=== PATIENT | female | born 1960 | race Caucasian/White ===

== ENCOUNTER 2018-06-18 06:26 | Day surgery (SDC) | payer BC, SELFPAY ==
[2018-06-18 06:30] VITALS: BP 142/85; PULSE 69; RESP 17; TEMP 36.2; O2SAT 97
--- NOTE | 2018-06-18 07:37 | W.PM.DSUDISC ---
Discharge Plan Discharge Details Reason For Visit: LOWER LIP BIOPSY Attending Provider: Sharif Nagel Primary Care Provider: Anthony Samaniego Home Meds and New Rx's Prescriptions: No Action lactulose 10 GM/15 ML solution 30 g PO BID PRNQty: 500 RF: 1 ibuprofen 800 MG tablet 800 mg PO QID PRN Qty: 90 RF: 2 erythromycin [Patel-Tab] 250 MG tablet,delayed release (DR/EC) 250 mg PO AC Qty: 90 RF: 2 albuterol sulfate [Ventolin HFA] 8 GM HFA aerosol inhaler 2 puff Inhalation Q4H PRN PRN (Reason: Wheezing) Qty: 1 RF: 0 Discharge Instructions Additional Instructions: see sheet
--- NOTE | 2018-06-18 08:10 | SAL_PTH ---
PATIENT: Ai Morrison LOC: [facility] U#:[id number] AGE/SX: 58/F ROOM: RE06/18/[address]: Sharif Nagel DO : 1960 BED: DIS: 06/18/2018 SPEC #: [id number] RECD: 06/18/18 12:56 STATUS: TANYA REQ #: [id number] CAMILA: 06/18/18 08:[address]: Sharif Nagel DEPT: Surgical Specimen RECD BY: Natalia Galan ENTERED: 06/18/18 12:57 SP TYPE: YURI FERNANDO DR: Anthony Samaniego MD Tissues: 1 - SALIVARY GLAND BIOPSY Procedures: GROSS AND MICRO LEVEL 4 Comments: [id number]
--- NOTE | 2018-06-18 09:25 | ROE_ITS ---
DATE OF PROCEDURE: June 18, 2018 PREOPERATIVE DIAGNOSIS: Dry mouth, rule out Sjogren's disease. POSTOPERATIVE DIAGNOSIS: Same. PROCEDURE: Two separate biopsies of lower lip, stab incision technique, measuring .6 cm. Multiple b iopsies required for increased sensitivity and specificity and variety of minor salivary gland excisi on requirement; simple closure. SURGEON: Sharif Nagel D.O. ANESTHESIA: Local only with 1 cc of 1% Lidocaine with 1:100,000 epinephrine. COMPLICATIONS: None. CONDITION: The patient tolerated the procedure well. SPECIMENS: 1. Minor salivary glands x6 to pathology. INDICATIONS FOR PROCEDURE: This is a pleasant 58-year-old female that is being worked up for Sjogren 's disease. She has had indeterminate laboratory evaluation and has been referred to me for lower li p biopsy of the minor salivary glands to aid in diagnosis to include an increased specificity and sen sitivity of this process. We have opted to proceed with biopsy and gathering of different surgical s ites, so two different biopsy sites were required. Consent was placed in the chart. PROCEDURE: The patient was brought back to the operating suite in stable condition and placed supine on the operating table, given 1 cc of 1% Lidocaine with 1:100,000 epinephrine after it was injected into the right lateral lip. A chalazion clamp was used to isolate two different bundles of minor baldo ivary glands to increase diagnostic probability. A .6 cm stab incision was made to the lip mucosa ov erlying the minor salivary glands. These were removed with sharp dissection. Hemostasis was contro lled with bipolar cautery. This was performed again at two separate identifiable sites to have a gre ater variety of minor salivary gland sampling. Each stab incision was closed with interrupted 4-0 un dyed Vicryl, three placed in a simple fashion. The patient tolerated the procedure well and was stab le to PACU.
== END 2018-06-18 08:29 | disposition home or self-care (01) ==
LOC: SUR 06:27
PROVIDERS: PCP Family Medicine; Visit Provider Otolaryngology Otolaryngology/Facial Plastic Surgery
PROC: 0HB1XZZ Excision of Face Skin, External Approach (ICD-10-PCS; CPT 40490; principal; 2018-06-18 07:30)
DX: M35.00 Sjogren syndrome, unspecified (principal); R68.2 Dry mouth, unspecified
CPT/HCPCS: 40490; 88305

== ENCOUNTER 2018-08-22 00:26 | Outpatient (CLI) | payer BC, SELFPAY ==
[2018-08-22] MEDS: Omnipaque 350 MG/ML 50 ML BTL PO (08:35)
[2018-08-22] MEDS: Breeza Beverage 473 ML BTL PO ×2 (08:35→08:36)
--- NOTE | 2018-08-22 09:10 | DI.CT_ITS ---
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 Images were performed from the lung bases through the ischial tuberosities after IV and oral contrast. The oral contrast is seen in the stomach through distal small bowel. The terminal ileum and colon are not opacified with oral contrast and are suboptimally evaluated. There is increased stool seen throughout the colon. Diverticula are again noted in the lower descending and sigmoid regions. No diverticulitis is seen currently. The appendix appears normal. There is no small bowel dilatation or fold thickening. There is no free air or free fluid. The lung bases are clear. The liver, spleen, pancreas and right adrenal are unremarkable. The patient is status post cholecystectomy. There is a stable low density left adrenal nodule, consistent with an adenoma. The bladder, uterus and ovaries are unremarkable. IMPRESSION: Increased stool. No acute inflammatory changes are identified.
[2018-08-22] MEDS: Omnipaque 350 MG/ML 100 ML BTL IJ (09:16)
== END 2018-08-22 00:46 ==
PROVIDERS: PCP Family Medicine; Visit Provider Internal Medicine Gastroenterology
DX: K90.0 Celiac disease (principal); K59.09 Other constipation; K57.30 Diverticulosis of large intestine without perforation or abscess without bleeding
CPT/HCPCS: 74177; J3490; Q9967

== ENCOUNTER 2018-08-22 14:06 | Emergency (ER) | payer BC, SELFPAY ==
[2018-08-22 14:13] VITALS: BP 159/81; PULSE 71; RESP 16; TEMP 36.5; O2SAT 98
--- NOTE | 2018-08-22 14:45 | W.ED.GENAD ---
Discharge Plan Disposition Patient Disposition: HOME Condition: Improving Discharge Details Chief Complaint: Abd Prob Clinical Impression: Nausea & vomiting Primary Care Provider: Anthony Samaniego ED Provider: Carla Minor Home Meds and New Rx's Prescriptions: New ondansetron 4 mg tablet,disintegrating 4 mg PO QID PRN (Reason: nausea and vomiting) Qty: 10 RF: 0 No Action lactulose 10 GM/15 ML solution 30 g PO BID PRNQty: 500 RF: 1 erythromycin [Patel-Tab] 250 MG tablet,delayed release (DR/EC) 250 mg PO AC Qty: 90 RF: 2 ibuprofen 800 mg tablet 800 mg PO TID PRN (Reason: pain) Qty: 90 RF: 2 albuterol sulfate [Ventolin HFA] 8 GM HFA aerosol inhaler 2 puff Inhalation Q4H PRN PRN (Reason: Wheezing) Qty: 1 RF: 0 Discharge Instructions Instructions: Acute Nausea and Vomiting (ED) Additional Instructions: Encourage hydration. Zofran as prescribed to help with nausea or vomiting. Please follow up with primary care if symptoms persist. If you develop fevers/chills, increased pain, inability to stay hydrated or other new/worsening symptoms please seek care urgently once again. Please keep upcoming appointment with [facility]. Referrals: Anthony Samaniego. [Primary Care Provider] - Discharge Data Discharge Date/Time-TO BE ENTERED AT DEPARTURE: 08/22/18 17:18 Medical Decision Making Patient is a 58-year-old female presenting today with chief complaint of nausea, vomiting and abdominal discomfort. She reports she underwent a CT this morning to evaluate no enlarged lymph nodes. It was ordered by gastroenterology at [facility]. She reports she received both IV and oral contrast. Since that time she has had nausea and vomiting. No difficulty breathing, shortness of breath or rash noted. Has not had episodes like this following previous CT scans. Reports that she has had multiple CTs previously. Contacted gastroenterology who advised evaluation in the emergency department states she is vomited x5 and reports is been forceful. States that around the time of her emesis, she develops abdominal discomfort which she reports is mild and rates it at a 3 out of 10. Reports that this has been migratory and is not reproducible on exam. Patient has history of Sjogren's, celiac, chronic constipation. Reviewed CT that was completed this morning. Radiologist notes increased stool seen throughout the colon. Diverticula are again noted in the lower descending and sigmoid colons. No diverticulitis seen currently. Appendix appears normal. No small bowel dilation or fold thickening. No free air or free fluid. Lung bases are clear. The liver, spleen, pancreas and right adrenal are unremarkable. Patient status post cholecystectomy. There is a stable low-density left adrenal nodule consistent with an adenoma. The bladder, uterus and ovaries are unremarkable Labs without acute abnormality. Discussed these findings with the patient. She received 4 mg of IV Zofran and 50 mg of Toradol. Reports the nausea and headache are minimally better but is requesting further medication at this time. Augment this with Phenergan and 2 mg of morphine. Discussed medical patient was in agreement Patient reports she is feeling much improved. Has been able to tolerate po intake, is drinking water and coffee. Has not been vomiting since being here. We discussed that her nausea and vomiting may be associated with the oral contrast, no signs of further reaction, no evidence of anyphylaxis. Symptoms began over an our after scan. We discussed new/worsening symptoms and when to seek care urgently once again. In particular, advised on signs of reaction. She will contact her GI speciaist at [facility] to discuss CT findings and current ocmplaints. She has upcoming appointment next week. All of her questions and concerns were addressed, she isin agreement with this plan. HPI General Mode of arrival: ambulatory. Date/Time Provider Initiated Documentation: 08/22/18 14:18. Limitations to Documentation: no limitations. Information obtained by: patient. History of Present Illness 58 year old F presents to the emergency department with the chief complaint of Nausea, vomiting and abdominal discomfort, described as mild, with intensity rated at 3. Quality is described as aching, and is localized to the abdomen. Patient reports no radiation. Patient started experiencing this hour(s) and it has been constant. No relieving factors improve symptom(s), No exacerbating factors reported . Patient notes headaches, loss of appetite and nausea/vomiting; denies chest pain, cough, fever/chills, rash, shortness of breath and weakness. Patient did receive the following treatments prior to arrival, none Related Data Home Medications Medication Instructions Recorded Confirmed lactulose 30 g PO BID PRN #500 ml 04/01/15 albuterol sulfate [Ventolin Hfa] 2 puff INHALATION Q4H PRN PRN #1 10/12/16 hfa.aer.ad erythromycin [Patel-Tab] 250 mg PO AC #90 tab-cap 12/15/17 06/18/18 ondansetron 4 mg PO QID PRN #10 tab 08/22/18 ibuprofen 800 mg tablet 800 mg PO TID PRN #90 tab 08/23/18 Previous Rx's Medication Instructions Recorded albuterol sulfate [Ventolin Hfa] 2 puff INHALATION Q4H PRN PRN #1 10/12/16 hfa.aer.ad erythromycin [Patel-Tab] 250 mg PO AC #90 tab-cap 12/15/17 ondansetron 4 mg PO QID PRN #10 tab 08/22/18 ibuprofen 800 mg tablet 800 mg PO TID PRN #90 tab 08/23/18 Allergies Allergy/AdvReac Type Severity Reaction Status Date / Time gluten Allergy Severe Severe Verified 06/18/18 06:39 constipation levofloxacin [From Levaquin] AdvReac Severe Contraindic Verified 06/18/18 06:39 ated General Stated Complaint: Abd Prob DIANA: 3 Review of Systems Constitutional Reports as per HPI, Denies chills, Denies fatigue, Denies fever(s) and Denies headache(s) ENT Denies headache(s) Cardiovascular Reports as per HPI, Denies chest pain and Denies dyspnea Respiratory Denies dyspnea Gastrointestinal Reports as per HPI, Reports abdominal pain, Denies melena, Denies change in bowel habits (Patient endorses chronic constipation), Reports constipation, Denies heartburn, Reports nausea and Reports vomiting (x5) Genitourinary Reports system reviewed and no additional complaints, except as docu (Patient denies any change in urinary habits) Musculoskeletal Reports as per HPI and Denies back pain Integumentary/Breasts Reports as per HPI and Denies rash Neurologic Denies headache(s) Endocrine Denies fatigue PFSH Social History Smoking/Tobacco Use Status: Never Surgical History section Colonoscopy - IV Sedation (02/06/13) EGD - IV Sedation (02/06/13) Social History (Reviewed 08/22/18 @ 14:57 by DEVON Echavarria Smoking/Tobacco Use Status: Never Exam Const General: cooperative, healthy appearing, comfortable, no acute distress and well developed Nutritional Appearance: well nourished and overweight Orientation: alert and awake HENMT Head: normal to inspection Mouth: moist mucous membranes Resp Effort & Inspection: normal respiratory effort, able to speak in complete sentences and no respiratory distress Auscultation: clear to auscultation bilaterally, no rales, no rhonchi and no wheezes Cardio Rate: regular rate Rhythm: regular rhythm Heart Sounds: S1 normal and S2 normal GI Inspection: normal to inspection, no edema, non-distended and obesity Palpation: soft, no hepatosplenomegaly, not firm, no guarding, not rigid and nontender Auscultation: normal bowel sounds Back/Spine/Pelvis Back: no CVA tenderness Skin General skin exam: no rashes or lesions noted Trauma: no lacerations or abrasions Neuro General: alert and awake Cognition: normal cognition Speech: speech normal Gait: normal gait Psych Appearance: grossly normal and well kempt Mental Status: mental status grossly normal Speech and Movement: speech and movement normal Course Vital Signs Temperature 36.5 C 08/22/18 14:13 Pulse 71 08/22/18 14:13 Respiratory Rate 16 08/22/18 14:13 Blood Pressure 159/81 H 08/22/18 14:13 Pulse Oximetry 98 08/22/18 14:13 Temperature 36.5 C 08/22/18 14:13 Temperature Source Skin 08/22/18 14:13 Pulse 71 08/22/18 14:13 Respiratory Rate 16 08/22/18 14:13 Respiratory Effort 08/22/18 14:16 Blood Pressure 159/81 H 08/22/18 14:13 Blood Pressure Position Sitting 08/22/18 14:13 Pulse Oximetry 98 08/22/18 14:13 Oxygen Delivery Method Room Air 08/22/18 14:13 Oxygen Flow Rate 0 08/22/18 14:13 Pain Level 8 08/22/18 14:13 Comment 08/22/18 14:13
--- NOTE | 2018-08-22 15:01 | ED.GENADUL_ITS ---
Discharge Plan Disposition Patient Disposition: HOME Condition: Improving Discharge Details Chief Complaint: Abd Prob Clinical Impression: Nausea & vomiting Primary Care Provider: Anthony Samaniego ED Provider: Carla Minor Home Meds and New Rx's Prescriptions: New ondansetron 4 mg tablet,disintegrating 4 mg PO QID PRN (Reason: nausea and vomiting) Qty: 10 RF: 0 No Action lactulose 10 GM/15 ML solution 30 g PO BID PRNQty: 500 RF: 1 erythromycin [Patel-Tab] 250 MG tablet,delayed release (DR/EC) 250 mg PO AC Qty: 90 RF: 2 ibuprofen 800 mg tablet 800 mg PO TID PRN (Reason: pain) Qty: 90 RF: 2 albuterol sulfate [Ventolin HFA] 8 GM HFA aerosol inhaler 2 puff Inhalation Q4H PRN PRN (Reason: Wheezing) Qty: 1 RF: 0 Discharge Instructions Instructions: Acute Nausea and Vomiting (ED) Additional Instructions: Encourage hydration. Zofran as prescribed to help with nausea or vomiting. Please follow up with primary care if symptoms persist. If you develop fevers/ chills, increased pain, inability to stay hydrated or other new/worsening symptoms please seek care urgently once again. Please keep upcoming appointment with [facility]. Referrals: Anthony Samaniego. [Primary Care Provider] - Discharge Data Discharge Date/Time-TO BE ENTERED AT DEPARTURE: 08/22/18 17:18 Medical Decision Making Patient is a 58-year-old female presenting today with chief complaint of nausea , vomiting and abdominal discomfort. She reports she underwent a CT this morning to evaluate no enlarged lymph nodes. It was ordered by gastroenterology at [facility]. She reports she received both IV and oral contrast. Since that time she has had nausea and vomiting. No difficulty breathing, shortness of breath or rash noted. Has not had episodes like this following previous CT scans. Reports that she has had multiple CTs previously. Contacted gastroenterology who advised evaluation in the emergency department states she is vomited x5 and reports is been forceful. States that around the time of her emesis, she develops abdominal discomfort which she reports is mild and rates it at a 3 out of 10. Reports that this has been migratory and is not reproducible on exam. Patient has history of Sjogren's, celiac, chronic constipation. Reviewed CT that was completed this morning. Radiologist notes increased stool seen throughout the colon. Diverticula are again noted in the lower descending and sigmoid colons. No diverticulitis seen currently. Appendix appears normal. No small bowel dilation or fold thickening. No free air or free fluid. Lung bases are clear. The liver, spleen, pancreas and right adrenal are unremarkable. Patient status post cholecystectomy. There is a stable low- density left adrenal nodule consistent with an adenoma. The bladder, uterus and ovaries are unremarkable Labs without acute abnormality. Discussed these findings with the patient. She received 4 mg of IV Zofran and 50 mg of Toradol. Reports the nausea and headache are minimally better but is requesting further medication at this time. Augment this with Phenergan and 2 mg of morphine. Discussed medical patient was in agreement Patient reports she is feeling much improved. Has been able to tolerate po intake, is drinking water and coffee. Has not been vomiting since being here. We discussed that her nausea and vomiting may be associated with the oral contrast, no signs of further reaction, no evidence of anyphylaxis. Symptoms began over an our after scan. We discussed new/worsening symptoms and when to seek care urgently once again. In particular, advised on signs of reaction. She will contact her GI speciaist at [facility] to discuss CT findings and current ocmplaints. She has upcoming appointment next week. All of her questions and concerns were addressed, she isin agreement with this plan. HPI General Mode of arrival: ambulatory . Date/Time Provider Initiated Documentation: 08/22/18 14:18 . Limitations to Documentation: no limitations . Information obtained by: patient . History of Present Illness 58 year old F presents to the emergency department with the chief complaint of Nausea, vomiting and abdominal discomfort, described as mild, with intensity rated at 3. Quality is described as aching, and is localized to the abdomen. Patient reports no radiation. Patient started experiencing this hour(s) and it has been constant. No relieving factors improve symptom( s), No exacerbating factors reported . Patient notes headaches, loss of appetite and nausea/vomiting; denies chest pain, cough, fever/chills, rash, shortness of breath and weakness. Patient did receive the following treatments prior to arrival, none Related Data Home Medications Medication Instructions Recorded Confirmed lactulose 30 g PO BID PRN #500 ml 04/01/15 albuterol sulfate [Ventolin Hfa] 2 puff INHALATION Q4H PRN PRN #1 10/12/16 hfa.aer.ad erythromycin [Patel-Tab] 250 mg PO AC #90 tab-cap 12/15/17 06/18/18 ondansetron 4 mg PO QID PRN #10 tab 08/22/18 ibuprofen 800 mg tablet 800 mg PO TID PRN #90 tab 08/23/18 Previous Rx's Medication Instructions Recorded albuterol sulfate [Ventolin Hfa] 2 puff INHALATION Q4H PRN PRN #1 10/12/16 hfa.aer.ad erythromycin [Patel-Tab] 250 mg PO AC #90 tab-cap 12/15/17 ondansetron 4 mg PO QID PRN #10 tab 08/22/18 ibuprofen 800 mg tablet 800 mg PO TID PRN #90 tab 08/23/18 Allergies Allergy/AdvReac Type Severity Reaction Status Date / Time gluten Allergy Severe Severe Verified 06/18/18 06:39 constipation levofloxacin [From Levaquin] AdvReac Severe Contraindic Verified 06/18/18 06:39 ated General Stated Complaint: Abd Prob DIANA: 3 Review of Systems Constitutional Reports as per HPI, Denies chills, Denies fatigue, Denies fever(s) and Denies headache(s) ENT Denies headache(s) Cardiovascular Reports as per HPI, Denies chest pain and Denies dyspnea Respiratory Denies dyspnea Gastrointestinal Reports as per HPI, Reports abdominal pain, Denies melena, Denies change in bowel habits (Patient endorses chronic constipation), Reports constipation, Denies heartburn, Reports nausea and Reports vomiting (x5) Genitourinary Reports system reviewed and no additional complaints, except as docu (Patient denies any change in urinary habits) Musculoskeletal Reports as per HPI and Denies back pain Integumentary/Breasts Reports as per HPI and Denies rash Neurologic Denies headache(s) Endocrine Denies fatigue PFSH Social History Smoking/Tobacco Use Status: Never Surgical History section Colonoscopy - IV Sedation (02/06/13) EGD - IV Sedation (02/06/13) Social History (Reviewed 08/22/18 @ 14:57 by DEVON Echavarria Smoking/Tobacco Use Status: Never Exam Const General: cooperative, healthy appearing, comfortable, no acute distress and well developed Nutritional Appearance: well nourished and overweight Orientation: alert and awake HENMT Head: normal to inspection Mouth: moist mucous membranes Resp Effort & Inspection: normal respiratory effort, able to speak in complete sentences and no respiratory distress Auscultation: clear to auscultation bilaterally, no rales, no rhonchi and no wheezes Cardio Rate: regular rate Rhythm: regular rhythm Heart Sounds: S1 normal and S2 normal GI Inspection: normal to inspection, no edema, non-distended and obesity Palpation: soft, no hepatosplenomegaly, not firm, no guarding, not rigid and nontender Auscultation: normal bowel sounds Back/Spine/Pelvis Back: no CVA tenderness Skin General skin exam: no rashes or lesions noted Trauma: no lacerations or abrasions Neuro General: alert and awake Cognition: normal cognition Speech: speech normal Gait: normal gait Psych Appearance: grossly normal and well kempt Mental Status: mental status grossly normal Speech and Movement: speech and movement normal Course Vital Signs Temperature 36.5 C 08/22/18 14:13 Pulse 71 08/22/18 14:13 Respiratory Rate 16 08/22/18 14:13 Blood Pressure 159/81 H 08/22/18 14:13 Pulse Oximetry 98 08/22/18 14:13 Temperature 36.5 C 08/22/18 14:13 Temperature Source Skin 08/22/18 14:13 Pulse 71 08/22/18 14:13 Respiratory Rate 16 08/22/18 14:13 Respiratory Effort 08/22/18 14:16 Blood Pressure 159/81 H 08/22/18 14:13 Blood Pressure Position Sitting 08/22/18 14:13 Pulse Oximetry 98 08/22/18 14:13 Oxygen Delivery Method Room Air 08/22/18 14:13 Oxygen Flow Rate 0 08/22/18 14:13 Pain Level 8 08/22/18 14:13 Comment 08/22/18 14:13
[2018-08-22] MEDS: Ondansetron 4 MG/2 ML VIAL IVP (15:02)
[2018-08-22] MEDS: Ketorolac 15 MG/ML VIAL IVP (15:02)
[2018-08-22] MEDS: Normal Saline 1,000 ML 1000 ML IV (15:02)
[2018-08-22 15:10] LABS: Abs Immature Grans 0.01 k/cumm (0.0-0.09); Absolute Basophil Count 0.02 k/cumm (0.0-0.2); Absolute Eosinophil Count 0.02 k/cumm (0.0-0.7); Absolute Lymphocyte Count 1.04 k/cumm (1.2-3.4); Absolute Monocyte Count 0.29 k/cumm (0.11-0.7); Absolute Neutrophil Count 5.71 k/cumm (1.2-6.7); Basophils % 0.3; Eosinophils % 0.3; HCT 37.9 % (36.0-46.0); HGB 12.7 g/dL (12.0-15.5); Immature Grans % 0.1; Lymphocytes % 14.7; Mean Corp. HGB Concentration 33.5 g/dL (32.0-36.0); Mean Corpuscular Hemoglobin 32.3 pg (27.0-33.0); Mean Corpuscular Volume 96.4 fL (80-95); Mean Platelet Volume 10.7 fL (8.0-11.0); Monocytes % 4.1; Neutrophils % 80.5; Platelet Count 261 x1000/uL (130-400); RBC 3.93 m/cumm (4.00-5.20); RBC Distribution Width 13.1 % (11.7-14.6); White Blood Cell Count 7.09 k/cumm (4.4-10.8)
[2018-08-22 15:23] LABS: ALT 21 U/L (12-78); AST 18 U/L (15-37); Albumin 3.6 g/dL (3.4-5.0); Alkaline Phosphatase 107 U/L (46-116); Anion Gap 8.7 mmol/L (3-11); BUN 18 mg/dL (7-18); Bilirubin, Total 0.4 mg/dL (0.2-1.0); CO2 27.3 mmol/L (21.0-32.0); CREATININE 0.93 mg/dL (0.55-1.02); Chloride 103 mmol/L (98-107); Glucose 110 mg/dL (70-100); Potassium 3.8 mmol/L (3.5-5.1); Sodium 139 mmol/L (136-145); Total Protein 7.4 g/dL (6.4-8.2)
[2018-08-22 15:31] LABS: Lipase 65 U/L (73-393)
[2018-08-22] MEDS: MORPHine 10 MG/ML VIAL 2 MG IVP (15:55)
[2018-08-22 16:34] VITALS: O2SAT 94
[2018-08-22 16:40] VITALS: O2SAT 94
[2018-08-22 16:46] VITALS: BP 116/58; PULSE 71
[2018-08-22 17:01] VITALS: BP 122/61; PULSE 77
[2018-08-22 17:11] VITALS: BP 122/61; PULSE 77; RESP 16; TEMP 36.7; O2SAT 94
== END 2018-08-22 17:18 | disposition home or self-care (01) ==
LOC: ER 17:20
PROVIDERS: Emergency Provider Physician Assistant; PCP Family Medicine
DX: R11.2 Nausea with vomiting, unspecified (principal)
CPT/HCPCS: 36415; 80053; 83690; 96374; 96375; 99284; 85025; J1885; J2270; J2405

== ENCOUNTER 2019-03-06 07:10 | Outpatient (CLI) | payer BC, SELFPAY ==
--- NOTE | 2019-03-06 07:40 | DI.MAMMO_ITS ---
SYMPTOM/DIAGNOSIS: SCREENING, Z12.31 MAMMOGRAMS: Mammograms were interpreted according to the usual protocol including computer analysis with CAD system, tomosynthesis and C view imaging. Comparison is with prior examinations. No suspicious masses or microcalcifications are seen. There is no definite evidence of malignancy. IMPRESSION: Negative mammogram. Routine screening is recommended. Category 1, breast density A. MQSA ASSESSMENT OF FINDINGS: Negative. Category 1. Patient will receive a letter notifying them of these results. BI-RAD category A. The breasts are almost entirely fatty.
== END 2019-03-06 07:30 ==
PROVIDERS: PCP Family Medicine; Visit Provider Obstetrics & Gynecology
DX: Z12.31 Encounter for screening mammogram for malignant neoplasm of breast (principal)
CPT/HCPCS: 77063; 77067

== ENCOUNTER 2019-10-16 10:40 | Outpatient (CLI) | payer BC, SELFPAY ==
[2019-10-16 12:51] LABS: Calculated LDL 90 mg/dL; Cholesterol 165 mg/dL (<200); HDL Cholesterol 64 mg/dL (40-60); Triglyceride 57 mg/dL (<150)
== END 2019-10-16 11:00 ==
PROVIDERS: PCP Family Medicine; Visit Provider Family Medicine
DX: E78.5 Hyperlipidemia, unspecified (principal)
CPT/HCPCS: 36415; 80061

== ENCOUNTER 2020-04-15 02:19 | Outpatient (CLI) | payer BC, SELFPAY ==
--- NOTE | 2020-04-15 | DI.MAMMO_ITS ---
EXAM: MG MAMMO SCREENING CLINICAL HISTORY: SCREENING, Z12.31 TECHNIQUE: Bilateral full field digital CC and MLO mammographic images were obtained with 3D tomosyn thesis and utilizing computer aided detection (CAD). COMPARISON: Available for comparison. FINDINGS: Masses/Architectural Distortion: None seen. Microcalcifications: No suspicious pleomorphic-type are seen. Skin Thickening/Nipple Retraction: None. IMPRESSION: 1. No significant interval change with no specific features of malignancy noted. 2. Unless there is more urgent need, screening mammography is recommended, as per [employer] guidelines. BI-RADS Category 1 - Negative Breast Density - Category A - Almost entirely fatty A negative radiographic report should not delay biopsy if a dominant or clinically suspicious mass is present. Up to ten percent of cancers are not identified on mammography. A negative report may reinforce clinical impression. Adenosis and dense breasts may obscure an underlying neoplasm. False positive reports average 6 to 10%. Patient will receive a letter notifying them of these results.
== END 2020-04-15 02:39 ==
PROVIDERS: PCP Family Medicine; Visit Provider Obstetrics & Gynecology
DX: Z12.31 Encounter for screening mammogram for malignant neoplasm of breast (principal)
CPT/HCPCS: 77063; 77067

== ENCOUNTER 2020-12-22 03:45 | Outpatient (CLI) | payer BC, SELFPAY ==
[2020-12-22 10:46] LABS: Abs Immature Grans 0.01 10^3/uL (0.0-0.06); Absolute Basophil Count 0.04 10^3/uL (0.0-0.2); Absolute Eosinophil Count 0.11 10^3/uL (0.0-0.7); Absolute Lymphocyte Count 1.42 10^3/uL (1.2-3.4); Absolute Monocyte Count 0.34 10^3/uL (0.1-0.8); Basophils % 0.9; Eosinophils % 2.5; HCT 37.6 % (36.0-46.0); HGB 12.2 g/dL (11.2-15.7); Immature Grans % 0.2; Lymphocytes % 32.6; MCH 32.4 pg (27.0-33.0); MCHC 32.4 % (32.0-36.0); MPV 10.9 fL (8.0-11.0); Monocytes % 7.8; Nucleated RBC 0 %; Platelet Count 261 10^3/uL (130-400); RBC 3.76 10^6/uL (3.93-5.22); RDW 13.1 % (11.7-14.6); RDW-SD 48.3 fL; WBC 4.35 10^3/uL (4.4-10.8)
[2020-12-22 10:49] LABS: Absolute Neutrophil Count 2.44 10^3/uL (1.2-6.7)
[2020-12-22 10:55] LABS: ESR 10 mm//hr (0-30)
[2020-12-22 11:16] LABS: ALT 20 U/L (14-59); AST 19 U/L (15-37); Albumin 3.8 g/dL (3.4-5.0); Alkaline Phosphatase 105 U/L (46-116); Bilirubin, Direct 0.1 mg/dL (0.0-0.2); Bilirubin, Total 0.4 mg/dL (0.2-1.0); C-Reactive Protein < 0.05 mg/dL (0.0-0.3); Estimated GFR 56.56 (mL/min/1.73m2); Total Protein 7.1 g/dL (6.4-8.2)
[2020-12-23 09:15] LABS: C3 Complement 110 mg/dL (81-157); C4 Complement 23 mg/dL (13-39)
[2020-12-23 13:09] LABS: Albumin 61.6 % (55.8-66.1); Total Protein 6.4 g/dL (6.3-8.2)
[2020-12-23 17:54] LABS: Complement, Total >75 U/mL (30-75)
[2020-12-24 04:33] LABS: Vitamin D 25 Total 47.2 ng/mL (30-100)
[2020-12-24 13:41] LABS: Cryoglobulin, S Negative %ppt (Negative)
[2020-12-24 13:42] LABS: dsDNA Ab, IgG <12.3 IU/mL (<30.0)
== END 2020-12-22 03:46 | disposition home or self-care (01) ==
LOC: LBO 03:45
PROVIDERS: PCP Family Medicine; Visit Provider Internal Medicine
DX: M35.00 Sjogren syndrome, unspecified (principal); E55.9 Vitamin D deficiency, unspecified; Z79.899 Other long term (current) drug therapy; M25.59 Pain in other specified joint
CPT/HCPCS: 36415; 80076; 82306; 85652; 82565; 82595; 84165; 85025; 86140; 86160; 86162; 86225

== ENCOUNTER 2021-05-10 03:03 | Outpatient (CLI) | payer BC, SELFPAY ==
[2021-05-10 08:01] LABS: Calculated LDL 96 mg/dL (<100); Cholesterol 187 mg/dL (<200); HDL Cholesterol 80 mg/dL (40-60); Triglyceride 56 mg/dL (<150)
== END 2021-05-10 03:04 | disposition home or self-care (01) ==
LOC: LBO 03:04
PROVIDERS: PCP Family Medicine; Visit Provider Family Medicine
DX: E78.5 Hyperlipidemia, unspecified (principal)
CPT/HCPCS: 36415; 80061

== ENCOUNTER 2021-06-16 18:43 | Outpatient (REF) | payer BC, SELFPAY ==
[2021-06-18 10:56] LABS: COVID-19 RT-PCR UVMMC Result Negative (Negative)
== END 2021-06-16 18:44 | disposition home or self-care (01) ==
LOC: LBN 18:43
PROVIDERS: PCP Family Medicine; Visit Provider Nurse Practitioner Family
DX: Z20.822 Contact with and (suspected) exposure to COVID-19 (principal); R05 Cough
CPT/HCPCS: U0003

== ENCOUNTER 2021-06-23 03:32 | Outpatient (CLI) | payer BC, SELFPAY ==
[2021-06-23 16:05] LABS: Abs Immature Grans 0.01 10^3/uL (0.0-0.06); Absolute Basophil Count 0.06 10^3/uL (0.0-0.2); Absolute Eosinophil Count 0.11 10^3/uL (0.0-0.7); Absolute Lymphocyte Count 2.01 10^3/uL (1.2-3.4); Absolute Monocyte Count 0.37 10^3/uL (0.1-0.8); Absolute Neutrophil Count 2.86 10^3/uL (1.2-6.7); Basophils % 1.1; HCT 36.7 % (36.0-46.0); HGB 11.9 g/dL (11.2-15.7); Immature Grans % 0.2; Lymphocytes % 37.1; MCH 32.7 pg (27.0-33.0); MCHC 32.4 % (32.0-36.0); MCV 100.8 fL (80-95); MPV 9.9 fL (8.0-11.0); Monocytes % 6.8; Neutrophils % 52.8; Nucleated RBC 0 %; Platelet Count 270 10^3/uL (130-400); RBC 3.64 10^6/uL (3.93-5.22); RDW 13.2 % (11.7-14.6); RDW-SD 49.4 fL; WBC 5.42 10^3/uL (4.4-10.8)
[2021-06-23 16:10] LABS: ESR 11 mm/hr (0-30)
[2021-06-23 16:48] LABS: ALT 26 U/L (14-59); AST 23 U/L (15-37); Alkaline Phosphatase 109 U/L (46-116); Bilirubin, Direct 0.1 mg/dL (0.0-0.2); Bilirubin, Total 0.2 mg/dL (0.2-1.0); C-Reactive Protein 0.06 mg/dL (0.0-0.3); Estimated GFR 56.37 (mL/min/1.73m2); Total Protein 7.2 g/dL (6.4-8.2)
[2021-06-24 19:48] LABS: Rheumatoid Factor <8.6 IU/mL (<12.0)
[2021-06-25 09:29] LABS: C3 Complement 117 mg/dL (81-157); C4 Complement 24 mg/dL (13-39)
[2021-06-25 17:42] LABS: Complement, Total 75 U/mL (30-75)
[2021-06-28 12:19] LABS: Cryoglobulin, S Negative %ppt (Negative)
[2021-06-29 10:41] LABS: dsDNA Ab, IgG <12.3 IU/mL (<30.0)
== END 2021-06-23 03:33 | disposition home or self-care (01) ==
LOC: LBO 03:32
PROVIDERS: PCP Family Medicine; Visit Provider Internal Medicine
DX: M35.00 Sjogren syndrome, unspecified (principal); M19.90 Unspecified osteoarthritis, unspecified site; Z79.899 Other long term (current) drug therapy; R21 Rash and other nonspecific skin eruption
CPT/HCPCS: 36415; 80076; 85652; 82565; 82595; 85025; 86140; 86160; 86162; 86225; 86431

== ENCOUNTER 2021-09-29 01:24 | Outpatient (CLI) | payer BC, SELFPAY ==
--- NOTE | 2021-09-29 11:00 | DI.MAMMO_ITS ---
Exam(s) MAMMO SCREENING EXAM: MAMMO SCREENING CLINICAL HISTORY: SCREENING, Z12.31 TECHNIQUE: Mammograms were interpreted according to the usual protocol including computer analysis w [employer] CAD system, tomosynthesis and C-view imaging. COMPARISON: FINDINGS: The breasts are of moderate density with fairly symmetrical distribution of fibroglandular tissue. N o dominant mass or clumped microcalcification is identified in either breast. The current examinatio n is compared with previous examinations including March 2020 and there has been no gross interval coty nge in appearance in comparison with the prior studies. IMPRESSION: No specific evidence of malignancy at this time. Routine screening examinations are suggested at yea rly intervals in this age group according to the ACS ACR guidelines. BI-RADS Category 1 - Negative Breast Density - Category B - Scattered areas of fibroglandular density
== END 2021-09-29 01:44 ==
PROVIDERS: PCP Family Medicine; Visit Provider Obstetrics & Gynecology
DX: Z12.31 Encounter for screening mammogram for malignant neoplasm of breast (principal)
CPT/HCPCS: 77063; 77067

== ENCOUNTER 2021-09-29 01:25 | Outpatient (CLI) | payer BC, SELFPAY ==
--- NOTE | 2021-09-29 10:52 | DI.RAD_ITS ---
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 Cartilaginous joint space of the glenohumeral joint appears fairly well ma intained. There are mild hypertrophic degenerative changes of acromioclavicular and glenohumeral viri nts, small marginal osteophytes seen inferiorly at the humeral head glenoid. No erosive or destructi ve process. No abnormal soft tissue calcifications. IMPRESSION: Mild degenerative changes as described above. RADIATION DOSE DELIVERED: Total DLP
--- NOTE | 2021-09-29 10:52 | DI.RAD_ITS ---
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 The cartilaginous joint space of the glenohumeral joint appears fairly well maintained. Mild hypertrophic degenerative changes of acromioclavicular and glenoid humeral joints are noted. No other significant bony abnormality seen. No gross erosive or destructive process iden tified. No abnormal soft tissue calcifications. IMPRESSION: Mild degenerative changes as described above. RADIATION DOSE DELIVERED: Total DLP
== END 2021-09-29 01:45 ==
PROVIDERS: PCP Family Medicine; Visit Provider Internal Medicine
DX: M25.511 Pain in right shoulder (principal); M25.512 Pain in left shoulder; M19.011 Primary osteoarthritis, right shoulder; M19.012 Primary osteoarthritis, left shoulder; G89.29 Other chronic pain
CPT/HCPCS: 73030

== ENCOUNTER 2021-10-13 02:15 | Outpatient (CLI) | payer BC, SELFPAY ==
[2021-10-13 08:42] LABS: Abs Immature Grans 0.01 10^3/uL (0.0-0.06); Absolute Basophil Count 0.04 10^3/uL (0.0-0.2); Absolute Eosinophil Count 0.11 10^3/uL (0.0-0.7); Absolute Lymphocyte Count 1.51 10^3/uL (1.2-3.4); Absolute Monocyte Count 0.38 10^3/uL (0.1-0.8); Basophils % 0.9; Eosinophils % 2.6; HCT 36.5 % (36.0-46.0); Immature Grans % 0.2; Lymphocytes % 35.4; MCH 32.6 pg (27.0-33.0); MCHC 32.9 % (32.0-36.0); MCV 99.2 fL (80-95); MPV 10.2 fL (8.0-11.0); Monocytes % 8.9; Nucleated RBC 0 %; Platelet Count 229 10^3/uL (130-400); RBC 3.68 10^6/uL (3.93-5.22); RDW 12.9 % (11.7-14.6); RDW-SD 47.1 fL; WBC 4.26 10^3/uL (4.4-10.8)
[2021-10-13 08:44] LABS: Absolute Neutrophil Count 2.22 10^3/uL (1.2-6.7)
[2021-10-13 08:54] LABS: ESR 8 mm/hr (0-30)
[2021-10-13 10:10] LABS: ALT 18 U/L (14-59); AST 19 U/L (15-37); Albumin 3.7 g/dL (3.4-5.0); Alkaline Phosphatase 85 U/L (46-116); Bilirubin, Direct 0.1 mg/dL (0.0-0.2); Bilirubin, Total 0.3 mg/dL (0.2-1.0); C-Reactive Protein 0.07 mg/dL (0.0-0.3); CREATININE 0.9 mg/dL (0.55-1.02); Total Protein 6.6 g/dL (6.4-8.2)
== END 2021-10-13 02:16 | disposition home or self-care (01) ==
LOC: LBO 02:16
PROVIDERS: PCP Family Medicine; Visit Provider Internal Medicine
DX: M35.00 Sjogren syndrome, unspecified (principal); H04.123 Dry eye syndrome of bilateral lacrimal glands; M25.511 Pain in right shoulder; M25.512 Pain in left shoulder; G89.29 Other chronic pain; M19.071 Primary osteoarthritis, right ankle and foot; Z51.81 Encounter for therapeutic drug level monitoring; Z79.899 Other long term (current) drug therapy
CPT/HCPCS: 36415; 80076; 85652; 82565; 85025; 86140

== ENCOUNTER 2021-10-29 01:50 | Outpatient (CLI) | payer BC, SELFPAY ==
[2021-10-29 13:32] LABS: Abs Immature Grans 0.01 10^3/uL (0.0-0.06); Absolute Basophil Count 0.04 10^3/uL (0.0-0.2); Absolute Eosinophil Count 0.08 10^3/uL (0.0-0.7); Absolute Lymphocyte Count 1.74 10^3/uL (1.2-3.4); Absolute Monocyte Count 0.32 10^3/uL (0.1-0.8); Absolute Neutrophil Count 3.22 10^3/uL (1.2-6.7); Basophils % 0.7; Eosinophils % 1.5; HGB 11.7 g/dL (11.2-15.7); Immature Grans % 0.2; Lymphocytes % 32.2; MCH 32.4 pg (27.0-33.0); MCHC 32.5 % (32.0-36.0); MCV 99.7 fL (80-95); MPV 10.3 fL (8.0-11.0); Monocytes % 5.9; Neutrophils % 59.5; Nucleated RBC 0 %; Platelet Count 246 10^3/uL (130-400); RBC 3.61 10^6/uL (3.93-5.22); RDW 12.9 % (11.7-14.6); RDW-SD 47.5 fL; WBC 5.41 10^3/uL (4.4-10.8)
[2021-10-29 14:30] LABS: Iron 64 ug/dL (50-170); Total Iron Binding Capacity 276 ug/dL (250-450)
[2021-10-29 14:38] LABS: Bilirubin Negative (Negative); Blood Negative (Negative); Clarity Clear (Clear); Glucose Negative (Negative); Ketones Negative (Negative); Leukocyte Esterase Negative (Negative); Nitrite Negative (Negative); Specific Gravity >= 1.030 (1.005-1.025); Urobilinogen 0.2 EU/dL (Up TO 0.2)
[2021-10-29 14:59] LABS: ALT 21 U/L (14-59); AST 18 U/L (15-37); Albumin 3.9 g/dL (3.4-5.0); Alkaline Phosphatase 90 U/L (46-116); BUN 19 mg/dL (7-18); Bilirubin, Total 0.3 mg/dL (0.2-1.0); Calcium 9.1 mg/dL (8.5-10.1); Chloride 105 mmol/L (98-107); Estimated GFR 56.37 (mL/min/1.73m2); Ferritin 129 ng/mL (8-252); Folate 4.7 ng/mL (8.6-20.0); Glucose 90 mg/dL (74-106); Potassium 3.6 mmol/L (3.5-5.1); Sodium 142 mmol/L (136-145); TSH 2.29 uIU/mL (0.36-3.74); Total Protein 7.1 g/dL (6.4-8.2); Vitamin B12 360 pg/mL (193-986)
[2021-10-29 15:11] LABS: Bilirubin, Direct 0.1 mg/dL (0.0-0.2)
[2021-10-29 22:40] LABS: Rheumatoid Factor <8.6 IU/mL (<12.0)
[2021-11-01 05:24] LABS: Vitamin D 25 Total 40.8 ng/mL (30-100)
[2021-11-01 10:32] LABS: Hepatitis C Ab w Rflx HCV PCR Negative (Negative)
[2021-11-01 10:38] LABS: HBs Antibody, Quant <3.1 mIU/mL (See Note); Hepatitis B Surface Ab Negative (See Note)
[2021-11-01 10:46] LABS: Hepatitis B Surface Ag Negative (Negative)
[2021-11-01 10:47] LABS: C3 Complement 116 mg/dL (81-157); C4 Complement 26 mg/dL (13-39); Kappa Free Light Chain 1.53 mg/dL (0.33-1.94); Lambda Free Light Chain 1.58 mg/dL (0.57-2.63)
[2021-11-01 11:20] LABS: Hep B Core Antibody Negative (Negative)
[2021-11-01 11:43] LABS: HIV-1/2 Ag & Ab Screen Negative (Negative)
[2021-11-01 12:32] LABS: TB Interpretation Negative (Negative); TB2 Ag minus Nil 0.01 IU/mL
[2021-11-01 13:23] LABS: Albumin 62.3 % (55.8-66.1); Total Protein 6.8 g/dL (6.3-8.2)
[2021-11-01 14:11] LABS: Albumin, Urine % 16.2 %; Globulins, Urine % 83.8 %; Immunotyping, Urine (See Note); Total Protein Urine <5 mg/dL (See Note)
[2021-11-01 18:18] LABS: Complement, Total 67 U/mL (30-75)
[2021-11-02 12:06] LABS: Cryoglobulin, S Negative %ppt (Negative)
[2021-11-02 14:19] LABS: 6-Methylmercaptopurine ribosid 7.38 nmol/mL/h (5.04-9.57)
== END 2021-10-29 01:51 | disposition home or self-care (01) ==
LOC: LBO 01:50
PROVIDERS: PCP Family Medicine; Visit Provider Internal Medicine
DX: M25.511 Pain in right shoulder (principal); G89.29 Other chronic pain; M35.00 Sjogren syndrome, unspecified; Z51.81 Encounter for therapeutic drug level monitoring; Z79.899 Other long term (current) drug therapy; Z11.4 Encounter for screening for human immunodeficiency virus [HIV]; Z11.59 Encounter for screening for other viral diseases
CPT/HCPCS: 36415; 80053; 80076; 82306; 82657; 84156; 84166; 86335; 86704; 86706; 86803; 87340; 87389; 81003; 82595; 82607; 82728; 82746; 83540; 83550; 83883; 84165; 84443; 85025; 86160; 86162; 86431; 86480

== ENCOUNTER 2021-10-29 15:12 | Outpatient (CLI) | payer BC, SELFPAY | END 2021-10-29 15:13 | disposition home or self-care (01) | LOC: LBO 15:14 | PROVIDERS: PCP Family Medicine; Visit Provider Internal Medicine ==

== ENCOUNTER 2021-11-01 11:19 | Emergency (ER) | payer BC, SELFPAY ==
[2021-11-01 11:23] VITALS: BP 147/97; PULSE 81; RESP 18; TEMP 36; O2SAT 98
--- NOTE | 2021-11-01 11:45 | RT.EKG_ITS ---
APPROVED REPORT Exam: Resting ECG Reason for Exam: QT serafin Patient Location: E HR:61 bpm ECG Measurements Heart Rate 61 AXIS SC 182 P -23 QRSd 114 QRS -22 QT 420 T -12 QTc 423 Conclusion Sinus rhythm...normal P axis, V-rate 60- 99 Low voltage, extremity leads...all extremity leads <0.5mV sinus rhythm at 61, normal axis, low voltage extremity leads, QTC 423, no STEMI
--- NOTE | 2021-11-01 12:02 | ED.GENADUL_ITS ---
Discharge Plan Disposition Patient Disposition: HOME Condition: Improving Discharge Details Clinical Impression: Low back pain, Right lower quadrant abdominal pain Primary Care Provider: Anthony Samaniego ED Provider: Sherry Mai Home Meds and New Rx's Prescriptions: New prednisone 20 mg tablet 40 mg PO DAILY Qty: 8 0RF Rx Instructions: Please begin taking 11/02/21 cyclobenzaprine 5 mg tablet 5 mg PO TID PRN (Reason: muscle spasm) Qty: 6 0RF Continued Norel AD 4-10-325 mg tablet 1 tab PO Q4H PRN (Reason: cold symptoms) Qty: 30 0RF lactulose 10 GM/15 ML solution 30 g PO BID PRNQty: 500 1RF Rx Instructions: maximum dose is 60 gm (no more than twice/day) gabapentin 300 mg capsule 300 mg PO TID 0RF hydroxychloroquine 200 mg tablet 400 mg PO DAILY 0RF cevimeline 30 mg capsule 1 cap PO TID 0RF cholecalciferol (vitamin D3) 1,250 mcg (50,000 unit) capsule 50,000 unit PO QMONTH 0RF meloxicam [Mobic] 7.5 mg tablet See Rx Instructions .ROUTE .COMPLEX 0RF Label Comments: TAKE 1 TABLET BY MOUTH DAILY Rx Instructions: Take 1 tab once daily Discharge Instructions Instructions: Prednisone (By mouth), Cyclobenzaprine (By mouth), Abdominal Pain (ED), Back Pain (ED) Additional Instructions: Please return immediately to the emergency department if you develop any new or worsening symptoms, if your condition does not improve as expected, or if you become otherwise concerned. It is extremely important that you call soon as possible to make an appointment to be seen in follow-up for this visit by your primary care doctor and your textile colorist dyer as we discussed Referrals: Anthony Samaniego MD [Primary Care Provider] - Discharge Data Discharge Date/Time-TO BE ENTERED AT DEPARTURE: 11/01/21 16:03 Medical Decision Making Ai Morrison is a 61-year-old woman with a history of fibromyalgia, Sjogren's syndrome on Plaquenil presenting to emergency department with right lower quadrant pain. Patient reports that over the past week she has had gradually worsening pain across her lower back radiating down the outside of her right thigh. Patient reports that in the past 24 hours she has also developed right lower quadrant pain, nonradiating. She reports that she also has some bilateral shoulder pain. Patient reports that she had Zoom meeting with her textile colorist dyer last week for shoulder pain and back pain, during which her textile colorist dyer was concerned about possible Sjogren's flare. Patient reports that she is supposed to see her textile colorist dyer in person this week in follow-up. Not currently taking any steroids. She denies any other pain. She she reports chronic unchanged constipation from baseline, had bowel movement this morning. She denies fever, cough, shortness of breath, vomiting, diarrhea, numbness, focal weakness, rash, dysuria. On exam Pt is well and non-toxic appearing. No abdominal TTP, but reports TTP of the right inguinal region with o/w normal exam of the area. Diffuse TTP of the lumbar spine and paraspinals b/l. Benign neuro exam of b/l LEs. + straight leg test on right, - on left. Concern for sciatica vs pathologic fx vs less likely appy, other. Exam/hx at this time is not c/w cauda equina, epidural hematoma, epidural abscess, other cord compression, sepsis. Plan for IV placement, EKG for QT eval, IV fluid hydration, IV morphine, IV Zofran, screening labs, CT abdomen/pelvis, lumbar reconstructions. Will monitor and reassess. Labs reviewed, WBC 5.84, Hgb 12, CRP <0.05, ESR 12. CT shows no acute process per radiology. Concern for likely sciatica as etiology of pain, sjogrens flare may be a factor. Plan for flexeril, prednisone, NSAIDs. Discussed safe use of flexeril with current gabapentin and other OTC meds, importance of outpt f/u with PCP and rheum. I had a discussion with Patient regarding return to emergency department precautions, home care, and importance of outpatient follow-up. Pt verbalizes understanding of the plan and is amenable. Patient discharged to home with clear plan for outpatient follow-up. All questions were answered. Disposition decision was made weighing the risks and benefits of hospitalization versus outpatient treatment, the risk for further decompensation, and the patient's wishes. Medical Records Medical records reviewed: Yes I reviewed the patient's medical records. Imaging Data Radiologic Study: Attestation: I personally reviewed and interpreted this imaging study as follows: Radiologist's impression: Exam(s) CT ABDOMEN ? PELVIS W EXAM: ? CT ABDOMEN ? PELVIS W CLINICAL HISTORY: ? RLQ pain. ? TECHNIQUE:? Imaging Protocol: Axial computed tomography images with coronal and sagittal reformatted images were created and reviewed CONTRAST MATERIAL:? Intravenous: Omnipaque 100cc Oral: None CT CT LUMBAR SPINE RECONS from 11/01/2021 FINDINGS: VISUALIZED LUNG BASES: No nodules nor pleural effusions evident.? Images mildly degraded by motion artifact ABDOMEN: There is no ascites. LIVER: There are no focal hepatic lesions evident.? There is mild prominence of intrahepatic ducts. GALLBLADDER/BILIARY: The gallbladder is again noted be surgically absent.? Mild CBD prominence, most probably related to post cholecystectomy status. CBD measures 10 millimeters at the pancreatic head level. No obvious calculi within the lower CBD. PANCREAS: No evidence of pancreatic mass nor dilatation of the pancreatic duct. 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 SPLEEN: Spleen is not enlarged.? No obvious intrasplenic lesions.? Splenic and portal veins are patent. ADRENALS: There is a 3 x 2 cm unchanged hypodense nodule in the left adrenal gland again noted, unchanged from 2018 and therefore most probably benign. The opposite-right adrenal gland remains unremarkable. KIDNEYS:No cysts evident.? No solid renal masses.? No calculi nor hydronephrosis.. ABDOMINAL AORTA: Abdominal aorta is not enlarged. LYMPH NODES:There is no retroperitoneal nor paraaortic adenopathy. ABDOMINAL WALL: No evidence of significant anterior abdominal wall nor inguinal hernia. GI: There is no evidence of bowel obstruction, free air, nor abscess. PELVIS:? GI: No evidence of appendicitis.There is sigmoid diverticuli. No evidence of obvious acute diverticulitis. Abundant fecal material is noted in the colon at and proximal to the splenic flexure, similar to previous. LYMPH NODES: There is no intrapelvic nor inguinal adenopathy. REPRODUCTIVE: Uterus and adnexal regions appear un remarkable. URINARY BLADDER: No calculi nor obvious masses evident OSSEOUS: Degenerative sub endplate cysts noted in the posterior aspect of L2 vertebral body, slightly increased in size from 2018 but nevertheless benign in appearance. No truly lytic osseous lesions identified IMPRESSION: 1. Gallbladder is again noted be surgically absent. Mild dilatation of the CBD is most probably related to patient's cholecystectomy status. 2. Again noted is a 3 x 2 cm nodule in the left adrenal gland, unchanged from 2018 and therefore probably benign. 3. Sigmoid diverticulosis. No obvious acute diverticulitis. No evidence of appen dicitis. Exam(s) CT LUMBAR SPINE RECONS EXAM: ? CT LUMBAR SPINE RECONS CLINICAL HISTORY:? back pain, h/o sjogrens. ? TECHNIQUE:? Imaging Protocol: Axial computed tomography images with coronal and sagittal reformatted images were created and reviewed FINDINGS: Bones:? There are no fractures, listhesis, nor pars defects. There are no lytic osseous lesions evident.There is degenerative subarticular sub endplate cyst in the posterior inferior aspect of L2 vertebral body which measures 6 x 6 millimeters. Advanced disc space narrowing at L5-S1 level noted..? Also vacuum phenomenon at L4-5 disc but with relatively maintained disc height at this level.? Minimal amount of L3-4 disc space vacuum phenomenon also noted. PARASPINAL SOFT TISSUES: Left adrenal mass measuring approximately 3 x 2 cm, unchanged 2018 and probably benign.? Right adrenal gland unremarkable. IMPRESSION: 1. Mild findings as above.? No fractures.? No listhesis. 2. Stable left adrenal nodule measuring 3 x 2 cm Lab Data Lab results reviewed: Yes I reviewed the patient's lab results. Labs: Laboratory Tests Range/Units 11/01/21 11/01/21 11/01/21 12:15 12:15 12:15 WBC (4.4-10.8) 10^3/uL 5.84 RBC (3.93-5.22) 10^6/uL 3.63 L Hgb (11.2-15.7) g/dL 12.0 Hct (36.0-46.0) % 35.9 L MCV (80-95) fL 98.9 H MCH (27.0-33.0) pg 33.1 H MCHC (32.0-36.0) % 33.4 RDW (11.7-14.6) % 13.0 Plt Count (130-400) 10^3/uL 234 MPV (8.0-11.0) fL 10.1 Immature Gran % 0.2 Neutrophils % 62.7 Lymphocytes % 28.3 Monocytes % 6.2 Eosinophils % 1.9 Basophils % 0.7 Nucleated RBC % % 0 Absolute Neutrophils (1.2-6.7) 10^3/uL 3.67 Absolute Lymphocytes (1.2-3.4) 10^3/uL 1.65 Absolute Monocytes (0.1-0.8) 10^3/uL 0.36 Absolute Eosinophils (0.0-0.7) 10^3/uL 0.11 Absolute Basophils (0.0-0.2) 10^3/uL 0.04 ESR (0-30) mm/hr Sodium (136-145) mmol/L 140 Potassium (3.5-5.1) mmol/L 4.0 Chloride (98-107) mmol/L 105 Carbon Dioxide (21.0-32.0) mmol/L 28.2 Anion Gap (3-11) mmol/L 6.8 BUN (7-18) mg/dL 18 Creatinine (0.55-1.02) mg/dL 1.0 Estimated GFR/1.73 m2 (mL/min/1.73m2) 56.37 Glucose (74-106) mg/dL 92 Calcium (8.5-10.1) mg/dL 9.2 Total Bilirubin (0.2-1.0) mg/dL 0.3 AST (15-37) U/L 14 L ALT (14-59) U/L 18 Alkaline Phosphatase (46-116) U/L 96 C-Reactive Protein (0.0-0.3) mg/dL < 0.05 Total Protein (6.4-8.2) g/dL 7.4 Albumin (3.4-5.0) g/dL 3.8 Lipase (73-393) U/L 47 Urine Color (Yellow) Urine Clarity (Clear) Urine pH (5-8) Ur Specific [place] (1.005-1.025) Urine Protein (Negative) mg/dL Urine Ketones (Negative) mg/dL Urine Blood (Negative) Urine Nitrite (Negative) Urine Bilirubin (Negative) Urine Urobilinogen (Up TO 0.2) EU/dL Ur Leukocyte Esterase (Negative) Urine RBC (0-2) HPF Urine WBC (0-5) HPF Ur Epithelial Cells (Negative) HPF Urine Crystals (Negative) HPF Urine Bacteria (Negative) HPF Urine Casts (Negative) LPF Urine Mucus (Negative) Ur Culture Indicated? Urine Glucose (Negative) mg/dL Range/Units 11/01/21 11/01/21 12:15 12:20 WBC (4.4-10.8) 10^3/uL RBC (3.93-5.22) 10^6/uL Hgb (11.2-15.7) g/dL Hct (36.0-46.0) % MCV (80-95) fL MCH (27.0-33.0) pg MCHC (32.0-36.0) % RDW (11.7-14.6) % Plt Count (130-400) 10^3/uL MPV (8.0-11.0) fL Immature Gran % Neutrophils % Lymphocytes % Monocytes % Eosinophils % Basophils % Nucleated RBC % % Absolute Neutrophils (1.2-6.7) 10^3/uL Absolute Lymphocytes (1.2-3.4) 10^3/uL Absolute Monocytes (0.1-0.8) 10^3/uL Absolute Eosinophils (0.0-0.7) 10^3/uL Absolute Basophils (0.0-0.2) 10^3/uL ESR (0-30) mm/hr 12 Sodium (136-145) mmol/L Potassium (3.5-5.1) mmol/L Chloride (98-107) mmol/L Carbon Dioxide (21.0-32.0) mmol/L Anion Gap (3-11) mmol/L BUN (7-18) mg/dL Creatinine (0.55-1.02) mg/dL Estimated GFR/1.73 m2 (mL/min/1.73m2) Glucose (74-106) mg/dL Calcium (8.5-10.1) mg/dL Total Bilirubin (0.2-1.0) mg/dL AST (15-37) U/L ALT (14-59) U/L Alkaline Phosphatase (46-116) U/L C-Reactive Protein (0.0-0.3) mg/dL Total Protein (6.4-8.2) g/dL Albumin (3.4-5.0) g/dL Lipase (73-393) U/L Urine Color (Yellow) Straw Urine Clarity (Clear) Clear Urine pH (5-8) 6.5 Ur Specific [place] (1.005-1.025) 1.015 Urine Protein (Negative) mg/dL Negative Urine Ketones (Negative) mg/dL Negative Urine Blood (Negative) Trace-intact H Urine Nitrite (Negative) Negative Urine Bilirubin (Negative) Negative Urine Urobilinogen (Up TO 0.2) EU/dL 0.2 Ur Leukocyte Esterase (Negative) Negative Urine RBC (0-2) HPF 0-2 Urine WBC (0-5) HPF Negative Ur Epithelial Cells (Negative) HPF Rare Urine Crystals (Negative) HPF Negative Urine Bacteria (Negative) HPF Negative Urine Casts (Negative) LPF Negative Urine Mucus (Negative) Negative Ur Culture Indicated? No Urine Glucose (Negative) mg/dL Negative ECG Data Attestation: I personally reviewed and interpreted this ECG (s) as follows: Interpretation: EKG shows sinus rhythm at 61, normal axis, low voltage extremity leads, QTC 423, no STEMI HPI General Mode of arrival: ambulatory . Date/Time Provider Initiated Documentation: 11/01/21 11:31 . Limitations to Documentation: no limitations . Information obtained by: patient, RN notes reviewed and old records reviewed . HPI Narrative: Ai Morrison is a 61-year-old woman with a history of fibromyalgia, Sjogren's syndrome on Plaquenil presenting to emergency department with right lower quadrant pain. Patient reports that over the past week she has had gradually worsening pain across her lower back radiating down the outside of her right t high. Patient reports that in the past 24 hours she has also developed right lower quadrant pain, nonradiating. She reports that she also has some bilateral shoulder pain. Patient reports that she had Zoom meeting with her textile colorist dyer last week for shoulder pain and back pain, during which her textile colorist dyer was concerned about possible Sjogren's flare. Patient reports that she is supposed to see her textile colorist dyer in person this week in follow-up. Not currently taking any steroids. She denies any other pain. She she reports chronic unchanged constipation from baseline, had bowel movement this morning. She denies fever, cough, shortness of breath, vomiting, diarrhea, numbness, focal weakness, rash, dysuria. Related Data Home Medications Medication Instructions Recorded Confirmed lactulose 10 gram/15 mL oral 30 g PO BID PRN #500 ml 04/01/15 11/01/21 solution cevimeline 30 mg capsule 1 cap PO TID 10/15/19 11/01/21 cholecalciferol (vitamin D3) 1,250 50,000 unit PO QMONTH cap 10/15/19 11/01/21 mcg (50,000 unit) capsule gabapentin 300 mg capsule 300 mg PO TID 10/15/19 11/01/21 hydroxychloroquine 200 mg tablet 400 mg PO DAILY tab 10/15/19 11/01/21 [id number]-fverkrnrovwdy 4 1 tab PO Q4H PRN #30 tab 06/16/21 06/16/21 mg-10 mg-325 mg tablet (Norel AD) cyclobenzaprine 5 mg tablet 5 mg PO TID PRN #6 tab 11/01/21 meloxicam 7.5 mg tablet (Mobic) See Rx Instructions .ROUTE .COMPLEX 11/01/21 11/01/21 prednisone 20 mg tablet 40 mg PO DAILY #8 tab 11/01/21 Previous Rx's Medication Instructions Recorded inl-kxgjatejkyyiv-gmdsyobdcvrkd 4 1 tab PO Q4H PRN #30 tab 06/16/21 mg-10 mg-325 mg tablet (Norel AD) cyclobenzaprine 5 mg tablet 5 mg PO TID PRN #6 tab 11/01/21 prednisone 20 mg tablet 40 mg PO DAILY #8 tab 11/01/21 Allergies Allergy/AdvReac Type Severity Reaction Status Date / Time gluten AdvReac Severe Severe Verified 11/01/21 11:31 constipation levofloxacin [From Levaquin] AdvReac Severe Contraindic Verified 11/01/21 11:31 ated General Stated Complaint: Abd Prob DIANA: 3 Review of Systems Narrative: Constitutional: denies fevers Eyes: denies eye pain ENT: denies ear pain, dental pain, sore throat Cardiovascular: denies chest pain, edema Respiratory: denies SOB, cough GI: denies vomiting, diarrhea, reports abdominal pain as per HPI, chronic unchanged constipation : denies flank pain, urinary hesitancy, incontinence, dysuria MSK: denies back pain, neck pain, arthralgias, myalgias Skin: denies rash Neuro: denies headaches, numbness including saddle anesthesia, weakness PFSH All Active Problems (Updated 11/01/21 @ 15:48 by Sherry Mai MD) Low back pain (Acute) Right lower quadrant abdominal pain (Acute) Impacted cerumen, right ear (Acute) Bursitis of shoulder, right (Acute) Fibromyalgia (Acute) Morbid obesity (Acute) Sjoegren syndrome (Acute ~06/28/18) Surgical History section X 2 Colonoscopy - IV Sedation (02/06/13) [facility] [place] EGD - IV Sedation (02/06/13) [facility] [place] Social History Smoking/Tobacco Use Status: Never Smoking risk assessment performed?: Yes Alcohol Intake: current Alcohol Intake frequency: holidays/special occasions only Drug use: Never Substance use type: does not use Do you feel safe at home: Yes Do you feel safe in your relationship?: Yes Exam Narrative Exam Narrative: Constitutional: well and zod-kzljl-imbyqxvzi, pleasant, conversing normally HENT: head atraumatic/normocephalic/normal inspection, mucous membranes moist Eyes: conjunctiva normal, sclera normal, pupils 3mm b/l Neck: no stridor, normal ROM, trachea midline Chest: normal inspection Resp: normal work of breathing, speaking in full sentences Cardio: normal rate, normal rhythm GI: abdomen soft, non-tender, non-distended, tenderness along right inguinal crease that Pt reports as reproduces her abdominal pain, also states this is the location of her abdominal pain when area is not palpated, no mass, lymphadenopa thy, or overlying skin changes Back: normal inspection, no rash, diffuse TTP of the lumbar spine and b/l paraspinal area Skin: warm, dry, normal color, no rash Neuro: alert, not altered, grossly non-focal, normal tone, motor 5/5 b/l b/l LEs, normal sensation throughout b/l LEs including saddle region Ext: no edema, no posterior calf TTP, right lateral thigh with mild TTP, no skin changes, no mass, no edema, + straight leg test on right, neg straight leg test on left Psych: normal mood, normal affect, normal behavior Course Vital Signs Vital signs: Vital Signs Temperature 36.0 C L 11/01/21 11:23 Pulse 81 11/01/21 11:23 Respiratory Rate 18 11/01/21 11:23 Blood Pressure 147/97 H 11/01/21 11:23 Pulse Oximetry 98 11/01/21 11:23 Temperature 36.0 C L 11/01/21 11:23 Temperature Source Temporal Artery Scan 11/01/21 11:23 Pulse 81 11/01/21 11:23 Respiratory Rate 18 11/01/21 11:23 Respiratory Effort Non-Labored 11/01/21 11:27 Blood Pressure 147/97 H 11/01/21 11:23 Blood Pressure Position Sitting 11/01/21 11:23 Pulse Oximetry 98 11/01/21 11:23 Oxygen Delivery Method Room Air 11/01/21 11:23 Oxygen Flow Rate 0 11/01/21 11:23 Pain Level 8 11/01/21 11:27 PAWSS Have you Been Recently Intoxicated or Drunk Within the Last 30 days?: No Have you Ever Experienced Previous Episodes of Alcohol Withdrawal?: No Have you ever Experienced Withdrawal Seizures?: No Have you ever Experienced Delirium Tremens(DT)s?: No Have you ever undergone Alcohol Rehabilitation Treatment (i.e, inpt ot outpatient treatment programs)?: No Have you ever Experienced Blackouts?: No Have you ever Combined Alcohol with other Downers within the last 90 days?: No Have you ever Combined Alcohol with any other Substance of Abuse during the last 90 days?: No Positive Blood Alcohol level on Presentation? [PCS.BAL]: No Evidence of Increased Autonomic Activity (i.e. HR>120, tremor, sweating, agitation, nausea)?: No Result: 0
[2021-11-01 12:24] LABS: Abs Immature Grans 0.01 10^3/uL (0.0-0.06); Absolute Basophil Count 0.04 10^3/uL (0.0-0.2); Absolute Eosinophil Count 0.11 10^3/uL (0.0-0.7); Absolute Lymphocyte Count 1.65 10^3/uL (1.2-3.4); Absolute Monocyte Count 0.36 10^3/uL (0.1-0.8); Absolute Neutrophil Count 3.67 10^3/uL (1.2-6.7); Basophils % 0.7; Eosinophils % 1.9; HCT 35.9 % (36.0-46.0); Immature Grans % 0.2; Lymphocytes % 28.3; MCH 33.1 pg (27.0-33.0); MCHC 33.4 % (32.0-36.0); MCV 98.9 fL (80-95); MPV 10.1 fL (8.0-11.0); Monocytes % 6.2; Neutrophils % 62.7; Nucleated RBC 0 %; Platelet Count 234 10^3/uL (130-400); RBC 3.63 10^6/uL (3.93-5.22); RDW-SD 47.2 fL; WBC 5.84 10^3/uL (4.4-10.8)
[2021-11-01] MEDS: MORPHine 4 MG/ML SYR IVP (12:29)
[2021-11-01 12:30] LABS: ESR 12 mm/hr (0-30)
[2021-11-01] MEDS: Ondansetron 4 MG/2 ML VIAL IVP (12:31)
[2021-11-01 12:38] LABS: ALT 18 U/L (14-59); AST 14 U/L (15-37); Albumin 3.8 g/dL (3.4-5.0); Alkaline Phosphatase 96 U/L (46-116); Anion Gap 6.8 mmol/L (3-11); BUN 18 mg/dL (7-18); Bilirubin, Total 0.3 mg/dL (0.2-1.0); C-Reactive Protein < 0.05 mg/dL (0.0-0.3); CO2 28.2 mmol/L (21.0-32.0); Calcium 9.2 mg/dL (8.5-10.1); Chloride 105 mmol/L (98-107); Estimated GFR 56.37 (mL/min/1.73m2); Glucose 92 mg/dL (74-106); Lipase 47 U/L (73-393); Sodium 140 mmol/L (136-145); Total Protein 7.4 g/dL (6.4-8.2)
[2021-11-01 12:40] LABS: Bilirubin Negative (Negative); Blood Trace-intact (Negative); Clarity Clear (Clear); Glucose Negative (Negative); Ketones Negative (Negative); Leukocyte Esterase Negative (Negative); Nitrite Negative (Negative); Specific Gravity 1.015 (1.005-1.025); Urobilinogen 0.2 EU/dL (Up TO 0.2); pH 6.5 (5-8)
[2021-11-01 12:47] LABS: Bacteria Negative HPF (Negative); C & S Indicated? No; Casts Negative LPF (Negative); Crystals Negative HPF (Negative); Epithelial Cells Rare HPF (Negative); Mucus Negative (Negative); RBC 0-2 HPF (0-2); WBC Negative HPF (0-5)
--- NOTE | 2021-11-01 13:40 | NUR.NOTE ---
Pt. to CT with tech. no acute distress noted.Nursing Note:
[2021-11-01 14:17] VITALS: BP 125/69; PULSE 68; RESP 20; TEMP 36.2; O2SAT 97
--- NOTE | 2021-11-01 14:25 | DI.CT_ITS ---
Exam(s) CT ABDOMEN PELVIS W EXAM: CT ABDOMEN PELVIS W CLINICAL HISTORY: RLQ pain. TECHNIQUE: Imaging Protocol: Axial computed tomography images with coronal and sagittal reformatted images were created and reviewed CONTRAST MATERIAL: Intravenous: Omnipaque 100cc Oral: None CT CT LUMBAR SPINE RECONS from 11/01/2021 FINDINGS: VISUALIZED LUNG BASES: No nodules nor pleural effusions evident. Images mildly degraded by motion artifact ABDOMEN: There is no ascites. LIVER: There are no focal hepatic lesions evident. There is mild prominence of intrahepatic ducts. GALLBLADDER/BILIARY: The gallbladder is again noted be surgically absent. Mild CBD prominence, most probably related to post cholecystectomy status. CBD measures 10 millimeters at the pancreatic head l evel. No obvious calculi within the lower CBD. PANCREAS: No evidence of pancreatic mass nor dilatation of the pancreatic duct. Splenic artery aneury sm again noted near the tail of the pancreas. SPLEEN: Spleen is not enlarged. No obvious intrasplenic lesions. Splenic and portal veins are paten t. ADRENALS: There is a 3 x 2 cm unchanged hypodense nodule in the left adrenal gland again noted, uncha nged from 2018 and therefore most probably benign. The opposite-right adrenal gland remains unremarka ble. KIDNEYS:No cysts evident. No solid renal masses. No calculi nor hydronephrosis.. ABDOMINAL AORTA: Abdominal aorta is not enlarged. LYMPH NODES:There is no retroperitoneal nor paraaortic adenopathy. ABDOMINAL WALL: No evidence of significant anterior abdominal wall nor inguinal hernia. GI: There is no evidence of bowel obstruction, free air, nor abscess. PELVIS: GI: No evidence of appendicitis.There is sigmoid diverticuli. No evidence of obvious acute diverticul itis. Abundant fecal material is noted in the colon at and proximal to the splenic flexure, similar t o previous. LYMPH NODES: There is no intrapelvic nor inguinal adenopathy. REPRODUCTIVE: Uterus and adnexal regions appear un remarkable. URINARY BLADDER: No calculi nor obvious masses evident OSSEOUS: Degenerative sub endplate cysts noted in the posterior aspect of L2 vertebral body, slightly increased in size from 2018 but nevertheless benign in appearance. No truly lytic osseous lesions id entified IMPRESSION: 1. Gallbladder is again noted be surgically absent. Mild dilatation of the CBD is most probably relat ed to patient's cholecystectomy status. 2. Again noted is a 3 x 2 cm nodule in the left adrenal gland, unchanged from 2018 and therefore prob ably benign. 3. Sigmoid diverticulosis. No obvious acute diverticulitis. No evidence of appendicitis. RADIATION DOSE DELIVERED: Total DLP DATA REPOSITORY: All CT scans at this facility are submitted to the National Radiology Data Registry (NRDR) Dose Index Registry (DIR) with the [employer] (ACR). RADIATION OPTIMIZATION: All CT scans at this facility use at least one of these dose optimization te chniques: automated exposure control; mA and/or kV adjustment per patient size (includes targeted exa ms where dose is matched to clinical indication); or iterative reconstruction.
--- NOTE | 2021-11-01 14:25 | DI.CT_ITS ---
Exam(s) CT LUMBAR SPINE RECONS EXAM: CT LUMBAR SPINE RECONS CLINICAL HISTORY: back pain, h/o sjogrens. TECHNIQUE: Imaging Protocol: Axial computed tomography images with coronal and sagittal reformatted images were created and reviewed FINDINGS: Bones: There are no fractures, listhesis, nor pars defects. There are no lytic osseous lesions evide nt.There is degenerative subarticular sub endplate cyst in the posterior inferior aspect of L2 verteb ral body which measures 6 x 6 millimeters. Advanced disc space narrowing at L5-S1 level noted.. Also vacuum phenomenon at L4-5 disc but with re latively maintained disc height at this level. Minimal amount of L3-4 disc space vacuum phenomenon a lso noted. PARASPINAL SOFT TISSUES: Left adrenal mass measuring approximately 3 x 2 cm, unchanged 2018 and proba lobo benign. Right adrenal gland unremarkable. IMPRESSION: 1. Mild findings as above. No fractures. No listhesis. 2. Stable left adrenal nodule measuring 3 x 2 cm 3. RADIATION DOSE DELIVERED: Total DLP DATA REPOSITORY: All CT scans at this facility are submitted to the National Radiology Data Registry (NRDR) Dose Index Registry (DIR) with the [employer] (ACR). RADIATION OPTIMIZATION: All CT scans at this facility use at least one of these dose optimization te chniques: automated exposure control; mA and/or kV adjustment per patient size (includes targeted exa ms where dose is matched to clinical indication); or iterative reconstruction.
[2021-11-01] MEDS: Cyclobenzaprine 10 MG TAB PO (16:02)
[2021-11-01] MEDS: predniSONE 20 MG TAB 40 MG PO (16:02)
== END 2021-11-01 16:03 | disposition home or self-care (01) ==
PROVIDERS: Emergency Provider Student in an Organized Health Care Education/Training Program; PCP Family Medicine
DX: M54.50 Low back pain, unspecified (principal); R10.31 Right lower quadrant pain; M35.00 Sjogren syndrome, unspecified; M25.512 Pain in left shoulder; M25.511 Pain in right shoulder
CPT/HCPCS: 80053; 83690; 85652; 93005; 96374; 96375; 99285; 74177; 81003; 81015; 85025; 86140; 93010; 99284; J2270; J2405; J7512

== ENCOUNTER 2022-02-16 10:24 | Outpatient (REF) | payer BC, SELFPAY ==
[2022-02-17 17:57] LABS: COVID-19 RT-PCR UVMMC Result Positive (Negative)
== END 2022-02-16 10:25 | disposition home or self-care (01) ==
LOC: LBN 10:24
PROVIDERS: PCP Family Medicine; Visit Provider Physician Assistant
DX: Z20.822 Contact with and (suspected) exposure to COVID-19 (principal)
CPT/HCPCS: U0003

== ENCOUNTER 2022-05-13 01:39 | Outpatient (CLI) | payer BC, SELFPAY ==
--- OUTSIDE RECORDS SUMMARY | 2022-05-13 01:44 | XMS_ITS | Encounter Summary ---
:1960 [place] [address] Care Team Providers Name Role Phone Anthony Samaniego MD Primary Care Provider [phone] Reason for Visit Reason Comments Medication Refill Encounter Details Date Type Department Care Team Description 01/13/2022 Refill Rheumatology at [facility] Benny Solano MD [facility] [place] [address] [place] [address] [phone] (Wo rk) Social History Tobacco Use Types Packs/Day Years Used Date Never Smoker Smokeless Tobacco: Never Used Alcohol Use Standard Drinks/Week Comments Yes 1 (1 standard drink = 0.6 oz pure once o r twice a week MAYBE, not alcohol) every week Alcohol Habits Answer Date Recorded How often do you have a drink Not asked containing alcohol? How many drinks containing alcohol do Not asked you have on a typical day when you are drinking? How often do you have six or more Not asked drinks on one occasion? Comment: once or twice a week MAYBE, not 10/26/19 17 every week Sex Assigned at Date Recorded Not on file documented as of this encounter Plan of Treatment Upcoming Encounters Date Type Specialty Care Team Description 06/03/2022 Office Visit Rheumatology Benny Solano MD [facility] [address] [place], [place] [address] (Wo rk) documented as of this encounter Visit Diagnoses Not on filedocumented in this encounter Care Teams Compliance Program Manager Relationship Specialty Start Date End Date Anthony Samaniego MD PCP - General 07/16/14 [address] [place] [address] documented as of this encounter
--- OUTSIDE RECORDS SUMMARY | 2022-05-13 01:44 | XMS_ITS | Encounter Summary ---
:1960 [place] [address] Care Team Providers Name Role Phone Anthony Samaniego MD Primary Care Provider [phone] Encounter Details Date Type Department Care Team Description 11/01/2021 Ancillary Procedure Radiology Library at [place] roxana [place]es [facility] [place] [address] [address] [phone] Social History Tobacco Use Types Packs/Day Years [...] 06/03/2022 Office Visit Rheumatology Benny Solano MD [facility] [address] [place], [place] [address] (Wo rk) documented as of this encounter Procedures Procedure Name Priority Date/Time Associated Diagnosis Comme nts FILM LIBRARY Routine 11/01/2021 12:00 AM Results for this STORAGE ONLY CT EST procedure ar e in ABDOMEN AND PELVIS the resul ts section. documented in this encounter Results Film Library- Storage Only CT Abdomen & Pelvis (11/01/2021 12:00 AM EST) Specimen (Source) Anatomical Location Collection Method / Collectio n Time Received Time / Laterality Volume Narrative REJI - 11/09/2021 8:46 AM EST This exam is auto-finalizing. It's purpo se is for storage only. Anthony Samaniego MD IMG FILM LIBRARY ORDERABLES Performing Organization Address City/State/ZIP Code Phon e Number [place], [place] documented in this encounter Visit Diagnoses Not on filedocumented in this encounter Care Teams Other Sales Support Worker Relationship Specialty Start Date End Date Anthony Samaniego MD PCP - General 07/16/[address] [place] [address] documented as of this encounter
--- OUTSIDE RECORDS SUMMARY | 2022-05-13 01:44 | XMS_ITS | Encounter Summary ---
:1960 Author Organization [facility] [place] [address] Care Team Providers Name Role Phone Anthony Samaniego MD Primary Care Provider [phone] Encounter Details Date Type Department Care Team Description 11/23/2021 Orders Only Rheumatology at [facility] Iva Duran, [facility] [place] [address] Social History Tobacco Use Types Packs/Day Years [...] 06/03/2022 Office Visit Rheumatology Benny Solano MD [facility] [address] [place], [place] [address] (Wo rk) documented as of this encounter Visit Diagnoses Not on filedocumented in this encounter Care Teams Edge Runner Relationship Specialty Start Date End Date Anthony Samaniego MD PCP - General 07/16/[address] [place] [address] documented as of this encounter
--- OUTSIDE RECORDS SUMMARY | 2022-05-13 01:44 | XMS_ITS | Encounter Summary ---
:1960 [place] [address] Care Team Providers Name Role Phone Anthony Samaniego MD Primary Care Provider [phone] Encounter Details Date Type Department Care Team Description 11/01/2021 Ancillary Procedure Radiology Library at [facility] roxana Perales [facility] [address] [address] [phone] Social History Tobacco Use Types Packs/Day Years [...] 06/03/2022 Office Visit Rheumatology Benny Solano MD [facility] [address] [place], [place] [address] (Wo rk) documented as of this encounter Procedures Procedure Name Priority Date/Time Associated Diagnosis Comme nts FILM LIBRARY Routine 11/01/2021 12:05 AM Results for this STORAGE ONLY CT EST procedure ar e in SPINE the results section. documented in this encounter Results Film Library- Storage Only CT Spine (11/01/2021 12:05 AM EST) Specimen (Source) Anatomical Location Collection Method / Collectio n Time Received Time / Laterality Volume Narrative REJI - 11/09/2021 8:47 AM EST This exam is auto-finalizing. It's purpo se is for storage only. Anthony Samaniego MD IMStephanie FILM LIBRARY ORDERABLES Performing Organization Address City/State/ZIP Code Phon e Number [place], [place] documented in this encounter Visit Diagnoses Not on filedocumented in this encounter Care Teams Saddle Tree Stitcher Relationship Specialty Start Date End Date Anthony Samaniego MD PCP - General 07/16/[address] [place] [address] documented as of this encounter
--- OUTSIDE RECORDS SUMMARY | 2022-05-13 01:44 | XMS_ITS | Encounter Summary ---
:1960 Author Organization [place] [address] Care Team Providers Name Role Phone Anthony Samaniego MD Primary Care Provider [phone] Reason for Referral Physical Therapy (Routine) - Authorized Specialty Diagnoses / Procedures Referred By Contact Refer red To Contact Diagnoses Chronic pain of both shoulders Rotator cuff tendinitis, unspecified laterality Chronic bilateral low back pain without sciatic[place] [address] Referral ID Status Reason Start Expiration Visits Visits Date Date Requested Authorized [id number] Authorized Evaluate and 11/26/2021 05/25/2022 12 12 Treat Non PCP Encounter Details Date Type Department Care Team Description 11/26/2021 Office Visit [place]ology [place] [facility] [place], High risk medication use; [facility] Inflammatory arthropathy; [facility] Sjogren's syndrome, with uns pecified organ involvement; [place] [address] [place] [address] Dry eyes; [phone] [place] [address] Vitamin D deficiency; [phone] Dry mouth; (Work) Medication monitoring encounter; [phone] Sicca syndrome; (Fax) Chronic pain of both shoulders; Rotator cuff te ndinitis, unspecified laterality; Chronic bilater al low back pain without sciatica Social History Tobacco Use Types Packs/Day Years [...] on file documented as of this encounter Last Filed Vital Signs Vital Sign Reading Time Taken Comments Blood Pressure 133/85 11/26/2021 10:02 AM EST Pulse 65 11/26/2021 10:02 AM EST Temperature 36.6 ??C (97.8 ??F) 11/26/2021 10:02 AM EST Respiratory Rate - - Oxygen Saturation 100% 11/26/2021 10:02 AM EST Inhaled Oxygen Concentration - - Weight 82.6 kg (182 lb) 11/26/2021 10:02 AM EST Height 157.5 cm (5' 2) 11/26/2021 10:02 AM EST Body Mass Index 33.29 11/26/2021 10:02 AM EST documented in this encounter Progress Notes Benny Solano MD - 11/26/2021 10:30 AM EST Rheumatology Follow-up Note Rheum hx Celiac Dz Sj??gren???s Syndrome + lip BX SS - on HCQ Trialed turmeric Interval Hx: Ai Morrison is a 61 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 Presents with bilateral shoulder pain recent history of acute lower back pain. Acute lower back pain has resolved. Patient still has bilateral persistent hip lower back and shoulder pain. No evidence of synovitis upon 2 months within normal limits reviewed over her phone. She denies any swelling redness or warmth of the joints no increased morning stiffness no lymphadenopathy nausea vomiting diarrhea unexplained weight loss shortness of breath heartburn. 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 Since her visit these are short course of steroids. She has never done physical therapy for the shoulder But she has done physical therapy in the past he believes for the knees. ROS: General (-)fevers, (-)chills, (-)night sweats, (-)wt loss/gain. HEENT (-)vision change, (-)tinnitus, (-)epistaxis, (-)sore throat, (-)bleeding gums, (-)oral ulcers,(-)dry eyes, (-)dry mouth, (-)photo sensitivity, (-)Hair loss, (-)vertigo CVS (-)chest pain, (-)palpitations, (-)pedal edema, (-)PND, (-)orthopnea. Pulm (-)shortness of breath, (-)KAPOOR, (-)wheezes, (-)cough, (-)pleuritic pain GI (-)N/V, (-)abdominal pain, (-)emesis, (-)hematemesis, (-)hematochezia, (- )change in appetite (-)hematuria, (-)dysuria, (-)frequency, MS (-)muscle weakness, (-)paralysis Endo (-)thyroid disorders, (-)diabetes, (-)temperature intolerance. Neuro (-)focal weakness, (-)paresthesias, (-)gait instability. Skin (-)Raynaud's,(-) ulcers Psych (-) mood disorder. PMH: Celiac disease biopsy-proven, follows with GI Right upper quadrant abdominal pain Diverticulosis of the colon Small intestin bacterialal Overgrowth (erythromycin, rifaximin) Anemia Fatigue Chronic arthralgias of knees and hips Anxiety Mood disorders Restless leg syndrome Family history of cerebral aneurysm Status post cholecystectomy Status post Colonic polyp, colonoscopy 2005, repeat 2011 Work up for interstitial cystitis negative in past. Social Hx: Never smoker. 1 drink per week. 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 Family Hx: PGM had RA. Mother had brain aneurysms, from COPD. Also had colon cancer. Sister has vasculitis. Physical exam Patient Vitals for the past 24 hrs: Temp Pulse BP SpO2 11/26/21 1002 36.6 ??C (97.8 ??F) 65 133/85 100 % General: , NAD HEENT: Mucous membranes are moist, no oral mucosal ulcerations, temporal artery non-palpable, No LAd Cardiovascular: RR Lungs: Clear to auscultation bilaterally Abdomen: Soft, non tender, non distended, + bowel sounds, Neuro: Alert and oriented x3. Cranial nerves III through XII grossly intact. - Strength 5/5 throughout, -Sensation to light touch is grossly normal throughout. Skin: (-)ulcers, (-)rash Vascular: Pulses are equal in all extremities. MSK Back: Non tender over the spine and costovertebral angles bilaterally. (-)Ivania-normal SLR Neck: full range of motion. Extremities Shoulders: FROM, non-tender to palpation, pain with active range of motion no pain with passive range of motion, positive supraspinatus subscapularis and infraspinatus provocative test with supraspinatus being the most positive provocatively Elbows:FROM, (-)pain, (-)nodules Wrists: FROM, no swelling, non-tender Hands: No synovitis, no MCP compression tenderness, full claw and fist Hips: FROM, (-) Ivania Knees: (-)effusions, non-tender ROM Ankles: FROM, non-tender, no swelling. Bilaterla tibial TTP Feet: no MTP compression tenderness ?? Spine, shoulders, elbows, wrists, fingers, hips, knees and ankles; no active swelling, tenderness orsynovitis at any joint. No soft tissue nodules. . 18/18 FM tender points. Sensitive to gentle squeeze in arms, forearms. Narrow oropharynx B/L MTP compression tenderness Labs/Studies: 10/25/2017 CBC WNL, Elevated MCV, around 96 ESR 31 CMP WNL alkaline phosphatase 120(H) AME screen, RF negative in December 2015 SSA antibody negative in September 2017 anti-mitochondrial antibody negative in 2010. Lyme antibody, urine dipstick negative 11/15/2017 AME, C3, C4, CCP, dsDNA, ESTRELLA, RF, CRP negative/WNL CRP 8.9 Urine analysis with moderate leukocytes, WBC 6 (0-5) CBC with differential, CMP Alkaline phosphatase 107 (40-104) Folic acid vitamin B12 AME (ESTRELLA) [employer] PUMPER 0.9 dsDNA CCP Rx C3-C4 SPEP TSH negative/within normal limits Vitamin D 32 (30-100) X-ray of the knees bilateral knee joint osteoarthropathy with medial joint space narrowing and marginal osteophyte formation. Urine analysis negative for protein, blood leukocytes moderate 6 WBC. . Cultures showed mixed stephan 06/18/2018 minor salivary gland biopsy (outside hospital) Salivary gland with lymphocyte aggregates, consistent with Sjogren's syndrome (focus score of 4) Comment Findings are that of serous mucinous minor salivary gland with both foci of lymphocytic aggregates with greater than 50 lymphocytes in each aggregate. This meets the quantification criteria for Sjogren's syndrome on salivary gland biopsy. 08/14/2018 CT abdomen pelvis with oral and IV contrast at [facility] Oral contrast seen in the stomach through distal small bowel. The terminal ileum and colon are not opacified with oral contrast and are suboptimally evaluated. There is increased stool seen throughout the colon. Diverticula are again noted in the lower descending and sigmoid regions. No small bowel dilatation or fold thickening. Lung bases are clear Liver spleen pancreas and right adrenal are unremarkable. Status post cholecystectomy. There is a stable low-density left adrenal nodule, consistent with adenoma Bladder, uterus and ovaries are unremarkable Impression increased stool. No acute inflammatory changes identified. 10/24/18 ESR 26, CRP 2.1 Normal bicarbonate, creatinine(no evidence of RTA) Urine analysis negative for protein, blood, trace leukocytes Antimitochondrial antibody, anti-smooth muscle antibody negative Alkaline phosphatase 120, normal LFTs otherwise vitamin D level 30 Impression/recommendations: Ai Morrison is a 61 y.o. 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 She is here for follow up fatigue, arthralgias. 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 To give it some rest increase activity -Discussed possibly PMR but no symptoms of GCA-inflammatory markers within normal limits less likely Lower back pain discussed MRI if symptoms do not improve after PT-recommend treat your own back by Aman Chand Chronic pain fibromyalgia we will increase her gabapentin to 900 mg 3 times daily over the next 3 weeks patient given recommendations -Recommend over the counter Lidoderm patch for the back pain Highly recommend PT Leukopenia stable Sjogren's syndrome(SS) Serologies negative. Positive minor salivary gland biopsy for Sjogren's in May 2018 Sj??gren???s Syndrome- uncelar if worsening arthralgia arthritis -discussed adding MTX Dry eyes - seeing ophthomlogy Continue conservative measures including preservative-free artificial tears, flaxseed oil, Frequent sips of water, Biotene mouthwash/spray, prescription toothpaste. Cont cevimeline 30 mg tid (patient can start with once or twice and see how she does) discussed about the side effects. Known history of delayed gastric emptying/SIBO, Elevated alkaline phosphatase. Negative antimitochondrial antibody, anti-smooth muscle antibody (association of primary biliary cholangitis with Sjogren's).- Delayed gastric emptying. Celiac disease.No evidence of dysphagia. Gastric emptying may be delayed as a result of autonomic dysfunction. Last labs her most recent ER visit requested HCQ - No SE/AE- u2d - eye exam Monitoring Plaquenil, hydroxychloroquine (HCQ)-adverse effects/side effects (AE/SE) Patient is aware of the the side effects of hydroxychloroquine to include mild increased risk for infection, cytopenias, ocular toxicity, cardiomyopathy, and myopathy. The patient will make me aware ofany planned surgeries so hold parameters can be identified. The patient is aware to complete labs and eye examinations as requested. Dicussed high risk medication Benefits, risks and potential side effects of Methotrexate were discussed including fatigue, mouth sores, nausea, hair thinning, liver and bone marrow effects requiring periodic blood work. A rare allergic pulmonary reaction can also take place. If appropriate, avoidance of was discussed as m ethotrexate can cause anomalies or loss. The patient was advised to use effective methods of contraception while taking methotrexate, limit alcohol intake and hold medication for antibiotictherapy for an infection. The patient is aware to complete labs as requested, seek care for infection/febrile episodes and will discuss plans for surgery and with me. Discussed rituxan and risk of infection long half life and risk with covid Orders Placed This Encounter Procedures ??? CBC (with Diff) ??? Creatinine ??? Hepatic Function Panel ??? CRP, acute inflammation ??? Sedimentation rate ??? Referral to Physical Therapy Return in about 6 weeks (around 01/07/2022). > 60 minutes spent in total documented in this encounter Plan of Treatment Upcoming Encounters Date Type Specialty Care Team Description 06/03/2022 Office Visit Rheumatology Benny Solnao MD [facility] [address], [place] [address] (Wo rk) Scheduled Orders Name Type Priority Associated Diagnoses Order S chedule CBC (with Diff) Lab Routine High risk medica tion use Every 3 months for 4 Inflammatory art hropathy Occurrences starting Sjogren's syndrome, with 12/2021 until unspecified organ 11/26/2022 involvement Dry eyes Vitamin D defici ency Dry mouth Medication monitoring encounter Sicca syndrome Chronic pain of both shoulders Rotator cuff tendinitis, unspecified late rality Chronic bilateral low back pain without sciatica Creatinine Lab Routine High risk medica tion use Every three months for Inflammatory art hropathy 4 Occurrences starting Sjogren's syndrome, with 12/2021 until unspecified organ 11/26/2022 involvement Dry eyes Vitamin D defici ency Dry mouth Medication monitoring encounter Sicca syndrome Chronic pain of both shoulders Rotator cuff tendinitis, unspecified late rality Chronic bilateral low back pain without sciatica Hepatic Function Panel Lab Routine High risk medication use Every 3 months for 4 Inflammatory art hropathy Occurrences starting Sjogren's syndrome, with 12/2021 until unspecified organ 11/26/2022 involvement Dry eyes Vitamin D defici ency Dry mouth Medication monitoring encounter Sicca syndrome Chronic pain of both shoulders Rotator cuff tendinitis, unspecified late rality Chronic bilateral low back pain without sciatica CRP, acute inflammation Lab Routine High ris k medication use Every three months for Inflammatory art hropathy 4 Occurrences starting Sjogren's syndrome, with 12/2021 until unspecified organ 11/26/2022 involvement Dry eyes Vitamin D defici ency Dry mouth Medication monitoring encounter Sicca syndrome Chronic pain of both shoulders Rotator cuff tendinitis, unspecified late rality Chronic bilateral low back pain without sciatica Sedimentation rate Lab Routine High risk med ication use Every three months for Inflammatory art hropathy 4 Occurrences starting Sjogren's syndrome, with 12/2021 until unspecified organ 11/26/2022 involvement Dry eyes Vitamin D defici ency Dry mouth Medication monitoring encounter Sicca syndrome Chronic pain of both shoulders Rotator cuff tendinitis, unspecified late rality Chronic bilateral low back pain without sciatica Scheduled Referrals Name Type Priority Associated Diagnoses Order S chedule Referral to Outpatient Referral Routine Chronic pain of both Ordered: Physical Therapy shoulders 11/26/2021 Rotator cuff tendinitis, unspecified laterality Chronic bilateral low back pain without sciatica documented as of this encounter Visit Diagnoses Diagnosis High risk medication use Encounter for long-term (current) use of other medications Inflammatory arthropathy Arthropathy, unspecified, site unspecifi ed Sjogren's syndrome, with unspecified org an involvement Dry eyes Tear film insufficiency, unspecified Vitamin D deficiency Unspecified vitamin D deficiency Dry mouth Disturbance of salivary secretion Medication monitoring encounter Encounter for therapeutic drug monitorin g Sicca syndrome Chronic pain of both shoulders Pain in joint, shoulder region Rotator cuff tendinitis, unspecified lat erality Chronic bilateral low back pain without sciatica documented in this encounter Care Teams Sales Service Professional Relationship Specialty Start Date End Date Anthony Samaniego MD PCP - General 07/16/[address] [place] [address] documented as of this encounter
--- OUTSIDE RECORDS SUMMARY | 2022-05-13 01:44 | XMS_ITS | Encounter Summary ---
:1960 Author Organization [facility] [place] [address] Care Team Providers Name Role Phone Anthony Samaniego MD Primary Care Provider [phone] Reason for Visit Reason Comments Medication Refill Encounter Details Date Type Department Care Team Description 02/23/2022 Refill Rheumatology at [facility] Benny Solano MD High risk medication use; [facility] Inflammatory arthropathy; [place] [address] Vitamin D deficiency; [phone] [place], [place] [address] Dry eyes; [phone] (Wo rk) Dry mouth Social History Tobacco Use Types Packs/Day Years [...] on file documented as of this encounter Miscellaneous Notes Telephone Encounter - Precious Holder LPN - 02/24/2022 9:39 AM EDT Requested Prescriptions Pending Prescriptions Disp Refills ??? hydrOXYchloroQUINE (Plaquenil) 200 mg Tablet [Pharmacy Med Name: HYDROXYCHLOROQUINE TABS 200MG] 60 tablet 11 Sig: TAKE 2 TABLETS DAILY Last office visit: 10/25/2021 follow up tomorrow Last refill: 11/26/2021 documented in this encounter Plan of Treatment Upcoming Encounters Date Type Specialty Care Team Description 06/03/2022 Office Visit Rheumatology Benny Solano MD [facility] [address] [place] [address] (Wo rk) documented as of this encounter Visit Diagnoses Diagnosis High risk medication use Encounter for long-term (current) use of other medications Inflammatory arthropathy Arthropathy, unspecified, site unspecifi ed Vitamin D deficiency Unspecified vitamin D deficiency Dry eyes Tear film insufficiency, unspecified Dry mouth Disturbance of salivary secretion documented in this encounter Care Teams Transfer Car Operator Drier Relationship Specialty Start Date End Date Anthony Samaniego MD PCP - General 07/16/[address] [place] [address] documented as of this encounter
--- OUTSIDE RECORDS SUMMARY | 2022-05-13 01:44 | XMS_ITS | Clinical Summary ---
:1960 Author Organization [place] [address] Care Team Providers Name Role Phone Anthony Samaniego MD Primary Care Provider [phone] Allergies Active Allergy Reactions Severity Noted Date Comments Gluten Other (See Comments) 06/28/2012 constip ation Levofloxacin 10/26/2016 Medications Medication Sig Dispensed Refills Start Date End Date Status DOCUSATE CALCIUM (STOOL Take by mouth 0 Active SOFTENER ORAL) as needed. PREVIDENT 5000 DRY MOUTH nightly. 0 11/15/2018 Active 1.1 % Gel cholecalciferol, Vitamin Take 1 capsule 12 capsule 0 1 Active D3, 1,250 mcg (50,000 by mouth once unit) monthly CapsuleIndications: High risk medication use, Inflammatory arthropathy, Dry eyes, Dry mouth cyclobenzaprine TAKE 1 TABLET 0 11/01/2021 Active (Flexeril) 5 mg Tablet BY MOUTH THREE TIMES DAILY NEEDED FOR MUSCLE SPASM cevimeline (EVOXAC) 30 TAKE 1 CAPSULE 90 capsule 11 01/19/2022 Active mg Capsule THREE TIMES A DAY hydrOXYchloroQUINE TAKE 2 TABLETS 60 tablet 5 02/25/2022 Active (Plaquenil) 200 mg DAILY TabletIndications: High risk medication use, Inflammatory arthropathy, Vitamin D deficiency, Dry eyes, Dry mouth ibuprofen (Advil) 800 mg TAKE 1 TABLET 60 tablet 3 03/10/2022 Active TabletIndications: TWICE A DAY Chronic pain of both WITH MEALS shoulders, Rotator cuff NEEDED FOR tendinitis, unspecified SHOULDER PAIN laterality, Chronic bilateral low back pain without sciatica gabapentin (Neurontin) TAKE 3 270 capsule 6 03/10/2022 Active 300 mg CAPSULES THREE CapsuleIndications: TIMES A DAY Sjogren's syndrome, with unspecified organ involvement, Dry eyes, Sicca syndrome Active Problems Problem Noted Date Excessive skin and subcutaneous tissue 05/30/2021 Sjogren's syndrome 08/22/2018 Celiac disease/sprue 08/26/2015 Chronic constipation 08/26/2015 Encounters Date Type Specialty Care Team Description 03/08/2022 Refill Rheumatology Benny Solano MD Chronic p ain of both shoulders; Rotator cuff te ndinitis, unspecified laterality; Chronic bilater al low back pain without sciatica; Sjogren's syndr ome, with unspecified organ involvement; Dry eyes; Sicca syndrome 02/23/2022 Refill Rheumatology Benny Solano MD High risk medication use; Inflammatory ar thropathy; Vitamin D defic iency; Dry eyes; Dry mouth from Last 3 Months Immunizations Name Administration Dates Next Due Td, adult 01/02/2006 Family History Medical History Relation Comments Colorectal Cancer Maternal Aunt Colorectal Cancer Mother Relation Status Comments Maternal Aunt Mother Social History Tobacco Use Types Packs/Day Years [...] Assigned at Date Recorded Not on file Last Filed Vital Signs Vital Sign Reading Time Taken Comments Blood Pressure 133/85 11/26/2021 10:02 AM EST Pulse 65 11/26/2021 10:02 AM EST Temperature 36.6 ??C (97.8 ??F) 11/26/2021 10:02 AM EST Respiratory Rate 16 10/26/2016 12:40 PM EST Oxygen Saturation 100% 11/26/2021 10:02 AM EST Inhaled Oxygen Concentration - - Weight 82.6 kg (182 lb) 11/26/2021 10:02 AM EST Height 157.5 cm (5' 2) 11/26/2021 10:02 AM EST Body Mass Index 33.29 11/26/2021 10:02 AM EST Plan of Treatment Upcoming Encounters Date Type Specialty Care Team Description 06/03/2022 Office Visit Rheumatology Benny Solano MD [facility] [place], [place] [address] (Wo rk) Health Maintenance Due Date Last Done Comments Covid-19 Vaccine (#1) 01/08/1965 HIV screen 01/08/1978 Hepatitis C Screening 01/08/1978 Lipid Screening 01/08/1978 Tdap adult 01/08/1979 HPV test 01/08/1990 PAP Smear 01/08/1990 Breast Cancer Share Decision 2000 Needed Breast Cancer screening 01/08/2010 Zoster vaccine (1 of 2) 01/08/2010 Advance Directive 01/08/2015 Tetanus vaccine 01/03/2016 01/02/2006 Diabetes Screening (HgbA1C or 01/23/2022 01/23/2019, 2018, Glucose) 08/06/2018, Additional history exists Influenza (Flu) vaccine (1 of 1 - 05/26/2022 Influenza standard series) Colonoscopy 10/26/2026 10/26/2016, 10/26/2016, 02/06/2013, Additional history exists Insurance Payer Benefit Plan Subscriber ID Effective Dates Phone Address Type / Group [facility] [id number] 2013-Renuka [phone] [address] [facility] [address] [facility] [place] [phone] (Work) Care Teams Install Technician Relationship Specialty Start Date End Date Anthony Samaniego MD PCP - General 07/16/[address] [place], [place] [address]
--- OUTSIDE RECORDS SUMMARY | 2022-05-13 01:44 | XMS_ITS | Encounter Summary ---
:1960 Author Organization [facility] [place] [address] Care Team Providers Name Role Phone Anthony Samaniego MD Primary Care Provider Reason for Visit Reason Comments Medication Refill Encounter Details Date Type Department Care Team Description 03/08/2022 Refill Rheumatology at [facility] Benny Solano MD Chronic pain of both shoulders; [facility] Rotator cuff tendinitis, uns pecified laterality; [place] [address] Dr Chronic bilateral low back pain without sciatica; [phone] [place], [place] [address] Sjogren's syndrome, with unspecified org an involvement; [phone] (Wo rk) Dry eyes; Sicca syn drome Social History Tobacco Use Types Packs/Day Years [...] Office Visit Rheumatology Benny Solano MD [facility] [place], [place] [address] (Wo rk) documented as of this encounter Visit Diagnoses Diagnosis Chronic pain of both shoulders Pain in joint, shoulder region Rotator cuff tendinitis, unspecified lat erality Chronic bilateral low back pain without sciatica Sjogren's syndrome, with unspecified org an involvement Dry eyes Tear film insufficiency, unspecified Sicca syndrome documented in this encounter Care Teams Pasteurizer Relationship Specialty Start Date End Date Anthony Samaniego MD PCP - General 07/16/[address] [place] [address] documented as of this encounter
--- OUTSIDE RECORDS SUMMARY | 2022-05-13 01:44 | XMS_ITS | Encounter Summary ---
:1960 Author Organization [facility] [place] [address] Care Team Providers Name Role Phone Anthony Samaniego MD Primary Care Provider [phone] Reason for Visit Reason Onset Date Comments Medication Refill 01/19/2022 Encounter Details Date Type Department Care Team Description 01/19/2022 Refill Rheumatology at [facility] Benny Solano [place] [address] [place] [address] [phone] (Wo rk) Social History Tobacco Use Types [...] 06/03/2022 Office Visit Rheumatology Benny Solano MD [facility] er [address] [place], [place] [address] (Wo rk) documented as of this encounter Visit Diagnoses Not on filedocumented in this encounter Care Teams Manager Medical Writing Relationship Specialty Start Date End Date Anthony Samaniego MD PCP - General 07/16/[address] [place] [address] documented as of this encounter
--- OUTSIDE RECORDS SUMMARY | 2022-05-13 01:44 | XMS_ITS | Encounter Summary ---
:1960 Author Organization [facility] [place] [address] Care Team Providers Name Role Phone Anthony Samaniego MD Primary Care Provider [phone] Reason for Visit Reason Onset Date Comments Medication Refill 11/24/2021 Encounter Details Date Type Department Care Team Description 11/24/2021 Refill Rheumatology at [facility] Benny Solano MD Dry eyes; [facility] Sjogren's syndrome, with uns pecified organ involvement; [place] [address] Sicca syndrome [phone] [place], [place] [address] (Wo rk) Social History Tobacco Use Types [...] 06/03/2022 Office Visit Rheumatology Benny Solano MD [facility] er [address] [place], [place] [address] (Wo rk) documented as of this encounter Visit Diagnoses Diagnosis Dry eyes Tear film insufficiency, unspecified Sjogren's syndrome, with unspecified org an involvement Sicca syndrome documented in this encounter Care Teams Tenderizer Tender Relationship Specialty Start Date End Date Anthony Samaniego MD PCP - General 07/16/[address] [place] [address] documented as of this encounter
--- OUTSIDE RECORDS SUMMARY | 2022-05-13 01:44 | XMS_ITS | Encounter Summary ---
:1960 Author Organization [facility] [place] [address] Care Team Providers Name Role Phone Anthony Samaniego MD Primary Care Provider [phone] Reason for Visit Reason Onset Date Comments Medication Refill 11/25/2021 Encounter Details Date Type Department Care Team Description 11/25/2021 Refill Rheumatology at [facility] Graciela Torres RN High risk medication use; [facility] Joshua lizarraga Inflammatory arthropathy; [place] [address] Vitamin D deficiency; [phone] Dry eyes; Dry mouth Social History Tobacco Use Types [...] 06/03/2022 Office Visit Rheumatology Benny Solano MD [facility] [address] [place], [place] [address] (Wo rk) documented as of this encounter Visit Diagnoses Diagnosis High risk medication use Encounter for long-term (current) use of other medications Inflammatory arthropathy Arthropathy, unspecified, site unspecifi ed Vitamin D deficiency Unspecified vitamin D deficiency Dry eyes Tear film insufficiency, unspecified Dry mouth Disturbance of salivary secretion documented in this encounter Care Teams Purchasing Specialist Relationship Specialty Start Date End Date Anthony Samaniego MD PCP - General 07/16/[address] [place] [address] documented as of this encounter
--- OUTSIDE RECORDS SUMMARY | 2022-05-13 01:45 | XMS_ITS | Encounter Summary ---
:1960 [place] [address] Care Team Providers Name Role Phone Anthony Samaniego MD Primary Care Provider [phone] Encounter Details Date Type Department Care Team Description 09/29/2021 Ancillary Procedure Radiology Library at [facility] roxaan Perales [facility] [address] [id number] [phone] Social History Tobacco Use Types Packs/Day Years [...] Solano MD [facility] [address] [place], [place] [address] (Wo rk) documented as of this encounter Procedures Procedure Name Priority Date/Time Associated Diagnosis Comme nts FILM LIBRARY Routine 09/29/2021 1:38 PM Results f or this STORAGE ONLY DX EST procedure ar e in SHOULDER the results section. documented in this encounter Results Film Library- Storage Only DX Shoulder (09/29/2021 1:38 PM EST) Specimen (Source) Anatomical Location Collection Method / Collectio n Time Received Time / Laterality Volume Narrative REJI - 09/29/2021 1:38 PM EST This exam is auto-finalizing. It's purpo se is for storage only. Anthony Samaniego MD IMStephanie FILM LIBRARY ORDERABLES Performing Organization Address City/State/ZIP Code Phon e Number [place], [place] documented in this encounter Visit Diagnoses Not on filedocumented in this encounter Care Teams Sales Service Professional Relationship Specialty Start Date End Date Anthony Samaniego MD PCP - General 07/16/[address] [place] [address] documented as of this encounter
--- OUTSIDE RECORDS SUMMARY | 2022-05-13 01:45 | XMS_ITS | Encounter Summary ---
:1960 Author Organization [facility] [place] [address] Care Team Providers Name Role Phone Anthony Samaniego MD Primary Care Provider [phone] Reason for Visit Reason Comments Medication Refill Encounter Details Date Type Department Care Team Description 01/25/2021 Refill Rheumatology at [facility] Benny Solano MD Dry eyes; [facility] Sjogren's syndrome, with uns pecified organ involvement; [place] [address] Sicca syndrome [phone] [place], [place] [address] (Wo rk) Social History Tobacco [...] 06/03/2022 Office Visit Rheumatology Benny Solano MD [facility] er [place], [place] [address] (Wo rk) documented as of this encounter Visit Diagnoses Diagnosis Dry eyes Tear film insufficiency, unspecified Sjogren's syndrome, with unspecified org an involvement Sicca syndrome documented in this encounter Care Teams Brick Or Block Maker Relationship Specialty Start Date End Date Anthony Samaniego MD PCP - General 07/16/[address] [place] [address] documented as of this encounter
--- OUTSIDE RECORDS SUMMARY | 2022-05-13 01:45 | XMS_ITS | Encounter Summary ---
:1960 Author Organization [facility] [place] [address] Care Team Providers Name Role Phone Anthony Samaniego MD Primary Care Provider [phone] Encounter Details Date Type Department Care Team Description 08/03/2021 Orders Only Rheumatology at [facility] Benny Solano, High risk medication use; [facility] Inflammatory arthropathy; [facility] Vitamin D deficiency; [place] [address] Dry eyes; [phone] [place], [place] [address] Dry mouth Social History Tobacco Use Types [...] 06/03/2022 Office Visit Rheumatology Benny Solano MD [facility] er [address] [place], [place] [address] (Wo rk) documented as of this encounter Visit Diagnoses Diagnosis High risk medication use Encounter for long-term (current) use of other medications Inflammatory arthropathy Arthropathy, unspecified, site unspecifi ed Vitamin D deficiency Unspecified vitamin D deficiency Dry eyes Tear film insufficiency, unspecified Dry mouth Disturbance of salivary secretion documented in this encounter Care Teams Conveyor Tender Concrete Mixing Plant Relationship Specialty Start Date End Date Anthony Samaniego MD PCP - General 07/16/[address] [place] [address] documented as of this encounter
--- OUTSIDE RECORDS SUMMARY | 2022-05-13 01:45 | XMS_ITS | Encounter Summary ---
:1960 Author Organization [facility] [place] [address] Care Team Providers Name Role Phone Anthony Samaniego MD Primary Care Provider [phone] Reason for Visit Reason Onset Date Comments Medication Refill 12/19/2020 Encounter Details Date Type Department Care Team Description 12/19/2020 Refill Rheumatology at [facility] Benny Solano MD High risk medication use; [facility] Inflammatory arthropathy; [place] [address] Dry eyes; [phone] [place], [place] [address] Dry mouth [phone] (Wo rk) Social History Tobacco Use Types [...] 06/03/2022 Office Visit Rheumatology Benny Solano MD [facility] [place], [place] [address] (Wo rk) documented as of this encounter Visit Diagnoses Diagnosis High risk medication use Encounter for long-term (current) use of other medications Inflammatory arthropathy Arthropathy, unspecified, site unspecifi ed Dry eyes Tear film insufficiency, unspecified Dry mouth Disturbance of salivary secretion documented in this encounter Care Teams Corporate Travel Manager Relationship Specialty Start Date End Date Anthony Samaniego MD PCP - General 07/16/[address] [place] [address] [address] [place] [address] documented as of this encounter
--- OUTSIDE RECORDS SUMMARY | 2022-05-13 01:45 | XMS_ITS | Encounter Summary ---
:1960 Author Organization [facility] [place] [address] Care Team Providers Name Role Phone Anthony Samaniego MD Primary Care Provider [phone] Reason for Visit Reason Onset Date Comments Medication Refill 08/01/2021 Encounter Details Date Type Department Care Team Description 08/01/2021 Refill Rheumatology at [facility] Benny Solano MD High risk medication use; [facility] Inflammatory arthropathy; [place] [address] Vitamin D deficiency; [phone] [place], [place] [address] Dry eyes; [phone] (Wo rk) Dry mouth Social History Tobacco [...] this encounter Miscellaneous Notes Telephone Encounter - Anamaria Henley - 08/17/2021 1:37 PM EST Spoke with pt, she will call back to schedule F/U Telephone Encounter - Precious Holder LPN - 08/02/2021 2:10 PM EST Requested Prescriptions Pending Prescriptions Disp Refills ??? hydrOXYchloroQUINE (Plaquenil) 200 mg Tablet 60 tablet 1 Last office visit: 06/28/2021 no future appt's scheduled Last refill: 06/04/2021 Labs: 06/29/2021 documented in this encounter Plan of Treatment Upcoming Encounters Date Type Specialty Care Team Description 06/03/2022 Office Visit Rheumatology Benny Solano MD [facility] [address], [place] [address] (Wo rk) documented as of this encounter Visit Diagnoses Diagnosis High risk medication use Encounter for long-term (current) use of other medications Inflammatory arthropathy Arthropathy, unspecified, site unspecifi ed Vitamin D deficiency Unspecified vitamin D deficiency Dry eyes Tear film insufficiency, unspecified Dry mouth Disturbance of salivary secretion documented in this encounter Care Teams Upsetting Machine Operator Relationship Specialty Start Date End Date Anthony Samaniego MD PCP - General 07/16/[address] [place] [address] documented as of this encounter
--- OUTSIDE RECORDS SUMMARY | 2022-05-13 01:45 | XMS_ITS | Encounter Summary ---
:1960 Author Organization [facility] [place] [address] Care Team Providers Name Role Phone Anthony Samaniego MD Primary Care Provider [phone] Encounter Details Date Type Department Care Team Description 11/19/2020 Telephone Rheumatology [place] [facility] [place] [address] Social History Tobacco Use Types Packs/Day [...] this encounter Miscellaneous Notes Telephone Encounter - Fabiola He - 11/19/2020 8:30 AM EST Spoke with patient to try and sched a FUV with Dr. Solano - pt interested to do in person appt but needs to review work sched as Dr. Solano only sees in person on / - pt stated she'll call back later today documented in this encounter Plan of Treatment Upcoming Encounters Date Type Specialty Care Team Description 06/03/2022 Office Visit Rheumatology Benny Solano MD [facility] [address] [place], [place] [address] (Wo rk) documented as of this encounter Visit Diagnoses Not on filedocumented in this encounter Care Teams Child And Family Counselor Relationship Specialty Start Date End Date Anthony Samaniego MD PCP - General 07/16/[address] [place] [address] documented as of this encounter
--- OUTSIDE RECORDS SUMMARY | 2022-05-13 01:45 | XMS_ITS | Encounter Summary ---
:1960 [place] [address] Care Team Providers Name Role Phone Anthony Samaniego MD Primary Care Provider [phone] Reason for Visit Reason Comments Medication Refill Encounter Details Date Type Department Care Team Description 10/06/2021 Refill [place]ology [place] [facility] Julio Cesar Muñoz PA [facility] [place] [address] RHEUMATOLOGY [phone] [place], [place] [address] (Wo rk) Social History Tobacco [...] Office Visit Rheumatology Benny Solano MD [facility] [address] [place], [place] [address] (Wo rk) documented as of this encounter Visit Diagnoses Not on filedocumented in this encounter Care Teams Range Manager Relationship Specialty Start Date End Date Anthony Samaniego MD PCP - General 07/16/14 [address] [place] [address] documented as of this encounter
--- OUTSIDE RECORDS SUMMARY | 2022-05-13 01:45 | XMS_ITS | Encounter Summary ---
:1960 Author Organization [facility] [place] [address] Care Team Providers Name Role Phone Anthony Samaniego MD Primary Care Provider [phone] Encounter Details Date Type Department Care Team Description 05/28/2021 Office Visit Plastic Surgery at [facility] Exce ssive skin and [facility] subcutaneous tissue Critical [facility] [address] [place] PLASTIC SURGERY [address] [place] [address] [phone] Social History Tobacco Use Types Packs/Day Years [...] Sign Reading Time Taken Comments Blood Pressure - - Pulse - - Temperature - - Respiratory Rate - - Oxygen Saturation - - Inhaled Oxygen Concentration - - Weight 81.2 kg (179 lb) 05/28/2021 8:50 AM EDT Height 157.5 cm (5' 2) 05/28/2021 8:50 AM EDT Body Mass Index 32.74 05/28/2021 8:50 AM EDT documented in this encounter Progress Notes Mercedez Keys Leatha - 05/28/2021 9:00 AM EDT Plastic Surgery Consultation Note Lesa Mcgovern MD. PCP: Anthony Samaniego MD [place]: No primary care provider on file. CC: Excessive arm tissue HPI: Ai Morrison is a 61 y.o. female here in consultation for excessive arm tissue bilaterally. 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 She states that despite exercising and having good muscle tone, she continues to have excess skin in her upper arms. She finds that it is uncomfortable with certain activities. She is presenting to discuss brachioplasty. She has never before had procedures on her upper extremities. Her history is significant for celiac dz and Sjogren's. She denies nicotine use. She denies difficulty with anesthesia in the past Past Medical History: Diagnosis Date ??? Celiac disease ??? Celiac disease ??? Chronic constipation ??? Fibromyalgia Past Surgical History: Procedure Laterality Date ??? OVARIAN CYST REMOVAL Right ??? PRO COLONOSCOPY, DIAGNOSTIC 02/06/2013 COLONOSCOPY, DIAGNOSTIC performed by Keyon Cantu MD at [facility] ??? PRO COLONOSCOPY, DIAGNOSTIC N/A 10/26/2016 COLONOSCOPY, DIAGNOSTIC performed by Keyon Cantu MD at [facility] ??? SALPINGO-OOPHORECTOMY Social History Socioeconomic History ??? Marital status: Spouse name: Not on file ??? Number of children: Not on file ??? Years of education: Not on file ??? Highest education level: Not on file Occupational History ??? Not on file Tobacco Use ??? Smoking status: Never Smoker ??? Smokeless tobacco: Never Used Vaping Use ??? Vaping Use: Never used Substance and Sexual Activity ??? Alcohol use: Yes Alcohol/week: 1.0 standard drink Types: 1 Shots of liquor per week Comment: once or twice a week MAYBE, not every week ??? Drug use: No ??? Sexual activity: Not on file Other Topics Concern ??? Not on file Social History Narrative ??? Not on file Social Determinants of Health Financial Resource Strain: ??? Difficulty of Paying Living Expenses: Not on file Food Insecurity: ??? Worried About Running Out of Food in the Last Year: Not on file ??? Ran Out of Food in the Last Year: Not on file Transportation Needs: ??? Lack of Transportation (Medical): Not on file ??? Lack of Transportation (Non-Medical): Not on file Physical Activity: ??? Days of Exercise per Week: Not on file ??? Minutes of Exercise per Session: Not on file Allergies Allergen Reactions ??? Gluten Other (See Comments) constipation ??? Levofloxacin Current Outpatient Medications on File Prior to Visit Medication Sig Dispense Refill ??? cevimeline (EVOXAC) 30 mg Capsule TAKE ONE CAPSULE BY MOUTH THREE TIMES A DAY 90 capsule 1 ??? gabapentin (Neurontin) 300 mg Capsule Take 2 capsules by mouth 3 times daily. 180 capsule 2 ??? hydrOXYchloroQUINE (Plaquenil) 200 mg Tablet Take 2 tablets by mouth daily. Indications: M35.00 60 tablet 1 ??? cholecalciferol, Vitamin D3, 1,250 mcg (50,000 unit) Capsule Take 1 capsule by mouth once monthly 12 capsule 0 ??? PREVIDENT 5000 DRY MOUTH 1.1 % Gel nightly. ??? DOCUSATE CALCIUM (STOOL SOFTENER ORAL) Take by mouth as needed. ??? ibuprofen (ADVIL;MOTRIN) 800 mg tablet Take 800 mg by mouth every 6 hours as needed. No current facility-administered medications on file prior to visit. ROS: HEENT, GI, /Renal, Psych, Card, Pulm, Endo, Heme, Immun, Neuro: negative Examination: Ht 157.5 cm (5' 2) Wt 81.2 kg (179 lb) BMI 32.74 kg/m?? Alert in NAD NC/AT Bilateral upper arms without visible scarring, no significant striae in upper arm Skin of good quality, not crepe-y or thinned. Mid upper arm circumference 38cm on L, 25cm on right, good muscle tone, small amount of extension onto lateral chest wall Impression: Ai Morrison 61 y.o. female patient who is here in consultation today to discuss surgical treatment for excessive arm tissue. I discuss with the patient r/b/a brachioplasty. We discussed incision placement, operative length, need for garment post-op, and anticipated recovery. We discussed short term complications, including delayed wound healing, infection, hematoma, seroma, asymmetry, numbness. We discussed usp complications, primarily focused on scarring/scar widening. I d/w her that scar widening can be best controlled by taking adequate recovery time post-op. 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 She would very much like the surgery but at this time she cannot take off so much time. A quote was provided and she will think about her work schedule and contact us when able to proceed. Plan: 1. Will provide quote for brachioplasty Pt will contact when she is able to take adequate time off of work for recovery Surgical Grid: Surgeon: Froilan Duration: 3h Timeframe: elective Procedure: brachioplasty CPT: 89222 Surgical site: arms Side: bilateral Anesthesia: General Follow up: 7-10 days RED PAT: H&P DOS Need to stop blood thinners pre-op? N/A documented in this encounter Plan of Treatment Upcoming Encounters Date Type Specialty Care Team Description 06/03/2022 Office Visit Rheumatology Benny Solano MD [facility] R[address] [place] 0375 (Wo rk) documented as of this encounter Visit Diagnoses Diagnosis Excessive skin and subcutaneous tissue documented in this encounter Care Teams Ice Maker Relationship Specialty Start Date End Date Anthony Samaniego MD PCP - General 07/16/[address] [place] [address] documented as of this encounter
--- OUTSIDE RECORDS SUMMARY | 2022-05-13 01:45 | XMS_ITS | Encounter Summary ---
:1960 Author Organization [place] [address] Care Team Providers Name Role Phone Anthony Samaniego MD Primary Care Provider [phone] Encounter Details Date Type Department Care Team Description 11/18/2020 Telephone Rheumatology at [facility] Graciela Torres, [place] [address] Social History Tobacco Use Types Packs/Day [...] this encounter Miscellaneous Notes Telephone Encounter - Graciela Torres RN - 11/18/2020 11:01 AM EST Ai calls back to make sure we have the right Rx for Gabapentin and that it was sent to pharmacy as they advised her they did not receive the Rx. Ai states dose is 300 mg TID and Rx states 600 mg TID. Ai states she has been having increaseddiscomfort and feels as though she would like to increase the Gabapentin. Reviewed notes and Dr. Solano advised 900 mg TID max dose. I have advised Ai to try an additional 300 mg at HS and see if this helps and to let us know of her response. Will need further recommendations on how Ai should titrate up on the Gabapentin from provider. There is a Rx at Pharmacy for the 2 tabs TID and I will call to confirm they received. Called [facility] and was not able to get through. Will try again later on. Ai requests a prescription of Vitamin D as she just finished what she had. Last Vitamin D result was 46. No recheck done in over a year. Ai advises she can have labs done at [facility]. Will check with provider to see if he would like Wilfredo have any labs done. documented in this encounter Plan of Treatment Upcoming Encounters Date Type Specialty Care Team Description 06/03/2022 Office Visit Rheumatology Benny Solano MD [facility] er RICHIE [place] 0375 (Wo rk) documented as of this encounter Visit Diagnoses Not on filedocumented in this encounter Care Teams Manual Arts Therapy Teacher Relationship Specialty Start Date End Date Anthony Samaniego MD PCP - General 07/16/[address] [place] [address] documented as of this encounter
--- OUTSIDE RECORDS SUMMARY | 2022-05-13 01:45 | XMS_ITS | Encounter Summary ---
:1960 Author Organization [facility] [place] [address] Care Team Providers Name Role Phone Anthony Samaniego MD Primary Care Provider [phone] Encounter Details Date Type Department Care Team Description 10/09/2019 Hospital Encounter [place] [facility] [place]enny Solano, Sjogren's syndrome, with uns pecified organ involvement; [address] [facility] [address] Celiac disease/sprue; [place], [place] One [facility] Medication jose toring encounter; [address] Center Pain in peñaloza, unspecified laterality; [phone] [place], [place] High risk medic ation use [address] Social History Tobacco Use Types Packs/Day Years [...] on file documented as of this encounter Medications at Time of Discharge Medication Sig Dispensed Refills Start Date End Date PREVIDENT 5000 DRY MOUTH nightly. 0 11/15/2018 1.1 % Gel DOCUSATE CALCIUM (STOOL Take by mouth as 0 SOFTENER ORAL) needed. ibuprofen (ADVIL;MOTRIN) Take 800 mg by 0 11/26/2021 800 mg tablet mouth every 6 hours as needed. hydroxychloroquine Take 2 tablets by 180 tablet 3 09/13/2019 09/01/2020 (PLAQUENIL) 200 mg mouth daily. TabletIndications: High risk medication use, Inflammatory arthropathy, Vitamin D deficiency, Dry eyes, Dry mouth cevimeline (EVOXAC) 30 mg Take 1 capsule by 90 capsule 3 07/201912/06/2019 Capsule mouth 3 times daily. gabapentin (NEURONTIN) 300 Take 1 capsule by 90 capsule 1 10/14/2019 mg CapsuleIndications: Dry mouth 3 times eyes, Sjogren's syndrome, daily. Start with with unspecified organ 1 tab at night involvement every 2 weeks will add a dose to breakfast and lunch until 3x a day cholecalciferol, Vitamin Take 1 capsule by 12 capsule 0 05/2612/19/2020 D3, 50,000 unit mouth once CapsuleIndications: High monthly risk medication use, Inflammatory arthropathy, Dry eyes, Dry mouth documented as of this encounter Plan of Treatment Upcoming Encounters Date Type Specialty Care Team Description 06/03/2022 Office Visit Rheumatology Benny Solano MD [facility] [address], [place] [address] (Wo rk) documented as of this encounter Procedures Procedure Name Priority Date/Time Associated Diagnosis Comme nts XR TIBIA FIBULA Routine 10/09/2019 11:19 AM Sjogren's syndrome , Results for this BILAT EST with unspecified procedure a re in organ involvemen t the results Celiac disease/s prue section. Medication monitoring encou nter Pain in peñaloza, unspecified laterality High risk medication use documented in this encounter Results XR Tibia Fibula Bilat (Generic) (10/09/2019 11:19 AM EST) Anatomical Region Laterality Modality Leg Bilateral Digital Radiography Specimen (Source) Anatomical Location Collection Method / Collectio n Time Received Time / Laterality Volume Impressions 10/09/2019 11:53 AM EST Unremarkable tibia/fibular radiographs Thank you for letting us participate in the care of this patient. For questions regarding this report, please contact e number below. ? Narrative 10/09/2019 11:53 AM EST EXAMINATION: XR TIBIA FIBULA BILAT (GENERIC) CLINICAL HISTORY: bilateral peñaloza pain TECHNIQUE: 2 views BILATERAL tibia and fibula COMPARISON: None FINDINGS: No fracture or abnormal sclerosis/lucenc y in the bilateral tibias and fibulas. Alignment is unremarkable. Unremarkable soft tissues. Procedure Note Charlie Machado MD - 10/09/2019Format ting of this note might be different from the original. EXAMINATION: XR TIBIA FIBULA BILAT (GENE LUIS) CLINICAL HISTORY: bilateral peñaloza pain TECHNIQUE: 2 views BILATERAL tibia and fibula COMPARISON: None FINDINGS: No fracture or abnormal sclerosis/lucenc y in the bilateral tibias and fibulas. Alignment is unremarkable. Unremarkable soft tissues. IMPRESSION Unremarkable tibia/fibular radiographs Thank you for letting us participate in the care of this patient. For questions regarding this report, please contact e number below. Benny Solano MD IMG DX ORDERABLES documented in this encounter Visit Diagnoses Diagnosis Sjogren's syndrome, with unspecified org an involvement Celiac disease/sprue Celiac disease Medication monitoring encounter Encounter for therapeutic drug monitorin g Pain in peñaloza, unspecified laterality High risk medication use Encounter for long-term (current) use of other medications documented in this encounter Care Teams Lamination Machine Operator Relationship Specialty Start Date End Date Anthony Samaniego MD PCP - General 07/16/[address] [place] [address] documented as of this encounter
--- OUTSIDE RECORDS SUMMARY | 2022-05-13 01:45 | XMS_ITS | Encounter Summary ---
:1960 Author Organization [place] [address] Care Team Providers Name Role Phone Anthony Samaniego MD Primary Care Provider [phone] Reason for Referral Consultation (Routine) - Specialty Diagnoses / Procedures Referred By Contact Refer red To Contact Diagnoses Sjogren's syndrome, with unspecified organ [place] [address] Referral ID Status Reason Start Date Expiration Date Visits V isits Requested Authorized [id number] Consult, 01/19/2021 07/18/2021 1 1 Test & Treat Non PCP Encounter Details Date Type Department Care Team Description 01/19/2021 Office Visit Rheumatology at [facility] Benny Solano, High risk medication use; [facility] Inflammatory arthropathy; [facility] Sjogren's syndrome, with uns pecified organ involvement; [place] [address] [place] [address] Dr Hogan [phone] [place] [id number] Social History Tobacco Use Types Packs/Day Years [...] Sign Reading Time Taken Comments Blood Pressure 139/76 01/19/2021 1:35 PM EDT Pulse 67 01/19/2021 1:35 PM EDT Temperature 36.4 ??C (97.5 ??F) 01/19/2021 1:35 PM EDT Respiratory Rate - - Oxygen Saturation 100% 01/19/2021 1:35 PM EDT Inhaled Oxygen Concentration - - Weight 88.5 kg (195 lb) 01/19/2021 1:35 PM EDT Height 157.5 cm (5' 2.01) 01/19/2021 1:35 PM EDT Body Mass Index 35.66 01/19/2021 1:35 PM EDT documented in this encounter Progress Notes Benny Solano MD - 01/19/2021 2:00 PM EDT Rheumatology Follow-up Note Rheum hx Celiac Dz Sj??gren???s Syndrome + lip BX SS - on HCQ Trialed turmeric CC peñaloza and knee pain Interval Hx: 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 She lost 53 pounds treamll. Eating low carb Diest joint are doing well Dry skin over peñaloza prutitic tired skin creams without benefit has not seen dermaology Joint pop a lot when it pops on eft shoulder while doing hairs Feels doing quie well on HCQ Fatigue imporved Schedule for eye exam Hs Fu with GI do coloscopy ROS: General (-)fevers, (-)chills, (-)night sweats, (-)wt loss/gain. HEENT (-)head trauma, (-)vision change, (-)tinnitus, (-)epistaxis, (-)sore throat, (-)bleeding gums,(-)oral ulcers, (-)dysphagia, (-)GERD, (-)photo sensitivity, (-)Hair loss, (-)vertigo CVS (-)chest pain, (-)palpitations, (-)pedal edema, (-)PND, (-)orthopnea. Pulm (-)shortness of breath, (-)KAPOOR, (-)wheezes, (-)cough, (-)pleuritic pain GI X of celiac (-)N/V, (-)abdominal pain, (-)emesis, (-)hematemesis, (-)hematochezia, (-)change in appetite (-)hematuria, (-)dysuria, (-)frequency, (-)nocturia, (-)genital ulcers MS (-)muscle weakness, (-)paralysis, Endo (-)thyroid disorders, (-)diabetes, (-)temperature intolerance. Neuro (-)focal weakness, (-)paresthesias, (-)gait instability. Skin (-)Raynaud's, (-) ulcers Psych (-) mood disorder. PMH: Celiac [...] smoker. 1 drink per week. Works as manager hair for about 40 years. Family Hx: PGM had RA. Mother had brain aneurysms, from COPD. Also had colon cancer. Sister has vasculitis. ROS: Physical Exam: BP 139/76 Pulse 67 Temp 36.4 ??C (97.5 ??F) (Temporal) Ht 157.5 cm (5' 2.01) Wt 88.5 kg (195 lb) SpO2 100% BMI 35.66 kg/m?? General: , NAD HEENT: Mucous membranes are moist, no oral mucosal ulcerations, temporal artery non-palpable, No LAd Cardiovascular: RR Lungs: Clear to auscultation bilaterally Abdomen: Soft, non tender, non distended, + bowel sounds, Neuro: Alert and oriented x3. Cranial nerves III through XII grossly intact. - Strength 5/5 throughout, -Sensation to light touch is grossly normal throughout. Skin: (-)ulcers, (-)rash 9SKin dicsoloration on the shis Vascular: Pulses are equal in all extremities. MSK Back: Non tender over the spine and costovertebral angles bilaterally. (-)[place] Neck: full range of motion. Extremities Shoulders: FROM, non-tender to palpation Elbows:FROM, (-)pain, (-)nodules Wrists: FROM, no swelling, non-tender Hands: No synovitis, no MCP compression tenderness, full claw and fist Hips: FROM, (-) fader (-ivania) Knees: (-)effusions, non-tender ROM Ankles: FROM, non-tender, no swelling. Bilaterla tibial TTP Feet: no MTP compression tenderness Spine, shoulders, elbows, wrists, fingers, hips, knees and ankles; no active swelling, tenderness orsynovitis at any joint. No soft tissue nodules. / FM tender points. Sensitive to gentle squeeze [...] (40-104) Folic acid vitamin B12 AME (ESTRELLA) GENERATOR WORKER 0.9 dsDNA CCP Rx C3-C4 SPEP TSH [...] with oral and IV contrast at [facility] Oral contrast seen in the stomach through [...] a 61 y.o. 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 Reportedly, here for evaluation of fatigue, arthralgias. osteoarthritis of the knees Tibial TTP possibly Osteomalacia 2.2 vit d with hx of celic and or Pain in the legs - anserine brusitis Fibromyalgia Delayed gastric emptying Peripheral neuropathy Vitamin D deficiency Skin changes over not consistent with HCQ induced referral to dermatology Sjogren's syndrome(SS) Serologies negative. Positive minor salivary gland biopsy for Sjogren's in May 2018 Sj??gren???s Syndrome- Cont symptomatic control - Cont HCQ- Dry eyes - seeing ophthomlogy Continue conservative measures including preservative-free artificial tears, flaxseed oil, Frequent sips of water, Biotene mouthwash/spray, prescription toothpaste. Cont cevimeline 30 mg tid (patient can start with once or twice and see how she does) discussed about the side effects. Patient taking twice daily as she noticed drooling during the night. Given vaginal dryness she wouldlike to take 3 times daily. Reportedly patient had significant vomiting after receiving oral contrast for CT abdomen pelvis in July 2018. Known history of delayed gastric emptying/SIBO, Elevated alkaline phosphatase. Negative antimitochondrial antibody, anti-smooth muscle antibody (association of primary biliary cholangitis with Sjogren's). Delayed gastric emptying. Celiac disease.No evidence of dysphagia. Gastric emptying may be delayed as a result of autonomic dysfunction. Fibromyalgia She is doing quite well Orders Placed This Encounter Procedures ??? Rheumatoid factor, quant ??? Protein Electrophoresis, serum ??? C3 Complement ??? C4 Complement ??? DNA Antibody (Double-Stranded) ??? Complement, Total ??? CBC (with Diff) ??? CRP, acute inflammation ??? Creatinine ??? Hepatic Function Panel ??? Sedimentation rate ??? Cryoglobulin ??? Referral to Dermatology Return in about 3 months (around 04/20/2021) for Telehealth. documented in this encounter Plan of Treatment Upcoming Encounters Date Type Specialty Care Team Description 06/03/2022 Office Visit Rheumatology Benny Solano MD [facility] [address] [place], [place] [address] (Wo rk) Scheduled Referrals Name Type Priority Associated Diagnoses Order S chedule Referral to Outpatient Referral Routine Sjogren's syndrome, O rdered: Dermatology with unspecified 01/19/2021 organ involvemen t Rash documented as of this encounter Visit Diagnoses Diagnosis High risk medication use Encounter for long-term (current) use of other medications Inflammatory arthropathy Arthropathy, unspecified, site unspecifi ed Sjogren's syndrome, with unspecified org an involvement Rash Rash and other nonspecific skin eruption documented in this encounter Care Teams Fiberglass Autobody Repairer Relationship Specialty Start Date End Date Anthony Samaniego MD PCP - General 07/16/[address] [place] [address] documented as of this encounter
--- OUTSIDE RECORDS SUMMARY | 2022-05-13 01:45 | XMS_ITS | Encounter Summary ---
:1960 Author Organization [facility] [place] [address] Care Team Providers Name Role Phone Anthony Samaniego MD Primary Care Provider Reason for Visit Reason Onset Date Comments Medication Refill 08/17/2021 Encounter Details Date Type Department Care Team Description 08/17/2021 [place]ill [place] [facility] [place]enny [place] [facility] [place] [address] [place] [address] [phone] (Wo rk) Social History Tobacco Use Types [...] Team Description 06/03/2022 Office Visit Rheumatology Benny Solaon MD [facility] er [address] [place], [place] [address] (Wo rk) documented as of this encounter Visit Diagnoses Not on filedocumented in this encounter Care Teams Manager Poker Relationship Specialty Start Date End Date Anthony Samaniego MD PCP - General 07/16/[address] [place] [address] documented as of this encounter
--- OUTSIDE RECORDS SUMMARY | 2022-05-13 01:45 | XMS_ITS | Encounter Summary ---
:1960 Author Organization [facility] [place] [address] Care Team Providers Name Role Phone Anthony Samainego MD Primary Care Provider [phone] Reason for Visit Reason Comments Medication Refill Encounter Details Date Type Department Care Team Description 08/01/2021 Refill Rheumatology at [facility] Benny Solano MD High risk medication use; [facility] Inflammatory arthropathy; [place] [address] Vitamin D deficiency; [phone] [place], [place] [address] Dry eyes; [phone] (Wo rk) Dry mouth Social History Tobacco [...] 06/03/2022 Office Visit Rheumatology Benny Solano MD [facility] [address] [place] [address] (Wo rk) documented as of this encounter Visit Diagnoses Diagnosis High risk medication use Encounter for long-term (current) use of other medications Inflammatory arthropathy Arthropathy, unspecified, site unspecifi ed Vitamin D deficiency Unspecified vitamin D deficiency Dry eyes Tear film insufficiency, unspecified Dry mouth Disturbance of salivary secretion documented in this encounter Care Teams Director Supply Chain Relationship Specialty Start Date End Date Anthony Samaniego MD PCP - General 07/16/[address] [place] [address] [address] [place] [address] documented as of this encounter
--- OUTSIDE RECORDS SUMMARY | 2022-05-13 01:45 | XMS_ITS | Encounter Summary ---
:1960 Author Organization [facility] [place] [address] Care Team Providers Name Role Phone Anthony Samaniego MD Primary Care Provider [phone] Encounter Details Date Type Department Care Team Description 09/01/2020 Telephone Rheumatology at [facility] Megan Sheffield [facility] R[place] [address] Social History Tobacco Use Types Packs/Day [...] this encounter Miscellaneous Notes Telephone Encounter - Megan Sheffield - 09/01/2020 12:53 PM EST LM to schedule follow up visit per [place] request documented in this encounter Plan of Treatment Upcoming Encounters Date Type Specialty Care Team Description 06/03/2022 Office Visit Rheumatology Benny Solano MD [facility] RICHIE [place] [address] (Wo rk) documented as of this encounter Visit Diagnoses Not on filedocumented in this encounter Care Teams Bill Distributor Relationship Specialty Start Date End Date Anthony Samaniego MD PCP - General 07/16/[address] [place] [address] documented as of this encounter
--- OUTSIDE RECORDS SUMMARY | 2022-05-13 01:45 | XMS_ITS | Encounter Summary ---
:1960 Author Organization [facility] [place] [address] Care Team Providers Name Role Phone Anthony Samaniego MD Primary Care Provider [phone] Reason for Visit Reason Onset Date Comments Medication Refill 09/01/2020 Encounter Details Date Type Department Care Team Description 09/01/2020 Refill Rheumatology at [facility] [place]enny Solano MD High risk medication use; [facility] Inflammatory arthropathy; [place] [address] Vitamin D deficiency; [phone] [place], [place] [address] Dry eyes; [phone] (Wo rk) Dry mouth Social History Tobacco [...] 06/03/2022 Office Visit Rheumatology Benny Solano MD [facility] er [place] [address] (Wo rk) documented as of this encounter Visit Diagnoses Diagnosis High risk medication use Encounter for long-term (current) use of other medications Inflammatory arthropathy Arthropathy, unspecified, site unspecifi ed Vitamin D deficiency Unspecified vitamin D deficiency Dry eyes Tear film insufficiency, unspecified Dry mouth Disturbance of salivary secretion documented in this encounter Care Teams Handkerchief Sample Clerk Relationship Specialty Start Date End Date Anthony Samaniego MD PCP - General 07/16/[address] [place] [address] documented as of this encounter
--- OUTSIDE RECORDS SUMMARY | 2022-05-13 01:45 | XMS_ITS | Encounter Summary ---
:1960 Author Organization [facility] Address [facility] [place] [address] Care Team Providers Name Role Phone Anthony Samaniego MD Primary Care Provider [phone] Encounter Details Date Type Department Care Team Description 09/29/2021 Orders Only Rheumatology at [facility] Benny Solano MD Chronic pain of both shoulders; [facility] Dry eyes; Drive Sjogren's syndrome, with [place] [address] [place] [address] [phone] Social History Tobacco Use Types Packs/Day Years [...] 06/03/2022 Office Visit Rheumatology Benny Solano MD [facility] er Dr Rg [place] [address] (Wo rk) documented as of this encounter Visit Diagnoses Diagnosis Chronic pain of both shoulders Pain in joint, shoulder region Dry eyes Tear film insufficiency, unspecified Sjogren's syndrome, with unspecified org an involvement documented in this encounter Care Teams Plaster Block Layer Relationship Specialty Start Date End Date Anthony Samaniego MD PCP - General 07/16/[address] [place] [address] documented as of this encounter
--- OUTSIDE RECORDS SUMMARY | 2022-05-13 01:45 | XMS_ITS | Encounter Summary ---
:1960 Author Organization [facility] [place] [address] Care Team Providers Name Role Phone Anthony Samaniego MD Primary Care Provider [phone] Encounter Details Date Type Department Care Team Description 12/29/2020 Telephone Rheumatology at [facility] Gracilea Torres, [place] [address] Social History Tobacco Use Types Packs/Day [...] Telephone Encounter - Graciela Torres RN - 12/29/2020 2:59 PM EDT Rambo Mccarthy MD sent to [facility] Rheumatology Nurse Covering for Dr. Solano. ??Laboratory tests from [facility] reviewed. ??Very reassuring results. ??No significant abnormalities. ??To be discussed at next appointment with Dr. Xiomara Aj sent Ai a [employer] message. documented in this encounter Plan of Treatment Upcoming Encounters Date Type Specialty Care Team Description 06/03/2022 Office Visit Rheumatology Benny Solano MD [facility] [place], [place] [address] (Wo rk) documented as of this encounter Visit Diagnoses Not on filedocumented in this encounter Care Teams Pit Manager Relationship Specialty Start Date End Date Anthony Samaniego MD PCP - General 07/16/[address] [place] [address] documented as of this encounter
--- OUTSIDE RECORDS SUMMARY | 2022-05-13 01:45 | XMS_ITS | Encounter Summary ---
:1960 Author Organization [facility] [place] [address] Care Team Providers Name Role Phone Anthony Samaniego MD Primary Care Provider [phone] Reason for Visit Reason Onset Date Comments Medication Refill Medication Refill 08/17/2021 Encounter Details Date Type Department Care Team Description 08/17/2021 Refill Rheumatology at [facility] Benny Solano MD [facility] [place] [address] [place] [address] [phone] (Wo rk) Social History Tobacco Use Types [...] 06/03/2022 Office Visit Rheumatology Benny Solano MD [facility] er Dr Rg [place] [address] (Wo rk) documented as of this encounter Visit Diagnoses Not on filedocumented in this encounter Care Teams Handle Bar Assembler Relationship Specialty Start Date End Date Anthony Samaniego MD PCP - General 07/16/[address] [place] [address] documented as of this encounter
--- OUTSIDE RECORDS SUMMARY | 2022-05-13 01:45 | XMS_ITS | Encounter Summary ---
:1960 Author Organization [facility] [place] [address] Care Team Providers Name Role Phone Anthony Samaniego MD Primary Care Provider [phone] Reason for Visit Reason Onset Date Comments Labs Only 09/29/2021 Encounter Details Date Type Department Care Team Description 09/29/2021 Telephone Rheumatology at [facility] Graciela Torres, [place] [address] Social History Tobacco Use Types Packs/Day [...] Telephone Encounter - Graciela Torres RN - 09/29/2021 9:30 AM EST Ai calls about labs at [facility]. RTC and LM to RTC to nurse or send message via [facility]. Ai calls back and asks for labs to be sent to [facility] and for Q3 months so she does not have to request every time. Lab orders good until . Fabiola He sent to Graciela Torres RN Caller: Unspecified (Yesterday, 12:17 PM) Orders sent to [facility] ?? documented in this encounter Plan of Treatment Upcoming Encounters Date Type Specialty Care Team Description 06/03/2022 Office Visit Rheumatology Benny Solano MD [facility] [address] [place], [place] [address] (Wo rk) documented as of this encounter Visit Diagnoses Not on filedocumented in this encounter Care Teams Ice Cream Shop Associate Relationship Specialty Start Date End Date Anthony Samaniego MD PCP - General 07/16/[address] [place] [address] documented as of this encounter
--- OUTSIDE RECORDS SUMMARY | 2022-05-13 01:45 | XMS_ITS | Encounter Summary ---
:1960 Author Organization [facility] [place] [address] Care Team Providers Name Role Phone Anthony Samaniego MD Primary Care Provider [phone] Encounter Details Date Type Department Care Team Description 11/19/2020 Orders Only Rhe[place]ology at [facility] [place]enny Solano, High risk medication use; [facility] Inflammatory arthropathy; [facility] Vitamin D deficiency; [place] [address] Center Sjogren's syndrome, with unspecified org an involvement [phone] [place], [place] [address] Social History Tobacco Use Types Packs/Day Years [...] 06/03/2022 Office Visit Rheumatology Benny Solano MD [facility] er [place], [place] [address] (Wo rk) documented as of this encounter Visit Diagnoses Diagnosis High risk medication use Encounter for long-term (current) use of other medications Inflammatory arthropathy Arthropathy, unspecified, site unspecifi ed Vitamin D deficiency Unspecified vitamin D deficiency Sjogren's syndrome, with unspecified org an involvement documented in this encounter Care Teams Solid Die Cutter Relationship Specialty Start Date End Date Anthony Samaniego MD PCP - General 07/16/[address] [place] [address] [address] [facility] [place] [address] documented as of this encounter
--- OUTSIDE RECORDS SUMMARY | 2022-05-13 01:45 | XMS_ITS | Encounter Summary ---
:1960 Author Organization [facility] [place] [address] Care Team Providers Name Role Phone Anthony Samaniego MD Primary Care Provider [phone] Reason for Visit Reason Comments Medication Refill Encounter Details Date Type Department Care Team Description 11/13/2020 Refill Rheumatology at [facility] Benny Solano MD Dry eyes; [facility] Sjogren's syndrome, with uns pecified organ involvement; [place] [address] Sicca syndrome [phone] [place], [place] [address] (Wo rk) Social History Tobacco [...] Solano MD [facility] er [place], [place] [address] (Wo rk) documented as of this encounter Visit Diagnoses Diagnosis Dry eyes Tear film insufficiency, unspecified Sjogren's syndrome, with unspecified org an involvement Sicca syndrome documented in this encounter Care Teams Slate Roofer Helper Relationship Specialty Start Date End Date Anthony Samaniego MD PCP - General 07/16/[address] [place] [address] documented as of this encounter
--- OUTSIDE RECORDS SUMMARY | 2022-05-13 01:45 | XMS_ITS | Encounter Summary ---
:1960 Author Organization [facility] [place] [address] Care Team Providers Name Role Phone Anthony Samaniego MD Primary Care Provider [phone] Reason for Visit Reason Comments Medication Refill Encounter Details Date Type Department Care Team Description 06/03/2021 Refill Rheumatology at [facility] Benny Solano MD High risk medication use; [facility] Inflammatory arthropathy; [place] [address] Vitamin D deficiency; [phone] [place], [place] [address] Dry eyes; [phone] (Wo rk) Dry mouth Social History Tobacco [...] 06/03/2022 Office Visit Rheumatology Benny Solano MD [facility] er [place], [place] [address] (Wo rk) documented as of this encounter Visit Diagnoses Diagnosis High risk medication use Encounter for long-term (current) use of other medications Inflammatory arthropathy Arthropathy, unspecified, site unspecifi ed Vitamin D deficiency Unspecified vitamin D deficiency Dry eyes Tear film insufficiency, unspecified Dry mouth Disturbance of salivary secretion documented in this encounter Care Teams Ground Worker Relationship Specialty Start Date End Date Anthony Samaniego MD PCP - General 07/16/[address] [place] [address] [address] [place] [address] documented as of this encounter
--- OUTSIDE RECORDS SUMMARY | 2022-05-13 01:45 | XMS_ITS | Encounter Summary ---
:1960 [place] [address] Care Team Providers Name Role Phone Anthony Samaniego MD Primary Care Provider [phone] Reason for Visit Reason Comments Medication Refill Encounter Details Date Type Department Care Team Description 08/14/2020 Refill Rheumatology at [facility] Benny Solano MD [facility] [place] [address] [place] [address] [phone] (Wo rk) Social History Tobacco Use Types [...] 06/03/2022 Office Visit Rheumatology Benny Solano MD [facility] er [place], [place] [address] (Wo rk) documented as of this encounter Visit Diagnoses Not on filedocumented in this encounter Care Teams Vocational Coordinator Relationship Specialty Start Date End Date Anthony Samaniego MD PCP - General 07/16/[address] [place] [address] documented as of this encounter
--- OUTSIDE RECORDS SUMMARY | 2022-05-13 01:45 | XMS_ITS | Encounter Summary ---
:1960 Author Organization [facility] [place] [address] Care Team Providers Name Role Phone Anthony Samnaiego MD Primary Care Provider [phone] Encounter Details Date Type Department Care Team Description 11/18/2020 Telephone Rheumatology at [facility] Jerry Betancourt, [place] [address] Social History Tobacco Use Types Packs/Day [...] this encounter Miscellaneous Notes Telephone Encounter - eJrry Betancourt RN - 11/18/2020 4:33 PM EST RTC to Ai and left a message stating that she needs a FU, and gave her the secretaries' number, and let her know that she needs labs and an eye exam. documented in this encounter Plan of Treatment Upcoming Encounters Date Type Specialty Care Team Description 06/03/2022 Office Visit Rheumatology Benny Solano MD [facility] Dr [place], [place] [address] (Wo rk) documented as of this encounter Visit Diagnoses Not on filedocumented in this encounter Care Teams Criminal Psychologist Relationship Specialty Start Date End Date Anthony Samaniego MD PCP - General 07/16/[address] [place] [address] documented as of this encounter
--- OUTSIDE RECORDS SUMMARY | 2022-05-13 01:45 | XMS_ITS | Encounter Summary ---
:1960 Author Organization [facility] [place] [address] Care Team Providers Name Role Phone Anthony Samaniego MD Primary Care Provider [phone] Encounter Details Date Type Department Care Team Description 09/09/2021 Orders Only Rheumatology at [facility] Benny Solano MD Chronic pain of both [facility] [place] [address] [place] [address] [phone] Social History Tobacco Use Types Packs/Day Years [...] Visit Rheumatology Benny Solano MD [facility] [address] [place], [place] [address] (Wo rk) documented as of this encounter Visit Diagnoses Diagnosis Chronic pain of both shoulders Pain in joint, shoulder region documented in this encounter Care Teams Geothermal Heat Pump Machinist Relationship Specialty Start Date End Date Anthony Samaniego MD PCP - General 07/16/14 [address] [facility] [address] [facility] 1 [place] [address] documented as of this encounter
--- OUTSIDE RECORDS SUMMARY | 2022-05-13 01:45 | XMS_ITS | Encounter Summary ---
:1960 [place] [address] Care Team Providers Name Role Phone Anthony Samaniego MD Primary Care Provider [phone] Reason for Visit Reason Comments Medication Refill Encounter Details Date Type Department Care Team Description 12/05/2019 Refill Rheumatology at [facility] Benny Solano MD [facility] [place] [address] [place] [address] [phone] (Wo rk) Social History Tobacco Use Types [...] 06/03/2022 Office Visit Rheumatology Benny Solano MD [facility] er [place], [place] [address] (Wo rk) documented as of this encounter Visit Diagnoses Not on filedocumented in this encounter Care Teams Event Specialist Food Demonstrator Relationship Specialty Start Date End Date Anthony Samaniego MD PCP - General 07/16/[address] [place] [address] documented as of this encounter
--- OUTSIDE RECORDS SUMMARY | 2022-05-13 01:45 | XMS_ITS | Encounter Summary ---
:1960 Author Organization [facility] [address] Care Team Providers Name Role Phone Anthony Samaniego MD Primary Care Provider [phone] Reason for Visit Reason Onset Date Comments Medication Refill 11/16/2020 Encounter Details Date Type Department Care Team Description 11/16/2020 Refill Rheumatology at [facility] Benny Solano MD Dry eyes; [facility] D lennye [facility] Sjogren's syndrome, with uns pecified organ involvement; [place] [address] Sicca syndrome; [phone] [place], [place] [address] High risk medication use; [phone] (Wo rk) Inflammatory arthropathy; Vitamin D deficiency; Dry mouth Social History Tobacco Use Types [...] 06/03/2022 Office Visit Rheumatology Benny Solano MD [facility] [place], [place] [address] (Wo rk) documented as of this encounter Visit Diagnoses Diagnosis Dry eyes Tear film insufficiency, unspecified Sjogren's syndrome, with unspecified org an involvement Sicca syndrome High risk medication use Encounter for long-term (current) use of other medications Inflammatory arthropathy Arthropathy, unspecified, site unspecifi ed Vitamin D deficiency Unspecified vitamin D deficiency Dry mouth Disturbance of salivary secretion documented in this encounter Care Teams Home Visits Nurse Relationship Specialty Start Date End Date Anthony Samaniego MD PCP - General 07/16/[address] [place] [address] documented as of this encounter
--- OUTSIDE RECORDS SUMMARY | 2022-05-13 01:45 | XMS_ITS | Encounter Summary ---
:1960 Author Organization [facility] [place] [address] Care Team Providers Name Role Phone Anthony Samaniego MD Primary Care Provider [phone] Reason for Visit Reason Onset Date Comments New Medication Request 11/01/2021 Encounter Details Date Type Department Care Team Description 11/01/2021 Telephone Rheumatology at [facility] Graciela Torres, New Medication Request [facility] [place] [address] Social History Tobacco Use Types Packs/Day [...] Telephone Encounter - Graciela Torres RN - 11/01/2021 11:47 AM EST Ai calls to advise she has changed her mind and does want the Prednisone called to her pharmacy. Benny Solano MD sent to Graciela Torres RN Caller: Unspecified (Today, ??9:53 AM) I am seeing her 2 days. I would rather her not on both. ?? Called Ai to advise and she states she is [facility] at [facility] and states that the provider there isstarting her on a steroid taper today. She wants to change her appointment to next Monday insteadof this Monday.. I advised that I will notify her provider to reach out to her. documented in this encounter Plan of Treatment Upcoming Encounters Date Type Specialty Care Team Description 06/03/2022 Office Visit Rheumatology Benny Solano MD [facility] er Dr [place], [place] [address] (Wo rk) documented as of this encounter Visit Diagnoses Not on filedocumented in this encounter Care Teams Distance Learning Administrator Relationship Specialty Start Date End Date Anthony Samaniego MD PCP - General 07/16/14 [facility] [address] [place] [address] documented as of this encounter
--- OUTSIDE RECORDS SUMMARY | 2022-05-13 01:45 | XMS_ITS | Encounter Summary ---
:1960 [place] [address] Care Team Providers Name Role Phone Anthony Samaniego MD Primary Care Provider [phone] Reason for Visit Reason Comments Medication Refill Encounter Details Date Type Department Care Team Description 04/05/2020 Refill [place] [facility] Benny Solano MD [facility] [place] [address] [place] [address] [phone] (Wo rk) Social History Tobacco Use Types [...] Visit Rheumatology Benny Solano MD [facility] er [address] [place], [place] [address] (Wo rk) documented as of this encounter Visit Diagnoses Not on filedocumented in this encounter Care Teams Clinical Business Analyst Relationship Specialty Start Date End Date Anthony Samaniego MD PCP - General 07/16/[address] [place] [address] documented as of this encounter
--- OUTSIDE RECORDS SUMMARY | 2022-05-13 01:45 | XMS_ITS | Encounter Summary ---
:1960 Author Organization [facility] [place] [address] Care Team Providers Name Role Phone Anthony Samaniego MD Primary Care Provider [phone] Reason for Visit Reason Onset Date Comments Medication Refill 11/17/2020 Encounter Details Date Type Department Care Team Description 11/17/2020 Refill Rheumatology at [facility] Benny Solano MD Dry eyes; [facility] D lennye [facility] Sjogren's syndrome, with uns pecified organ involvement; [place] [address] Sicca syndrome; [phone] [place], [place] [address] High risk medication use; [phone] (Wo rk) Inflammatory arthropathy; Dry mouth Social History Tobacco Use Types [...] Telephone Encounter - Graciela Torres RN - 11/17/2020 4:28 PM EST LM for Ia to RTC to nurse as Rx for Gabapentin is confusing due to a 300 mg cap and 600 mg cap being requested. documented in this encounter Plan of Treatment Upcoming Encounters Date Type Specialty Care Team Description 06/03/2022 Office Visit Rheumatology Benny Solano MD [facility] er [address] [place], [place] [address] (Wo rk) documented as of this encounter Visit Diagnoses Diagnosis Dry eyes Tear film insufficiency, unspecified Sjogren's syndrome, with unspecified org an involvement Sicca syndrome High risk medication use Encounter for long-term (current) use of other medications Inflammatory arthropathy Arthropathy, unspecified, site unspecifi ed Dry mouth Disturbance of salivary secretion documented in this encounter Care Teams Architectural Drafting Instructor Relationship Specialty Start Date End Date Anthony Samaniego MD PCP - General 07/16/[address] [place] [address] documented as of this encounter
--- OUTSIDE RECORDS SUMMARY | 2022-05-13 01:45 | XMS_ITS | Encounter Summary ---
:1960 Author Organization [facility] [place] [address] Care Team Providers Name Role Phone Anthony Samaniego MD Primary Care Provider [phone] Reason for Referral Physical Therapy (Routine) - Specialty Diagnoses / Procedures Referred By Contact Refer red To Contact Diagnoses Dry eyes Sjogren's syndrome, with unspecified organ involvement Sicca syndrome Pain in peñaloza, unspecified laterality Chronic pain of both ankles Osteoarthritis of right ankle, unspecified osteoarthritis [place] [address] Referral ID Status Reason Start Date Expiration Date Visits V isits Requested Authorized [id number] Evaluate and 03/12/2020 09/08/2020 12 12 Treat Non PCP Encounter Details Date Type Department Care Team Description 03/12/2020 TH Visit Rheumatology at [facility] [place] Benny Solano, Dry eyes; (TeleHealth) [facility] Sjogren's syndrome, with unspecified org an involvement; 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 Reportedly, here for evaluation of fatigue, arthralgias. The fatigue continuet bilaterla peñaloza pain or bone pains. Chronicn intermittent right ankle pain No swelling, rendess or wamrth of the joints. Dry eyes not using anything. Dry mouth being managed with ceveelamine. Dry skinNo SOB She is on HCQ, gabapentin and ibuprofen 800 mg bid to help with pain. Does not take any tylenol is tolerating gabapetin well ROS: Remaind 11 point ROS WNL Past Medical History: Diagnosis Date ??? Celiac disease ??? Celiac disease ??? Chronic constipation ??? Fibromyalgia Patient Active Problem List Diagnosis Date Noted ??? Sjogren's syndrome 08/22/2018 ??? Celiac disease/sprue 08/26/2015 ??? Chronic constipation 08/26/2015 Past Surgical History: Procedure Laterality Date ??? OVARIAN CYST REMOVAL Right ??? PRO COLONOSCOPY, DIAGNOSTIC 02/06/2013 COLONOSCOPY, DIAGNOSTIC performed by Keyon Cantu MD at [facility] ??? PRO COLONOSCOPY, DIAGNOSTIC N/A 10/26/2016 COLONOSCOPY, DIAGNOSTIC performed by Keyon Cantu MD at [facility] ??? SALPINGO-OOPHORECTOMY Family History Problem Relation Age of Onset ??? Colorectal Cancer Mother ??? Colorectal Cancer Maternal Aunt Social History Socioeconomic History ??? Marital status: Spouse name: None ??? Number of children: None ??? Years of education: None ??? Highest education level: None Occupational History ??? None Social Needs ??? Financial resource strain: None ??? Food insecurity Worry: None Inability: None ??? Transportation needs Medical: None Non-medical: None Tobacco Use ??? Smoking status: Never Smoker ??? Smokeless tobacco: Never Used Substance and Sexual Activity ??? Alcohol use: Yes Alcohol/week: 1.0 standard drinks Types: 1 Shots of liquor per week Comment: once or twice a week MAYBE, not every week ??? Drug use: No ??? Sexual activity: None Lifestyle ??? Physical activity Days per week: None Minutes per session: None ??? Stress: None Relationships ??? Social connections Talks on phone: None Gets together: None Attends buddhist service: None Active member of club or organization: None Attends meetings of clubs or organizations: None Relationship status: None ??? Intimate partner violence Fear of current or ex partner: None Emotionally abused: None Physically abused: None Forced sexual activity: None Other Topics Concern ??? None Social History Narrative ??? None Current Outpatient Medications Medication Sig Dispense Refill ??? gabapentin (Neurontin) 300 mg Capsule Take 2 capsules by mouth 3 times daily. 180 capsule 3 ??? cevimeline (EVOXAC) 30 mg Capsule TAKE 1 CAPSULE BY MOUTH THREE TIMES DAILY 90 capsule 3 ??? hydroxychloroquine (PLAQUENIL) 200 mg Tablet Take 2 tablets by mouth daily. 180 tablet 3 ??? cholecalciferol, Vitamin D3, 50,000 unit Capsule Take 1 capsule by mouth once monthly 12 capsule0 ??? PREVIDENT 5000 DRY MOUTH 1.1 % Gel nightly. ??? DOCUSATE CALCIUM (STOOL SOFTENER ORAL) Take by mouth as needed. ??? ibuprofen (ADVIL;MOTRIN) 800 mg tablet Take 800 mg by mouth every 6 hours as needed. No current facility-administered medications for this visit. Current Outpatient Medications on File Prior to Visit Medication Sig Dispense Refill ??? cevimeline (EVOXAC) 30 mg Capsule TAKE 1 CAPSULE BY MOUTH THREE TIMES DAILY 90 capsule 3 ??? [DISCONTINUED] gabapentin (Neurontin) 300 mg Capsule Take 1 capsule by mouth 3 times daily. 90 capsule 3 ??? hydroxychloroquine (PLAQUENIL) 200 mg Tablet Take 2 tablets by mouth daily. 180 tablet 3 ??? cholecalciferol, Vitamin D3, 50,000 unit Capsule Take 1 capsule by mouth once monthly 12 capsule0 ??? PREVIDENT 5000 DRY MOUTH 1.1 % Gel nightly. ??? DOCUSATE CALCIUM (STOOL SOFTENER ORAL) Take by mouth as needed. ??? ibuprofen (ADVIL;MOTRIN) 800 mg tablet Take 800 mg by mouth every 6 hours as needed. No current facility-administered medications on file prior to visit. Allergies Allergen Reactions ??? Gluten Other (See Comments) constipation ??? Levofloxacin PMH: Celiac disease biopsy-proven, follows with GI Right upper quadrant abdominal pain Diverticulosis of the colon Small intestin bacterialal Overgrowth (erythromycin, rifaximin) Anemia Fatigue Chronic arthralgias of knees and hips Anxiety Mood disorders Restless leg syndrome Family history of cerebral aneurysm Status post cholecystectomy Status post Colonic polyp, colonoscopy 2005, repeat 2010 Work up for interstitial cystitis negative in past. Social Hx: Never smoker. 1 drink per week. 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 Family Hx: PGM had RA. Mother had brain aneurysms, from COPD. Also had colon cancer. Sister has vasculitis. Physical Exam: There were no vitals taken for this visit. Labs/Studies: 10/25/2017 CBC WNL, Elevated MCV, around [...] (40-104) Folic acid vitamin B12 AME (ESTRELLA) LEAD INVESTIGATOR 0.9 dsDNA CCP Rx C3-C4 SPEP TSH [...] pelvis with oral and IV contrast at [facility] Oral contrast seen in the stomach through [...] level 30 Impression/recommendations: Ai Morrison is a 60 y.o. 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 Reportedly, here for evaluation of fatigue, arthralgias. steoarthritis of the knees Tibial ankle pain - Xr T.F wnl, Vit D wnl, possibly referred from knees with oa BMI contributor -intermittent ankle w/o descriptive synovitis makes like Oa - can get Xr Increase Gabapentin step chang max dose 900mg tid Add tylenol Pt for the knees and ankle Support brace since jason moslty a sandal style of shoe Sjogren's syndrome(SS) Serologies negative. Positive minor salivary gland biopsy for Sjogren's in May 2018 Sj??gren???s Syndrome- Cont symptomatic control - Cont HCQ- neil RTX if no benfit Dry eyes - seeing ophthomlogy Continue conservative measures including preservative-free artificial tears, flaxseed oil, Frequent sips of water, Biotene mouthwash/spray, prescription toothpaste. Cont cevimeline 30 mg tid (patient can start with once or twice and see how she does) discussed about the side effects.Doing well Patient taking twice daily as she noticed [...] as a result of autonomic dysfunction. Fibromyalgia Discussed in detail about fibromyalgia. Well versed about fibromyalgia. Recommend pool therapy, sleep study (restless leg syndrome, possible ESTEVAN given narrow oropharynx, poor nonrestorative sleep) Eventually fibromyalgia SMA. Discussed about possible medications such as amitriptyline, gabapentin, Lyrica, milnacipran. Gabapentin might be a better choice to consider given poor sleep, peripheral neuropathy. Endorses that she might consider CBD oil. She is on ceevlamine RTC in 2 months Discussed weight loss Orders Placed This Encounter Procedures ??? XR Foot Min 3 views Bilat (Generic) ??? CBC (with Diff) ??? Comprehensive metabolic panel (non-fasting) ??? CRP, acute inflammation ??? Sedimentation rate ??? Cryoglobulin ??? C3 Complement ??? Rheumatoid factor, quant ??? Cyclic Citrullinated Peptide ??? C4 Complement ??? Protein Electrophoresis, serum ??? Protein Electrophoresis, urine, random ??? Urinalysis with reflex Culture ??? Free Light Chains, Serum ??? Referral to Physical Therapy documented in this encounter Plan of Treatment Upcoming Encounters Date Type Specialty Care Team Description 06/03/2022 Office Visit Rheumatology Benny Solano MD [facility] [address], [place] [address] (Wo rk) Scheduled Referrals Name Type Priority Associated Diagnoses Order S chedule Referral to Outpatient Referral Routine Dry eyes Ordered: Physical Therapy Sjogren's syndrome, 02/23 with unspecified organ involvement Sicca syndrome Pain in peñaloza, unspecified late rality Chronic pain of both ankles Osteoarthritis of right ankle, unspecified osteoarthritis type documented as of this encounter Visit Diagnoses Diagnosis Dry eyes Tear film insufficiency, unspecified Sjogren's syndrome, with unspecified org an involvement Sicca syndrome Pain in peñaloza, unspecified laterality Chronic pain of both ankles Osteoarthritis of right ankle, unspecifi ed osteoarthritis type documented in this encounter Care Teams Felt Cutting Machine 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
--- OUTSIDE RECORDS SUMMARY | 2022-05-13 01:45 | XMS_ITS | Encounter Summary ---
:1960 Author Organization [facility] [place] [address] Care Team Providers Name Role Phone Anthony Samaniego MD Primary Care Provider [phone] Reason for Visit Reason Comments Medication Refill Encounter Details Date Type Department Care Team Description 03/31/2021 Refill Rheumatology at [facility] [place] Benny Solano MD Dry eyes; [facility] Sjogren's syndrome, with uns pecified organ involvement; [place] [address] Sicca syndrome [phone] [place], [place] [address] (Wo rk) Social History Tobacco [...] this encounter Miscellaneous Notes Telephone Encounter - Beena Verduzco RN - 04/01/2021 9:49 AM EDT Med requested: Gabapentin GONZALEZ: 4.21.21 NOV: needs 3 month f/u scheduled Last Refill: 02.16.21 documented in this encounter Plan of Treatment Upcoming Encounters Date Type Specialty Care Team Description 06/03/2022 Office Visit Rheumatology Benny Solnao MD [facility] [place] [address] [place] [address] (Wo rk) documented as of this encounter Visit Diagnoses Diagnosis Dry eyes Tear film insufficiency, unspecified Sjogren's syndrome, with unspecified org an involvement Sicca syndrome documented in this encounter Care Teams Steam Tender Relationship Specialty Start Date End Date Anthony Samaniego MD PCP - General 07/16/[address] [place] [address] documented as of this encounter
--- OUTSIDE RECORDS SUMMARY | 2022-05-13 01:45 | XMS_ITS | Encounter Summary ---
:1960 [place] [address] Care Team Providers Name Role Phone Anthony Samaniego MD Primary Care Provider [phone] Reason for Visit Reason Onset Date Comments Medication Refill 10/07/2021 Encounter Details Date Type Department Care Team Description 10/07/2021 Refill Rheumatology at [facility] Julio Cesar Muñoz PA [facility] [place] [address] RHEUMATOLOGY [phone] [place], [place] [address] (Wo rk) Social History Tobacco [...] Visit Rheumatology Benny Solano MD [facility] [address] [place] [address] (Wo rk) documented as of this encounter Visit Diagnoses Not on filedocumented in this encounter Care Teams Vegetable Sorter Relationship Specialty Start Date End Date Anthony Samaniego MD PCP - General 07/16/[address] [place] [address] documented as of this encounter
--- OUTSIDE RECORDS SUMMARY | 2022-05-13 01:45 | XMS_ITS | Encounter Summary ---
:1960 Author Organization [facility] [place] [address] Care Team Providers Name Role Phone Anthony Samaniego MD Primary Care Provider [phone] Encounter Details Date Type Department Care Team Description 10/25/2021 TH Visit Rheumatology at [facility] [place] Benny Solano, Dry eyes; (TeleHealth) [facility] Sjogren's syndrome, with unspecified org an involvement; [facility] Sicca syndrome; [place], [place] Center High risk medication use; [id number] [place], [place] Inflammatory arthropathy; [phone] [id number] Medication monitoring encounter; [phone] Osteoarthritis of right ankle, unspecified osteoarthritis type; (Work) Chronic pain of both shoulders; [phone] Pain in both [place] nds; (Fax) Low serum vitam in D Social History Tobacco Use Types Packs/Day Years [...] encounter Progress Notes Benny Solano MD - 10/25/2021 7:30 AM EST Rheumatology Follow-up Note Rheum hx Celiac Dz Sj??gren???s Syndrome + lip BX SS - on HCQ Trialed turmeric CC peñaloza and knee pain Interval Hx: Ai Morrison is a 61 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 Patient described mild degree of bilateral shoulder pain over the past 2 months worse in the AM. Thepain is worse when she lies on her shoulder which is across. 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 She is taking ibuprofen 2-3 times a day. She cannot tolerate gabapentin more than twice a day. She has never tried Lyrica. She denies any swollen red and warm joints. She also noted some increased bilateral hand pain and stiffness for the past few months. She is mostly off on Wednesdays. Chronic dry eyes dry mouth does not bother she has history of celiac some diverticula colitis. Recent chronic abdominal pain mostly feels a constant the patient. No recent blood in the stool no unexplained weight loss no night sweats no fevers, no chills no lymphadenopathy no nausea, no vomiting, no diarrhea., Heartburn, holding onto fluid, pelvic hip or lower back pain, no rashes, no blood in the stool, no blood in the urine. She is never discussed methotrexate. She discussed that she does have a wood-burning stove in her house is dry but dry eyes dry mouth hasnot been a problem she does not have hygrometer ROS: PMH: Celiac disease biopsy-proven, follows with GI [...] smoker. 1 drink per week. 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 Family Hx: PGM had RA. Mother had brain aneurysms, from COPD. Also had colon cancer. Sister has vasculitis. ROS: Physical Exam: NAD NCAT, nonicteric sclera, no Malar rash Neck full range of motion No increased work of breathing AO x3 Hands well-perfused Moving shoulders elbows wrists fingers can make a fist Able to get up out of chair from seated position . FM tender points. Sensitive to gentle squeeze [...] (40-104) Folic acid vitamin B12 AME (ESTRELLA) SYSTEM SUPPORT TECHNICIAN 0.9 dsDNA CCP Rx C3-C4 SPEP TSH [...] pelvis with oral and IV contrast at [facility] Oral contrast seen in the stomach through [...] a 61 y.o. 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 She is here for follow up fatigue, arthralgias. 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 Positive minor salivary [...] as a result of autonomic dysfunction. Fibromyalgia On gabapentin dicussed lyrica and or duloxetine in place of gabapentin HCQ - No SE/AE- u2d - eye [...] covid Orders Placed This Encounter Procedures ??? XR Hand Min 3 views Bilat (Generic) ??? CBC (with Diff) ??? Creatinine ??? Hepatic Function Panel ??? Cryoglobulin ??? C4 Complement ??? C3 Complement ??? Complement, Total ??? Protein Electrophoresis, serum ??? Protein Electrophoresis, urine, random ??? Free Light Chains, Serum ??? Urinalysis without microscopic ??? Rheumatoid factor, quant ??? Hepatitis B Surface Antigen ??? Hepatitis B Core Antibody, Total ??? Hepatitis B Surface Antibody ??? Hepatitis C Antibody ??? QuantiFERON-TB Gold ??? HIV Screen, 4th Generation ([facility]/CGP/APD/NLH) ??? Urinalysis without microscopic ??? Comprehensive metabolic panel (non-fasting) ??? Iron and TIBC ??? Ferritin ??? Vitamin B12 ??? Folate, serum ??? TSH ??? Vitamin D, 25-Hydroxy Return in about 2 weeks (around 11/08/2021). > 47 minutes spent in total documented in this encounter Plan of Treatment Upcoming Encounters Date Type Specialty Care Team Description 06/03/2022 Office Visit Rheumatology Benny Solano MD [facility] [address], [place] [address] (Wo rk) Scheduled Orders Name Type Priority Associated Diagnoses Order S chedule Cryoglobulin Lab Routine Dry eyes Expected: Sjogren's syndrome, with , unspecified organ Expires: 0 10/25/2022 involvement Sicca syndrome High risk medica tion use Inflammatory art hropathy Medication monitoring encounter Osteoarthritis of right ankle, unspecified osteoarthritis t ype Chronic pain of both shoulders C4 Complement Lab Routine Dry eyes Expected: Sjogren's syndrome, with , unspecified organ Expires: 0 10/25/2022 involvement Sicca syndrome High risk medica tion use Inflammatory art hropathy Medication monitoring encounter Osteoarthritis of right ankle, unspecified osteoarthritis t ype Chronic pain of both shoulders C3 Complement Lab Routine Dry eyes Expected: Sjogren's syndrome, with , unspecified organ Expires: 0 10/25/2022 involvement Sicca syndrome High risk medica tion use Inflammatory art hropathy Medication monitoring encounter Osteoarthritis of right ankle, unspecified osteoarthritis t ype Chronic pain of both shoulders Complement, Total Lab Routine Dry eyes Expected: Sjogren's syndrome, with , unspecified organ Expires: 0 10/25/2022 involvement Sicca syndrome High risk medica tion use Inflammatory art hropathy Medication monitoring encounter Osteoarthritis of right ankle, unspecified osteoarthritis t ype Chronic pain of both shoulders Protein Electrophoresis, Lab Routine Dry eye s Expected: urine, random Sjogren's syndrome, with unspecified organ (Approxima te), involvement Expires: 04/26/2022 Sicca syndrome High risk medica tion use Inflammatory art hropathy Medication monitoring encounter Osteoarthritis of right ankle, unspecified osteoarthritis t ype Chronic pain of both shoulders Free Light Chains, Serum Lab Routine Dry eye s Expected: Sjogren's syndrome, with , unspecified organ Expires: 0 04/26/2022 involvement Sicca syndrome High risk medica tion use Inflammatory art hropathy Medication monitoring encounter Osteoarthritis of right ankle, unspecified osteoarthritis t ype Chronic pain of both shoulders Urinalysis without Lab Routine Dry eyes Expected: microscopic Sjogren's syndrome, with unspecified organ (Approxima te), involvement Expires: 04/26/2022 Sicca syndrome High risk medica tion use Inflammatory art hropathy Medication monitoring encounter Osteoarthritis of right ankle, unspecified osteoarthritis t ype Chronic pain of both shoulders Rheumatoid factor, quant Lab Routine Dry eye s Expected: Sjogren's syndrome, with , unspecified organ Expires: 0 10/25/2022 involvement Sicca syndrome High risk medica tion use Inflammatory art hropathy Medication monitoring encounter Osteoarthritis of right ankle, unspecified osteoarthritis t ype Chronic pain of both shoulders Hepatitis B Surface Lab Routine Dry eyes Expected: Antigen Sjogren's syndrome, with , unspecified organ Expires: 0 10/25/2022 involvement Sicca syndrome High risk medica tion use Inflammatory art hropathy Medication monitoring encounter Osteoarthritis of right ankle, unspecified osteoarthritis t ype Chronic pain of both shoulders Hepatitis B Core Lab Routine Dry eyes Expected: Antibody, Total Sjogren's syndrome, with 10/25/2021, unspecified organ Expires: 0 10/25/2022 involvement Sicca syndrome High risk medica tion use Inflammatory art hropathy Medication monitoring encounter Osteoarthritis of right ankle, unspecified osteoarthritis t ype Chronic pain of both shoulders Hepatitis B Surface Lab Routine Dry eyes Expected: Antibody Sjogren's syndrome, with , unspecified organ Expires: 0 10/25/2022 involvement Sicca syndrome High risk medica tion use Inflammatory art hropathy Medication monitoring encounter Osteoarthritis of right ankle, unspecified osteoarthritis t ype Chronic pain of both shoulders Hepatitis C Antibody Lab Routine Dry eyes Expected: Sjogren's syndrome, with , unspecified organ Expires: 0 10/25/2022 involvement Sicca syndrome High risk medica tion use Inflammatory art hropathy Medication monitoring encounter Osteoarthritis of right ankle, unspecified osteoarthritis t ype Chronic pain of both shoulders QuantiFERON-TB Gold Lab Routine Dry eyes Expected: Sjogren's syndrome, with , unspecified organ Expires: 0 10/25/2022 involvement Sicca syndrome High risk medica tion use Inflammatory art hropathy Medication monitoring encounter Osteoarthritis of right ankle, unspecified osteoarthritis t ype Chronic pain of both shoulders HIV Screen, 4th Lab Routine Dry eyes Expected: Generation Sjogren's syndrome, with ([facility]/CGP/APD/NLH) unspecified organ (Uziel roximate), involvement Expires: 04/26/2022 Sicca syndrome High risk medica tion use Inflammatory art hropathy Medication monitoring encounter Osteoarthritis of right ankle, unspecified osteoarthritis t ype Chronic pain of both shoulders Urinalysis without Lab Routine Dry eyes Expected: microscopic Sjogren's syndrome, with unspecified organ (Approxima te), involvement Expires: 04/26/2022 Sicca syndrome High risk medica tion use Inflammatory art hropathy Medication monitoring encounter Osteoarthritis of right ankle, unspecified osteoarthritis t ype Chronic pain of both shoulders Comprehensive metabolic Lab Routine Dry eyes Expected: panel (non-fasting) Sjogren's syndrome, w ith 10/25/2021 unspecified organ (Approxima te), involvement Expires: 04/26/2022 Sicca syndrome High risk medica tion use Inflammatory art hropathy Medication monitoring encounter Osteoarthritis of right ankle, unspecified osteoarthritis t ype Chronic pain of both shoulders XR Hand Min 3 views Imaging Routine Sjogren's syndrome, w ith Expected: Bilat (Generic) unspecified organ 022, involvement Expires: 04/26/2022 Sicca syndrome Inflammatory art hropathy Pain in both hands Iron and TIBC Lab Routine Dry eyes Expected: Sjogren's syndrome, with unspecified organ (Approxima te), involvement Expires: 04/26/2022 Sicca syndrome High risk medica tion use Inflammatory art hropathy Medication monitoring encounter Osteoarthritis of right ankle, unspecified osteoarthritis t ype Chronic pain of both shoulders Pain in both hands Ferritin Lab Routine Dry eyes Expected: Sjogren's syndrome, with unspecified organ (Approxima te), involvement Expires: 04/26/2022 Sicca syndrome High risk medica tion use Inflammatory art hropathy Medication monitoring encounter Osteoarthritis of right ankle, unspecified osteoarthritis t ype Chronic pain of both shoulders Pain in both hands Vitamin B12 Lab Routine Dry eyes Expected: Sjogren's syndrome, with unspecified organ (Approxima te), involvement Expires: 04/26/2022 Sicca syndrome High risk medica tion use Inflammatory art hropathy Medication monitoring encounter Osteoarthritis of right ankle, unspecified osteoarthritis t ype Chronic pain of both shoulders Pain in both hands Folate, serum Lab Routine Dry eyes Expected: Sjogren's syndrome, with unspecified organ (Approxima te), involvement Expires: 04/26/2022 Sicca syndrome High risk medica tion use Inflammatory art hropathy Medication monitoring encounter Osteoarthritis of right ankle, unspecified osteoarthritis t ype Chronic pain of both shoulders Pain in both hands TSH Lab Routine Dry eyes Expected: Sjogren's syndrome, with unspecified organ (Approxima te), involvement Expires: 04/26/2022 Sicca syndrome High risk medica tion use Inflammatory art hropathy Medication monitoring encounter Osteoarthritis of right ankle, unspecified osteoarthritis t ype Chronic pain of both shoulders Pain in both hands Vitamin D, 25-Hydroxy Lab Routine Dry eyes Expected: Sjogren's syndrome, with , unspecified organ Expires: 0 10/25/2022 involvement Sicca syndrome High risk medica tion use Inflammatory art hropathy Medication monitoring encounter Osteoarthritis of right ankle, unspecified osteoarthritis t ype Chronic pain of both shoulders Pain in both hands TPMT Activity Profile, Lab Routine Dry eyes Expected: RBC Sjogren's syndrome, with , unspecified organ Expires: 0 04/26/2022 involvement Sicca syndrome High risk medica tion use Inflammatory art hropathy Medication monitoring encounter Osteoarthritis of right ankle, unspecified osteoarthritis t ype Chronic pain of both shoulders Pain in both bishop ds Low serum vitamin D documented as of this encounter Visit Diagnoses Diagnosis Dry eyes Tear film insufficiency, unspecified Sjogren's syndrome, with unspecified org an involvement Sicca syndrome High risk medication use Encounter for long-term (current) use of other medications Inflammatory arthropathy Arthropathy, unspecified, site unspecifi ed Medication monitoring encounter Encounter for therapeutic drug monitorin g Osteoarthritis of right ankle, unspecifi ed osteoarthritis type Chronic pain of both shoulders Pain in joint, shoulder region Pain in both hands Low serum vitamin D documented in this encounter Care Teams American History Teacher Relationship Specialty Start Date End Date Anthony Samaniego MD PCP - General 07/16/[address] [place] [address] documented as of this encounter
--- OUTSIDE RECORDS SUMMARY | 2022-05-13 01:45 | XMS_ITS | Encounter Summary ---
:1960 Author Organization [facility] [place] [address] Care Team Providers Name Role Phone Anthony Samaniego MD Primary Care Provider [phone] Reason for Visit Reason Onset Date Comments Medication Refill 12/18/2020 Encounter Details Date Type Department Care Team Description 12/18/2020 Refill Rheumatology at [facility] Benny Solano [place] [facility] [place] [id number] [place] [address] [phone] (Wo rk) Social History Tobacco Use Types [...] 06/03/2022 Office Visit Rheumatology Benny Solano MD [facility] [address] [place] [address] (Wo rk) documented as of this encounter Visit Diagnoses Not on filedocumented in this encounter Care Teams Marshmallow Runner Relationship Specialty Start Date End Date Anthony Samaniego MD PCP - General 07/16/[address] [place] [address] documented as of this encounter
--- OUTSIDE RECORDS SUMMARY | 2022-05-13 01:45 | XMS_ITS | Encounter Summary ---
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 Tender Pre-Telemedicine Phone Note [x] Patient not reached [] Patient reached and the following information was reviewed/obtained per protocol: [] Confirmed patient name and date of [] Confirmed telemedicine shaggy (Vidyo and Virtual Visit) is downloaded and functioning [] Confirmed location of patient - TeleVisit is taking place in [] [place] [] [place] [] If not on myD, working on signing up for myDH [] Confirmed has completed any pre-visit questionnaires [] If has not received required pre-visit questionnaires, send via myD [] Reviewed patient medications [] Documented self-reported vitals: [] Weight [] Height [] pulse recorded: [x] Other information or concerns LM asking Ai to call me back documented in this encounter Plan of Treatment Upcoming Encounters Date Type Specialty Care Team Description 06/03/2022 Office Visit Rheumatology Benny Solano MD [facility] [address] [place] [address] (Wo rk) documented as of this encounter Visit Diagnoses Not on filedocumented in this encounter Care Teams Physician Scientist Relationship Specialty Start Date End Date Anthony Samaniego MD PCP - General 07/16/[address] [place] [address] documented as of this encounter
--- OUTSIDE RECORDS SUMMARY | 2022-05-13 01:45 | XMS_ITS | Encounter Summary ---
:1960 Author Organization [facility] [place] [address] Care Team Providers Name Role Phone Anthony Samaniego MD Primary Care Provider Encounter Details Date Type Department Care Team Description 06/12/2019 Office Visit Rheumatology at [facility] Benny Solano, High risk medication use; [facility] Inflammatory arthropathy; [facility] Vitamin D deficiency; [place] [address] Center Dry eyes; [phone] [place], [place] [address] Dry mouth; [phone] Sjogren's syndr ome, with unspecified organ involvement (Work) Social History Tobacco Use Types Packs/Day Years [...] Sign Reading Time Taken Comments Blood Pressure 156/86 06/12/2019 9:22 AM EDT Pulse 72 06/12/2019 9:22 AM EDT Temperature 36.6 ??C (97.9 ??F) 06/12/2019 9:22 AM EDT Respiratory Rate - - Oxygen Saturation - - Inhaled Oxygen Concentration - - Weight 106.1 kg (234 lb) 06/12/2019 9:22 AM EDT Height 157.5 cm (5' 2) 06/12/2019 9:22 AM EDT Body Mass Index 42.8 06/12/2019 9:22 AM EDT documented in this encounter Progress Notes Benny Solano MD - 06/12/2019 9:30 AM EDT Rheumatology Follow-up Note Interval Hx Celica + lip BX SS THIS SHOULD HAVE BEEN AN hour visit but scheudling error Interval 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 Reportedly, here for evaluation of fatigue, arthralgias. Dry eyes not using anything Dry mouth being managed No SOB Achiness in the legs - with activity No swelling redness or warmth Takes ibuprofen 800 mg bid to help with pain in LE's (mostly in knees, ankles) from profession No swelling warmth redness of the joints Dry skin + fatigue ROS: General (-)fevers, (-)chills, (-)night sweats, (-)wt loss/gain. HEENT (-)head trauma, (-)vision change, (-)tinnitus, (-)epistaxis, (-)sore throat, (-)bleeding gums,(-)oral ulcers, (-)dry eyes, (-)dry mouth, (- )dysphagia, (-)GERD, (-)photo sensitivity, (-)Hair loss, (-)vertigo CVS (-)chest pain, (-)palpitations, (-)pedal edema, (-)PND, (-)orthopnea. Pulm (-)shortness of breath, (-)KAP[place]OR, (-)wheezes, (-)cough, (-)pleuritic pain GI (-)N/V, (-)abdominal pain, (-)emesis, (-)hematemesis, (-)hematochezia, (- )change in appetite (-)hematuria, (-)dysuria, (-)frequency, (-)nocturia, (-)genital ulcers MS (-)muscle weakness, (-)paralysis, (-)joint pain, (-)hx of arthritis Endo (-)thyroid disorders, (-)diabetes, (-)temperature intolerance. Neuro (-)focal weakness, (-)paresthesias, (-)gait instability. Skin (-)Raynaud's, (-) ulcers Psych (-) mood disorder. Past Medical History: Diagnosis Date ??? Celiac disease ??? Chronic constipation Patient Active Problem List Diagnosis Date Noted ??? Sjogren's syndrome 08/22/2018 ??? Celiac disease/sprue 08/26/2015 ??? Chronic constipation 08/26/2015 Past Surgical History: Procedure Laterality Date ??? OVARIAN CYST REMOVAL Right ??? PRO COLONOSCOPY, DIAGNOSTIC 02/06/2013 COLONOSCOPY, DIAGNOSTIC performed by Keyon Cantu MD at [facility] ??? PRO COLONOSCOPY, DIAGNOSTIC N/A 10/26/2016 COLONOSCOPY, DIAGNOSTIC performed by Keyon Cantu MD at [facility] ??? SALPINGO-OOPHORECTOMY Family History Problem Relation Age of Onset ??? Colorectal Cancer Mother ??? Colorectal Cancer Maternal Aunt Social History Socioeconomic History ??? Marital status: Spouse name: None ??? Number of children: None ??? Years of education: None ??? Highest education level: None Occupational History ??? None Social Needs ??? Financial resource strain: None ??? Food insecurity: Worry: None Inability: None ??? Transportation needs: Medical: None Non-medical: None Tobacco Use ??? Smoking status: Never Smoker ??? Smokeless tobacco: Never Used Substance and Sexual Activity ??? Alcohol use: Yes Alcohol/week: 1.0 standard drinks Types: 1 Shots of liquor per week Comment: once or twice a week MAYBE, not every week ??? Drug use: No ??? Sexual activity: None Lifestyle ??? Physical activity: Days per week: None Minutes per session: None ??? Stress: None Relationships ??? Social connections: Talks on phone: None Gets together: None Attends episcopalian service: None Active member of club or organization: None Attends meetings of clubs or organizations: None Relationship status: None ??? Intimate partner violence: Fear of current or ex partner: None Emotionally abused: None Physically abused: None Forced sexual activity: None Other Topics Concern ??? None Social History Narrative ??? None Current Outpatient Medications Medication Sig Dispense Refill ??? cholecalciferol, Vitamin D3, 50,000 unit Capsule Take 1 capsule by mouth once monthly 12 capsule0 ??? hydroxychloroquine (PLAQUENIL) 200 mg Tablet Take 2 tablets by mouth daily. 30 tablet 5 ??? cevimeline (EVOXAC) 30 mg Capsule Take 1 capsule by mouth 3 times daily. 90 capsule 3 ??? PREVIDENT 5000 DRY MOUTH 1.1 % Gel nightly. ??? DOCUSATE CALCIUM (STOOL SOFTENER ORAL) Take by mouth as needed. ??? ibuprofen (ADVIL;MOTRIN) 800 mg tablet Take 800 mg by mouth every 6 hours as needed. No current facility-administered medications for this visit. Current Outpatient Medications on File Prior to Visit Medication Sig Dispense Refill ??? [DISCONTINUED] hydroxychloroquine (PLAQUENIL) 200 mg Tablet Take 2 tablets by mouth daily. 28 tablet 0 ??? cevimeline (EVOXAC) 30 mg Capsule Take 1 capsule by mouth 3 times daily. 90 capsule 3 ??? PREVIDENT 5000 DRY MOUTH 1.1 % Gel nightly. ??? [DISCONTINUED] cholecalciferol, Vitamin D3, 50,000 unit Capsule Take 1 capsule by mouth once monthly 6 capsule 0 ??? DOCUSATE CALCIUM (STOOL SOFTENER ORAL) Take [...] smoker. 1 drink per week. 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 Family Hx: PGM had RA. Mother had brain aneurysms, from COPD. Also had colon cancer. Sister has vasculitis. ROS: Gen: no night sweats or fevers. Fatigue is worse (started one month before initial visit. Skin: no rashes, no hair loss Mouth: Dry mouth, no oral ulcers Eyes: no erythema or pain. Dry eyes. Lymph: no adenopathy Vascular: no Raynaud's, no digital ischemia Heart: no chest pain, palpitations Lungs: no dyspnea, cough, wheezing Abd: no pain, GERD, diarrhea, constipation. Abdominal pain soon after eating. She was treated with antibiotics for one month after positive hydrogen breath test (SIBO) about 2 years ago. : no dysuria, no flank pain. Increased frequency, urgency/ Musculoskeletal: per HPI Physical Exam: BP 156/86 Pulse 72 Temp 36.6 ??C (97.9 ??F) Ht 157.5 cm (5' 2) Wt 106.1 kg (234 lb) BMI 42.80 kg/m?? General: AAOx3, NAD HEENT: Mucous membranes are moist, no oral mucosal ulcerations, temporal artery non-palpable Neck: Supple, no lymphadenopathy, full range of motion. Cardiovascular: RR, (-)murmurs, rubs, or gallops. Lungs: Clear to auscultation bilaterally. (-)R/R/W Abdomen: Soft, non tender, non distended, + bowel sounds, no hepatosplenomegaly. Neuro: Alert and oriented x3. Cranial nerves II through XII grossly intact. - Strength 5/5 throughout, -Sensation to light touch is grossly normal throughout. DTRs are 2+ throughout. Toes down going bilaterally. Skin: (-)ulcers, (-)rash \ Vascular: Pulses are equal in all extremities. MSK Back: Non tender over the spine and costovertebral angles bilaterally. (-)[place] Extremities Shoulders: FROM, non-tender to palpation Elbows:FROM, (-)pain, (-)nodules Wrists: FROM, no swelling, non-tender Hands: No synovitis, no MCP compression tenderness, full claw and fist Hips: FROM, (-) fader (-ivania) Knees: (-)effusions, non-tender ROM Ankles: FROM, non-tender, no swelling Feet: no MTP compression tenderness Spine, shoulders, elbows, wrists, fingers, hips, knees and ankles; no active swelling, tenderness orsynovitis at any joint. No soft tissue nodules. FM tender points. 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 Reportedly, here for evaluation of fatigue, arthralgias. steoarthritis of the knees Fibromyalgia Delayed gastric emptying Peripheral neuropathy Vitamin D deficiency Pain in the legs - OA - possibly some anserine brusitis check vtamin D. OA noted on xr, PT add tylenol, tumeric and Champion 3 fatty acid continue Ibuprofen Sjogren's syndrome(SS) Serologies negative. Positive minor salivary gland biopsy for Sjogren's in May 2018 Dry eyes - seeing ophthomlogy in the next 2 months for HCQ Continue conservative measures including preservative-free artificial tears, flaxseed oil, Frequent sips of water, Biotene mouthwash/spray, prescription toothpaste. In September, Started cevimeline 30 mg tid (patient can start with once or twice and see how she does)discussed about the side effects. Patient taking twice [...] dysfunction. Fibromyalgia Discussed in detail about fibromyalgia. Endorses that she has read a lot about fibromyalgia. Recommend pool therapy, sleep study (restless leg syndrome, possible ESTEVAN given narrow oropharynx, poor nonrestorative sleep) Eventually fibromyalgia SMA. Discussed about possible medications such as amitriptyline, gabapentin, Lyrica, milnacipran. Gabapentin might be a better choice to consider given poor sleep, peripheral neuropathy. Endorses that she might consider CBD oil. She is on ceevlamine RTC in 4 months documented in this encounter Miscellaneous Notes Addendum Note - Ellen Mae - 06/12/2019 9:30 AM EDT Addended by: ELLEN MAE on: 06/12/2019 10:23 AM Modules accepted: Orders documented in this encounter Plan of Treatment Upcoming Encounters Date Type Specialty Care Team Description 06/03/2022 Office Visit Rheumatology Benny Solano MD [address] [facility] [address] [place], [place] [id number] (Wo rk) documented as of this encounter Procedures Procedure Name Priority Date/Time Associated Comments Diagnosis HC RANDOM URINE PEP Routine 06/12/2019 10:48 High risk Resu lts for this AM EDT medication use procedure are in Inflammatory the results arthropathy section. Vitamin D deficiency Dry eyes Dry mouth HC C-REACTIVE PROTEIN Routine 06/12/2019 10:46 High risk Re sults for this AM EDT medication use procedure are in Inflammatory the results arthropathy section. Vitamin D deficiency Dry eyes Dry mouth HEMOGRAM Routine 06/12/2019 10:46 High risk Results for this AM EDT medication use procedure are in Inflammatory the results arthropathy section. Vitamin D deficiency Dry eyes Dry mouth DIFFERENTIAL, AUTOMATED Routine 06/12/2019 10:46 High risk Results for this AM EDT medication use procedure are in Inflammatory the results arthropathy section. Vitamin D deficiency Dry eyes Dry mouth HC CREATININE Routine 06/12/2019 10:46 High risk Results fo r this AM EDT medication use procedure are in Inflammatory the results arthropathy section. Vitamin D deficiency Dry eyes Dry mouth HC CRYOGLOBULIN Routine 06/12/2019 10:46 High risk Results for this AM EDT medication use procedure are in Inflammatory the results arthropathy section. Vitamin D deficiency Dry eyes Dry mouth HC VENIPUNCTURE Routine 06/12/2019 10:46 High risk Results for this AM EDT medication use procedure are in Inflammatory the results arthropathy section. Vitamin D deficiency Dry eyes Dry mouth HC ESR-SEDIMENTATION Routine 06/12/2019 10:46 High risk Res ults for this RATE, BLOOD AM EDT medication use procedure are in Inflammatory the results arthropathy section. Vitamin D deficiency Dry eyes Dry mouth HC CBC,PLT & AUTO DIFF Routine 06/12/2019 10:46 High risk AM EDT medication use Inflammatory arthropathy Vitamin D deficiency Dry eyes Dry mouth HC RHEUMATOID FACTOR Routine 06/12/2019 10:46 High risk Res ults for this AM EDT medication use procedure are in Inflammatory the results arthropathy section. Vitamin D deficiency Dry eyes Dry mouth HC COMPLEMENT,C3 SERUM Routine 06/12/2019 10:46 High risk R esults for this AM EDT medication use procedure are in Inflammatory the results arthropathy section. Vitamin D deficiency Dry eyes Dry mouth HC COMPLEMENT C4, PLASMA Routine 06/12/2019 10:46 High risk Results for this AM EDT medication use procedure are in Inflammatory the results arthropathy section. Vitamin D deficiency Dry eyes Dry mouth HC URIC ACID, SERUM Routine 06/12/2019 10:46 High risk Resu lts for this AM EDT medication use procedure are in Inflammatory the results arthropathy section. Vitamin D deficiency Dry eyes Dry mouth HC SERUM PROT. Routine 06/12/2019 10:46 High risk Results f or this ELECTROPHORESIS AM EDT medication use procedure are in Inflammatory the results arthropathy section. Vitamin D deficiency Dry eyes Dry mouth HEPATIC FUNCTION PANEL Routine 06/12/2019 10:46 High risk R esults for this AM EDT medication use procedure are in Inflammatory the results arthropathy section. Vitamin D deficiency Dry eyes Dry mouth documented in this encounter Results Protein Electrophoresis, urine, random (06/12/2019 10:48 AM EDT) athologist Signature U Protein Ran <6 0 - 12 [facility] mg/dL [facility] Comment: rechecked-ds U Albumin 41 % total [facility] U Globulin 59 % total [facility] U M Band None Detected [facility] U PEP Comments See Note [facility] Comment: There is no evidence of clonal free ligh t chains in this patient's urine sample. Specimen Anatomical Collection Method Collection Time Receive d Time (Source) Location / / Volume Laterality Urine specimen 06/12/2019 10:48 9 (specimen) AM EDT 10:55 AM EDT Resulting Agency Comment Spec In Lab Benny Solano MD URINE ORDERABLES Performing Organization Address City/State/[place] [address] Differential, Automated (06/12/2019 10:46 AM EDT) athologist Signature Neutrophils % 56.1 % [facility] Neutr Abs (ANC) 2.62 1.70 - [facility] 6.10 [facility] x10(3)/[facility] LABORATORY Lymphocytes % 31.3 % [facility] Lymphocytes Abs 1.5 0.9 - 3.2 [facility] x10(3)/[facility]ORY Monocytes % 7.9 % [facility] Monocyte Abs 0.4 0.3 - 0.9 [facility] x10(3)/[facility]ORY Eosinophils % 3.6 % [facility] Eosinophils Abs 0.2 0.0 - 0.4 [facility] x10(3)/[facility] LABOR[facility]ORY Basophils % 0.9 % [facility] Basophils Abs 0.0 0.0 - 0.1 [facility] x10(3)/[facility] LAB[facility]ATORY Immature Gran % 0.20 % [facility] Comment: Immature granulocytes(IG's)percentage an d absolute count will include metamyelocytes, myelocytes, and promyelo cytes. Blood smears from CBCs yielding IG's will be scanned manually for concor dance. If this scan disagrees with the automated IG or if promyelocytes are not ed, a manual differential will be performed. Anisha Gran Abs 0.01 0.00 - 0.04 x10(3)/[facility] MAR Y [facility] Specimen Anatomical Collection Method Collection Time Receive d Time (Source) Location / / Volume Laterality Blood specimen 06/12/2019 10:46 9 (specimen) AM EDT 10:54 AM EDT Resulting Agency Comment Spec In Lab Benny Solano MD HEMATOLOGY ORDERABLES Performing Organization Address City/State/[place] [address] (ABNORMAL) Hemogram (06/12/2019 10:46 AM EDT) Patholo gist Method Time Signature WBC 4.7 4.0 - 9.5 [facility] x10(3)/[facility] LAB[facility]ORY RBC 3.71 (L) 4.00 - [facility] 5.21 [facility] x10(6)/[facility] LABORATORY Hemoglobin 12.4 11.7 - [facility] [place] 15.5 gm/dL [facility] Hematocrit 37.8 35.7 - [place] [place] 45.8 % [facility] MCV 101.9 (H) 82.6 - [place] 94.4 [facility] LABORATORY MCH 33.4 (H) 27.1 - [place] [place] 32.0 pg [facility] MCHC 32.8 31.7 - [facility] [place] 35.0 gm/dL [facility] Platelets 250 145 - 357 [facility] x10(3)/[facility] LABORATORY RDWSD 51.1 (H) 37.0 - [facility] [place] 46.0 [facility] LAB[facility]ORY RDWCV 13.3 11.5 - [facility] 14.1 % [facility] MPV 10.4 7.6 - 12.9 [facility] LABORATORY nRBC % Auto 0.0 % [facility] nRBC Abs Auto 0.000 0.000 - [place] 0.000 [facility] x10(3)/[facility] LABORATORY Specimen Anatomical Collection Method Collection Time Receive d Time (Source) Location / / Volume Laterality Blood specimen 06/12/2019 10:46 9 (specimen) AM EDT 10:54 AM EDT Resulting Agency Comment Spec In Lab Benny Solano MD HEMATOLOGY ORDERABLES Performing Organization Address City/[facility]/ZIP [place] [address] CRP, acute inflammation (06/12/2019 10:46 AM EDT) P athologist Signature CRP 2.3 <=4.9 mg/L [facility] Specimen Anatomical Collection Method Collection Time Receive d Time (Source) Location / / Volume Laterality Blood specimen 06/12/2019 10:46 9 (specimen) AM EDT 10:53 AM EDT Resulting Agency Comment Spec In Lab Benny Solano MD CHEMISTRY ORDERABLES Performing Organization Address City/[facility]/ZIP [place] [address] Hepatic Function Panel (06/12/2019 10:46 AM EDT) P athologist Signature Total Protein 7.7 6.1 - 8.0 [facility] [place] gm/dL [facility] Albumin 4.3 3.2 - 5.2 [facility] [place] gm/dL [facility] AST 16 0 - 30 [facility] unit/L [facility] ALT 9 0 - 30 [facility] unit/L [facility] Alk Phos 96 35 - 105 [facility] [place] unit/L [facility] Total 0.3 0.2 - 1.3 [facility] [place] Bilirubin mg/dL [facility] Bili, Direct 0.1 0.0 - 0.3 [facility] [place] mg/dL [facility] Specimen Anatomical Collection Method Collection Time Receive d Time (Source) Location / / Volume Laterality Blood specimen 06/12/2019 10:46 9 (specimen) AM EDT 10:53 AM EDT Resulting Agency Comment Spec In Lab Benny Solano MD CHEMISTRY ORDERABLES Performing Organization Address City/State/[place] [address] Creatinine (06/12/2019 10:46 AM EDT) P athologist Signature Creatinine 0.91 0.70 - [facility] [place] 1.20 mg/dL [facility] Estimated GFR 69 >=60 [facility] mL/min/1.7 [facility] 3 [facility] Comment: The eGFR was calculated using the CKD-EP I equation. As with all creatinine based estimates of kidney function, eGFR values calculated with the CKD-EPI equation are not accurate in patients wi th acute kidney failure, extremes of body mass or the acutely ill. [email or web address] eGFR 80 >=60 mL/min/1.73 m?? [facility] Comment: The eGFR was calculated using the CKD-EP I equation. As with all creatinine based estimates of kidney function, eGFR values calculated with the CKD-EPI equation are not accurate in patients wi th acute kidney failure, extremes of body mass or the acutely ill. [email or web address] Specimen Anatomical Collection Method Collection Time Receive d Time (Source) Location / / Volume Laterality Blood specimen 06/12/2019 10:46 9 (specimen) AM EDT 10:53 AM EDT Resulting Agency Comment Spec In Lab Benny Solano MD CHEMISTRY ORDERABLES Performing Organization Address City/State/ZIP [place] [address] Sedimentation rate (06/12/2019 10:46 AM EDT) P athologist Signature Sed Rate 18 0 - 20 [facility] [place] mm/hr [facility] Specimen Anatomical Collection Method Collection Time Receive d Time (Source) Location / / Volume Laterality Blood specimen 06/12/2019 10:46 9 (specimen) AM EDT 10:54 AM EDT Resulting Agency Comment Spec In Lab Benny Solano MD HEMATOLOGY ORDERABLES Performing Organization Address City/[facility]/ZIP [place] [address] Uric acid (06/12/2019 10:46 AM EDT) P athologist Signature Uric Acid 4.3 2.5 - 6.5 [facility] Specimen Anatomical Collection Method Collection Time Receive d Time (Source) Location / / Volume Laterality Blood specimen 06/12/2019 10:46 9 (specimen) AM EDT 10:53 AM EDT Resulting Agency Comment Spec In Lab Benny Solano MD CHEMISTRY ORDERABLES Performing Organization Address City/[facility]/ZIP [place] [address] Vitamin D, 25-Hydroxy (06/12/2019 10:46 AM EDT) P athologist Signature 25-OH Vit D 48 30 - 100 [facility] Total ng/mL [facility] Comment: As of 2019, 25-hydroxyvitamin D lesli ting has moved from the [place] to the Marcelle Bridget. No substantial change in me asured values is expected. Specimen Anatomical Collection Method Collection Time Receive d Time (Source) Location / / Volume Laterality Blood specimen 06/12/2019 10:46 9 (specimen) AM EDT 10:53 AM EDT Resulting Agency Comment Spec In Lab Benny Solano MD CHEMISTRY ORDERABLES Performing Organization Address City/State/ZIP Code Phon e Number [address] Protein Electrophoresis, serum (06/12/2019 10:46 AM EDT) Patholo gist Method Time Signature Total Prot 7.2 6.1 - 8.0 [facility] Elec gm/dL [facility] Albumin Elect 4.45 3.60 - 6.00 [facility] gm/dL [facility] Alpha1-Globul 0.17 0.10 - 0.30 [facility] in gm/dL [facility] Alpha2-Globul 0.83 0.40 - 0.90 J[facility] in gm/dL [facility] Beta Globulin 0.76 0.50 - 1.00 [facility] gm/dL [facility] Gamma 0.99 0.50 - 1.30 [facility] Globulin gm/dL [facility] M1 Band None None [facility] Detected Detected [facility] Specimen Anatomical Collection Method Collection Time Receive d Time (Source) Location / / Volume Laterality Blood specimen 06/12/2019 10:46 9 (specimen) AM EDT 10:54 AM EDT Resulting Agency Comment Spec In Lab Benny Solano MD CHEMISTRY ORDERABLES Performing Organization Address City/[facility]/ZIP [place] [address] Rheumatoid factor, quant (06/12/2019 10:46 AM EDT) P athologist Signature RF <10 <=14 IU/mL [facility] Specimen Anatomical Collection Method Collection Time Receive d Time (Source) Location / / Volume Laterality Blood specimen 06/12/2019 10:46 9 (specimen) AM EDT 10:53 AM EDT Resulting Agency Comment Spec In Lab Benny Solano MD IMMUNOLOGY ORDERABLES Performing Organization Address City/State/ZIP Code Phon e Number [address] Cryoglobulin (06/12/2019 10:46 AM EDT) P athologist Signature Cryoglob See Note [facility] Comment: Cryoglobulins negative at 24 and 72 hour s. Identification of cryoglobulins is depen dent upon appropriate sample handling. False negative results may occur if the proper sample handling steps are not followed. This test was developed and its performa nce characteristics determined by [facility]. It h as not been cleared or approved by the FDA. The laboratory is regulated under [place] as qualified to perform high-complexity testing. This test is us ed for clinical purposes. It should not be regarded as investigational or for re search. Specimen Anatomical Collection Method Collection Time Receive d Time (Source) Location / / Volume Laterality Blood specimen 06/12/2019 10:46 9 (specimen) AM EDT 10:52 AM EDT Resulting Agency Comment Spec In Lab Benny Solano MD CHEMISTRY ORDERABLES Performing Organization Address City/State/ZIP Code Phon e Number [address] C4 Complement (06/12/2019 10:46 AM EDT) P athologist Signature C4 Complement 26 10 - 40 [facility] Specimen Anatomical Collection Method Collection Time Receive d Time (Source) Location / / Volume Laterality Blood specimen 06/12/2019 10:46 9 (specimen) AM EDT 10:53 AM EDT Resulting Agency Comment Spec In Lab Benny Solano MD CHEMISTRY ORDERABLES Performing Organization Address City/State/ZIP Code Phon e Number [address] C3 Complement (06/12/2019 10:46 AM EDT) P athologist Signature C3 Complement 134 90 - 180 [facility] mg/dL [facility] Specimen Anatomical Collection Method Collection Time Receive d Time (Source) Location / / Volume Laterality Blood specimen 06/12/2019 10:46 9 (specimen) AM EDT 10:53 AM EDT Resulting Agency Comment Spec In Lab Benny Solano MD CHEMISTRY ORDERABLES Performing Organization Address City/State/ZIP Code Phon e Number [place] [id number] documented in this encounter Visit Diagnoses Diagnosis High risk medication use Encounter for long-term (current) use of other medications Inflammatory arthropathy Arthropathy, unspecified, site unspecifi ed Vitamin D deficiency Unspecified vitamin D deficiency Dry eyes Tear film insufficiency, unspecified Dry mouth Disturbance of salivary secretion Sjogren's syndrome, with unspecified org an involvement documented in this encounter Care Teams Die Tester Relationship Specialty Start Date End Date Anthony Samaniego MD PCP - General 07/16/[address] [place] [address] documented as of this encounter
--- OUTSIDE RECORDS SUMMARY | 2022-05-13 01:45 | XMS_ITS | Encounter Summary ---
:1960 Author Organization [facility] [place] [address] Care Team Providers Name Role Phone Anthony Samaniego MD Primary Care Provider [phone] Reason for Visit Reason Onset Date Comments Medication Refill 08/05/2019 Encounter Details Date Type Department Care Team Description 08/05/2019 Refill Rheumatology at [facility] Racheal Maharaj, [facility] [place] [address] Social History Tobacco Use Types Packs/Day [...] Office Visit Rheumatology Benny Solano MD [facility] [address] [place], [place] [address] (Wo rk) documented as of this encounter Visit Diagnoses Not on filedocumented in this encounter Care Teams Applications Sales Representative Relationship Specialty Start Date End Date Anthony Samaniego MD PCP - General 07/16/[address] [place] [address] documented as of this encounter
--- OUTSIDE RECORDS SUMMARY | 2022-05-13 01:45 | XMS_ITS | Encounter Summary ---
:1960 Author Organization [facility] [place] [address] Care Team Providers Name Role Phone Anthony Samaniego MD Primary Care Provider [phone] Encounter Details Date Type Department Care Team Description 06/13/2019 Orders Only Rhe[place]ology [place] [facility] Benny Solano MD Macrocytosis [facility] [place] [address] [place] [address] [phone] (Wo rk) Social History Tobacco Use Types [...] MD [facility] [place], [place] [address] (Wo rk) documented as of this encounter Results Vitamin B12 (10/09/2019 11:01 AM EST) P athologist Signature Vitamin B-12 592 232 - 1,708 [facility] pg[facility]mL [facility] Specimen Anatomical Collection Method Collection Time Receive d Time (Source) Location / / Volume Laterality Blood specimen 10/09/2019 11:01 0 (specimen) AM EST 11:24 AM EST Resulting Agency Comment Spec In Lab Benny Solano MD CHEMISTRY ORDERABLES Performing Organization Address City/State/[place] [address] documented in this encounter Visit Diagnoses Diagnosis Macrocytosis Other specified diseases of blood and bl ood-forming organs documented in this encounter Care Teams Air Conditioning Engineer Relationship Specialty Start Date End Date Anthony Samaniego MD PCP - General 07/16/[address] [place] [address] documented as of this encounter
--- OUTSIDE RECORDS SUMMARY | 2022-05-13 01:45 | XMS_ITS | Encounter Summary ---
:1960 Author Organization [facility] [place] [address] Care Team Providers Name Role Phone Anthony Samaniego MD Primary Care Provider [phone] Reason for Visit Reason Comments Medication Refill Encounter Details Date Type Department Care Team Description 10/13/2019 Refill Rheumatology at [facility] [place] [facility] [place] Benny Solano MD Dry eyes; [facility] D zia [facility] Sjogren's syndrome, [place] [address] [place], [place] [address] (Wo rk) Social History Tobacco [...] Benny Solano MD [facility] er [place], [place] [address] (Wo rk) documented as of this encounter Visit Diagnoses Diagnosis Dry eyes Tear film insufficiency, unspecified Sjogren's syndrome, with unspecified org an involvement documented in this encounter Care Teams Plate Furnace Operator Relationship Specialty Start Date End Date Anthony Samaniego MD PCP - General 07/16/[address] [place] [address] documented as of this encounter
--- OUTSIDE RECORDS SUMMARY | 2022-05-13 01:45 | XMS_ITS | Encounter Summary ---
:1960 Author Organization [facility] [place] [address] Care Team Providers Name Role Phone Anthony Samaniego MD Primary Care Provider [phone] Encounter Details Date Type Department Care Team Description 06/08/2021 Telephone Rheumatology at [facility] [place] [address] Social History Tobacco Use Types Packs/Day [...] Notes Telephone Encounter - Fabiola He - 06/08/2021 3:23 PM EDT VM left with pt to notify them that labs need to be completed per provider documented in this encounter Plan of Treatment Upcoming Encounters Date Type Specialty Care Team Description 06/03/2022 Office Visit Rheumatology Benny Solano MD [facility] [address] [place] [address] (Wo rk) documented as of this encounter Visit Diagnoses Not on filedocumented in this encounter Care Teams Block Setter Gypsum Relationship Specialty Start Date End Date Anthony Samaniego MD PCP - General 07/16/[address] [place] [address] documented as of this encounter
--- OUTSIDE RECORDS SUMMARY | 2022-05-13 01:45 | XMS_ITS | Encounter Summary ---
:1960 Author Organization [facility] [place] [address] Care Team Providers Name Role Phone Anthony Samaniego MD Primary Care Provider [phone] Reason for Visit Reason Comments Medication Refill Encounter Details Date Type Department Care Team Description 11/16/2020 Refill Rheumatology at [facility] Benny Solano MD High risk medication use; [facility] Inflammatory arthropathy; [place] [address] Dry eyes; [phone] [place], [place] [address] Dry mouth [phone] (Wo rk) Social History Tobacco Use Types [...] 06/03/2022 Office Visit Rheumatology Benny Solano MD [facility] er [place], [place] [address] (Wo rk) documented as of this encounter Visit Diagnoses Diagnosis High risk medication use Encounter for long-term (current) use of other medications Inflammatory arthropathy Arthropathy, unspecified, site unspecifi ed Dry eyes Tear film insufficiency, unspecified Dry mouth Disturbance of salivary secretion documented in this encounter Care Teams Therapeutic Massage Technician Relationship Specialty Start Date End Date Anthony Samaniego MD PCP - General 07/16/[address] [place] [address] documented as of this encounter
--- OUTSIDE RECORDS SUMMARY | 2022-05-13 01:45 | XMS_ITS | Encounter Summary ---
:1960 Author Organization [facility] [place] [address] Care Team Providers Name Role Phone Anthony Samaniego MD Primary Care Provider [phone] Encounter Details Date Type Department Care Team Description 06/28/2021 TH Visit Rheumatology at [facility] [place] Benny Solano, Medication monitoring encoun ter; (TeleHealth) [facility] High risk medication use; [facility] Dry mouth; [facility] Dry eyes; [address] [place], [place] Sicca syndrome; [phone] Sjogren's syndrome, with unspecified org an involvement; [phone] Osteoarthritis of right ankle, unspecified osteoarthritis type; (Work) Chronic pain in right shoulder Social History Tobacco Use Types Packs/Day Years [...] encounter Progress Notes Benny Solano MD - 06/28/2021 7:30 AM EDT Rheumatology Follow-up Note Rheum hx Celiac Dz Sj??gren???s Syndrome + lip BX SS - on HCQ Trialed turmeric CC peñaloza and knee pain Interval Hx: Ai Morrison 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 She had some Right shoulder pain daily had injections after being seen by PCP bursitis. She is Ibuprofen for the right 2 right shoulder.She has some problems when she hear popping , every day. Several months of shoulder of shoulder pain. She has to add tylenol She lost 53 pounds treamll. Eating low carb Diest joint are doing well Dry skin over peñaloza prutitic tired skin creams without benefit has not seen dermaology Joint pop a lot when it pops on eft shoulder while doing hairs Feels doing quie well on HCQ Fatigue imporved Schedule for eye exam Hs Fu with GI do coloscopy YMI324.8, ROS: PMH: Celiac disease biopsy-proven, follows with [...] smoker. 1 drink per week. 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 Family Hx: PGM [...] out of chair from seated position . 18/18 FM tender points. Sensitive to [...] (40-104) Folic acid vitamin B12 AME ([employer]) [employer] 0.9 dsDNA CCP Rx C3-C4 SPEP TSH [...] pelvis with oral and IV contrast at [facility] Oral contrast seen in the [...] a 61 y.o. 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 She is here for follow up fatigue, arthralgias. She had labs at [facility] which she read off to me Macrocytosis w/o anemia and low RBC- unclear etiology but no anemia advised to ofollow up with PCP- Thyroid, ETOH, [id number], MDS and emds Shoulder pain right Dx bursitis by PCP- s/p oinjection over the summer not imporving vani dresser- occupational issues- consider advanced imaging - PT- eval [facility] untreated OA Sjogren's syndrome(SS) Serologies negative. Positive minor salivary [...] dysfunction. Fibromyalgia She is doing quite well 0 since 60 lb weight loss HCQ - No SE/AE- u2d - eye [...] complete labs and eye examinations as requested. Orders Placed This Encounter Procedures ??? Cryoglobulin ??? C4 Complement ??? C3 Complement ??? Rheumatoid factor, quant ??? CBC (with Diff) ??? Creatinine ??? Hepatic Function Panel ??? Sedimentation rate ??? Protein Electrophoresis, serum Return in about 3 months (around 09/28/2021). > 42 minutes spent in total documented in this encounter Plan of Treatment Upcoming Encounters Date Type Specialty Care Team Description 06/03/2022 Office Visit Rheumatology Benny Solano MD [facility] er [address], [place] [address] (Wo rk) Scheduled Orders Name Type Priority Associated Diagnoses Order S chedule C3 Complement Lab Routine Medication monit oring encounter Expected: 06/28/2021, High risk medica tion use Expires: 06/28/2022 Dry mouth Dry eyes Sicca syndrome Sjogren's syndrome, with unspecified orga n involvement Osteoarthritis of right ankl e, unspecified oste oarthritis type Chronic pain in right should er documented as of this encounter Visit Diagnoses Diagnosis Medication monitoring encounter Encounter for therapeutic drug monitorin g High risk medication use Encounter for long-term (current) use of other medications Dry mouth Disturbance of salivary secretion Dry eyes Tear film insufficiency, unspecified Sicca syndrome Sjogren's syndrome, with unspecified org an involvement Osteoarthritis of right ankle, unspecifi ed osteoarthritis type Chronic pain in right shoulder Pain in joint, shoulder region documented in this encounter Care Teams Audit Machine Operator Relationship Specialty Start Date End Date Anthony Samaniego MD PCP - General 07/16/[address] [place] [address] documented as of this encounter
--- OUTSIDE RECORDS SUMMARY | 2022-05-13 01:45 | XMS_ITS | Encounter Summary ---
:1960 Author Organization [facility] [address] Care Team Providers Name Role Phone Anthony Samaniego MD Primary Care Provider Reason for Referral Physical Therapy (Routine) - Closed Specialty Diagnoses / Procedures Referred By Contact Refer red To Contact Diagnoses Myofascial pain dysfunction syndrome [place] [address] Referral ID Status Reason Start Date Expiration Date Visits V isits Requested Authorized [id number] Closed Evaluate and 10/09/2019 04/06/2020 12 12 Treat hysical Therapy (Routine) - Closed Specialty Diagnoses / Procedures Referred By Contact Refer red To Contact Physical Therapy Diagnoses Chronic pain of both knees Benny Solano MD [place], Jennifer [id number] [place] [address] Phone: Fax: Referral ID Status Reason Start Date Expiration Date Visits V isits Requested Authorized [id number] Closed Evaluate and 10/09/2019 04/06/2020 12 12 Treat Encounter Details Date Type Department Care Team Description 10/09/2019 Office Visit Rheumatology at [facility] Benny Solano, Sjogren's syndrome, with uns pecified organ involvement; [facility] Celiac disease/sprue; [facility] Medication monitoring encoun ter; [place] [address] Center Pain in peñaloza, unspecified laterality; [phone] [place] High risk medic ation use; [id number] Osteoarthritis, unspecified osteoarthrit is type, unspecified site; [phone] Chronic pain of both knees; (Work) Myofascial pain dysfunction syndrome; [phone] Macrocytosis; (Fax) Inflammatory ar thropathy; Vitamin D defic iency; Dry eyes; Dry mouth Social History Tobacco [...] Sign Reading Time Taken Comments Blood Pressure 136/70 10/09/2019 9:54 AM EST Pulse 66 10/09/2019 9:54 AM EST Temperature 36.5 ??C (97.7 ??F) 10/09/2019 9:54 AM EST Respiratory Rate - - Oxygen Saturation 100% 10/09/2019 9:54 AM EST Inhaled Oxygen Concentration - - Weight 107 kg (236 lb) 10/09/2019 9:54 AM EST Height 157.5 cm (5' 2) 10/09/2019 9:54 AM EST Body Mass Index 43.16 10/09/2019 9:54 AM EST documented in this encounter Progress Notes Benny Solano MD - 10/09/2019 10:00 AM EST Rheumatology Follow-up Note Rheum hx Celiac Dz Sj??gren???s Syndrome + lip BX SS - on HCQ Trialed turmeric CC peñaloza and knee pain Interval Hx: Ai Morrison is a 59 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 Reportedly, here for evaluation of fatigue, arthralgias. The fatigue continues but complain about bilaterla peñaloza pain or bone pains. No swelling, rendess orwamrth of the joints. Dry eyes not using anything. Dry mouth being managed. Dry skinNo SOB She is on HCQ, gabapentin and ibuprofen 800 mg bid to help with pain in LE's (mostly in knees, ankles) from profession ROS: General (-)fevers, (-)chills, (-)night sweats, (-)wt [...] DIAGNOSTIC performed by Keyon Cantu MD at [facility] ??? PRO COLONOSCOPY, DIAGNOSTIC N/A 10/26/2016 COLONOSCOPY, DIAGNOSTIC performed by Keyon Cantu MD at [facility] ??? SALPINGO-OOPHORECTOMY Family History Problem Relation Age of Onset ??? Colorectal Cancer Mother ??? Colorectal Cancer Maternal Aunt Social History Socioeconomic History ??? Marital status: Spouse name: Not on file ??? Number of children: Not on file ??? Years of education: Not on file ??? Highest education level: Not on file Occupational History ??? Not on file Social Needs ??? Financial resource strain: Not on file ??? Food insecurity: Worry: Not on file Inability: Not on file ??? Transportation needs: Medical: Not on file Non-medical: Not on file Tobacco Use ??? Smoking status: Never Smoker ??? Smokeless tobacco: Never Used Substance and Sexual Activity ??? Alcohol use: Yes Alcohol/week: 1.0 standard drinks Types: 1 Shots of liquor per week Comment: once or twice a week MAYBE, not every week ??? Drug use: No ??? Sexual activity: Not on file Lifestyle ??? Physical activity: Days per week: Not on file Minutes per session: Not on file ??? Stress: Not on file Relationships ??? Social connections: Talks on phone: Not on file Gets together: Not on file Attends lutheran service: Not on file Active member of club or organization: Not on file Attends meetings of clubs or organizations: Not on file Relationship status: Not on file ??? Intimate partner violence: Fear of current or ex partner: Not on file Emotionally abused: Not on file Physically abused: Not on file Forced sexual activity: Not on file Other Topics Concern ??? Not on file Social History Narrative ??? Not on file Current Outpatient Medications Medication Sig Dispense Refill ??? hydroxychloroquine (PLAQUENIL) 200 mg Tablet Take 2 tablets by mouth daily. 180 tablet 3 ??? cevimeline (EVOXAC) 30 mg Capsule Take 1 capsule by mouth 3 times daily. 90 capsule 3 ??? gabapentin (NEURONTIN) 300 mg Capsule Take 1 capsule by mouth 3 times daily. Start with 1 tab atnight every 2 weeks will add a dose to breakfast and lunch until 3x a day 90 capsule 1 ??? cholecalciferol, Vitamin D3, 50,000 unit Capsule [...] to Visit Medication Sig Dispense Refill ??? hydroxychloroquine (PLAQUENIL) 200 mg Tablet Take 2 tablets by mouth daily. 180 tablet 3 ??? cevimeline (EVOXAC) 30 mg Capsule Take 1 capsule by mouth 3 times daily. 90 capsule 3 ??? gabapentin (NEURONTIN) 300 mg Capsule Take 1 capsule by mouth 3 times daily. Start with 1 tab atnight every 2 weeks will add a dose to breakfast and lunch until 3x a day 90 capsule 1 ??? cholecalciferol, Vitamin D3, 50,000 unit Capsule [...] 1 drink per week. 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 Family Hx: PGM had RA. Mother had brain aneurysms, from COPD. Also had colon cancer. Sister has vasculitis. ROS: Physical Exam: BP 136/70 Pulse 66 Temp 36.5 ??C (97.7 ??F) (Oral) Ht 157.5 cm (5' 2) Wt 107 kg (236 lb) SpO2 100% BMI 43.16 kg/m?? General: , NAD HEENT: Mucous membranes [...] at any joint. No soft tissue nodules. 18/18 FM tender points. 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 Reportedly, here for evaluation of fatigue, arthralgias. steoarthritis of the knees Tibial TTP possibly Ostemalaci 2.2 vit d with hx of celic and or Pain in the legs - anserine brusitis Fibromyalgia Delayed gastric emptying Peripheral neuropathy Vitamin D deficiency check vtamin D. OA noted on xr, PT add tylenol, tumeric and Charlotte 3 fatty acid continue Ibuprofen Sjogren's syndrome(SS) [...] is on ceevlamine RTC in 4 months Orders Placed This Encounter Procedures ??? XR Tibia Fibula Bilat (Generic) ??? Vitamin D, 25-Hydroxy ??? Albumin Level ??? Creatinine ??? Hepatic Function Panel ??? CBC (with Diff) ??? CRP, acute inflammation ??? Sedimentation rate ??? Hemogram ??? Differential, Automated ??? Referral to Physical Therapy ??? Referral to Physical Therapy documented in this encounter Plan of Treatment Upcoming Encounters Date Type Specialty Care Team Description 06/03/2022 Office Visit Rheumatology Benny Solano MD [facility] [address], [place] [address] (Wo rk) Scheduled Referrals Name Type Priority Associated Diagnoses Order S chedule Referral to Outpatient Referral Routine Chronic pain of both Ordered: Physical Therapy knees 10/09/2019 Referral to Outpatient Referral Routine Myofascial pain Order ed: Physical Therapy dysfunction syndrome documented as of this encounter Procedures Procedure Name Priority Date/Time Associated Diagnosis Comme nts HC C-REACTIVE PROTEIN Routine 10/09/2019 11:01 Sjogren's syndr ome, Results for this AM EST with unspecified procedure a re in organ involvemen t the results Celiac disease/s prue section. Medication monitoring encou nter Pain in peñaloza, unspecified laterality High risk medication use HEMOGRAM Routine 10/09/2019 11:01 Sjogren's syndrome, Resu lts for this AM EST with unspecified procedure a re in organ involvemen t the results Celiac disease/s prue section. Medication monitoring encou nter Pain in peñaloza, unspecified laterality High risk medication use DIFFERENTIAL, Routine 10/09/2019 11:01 Sjogren's syndrome, Res ults for this AUTOMATED AM EST with unspecified procedure a re in organ involvemen t the results Celiac disease/s prue section. Medication monitoring encou nter Pain in peñaloza, unspecified laterality High risk medication use HC CREATININE Routine 10/09/2019 11:01 Sjogren's syndrome, Res ults for this AM EST with unspecified procedure a re in organ involvemen t the results Celiac disease/s prue section. Medication monitoring encou nter Pain in peñaloza, unspecified laterality High risk medication use HC VENIPUNCTURE Routine 10/09/2019 11:01 Sjogren's syndrome, R esults for this AM EST with unspecified procedure a re in organ involvemen t the results Celiac disease/s prue section. Medication monitoring encou nter Pain in peñaloza, unspecified laterality High risk medication use HC ESR-SEDIMENTATION Routine 10/09/2019 11:01 Sjogren's syndro me, Results for this RATE, BLOOD AM EST with unspecified procedure a re in organ involvemen t the results Celiac disease/s prue section. Medication monitoring encou nter Pain in peñaloza, unspecified laterality High risk medication use HC CBC,PLT & AUTO Routine 10/09/2019 11:01 Sjogren's syndrome, DIFF AM EST with unspecified organ involvemen t Celiac disease/s prue Medication monitoring encou nter Pain in peñaloza, unspecified laterality High risk medication use HC URIC ACID, SERUM Routine 10/09/2019 11:01 High risk medicat ion Results for this AM EST use procedure are in Inflammatory the results arthropathy section. Vitamin D defici ency Dry eyes Dry mouth HC VITAMIN B12 SERUM Routine 10/09/2019 11:01 Macrocytosis Res ults for this AM EST procedure are i n the results section. HEPATIC FUNCTION Routine 10/09/2019 11:01 Sjogren's syndrome, Results for this PANEL AM EST with unspecified procedure a re in [...] For questions regarding this report, please contact [facility] number below. ? Electronically signed by: Charlie reynoso [facility] ([phone]), at 10/09/2019 11:53 AM Narrative 10/09/2019 11:53 AM EST EXAMINATION: XR [...] this report, please contact e number below. Electronically signed by: Charlie reynoso [facility] ([phone]), at 10/09/2019 11:53 AM Benny Solano MD IMG DX ORDERABLES Differential, Automated (10/09/2019 11:01 AM EST) P athologist Signature Neutrophils % 56.6 % [facility] Neutr Abs (ANC) 2.81 1.70 - [facility] 6.10 [facility] x10(3)/[facility] LABORATORY Lymphocytes % 31.7 % [facility] Lymphocytes Abs 1.6 0.9 - 3.2 [facility] x10(3)/[facility] LABORATORY Monocytes % 7.9 % [facility] Monocyte Abs 0.4 0.3 - 0.9 [facility] x10(3)/[facility] LABORATORY Eosinophils % 2.6 % [facility] Eosinophils Abs 0.1 0.0 - 0.4 [facility] x10(3)/[facility] LABORATORY Basophils % 1.0 % [facility] Basophils Abs 0.0 0.0 - 0.1 [facility] x10(3)/[facility] LABORATORY Immature Gran % 0.20 % [facility] Comment: Immature granulocytes(IG's)percentage an d absolute count will include metamyelocytes, myelocytes, and promyelo cytes. Blood smears from CBCs yielding IG's will be scanned manually for concor dance. If this scan disagrees with the automated IG or if promyelocytes are not ed, a manual differential will be performed. Anisha Gran Abs 0.01 0.00 - 0.04 x10(3)/[facility] LABORATORY Specimen Anatomical Collection Method Collection Time Receive d Time (Source) Location / / Volume Laterality Blood specimen 10/09/2019 11:01 0 (specimen) AM EST 11:10 AM EST Resulting Agency Comment Spec In Lab Benny Solano MD HEMATOLOGY ORDERABLES Performing Organization Address City/State/ZIP Code Phon e Number [place] [id number] [facility] (ABNORMAL) Hemogram (10/09/2019 11:01 AM EST) Analysis Performed At Patho logist Time Signature WBC 5.0 4.0 - 9.5 JOSELO Xirrus x10(3)/[facility] LABORATORY RBC 3.98 (L) 4.00 - J[place]LEO [place] 5.21 [facility] x10(6)/[facility] LABORATORY Hemoglobin 12.7 11.7 - [facility] 15.5 gm/dL [facility] Hematocrit 38.3 35.7 - [facility] % [facility] MCV 96.2 (H) 82.6 - [facility] [place] 94.4 [facility] LABORATORY MCH 31.9 27.1 - JO[place]LO [place] 32.0 pg [facility] MCHC 33.2 31.7 - [place] 35.0 gm/dL [facility] Platelets 257 145 - 357 [facility] x10(3)/[facility] LABORATORY RDWSD 45.3 37.0 - JO[place] 46.0 [facility] LABORATORY RDWCV 12.6 11.5 - [place] 14.1 % [facility] MPV 10.8 7.6 - 12.9 [facility] nRBC % Auto 0.0 % [facility] nRBC Abs Auto 0.000 0.000 - [facility] [place] 0.000 [facility] x10(3)/[facility] LABORATORY Specimen Anatomical Collection Method Collection Time Receive d Time (Source) Location / / Volume Laterality Blood specimen 10/09/2019 11:01 0 (specimen) AM EST 11:10 AM EST Resulting Agency Comment Spec In Lab Benny Solano MD HEMATOLOGY ORDERABLES Performing Organization Address City/State/[place] [address] (ABNORMAL) Sedimentation rate (10/09/2019 11:01 AM EST) P athologist Signature Sed Rate 40 (H) 0 - 20 JOSELO Xirrus mm/hr [facility] Specimen Anatomical Collection Method Collection Time Receive d Time (Source) Location / / Volume Laterality Blood specimen 10/09/2019 11:01 0 (specimen) AM EST 11:10 AM EST Resulting Agency Comment Spec In Lab Benny Solano MD HEMATOLOGY ORDERABLES Performing Organization Address City/State/ZIP Code Phon e Number [address] CRP, acute inflammation (10/09/2019 11:01 AM EST) P athologist Signature CRP 1.4 <=4.9 mg/L [facility] Specimen Anatomical Collection Method Collection Time Receive d Time (Source) Location / / Volume Laterality Blood specimen 10/09/2019 11:01 0 (specimen) AM EST 11:10 AM EST Resulting Agency Comment Spec In Lab Benny Solano MD CHEMISTRY ORDERABLES Performing Organization Address City/[facility]/ZIP Code Phon e Number [address] Hepatic Function Panel (10/09/2019 11:01 AM EST) P athologist Signature Total Protein 7.5 6.1 - 8.0 [facility] [place] gm/dL [facility] Albumin 4.3 3.2 - 5.2 [facility] gm/dL [facility] AST 16 0 - 30 [place] unit/L [facility] ALT 12 0 - 30 [place] unit/L [facility] Alk Phos 82 35 - 105 [place] unit/L [facility] Total 0.3 0.2 - 1.3 [place] Bilirubin mg/dL [facility] Bili, Direct 0.1 0.0 - 0.3 [facility] mg/dL [facility] Specimen Anatomical Collection Method Collection Time Receive d Time (Source) Location / / Volume Laterality Blood specimen 10/09/2019 11:01 0 (specimen) AM EST 11:10 AM EST Resulting Agency Comment Spec In Lab Benny Solano MD CHEMISTRY ORDERABLES Performing Organization Address City/[facility]/ZIP Code Phon e Number [address] Creatinine (10/09/2019 11:01 AM EST) athologist Signature Creatinine 0.95 0.70 - JOSELO FARRIS 1.20 mg/dL [facility] Estimated GFR 66 >=60 JOSELO [place] mL/min/1.7 [facility] 3 m?? HOSPITAL LABORATORY Comment: The eGFR was calculated using the CKD-EP I equation. As with all creatinine based estimates of kidney function, eGFR values calculated with the CKD-EPI equation are not accurate in patients wi th acute kidney failure, extremes of body mass or the acutely ill. [email or web address]nk[facility] eGFR 76 >=60 mL/min/1.73 m?? [facility] Comment: The eGFR was calculated using the CKD-EP I equation. As with all creatinine based estimates of kidney function, eGFR values calculated with the CKD-EPI equation are not accurate in patients wi th acute kidney failure, extremes of body mass or the acutely ill. [email or web address] Specimen Anatomical Collection Method Collection Time Receive d Time (Source) Location / / Volume Laterality Blood specimen 10/09/2019 11:01 0 (specimen) AM EST 11:10 AM EST Resulting Agency Comment Spec In Lab Benny Solano MD CHEMISTRY ORDERABLES Performing Organization Address City/State/ZIP Code Phon e Number [address] Uric acid (10/09/2019 11:01 AM EST) athologist Signature Uric Acid 4.0 2.5 - 6.5 [facility] mg/dL [facility] Specimen Anatomical Collection Method Collection Time Receive d Time (Source) Location / / Volume Laterality Blood specimen 10/09/2019 11:01 0 (specimen) AM EST 11:10 AM EST Resulting Agency Comment Spec In Lab Benny Solano MD CHEMISTRY ORDERABLES Performing Organization Address City/[facility]/ZIP Code Phon e Number [address] Vitamin B12 (10/09/2019 11:01 AM EST) athologist Signature Vitamin B-12 592 232 - 1,245 JO[place]LO [place] pg/mL [facility] Specimen Anatomical Collection Method Collection Time Receive d Time (Source) Location / / Volume Laterality Blood specimen 10/09/2019 11:01 0 (specimen) AM EST 11:24 AM EST Resulting Agency Comment Spec In Lab Benny Solano MD CHEMISTRY ORDERABLES Performing Organization Address City/[facility]/ZIP Code Phon e Number [address] Vitamin D, 25-Hydroxy (10/09/2019 11:01 AM EST) athologist Signature 25-OH Vit D 46 30 - 100 JOSELO FARRIS Total ng/mL [facility] Comment: As of 2019, 25-hydroxyvitamin D lesli ting has moved from the [employer] to the Marcelle Bridget. No substantial change in me asured values is expected. Specimen Anatomical Collection Method Collection Time Receive d Time (Source) Location / / Volume Laterality Blood specimen 10/09/2019 11:01 0 (specimen) AM EST 11:24 AM EST Resulting Agency Comment Spec In Lab Benny Solano MD CHEMISTRY ORDERABLES Performing Organization Address City/State/ZIP Code Phon e Number [address] documented in this encounter Visit Diagnoses Diagnosis Sjogren's syndrome, with unspecified org an involvement Celiac disease/sprue Celiac disease Medication monitoring encounter Encounter for therapeutic drug monitorin g Pain in peñaloza, unspecified laterality High risk medication use Encounter for long-term (current) use of other medications Osteoarthritis, unspecified osteoarthrit is type, unspecified site Chronic pain of both knees Myofascial pain dysfunction syndrome Mylagia and myositis, unspecified Macrocytosis Other specified diseases of blood and bl ood-forming organs Inflammatory arthropathy Arthropathy, unspecified, site unspecifi ed [...] medications documented in this encounter Care Teams Bun Panner Relationship Specialty Start Date End Date Anthony Samaniego MD PCP - General 07/16/14 [address] [place] [address] documented as of this encounter
--- OUTSIDE RECORDS SUMMARY | 2022-05-13 01:45 | XMS_ITS | Encounter Summary ---
:1960 [place] [address] Care Team Providers Name Role Phone Anthony Samaniego MD Primary Care Provider [phone] Encounter Details Date Type Department Care Team Description 03/11/2020 Telephone Pulmonology at [facility] Carla Beltran, [place] [address] Social History Tobacco Use Types Packs/Day [...] this encounter Miscellaneous Notes Telephone Encounter - Carla Beltran - 03/11/2020 3:29 PM EDT [employer] Director Pre-Telemedicine Phone Note [] Patient not reached [x] Patient reached and the following information was reviewed/obtained per protocol: [x] Confirmed patient name and date of [x] Confirmed telemedicine shaggy (Vidyo and Virtual Visit) is downloaded and functioning [x] Confirmed location of patient - TeleVisit is taking place in [x] [place] [] [place] [] If not on myD, working on signing up for [facility] [] Confirmed has completed any pre-visit questionnaires [] If has not received required pre-visit questionnaires, send via [facility] [x] Reviewed patient medications ??? cevimeline (EVOXAC) 30 mg Capsule ??? gabapentin (Neurontin) 300 mg Capsule ??? hydroxychloroquine (PLAQUENIL) 200 mg Tablet ??? cholecalciferol, Vitamin D3, 50,000 unit Capsule ??? PREVIDENT 5000 DRY MOUTH 1.1 % Gel ??? DOCUSATE CALCIUM (STOOL SOFTENER ORAL) ??? ibuprofen (ADVIL;MOTRIN) 800 mg tablet [x] Documented self-reported vitals: [x] Weight: 235 lbs [x] Height 5 ft 2 in [] pulse recorded: [] Other information or concerns documented in this encounter Plan of Treatment Upcoming Encounters Date Type Specialty Care Team Description 06/03/2022 Office Visit Rheumatology Benny Solano MD [facility] [address] [place] [address] (Wo rk) documented as of this encounter Visit Diagnoses Not on filedocumented in this encounter Care Teams Reach Truck Operator Relationship Specialty Start Date End Date Anthony Samaniego MD PCP - General 07/16/[address] [place] [address] documented as of this encounter
--- OUTSIDE RECORDS SUMMARY | 2022-05-13 01:45 | XMS_ITS | Encounter Summary ---
:1960 Author Organization [facility] [place] [address] Care Team Providers Name Role Phone Anthony Samaniego MD Primary Care Provider [phone] Encounter Details Date Type Department Care Team Description 04/02/2021 Telephone Rhe[place]ology at [facility] Megan Sheffield [facility] [place] [phone] Social History Tobacco Use Types Packs/Day [...] Notes Telephone Encounter - Megan Sheffield - 04/02/2021 3:05 PM EDT LM to schedule follow up with dr borjas documented in this encounter Plan of Treatment Upcoming Encounters Date Type Specialty Care Team Description 06/03/2022 Office Visit Rheumatology Benny Borjas MD [facility] [address] [place] [address] (Wo rk) documented as of this encounter Visit Diagnoses Not on filedocumented in this encounter Care Teams Customs Director Relationship Specialty Start Date End Date Anthony Samaniego MD PCP - General 07/16/[address] [place] [address] documented as of this encounter
--- OUTSIDE RECORDS SUMMARY | 2022-05-13 01:45 | XMS_ITS | Encounter Summary ---
:1960 Author Organization [place] [address] Care Team Providers Name Role Phone Anthony Samaniego MD Primary Care Provider [phone] Reason for Visit Reason Comments Medication Refill Encounter Details Date Type Department Care Team Description 09/13/2019 [place] [facility] [place] Solano [place] High risk medication use; [facility] Inflammatory arthropathy; [place] [address] Vitamin D deficiency; [phone] [place], [place] [address] Dry eyes; [phone] (Wo rk) Dry mouth Social History Tobacco [...] 06/03/2022 Office Visit Rheumatology Benny Solano MD [facility] er [address] [place], [place] [address] (Wo rk) documented as of this encounter Visit Diagnoses Diagnosis High risk medication use Encounter for long-term (current) use of other medications Inflammatory arthropathy Arthropathy, unspecified, site unspecifi ed Vitamin D deficiency Unspecified vitamin D deficiency Dry eyes Tear film insufficiency, unspecified Dry mouth Disturbance of salivary secretion documented in this encounter Care Teams Electronics System Mechanic Relationship Specialty Start Date End Date Anthony Samaniego MD PCP - General 07/16/[address] [place] [address] [address] [place] [address] documented as of this encounter
--- OUTSIDE RECORDS SUMMARY | 2022-05-13 01:45 | XMS_ITS | Encounter Summary ---
:1960 Author Organization [facility] [place] [address] Care Team Providers Name Role Phone Anthony Samaniego MD Primary Care Provider [phone] Reason for Visit Reason Comments Medication Refill Encounter Details Date Type Department Care Team Description 11/17/2020 [place] [facility] [place] Sol[place] Dry eyes; [facility]ia [facility] Sjogren's syndrome, with uns pecified organ involvement; [place] [address] Sicca syndrome [phone] [place], [place] [address] (Wo rk) Social History Tobacco [...] 06/03/2022 Office Visit Rheumatology Benny Solano MD [facility] er [place], [place] [address] (Wo rk) documented as of this encounter Visit Diagnoses Diagnosis Dry eyes Tear film insufficiency, unspecified Sjogren's syndrome, with unspecified org an involvement Sicca syndrome documented in this encounter Care Teams Operations Intelligence Relationship Specialty Start Date End Date Anthony Samaniego MD PCP - General 07/16/[address] [place] [address] documented as of this encounter
--- OUTSIDE RECORDS SUMMARY | 2022-05-13 01:45 | XMS_ITS | Encounter Summary ---
:1960 Author Organization [facility] [address] Care Team Providers Name Role Phone Anthony Samaniego MD Primary Care Provider [phone] Encounter Details Date Type Department Care Team Description 11/19/2020 Orders Only [place] [facility] [place] Solano MD [facility] [place] [address] [place] [address] [phone] (Wo rk) Social History Tobacco Use Types [...] Solano MD [facility] [address] [place], [place] [address] (Wo rk) documented as of this encounter Visit Diagnoses Not on filedocumented in this encounter Care Teams Manager Care Management Relationship Specialty Start Date End Date Anthony Samaniego MD PCP - General 07/16/[address] [place] [address] documented as of this encounter
--- OUTSIDE RECORDS SUMMARY | 2022-05-13 01:45 | XMS_ITS | Encounter Summary ---
:1960 Author Organization [facility] [place] [address] Care Team Providers Name Role Phone Anthony Samaniego MD Primary Care Provider [phone] Reason for Visit Reason Onset Date Comments Medication Refill 04/07/2021 Encounter Details Date Type Department Care Team Description 04/07/2021 Refill Rheumatology at [facility] [place] Benny Solano MD Dry eyes; [facility] zia [facility] Sjogren's syndrome, with uns pecified organ involvement; [place] [address] Sicca syndrome [phone] [place], [place] [address] (Wo rk) Social History Tobacco [...] Office Visit Rheumatology Benny Solano MD [facility] er [address] [place], [place] [address] (Wo rk) documented as of this encounter Visit Diagnoses Diagnosis Dry eyes Tear film insufficiency, unspecified Sjogren's syndrome, with unspecified org an involvement Sicca syndrome documented in this encounter Care Teams Outside Event Sales Specialist Relationship Specialty Start Date End Date Anthony Samaniego MD PCP - General 07/16/[address] [place] [address] documented as of this encounter
--- OUTSIDE RECORDS SUMMARY | 2022-05-13 01:46 | XMS_ITS | Encounter Summary ---
:1960 Author Organization [facility] [place] [address] Care Team Providers Name Role Phone Anthony Samaniego MD Primary Care Provider [phone] Encounter Details Date Type Department Care Team Description 08/13/2016 Hospital Encounter Radiology Library at [facility] teresita Meza MD [facility] [place] [address] DEPT. [phone] [place], [place] [address] (Wo rk) Social History Tobacco Use Types Packs/Day Years Used Date Never Smoker Smokeless Tobacco: Never Used Alcohol Use Standard Drinks/Week Comments Yes 1 (1 standard drink = 0.6 oz pure alcoho l) Sex Assigned at Date Recorded Not on file documented as of this encounter Medications at Time of Discharge Medication Sig Dispensed Refills Start Date End Date DOCUSATE CALCIUM (STOOL Take by mouth as 0 SOFTENER ORAL) needed. ibuprofen (ADVIL;MOTRIN) Take 800 mg by 0 11/26/2021 800 mg tablet mouth every 6 hours as needed. RIFAXIMIN 550 mg Tablet TAKE 1 TABLET BY 42 tablet 0 201405/17/2017 MOUTH 3 TIMES A DAY FOR 14 DAYS phenazopyridine (PYRIDIUM) Take 200 mg by 0 10/24/2018 100 mg tablet mouth daily as needed. citalopram (CELEXA) 40 mg Take 40 mg by 0 10/24/2018 tablet mouth daily. documented as of this encounter Plan of Treatment Upcoming Encounters Date Type Specialty Care Team Description 06/03/2022 Office Visit Rheumatology Benny Solano MD [facility] er [place] [address] (Wo rk) documented as of this encounter Procedures Procedure Name Priority Date/Time Associated Diagnosis Comme nts FILM LIBRARY Routine 08/13/2016 12:00 AM Pain Results for this STORAGE ONLY DX EST procedure ar e in ABDOMEN the results section. documented in this encounter Results Film Library- Storage Only DX Abdomen (08/13/2016 12:00 AM EST) Specimen (Source) Anatomical Location Collection Method / Collectio n Time Received Time / Laterality Volume Narrative [facility] - 08/22/2016 12:27 PM EST This exam is for storage only and is aut o-finalizing. John Perez MD IMG FILM LIBRARY ORDERABLES Performing Organization Address City/State/ZIP Code Phon e Number [facility] [place] documented in this encounter Visit Diagnoses Diagnosis Pain Generalized pain documented in this encounter Care Teams Paralegals Relationship Specialty Start Date End Date Anthony Samaniego MD PCP - General 07/16/[address] [place] [address] documented as of this encounter
--- OUTSIDE RECORDS SUMMARY | 2022-05-13 01:46 | XMS_ITS | Encounter Summary ---
:1960 Author Organization [facility] Address [place] [id number] Care Team Providers Name Role Phone Anthony Samaniego MD Primary Care Provider [phone] Encounter Details Date Type Department Care Team Description 11/15/2017 Hospital Encounter XRay at [facility] [place], Polyarthralgia; [address] [facility] [address] Patty MD Fatigue, unspecified type [facility] [address] [place] [phone] [place] [address] Social History Tobacco Use Types Packs/Day Years [...] tablet mouth every 6 hours as needed. naproxen (NAPROSYN) 500 mg Take 1 tablet by 60 tablet 1 10/24/2018 Tablet mouth 2 times daily (with meals). rifAXIMin (RIFAXIMIN) 550 Take 1 tablet by 42 tablet 0 04/2610/24/2018 mg Tablet mouth 3 times daily. phenazopyridine (PYRIDIUM) Take 200 mg by 0 10/24/2018 100 mg tablet mouth daily as needed. citalopram (CELEXA) 40 mg Take 40 mg by 0 10/24/2018 tablet mouth daily. documented as of this encounter Plan of Treatment Upcoming Encounters Date Type Specialty Care Team Description 06/03/2022 Office Visit Rheumatology Benny Solano MD [facility] er [address] [place], [place] [address] (Wo rk) documented as of this encounter Procedures Procedure Name Priority Date/Time Associated Diagnosis Comme nts XR KNEE AP AND LAT Routine 11/15/2017 3:38 PM Polyarthra lgia Results for this BILAT EST Fatigue, unspecified procedu re are in type the results section. documented in this encounter Results XR Knee 1-2 Views Bilat (Generic) (11/15/2017 3:38 PM EST) Anatomical Region Laterality Modality Knee Bilateral Digital Radiography Specimen (Source) Anatomical Location Collection Method / Collectio n Time Received Time / Laterality Volume Impressions 11/15/2017 5:06 PM EST Bilateral knee joint osteoarthropathy. I have personally reviewed the image(s) and the residents interpretation and agree with the findings, Yenifer varghese 11/15/2017 5:06 PM Narrative 11/15/2017 5:06 PM EST EXAMINATION: XR KNEE 1-2 VIEWS BILAT (GENERIC) CLINICAL HISTORY: b/l knee pain R>L TECHNIQUE: AP and lateral radiographs of the bilateral knees. COMPARISON: None FINDINGS: Bilateral medial joint space narrowing a nd marginal osteophyte formation consistent with osteoarthropathy. No acu te osseous injury. No joint effusion. No radiographically evident soft tissue swe lling. Procedure Note Yenifer Ferguson MD - 11/15/2017Formatt ing of this note might be different from the original. EXAMINATION: XR KNEE 1-2 VIEWS BILAT (GE NERIC) CLINICAL HISTORY: b/l knee pain R>L TECHNIQUE: AP and lateral radiographs of the bilateral knees. COMPARISON: None FINDINGS: Bilateral medial joint space narrowing a nd marginal osteophyte formation consistent with osteoarthropathy. No acu te osseous injury. No joint effusion. No radiographically evident soft tissue swe lling. IMPRESSION Bilateral knee joint osteoarthropathy. I have personally reviewed the image(s) and the residents interpretation and agree with the findings, Yenifer varghese 11/15/2017 5:06 PM Patty Hebert MD IMG DX ORDERABLES documented in this encounter Visit Diagnoses Diagnosis Polyarthralgia Pain in joint, multiple sites Fatigue, unspecified type documented in this encounter Care Teams Shooter Helper Relationship Specialty Start Date End Date Anthony Samaniego MD PCP - General 07/16/[address] [place] [address] [address] [place] [address] documented as of this encounter
--- OUTSIDE RECORDS SUMMARY | 2022-05-13 01:46 | XMS_ITS | Encounter Summary ---
:1960 Author Organization [facility] [place] [address] Care Team Providers Name Role Phone Anthony Samaniego MD Primary Care Provider [phone] Encounter Details Date Type Department Care Team Description 12/31/2014 Hospital Encounter Radiology Library at [facility], [place] [address] Social History Tobacco Use Types Packs/Day [...] as 0 SOFTENER ORAL) needed. ibuprofen (ADVIL;MOTRIN) 800 Take 800 mg by 0 11/26/2021 mg tablet mouth every 6 hours as needed. phenazopyridine (PYRIDIUM) Take 200 mg by 0 10/24/2018 100 mg tablet mouth daily as needed. citalopram (CELEXA) 40 mg Take 40 mg by 0 10/24/2018 tablet mouth daily. documented as of this encounter Plan of Treatment Upcoming Encounters Date Type Specialty Care Team Description 06/03/2022 Office Visit Rheumatology Benny Solano MD [facility] [address] [place], [place] [address] (Wo rk) documented as of this encounter Procedures Procedure Name Priority Date/Time Associated Diagnosis Comme nts FILM LIBRARY Routine 12/31/2014 12:00 AM Pain Results for this STORAGE ONLY DX GI EDT procedure are in STUDY the results section. documented in this encounter Results Film Library- Storage only DX GI Study (12/31/2014 12:00 AM EDT) Specimen (Source) Anatomical Location Collection Method / Collectio n Time Received Time / Laterality Volume Narrative RAD - 09/02/2015 2:25 PM EST See PACS for result report. Dr Guerrero [facility] FILM LIBRARY ORDERABLES Performing Organization Address City/State/ZIP Code Phon e Number [place], [place] documented in this encounter Visit Diagnoses Diagnosis Pain Generalized pain documented in this encounter Care Teams Mechanism Assembler Relationship Specialty Start Date End Date Anthony Samaniego MD PCP - General 07/16/[address] [place] [address] documented as of this encounter
--- OUTSIDE RECORDS SUMMARY | 2022-05-13 01:46 | XMS_ITS | Encounter Summary ---
:1960 Author Organization [facility] [place] [address] Care Team Providers Name Role Phone Anthony Samaniego MD Primary Care Provider [phone] Reason for Visit Reason Comments Bloated Constipation Encounter Details Date Type Department Care Team Description 09/02/2015 Tech Visit Gastroenterology at [facility] Luca Cain Chronic constipation; [facility] Joshua Ibrahim MD Small [place] [address] [facility] [phone] DR GASTROENTEROLOGY [place] [address] (Wo rk) Social History Tobacco Use Types Packs/Day Years Used Date Never Smoker Smokeless Tobacco: Never Used Alcohol Use Standard Drinks/Week Comments Yes 1 (1 standard drink = 0.6 oz pure alcoho l) Sex Assigned at Date Recorded Not on file documented as of this encounter Patient Instructions Patient InstructionsLuca Cain MD - 09/07/2015 6:06 PM EST Increase fiber in diet, goal 20- 30 grams daily Increase hydration, goal 2-3 liters daily Increase exercise and work on weight loss. Miralax 1-2 capfuls daily to prevent constipation. documented in this encounter Progress Notes Luca Cain MD - 09/02/2015 1:32 PM EST Gastroenterology Breath Test Report Patient: Ai Morrison Date Of : 1960 PCP: ANTHONY SAMANIEGO MD STUDY DATE: 09/02/2015 PROVIDER: Luca Cain MD INDICATION: Abdominal bloating with constipation ppmH2 ppmCH4 (f)CO2 Fasting Baseline: 2 55 3.4/1.61 Administer sugar: 15 mL Lactulose 90 mL H2O Sample Time ppmH2 ppmCH4 (f)CO2 1. 15 min 2 61 3.6/1.52 2. 30 min 2 77 3.4/1.61 3. 45 min 2 101 3.1/1.77 4. 60 min 2 100 2.9/1.89 5. 75 min 2 85 2.7/2.03 6. 90 min 2 56 3.2/1.71 7. 105 min 2 53 3.2/1.71 8. 120 min 3 57 3.5/1.57 9. 135 min 8 53 2.9/1.89 10. 150 min 14 69 3.1/1.77 11. 165 min 13 63 2.2/2.50 12. 180 min 14 60 2.3/2.39 Interpretation: Positive breath test consistent with small intestinal bacterial overgrowth. There freedom significantly elevated methane level at baseline with a significant early rise at 45 minutes however there is no correlating rise in hydrogen production. There is a second but less significant peak in both hydrogen and methane production consistent with a delayed orocecal transit time at 150 minutes. Constipation has been associated with increased methogenic bacteria. Recommendations: # Plan Rifaximin 550 mg TID for 14 days and Neomycin 500mg BID # Increase treatment for chronic constipation Luca Cain MD Gastroenterology [place] [address] P: [phone] F: [phone] Copy: ANTHONY SAMANIEGO MD documented in this encounter Plan of Treatment Upcoming Encounters Date Type Specialty Care Team Description 06/03/2022 Office Visit Rheumatology Benny Sloano MD [facility] [address] [place], [place] [address] (Wo rk) documented as of this encounter Visit Diagnoses Diagnosis Chronic constipation Unspecified constipation Small intestinal bacterial overgrowth documented in this encounter Care Teams Backshoe Person Relationship Specialty Start Date End Date Anthony Samaniego MD PCP - General 07/16/[address] [place] [address] documented as of this encounter
--- OUTSIDE RECORDS SUMMARY | 2022-05-13 01:46 | XMS_ITS | Encounter Summary ---
:1960 Author Organization [facility] [place] [address] Care Team Providers Name Role Phone Anthony Samaniego MD Primary Care Provider [phone] Reason for Visit Diagnostic Test (Routine) - Closed Specialty Diagnoses / Procedures Referred By Contact Refer red To Contact Radiology Diagnoses Celiac disease/sprue Chronic constipation Sjogren's syndrome, with unspecified organ involvement Luca Cain MD [facility] Rad Nuclear Med Procedures NM Gastric Emptying Scan [facility] [place] [address] [place] [address] Fax: Referral ID Status Reason Start Date Expiration Date Visits V isits Requested Authorized [id number] Closed Specialty 08/06/2018 08/06/2019 1 1 Service Requested Encounter Details Date Type Department Care Team Description 01/23/2019 Hospital Encounter Nuclear Medicine at Mamie Cain Mary Hitchcock MD [facility] [address] [place] [address] [place] [address] [phone] (Wo rk) Social History Tobacco Use Types [...] needed. ibuprofen (ADVIL;MOTRIN) Take 800 mg by mouth 0 11/26/2021 800 mg tablet every 6 hours as needed. cevimeline (EVOXAC) 30 Take 1 capsule by 90 capsule 3 201803/24/2019 mg Capsule mouth 3 times daily. documented as of this encounter Plan of Treatment Upcoming Encounters Date Type Specialty Care Team Description 06/03/2022 Office Visit Rheumatology Benny Solano MD [facility] [address] [place], [place] [address] (Wo rk) documented as of this encounter Procedures Procedure Name Priority Date/Time Associated Diagnosis Comme [facility] NM GASTRIC EMPTYING Routine 01/23/2019 12:25 PM Celiac d isease/sprue Results for this SCAN EDT Chronic constipa tion procedure are in Sjogren's syndrome, the resu lts with unspecified section. organ involvement documented in this encounter Results NM Gastric Emptying Scan (01/23/2019 12:25 PM EDT) Anatomical Region Laterality Modality Nuclear Medicine Specimen (Source) Anatomical Location Collection Method / Collectio n Time Received Time / Laterality Volume Impressions 01/23/2019 5:05 PM EDT Normal gastric emptying. I have personally reviewed the image(s) and the residents interpretation and agree with the findings, Richard Layton at 01/23/2019 5:05 PM Thank you for letting us participate in the care of this patient. For questions regarding this report, please contact e number below. ? Electronically signed by: ANGELIA Sifuentes [facility] ([phone]), at 01/23/2019 5:05 PM Narrative 01/23/2019 5:05 PM EDT EXAMINATION: NM GASTRIC EMPTYING SCAN CLINICAL HISTORY: chronic constipation a nd new diagnosis of Sjrogren's TECHNIQUE: A standard meal was labeled w ith 0.5 mCi of Technetium-99m sulfur colloid and ingested. Images of the stom ach were obtained in the anterior and posterior projections immediately therea fter and 1, 2, and 3 hours later. COMPARISON: None FINDINGS: Activity fills the stomach on the initia l images obtained immediately after ingesting the meal. Small bowel is visib le at one hour. There is minimal activity present in the stomach at 3 matthew rs. Quantitative analysis: 2 hours: 6 percent remains in the stomac h (normal less than 60%) 3 hours: 2 percent remains in the stomac h (normal less than 10% at four hours) Procedure Note Richard Layton MD - 01/23/2019Formatti ng of this note might be different from the original. EXAMINATION: NM GASTRIC EMPTYING SCAN CLINICAL HISTORY: chronic constipation a nd new diagnosis of Sjrogren's TECHNIQUE: A standard meal was labeled w ith 0.5 mCi of Technetium-99m sulfur colloid and ingested. Images of the stom ach were obtained in the anterior and posterior projections immediately therea fter and 1, 2, and 3 hours later. COMPARISON: None FINDINGS: Activity fills the stomach on the initia l images obtained immediately after ingesting the meal. Small bowel is visib le at one hour. There is minimal activity present in the stomach at 3 matthew rs. Quantitative analysis: 2 hours: 6 percent remains in the stomac h (normal less than 60%) 3 hours: 2 percent remains in the stomac h (normal less than 10% at four hours) IMPRESSION Normal gastric emptying. I have personally reviewed the image(s) and the residents interpretation and agree with the findings, Richard Layton at 01/23/2019 5:05 PM Thank you for letting us participate in the care of this patient. For questions regarding this report, please contact e number below. Electronically signed by: Richard Layton [facility] ([phone]), at 01/23/2019 5:05 PM Luca Cain MD IMG NM ORDERABLES documented in this encounter Visit Diagnoses Not on filedocumented in this encounter Care Teams Painter Drum Relationship Specialty Start Date End Date Anthony Samaniego MD PCP - General 07/16/[address] [place] [address] documented as of this encounter
--- OUTSIDE RECORDS SUMMARY | 2022-05-13 01:46 | XMS_ITS | Encounter Summary ---
:1960 Author Organization [facility] [place] [address] Care Team Providers Name Role Phone Anthony Samaniego MD Primary Care Provider [phone] Encounter Details Date Type Department Care Team Description 08/26/2016 Telephone [place] [facility] Aman Grant [facility] [place] [address] Social History Tobacco Use Types Packs/Day Years Used Date Never Smoker Smokeless Tobacco: Never Used Alcohol Use Standard Drinks/Week Comments Yes 1 (1 standard drink = 0.6 oz pure alcoho l) Sex Assigned at Date Recorded Not on file documented as of this encounter Miscellaneous Notes Telephone Encounter - Aman Grant - 08/26/2016 9:09 AM EST Caller: Ai Morrison Call for: scheduling Reason for call: Schedule colo - schedule 10/14/16; pt is going to call and see if an MRI can be ordered instead as that can be done sooner than after her current flare Call back urgency: N/A Ok to leave detailed message? *NA Patient's preferred method of communication: N/A documented in this encounter Plan of Treatment Upcoming Encounters Date Type Specialty Care Team Description 06/03/2022 Office Visit Rheumatology Benny Solano MD [facility] [address] [place] [address] (Wo rk) documented as of this encounter Visit Diagnoses Not on filedocumented in this encounter Care Teams [employer] Scout Relationship Specialty Start Date End Date Anthony Samaniego MD PCP - General 07/16/14 [address] [place] [address] documented as of this encounter
--- OUTSIDE RECORDS SUMMARY | 2022-05-13 01:46 | XMS_ITS | Encounter Summary ---
:1960 Author Organization [facility] [place] [address] Care Team Providers Name Role Phone Anthony Samaniego MD Primary Care Provider [phone] Encounter Details Date Type Department Care Team Description 09/27/2018 Telephone [place] [facility] [place] [address] Social History Tobacco Use Types Packs/Day [...] this encounter Miscellaneous Notes Telephone Encounter - Doris Soria - 09/27/2018 12:45 PM EST Called pt to schedule ARM; no answer, left voicemail. -bcj documented in this encounter Plan of Treatment Upcoming Encounters Date Type Specialty Care Team Description 06/03/2022 Office Visit Rheumatology Benny Solano MD [facility] [address] [place], [place] [address] (Wo rk) documented as of this encounter Visit Diagnoses Not on filedocumented in this encounter Care Teams Miniature Set Designer Relationship Specialty Start Date End Date Anthony Samaniego MD PCP - General 07/16/[address] [place] [address] documented as of this encounter
--- OUTSIDE RECORDS SUMMARY | 2022-05-13 01:46 | XMS_ITS | Encounter Summary ---
:1960 Author Organization [facility] [place] [address] Care Team Providers Name Role Phone Anthony Samaniego MD Primary Care Provider [phone] Encounter Details Date Type Department Care Team Description 08/24/2016 Telephone Gastroenterology at [facility] Mayito Elizalde [facility] [place] [address] Social History Tobacco Use Types Packs/Day Years Used Date Never Smoker Smokeless Tobacco: Never Used Alcohol Use Standard Drinks/Week Comments Yes 1 (1 standard drink = 0.6 oz pure alcoho l) Sex Assigned at Date Recorded Not on file documented as of this encounter Miscellaneous Notes Telephone Encounter - Mayito Elizalde - 08/24/2016 12:23 PM EST MD Ana Maria Oconnor called in regards to this Pt. Pt has had recent ED visit(s) and provider thinks she needs a GIF here with Dr. Cantu. Lots of GI issues. She is going to get the recent records faxed overto tech writer. documented in this encounter Plan of Treatment Upcoming Encounters Date Type Specialty Care Team Description 06/03/2022 Office Visit Rheumatology Benny Solano MD [facility] er [address] [place], [place] [address] (Wo rk) documented as of this encounter Visit Diagnoses Not on filedocumented in this encounter Care Teams Construction Mgr Relationship Specialty Start Date End Date Anthony Samaniego MD PCP - General 07/16/14 [address] [facility] [address] [place] [address] documented as of this encounter
--- OUTSIDE RECORDS SUMMARY | 2022-05-13 01:46 | XMS_ITS | Encounter Summary ---
:1960 Author Organization [place] [address] Care Team Providers Name Role Phone Anthony Samaniego MD Primary Care Provider [phone] Reason for Referral Diagnostic Test (Routine) - Closed Specialty Diagnoses / Procedures Referred By Contact Refer red To Contact Radiology Diagnoses Celiac disease/sprue Chronic constipation Sjogren's syndrome, with unspecified organ involvement Luca Cain MD [facility] Rad Nuclear Med Procedures NM Gastric Emptying Scan [facility] [address] [address] Fax: Referral ID Status Reason Start Date Expiration Date Visits V isits Requested Authorized [id number] Closed Specialty 08/06/2018 08/06/2019 1 1 Service Requested Reason for Visit Diagnostic Test (Routine) - Closed Specialty Diagnoses / Procedures Referred By Contact Refer red To Contact Radiology Diagnoses Celiac disease/sprue Chronic constipation Sjogren's syndrome, with unspecified organ involvement Luca Cain MD [facility] Rad Nuclear Med Procedures NM Gastric Emptying Scan [facility] [place] [address] [place] [address] Fax: Referral ID Status Reason Start Date Expiration Date Visits V isits Requested Authorized [id number] Closed Specialty 08/06/2018 08/06/2019 1 1 Service Requested Encounter Details Date Type Department Care Team Description 01/23/2019 Hospital Encounter Nuclear Medicine at Mamie Cain xuan Celiac disease/sprue; Dee Ibrahim MD Chronic constipation; [facility] Sjo gren's syndrome, with unspecified organ involvement [address] [place] [facility] [address] [place] [address] [phone] Social History Tobacco Use Types Packs/Day Years [...] Office Visit Rheumatology Benny Solano MD [facility] er [address] [place], [place] [address] (Wo rk) documented as of this encounter Procedures Procedure Name Priority Date/Time Associated Diagnosis Comme [facility] GASTRIC EMPTYING Routine 01/23/2019 12:25 PM Celiac [...] For questions regarding this report, please contact [facility] number below. ? Narrative 01/23/2019 5:05 PM EDT EXAMINATION: NM [...] this report, please contact e number below. Luca Cain MD [facility] [place] ORDERABLES documented in this encounter Visit Diagnoses Diagnosis Celiac disease/sprue Celiac disease Chronic constipation Unspecified constipation Sjogren's syndrome, with unspecified org an involvement documented in this encounter Administered Medications Inactive Administered Medications - up to 3 most recent administrations Medication Order MAR Action Action Date Dose Rate Site technetium (Tc-99m) sulfur Given 01/23/2019 9:15 AM EDT 0.6 mCi colloid injection 0.6 mCi 0.6 mCi, Oral, ONCE PRN, 1 dose, Starting on Mon01/23/19 at 0915, Until Mon01/23/19 at 0915, Per Protocol, Routine documented in this encounter Care Teams Tumbler Machine Operator Relationship Specialty Start Date End Date Anthony Samaniego MD PCP - General 07/16/[address] [place] [address] documented as of this encounter
--- OUTSIDE RECORDS SUMMARY | 2022-05-13 01:46 | XMS_ITS | Encounter Summary ---
:1960 Author Organization [facility] [place] [address] Care Team Providers Name Role Phone Anthony Samaniego MD Primary Care Provider [phone] Encounter Details Date Type Department Care Team Description 07/17/2014 Telephone Gastroenterology at [facility] [place] [address] Social History Tobacco Use Types Packs/Day Years Used Date Never Smoker Smokeless Tobacco: Never Used Alcohol Use Standard Drinks/Week Comments Yes 1 (1 standard drink = 0.6 oz pure alcoho l) Sex Assigned at Date Recorded Not on file documented as of this encounter Miscellaneous Notes Telephone Encounter - Christina Ryan - 07/17/2014 3:[address] A/P order by Keyon Cantu faxed to [facility]: [phone] with pre-cert: [id number], expires 09-14. Ptconnected to [facility] radiology scheduling. documented in this encounter Plan of Treatment Upcoming Encounters Date Type Specialty Care Team Description 06/03/2022 Office Visit Rheumatology Benny Solano MD [facility] [address] [place], [place] [address] (Wo rk) documented as of this encounter Visit Diagnoses Not on filedocumented in this encounter Care Teams Nicu Rn Relationship Specialty Start Date End Date Anthony Samaniego MD PCP - General 07/16/[address] [place] [address] documented as of this encounter
--- OUTSIDE RECORDS SUMMARY | 2022-05-13 01:46 | XMS_ITS | Encounter Summary ---
:1960 Author Organization [facility] [place] [address] Care Team Providers Name Role Phone Anthony Samaniego MD Primary Care Provider [phone] Reason for Visit Reason Comments GI Problem Encounter Details Date Type Department Care Team Description 08/26/2015 Office Visit Gastroenterology at [facility] Luca Cain Celiac disease/sprue (Primar y Dx); [facility] Joshua [place] [address] [facility] [phone] DR [facility]ENTEROLOGY [place] [address] Social History Tobacco Use Types Packs/Day Years Used Date Never Smoker Smokeless Tobacco: Never Used Alcohol Use Standard Drinks/Week Comments Yes 1 (1 standard drink = 0.6 oz pure alcoho l) Sex Assigned at Date Recorded Not on file documented as of this encounter Last Filed Vital Signs Vital Sign Reading Time Taken Comments Blood Pressure 141/83 08/26/2015 9:07 AM EST Pulse 69 08/26/2015 9:07 AM EST Temperature - - Respiratory Rate - - Oxygen Saturation - - Inhaled Oxygen Concentration - - Weight 108.9 kg (240 lb) 08/26/2015 9:07 AM EST Height 157.5 cm (5' 2) 08/26/2015 9:07 AM EST Body Mass Index 43.9 08/26/2015 9:07 AM EST documented in this encounter Patient Instructions Patient InstructionsParLuca camacho MD - 08/26/2015 10:05 AM EST Blood work today. Schedule a breath test Food probiotics like yogurt or Kefir daily OK to use probiotics but change type every once in a while Increase fiber intake to goal of 20-30 grams daily Drink plenty of water, goal 3 liter of water daily Miralax 1 capful daily. OK to increase by half capful as needed up to 3 capfuls daily if needed. This is a preventive so need to be patient and stick with it for a month or more to see full benefit. Increase exercise and work on weight loss. Focus on protein, high fiber and low carbohydrate diet. documented in this encounter Progress Notes Luca Cain MD - 08/26/2015 4:26 PM EST Gastroenterology Outpatient Progress Note Patient ID: Ai Morrison is a 55 y.o. female with history of celiac disease and chronic constipation who returns to clinic for a second opinion regarding options to manage constipation and celiac disease. She has previously seen Dr. Cantu and Dr. Figueroa in the GI clinic. Patient Active Problem List Diagnosis ??? Celiac disease/sprue ??? Chronic constipation Interim History: Ms. Morrison returns today for a second opinion regarding her chronic constipation, abdominal pain and concern about prior findings on CT scan and surgeries She reports thickened small bowel was noted on laparoscopy/BSO 4 years ago. She did have a subsequent MRE (normal) and colonoscopy (normal colon and TI) She also reports a visit to local emergency room about a month ago which led to CT scan noting residual stool but also a few prominent mesenteric lymph nodes that have been seen previously. She reports weight is stable if not up slightly and she cannot loose weight. She continues to move bowels daily, no diarrhea or blood in stool. She does feel sensation of fullness and bloating daily. She reports eating a full box and a half of Cheerios this fall before the recall with worsened constipation and is concerned about gluten exposure. She is very concerned about her mother's history of colon cancer and possibly undiagnosed celiac disease. She is concerned that she could have Crohn's disease. Review of Systems Constitutional: Negative for fever and unexpected weight change. HENT: Negative for mouth sores. Eyes: Negative for pain and redness. Respiratory: Negative for cough and shortness of breath. Cardiovascular: Negative for chest pain and palpitations. Gastrointestinal: See above Negative for nausea, vomiting, abdominal pain, diarrhea, constipation and abdominal distention. Genitourinary: Negative for dysuria. Musculoskeletal: Negative for joint swelling and arthralgias. Skin: Negative for rash. Current Outpatient Prescriptions Medication Sig Dispense Refill ??? phenazopyridine (PYRIDIUM) 100 mg tablet Take 200 mg by mouth daily as needed. ??? DOCUSATE CALCIUM (STOOL SOFTENER ORAL) Take by mouth as needed. ??? citalopram (CELEXA) 40 mg tablet Take 40 mg by mouth daily. ??? ibuprofen (ADVIL;MOTRIN) 800 mg tablet Take 800 mg by mouth every 6 hours as needed. No current facility-administered medications for this visit. Physical Examination: BP 141/83 mmHg Pulse 69 Ht 157.5 cm (5' 2) Wt 108.863 kg (240 lb) BMI 43.89 kg/m2 General: Pleasant, cooperative, NAD HEENT: NC/AT, anicteric, MMM without exudate or discharge Exam deferred to address patient questions Labs and other testing: Reviewed in [facility]. Pertinent labs included below 2007: celiac serologies positive Gliadin IgA and IgG as well as Endomysial Abs 2008: EGD normal 2010: EGD with villous blunting after gluten challenge 2012: normal TTG 2013: normal EGD Impression: Ai Morrison is a 55 y.o. female with celiac disease previous documented on EGD and serologies. She also suffers from chronic constipation. Despite some prominent lymph nodes which have been noted on previous CT imaging subsequent MRE and Colonoscopy in 2013 was normal. More recently CTin ED one month (report and images not available) also noted a few prominent mesenteric lymph nodes or unclear significance. She continues to deny fever, chills, weight loss or other constitutional symptoms concerning for lymphoma. As CT did not show small bowel abnormality and MRE was normal in 2013 I do not see a role for Capsule at this time. Most common reason fore ongoing symptoms in celiac patients is gluten exposure so I think we should repeat Gliadin antibodies IgA and IgG and tTG. If normal then will continue to manage chronic constipation. We discussed celiac disease and colon cancer, no direct association. There is an increased risk of lymphoma in celiac disease however CT scan does not appear to suggest increased prominent lymph nodes, rather some persistent chronic changes. Given bloat with chronic constipation and celiac disease I do think we should perform a breath test for small intestinal bacterial overgrowth (SIBO) and ifpositive then treat with antibiotics. For chronic constipation we discussed goal of 20-30grams of fiber daily, with additional Miralax as needed as well as adequate hydration and exercise. OK to use a probiotic and/or probiotics foods suchas yogurt. Recommendations # Blood work today for celiac serologies and inflammatory markers. # Schedule a breath test # Food probiotics like yogurt or Kefir daily # OK to use probiotics but change type every once in a while # Increase fiber intake to goal of 20-30 grams daily # Drink plenty of water, goal 3 liter of water daily # Miralax 1 capful daily. OK to increase by half capful as needed up to 3 capfuls daily if needed. This is a preventive so need to be patient and stick with it for a month or more to see full benefit. # Increase exercise and work on weight loss. Focus on protein, high fiber and low carbohydrate diet. # RTC in 3 months or so. I spent 40 min of this 60 min visit counseling the patient in the issues outlined above. Luca Cain MD [facility] Gastroenterology documented in this encounter Plan of Treatment Upcoming Encounters Date Type Specialty Care Team Description 06/03/2022 Office Visit Rheumatology Benny Solano MD [facility] [address] [place], [place] [address] (Wo rk) documented as of this encounter Procedures Procedure Name Priority Date/Time Associated Diagnosis Comme nts GLIADIN ANTIBODIES Routine 08/26/2015 11:09 Celiac disea se/sprue Results for this AM EST Chronic constipation procedu re are in the results section. TISSUE Routine 08/26/2015 11:09 Celiac disease/ sprue Results for this TRANSGLUTAMINASE, IGA AM EST Chronic constipatio n procedure are in the results section. SEDIMENTATION RATE Routine 08/26/2015 11:09 Celiac disea se/sprue Results for this AM EST Chronic constipation procedu re are in the results section. CRP, CARDIAC RISK (HS Routine 08/26/2015 11:09 Celiac di sease/sprue Results for this CRP) AM EST Chronic constipation procedu re are in the results section. documented in this encounter Results High Sensitivity CRP (08/26/2015 11:09 AM EST) P athologist Signature CRP High Sens 1.9 mg/L CERNER MILLENNIUM Comment: Interpretations: 1) For accurate cardiac risk assessment, the average of 2 values >2 weeks apart should be obtained (ref 1&2). A value >1 0 mg/L indicates an inflammatory condition, concentrations >10 mg/L shoul d not be used for cardiac risk assessment. ?<1.0 mg/L: low risk ?1.0 - 3.0 mg/L: moderate risk ?>3.0 mg/L: high risk groups for fu ture cardiovascular events 2) The general reference range of appare ntly healthy individuals using this test is <5.0 mg/L (derived from the test package insert) References: 1. Grover VASQUEZ et. al. ??AHA/CDC Scientif ic Statement: Markers of Inflammation and Cardiovascular Disease. ??Circulatio n 2003; 107:499-511 2. Raquel PM. ??Clinical applications of C-reactive protein for cardiovascular disease detection and prevention. ??Circ ulation 2003; 107:363-369 Specimen Anatomical Collection Method Collection Time Receive d Time (Source) Location / / Volume Laterality Blood specimen 08/26/2015 11:09 5 (specimen) AM EST 11:19 AM EST Resulting Agency Comment Spec In Lab Luca Cain MD CHEMISTRY ORDERABLES Performing Organization Address City/State/[place] [address] CERNER MILLENNIUM (ABNORMAL) Sedimentation rate (08/26/2015 11:09 AM EST) P athologist Signature Sed Rate 24 (H) 0 - 20 CERNER mm/hr MILLENNIUM Specimen Anatomical Collection Method Collection Time Receive d Time (Source) Location / / Volume Laterality Blood specimen 08/26/2015 11:09 5 (specimen) AM EST 11:19 AM EST Resulting Agency Comment Spec In Lab Luca Cain MD HEMATOLOGY ORDERABLES Performing Organization Address City/[facility]/ZIP Code Phon e Number [address] CERNER MILLENNIUM Tissue transglutaminase, IgA (08/26/2015 11:09 AM EST) P athologist Signature TTG IgA Ab 0.7 0.1 - 10.0 CERNER u/ml MILLENNIUM Comment: New methodology as of 01-27-2015 Negative = <7 U/mL Equivocal = 7-10 U/mL Positive = >10 U/mL Specimen Anatomical Collection Method Collection Time Receive d Time (Source) Location / / Volume Laterality Blood specimen 08/26/2015 11:09 5 2:14 (specimen) AM EST PM EST Resulting Agency Comment Spec In Lab Luca Cain MD IMMUNOLOGY ORDERABLES Performing Organization Address City/[facility]/ZIP Code Phon e Number [address] CERNER MILLENNIUM Gliadin (Deamidated) Antibodies (08/26/2015 11:09 AM EST) P athologist Signature Gliadin IgG <10.0 <20.0 CERNER Deamidated (Negative) MILLENNIUM U Comment: Test Performed by: [place] [address] Manager Mail: Rico Granados Gliadin IgA Deamidated 15.8 <20.0 (Negative) U CERNER MILLENNIUM Comment: Test Performed by: [place] [address] Manager Mail: Rico Granados Specimen Anatomical Collection Method Collection Time Receive d Time (Source) Location / / Volume Laterality Blood specimen 08/26/2015 11:09 5 2:51 (specimen) AM EST PM EST Resulting Agency Comment Spec In Lab Luca Cain MD IMMUNOLOGY ORDERABLES Performing Organization Address City/[facility]/ZIP Code Phon e Number [address] CERNER MILLENNIUM documented in this encounter Visit Diagnoses Diagnosis Celiac disease/sprue - Primary Celiac disease Chronic constipation Unspecified constipation documented in this encounter Care Teams Outsole Flexer Relationship Specialty Start Date End Date Anthony Samaniego MD PCP - General 07/16/[address] [place] [address] documented as of this encounter
--- OUTSIDE RECORDS SUMMARY | 2022-05-13 01:46 | XMS_ITS | Encounter Summary ---
:1960 Author Organization [facility] [place] [address] Care Team Providers Name Role Phone Anthony Samaniego MD Primary Care Provider [phone] Reason for Visit Diagnostic Test (Routine) - Closed Specialty Diagnoses / Procedures Referred By Contact Refer red To Contact Radiology Diagnoses Celiac disease/sprue Chronic constipation Sjogren's syndrome, with unspecified organ involvement Luca Cain MD [facility] Rad Nuclear Med Procedures NM Gastric Emptying Scan [facility] [place] [address] [place] [address] Fax: Referral ID Status Reason Start Date Expiration Date Visits V isits Requested Authorized [id number] Closed Specialty 08/06/2018 08/06/2019 1 1 Service Requested Encounter Details Date Type Department Care Team Description 01/23/2019 Hospital Encounter Nuclear Medicine at [facility]ie Cain Mary Hitchcock MD [facility] [address] [place] [address] [place] [address] [phone] (Wo rk) Social History Tobacco Use Types [...] Visit Rheumatology Benny Solano MD [facility] [address], [place] [address] (Wo rk) documented as of this encounter Procedures Procedure Name Priority Date/Time Associated Diagnosis Comme [facility] GASTRIC EMPTYING Routine 01/23/2019 12:25 [...] please contact e number below. ? Narrative 01/23/2019 5:05 PM [...] contact e number below. Luca Cain MD IMG NM ORDERABLES documented in this encounter Visit Diagnoses Not on filedocumented in this encounter Care Teams Polisher Implant Relationship Specialty Start Date End Date Anthony Samaniego MD PCP - General 07/16/[address] [place] [address] documented as of this encounter
--- OUTSIDE RECORDS SUMMARY | 2022-05-13 01:46 | XMS_ITS | Encounter Summary ---
:1960 Author Organization [facility] [place] [address] Care Team Providers Name Role Phone Anthony Samaniego MD Primary Care Provider Encounter Details Date Type Department Care Team Description 11/23/2018 Telephone Gastroenterology at [facility] [place] [address] Social History Tobacco Use Types Packs/Day Years [...] Notes Telephone Encounter - Doris Soria - 11/23/2018 10:39 AM EST ANORECTAL MANOMETRY REFERRAL SHEET 11/23/2018 Doris Cloud Leatha Morrison [address] [place] [address] [id number] : 1960 REFERRING PROVIDER: gee PRIMARY CARE PROVIDER: Anthony Samaniego DIAGNOSIS: chronic constipation, PFD PRIMARY SYMPTOM (CONSTIPATION, FECAL INCONTINENCE, ETC): chronic constipation, PFD PRE-PROCEDURE QUESTIONS ANAL OR RECTAL SURGERY WITHIN SIX MONTHS? n ACTIVE ULCERATIVE COLITIS OR CROHN'S DISEASE? n IF YES TO ANY OF THE ABOVE PRE-PROCEDURE QUESTIONS, PT CANNOT HAVE THE STUDY AT THIS TIME DUE TO SAFETY CONCERNS and should speak with their provider about alternative testing if indicated. Scheduling should also contact the provider's office directly to notify them that this is a hard-stop on our safety checklist. ADDITIONAL PRE-PROCEDURE QUESTIONS: BLOOD THINNERS SUCH PLAVIX, COUMADIN, PRADAXA? n (For nurse info only; pt does not have to stop any blood thinners) SPECIAL NEEDS PROBLEMS WALKING? n (Does pt use cane, crutches, etc.? If yes, please be specific.) PROBLEMS HEARING, SEEING, SPEAKING, UNDERSTANDING? n (Glasses don't count. - anything else, please elaborate. Ask about hearing aid(s), which side, etc.) SPASTIC BODY MOVEMENTS/TREMORS? n (Restless legs syndrome at night doesn't count - anything else, please document.) VERBAL PATIENT INSTRUCTIONS PREP INSTRUCTIONS: PATIENT AGREES TO BUY TWO [id number] SALINE ENEMAS ([employer], [employer], ETC) AND TO COMPLETE ENEMA #1 AT HOME 2 HOURS BEFORE SCHEDULED ARRIVAL, AND ENEMA #2 AT HOME 1 HOUR SCHEDULED ARRIVAL. IF PATIENT LIVES >1 HOUR AWAY, PATIENT AGREES TO USE BOTH ENEMAS BACK TO BACK BEFORE LEAVING THEIR HOME: y documented in this encounter Plan of Treatment Upcoming Encounters Date Type Specialty Care Team Description 06/03/2022 Office Visit Rheumatology Benny Solano MD [facility] [address] [place], [place] [address] (Wo rk) documented as of this encounter Visit Diagnoses Not on filedocumented in this encounter Care Teams Principal Network Engineer Relationship Specialty Start Date End Date Anthony Samaniego MD PCP - General 07/16/[address] [place] [address] documented as of this encounter
--- OUTSIDE RECORDS SUMMARY | 2022-05-13 01:46 | XMS_ITS | Encounter Summary ---
:1960 Author Organization [facility] [place] [address] Care Team Providers Name Role Phone Anthony Samaniego MD Primary Care Provider [phone] Reason for Visit Reason Onset Date Comments Medication Refill 03/24/2019 Encounter Details Date Type Department Care Team Description 03/24/2019 Refill Rheumatology at [facility] Patty Hebert MD [facility] [place] [address] Rheumatology Dept [phone] [place], [place] [address] (Wo rk) Social History Tobacco [...] 06/03/2022 Office Visit Rheumatology Benny Solano MD [facility] er [address] [place], [place] [address] (Wo rk) documented as of this encounter Visit Diagnoses Not on filedocumented in this encounter Care Teams Oxidation Operator Relationship Specialty Start Date End Date Anthony Samaniego MD PCP - General 07/16/[address] [place] [address] documented as of this encounter
--- OUTSIDE RECORDS SUMMARY | 2022-05-13 01:46 | XMS_ITS | Encounter Summary ---
:1960 Author Organization [facility] [place] [address] Care Team Providers Name Role Phone Anthony Samaniego MD Primary Care Provider Encounter Details Date Type Department Care Team Description 08/28/2018 Telephone Gastroenterology at [facility] [place] Roberta Dempsey, [facility] [place] [address] Social History Tobacco Use Types Packs/Day [...] this encounter Miscellaneous Notes Telephone Encounter - Roberta Dempsey RN - 08/29/2018 12:05 PM EST Ai returns call. She wanted to update Dr. Cain on events after her CT scan 08/22. She ended up at her local ED with intractable vomiting. She was given several different antiemetics and fluids and released. She is very wary of the other test that Dr. Cain wants her to have and would like to hold off until after the new year as this is the busiest time of year for her at work. She is also curious as to the results of her CT scan. They are scanned in Telephone Encounter - Roberta Dempsey RN - 08/28/2018 1:35 PM EST Call placed to Ai in response to a voice mail left by her. No answer, message left for return call documented in this encounter Plan of Treatment Upcoming Encounters Date Type Specialty Care Team Description 06/03/2022 Office Visit Rheumatology Benny Solano MD [facility] [address] [place], [place] [address] (Wo rk) documented as of this encounter Visit Diagnoses Not on filedocumented in this encounter Care Teams Field Trainer Relationship Specialty Start Date End Date Anthony Samaniego MD PCP - General 07/16/[address] [place] [address] documented as of this encounter
--- OUTSIDE RECORDS SUMMARY | 2022-05-13 01:46 | XMS_ITS | Encounter Summary ---
:1960 [place] [address] Care Team Providers Name Role Phone Anthony Samaniego MD Primary Care Provider [phone] Encounter Details Date Type Department Care Team Description 07/27/2015 Hospital Encounter Radiology Library at [facility], [place] [address] Social History Tobacco Use Types Packs/Day [...] Office Visit Rheumatology Benny Solano MD [facility] [address] [place], [place] [address] (Wo rk) documented as of this encounter Procedures Procedure Name Priority Date/Time Associated Diagnosis Comme nts FILM LIBRARY Routine 07/27/2015 12:00 AM Pain Results for this STORAGE ONLY CT EST procedure ar e in ABDOMEN AND PELVIS the resul ts section. documented in this encounter Results Film Library- Storage Only CT Abdomen & Pelvis (07/27/2015 12:00 AM EST) Specimen (Source) Anatomical Location Collection Method / Collectio n Time Received Time / Laterality Volume Narrative REJI - 09/02/2015 2:26 PM EST See PACS for result report. Dr Guerrero [facility] FILM LIBRARY ORDERABLES Performing Organization Address City/State/ZIP Code Phon e Number [place], [place] documented in this encounter Visit Diagnoses Diagnosis Pain Generalized pain documented in this encounter Care Teams Care Transition Mgr Relationship Specialty Start Date End Date Anthony Samaniego MD PCP - General 07/16/[address] [place] [address] documented as of this encounter
--- OUTSIDE RECORDS SUMMARY | 2022-05-13 01:46 | XMS_ITS | Encounter Summary ---
:1960 Author Organization [facility] [place] [address] Care Team Providers Name Role Phone Anthony Samaniego MD Primary Care Provider [phone] Encounter Details Date Type Department Care Team Description 01/15/2019 Telephone [place] [facility] [place]sey, [facility] [place] [address] Social History Tobacco Use Types Packs/Day [...] Telephone Encounter - Roberta Dempsey RN - 01/15/2019 10:25 AM EDT Patient leaves voicemail on nursing line to reschedule a swallowing test where you eat eggs. Will ask scheduling to reach out to her documented in this encounter Plan of Treatment Upcoming Encounters Date Type Specialty Care Team Description 06/03/2022 Office Visit Rheumatology Benny Solano MD [facility] [place], [place] [address] (Wo rk) documented as of this encounter Visit Diagnoses Not on filedocumented in this encounter Care Teams Floriculturist Relationship Specialty Start Date End Date Anthony Samaniego MD PCP - General 07/16/[address] [place] [address] documented as of this encounter
--- OUTSIDE RECORDS SUMMARY | 2022-05-13 01:46 | XMS_ITS | Encounter Summary ---
:1960 Author Organization [facility] [place] [address] Care Team Providers Name Role Phone Anthony Samaniego MD Primary Care Provider [phone] Reason for Visit Reason Comments Follow-up Encounter Details Date Type Department Care Team Description 07/16/2014 Follow-Up Gastroenterology at [facility] Keyon Cantu, Abdominal pain [facility] Joshua lizarraga MD (Primary Dx) [place] [address] [facility] [phone] CENTER GASTROENTEROLOGY [place], [place] [address] Social History Tobacco Use Types Packs/Day Years Used Date Never Smoker Smokeless Tobacco: Never Used Alcohol Use Standard Drinks/Week Comments Yes 1 (1 standard drink = 0.6 oz pure alcoho l) Sex Assigned at Date Recorded Not on file documented as of this encounter Last Filed Vital Signs Vital Sign Reading Time Taken Comments Blood Pressure 138/81 07/16/2014 12:55 PM EDT Pulse 70 07/16/2014 12:55 PM EDT Temperature - - Respiratory Rate - - Oxygen Saturation - - Inhaled Oxygen Concentration - - Weight 102.5 kg (226 lb) 07/16/2014 12:55 PM EDT Height 157.5 cm (5' 2) 07/16/2014 12:55 PM EDT Body Mass Index 41.34 07/16/2014 12:55 PM EDT documented in this encounter Progress Notes Keyon Cantu MD - 07/16/2014 12:57 PM EDT Problems: 1. Celiac disease. -Chronic dyspeptic symptoms. EGD, Dr. Figueroa, 2007 normal. Biopsies of duodenum normal. -Repeat EGD April 2010, Alondra. EGD: No scalloping but villi not well visualized. Pathology: Villous atrophy and inflammation consistent with celiac disease. -On a gluten-free diet since, TTG negative on diet 07/06 -low FE, normal cbc 2. Chronic constipation. Mirlax started 07/06, sx so stopped. Controlled with stool softeners -Sitz marhker study 2007 no markers after 5 days 3. Depression. 4. Status post C-sections in 1981 and 1984. 5. Status post cholecystectomy, 10/15/11. Cholecystitis but no Stones. 6. RLQ pain CT scan [facility], normal Ultrasound, ovarian cyst stable MRE 06/2013 Normal 7. CRC mother, last colo 2006 8. [place] 02/06/13 Normal, EGD Normal, duodenal bx normal no sprue 9. S/p lap, right oopherectomy CLARIFICATION NEEDED Subjective: I am seeing Ai Morrison in followup. She carries a diagnosis of chronic constipation, dyspeptic complaints, possible celiac disease, and chronic right lower quadrant pain. She has had a recent workup in the last couple of years with upper and lower endoscopies, which have been negative; diagnostic laparoscopy; and recent MRE, which was essentially negative. She again feels that there was an abnormality seen of her small bowel when a surgeon did surgery on her. She has also had cystoscopies. She claims that things were pressing on her bladder, by their report. She moves her bowels every other day and needs to take something to move them, stool softeners. She has recently been given Amitiza, which caused diarrhea; she is not taking it any longer. She has several questions and desires pill endoscopy, digestive aids, and other digestive studies. We had a long discussion regarding the nature of her complaints. Physical Exam: She looks well, in no acute distress. Her lungs are clear to auscultation. Heart: Regular rate and rhythm. Abdomen: Soft, nondistended. There is tenderness deep in the right lower quadrant/right groin area. Extremities are without edema, cyanosis, or clubbing. Impression: Patient with chronic abdominal pain, most likely functional in origin. An MRE last year was negative. There was a questionable borderline enlarged pelvic lymph node, but no small bowel abnormality was noted. I discussed the nature of her constipation, and this is the likely etiology for her discomfort, as well as irritable bowel syndrome. I explained that a capsule endoscopy is not really indicated for her current symptoms, nor would it be covered by insurance. Followup CT scan of the abdomen and pelvis is reasonable; I doubt it will show any pathology. We will perform it to rule out enlarging lymph nodes, and to rule out any abdominal wall or inguinal hernia. I have also suggested she try the Amitiza she is on for a month. I have also given her a 30-day supply voucher for Linzess, which she also has a prescription for from her primary doctor. vi documented in this encounter Plan of Treatment Upcoming Encounters Date Type Specialty Care Team Description 06/03/2022 Office Visit Rheumatology Benny Solano MD [facility] [address] [place], [place] [address] (Wo rk) documented as of this encounter Visit Diagnoses Diagnosis Abdominal pain - Primary Abdominal pain, unspecified site documented in this encounter Care Teams Heat And Frost Insulator Relationship Specialty Start Date End Date Anthony Samaniego MD PCP - General 07/16/[address] [place] [address] documented as of this encounter
--- OUTSIDE RECORDS SUMMARY | 2022-05-13 01:46 | XMS_ITS | Encounter Summary ---
:1960 Author Organization [place] [address] Care Team Providers Name Role Phone Anthony Samaniego MD Primary Care Provider [phone] Reason for Visit Reason Onset Date Comments Medication Refill 05/17/2017 Encounter Details Date Type Department Care Team Description 05/17/2017 Refill Gastroenterology at [facility] [place] Roberta Dempsey, [place] [address] Social History Tobacco Use Types Packs/Day [...] encounter Miscellaneous Notes Telephone Encounter - Roberta Dempsey, RN - 05/17/2017 11:32 AM EDT From: Ai Morrison To: Elba Cain MD Sent: 05/17/2017 11:14 AM EDT Subject: Medication Renewal Request Original authorizing provider: MD Ai ROWE would like a refill of the following medications: RIFAXIMIN 550 mg Tablet [ELBA CAIN MD] Preferred pharmacy: [phone] Comment: I'm requesting a renewal since I'm having recurring symptoms and was hoping to not have to have another hydrogen breath test... thank you [phone] Ai Morrison documented in this encounter Plan of Treatment Upcoming Encounters Date Type Specialty Care Team Description 06/03/2022 Office Visit Rheumatology Benny Solano MD [facility] [address] [place], [place] [address] (Wo rk) documented as of this encounter Visit Diagnoses Not on filedocumented in this encounter Care Teams Rv Repair Technician Relationship Specialty Start Date End Date Anthony Samaniego MD PCP - General 07/16/[address] [place] [address] documented as of this encounter
--- OUTSIDE RECORDS SUMMARY | 2022-05-13 01:46 | XMS_ITS | Encounter Summary ---
:1960 Author Organization [facility] [place] [address] Care Team Providers Name Role Phone Anthony Samaniego MD Primary Care Provider [phone] Encounter Details Date Type Department Care Team Description 11/02/2018 Telephone Gastroenterology at [facility] [place] [address] Social History Tobacco Use Types Packs/Day [...] Notes Telephone Encounter - Doris Soria - 11/02/2018 4:01 PM EST Called pt to schedule ARM, but she doesn't recall talking to Dr. Cain about this test and didn't want to schedule until she heard from him. I messaged Dr. Gómez to please contact pt via portal to let herknow the reason for the ARM. Pt is also going to get a hepatology referral and see one of hepatologyproviders. -bcpricilla documented in this encounter Plan of Treatment Upcoming Encounters Date Type Specialty Care Team Description 06/03/2022 Office Visit Rheumatology Benny Solano MD [facility] [place] [address] (Wo rk) documented as of this encounter Visit Diagnoses Not on filedocumented in this encounter Care Teams Hiv Nurse Relationship Specialty Start Date End Date Anthony Samaniego MD PCP - General 07/16/[address] [place] [address] documented as of this encounter
--- OUTSIDE RECORDS SUMMARY | 2022-05-13 01:46 | XMS_ITS | Encounter Summary ---
:1960 Author Organization [facility] [place] [address] Care Team Providers Name Role Phone Vasyl Whittaker Primary Care Provider Reason for Visit Reason Comments Follow-up Encounter Details Date Type Department Care Team Description 07/18/2013 Follow-Up Gastroenterology at [facility] Keyon Cantu, Celiac disease [facility] Joshua lizarraga MD (Primary Dx) [place] [address] [facility] [phone] CENTER GASTROENTEROLOGY [place] [address] Social History Tobacco Use Types Packs/Day Years Used Date Never Smoker Smokeless Tobacco: Never Used Alcohol Use Standard Drinks/Week Comments Yes 1 (1 standard drink = 0.6 oz pure alcoho l) Sex Assigned at Date Recorded Not on file documented as of this encounter Last Filed Vital Signs Vital Sign Reading Time Taken Comments Blood Pressure 131/68 07/18/2013 4:01 PM EDT Pulse 84 07/18/2013 4:01 PM EDT Temperature - - Respiratory Rate - - Oxygen Saturation - - Inhaled Oxygen Concentration - - Weight 93 kg (205 lb) 07/18/2013 4:01 PM EDT Height 157.5 cm (5' 2) 07/18/2013 4:01 PM EDT Body Mass Index 37.49 07/18/2013 4:01 PM EDT documented in this encounter Progress Notes Keyon Cantu MD - 07/18/2013 4:26 PM EDT Problems: 1. Celiac disease. -Chronic [...] no Stones. 6. RLQ pain CT scan [facility], normal Ultrasound, ovarian cyst stable 7. CRC mother, last colo 2006 8. [place] 02/06/13 Normal, EGD Normal, duodenal bx normal no sprue 9. S/p lap, right oopherectomy CLARIFICATION NEEDED Subjective: I am seeing Ai Morrison in followup for the third visit. She carries the diagnosis of chronic constipation, dyspeptic complaints, possible celiac disease, right lower quadrant pain. I performed an upper and lower endoscopy on her on February 06, which were normal. She said that she had pain after the procedure, although the pain was the indication for the procedure. She then underwent a diagnostic laparoscopy, had right oophorectomy. I have read the operative report, which she brings today. There is no mention of any small-bowel abnormality, although she says that her small bowel is inflamed according to the surgeon. She also had cystoscopy looking for interstitial cystitis. She tells me that the urologist felt that there was something pushing on her bladder extrinsically. She had a CT scan in [facility] this report. She relates that it was normal. Her pain in the lower abdomen is constant and is not made better or worse by defecation. She tends to be on the chronic constipated side. She feels her MiraLAX is not affective. She is taking some Senokot and stool softeners. On physical exam, she looks well, in no acute distress. Lungs are clear to auscultation. Heart: Regular rhythm. Abdomen: Soft, nondistended, tender hypogastric area diffusely. Extremities without edema, cyanosis, or clubbing. Impression: Patient with chronic constipation on suboptimal bowel regimen and chronic right lower quadrant pain. I feel this pain is likely functional in origin however will get an MRE to assess for any small-bowel abnormality. Colonoscopy was normal with good view of the terminal ileum. I have encouraged her to start taking MiraLAX two glasses a day in conjunction with her Senokot. She requests Cytotec and a new IBS constipation drug. I counseled her against the use of Cytotec at least until we get the MRE back and will try the above-mentioned bowel regimen prior to consideration of new IBS-type drugs. Subjective: documented in this encounter Plan of Treatment Upcoming Encounters Date Type Specialty Care Team Description 06/03/2022 Office Visit Rheumatology Benny Solano MD [facility] [address], [place] [address] (Wo rk) documented as of this encounter Visit Diagnoses Diagnosis Celiac disease - Primary documented in this encounter Care Teams Electric Welder Relationship Specialty Start Date End Date Vasyl Whittaker DO PCP - General 08/17/10 07/15/14 [address] [place] [address] documented as of this encounter
--- OUTSIDE RECORDS SUMMARY | 2022-05-13 01:46 | XMS_ITS | Encounter Summary ---
:1960 Author Organization [facility] [place] [address] Care Team Providers Name Role Phone Anthony Samaniego MD Primary Care Provider [phone] Reason for Visit Diagnostic Test (Routine) - Closed Specialty Diagnoses / Procedures Referred By Contact Refer red To Contact Radiology Diagnoses Celiac disease/sprue Chronic constipation Sjogren's syndrome, with unspecified organ involvement Luca Cain MD [facility] Rad Nuclear Med Procedures NM Gastric Emptying Scan [facility] [place] [address] [place] [address] Fax: Referral ID Status Reason Start Date Expiration Date Visits V isits Requested Authorized [id number] Closed Specialty 08/06/2018 08/06/2019 1 1 Service Requested Encounter Details Date Type Department Care Team Description 01/23/2019 Hospital Encounter Nuclear Medicine at [facility] Mary Hitchcock MD [facility] [address] [place] [address] [place] [address] [phone] (Wo rk) Social History Tobacco Use Types [...] Date End Date PREVIDENT 5000 DRY MOUTH 1.1 nightly. 0 019 % Gel DOCUSATE CALCIUM (STOOL Take by mouth as 0 SOFTENER ORAL) needed. ibuprofen (ADVIL;MOTRIN) 800 Take 800 mg by 0 11/26/2021 mg tablet mouth every 6 hours as needed. hydroxychloroquine Take 1 tablet by 60 tablet 3 01/23/2019 04/23/2019 (PLAQUENIL) 200 mg Tablet mouth 2 times daily for 90 days. cholecalciferol, Vitamin D3, Take 1 capsule 6 capsule 0 09/201806/12/2019 50,000 unit Capsule by mouth once monthly cevimeline (EVOXAC) 30 mg Take 1 capsule 90 capsule 3 201803/24/2019 Capsule by mouth 3 times daily. documented as of this encounter Plan of Treatment Upcoming Encounters Date Type Specialty Care Team Description 06/03/2022 Office Visit Rheumatology Benny Solano MD [facility] [address], [place] [address] (Wo rk) documented as of this encounter Procedures Procedure Name Priority Date/Time Associated Diagnosis Comme [facility] NM GASTRIC EMPTYING Routine 01/23/2019 12:25 PM [...] on filedocumented in this encounter Care Teams Multimedia Author Relationship Specialty Start Date End Date Anthony Samaniego MD PCP - General 07/16/[address] [place] [address] documented as of this encounter
--- OUTSIDE RECORDS SUMMARY | 2022-05-13 01:46 | XMS_ITS | Encounter Summary ---
:1960 Author Organization [facility] [place] [address] Care Team Providers Name Role Phone Panfilo, Vasyl DAVIES Primary Care Provider Encounter Details Date Type Department Care Team Description 07/24/2013 [place] [facility] [place] Cantu, Celiac disease [facility] [place] [address] [facility] [place], [place] [address] Social History Tobacco Use Types [...] mouth daily. documented as of this encounter Miscellaneous Notes Miscellaneous - Provider, Landy - 08/19/2013 1:21 PM EST documented in this encounter Plan of Treatment Upcoming Encounters Date Type Specialty Care Team Description 06/03/2022 Office Visit Rheumatology Benny Solano MD [address] [facility] [address] [place], [place] [address] (Wo rk) documented as of this encounter Procedures Procedure Name Priority Date/Time Associated Comments Diagnosis MRI ENTEROGRAPHY Routine 07/24/2013 5:53 PM Celiac disease Res ults for this WITH/WO CONTRAST EDT procedure a re in the results section. documented in this encounter Results MRI enterography with/WO contrast (07/24/2013 5:53 PM EDT) Anatomical Region Laterality Modality Abdomen Magnetic Resonance Specimen (Source) Anatomical Collection Method Collection Time Re ceived Time Location / / Volume Laterality 07/24/2013 5:53 PM EDT Narrative 07/25/2013 9:38 AM EDT Examination MR Enterography With and Without Contras t Clinical History RLQ pain ?? r/o inflammation in small intestine Comparison CT of the abdomen and pelvis 05/10/2010. Technique Routine multiplanar MR enterography was performed before and after administration of 19 mL Magnevist IV con trast without complication. Findings The small bowel and colon are unremarkab le. ??There is normal peristalsis and no evidence of transmural inflammation, mes enteric inflammatory stranding, or bowel wall thickening. A single borderli ne enlarged lymph node is present in the deep pelvis measuring 11 mm (series 6, image 10). No other enlarged lymph nodes are identified. A left adrenal akilah noma is slightly decreased in size compared with the prior CT, now measurin g 29 x 21 mm. Adrenal glands are otherwise unremarkable. The visualized p ortion of the liver is unremarkable with no intra or extrahepatic biliary du ctal dilatation. The patient is post cholecystostomy since the prior study. T he spleen, kidneys, and pancreas are unremarkable. No pleural effusions in th e visualized portion the lungs. Mild degenerative bone marrow signal changes are seen in the visualized thoracolumbar spine and pelvis with no a ggressive osseous lesions identified. ?? Impression ? 1. No evidence of inflammatory cleopatra wel disease or acute finding to explain the patient's symptoms. ? 2. Stable benign left adrenal akilah noma. ? 3. Incidental single borderline e nlarged deep pelvic lymph node. Film and interpretation reviewed by the attending Procedure Note Severo Colmenares MD - 07/25/2013Form atting of this note might be different from the original. Examination MR Enterography With and Without Contras t Clinical History RLQ pain r/o inflammation in small intestine Comparison CT of the abdomen and pelvis 05/10/2010. Technique Routine multiplanar MR enterography was performed before and after administration of 19 mL Magnevist IV con trast without complication. Findings The small bowel and colon are unremarkab le. There is normal peristalsis and no evidence of transmural inflammation, mes enteric inflammatory stranding, or bowel wall thickening. A single borderli ne enlarged lymph node is present in the deep pelvis measuring 11 mm (series 6, image 10). No other enlarged lymph nodes are identified. A left adrenal akilah noma is slightly decreased in size compared with the prior CT, now measurin g 29 x 21 mm. Adrenal glands are otherwise unremarkable. The visualized p ortion of the liver is unremarkable with no intra or extrahepatic biliary du ctal dilatation. The patient is post cholecystostomy since the prior study. T he spleen, kidneys, and pancreas are unremarkable. No pleural effusions in th e visualized portion the lungs. Mild degenerative bone marrow signal changes are seen in the visualized thoracolumbar spine and pelvis with no a ggressive osseous lesions identified. Impression 1. No evidence of inflammatory bowel di sease or acute finding to explain the patient's symptoms. 2. Stable benign left adrenal adenoma. 3. Incidental single borderline enlarge d deep pelvic lymph node. Film and interpretation reviewed by the attending Keyon Cantu MD IMG MRI ORDERABLES documented in this encounter Visit Diagnoses Diagnosis Celiac disease documented in this encounter Care Teams Waste Machine Tender Relationship Specialty Start Date End Date Vasyl Whittaker DO PCP - General 08/17/10 07/15/[address] [place] [address] documented as of this encounter
--- OUTSIDE RECORDS SUMMARY | 2022-05-13 01:46 | XMS_ITS | Encounter Summary ---
:1960 Author Organization [facility] [place] [address] Care Team Providers Name Role Phone Anthony Samaniego MD Primary Care Provider [phone] Encounter Details Date Type Department Care Team Description 10/24/2018 Office Visit Rheumatology at [facility] Patty Hebert, Abnormal blood chemistry; [facility] Sjogren's syndrome, with unspecified org an involvement; [facility] Arthralgia, unspecified join t; [place] [address] Sicca syndrome; [phone] Rheumatology Dep t Vitamin D deficiency; [place], [place] [address] Fatigue, unspecified type; [phone] Delayed gastric emptying (Work) Social History Tobacco Use Types Packs/Day [...] Sign Reading Time Taken Comments Blood Pressure 152/80 10/24/2018 8:40 AM EST Pulse 71 10/24/2018 8:40 AM EST Temperature 36.5 ??C (97.7 ??F) 10/24/2018 8:40 AM EST Respiratory Rate - - Oxygen Saturation 100% 10/24/2018 8:40 AM EST Inhaled Oxygen Concentration - - Weight 108.1 kg (238 lb 6.4 oz) 10/24/2018 8:40 AM EST Height 157.5 cm (5' 2) 10/24/2018 8:40 AM EST Body Mass Index 43.6 10/24/2018 8:40 AM EST documented in this encounter Progress Notes Patty Hebert MD - 10/24/2018 9:00 AM EST Outpatient Rheumatology Follow-up Note HPI: Ms. 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 Reportedly, here for evaluation of fatigue, arthralgias. Endorses reading about Sjogren's disease. Dry eyes and dry mouth and wonders if she has Sjogren's disease, onset of symptoms years ago (about 2010) gradually worsening since July 2018. Started prescription tooth paste, frequent sips of water, sugar free candy. Had two small decays. Does not use artificial tears. Endorses has hard time at night during driving. Noticed sharp pain in the left salivary gland area. Noticed burning sensation in the feet about a week ago. Feet felt cold. Also has right upper quadrant abdominal pain she has celiac disease with predominantly constipation.Morbid obesity Joint pain is the most bothering symptom. Knees, hips, hands, shoulders, ankles, feet, order of pain. Takes motrin 800 mg tid daily Interim, last seen in October. Between travel and rescheduling lip biopsy, she cancelled appointment previous appointment. S/P minor salivary gland biopsy in 05/2018, positive for Sjogren's Dryness is horrible. Fatigue is worse Wondering about lubricant cream to eyes at night. Has follow up with Ophthalmology. Decreased GI motility. Known h/o SIBO and delayed gastric emptying. No evidence of dry cough, shortness of breath. I believe joint pain in knees, ankles, feet ( long duration standing because of profession) is from osteoarthritis. No evidence of swelling. More of bone pain. Stiffness lasts for 5 minutes or so. She would like to try HCQ in place of ibuprofen 800 mg bid. Reportedly did not take ibuprofen as 1 day and had difficulty walking. PMH: Celiac disease biopsy-proven, follows with GI [...] smoker. 1 drink per week. Works as history department chair for about 40 years. Family Hx: PGM [...] frequency, urgency/ Musculoskeletal: per HPI Physical Exam: Gen: Patient is awake, alert and oriented x 3, in no distress Skin: warm and dry, no rheumatologic rashes Lymph: no cervical or submandibular adenopathy Thyroid: no nodules or thyromegaly Mouth: moist mucous membranes, no oral ulcers Eyes: normal sclerae Heart: regular rate, no murmurs, rubs or gallops Lungs: clear to auscultation b/l Spine: normal ROM and no tenderness Musculoskeletal: No active synovitis. 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 B/L knee crepitus R>L FROM in all joints. NO lymphadenopathy 09/11 FM tender points. Labs: 10/25/2017 CBC WNL, Elevated MCV, around 96 [...] (40-104) Folic acid vitamin B12 AME (ESTRELLA) PUBLICATIONS WRITER 0.9 dsDNA CCP Rx C3-C4 SPEP TSH [...] with oral and IV contrast at [facility] Oral contrast seen in the stomach through [...] increased stool. No acute inflammatory changes identified. Impression/recommendations: Ms. 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 Reportedly, here for evaluation of fatigue, arthralgias. Referred by PCP for evaluation of dry eyes and dry mouth. During dental appointment, she was noticed to have dry mouth and a question of Sjogren's syndrome was was brought up. RUQ pain, chronic since surgery for cholecystectomy about 5 years ago ROS otherwise negative for CTD, Mouth sores (uncomfortable) lasting for 2 days intermittently since July. No evidence of inflammatory arthritis. Fatigue for one month prior to initial visit in 10/2017. Most bothering is fatigue and arthralgias. She has features of connective tissue disease such as Sjogren's especially dry eyes dry mouth, fatigue, arthralgias, mouth sores. Osteoarthritis of the knees Sjogren's syndrome(SS) Serologies negative. 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 Dry eyes, dry mouth Conservative measures including preservative-free artificial tears, flaxseed oil, Frequent sips of water, Biotene mouthwash/spray, prescription toothpaste. Started cevimeline 30 mg tid (patient can start with once or twice and see how she does) discussed about the side effects. Recheck vitamin D level. Right quadriceps strengthening exercises. Known history of delayed gastric emptying/SIBO Elevated alkaline phosphatase. Check antimitochondrial antibody Given association of primary biliary cholangitis with Sjogren's. Fatigue, arthralgias, sicca, GI manifestations, ? Peripheral neuropathy Arthralgias more often with SS than arthritis. Continue to monitor, starting HCQ. Patient would like to try hydroxychloroquine 200 mg twice daily. Currently taking ibuprofen 800 mg twice daily with relief. Elevated alphos. Delayed gastric emptying. Celiac disease.No evidence of dysphagia. Gastric emptyingmay be delayed as a result of autonomic dysfunction. GI manifestations in SS include dysphagia, nausea, dyspepsia and gastritis, celiac disease hepatic abnormalities (and usually) subclinical pancreatic disease. SS is associated with hepatic abnormalities including abnormal tests and histological changes of primary biliary cholangitis(PBC) or autoimmune hepatitis(AIH) LFT abnormalities can be hepatocellular or predominantly cholestatic in pattern. However, clinicallyovert PBC is found in less than 2% of SS patients Antimitochondrial and anti-smooth muscle antibodies were present, respectively 8 and 62% of patients, raising the possibility that subclinical autoimmune liver disease is more common in SS, however notall patients with SS with antimitochondrial antibodies have clinical evidence of liver disease. AMA a ntibodies are also associated with Raynaud's phenomenon, hypogammaglobulinemia and peripheral neuropathy in SS Subclinical involvement pancreas has been documented in several studies Celiac disease may be more prevalent in patients with SS than in the general population. Consider, Antiparietal cell antibodies, immunoglobulins, cryoglobulins, complements, amylase, lipase, centromere antibody Check for centromere antibody. No h/o Raynaud's Peripheral neuropathy is about 10% of patients Discussed about the increased risk of non-Hodgkin's lymphoma compared with the general population upto 5% Reportedly patient had significant vomiting after receiving oral contrast for CT abdomen pelvis in July. Gastric emptying scan not yet done. RTC in 2 months. Planning vacation in December to [facility] 10/24/18 ESR 26, CRP 2.1 Normal bicarbonate, creatinine(no evidence of RTA) Urine analysis negative for protein, blood, trace leukocytes Antimitochondrial antibody, anti-smooth muscle antibody pending Alkaline phosphatase 120, normal LFTs otherwise Add vitamin D level documented in this encounter Plan of Treatment Upcoming Encounters Date Type Specialty Care Team Description 06/03/2022 Office Visit Rheumatology Benny Solano MD [facility] [address] [place] [place] [address] (Wo rk) documented as of this encounter Procedures Procedure Name Priority Date/Time Associated Comments Diagnosis URINALYSIS MICROSCOPIC Routine 10/24/2018 10:10 R esults for this EXAM AM EST procedure are i n the results section. URINALYSIS WITH REFLEX Routine 10/24/2018 10:10 Sjogren's synd felicitas, Results for this CULTURE AM EST with unspecified procedure a re in organ involvement the result s section. CRP, ACUTE Routine 10/24/2018 10:01 Abnormal blood Results f or this INFLAMMATION AM EST chemistry procedure are in Sjogren's syndrome, the resu lts with unspecified section. organ involvemen t Arthralgia, unspecified join t Sicca syndrome HEMOGRAM Routine 10/24/2018 10:01 Abnormal blood Results f or this AM EST chemistry procedure are in Sjogren's syndrome, the resu lts with unspecified section. organ involvemen t Arthralgia, unspecified join t Sicca syndrome DIFFERENTIAL, Routine 10/24/2018 10:01 Abnormal blood Results for this AUTOMATED AM EST chemistry procedure are in Sjogren's syndrome, the resu lts with unspecified section. organ involvemen t Arthralgia, unspecified join t Sicca syndrome MITOCHONDRIAL Routine 10/24/2018 10:01 Results fo r this ANTIBODY, M2 AM EST procedure are i n the results section. VITAMIN D, 25-HYDROXY Routine 10/24/2018 10:01 Re sults for this AM EST procedure are i n the results section. SMOOTH MUSCLE ANTIBODY Routine 10/24/2018 10:01 R esults for this AM EST procedure are i n the results section. SEDIMENTATION RATE Routine 10/24/2018 10:01 Abnormal blood Res ults for this AM EST chemistry procedure are in Sjogren's syndrome, the resu lts with unspecified section. organ involvemen t Arthralgia, unspecified join t Sicca syndrome CBC (WITH DIFF) Routine 10/24/2018 10:01 Abnormal blood AM EST chemistry Sjogren's syndrome, with unspecified organ involvemen t Arthralgia, unspecified join t Sicca syndrome COMPREHENSIVE Routine 10/24/2018 10:01 Abnormal blood Results for this METABOLIC PANEL AM EST chemistry procedure are in (NON-FASTING) Sjogren's syndrome, the res ults with unspecified section. organ involvemen t Arthralgia, unspecified join t Sicca syndrome documented in this encounter Results Urinalysis Microscopic Exam (10/24/2018 10:10 AM EST) P athologist Signature RBC UA <1 0 - 4 /HPF [facility] WBC UA 1 0 - 5 /HPF [facility] Squam Epith UA <1 <=4 /HPF [facility] Specimen Anatomical Collection Method Collection Time Receive d Time (Source) Location / / Volume Laterality Urine specimen 10/24/2018 10:10 9 (specimen) AM EST 10:19 AM EST Resulting Agency Comment Spec In Lab Patty Hebert MD URINE ORDERABLES Performing Organization Address City/State/[place] [address] (ABNORMAL) Urinalysis with reflex Culture (10/24/2018 10:10 AM EST) Patholo gist Method Time Signature Glucose UA Negative Negative [facility] mg/dL [facility] Protein UA Negative Negative [facility] mg/dL [facility] Bilirubin UA Negative Negative [facility] mg/dL [facility] Comment: Clinical correlation required for positi ve Urine Bilirubin results as false positive may occur with some drugs and d rug related products. If a false positive is suspected a serum total bili collazo should be considered if clinically indicated. Urobilinogen UA Normal Normal mg/dL [facility] pH UA 7.0 5.0 - 8.0 [facility] Blood UA Negative Negative mg/dL [facility] Ketones UA Negative Negative mg/dL [facility] Nitrite UA Negative Negative [facility] Leukocytes UA Trace (A) Negative [facility] LAB[facility]ORY Appearance UA Clear Clear [facility] Spec [place] UA 1.015 1.002 - 1.030 [facility] Color UA Yellow Yellow [facility] Culture Reflexed No [facility] Specimen Anatomical Collection Method Collection Time Receive d Time (Source) Location / / Volume Laterality Urine specimen 10/24/2018 10:10 9 (specimen) AM EST 10:19 AM EST Resulting Agency Comment Spec In Lab Patty Hebert MD URINE ORDERABLES Performing Organization Address City/State/[place] [address] Vitamin D, 25-Hydroxy (10/24/2018 10:01 AM EST) P athologist Signature 25-OH Vit D 30 30 - 100 [facility] Total ng/mL [facility] Comment: Deficient <10 ng/mL Insufficient 10 to 29 ng/mL Sufficient 30 to 100 ng/mL Potential Intoxication >100 ng/mL According to the [place] National Osteoporosi s Foundation, Vitamin D concentrations >30 ng/mL are sufficient to protect bone health. ??The National Kidney Foundation has similarly stated that pat ients with Vitamin D concentrations <30ng/mL should be considered to be insu fficient or deficient. http://WorldDesk.com/nkf-guidelines http://WorldDesk.Selventa/nejm-VitD The [employer] Vitamin D Immunoassay detec ts both 25-OH Vitamin D2 and 25-OH Vitamin D3, but only a total Vitamin D c oncentration is reported. Specimen Anatomical Collection Method Collection Time Receive d Time (Source) Location / / Volume Laterality Blood specimen Venous Draw / 10/24/2018 10:10/25/19 19 7:18 (specimen) Unknown AM EST AM EST Resulting Agency Comment Spec In Lab Patty Hebert MD CHEMISTRY ORDERABLES Performing Organization Address City/[facility]/ZIP [facility] Phon e Number [address] Mitochondrial Antibody, M2 (10/24/2018 10:01 AM EST) P athologist Signature Mitochon Ab <0.1 <0.1 [facility] (Negative) [facility] Comment: Test Performed by: [facility] [place] [facility] [place] [employer] [facility] [place] [address] Specimen Anatomical Collection Method Collection Time Receive d Time (Source) Location / / Volume Laterality Blood specimen Venous Draw / 10/24/2018 10:10/24/19 19 2:25 (specimen) Unknown AM EST PM EST Resulting Agency Comment Spec In Lab Patty Hebert MD IMMUNOLOGY ORDERABLES Performing Organization Address City/[facility]/ZIP Code Phon e Number [address] Smooth Muscle Antibody (10/24/2018 10:01 AM EST) P athologist Signature Sm Muscle Ab Negative Negative [facility] Comment: ADDITIONAL INFORMATIO N This test was developed and its performa nce characteristics determined by [facility] in a manner co nsistent with CLIA requirements. This test has not been anna ared or approved by the U.S. Food and Drug Administration. Test Performed by: [facility] [place] [employer] [address] [place] [address] Specimen Anatomical Collection Method Collection Time Receive d Time (Source) Location / / Volume Laterality Blood specimen Venous Draw / 10/24/2018 10:10/24/19 19 2:25 (specimen) Unknown AM EST PM EST Resulting Agency Comment Spec In Lab Patty Hebert MD IMMUNOLOGY ORDERABLES Performing Organization Address City/State/ZIP Code Phon e Number [place] [id number] [facility] [address] Differential, Automated (10/24/2018 10:01 AM EST) P athologist Signature Neutrophils % 56.4 % [facility] Neutr Abs (ANC) 2.96 1.70 - [facility] 6.10 [facility] x10(3)/[facility] LABORATORY Lymphocytes % 33.3 % [facility] Lymphocytes Abs 1.8 0.9 - 3.2 [facility] x10(3)/[facility] LABORATORY Monocytes % 7.8 % [facility] Monocyte Abs 0.4 0.3 - 0.9 [facility] x10(3)/[facility] LABORATORY Eosinophils % 1.7 % [facility] Eosinophils Abs 0.1 0.0 - 0.4 [facility] x10(3)/[facility] LABORATORY Basophils % 0.6 % [facility] Basophils Abs 0.0 0.0 - 0.1 [facility] x10(3)/[facility] LABORATORY Immature Gran % 0.20 % [facility] Comment: Immature granulocytes(IG's)percentage an d absolute count will include metamyelocytes, myelocytes, and promyelo cytes. Blood smears from CBCs yielding IG's will be scanned manually for concor dance. If this scan disagrees with the automated IG or if promyelocytes are not ed, a manual differential will be performed. Anisha Gran Abs 0.01 0.00 - 0.04 x10(3)/[facility] LABORATORY Specimen Anatomical Collection Method Collection Time Receive d Time (Source) Location / / Volume Laterality Blood specimen 10/24/2018 10:01 9 (specimen) AM EST 10:24 AM EST Resulting Agency Comment Spec In Lab Patty Hebert MD HEMATOLOGY ORDERABLES Performing Organization Address City/State/[place] [address] [facility] [address] (ABNORMAL) Hemogram (10/24/2018 10:01 AM EST) Analysis Performed At Patho logist Time Signature WBC 5.2 4.0 - 9.5 [facility] x10(3)/[facility] LABORATORY RBC 3.92 (L) 4.00 - [facility] 5.21 [facility] x10(6)/[facility] LABORATORY Hemoglobin 12.8 11.7 - [facility] 15.5 gm/dL [facility] Hematocrit 37.8 35.7 - [facility] 45.8 % [facility] MCV 96.4 (H) 82.6 - [facility] 94.4 [facility] LABORATORY MCH 32.7 (H) 27.1 - [facility] 32.0 pg [facility] MCHC 33.9 31.7 - [facility] 35.0 gm/dL [facility] Platelets 265 145 - 357 [facility] x10(3)/[facility] LABORATORY RDWSD 48.9 (H) 37.0 - [facility] 46.0 [facility] LABORATORY RDWCV 13.6 11.5 - [facility] 14.1 % [facility] MPV 10.7 7.6 - 12.9 [facility] LABORATORY nRBC % Auto 0.0 % [facility] nRBC Abs Auto 0.000 0.000 - [facility] 0.000 [facility] x10(3)/[facility] LABORATORY Specimen Anatomical Collection Method Collection Time Receive d Time (Source) Location / / Volume Laterality Blood specimen 10/24/2018 10: 9 (specimen) AM EST 10:24 AM EST Resulting Agency Comment Spec In Lab Patty Hebert MD HEMATOLOGY ORDERABLES Performing Organization Address City/State/[place] [address] CRP, acute inflammation (10/24/2018 10:01 AM EST) P athologist Signature CRP 2.1 <=4.9 mg/L [facility] Specimen Anatomical Collection Method Collection Time Receive d Time (Source) Location / / Volume Laterality Blood specimen 10/24/2018 10: 9 (specimen) AM EST 10:24 AM EST Resulting Agency Comment Spec In Lab Patty Hebert MD CHEMISTRY ORDERABLES Performing Organization Address City/State/ZIP Code Phon e Number [address] (ABNORMAL) Sedimentation rate (10/24/2018 10:01 AM EST) P athologist Signature Sed Rate 26 (H) 0 - 20 [facility] mm/hr [facility] Specimen Anatomical Collection Method Collection Time Receive d Time (Source) Location / / Volume Laterality Blood specimen 10/24/2018 10:01 9 (specimen) AM EST 10:24 AM EST Resulting Agency Comment Spec In Lab Patty Hebert MD HEMATOLOGY ORDERABLES Performing Organization Address City/[facility]/ZIP Code Phon e Number [address] (ABNORMAL) Comprehensive metabolic panel (non-fasting) (10/24/2018 10:01 AM EST) athologist [facility] Glucose Lvl 93 65 - 199 [facility] mg/dL [facility] Comment: Diabetes: >=200 mg/dL plus symp toms BUN 17 8 - 18 mg/dL [facility] Creatinine 0.88 0.70 - 1.20 mg/dL [facility] Sodium 141 135 - 145 mmol/L [facility] Potassium 4.4 3.5 - 5.0 mmol/L [facility] Comment: Please note: ??Patients with WBC >100,00 0 may have falsely elevated Potassium levels. ??For accurate Potassium quantif ication in these patients send serum separator tube (gold top) for subsequent determinations. ??Contact the Clinical Chemistry Laboratory if there are any qu estions. Chloride 104 98 - 107 mmol/L [facility] CO2 26 22 - 31 mmol/L [facility] Anion Gap 11 5 - 15 mmol/L [facility] Calcium 9.1 8.5 - 10.5 mg/dL [facility] Total Protein 7.3 6.1 - 8.0 gm/dL [facility] Albumin 4.0 3.2 - 5.2 gm/dL [facility] AST 18 0 - 30 unit/L [facility] ALT 15 0 - 30 unit/L [facility] Alk Phos 120 (H) 40 - 104 unit/L [facility] Total Bilirubin 0.3 0.2 - 1.3 mg/dL [facility] Estimated GFR 72 >=60 mL/min/1.73 m?? [facility] Comment: The eGFR was calculated using the CKD-EP I equation. As with all creatinine based estimates of kidney function, eGFR values calculated with the CKD-EPI equation are not accurate in patients wi th acute kidney failure, extremes of body mass or the acutely ill. http://[employer]/IBUonlinenkf eGFR 84 >=60 mL/min/1.73 m?? [facility] Comment: The eGFR was calculated using the CKD-EP I equation. As with all creatinine based estimates of kidney function, eGFR values calculated with the CKD-EPI equation are not accurate in patients wi th acute kidney failure, extremes of body mass or the acutely ill. http://[employer]/[facility]f Specimen Anatomical Collection Method Collection Time Receive d Time (Source) Location / / Volume Laterality Blood specimen 10/24/2018 10:01 9 (specimen) AM EST 10:24 AM EST Resulting Agency Comment Spec In Lab Patty Hebert MD CHEMISTRY ORDERABLES Performing Organization Address City/State/[place] [address] documented in this encounter Visit Diagnoses Diagnosis Abnormal blood chemistry Other abnormal blood chemistry Sjogren's syndrome, with unspecified org an involvement Arthralgia, unspecified joint Sicca syndrome Vitamin D deficiency Unspecified vitamin D deficiency Fatigue, unspecified type Delayed gastric emptying Dyspepsia and other specified disorders of function of stomach documented in this encounter Care Teams Combination Building Inspector Relationship Specialty Start Date End Date Anthony Samaniego MD PCP - General 07/16/[address] [place] [address] [place] [address] documented as of this encounter
--- OUTSIDE RECORDS SUMMARY | 2022-05-13 01:46 | XMS_ITS | Encounter Summary ---
:1960 Author Organization [place] [address] Care Team Providers Name Role Phone Anthony Samaniego MD Primary Care Provider [phone] Reason for Referral Consultation (Routine) - Closed Specialty Diagnoses / Procedures Referred By Contact Refer red To Contact Dermatology Diagnoses Screening for skin cancer Alison Tejeda APRN [facility] Dermatology [facility] [address] [place] [address] [place] [address] Referral ID Status Reason Start Date Expiration Date Visits V isits Requested Authorized [id number] Closed Consult, 12/12/2018 12/12/2019 1 1 Test & Treat Encounter Details Date Type Department Care Team Description 12/12/2018 Office Visit Gastroenterology at [facility] Alison Tejeda Screening for skin [facility] [place] [address] [place] [address] [facility] [place] [address] Social History Tobacco Use Types Packs/Day Years [...] Sign Reading Time Taken Comments Blood Pressure 155/86 12/12/2018 9:44 AM EDT Pulse 70 12/12/2018 9:44 AM EDT Temperature - - Respiratory Rate - - Oxygen Saturation - - Inhaled Oxygen Concentration - - Weight 108.9 kg (240 lb) 12/12/2018 9:44 AM EDT Height 157.5 cm (5' 2) 12/12/2018 9:44 AM EDT Body Mass Index 43.9 12/12/2018 9:44 AM EDT documented in this encounter Progress Notes Alison Tejeda APRN - 12/12/2018 10:00 AM EDT Images from the original note were not included. HEPATOLOGY NEW PATIENT CONSULTATION Shelton Cates 1960 HVAC SALES ENGINEER: ALISON TEJEDA APRN PCP: Anthony Samaniego MD Requesting Provider: REASON FOR CONSULTATION Elevated liver enzymes HISTORY OF PRESENT ILLNESS Shelton Cates is a 58 y.o. year old female with hx of celiac disease and chronic constipation recently diagnosed with Sjogren's syndrome and elevate alkaline phosphate. She is concerned about her liver and presents today for evaluation. She has been having a dull aching pain in her right upper quadrant, has been present for months, butmore evident recently. She has also been vomitting recently, mostly associated with receiving oral contrast prior to her CT abdomen. She was supposed to do a nuclear medicine test after her CT scan but didn't feel up to it after her CT scan. She has been researching Sjogren's and learned there is an association with primary biliary cholangitis and autoimmune hepatitis, which have previously been checked by Dr. Hebert in September. She has gained about 50 lbs in the past 6 years. She has been trying to lose weight, but is having ahard time. She got discouraged when she didn't lose weight after walking on the treadmill daily for 6 weeks. She states she has gastroparesis, and because of this has to watch her diet. She is no longer drinking soda or sugary beverages, when she has candy they are sugar free. ROS: Constitutional: no fatigue, fever, chills. Has gained 10 lbs in past year. Eye: no visual changes ENT: no URI symptoms Cardio: no chest pain, palpitations Resp: no cough, no SOB GI: see HPI. : no dysuria Integumentary: no new rashes, no easy bruising Musculoskeletal: Pain in her knees, limits her activities. Neuro: no new numbness, weakness in extremities PAST MEDICAL/SURGICAL HISTORY Celiac disease Constipation Sjogren's disease NAFLD/MAURO MEDICATIONS Outpatient Medications Marked as Taking for the 12/12/18 encounter (Office Visit) with Alison Tejeda APRN Medication Sig Dispense Refill ??? cevimeline (EVOXAC) 30 mg Capsule Take 1 capsule by mouth 3 times daily. (Patient taking differently: Take 30 mg by mouth 2 times daily.) 90 capsule 3 ??? DOCUSATE CALCIUM (STOOL SOFTENER ORAL) Take by mouth as needed. ??? ibuprofen (ADVIL;MOTRIN) 800 mg tablet Take 800 mg by mouth every 6 hours as needed. ALLERGIES Allergies Allergen Reactions ??? Gluten Other (See Comments) constipation ??? 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 Alcohol: none Cigarettes: none FAMILY HISTORY No known hx of liver disease PHYSICAL EXAM Vitals: 12/12/18 0944 BP: 155/86 Pulse: 70 Weight: 108.9 kg (240 lb) Height: 157.5 cm (5' 2) Body mass index is 43.9 kg/m??. Gen: Well appearing, no apparent distress. Skin: no spider angiomata, no palmar erythema, no jaundice. HEENT: Sclerae anicteric, pupils equal, round, react to light. Pharynx unremarkable. Neck is supple,no adenopathy, no thyromegaly. Abdomen: Normal bowel sounds; soft, non distended. No obvious hepatosplenomegaly. No evidence of ascites Extremities: No edema. Neuro: alert and oriented x3, no asterixis or tremor. Lab Results Component Value Date WBC 5.2 10/24/2018 HGB 12.8 10/24/2018 HCT 37.8 10/24/2018 MCV 96.4 (H) 10/24/2018 PLATELET 265 10/24/2018 No results for input(s): INR in the last 168 hours. Chemistry Component Value Date/Time NA 141 10/24/2018 1001 K 4.4 10/24/2018 1001 CL 104 10/24/2018 1001 CO2 26 10/24/2018 1001 BUN 17 10/24/2018 1001 CREATININE 0.88 10/24/2018 1001 Component Value Date/Time CALCIUM 9.1 10/24/2018 1001 ALKPHOS 120 (H) 10/24/2018 1001 AST 18 10/24/2018 1001 ALT 15 10/24/2018 1001 BILITOT 0.3 10/24/2018 1001 Results for SHELTON CATES ( ) as of 12/12/2018 10:13 06/28/2012 16:04 11/15/2017 15:24 08/06/2018 17:23 10/24/2018 10:01 ALT 11 16 11 15 AST 21 18 16 18 Alk Phos 105 (H) 107 (H) 109 (H) 120 (H) Total Bilirubin 0.2 0.2 0.2 0.3 Albumin 4.3 4.0 4.3 4.0 06/28/2012 16:04 12/31/2012 10:45 Iron 43 109 TIBC 284 273 Iron Saturation 15 (L) 40 10/24/18: AMA: <0.1 (neg) ASMA: negative 11/15/17 AME: negative CT Abdomen 08/22/18: Fibroscan Results: Median kPa: 4.1 kPa Mean IQR: 12 % (goal is <30 %) Number of valid measurements: 12 (at least 10 required) Number of invalid measurements: 1 Predicted fibrosis stage: F0 CAP (dB/m): 273 Estimated steatosis grade: 2/3 % hepatocytes affected: > 66 % ASSESSMENT/PLAN Shelton Cates is a 58 y.o. female with slightly elevated alkaline phosphatase and normal ALT and AST and a normal fibroscan. Her elevated alk phos is most likely due to MAURO, as she has hepatic steatosis seen on her fibroscan today, and on her CT in July. The fact that her Alk Phos has become more elevated since 2012, which corresponds with weight gain also helps support a diagnosis of MAURO. Celiac disease can also cause a slight elevation in her liver enzymes, although this is normally in a hepatocellular pattern rather than a cholestatic pattern. Her AMA was negative, thus my suspicion for PBC is very low, and her AME and ASMA are also negative, making my suspicion for autoimmune hepatitisalso very low. Reassuringly, her fibroscan does not show any fibrosis. We discussed that her elevated alk phos was mostly likely due to fatty liver and that weight loss and diet can cause fat to come out of the liver. We set realistic weight loss goals; goal is to focus on loosing 10-15% of total body weight over a year with a target (2-3 lbs/month) by incorporating regular exercise, lifestyle modifications, healthy food choices including portion control. In addition I would recommend avoid high fructose corn syrup and artifical sweeteners. Recommendations: - Discussed dietary recommendations as above - Consider repeat fibroscan in 2-3 years if liver enzymes remain elevated to assess for progression of fibrosis. Alison Tejeda APRN Section of Gastroenterology [place] [address] Copy: Anthony Samaniego MD [address] / [facility] [address] documented in this encounter Plan of Treatment Upcoming Encounters Date Type Specialty Care Team Description 06/03/2022 Office Visit Rheumatology Benny Solano MD [facility] [place] [place] [address] (Wo rk) Scheduled Referrals Name Type Priority Associated Order Schedule Diagnoses Referral to Outpatient Referral Routine Screening for skin Or dered: Dermatology cancer 12/12/2018 documented as of this encounter Visit Diagnoses Diagnosis Screening for skin cancer Screening for malignant neoplasm of the skin documented in this encounter Care Teams Gasoline Catalyst Operator Relationship Specialty Start Date End Date Anthony Samaniego MD PCP - General 07/16/[address] [place], [place] [id number] documented as of this encounter
--- OUTSIDE RECORDS SUMMARY | 2022-05-13 01:46 | XMS_ITS | Encounter Summary ---
:1960 Author Organization [facility] [place] [address] Care Team Providers Name Role Phone Anthony Samaniego MD Primary Care Provider [phone] Reason for Visit Reason Onset Date Comments Medication Refill 06/03/2019 Encounter Details Date Type Department Care Team Description 06/03/2019 Refill Rheumatology at [facility] Graciela Torres, [place] [address] Social History Tobacco Use Types Packs/Day [...] Telephone Encounter - Graciela Torres RN - 06/03/2019 12:32 PM EDT Images from the original note were not included. Ai calls to discuss the Plaquenil. RTC to Ai and she states not much benefit from the Plaquenil and wants to know if she should continue taking it. States she has been taking Plaquenil for about 3 months. I advised to continue until her visit with Dr. Solano. Ai wants Rx for 2 weeks sent to her pharmacy and will discuss stopping Plaquenil at her visit. June 03, 2019 Benny Solano MD to Me ?? 10:12 PM Does not make sense ot fill like that She can hold th medicaiton for 2 weeks Benny Solano MD to Me ?? 10:11 PM 6 months is the cutt off for effect Benny I left a message for Ai to hold the Plaquenil for now. documented in this encounter Plan of Treatment Upcoming Encounters Date Type Specialty Care Team Description 06/03/2022 Office Visit Rheumatology Benny Solano MD [facility] [place], [place] [address] (Wo rk) documented as of this encounter Visit Diagnoses Not on filedocumented in this encounter Care Teams Network Consultant Relationship Specialty Start Date End Date Anthony Samaniego MD PCP - General 07/16/[address] [place] [address] documented as of this encounter
--- OUTSIDE RECORDS SUMMARY | 2022-05-13 01:46 | XMS_ITS | Encounter Summary ---
:1960 Author Organization [facility] [place] [address] Care Team Providers Name Role Phone Anthony Samaniego MD Primary Care Provider [phone] Encounter Details Date Type Department Care Team Description 11/14/2018 Telephone Gastroenterology at [facility] Roberta Dempsey, [facility] [place] [address] Social History Tobacco Use Types Packs/Day [...] Telephone Encounter - Roberta Dempsey RN - 11/14/2018 11:56 AM EST Call placed to Ai in response to a voicemail left by pt that she would like a call. No answer, message left documented in this encounter Plan of Treatment Upcoming Encounters Date Type Specialty Care Team Description 06/03/2022 Office Visit Rheumatology Benny Solano MD [facility] [address] [place], [place] [address] (Wo rk) documented as of this encounter Visit Diagnoses Not on filedocumented in this encounter Care Teams Foreign Language Professor Relationship Specialty Start Date End Date Anthony Samaniego MD PCP - General 07/16/[address] [place] [address] documented as of this encounter
--- OUTSIDE RECORDS SUMMARY | 2022-05-13 01:46 | XMS_ITS | Encounter Summary ---
:1960 Author Organization [facility] [place] [address] Care Team Providers Name Role Phone Anthony Samaniego MD Primary Care Provider [phone] Reason for Visit Auth/Cert Specialty Diagnoses / Procedures Referred By Contact Refer red To Contact Diagnoses diverticulitis Procedures PRO COLONOSCOPY, DIAGNOSTIC COLONOSCOPY, DIAGNOSTIC Referral ID Status Reason Start Date Expiration Date Visits Requ ested Visits Authorized [id number] 1 1 Encounter Details Date Type Department Care Team Description 10/26/2016 Surgery Gastroenterology at [facility] Keyon Cantu, COLONOSCOPY, [facility] Joshua lizarraga [place] [address] [facility] [phone] GASTROENTEROLOGY [place], [place] [address] Social History Tobacco Use Types [...] Sign Reading Time Taken Comments Blood Pressure 158/99 10/26/2016 12:40 PM EST Pulse 79 10/26/2016 12:10 PM EST Temperature - - Respiratory Rate 16 10/26/2016 12:40 PM EST Oxygen Saturation 96% 10/26/2016 12:40 PM EST Inhaled Oxygen Concentration - - Weight - - Height - - Body Mass Index - - documented in this encounter Discharge Instructions Discharge InstructionsFrancine Chandler RN - 10/26/2016 12:38 PM EST Colonoscopy What to expect after the procedure You may feel a little more gassy or bloated than usual. This is normal. You should expect the return of normal bowel function in the 2 to 3 days. Activity Because of the sedation that you received your judgement and reaction time are effected ?? Go home and rest quietly for the remainder of the day. You may resume your normal activities tomorrow. ?? Change from one position to the next slowly. You may lose your balance unexpectedly ?? Be careful on stairs, as you may be unsteady on your feet FOR THE NEXT 24 HRS ?? DO NOT DRIVE OR OPERATE ANY MACHINERY ?? DO NOT DRINK ALCOHOLIC BEVERAGES ?? DO NOT SIGN LEGAL DOCUMENTS ?? If you are a smoker: DO NOT SMOKE WHILE YOU ARE ALONE Diet ?? Start by eating small portions of foods that ordinarily will not upset your stomach . Avoid gas producing foods for the next few days ?? Be gentle with what you choose to start with ?? Drink plenty of fluids ( unless your doctor has told you not to). IV SITE-- slight redness, or tenderness is normal. You can use warm compresses if you become concerned. If the tenderness +/or redness increases or foul drainage and a red streak occurs, please contact your PCP immediately When shoud you call for help? Call 911 anytime you think you may need emergency care. For example If you pass out ( loss of consciousness) If you pass maroon or bloody stools If you have severe belly pain Call your doctor now or seek immediate medical care If your stools are black and tarlike If your stools have streaks of blood, but you did not have a biopsy or any polyps removed If you have belly pain, or your belly is swollen and firm If you vomit If you have a fever If you are very dizzy Watch closely for changes in your health, and be sure to contact your doctor if you have any problems Your doctor will let you know when you will need your next colonoscopy. The results of your test andyour risk for colorectal cancer will help your doctor decide how often you need to be checked. Monday-Monday Same Day Endo [phone]-[phone] Otherwise contact [phone] and ask to speak to the supervisor cell room post tensioning ironworker helper Follow up care is a castellano part of your treatment and safety. Be sure to make and go to all appointments, and call your doctor if you are having problems. Discharge instructions reviewed with patient who expresses understanding AttachmentsThe following attachments cannot be sent through Care Everywhere. COLONOSCOPY: POST-OP (BRITISH)documented in this encounter Medications at Time of Discharge [...] mouth daily. documented as of this encounter H&P Notes Keyon Cantu MD - 10/26/2016 11:49 AM EST Gastroenterology and Hepatology Pre-Procedure History and Physical Exam Procedure: Colonoscopy: Indication: h/o diverticultisi Patient Active Problem List Diagnosis Code ??? Celiac disease/sprue K90.0 ??? Chronic constipation K59.09 EXAM: HEENT: Airway examined, oropharynx clear Mallampati Score: II (soft palate, uvula, fauces visible) LUNGS: Clear to auscultation HEART: Regular rate and rhythm, normal S1, S2 ABDOMEN: Normal bowel sounds, soft, non tender, non distended, A/P Proceed with the planned endoscopic procedure. ASA 2 - Patient with mild systemic disease with no functional limitations Sedation Plan: moderate (conscious sedation) Risks and benefits of the procedure explained to the patient. Consent signed. documented in this encounter Plan of Treatment Upcoming Encounters Date Type Specialty Care Team Description 06/03/2022 Office Visit Rheumatology Benny Solano MD [facility] [address] [place], [place] [address] (Wo rk) documented as of this encounter Procedures Procedure Name Priority Date/Time Associated Comments Diagnosis COLONOSCOPY, 10/26/2016 11:46 diverticulitis/william DIAGNOSTIC AM EST ac disease COLONOSCOPY Routine 10/26/2016 11:38 Results for this AM EST procedure are i n the results section. documented in this encounter Results COLONOSCOPY (10/26/2016 11:38 AM EST) [facility] Method Time Signature COLONOSCOPY [facility]OVATION Endoscopy Procedure Date: 10/26/2016 11:38 AM ? Patient Name: Ai Morrison ? N: [id number] ? Date of : 1960 ? Age: 56 ? Order #: [id number] ? Instrument Name: [id number] ? Procedure: ? Colonoscopy Indications: ? S/p diverticulitis Providers: ? Keyon Cantu MD, Leeanna Richards ? DANIEL Villanueva, Severo Post MD: ?Anthony Samaniego MD Medicines: ? Midazolam 4 mg IV, Fentanyl 200 ? micrograms IV Complications: ? No immediate complications. Procedure: ? The procedure, indications, benefi ts, ? risks and alternatives were e xplained ? to the patient. Specifically ? discussed were potential ? complications including, but not ? limited to, bleeding, perfora tion, ? infection, missing a cancer, and ? adverse medication reactions. The ? patient was placed in the lef t ? lateral decubitus position, a nd a ? digital rectal exam was perfo rmed. ? The Colonoscope was inserted in the ? anus and under direct visuali zation, ? advanced to the terminal ileu m. ? Careful inspection was made a s the ? colonoscope was withdrawn. Th e ? colonoscopy was performed wit hout ? difficulty. The patient tho ated the ? procedure well. The quality o f the ? bowel preparation was evaluat ed using ? the BBPS (Ovid Bowel Prepar ation ? Scale) with scores of: Right Colon = ? 3, Transverse Colon = 3 and L eft ? Colon = 3 (entire mucosa seen well ? with no residual staining, sm all ? fragments of stool or opaque liquid). ? The total BBPS score equals 9 . Scope ? withdrawal time was 11 minute s. ? Findings: ? Multiple small and large-mouthed diverticula were ? found in the sigmoid colon and descending colon. ? The terminal ileum appeared normal. ? Internal hemorrhoids were found during retroflexion. ? The hemorrhoids were medium-sized. ? The perianal and digital rectal examinations were ? normal. ? Impression: ?- Diverticulosis in the sigmoid co latoya ? and in the descending colon. ? - The examined portion of the ileum ? was normal. ? - Internal hemorrhoids. ? - No specimens collected. Recommendation: ?- Repeat colonoscopy in 10 months fo r ? surveillance ? Attending Participation: ? I personally performed the entire procedure. I was ? present during the intraservice time as documented by ? the sedation RN. ? Keyon Cantu MD 10/26/2016 12:29:56 PM This report has been signed electronically. Number of Addenda: 0 Note Initiated On: 10/26/2016 11:38 AM Specimen (Source) Anatomical Collection Method Collection Time Re ceived Time Location / / Volume Laterality 10/26/2016 11:38 AM EST Anthony Samaniego MD GENERAL SURGICAL ORDERABLES Performing Organization Address City/State/ZIP Code Phon e Number PROVATION documented in this encounter Visit Diagnoses Not on filedocumented in this encounter Administered Medications Inactive Administered Medications - up to 3 most recent administrations Medication Order MAR Action Action Date Dose Rate Site fentaNYL 50 mcg/mL multi-dose Given 10/26/2016 11:59 AM EST 50 m cg injection ONCE PRN, Starting on Mon10/26/16 at 1150, Until Mon10/26/16 at 1457, Intra-Operative (Intra-Procedure), Routine Given 10/26/2016 11:56 AM EST 50 mcg Given 10/26/2016 11:53 AM EST 50 mcg lactated ringers infusion New Bag 10/26/2016 11:15 AM EST 50 mL/hr 50 mL/hr 50 mL/hr, Intravenous, CONTINUOUS, Starting on Mon10/26/16 at 1115, Until Mon10/26/16 at 1250, Endoscopy (Day of Procedure) midazolam (PF) (VERSED) 1 mg/mL multi-dose Given 10/26/2016 11:5 9 AM EST 1 mg injection ONCE PRN, Starting on Mon10/26/16 at 1150, Until Mon10/26/16 at 1457, Intra-Operative (Intra-Procedure), Routine Given 10/26/2016 11:56 AM EST 1 mg Given 10/26/2016 11:53 AM EST 1 mg documented in this encounter Active and Recently Administered Medications Times are shown in EST. Continuous Medication Order 10/24/2016 10/25/2016 10/26/2016 lactated ringers infusion (CANCELED) 1115 (New Bag - Provider: Zandra Prado RN) 50 mL/hr, at 50 mL/hr, Intravenous, CONT INUOUS, Starting Mon10/26/16 at 1115, Until Mon10/26/16 at 1250, Endo (Day of Procedure) PRN Medication Order 10/24/2016 10/25/2016 10/26/2016 fentaNYL 50 mcg/mL multi-dose injection (CANCELED) 1150 (Given - Provider: Leeanna Villanueva RN)1153 (Given - Provider: Leeanna Villanueva RN)1156 (Given - Provider: Leeanna Villanueva RN)1159 (Given - Provider: Leeanna Villanueva, DANIEL) ONCE PRN, Starting Mon10/26/16 at 1150, U ntil Mon10/26/16 at 1457, Intra-Operative (Intra-Procedure), Routine midazolam (PF) (VERSED) 1 mg/mL multi-dose injection (CANCELED) 1150 (Given - Provider: Leeanna Villanueva RN)1153 (Given - Provider: Leeanna Villanueva RN)1156 (Given - Provider: Leeanna Villanueva RN)1159 (Given - Provider: Leeanna Villanueva, DANIEL) ONCE PRN, Starting Mon10/26/16 at 1150, U ntil Mon10/26/16 at 1457, Intra-Operative (Intra-Procedure), Routine documented in this encounter Care Teams Developer Advocate Relationship Specialty Start Date End Date Anthony Samaniego MD PCP - General 07/16/[address] [place] [address] [address] [place] [address] documented as of this encounter
--- OUTSIDE RECORDS SUMMARY | 2022-05-13 01:46 | XMS_ITS | Encounter Summary ---
:1960 Author Organization [facility] [place] [address] Care Team Providers Name Role Phone Anthony Samaniego MD Primary Care Provider [phone] Reason for Referral Diagnostic Test (Routine) - Closed Specialty Diagnoses / Procedures Referred By Contact Refer red To Contact Radiology Diagnoses Celiac disease/sprue Chronic constipation Sjogren's syndrome, with unspecified organ involvement Luca Cain MD [facility] Nuclear Med Procedures NM Gastric Emptying Scan [facility] [place] [address] [place] [address] Fax: Referral ID Status Reason Start Date Expiration Date Visits V isits Requested Authorized [id number] Closed Specialty 08/06/2018 08/06/2019 1 1 Service Requested Encounter Details Date Type Department Care Team Description 08/06/2018 Office Visit [place] [facility] Cain Celiac disease/sprdavid; [facility] Joshua Ibrahim MD Chronic constipation; [place] [address] [facility] Sjogren's syndrome, with uns pecified organ involvement [phone] GASTROENTEROLOGY [place], [place] [address] Social History Tobacco Use Types [...] Sign Reading Time Taken Comments Blood Pressure 186/83 08/06/2018 3:40 PM EST Pulse 63 08/06/2018 3:40 PM EST Temperature - - Respiratory Rate - - Oxygen Saturation - - Inhaled Oxygen Concentration - - Weight 108 kg (238 lb 3.2 oz) 08/06/2018 3:40 PM EST Height 157.5 cm (5' 2) 08/06/2018 3:40 PM EST Body Mass Index 43.57 08/06/2018 3:40 PM EST documented in this encounter Patient Instructions Patient InstructionsLuca Cain MD - 08/06/2018 3:00 PM EST Labs today. CT Scan to assess lymph nodes Gastric emptying study, if positive see Motility team. If negative the treatment for small intestinal bacterial overgrowth (SIBO) and EGD. documented in this encounter Progress Notes Luca Cain MD - 08/06/2018 3:00 PM EST Gastroenterology Outpatient Progress Note Patient ID: Ai Morrison is a 58 y.o. female with history of celiac disease and chronic constipation who returns to clinic for ongoing symptoms, she has not been seen since August 2015.Treated forsmall intestinal bacterial overgrowth (SIBO). Patient Active Problem List Diagnosis ??? Sjogren's syndrome ??? Celiac disease/sprue ??? Chronic constipation Interim History: She continues to follow a strict gluten-free diet, continues to have significant constipation. She feels as if food does not move through her as she would expect and feels distended and bloated after eating. She continues to have abdominal oa She has been working with Rheumatology. She has recently been diagnosed with Sjogren's syndrome and is worried about ongoing fatigue and joint pain. There is also concern for mixed connective tissue disorder and possible associated gastrointestinal dysmotility. She does recall trying antibiotics neomycin and rifaximin in the past with some benefit but no resolution of her symptoms. Review of Systems Constitutional: Negative for fever and unexpected weight change. HENT: Negative for mouth sores. Eyes: Negative for pain and redness. Respiratory: Negative for cough and shortness of breath. Cardiovascular: Negative for chest pain and palpitations. Gastrointestinal: See above Genitourinary: Negative for dysuria. Musculoskeletal: Negative for joint swelling and arthralgias. Skin: Negative for rash. Neuro: negative for weakness, tingling All other systems negative except as above. Current Outpatient Medications Medication Sig Dispense Refill ??? naproxen (NAPROSYN) 500 mg Tablet Take 1 tablet by mouth 2 times daily (with meals). 60 tablet 1 ??? phenazopyridine (PYRIDIUM) 100 mg tablet Take 200 mg by mouth daily as needed. ??? DOCUSATE CALCIUM (STOOL SOFTENER ORAL) Take by mouth as needed. ??? citalopram (CELEXA) 40 mg tablet Take 40 mg by mouth daily. ??? ibuprofen (ADVIL;MOTRIN) 800 mg tablet Take 800 mg by mouth every 6 hours as needed. ??? rifAXIMin (RIFAXIMIN) 550 mg Tablet Take 1 tablet by mouth 3 times daily. (Patient not taking: Reported on 11/15/2017) 42 tablet 0 No current facility-administered medications for this visit. Physical Examination: BP 186/83 Pulse 63 Ht 157.5 cm (5' 2) Wt 108 kg (238 lb 3.2 oz) BMI 43.57 kg/m?? General: Pleasant, cooperative, NAD HEENT: NC/AT, anicteric, MMM without exudate or discharge CHEST: CTA bilaterally without wheeze, rale or rhonchi CVS: RRR, normal s1/s2 ABD: soft, non-tender, non-distended, NABS Extremities: WWP, no clubbing cyanosis or edema Skin: Warm and dry Labs: Reviewed in [facility]. Last TTG 0.7 (2014) Last EGD: 2013, normal duodenal biopsies MRE 2013: No evidence of Crohn's disease, single mildly enlarged lymph node in the pelvis CT scan abdomen pelvis 2016: Report is in scan docs from outside hospital no enlarged lymph nodes, there was concern for sigmoid thickening and diverticulitis at the time Impression: Ai Morrison is a 58 y.o. female with a history of celiac disease and chronic constipation recently diagnosed with Sjogren's syndrome. She has significant dry mouth and dry eyes with associated dental problems. She has continued to follow a gluten-free diet but also continues to struggle with constipation and postprandial abdominal bloating and distention and feels as if there is some delay in food moving through her. We discussed the fact that Sjogren's syndrome may overlap with connective tissue disorder and have some associated gastrointestinal motility dysmotility. There is certainly an overlap of Sjogren's syndrome with celiac disease as well. We discussed the fact that the diagnosis of celiac disease also does put her at risk of small bowel lymphoma. In the past there was some concern of small bowel thickening the time of laparoscopy however subsequent imaging has not shown any enlarged lymph nodes. She does not have any other alarm symptoms of significant weight loss night sweats or fevers. We discussed re-evaluation with imaging to ensure that she has not developed any bowel process. Thiswill include evaluating for evidence of lymphoma. We will also check a gastric emptying study, if positive she may have some underlying intestinal dysmotility due to autoimmune conditions. She is also due for some blood work to evaluate for malabsorption and check her TTG. Recommendations # Labs today. CBC/CMP/CRP, celiac screen # CT Scan to assess lymph nodes # Gastric emptying study, if positive see Motility team. If negative the treatment for small intestinal bacterial overgrowth (SIBO) and EGD. I spent 30 min of this 40 min visit counseling the patient in the issues outlined above. Luca Cain MD [facility] [place] documented in this encounter Plan of Treatment Upcoming Encounters Date Type Specialty Care Team Description 06/03/2022 Office Visit Rheumatology Benny Solano MD [facility] [address] [place], [place] [address] (Wo rk) documented as of this encounter Procedures Procedure Name Priority Date/Time Associated Comments Diagnosis CRP, ACUTE Routine 08/06/2018 5:23 PM Celiac Results f or this INFLAMMATION EST disease/sprue procedure are in Chronic the results constipation section. Sjogren's syndrome, with unspecified organ involvement HEMOGRAM Routine 08/06/2018 5:23 PM Celiac Results f or this EST disease/sprue procedure are in Chronic the results constipation section. Sjogren's syndrome, with unspecified organ involvement DIFFERENTIAL, Routine 08/06/2018 5:23 PM Celiac Results for this AUTOMATED EST disease/sprue procedure are in Chronic the results constipation section. Sjogren's syndrome, with unspecified organ involvement TISSUE Routine 08/06/2018 5:23 PM Celiac Results f or this TRANSGLUTAMINASE, IGA EST disease/sp rue procedure are in Chronic the results constipation section. Sjogren's syndrome, with unspecified organ involvement CBC (WITH DIFF) Routine 08/06/2018 5:23 PM Celiac EST disease/sprue Chronic constipation Sjogren's syndrome, with unspecified organ involvement COMPREHENSIVE Routine 08/06/2018 5:23 PM Celiac Results for this METABOLIC PANEL EST disease/sprue procedure are in (NON-FASTING) Chronic the results constipation section. Sjogren's syndrome, with unspecified organ involvement documented in this encounter Results [...] contact e number below. Luca Cain MD IM NM ORDERABLES Differential, Automated (08/06/2018 5:23 PM EST) P athologist Signature Neutrophils % 49.0 % [facility] Neutr Abs (ANC) 3.37 1.70 - [facility] 6.10 [facility] x10(3)/[facility]ORATORY Lymphocytes % 40.9 % [facility] Lymphocytes Abs 2.8 0.9 - 3.2 [facility] x10(3)/[facility] LABORATORY Monocytes % 7.1 % [facility] Monocyte Abs 0.5 0.3 - 0.9 [facility] x10(3)/[facility] LABORATORY Eosinophils % 2.2 % [facility] Eosinophils Abs 0.2 0.0 - 0.4 [facility] x10(3)/[facility] LABORATORY Basophils % 0.7 % [facility] Basophils Abs 0.0 0.0 - 0.1 [facility] x10(3)/[facility] LABORATORY Immature Gran % 0.10 % [facility] Comment: Immature granulocytes(IG's)percentage an d absolute count will include metamyelocytes, myelocytes, and promyelo cytes. Blood smears from CBCs yielding IG's will be scanned manually for concor dance. If this scan disagrees with the automated IG or if promyelocytes are not ed, a manual differential will be performed. Anisha Gran Abs 0.01 0.00 - 0.04 x10(3)/[facility] LABORATORY Specimen Anatomical Collection Method Collection Time Receive d Time (Source) Location / / Volume Laterality Blood specimen 08/06/2018 5:23 PM 018 5:30 (specimen) EST PM EST Resulting Agency Comment Spec In Lab Luca Cain MD HEMATOLOGY ORDERABLES Performing Organization Address City/State/[place] [address] (ABNORMAL) Hemogram (08/06/2018 5:23 PM EST) Analysis Performed At Patho logist Time Signature WBC 6.9 4.0 - 9.5 [facility] x10(3)/[facility] LABORATORY RBC 4.00 4.00 - [facility] 5.21 [facility] x10(6)/[facility]ATORY Hemoglobin 12.8 11.7 - JOSELO BRENTON 15.5 gm/dL [facility] Hematocrit 38.7 35.7 - [facility] 45.8 % [facility] MCV 96.8 (H) 82.6 - [facility] 94.4 [facility] MCH 32.0 27.1 - [facility] 32.0 pg [facility] MCHC 33.1 31.7 - [facility] 35.0 gm/dL [facility] Platelets 261 145 - 357 [facility] x10(3)/[facility] LABORATORY RDWSD 46.5 (H) 37.0 - [facility] 46.0 [facility] LABORATORY RDWCV 12.9 11.5 - [facility] 14.1 % [facility] MPV 10.6 7.6 - 12.9 [facility] LABORATORY nRBC % Auto 0.0 % [facility] nRBC Abs Auto 0.000 0.000 - [facility] 0.000 [facility] x10(3)/[facility] LABORATORY Specimen Anatomical Collection Method Collection Time Receive d Time (Source) Location / / Volume Laterality Blood specimen 08/06/2018 5:23 PM 018 5:30 (specimen) EST PM EST Resulting Agency Comment Spec In Lab Luca Cain MD HEMATOLOGY ORDERABLES Performing Organization Address City/State/[place] [address] CRP, acute inflammation (08/06/2018 5:23 PM EST) P athologist Signature CRP 0.9 <=4.9 mg/L [facility] Specimen Anatomical Collection Method Collection Time Receive d Time (Source) Location / / Volume Laterality Blood specimen 08/06/2018 5:23 PM 018 5:30 (specimen) EST PM EST Resulting Agency Comment Spec In Lab Luca Cain MD CHEMISTRY ORDERABLES Performing Organization Address City/State/[place] [address] (ABNORMAL) Comprehensive metabolic panel (non-fasting) (08/06/2018 5:23 PM EST) P athologist Signature Glucose Lvl 89 65 - 199 [facility] mg/dL [facility] Comment: Diabetes: >=200 mg/dL plus symp toms BUN 16 8 - 18 mg/dL [facility] Creatinine 0.94 0.70 - 1.20 mg/dL [facility] Sodium 140 135 - 145 mmol/L [facility] Potassium 4.3 3.5 - 5.0 mmol/L [facility] Comment: Please note: ??Patients with WBC >100,00 0 may have falsely elevated Potassium levels. ??For accurate Potassium quantif ication in these patients send serum separator tube (gold top) for subsequent determinations. ??Contact the Clinical Chemistry Laboratory if there are any qu estions. Chloride 102 98 - 107 mmol/L [facility] CO2 25 22 - 31 mmol/L [facility] Anion Gap 13 5 - 15 mmol/L [facility] Calcium 9.2 8.5 - 10.5 mg/dL [facility] Total Protein 7.6 6.1 - 8.0 gm/dL [facility] Albumin 4.3 3.2 - 5.2 gm/dL [facility] AST 16 0 - 30 unit/L [facility] ALT 11 0 - 30 unit/L [facility] Alk Phos 109 (H) 40 - 104 unit/L [facility] Total Bilirubin 0.2 0.2 - 1.3 mg/dL [facility] Estimated GFR 67 >=60 mL/min/1.73 m?? [facility] Comment: The eGFR was calculated using the CKD-EP I equation. As with all creatinine based estimates of kidney function, eGFR values calculated with the CKD-EPI equation are not accurate in patients wi th acute kidney failure, extremes of body mass or the acutely ill. [email or web address]kf eGFR 78 >=60 mL/min/1.73 m?? [facility] Comment: The eGFR was calculated using the CKD-EP I equation. As with all creatinine based estimates of kidney function, eGFR values calculated with the CKD-EPI equation are not accurate in patients wi th acute kidney failure, extremes of body mass or the acutely ill. [email or web address]/[facility] Specimen Anatomical Collection Method Collection Time Receive d Time (Source) Location / / Volume Laterality Blood specimen 08/06/2018 5:23 PM 018 5:30 (specimen) EST PM EST Resulting Agency Comment Spec In Lab Luca Cain MD CHEMISTRY ORDERABLES Performing Organization Address City/[facility]/[place] [address] Tissue transglutaminase, IgA (08/06/2018 5:23 PM EST) athologist Signature TTG IgA Ab <1.2 <4.0 [facility] (Negative) [facility] unit/[facility] LABORATORY Comment: Test Performed by: [address] [address] Specimen Anatomical Collection Method Collection Time Receive d Time (Source) Location / / Volume Laterality Blood specimen 08/06/2018 5:23 PM 018 9:04 (specimen) EST AM EST Resulting Agency Comment Spec In Lab Luca Cain MD IMMUNOLOGY ORDERABLES Performing Organization Address City/[facility]/ZIP [facility] [place] [address] documented in this encounter Visit Diagnoses Diagnosis Celiac disease/sprue Celiac disease Chronic constipation Unspecified constipation Sjogren's syndrome, with unspecified org an involvement Celiac disease/sprue Celiac disease Chronic constipation Unspecified constipation Sjogren's syndrome, with unspecified org an involvement documented in this encounter Care Teams Webbing Weaver Relationship Specialty Start Date End Date Anthony Samaniego MD PCP - General 07/16/[address] [place] [address] documented as of this encounter
--- OUTSIDE RECORDS SUMMARY | 2022-05-13 01:46 | XMS_ITS | Encounter Summary ---
:1960 Author Organization [facility] [place] [address] Care Team Providers Name Role Phone Anthony Samaniego MD Primary Care Provider [phone] Encounter Details Date Type Department Care Team Description 10/26/2018 Telephone Rheumatology [place] [facility] [place] [address] Social History Tobacco Use Types Packs/Day [...] this encounter Miscellaneous Notes Telephone Encounter - Bjorn Bhakta RN - 10/26/2018 8:40 AM EST Images from the original note were not included. Patty Hebert MD Gavalakis, Rory A, RN ?? Vitamin D 30. ??Please let patient know to take OTC vitamin D3 2000 units daily. ??Thanks Patient updated on above, expressed understanding. documented in this encounter Plan of Treatment Upcoming Encounters Date Type Specialty Care Team Description 06/03/2022 Office Visit Rheumatology Benny Solano [place] [facility] [place] [address] (Wo rk) documented as of this encounter Visit Diagnoses Not on filedocumented in this encounter Care Teams Supervisor [employer]able Farming Relationship Specialty Start Date End Date Anthony Samaniego MD PCP - General 07/16/14 [facility] [address] [place] [address] documented as of this encounter
--- OUTSIDE RECORDS SUMMARY | 2022-05-13 01:46 | XMS_ITS | Encounter Summary ---
:1960 Author Organization [place] [address] Care Team Providers Name Role Phone Anthony Samaniego MD Primary Care Provider [phone] Reason for Referral Physical Therapy (Routine) - Closed Specialty Diagnoses / Procedures Referred By Contact Refer red To Contact Diagnoses Fatigue, unspecified type Myalgia, other site Patty Hebert MD Physical Therapy, [facility] Rheumatology Dept [address] [address] Fax: Referral ID Status Reason Start Date Expiration Date Visits V isits Requested Authorized [id number] Closed Evaluate and 01/23/2019 07/22/2019 12 12 Treat Encounter Details Date Type Department Care Team Description 01/23/2019 Office Visit Rheumatology at [facility] Emilee, Fatigue, unspecified type; [facility] MD Patty Sjogren's syndrome, with unspecified org an involvement; [facility] Delayed gastric emptying; [place] [address] [place], other site; [phone] Rheumatology Osteoarthritis, unspecified osteoarthritis type, unspecified site; Dept [place], [place] [address] Social History Tobacco Use Types Packs/Day Years [...] Sign Reading Time Taken Comments Blood Pressure 150/80 01/23/2019 7:57 AM EDT Pulse 72 01/23/2019 7:57 AM EDT Temperature 36.5 ??C (97.7 ??F) 01/23/2019 7:57 AM EDT Respiratory Rate - - Oxygen Saturation 98% 01/23/2019 7:57 AM EDT Inhaled Oxygen Concentration - - Weight 107 kg (236 lb) 01/23/2019 7:57 AM EDT Height 157.5 cm (5' 2) 01/23/2019 7:57 AM EDT Body Mass Index 43.16 01/23/2019 7:57 AM EDT documented in this encounter Progress Notes Patty Hebert MD - 01/23/2019 8:00 AM EDT Rheumatology Follow-up Note HPI: Ms. 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 Takes motrin 800 mg tid daily S/P minor salivary gland biopsy in 05/2018, positive for Sjogren's. Interim, last seen in September 2018 Having gastric emptying study today. Known h/o SIBO and delayed gastric emptying. Started HCQ in September, took it for 3 days felt funny may be coincidental however as it might notbe effective, discontinued. Cevimeline helps with dry mouth. Tried erythromycin for delayed gastric emptying with no significant bowel change. Always has constipation. Fatigue continues to be worse Wondering about lubricant cream to eyes at night. Explained that it is OTC. Yet to see Ophthalmology. No evidence of dry cough, shortness of breath. Tingling and numbness in hands and feet. Notices cold feet at times. Takes ibuprofen 800 mg bid to help with pain in LE's (mostly in knees, ankles) from profession I believe joint pain in knees, ankles, [...] smoker. 1 drink per week. Works as division chair for about 40 years. Family Hx: [...] No active synovitis. 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 B/L MCP compression tenderness. B/L knee crepitus R>L FROM in all joints. No lymphadenopathy /18 FM tender points. 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 Osteoarthritis of the knees Fibromyalgia Delayed gastric emptying Peripheral neuropathy Vitamin D deficiency Sjogren's syndrome(SS) Serologies negative. 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 Dry eyes, dry mouth Continue conservative measures including preservative-free artificial tears, [...] delayed as a result of autonomic dysfunction. Fatigue, arthralgias, sicca, GI manifestations, ? Peripheral neuropathy Arthralgias more often with SS than arthritis. Continue to monitor. Tried hydroxychloroquine 200 mg twice daily for 3 days in September, discontinued due to funny feeling. She might consider trying eventually. Explained that she has to try at least 3 months to see its full effect. Currently taking ibuprofen 800 mg twice daily with relief. In H thanks fatigue, also check TSH, vitamin B12 along with CBC, CMP, ESR, CRP. Normal SPEP in October 2017. Vitamin D 30 in September 2018. Pending repeat vitamin D level start cholecalciferol 50,000 units onceweekly for 8 weeks then once monthly. GI manifestations in SS include dysphagia, nausea, [...] compared with the general population upto 5% Fibromyalgia Discussed in detail about fibromyalgia. Endorses [...] that she might consider CBD oil. She will start taking cevimeline times daily instead of twice daily States she will start hydroxychloroquine twice daily for at least 3 months. Recommend getting baseline eye exam for evaluation of dry eyes and prior to/soon after starting hydroxychloroquine. Started vitamin D 50,000 units once monthly. Referral made to PT (pool therapy) Encourage Quadriceps strengthening exercises. RTC in 4 months Addendum: vitamin D 35 ESR 23, CRP 3.0 Normal vitamin B12 600, TSH 2.09 documented in this encounter Plan of Treatment Upcoming Encounters Date Type Specialty Care Team Description 06/03/2022 Office Visit Rheumatology Benny Solano MD [facility] [address] [place], [place] [address] (Wo rk) Scheduled Referrals Name Type Priority Associated Diagnoses Order S chedule Referral to Outpatient Referral Routine Fatigue, unspecified Ordered: Physical Therapy type 01/23/2019 Myalgia, other site documented as of this encounter Procedures Procedure Name Priority Date/Time Associated Comments Diagnosis CRP, ACUTE Routine 01/23/2019 10:43 Fatigue, Results for this INFLAMMATION AM EDT unspecified type procedure are in Sjogren's syndrome, the resu lts with unspecified section. organ involvement CENTROMERE ANTIBODY Routine 01/23/2019 10:43 Fatigue, Resu lts for this AM EDT unspecified type procedure are in Sjogren's syndrome, the resu lts with unspecified section. organ involvemen t Delayed gastric emptying HEMOGRAM Routine 01/23/2019 10:43 Fatigue, Results for this AM EDT unspecified type procedure are in Sjogren's syndrome, the resu lts with unspecified section. organ involvement DIFFERENTIAL, Routine 01/23/2019 10:43 Fatigue, Results fo r this AUTOMATED AM EDT unspecified type procedure are in Sjogren's syndrome, the resu lts with unspecified section. organ involvement VITAMIN D, 25-HYDROXY Routine 01/23/2019 10:43 Fatigue, Re sults for this AM EDT unspecified type procedure are in Sjogren's syndrome, the resu lts with unspecified section. organ involvement SEDIMENTATION RATE Routine 01/23/2019 10:43 Fatigue, Resul ts for this AM EDT unspecified type procedure are in Sjogren's syndrome, the resu lts with unspecified section. organ involvement CBC (WITH DIFF) Routine 01/23/2019 10:43 Fatigue, AM EDT unspecified type Sjogren's syndrome, with unspecified organ involvement TSH Routine 01/23/2019 10:43 Fatigue, Results for this AM EDT unspecified type procedure are in Sjogren's syndrome, the resu lts with unspecified section. organ involvement VITAMIN B12 Routine 01/23/2019 10:43 Fatigue, Results for this AM EDT unspecified type procedure are in Sjogren's syndrome, the resu lts with unspecified section. organ involvement COMPREHENSIVE Routine 01/23/2019 10:43 Fatigue, Results fo r this METABOLIC PANEL AM EDT unspecified type procedure are in (NON-FASTING) Sjogren's syndrome, the res ults with unspecified section. organ involvement documented in this encounter Results Differential, Automated (01/23/2019 10:43 AM EDT) athologist Signature Neutrophils % 56.5 % [facility] Neutr Abs (ANC) 3.25 1.70 - [facility] 6.10 [facility] x10(3)/[facility] LABORATORY Lymphocytes % 33.5 % [facility] Lymphocytes Abs 1.9 0.9 - 3.2 [facility] x10(3)/[facility] LABORATORY Monocytes % 6.9 % [facility] Monocyte Abs 0.4 0.3 - 0.9 [facility] x10(3)/[facility] LABORATORY Eosinophils % 2.1 % [facility] Eosinophils Abs 0.1 0.0 - 0.4 [place] [id number](3)/[facility] LABORATORY Basophils % 0.7 % [facility] Basophils Abs 0.0 0.0 - 0.1 [facility] x10(3)/[facility] LABORATORY Immature Gran % 0.30 % [facility] Comment: Immature granulocytes(IG's)percentage an d absolute count will include metamyelocytes, myelocytes, and promyelo cytes. Blood smears from CBCs yielding IG's will be scanned manually for concor dance. If this scan disagrees with the automated IG or if promyelocytes are not ed, a manual differential will be performed. Anisha Gran Abs 0.02 0.00 - 0.04 x10(3)/[facility]ORY Specimen Anatomical Collection Method Collection Time Receive d Time (Source) Location / / Volume Laterality Blood specimen 01/23/2019 10:43 9 (specimen) AM EDT 10:53 AM EDT Resulting Agency Comment Spec In Lab Patty Hebert MD HEMATOLOGY ORDERABLES Performing Organization Address City/State/[place] [address] (ABNORMAL) Hemogram (01/23/2019 10:43 AM EDT) Analysis Performed At Patho logist Time Signature WBC 5.8 4.0 - 9.5 [facility] x10(3)/[facility] LABORATORY RBC 3.87 (L) 4.00 - [facility] [place] 5.21 [facility] x10(6)/[facility] LABORATORY Hemoglobin 12.4 11.7 - [facility] 15.[facility] gm/dL [facility] Hematocrit 38.5 35.7 - [place] 45.8 % [facility] MCV 99.5 (H) 82.6 - [place] 94.4 fL [facility] MCH 32.0 27.1 - [place] 32.0 pg [facility] MCHC 32.2 31.7 - [facility] 35.0 gm/dL [facility] Platelets 283 145 - 357 [facility] x10(3)/[facility] LABORATORY RDWSD 47.8 (H) 37.0 - [place] 46.0 [facility] LABORATORY RDWCV 13.1 11.5 - [facility] 14.1 % [facility] MPV 10.7 7.6 - 12.9 [facility] nRBC % Auto 0.0 % [facility] nRBC Abs Auto 0.000 0.000 - [place] 0.000 [facility] x10(3)/[facility] LABORATORY Specimen Anatomical Collection Method Collection Time Receive d Time (Source) Location / / Volume Laterality Blood specimen 01/23/2019 10:43 9 (specimen) AM EDT 10:53 AM EDT Resulting Agency Comment Spec In Lab Patty Hebert MD HEMATOLOGY ORDERABLES Performing Organization Address City/[facility]/ZIP Code Phon e Number [address] Centromere Antibody (01/23/2019 10:43 AM EDT) athologist Signature Centromere Ab <0.2 <1.0 [facility] [place] (Negative) [facility] Comment: Test Performed by: [facility] [address] [place], [place] [address] Specimen Anatomical Collection Method Collection Time Receive d Time (Source) Location / / Volume Laterality Blood specimen 01/23/2019 10:43 9 1:58 (specimen) AM EDT PM EDT Resulting Agency Comment Spec In Lab Patty Hebert MD IMMUNOLOGY ORDERABLES Performing Organization Address City/[facility]/ZIP Code Phon e Number [address] Vitamin B12 (01/23/2019 10:43 AM EDT) P athologist Signature Vitamin B-12 600 232 - 1,245 [facility] pg[facility]mL [facility] Specimen Anatomical Collection Method Collection Time Receive d Time (Source) Location / / Volume Laterality Blood specimen 01/23/2019 10:43 9 (specimen) AM EDT 10:53 AM EDT Resulting Agency Comment Spec In Lab Patty Hebert MD CHEMISTRY ORDERABLES Performing Organization Address City/[facility]/[place] [address] Vitamin D, 25-Hydroxy (01/23/2019 10:43 AM EDT) athologist Signature 25-OH Vit D 35 30 - 100 [place] [place] Total ng/mL [facility] Comment: Deficient <10 ng/mL Insufficient 10 to 29 ng/mL Sufficient 30 to 100 ng/mL Potential Intoxication >100 ng/mL According to the [place] National Osteoporosi s Foundation, Vitamin D concentrations >30 ng/mL are sufficient to protect bone health. ??The National Kidney Foundation has similarly stated that pat ients with Vitamin D concentrations <30ng/mL should be considered to be insu fficient or deficient. http://Personera.Biophytis/nkf-guidelines http://Personera.Biophytis/nejm-VitD The [employer] Vitamin D Immunoassay detec ts both 25-OH Vitamin D2 and 25-OH Vitamin D3, but only a total Vitamin D c oncentration is reported. Specimen Anatomical Collection Method Collection Time Receive d Time (Source) Location / / Volume Laterality Blood specimen 01/23/2019 10:43 9 1:36 (specimen) AM EDT PM EDT Resulting Agency Comment Spec In Lab Patty Hebert MD CHEMISTRY ORDERABLES Performing Organization Address City/State/ZIP Code Phon e Number [address] TSH (01/23/2019 10:43 AM EDT) athologist Signature TSH 2.09 0.27 - 4.20 [place] mcIU/mL [facility] Specimen Anatomical Collection Method Collection Time Receive d Time (Source) Location / / Volume Laterality Blood specimen 01/23/2019 10:43 9 (specimen) AM EDT 10:53 AM EDT Resulting Agency Comment Spec In Lab Patty Hebert MD CHEMISTRY ORDERABLES Performing Organization Address City/State/[place] [address] CRP, acute inflammation (01/23/2019 10:43 AM EDT) athologist Signature CRP 3.0 <=4.9 mg/L [facility] Specimen Anatomical Collection Method Collection Time Receive d Time (Source) Location / / Volume Laterality Blood specimen 01/23/2019 10:43 9 (specimen) AM EDT 10:53 AM EDT Resulting Agency Comment Spec In Lab Patty Hebert MD CHEMISTRY ORDERABLES Performing Organization Address City/[facility]/[place] [address] (ABNORMAL) Sedimentation rate (01/23/2019 10:43 AM EDT) P athologist Signature Sed Rate 23 (H) 0 - 20 [facility] mm/hr [facility] Specimen Anatomical Collection Method Collection Time Receive d Time (Source) Location / / Volume Laterality Blood specimen 01/23/2019 10:43 9 (specimen) AM EDT 10:53 AM EDT Resulting Agency Comment Spec In Lab Patty Hebert MD HEMATOLOGY ORDERABLES Performing Organization Address City/[facility]/[place] [address] Comprehensive metabolic panel (non-fasting) (01/23/2019 10:43 AM EDT) athologist Signature Glucose Lvl 84 65 - 199 [facility] mg/dL [facility] Comment: Diabetes: >=200 mg/dL plus symp toms BUN 17 8 - 18 mg/dL [facility] Creatinine 0.86 0.70 - 1.20 mg/dL [facility] Sodium 142 135 - 145 mmol/L [facility] Potassium 4.2 3.5 - 5.0 mmol/L [facility] Comment: Please note: ??Patients with WBC >100,00 0 may have falsely elevated Potassium levels. ??For accurate Potassium quantif ication in these patients send serum separator tube (gold top) for subsequent determinations. ??Contact the Clinical Chemistry Laboratory if there are any qu estions. Chloride 105 98 - 107 mmol/L [facility] CO2 28 22 - 31 mmol/L [facility] Anion Gap 9 5 - 15 mmol/L [facility] Calcium 9.5 8.5 - 10.5 mg/dL [facility] Total Protein 7.5 6.1 - 8.0 gm/dL [facility] Albumin 4.3 3.2 - 5.2 gm/dL [facility] AST 17 0 - 30 unit/L [facility] ALT 17 0 - 30 unit/L [facility] Alk Phos 104 40 - 104 unit/L [facility] Total Bilirubin 0.3 0.2 - 1.3 mg/dL [facility] Estimated GFR 74 >=60 mL/min/1.73 m?? [facility] Comment: The eGFR was calculated using the CKD-EP I equation. As with all creatinine based estimates of kidney function, eGFR values calculated with the CKD-EPI equation are not accurate in patients wi th acute kidney failure, extremes of body mass or the acutely ill. http://MutualMind/[facility]nkf eGFR 86 >=60 mL/min/1.73 m?? [facility] Comment: The eGFR was calculated using the CKD-EP I equation. As with all creatinine based estimates of kidney function, eGFR values calculated with the CKD-EPI equation are not accurate in patients wi th acute kidney failure, extremes of body mass or the acutely ill. http://MutualMind/[facility]ISnkf Specimen Anatomical Collection Method Collection Time Receive d Time (Source) Location / / Volume Laterality Blood specimen 01/23/2019 10:43 9 (specimen) AM EDT 10:53 AM EDT Resulting Agency Comment Spec In Lab Patty Hebert MD CHEMISTRY ORDERABLES Performing Organization Address City/State/[place] [address] documented in this encounter Visit Diagnoses Diagnosis Fatigue, unspecified type Sjogren's syndrome, with unspecified org an involvement Delayed gastric emptying Dyspepsia and other specified disorders of function of stomach Myalgia, other site Osteoarthritis, unspecified osteoarthrit is type, unspecified site Sicca, unspecified type documented in this encounter Care Teams Plate Take Out Worker Relationship Specialty Start Date End Date Anthony Samaniego MD PCP - General 07/16/14 [address] [facility] [address] [place] [address] documented as of this encounter
--- OUTSIDE RECORDS SUMMARY | 2022-05-13 01:46 | XMS_ITS | Encounter Summary ---
:1960 Author Organization [facility] [place] [address] Care Team Providers Name Role Phone Anthony Samaniego MD Primary Care Provider [phone] Reason for Visit Auth/Cert Specialty Diagnoses / Procedures Referred By Contact Refer red To Contact Diagnoses diverticulitis Procedures PRO COLONOSCOPY, DIAGNOSTIC COLONOSCOPY, DIAGNOSTIC Referral ID Status Reason Start Date Expiration Date Visits Requ ested Visits Authorized [id number] 1 1 Encounter Details Date Type Department Care Team Description 10/26/2016 Hospital Encounter [facility]ology at [facility] [place], [facility] [place] [address] [facility] [phone] [facility] [place], [place] [address] Social History Tobacco Use Types [...] to be checked. Monday-Monday Same Day Endo [phone] Otherwise contact [phone] and ask to speak to the director of restaurant construction inspector Follow up care is a castellano part of your treatment and safety. Be sure to make and go to all appointments, and call your doctor if you are having problems. Discharge instructions reviewed with patient who expresses understanding AttachmentsThe following attachments cannot be sent through Care Everywhere. COLONOSCOPY: POST-OP ([place])documented in this encounter Medications at Time of [...] Benny Solano MD [facility] [address], [place] [address] (Wo rk) documented as of this encounter Procedures Procedure Name Priority Date/Time Associated Comments Diagnosis COLONOSCOPY, 10/26/2016 11:46 diverticulitis/william DIAGNOSTIC AM EST ac disease COLONOSCOPY Routine 10/26/2016 11:38 Results for this AM EST procedure are i n the results section. documented in this encounter Results COLONOSCOPY (10/26/2016 11:38 AM EST) [facility] Method Time Signature COLONOSCOPY [facility] Procedure Date: 10/26/2016 11:38 AM ? Patient Name: Ai Morrison ? N: [id number] ? Date of : 1960 ? Age: 56 ? Order #: [id number] ? Instrument Name: [id number] ? Procedure: ? Colonoscopy Indications: ? S/p [...] was evaluat ed using ? the BBPS ([place] Bowel Prepar ation ? Scale) with scores [...] MAR Action Action Date Dose Rate Site lactated ringers infusion New Bag 10/26/2016 11:15 AM EST 50 mL/hr 50 mL/hr 50 mL/hr, Intravenous, CONTINUOUS, Starting on Mon10/26/16 at 1115, Until Mon10/26/16 at 1250, Endoscopy (Day of Procedure) documented in this encounter Active and Recently [...] Leeanna Villanueva RN)1156 (Given - Provider: Leeanna Villanueva, DANIEL)1159 (Given - Provider: Leeanna Villanueva RN) ONCE PRN, Starting Mon10/26/16 at 1150, U ntil Mon10/26/16 at 1457, Intra-Operative (Intra-Procedure), Routine midazolam (PF) (VERSED) 1 mg/mL multi-dose injection (CANCELED) 1150 (Given - Provider: Leeanna Villanueva RN)1153 (Given - Provider: Leeanna Villanueva RN)1156 (Given - Provider: Leeanna Villanueva RN)1159 (Given - Provider: Leeanna Villanueva RN) ONCE PRN, Starting Mon10/26/16 at 1150, U ntil Mon10/26/16 at 1457, Intra-Operative (Intra-Procedure), Routine documented in this encounter Care Teams Program Evaluator Relationship Specialty Start Date End Date Anthony Samaniego MD PCP - General 07/16/[address] [place] [address] [address] [place] [address] documented as of this encounter
--- OUTSIDE RECORDS SUMMARY | 2022-05-13 01:46 | XMS_ITS | Encounter Summary ---
:1960 Author Organization [employer] [place] [address] Care Team Providers Name Role Phone Anthony Samaniego MD Primary Care Provider [phone] Reason for Visit Consultation (Routine) - Closed Specialty Diagnoses / Procedures Referred By Contact Refer red To Contact Rheumatology Diagnoses dry eye syndrome Anthony Samaniego, [facility] 5c MD [address] [id number] 1 [place], [place] [address] Referral ID Status Reason Start Date Expiration Date Visits V isits Requested Authorized [id number] Closed Consult, 11/09/2017 11/09/2018 1 1 [facility] Encounter Details Date Type Department Care Team Description 11/15/2017 Office Visit Rheumatology at [facility] Patty Hebert, Dry eyes; [facility] Dry mouth; [facility] Polyarthralgia; [place] [address] Abnormal blood chemistry level; [phone] Rheumatology Dep t Fatigue, unspecified type [place], [place] [address] Social History Tobacco Use Types [...] Sign Reading Time Taken Comments Blood Pressure 136/82 11/15/2017 1:57 PM EST Pulse 60 11/15/2017 1:57 PM EST Temperature 36.9 ??C (98.5 ??F) 11/15/2017 1:57 PM EST Respiratory Rate - - Oxygen Saturation 96% 11/15/2017 1:57 PM EST Inhaled Oxygen Concentration - - Weight 105.2 kg (232 lb) 11/15/2017 1:57 PM EST Height 157.5 cm (5' 2) 11/15/2017 1:57 PM EST Body Mass Index 42.43 11/15/2017 1:57 PM EST documented in this encounter Progress Notes Patty Hebert MD - 11/15/2017 2:00 PM EST Outpatient Rheumatology Consult CC: Asked by Anthony Samaniego to evaluate this patient with dry eye syndrome. Per patient fatigue, joint pain brought her here. During dental appointment, she was noticed to have dry mouth and a question of Sjogren's syndrome was was brought up. HPI: Ms. 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 Reportedly, here for evaluation of fatigue, arthralgias. Endorses reading about Sjogren's disease. Dry eyes and dry mouth and wonders if she has Sjogren's disease, onset of symptoms years ago (about 2010) gradually worsening since July. Started prescription tooth paste, frequent sips of water, candy. She wants to start sugar free candy, currently eating regular candy. Had two small decays. Does not [...] pain. Takes motrin 800 mg tid daily PMH: Celiac disease biopsy-proven, Right upper quadrant abdominal pain Anemia Fatigue Chronic arthralgias of knees and hips Anxiety Mood disorders Diverticulosis of the colon Small intestin bacterialal overgrowth Restless leg syndrome Family history of cerebral aneurysm Status post cholecystectomy Status post Colonic polyp, colonoscopy 2005, repeat 2010 Work up for interstitial cystitis negative in past. Social Hx: per patient history form. Never smoker. 1 drink per week. Works as chairman & ceo for about40 years. Family Hx: per patient history form. PGM had RA. Mother had brain aneurysms, from COPD. Also had colon cancer. Sister has vasculitis. ROS: per patient history form Gen: no night sweats or fevers. Fatigue is new since for about a month Skin: no rashes, no hair loss Mouth: [...] No active synovitis. 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 B/L knee crepitus R>L FROM in all joints. NO lymphadenopathy 09/11 FM tender points. Labs: 10/25/2017 CBC WNL, Elevated MCV, around 96 ESR 31 CMP WNL alkaline phosphatase 120(H) AME screen, RF negative in December 2015 SSA antibody negative in September 2017 anti-mitochondrial antibody negative in 2010. Lyme antibody, urine dipstick negative Impression/recommendations: Ms. 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 Fatigue for one month. Most bothering is fatigue and arthralgias. She does have some features of connective tissue disease such as Sjogren's especially dry eyes dry mouth, fatigue, arthralgias, mouth sores, pending further workup. Osteoarthritis of the knees Check AME, ESTRELLA, SPEP, C3, C4, dsDNA, UA, CBC,CMP,folate, Vitamin B12, TSH Scheduled for lip biopsy in [place], [place]. await results Due to long duration of action, recommend naproxen 500 mg bid. Hold off on ibuprofen while taking naproxen. Discussed about SE's Recommend artificial tears and continue with conservative measures for dry mouth as above. RTC in 4 weeks. Leaving to [facility] in December for vacation. Addendum: Urine analysis with moderate leukocytes, WBC 6(0-5) CBC with differential, CMP Alkaline phosphatase 107 (40-104) Folic acid vitamin B12 AME ESTRELLA) PLATE PAINTER 0.9 dsDNA CCP Rx C3-C4 SPEP TSH negative/within normal limits Vitamin D 32 (30-100) X-ray of the knees bilateral knee joint osteoarthropathy with medial joint space narrowing and marginal osteophyte formation. Consider vitamin D supplementation Quadriceps strengthening exercises PLATE PAINTER 0.9(<1.0)?? Possible evoluation into MCTD. documented in this encounter Plan of Treatment Upcoming Encounters Date Type Specialty Care Team Description 06/03/2022 Office Visit Rheumatology Benny Solano MD [facility] [address], [place] [address] (Wo rk) documented as of this encounter Procedures Procedure Name Priority Date/Time Associated Comments Diagnosis EXTRACTABLE NUCLEAR Routine 11/15/2017 3:24 PM Dry eyes Results for this ANTIGEN (ESTRELLA) AB EST Dry mouth procedure are in Polyarthralgia the results Fatigue, section. unspecified type ANTI-CYCLIC Routine 11/15/2017 3:24 PM Dry eyes Results for this CITRULLINATED PEPTIDE EST Dry mouth procedure are in AB Polyarthralgia the results Fatigue, section. unspecified type DNA ANTIBODY Routine 11/15/2017 3:24 PM Dry eyes Results for this (DOUBLE-STRANDED) EST Dry mouth procedure are in Polyarthralgia the results Fatigue, section. unspecified type HEMOGRAM Routine 11/15/2017 3:24 PM Abnormal blood Results for this EST chemistry level procedure ar e in the results section. DIFFERENTIAL, Routine 11/15/2017 3:24 PM Abnormal blood Result s for this AUTOMATED EST chemistry level procedure ar e in the results section. VITAMIN D, 25-HYDROXY Routine 11/15/2017 3:24 PM Abnormal bloo d Results for this EST chemistry level procedure ar e in the results section. CBC (WITH DIFF) Routine 11/15/2017 3:24 PM Abnormal blood EST chemistry level RHEUMATOID FACTOR, Routine 11/15/2017 3:24 PM Dry eyes Results for this QUANT EST Dry mouth procedure are in Polyarthralgia the results Fatigue, section. unspecified type C3 COMPLEMENT Routine 11/15/2017 3:24 PM Dry eyes Results for this EST Dry mouth procedure are in Polyarthralgia the results Fatigue, section. unspecified type C4 COMPLEMENT Routine 11/15/2017 3:24 PM Dry eyes Results for this EST Dry mouth procedure are in Polyarthralgia the results Fatigue, section. unspecified type AME Routine 11/15/2017 3:24 PM Dry eyes Results for this EST Dry mouth procedure are in Polyarthralgia the results Fatigue, section. unspecified type TSH Routine 11/15/2017 3:24 PM Fatigue, Results f or this EST unspecified type procedure a re in the results section. PROTEIN Routine 11/15/2017 3:24 PM Dry eyes Results for this ELECTROPHORESIS, SERUM EST Dry mouth procedure are in Polyarthralgia the results Fatigue, section. unspecified type FOLATE, SERUM Routine 11/15/2017 3:24 PM Abnormal blood Result s for this EST chemistry level procedure ar e in the results section. VITAMIN B12 Routine 11/15/2017 3:24 PM Abnormal blood Results for this EST chemistry level procedure ar e in the results section. COMPREHENSIVE Routine 11/15/2017 3:24 PM Abnormal blood Result s for this METABOLIC PANEL EST chemistry level procedure are in (NON-FASTING) the results section. URINALYSIS MICROSCOPIC Routine 11/15/2017 3:23 PM Results for this EXAM EST procedure are i n the results section. URINALYSIS WITH REFLEX Routine 11/15/2017 3:23 PM Dry ey es Results for this CULTURE EST Dry mouth procedure are in Polyarthralgia the results Fatigue, section. unspecified type URINE CULTURE Routine 11/15/2017 3:23 PM Results for this EST procedure are i n the results [...] PM Patty Hebert MD IMG DX ORDERABLES Differential, Automated (11/15/2017 3:24 PM EST) P athologist Signature Neutrophils % 50.1 % [facility] Neutr Abs (ANC) 3.06 1.70 - [facility] 6.10 [facility] x10(3)/[facility] LABORATORY Lymphocytes % 40.2 % [facility] Lymphocytes Abs 2.5 0.9 - 3.2 [facility] x10(3)/[facility] LABORATORY Monocytes % 6.5 % [facility] Monocyte Abs 0.4 0.3 - 0.9 [facility] x10(3)/[facility] LABORATORY Eosinophils % 2.1 % [facility] Eosinophils Abs 0.1 0.0 - 0.4 [facility] x10(3)/[facility] LABORATORY Basophils % 0.8 % [facility] Basophils Abs 0.0 0.0 - 0.1 [facility] x10(3)/[facility] LABORATORY Immature Gran % 0.30 % [facility] Comment: Immature granulocytes(IG's)percentage an d absolute count will include metamyelocytes, myelocytes, and promyelo cytes. Blood smears from CBCs yielding IG's will be scanned manually for concor dance. If this scan disagrees with the automated IG or if promyelocytes are not ed, a manual differential will be performed. Anisha Gran Abs 0.02 0.00 - 0.04 x10(3)/[facility] LABORATORY Specimen Anatomical Collection Method Collection Time Receive d Time (Source) Location / / Volume Laterality Blood specimen 11/15/2017 3:24 PM 018 3:29 (specimen) EST PM EST Resulting Agency Comment Spec In Lab Patty Hebert MD HEMATOLOGY ORDERABLES Performing Organization Address City/State/Z[place] [address] (ABNORMAL) Hemogram (11/15/2017 3:24 PM EST) Analysis Performed At Patho logist Time Signature WBC 6.1 4.0 - 9.5 [place] [place] x10(3)/[facility] LABORATORY RBC 3.97 (L) 4.00 - [place] 5.21 [facility] x10(6)/[facility] LABORATORY Hemoglobin 12.7 11.7 - [place] 15.5 gm/dL [facility] Hematocrit 37.5 35.7 - [facility] 45.8 % [facility] MCV 94.5 (H) 82.6 - [facility]4 [facility] LABORAT[facility] MCH 32.0 27.1 - [facility] 32.0 pg [facility] MCHC 33.9 31.7 - [place] 35.0 gm/dL [facility] Platelets 270 145 - 357 [facility] LABORATORY RDWSD 46.8 (H) 37.0 - [facility] 46.0 [facility] LABORATORY RDWCV 13.4 11.5 - [facility] 14.1 % [facility] MPV 10.5 7.6 - 12.9 [facility] LABORATORY nRBC % Auto 0.0 % [facility] nRBC Abs Auto 0.000 0.000 - [facility] [place] 0.000 [facility] x10(3)/[facility] LABORATORY Specimen Anatomical Collection Method Collection Time Receive d Time (Source) Location / / Volume Laterality Blood specimen 11/15/2017 3:24 PM 018 3:29 (specimen) EST PM EST Resulting Agency Comment Spec In Lab Patty Hebert MD HEMATOLOGY ORDERABLES Performing Organization Address City/State/Z[place] [address] TSH (11/15/2017 3:24 PM EST) P athologist Signature TSH 3.33 0.27 - 4.20 [facility] [place] mlU/ML [facility] Specimen Anatomical Collection Method Collection Time Receive d Time (Source) Location / / Volume Laterality Blood specimen 11/15/2017 3:24 PM 018 3:29 (specimen) EST PM EST Resulting Agency Comment Spec In Lab Patty Hebert MD CHEMISTRY ORDERABLES Performing Organization Address City/State/ZIP Code Phon e Number [address] Protein Electrophoresis, serum (11/15/2017 3:24 PM EST) Patholo gist Method Time Signature Total Prot 7.2 6.1 - 8.0 [facility] Elec gm/dL [facility] Albumin Elect 4.61 3.60 - [facility] [place] 6.00 [facility] LABORATORY Alpha1-Globul 0.16 0.10 - [place] in 0.30 [facility] LABORATORY Alpha2-Globul 0.76 0.40 - [place] in 0.90 [facility] LABORATORY Beta Globulin 0.67 0.50 - [facility] 1.00 [facility] LAB[facility]ATORY Gamma 1.00 0.50 - [facility] Globulin 1.30 [facility] LABORATORY M1 Band None [facility] Detected [facility] Specimen Anatomical Collection Method Collection Time Receive d Time (Source) Location / / Volume Laterality Blood specimen 11/15/2017 3:24 PM 018 3:29 (specimen) EST PM EST Resulting Agency Comment Spec In Lab Patty Hebert MD CHEMISTRY ORDERABLES Performing Organization Address City/State/[place] [address] C4 Complement (11/15/2017 3:24 PM EST) P athologist Signature C4 Complement 23 10 - 40 [facility] mg/dL [facility] Specimen Anatomical Collection Method Collection Time Receive d Time (Source) Location / / Volume Laterality Blood specimen 11/15/2017 3:24 PM 018 3:29 (specimen) EST PM EST Resulting Agency Comment Spec In Lab Patty Hebert MD CHEMISTRY ORDERABLES Performing Organization Address City/State/ZIP Code Phon e Number [address] C3 Complement (11/15/2017 3:24 PM EST) athologist [facility] C3 Complement 125 90 - 180 [facility] mg/dL [facility]ORY Specimen Anatomical Collection Method Collection Time Receive d Time (Source) Location / / Volume Laterality Blood specimen 11/15/2017 3:24 PM 018 3:29 (specimen) EST PM EST Resulting Agency Comment Spec In Lab Patty Hebert MD CHEMISTRY ORDERABLES Performing Organization Address City/State/ZIP Code Phon e Number [address] Rheumatoid factor, quant (11/15/2017 3:24 PM EST) athologist [facility] RF <10 <=14 IU/mL [facility] Specimen Anatomical Collection Method Collection Time Receive d Time (Source) Location / / Volume Laterality Blood specimen 11/15/2017 3:24 PM 018 3:29 (specimen) EST PM EST Resulting Agency Comment Spec In Lab Patty Hebert MD IMMUNOLOGY ORDERABLES Performing Organization Address City/State/ZIP Code Phon e Number [address] Cyclic Citrullinated Peptide (11/15/2017 3:24 PM EST) athologist [facility] Anti-Cyc Cit <0.5 <=4.9 [facility] Peptide unit/mL [facility] Comment: An updated CCP assay reagent was impleme nted 01/05/17. Please note the modified reference interval. Specimen Anatomical Collection Method Collection Time Receive d Time (Source) Location / / Volume Laterality Blood specimen 11/15/2017 3:24 PM 018 3:29 (specimen) EST PM EST Resulting Agency Comment Spec In Lab Patty Hebert MD CHEMISTRY ORDERABLES Performing Organization Address City/State/ZIP Code Phon e Number [address] DNA Antibody (Double-Stranded) (11/15/2017 3:24 PM EST) athologist [facility] DNA Ab (DS) Neg Neg [facility] Specimen Anatomical Collection Method Collection Time Receive d Time (Source) Location / / Volume Laterality Blood specimen 11/15/2017 3:24 PM 018 7:54 (specimen) EST AM EST Resulting Agency Comment Spec In Lab Patty Hebert MD CHEMISTRY ORDERABLES Performing Organization Address City/State/Z[place] [address] Extractable Nuclear Antigen (ESTRELLA) Ab (11/15/2017 3:24 PM EST) [facility] gist Method Time Signature ESTRELLA Ab [facility] Test ?Result ?Flag ??Unit ??RefValue [facility] Ab to Extractable Nuclear Ag Irma,Fabiana LABORATORY ??SS-A/Ro Ab, IgG, S ?<0.2 ?U ? <1.0 (Negative) ??SS-B/La Ab, IgG, S ?<0.2 ?U ? <1.0 (Negative) ??Sm Ab, IgG, S ? <0.2 ?U ? <1.0 (Negative) ??PLATE PAINTER Ab, IgG, S ?0.9 ? U ? <1.0 (Negative) ??Scl 70 Ab, IgG, S ? <0.2 ?U ? <1.0 (Negative) ??Gale 1 Ab, IgG, S ? <0.2 ?U ? <1.0 (Negative) ?Test Performed by: ?[facility] ?[address] [place] [address] Specimen Anatomical Collection Method Collection Time Receive d Time (Source) Location / / Volume Laterality Blood specimen 11/15/2017 3:24 PM 018 8:47 (specimen) EST AM EST Resulting Agency Comment Spec In Lab Patty Hebert MD IMMUNOLOGY ORDERABLES Performing Organization Address [facility] [place] [address] AME (11/15/2017 3:24 PM EST) athologist Signature AME Neg Neg [facility] Specimen Anatomical Collection Method Collection Time Receive d Time (Source) Location / / Volume Laterality Blood specimen 11/15/2017 3:24 PM 018 8:07 (specimen) EST AM EST Resulting Agency Comment Spec In Lab Patty Hebert MD IMMUNOLOGY ORDERABLES Performing Organization Address [facility] [place] [address] Vitamin B12 (11/15/2017 3:24 PM EST) athologist Signature Vitamin B-12 513 232 - 1,245 [facility] pg/mL [facility] Comment: Please note: Effective 08/23/2017, the r eference interval and the lower limit of detection for Vitamin B12 have been u pdated due to a new reagent formulation. Specimen Anatomical Collection Method Collection Time Receive d Time (Source) Location / / Volume Laterality Blood specimen 11/15/2017 3:24 PM 018 3:29 (specimen) EST PM EST Resulting Agency Comment Spec In Lab Patty Hebert MD CHEMISTRY ORDERABLES Performing Organization Address City/[facility]/ZIP Code Phon e Number [address] Folate, serum (11/15/2017 3:24 PM EST) athologist Signature Folate Lvl 16.0 4.8 - 24.2 [facility] ng/mL [facility] Specimen Anatomical Collection Method Collection Time Receive d Time (Source) Location / / Volume Laterality Blood specimen 11/15/2017 3:24 PM 018 3:29 (specimen) EST PM EST Resulting Agency Comment Spec In Lab Patty Hebert MD CHEMISTRY ORDERABLES Performing Organization Address City/[facility]/ZIP Code Phon e Number [address] Vitamin D, 25-Hydroxy (11/15/2017 3:24 PM EST) athologist Signature 25-OH Vit D 32 30 - 100 [facility] Total ng/mL [facility] Comment: Deficient <10 ng/mL Insufficient 10 to 29 ng/mL Sufficient 30 to 100 ng/mL Potential Intoxication >100 ng/mL According to the [place] National Osteoporosi s Foundation, Vitamin D concentrations >30 ng/mL are sufficient to protect bone health. ??The National Kidney Foundation has similarly stated that pat ients with Vitamin D concentrations <30ng/mL should be considered to be insu fficient or deficient. http://PixelOpt[employer].com/nkf-guidelines http://[employer].com/nejm-VitD The [employer] Vitamin D Immunoassay detec ts both 25-OH Vitamin D2 and 25-OH Vitamin D3, but only a total Vitamin D c oncentration is reported. Specimen Anatomical Collection Method Collection Time Receive d Time (Source) Location / / Volume Laterality Blood specimen 11/15/2017 3:24 PM 018 7:54 (specimen) EST AM EST Resulting Agency Comment Spec In Lab Patty Hebert MD CHEMISTRY ORDERABLES Performing Organization Address City/State/Z[place] [address] (ABNORMAL) Comprehensive metabolic panel (non-fasting) (11/15/2017 3:24 PM EST) athologist Signature Glucose Lvl 94 65 - 199 [facility] mg/dL [facility] Comment: Diabetes: >=200 mg/dL plus symp toms BUN 14 8 - 18 mg/dL [facility] Creatinine 0.92 0.70 - 1.20 mg/dL [facility] Sodium 142 135 - 145 mmol/L [facility] Potassium 4.0 3.5 - 5.0 mmol/L [facility] Comment: Please note: ??Patients with WBC >100,00 0 may have falsely elevated Potassium levels. ??For accurate Potassium quantif ication in these patients send serum separator tube (gold top) for subsequent determinations. ??Contact the Clinical Chemistry Laboratory if there are any qu estions. Chloride 106 98 - 107 mmol/L [facility] CO2 24 22 - 31 mmol/L [facility] Anion Gap 12 5 - 15 mmol/L [facility] Calcium 9.0 8.5 - 10.5 mg/dL [facility] Total Protein 7.5 6.1 - 8.0 gm/dL [facility] Albumin 4.0 3.2 - 5.2 gm/dL [facility] AST 18 0 - 30 unit/L [facility] ALT 16 0 - 30 unit/L [facility] Alk Phos 107 (H) 40 - 104 unit/L [facility] Total Bilirubin 0.2 0.2 - 1.3 mg/dL [facility] Estimated GFR >60 >=60 [facility] Comment: The reported eGFR should be multiplied b y 1.2 for patients. The MDRD is not an appropriate measure o f renal function for patients with body mass extremes or in patients with acute kidney failure. http://Imagimod/DHnkdep http://Imagimod/DHMCnkf Specimen Anatomical Collection Method Collection Time Receive d Time (Source) Location / / Volume Laterality Blood specimen 11/15/2017 3:24 PM 018 3:29 (specimen) EST PM EST Resulting Agency Comment Spec In Lab Patty Hebert MD CHEMISTRY ORDERABLES Performing Organization Address City/[facility]/[place] [address] (ABNORMAL) Urine culture (11/15/2017 3:23 PM EST) Patholo gist Method Time Signature Urine Culture 10,000-49,000 cfu/ml mixed mucosal stephan [facility] Note: Culture shows multiple bacterial species suggesting [facility] [place] contamination. If symptoms c ontinue to indicate urinary tract infection, submit [facility] a new specimen. [facility] LABOR[facility]ORY Specimen Anatomical Collection Method Collection Time Receive d Time (Source) Location / / Volume Laterality Urine specimen 11/15/2017 3:23 PM 018 4:08 (specimen) EST PM EST Resulting Agency Comment Spec In Lab Patty Hebert MD MICROBIOLOGY - GENERAL ORDER CELESTE Performing Organization Address City/[facility]/[place] [address] (ABNORMAL) Urinalysis Microscopic Exam (11/15/2017 3:23 PM EST) P athologist Signature RBC UA 3 0 - 4 /HPF [facility] WBC UA 6 (H) 0 - 5 /HPF [facility] Squam Epith UA 1 <=4 /HPF [facility] Specimen Anatomical Collection Method Collection Time Receive d Time (Source) Location / / Volume Laterality Urine specimen 11/15/2017 3:23 PM 018 3:28 (specimen) EST PM EST Resulting Agency Comment Spec In Lab Patty Hebert MD URINE ORDERABLES Performing Organization Address City/[facility]/ZIP [place] [address] (ABNORMAL) Urinalysis with reflex Culture (11/15/2017 3:23 PM EST) [facility] Method Time Signature Glucose UA Negative Negative [facility] mg/dL [facility] Protein UA Negative Negative [facility] mg/dL [facility] Bilirubin UA Negative Negative [facility] mg/dL [facility] Comment: Clinical correlation required for positi ve Urine Bilirubin results as false positive may occur with some drugs and d rug related products. If a false positive is suspected a serum total bili collazo should be considered if clinically indicated. Urobilinogen UA Normal Normal mg/dL [facility] pH UA 6.0 5.0 - 8.0 [facility] Blood UA Negative Negative mg/dL [facility] Ketones UA Negative Negative mg/dL [facility] Nitrite UA Negative Negative [facility] Leukocytes UA Moderate (A) Negative [facility] Appearance UA Clear Clear [facility] Spec Longs UA 1.019 1.002 - 1.030 [facility] Color UA Yellow Yellow [facility] Culture Reflexed Yes [facility] Specimen Anatomical Collection Method Collection Time Receive d Time (Source) Location / / Volume Laterality Urine specimen 11/15/2017 3:23 PM 018 3:28 (specimen) EST PM EST Resulting Agency Comment Spec In Lab Patty Hebert MD URINE ORDERABLES Performing Organization Address City/State/[place] [address] documented in this encounter Visit Diagnoses Diagnosis Dry eyes Tear film insufficiency, unspecified Dry mouth Disturbance of salivary secretion Polyarthralgia Pain in joint, multiple sites Abnormal blood chemistry level Other abnormal blood chemistry Fatigue, unspecified type Polyarthralgia Pain in joint, multiple sites Fatigue, unspecified type documented in this encounter Care Teams Bag Shaker Relationship Specialty Start Date End Date Anthony Samaniego MD PCP - General 07/16/[address] [place] [address] documented as of this encounter
--- OUTSIDE RECORDS SUMMARY | 2022-05-13 01:46 | XMS_ITS | Encounter Summary ---
:1960 Author Organization [facility] [place] [address] Care Team Providers Name Role Phone Anthony Samaniego MD Primary Care Provider [phone] Encounter Details Date Type Department Care Team Description 07/23/2014 Orders Only Gastroenterology at [facility] [place] [address] GASTROENTEROLOGY [place] [id number] (Wo rk) Social History Tobacco Use Types [...] Office Visit Rheumatology Benny Solano MD [facility] er [place], [place] [address] (Wo rk) documented as of this encounter Procedures Procedure Name Priority Date/Time Associated Diagnosis Comme nts FILM LIBRARY Routine 07/23/2014 9:00 AM Results f or this STORAGE ONLY CT EDT procedure ar e in ABDOMEN AND PELVIS the resul ts section. documented in this encounter Results Film Library- Storage only CT abdomen & pelvis (07/23/2014 9:00 AM EDT) Anatomical Region Laterality Modality Abdomen, Pelvis Other Specimen (Source) Anatomical Collection Method Collection Time Re ceived Time Location / / Volume Laterality 07/23/2014 9:00 AM EDT Narrative 07/30/2014 9:05 AM EST This is a Non-reportable exam Procedure Note JOSE, UNSIGNED REPORT - 07/30/2014Formatt ing of this note might be different from the original. This is a Non-reportable exam Keyon Cantu MD IM FILM LIBRARY ORDERABLES documented in this encounter Visit Diagnoses Not on filedocumented in this encounter Care Teams Excelsior Machine Operator Relationship Specialty Start Date End Date Anthony Samaniego MD PCP - General 07/16/[address] [place] [address] documented as of this encounter
--- OUTSIDE RECORDS SUMMARY | 2022-05-13 01:46 | XMS_ITS | Encounter Summary ---
:1960 Author Organization [facility] [place] [address] Care Team Providers Name Role Phone Anthony Samaniego MD Primary Care Provider [phone] Encounter Details Date Type Department Care Team Description 07/21/2014 Orders Only Gastroenterology at [facility] Roberta Dempsey Abdominal pain [facility] Joshua Meza RN (Primary Dx) [place] [address] Social History Tobacco Use Types Packs/Day [...] Benny Solano MD [facility] er [place], [place] [address] (Wo rk) documented as of this encounter Visit Diagnoses Diagnosis Abdominal pain - Primary Abdominal pain, unspecified site documented in this encounter Care Teams Recycle Coordinator Relationship Specialty Start Date End Date Anthony Samaniego MD PCP - General 07/16/[address] [place] [address] documented as of this encounter
--- OUTSIDE RECORDS SUMMARY | 2022-05-13 01:46 | XMS_ITS | Encounter Summary ---
:1960 Author Organization [facility] [place] [address] Care Team Providers Name Role Phone Anthony Samaniego MD Primary Care Provider [phone] Encounter Details Date Type Department Care Team Description 08/22/2018 Telephone Gastroenterology at [facility] Roberta Dempsey, [facility] [place] [address] Social History Tobacco Use Types Packs/Day [...] Telephone Encounter - Roberta Dempsey RN - 08/22/2018 1:48 PM EST Ai calls becuase she had her CT scan this am at her local hospital and started to have nausea andvomiting while still in radiology. She was going to go to the ED while there but wasadvised to call her doctor by the radiology personal rather. She has been home since 9 am and has not stopped vomiting. Unable to even take in small sips of liquids. Advised she go to her local ED as she probable needs hydration at this point and IV antiemetics. Pt agreeable to plan documented in this encounter Plan of Treatment Upcoming Encounters Date Type Specialty Care Team Description 06/03/2022 Office Visit Rheumatology Benny Solano MD [facility] Medical [facility] [place] [address] (Wo rk) documented as of this encounter Visit Diagnoses Not on filedocumented in this encounter Care Teams Hospice Executive Director Relationship Specialty Start Date End Date Anthony Samaniego MD PCP - General 07/16/[address] [place] [address] [address] [place] [address] documented as of this encounter
--- OUTSIDE RECORDS SUMMARY | 2022-05-13 01:46 | XMS_ITS | Encounter Summary ---
:1960 Author Organization [place] [address] Care Team Providers Name Role Phone Anthony Samaniego MD Primary Care Provider [phone] Reason for Visit Diagnostic Test (Routine) - Closed Specialty Diagnoses / Procedures Referred By Contact Refer red To Contact Radiology Diagnoses Celiac disease/sprue Chronic constipation Sjogren's syndrome, with unspecified organ involvement Luca Cain MD [facility] Rad Nuclear Med Procedures NM Gastric Emptying Scan [facility] [place] [address] [place] [address] Fax: Referral ID Status Reason Start Date Expiration Date Visits V isits Requested Authorized [id number] Closed Specialty 08/06/2018 08/06/2019 1 1 Service Requested Encounter Details Date Type Department Care Team Description 01/23/2019 Hospital Encounter Nuclear Medicine at Mamie Cain Mary Hitchcock MD [facility] [address] Oliver [place] [address] [place] [address] [phone] (Wo rk) Social History Tobacco Use Types [...] Benny Solano MD [facility] [address], [place] [address] (Wo rk) documented as of this encounter Procedures Procedure Name Priority Date/Time Associated Diagnosis Comme [facility] NM GASTRIC EMPTYING Routine 01/23/2019 12:25 [...] below. ? Electronically signed by: ANGELIA Sifuentes [facility] ([phone]), at 01/23/2019 5:05 PM Narrative 01/23/2019 5:05 [...] on filedocumented in this encounter Care Teams Car Runner Relationship Specialty Start Date End Date Anthony Samaniego MD PCP - General 07/16/[address] [place] [address] documented as of this encounter
--- OUTSIDE RECORDS SUMMARY | 2022-05-13 01:47 | XMS_ITS | Encounter Summary ---
:1960 Author Organization [place] [address] Care Team Providers Name Role Phone Vasyl Whittaker DO Primary Care Provider Encounter Details Date Type Department Care Team Description 06/21/2010 Orders Only Lab [facility] Bay Rodriguez MD [facility] Joshua lizarraga [place] [address] [place] [address] [phone] (Wo rk) Social History Tobacco Use Types Packs/Day Years Used Date Never Assessed Sex Assigned at Date Recorded Not on file documented as of this encounter Plan of Treatment Upcoming Encounters Date Type Specialty Care Team Description 06/03/2022 Office Visit Rheumatology Benny Solano MD [facility] er [place], [place] [address] (Wo rk) documented as of this encounter Procedures Procedure Name Priority Date/Time Associated Diagnosis Comme nts CORTISOL, SALIVA Routine 06/21/2010 12:05 AM Resu lts for this EDT procedure are i n the results section. documented in this encounter Results CORTISOL, SALIVA (06/21/2010 12:05 AM EDT) P athologist Signature Milton Saliva <50 ng/dL [facility] Comment: -- REFERENCE VALUE -- 7:00-9:00 am: 100-750 3:00-5:00 pm: <401 11:00 pm-Midnight: <100 Test Performed by: [facility] [address], [place] [address] Buff Wheel Fabricator: Natalia Berrios, Ph. D. Milton Saliva AM NOT APPLICABLE CERNER MIL LENNIUM Milton Saliva PM NOT APPLICABLE CERNER MIL LENNIUM Milton [place]iva Midnight NOT APPLICABLE CERN ER MILLENNIUM Specimen Anatomical Collection Method Collection Time Receive d Time (Source) Location / / Volume Laterality Specimen of 06/21/2010 12:05 07/01/2010 unknown material AM EDT 12:22 PM ED T (specimen) Bay Rodriguez MD BODY FLUIDS AND STOOLS ORDER CELESTE Performing Organization Address City/State/[place] [address] [place] documented in this encounter Visit Diagnoses Not on filedocumented in this encounter Care Teams Windows Application Developer Relationship Specialty Start Date End Date Vasyl Whittaker DO PCP - General 08/17/10 07/15/[address] [place] [address] documented as of this encounter
--- OUTSIDE RECORDS SUMMARY | 2022-05-13 01:47 | XMS_ITS | Encounter Summary ---
:1960 Author Organization [facility] [place] [address] Care Team Providers Name Role Phone Vasyl Whittaker Primary Care Provider Encounter Details Date Type Department Care Team Description 04/05/2013 Hospital Encounter Laboratory Susanna Mackay, [address] [address] [place] [id number] (Wo rk) Social History Tobacco Use Types [...] mg tablet every 6 hours as needed. citalopram (CELEXA) 40 mg Take 40 mg by mouth 0 10/24/2018 tablet daily. documented as of this encounter Plan of Treatment Upcoming Encounters Date Type Specialty Care Team Description 06/03/2022 Office Visit Rheumatology Benny Solano MD [facility] [address] [place] [address] (Wo rk) documented as of this encounter Procedures Procedure Name Priority Date/Time Associated Diagnosis Comme nts NON-MINERAL TECHNOLOGIST FINAL Routine 04/05/2013 9:08 PM Results for this REPORT EDT procedure are i n the results section. documented in this encounter Results Non-Rehab Services Aide Final Report (04/05/2013 9:08 PM EDT) Component Value Ref Test Analysis Performed At [facility] Range Method Time Signature Non-Rehab Services Aide Final CERNER Report ? [facility] ? Provider: ?? SUSANNA MACKAY ?? Pt. Name: ?? MARY Rivera, SHELTON Zhang ? Acc #: ?[id number] ?Pt. MRN: ?[id number] ? Col Date: ?? 3 ? /Sex: ?1960,(53 years),Female ? Rec Date: ?? 04/08/2013 ? LOC: ?[facility] ? CYTOPATHOLOGY: ??NGYN ? ---Adequacy--- ? Specimen submitted is satisfactory. ? ---Cytopathologic Diagnosis--- ? Negative for Malignancy ? 04/10/13 ?Screened by: ? REP ? Rescreened by: ?? SATNAM ? 04/10/13 ?Verified by: ? Iban AJ, Terrance Lewis ?Pathol ogist ? (Electronic Signature) ? ---Comment--- ? Urine, Voided: ? Urothelial cells, squamous cells, red blood cells and white blood cells ? present. ? ---Clinical Information--- ? Specimen Source: ?Urine, Voided (approx 25 ml clear yellow, white) ? Pertinent Clinical Data and Significant Therapy: ?Dysuria, urgency ? Clinical Impression: ?(not provided) ? Pertinent Radiologic Findings: ?(not provided) ? Gross Description: ?Received in 50% ETOH, approximately 30 ml. total volume of clear, yellow ? fluid. ?Total Preparation: Liquid Based Prep 1. Specimen (Source) Anatomical Collection Method Collection Time Re ceived Time Location / / Volume Laterality 04/05/2013 9:08 PM EDT Susanna Mackay MD PATHOLOGY/CYTOLOGY ORDERABLE S Performing Organization Address City/State/[place] [address] [facility] documented in this encounter Visit Diagnoses Not on filedocumented in this encounter Care Teams Sign Wirer Relationship Specialty Start Date End Date Vasyl Whittaker DO PCP - General 08/17/10 07/15/[address] [place] [address] documented as of this encounter
--- OUTSIDE RECORDS SUMMARY | 2022-05-13 01:47 | XMS_ITS | Encounter Summary ---
:1960 Author Organization [facility] [place] [address] Care Team Providers Name Role Phone Vasyl Whittaker DO Primary Care Provider Encounter Details Date Type Department Care Team Description 06/29/2010 Orders Only Lab [facility] Bay Rodriguez MD [facility] Joshua lizarraga [place] [address] [place] [address] [phone] (Wo rk) Social History Tobacco Use Types Packs/Day Years Used Date Never Assessed Sex Assigned at Date Recorded Not on file documented as of this encounter Plan of Treatment Upcoming Encounters Date Type Specialty Care Team Description 06/03/2022 Office Visit Rheumatology Benny Solano MD [facility] er [place], [place] [address] (Wo rk) documented as of this encounter Procedures Procedure Name Priority Date/Time Associated Diagnosis Comme nts CORTISOL, SALIVA Routine 06/29/2010 12:02 AM Resu lts for this EDT procedure are i n the results section. documented in this encounter Results CORTISOL, SALIVA (06/29/2010 12:02 AM EDT) P athologist Signature Milton Saliva <50 ng/dL [facility] Comment: -- REFERENCE VALUE -- 7:00-9:00 am: 100-750 3:00-5:00 pm: <401 11:00 pm-Midnight: <100 Test Performed by: [facility] [address], [place] [address] Marine Fisheries Technician: Natalia Berrios, Ph. D. Milton Saliva AM NOT APPLICABLE CERNER MIL LENNIUM Milton Saliva PM NOT APPLICABLE CERNER MIL LENNIUM Milton Saliva Midnight NOT APPLICABLE CERN ER MILLENNIUM Specimen Anatomical Collection Method Collection Time Receive d Time (Source) Location / / Volume Laterality Specimen of 06/29/2010 12:02 07/01/2010 unknown material AM EDT 12:22 PM ED T (specimen) Bay Rodriguez MD BODY FLUIDS AND STOOLS ORDER CELESTE Performing Organization Address City/State/[place] [address] GERARDO MORILLO documented in this encounter Visit Diagnoses Not on filedocumented in this encounter Care Teams Survey Chief Relationship Specialty Start Date End Date Vasyl Whittaker DO PCP - General 08/17/10 07/15/[address] [place] [address] documented as of this encounter
--- OUTSIDE RECORDS SUMMARY | 2022-05-13 01:47 | XMS_ITS | Encounter Summary ---
:1960 Author Organization [place] [address] Care Team Providers Name Role Phone Vasyl Whittaker Primary Care Provider Reason for Visit Reason Comments Follow-up Encounter Details Date Type Department Care Team Description 12/31/2012 Follow-Up Gastroenterology at [facility] Keyon Cantu, Celiac disease [facility] Joshua lizarraga MD (Primary Dx) [place] [address] [facility] [phone] CENTER GASTROENTEROLOGY [place] [address] Social History Tobacco Use Types Packs/Day Years Used Date Never Smoker Smokeless Tobacco: Never Used Sex Assigned at Date Recorded Not on file documented as of this encounter Last Filed Vital Signs Vital Sign Reading Time Taken Comments Blood Pressure 141/84 12/31/2012 9:35 AM EDT Pulse 67 12/31/2012 9:35 AM EDT Temperature - - Respiratory Rate - - Oxygen Saturation - - Inhaled Oxygen Concentration - - Weight 88.9 kg (196 lb) 12/31/2012 9:35 AM EDT Height 158.8 cm (5' 2.5) 12/31/2012 9:35 AM EDT Body Mass Index 35.28 12/31/2012 9:35 AM EDT documented in this encounter Progress Notes Keyon Cantu MD - 12/31/2012 9:38 AM EDT Problems: 1. Celiac disease. -Chronic dyspeptic [...] no Stones. 6. RLQ pain CT scan [facility], normal Ultrasound, ovarian cyst stable 7. CRC mother, last colo 2006 Subjective: I am seeing Ai Morrison for a second time in the office, formerly saw Dr. Figueroa. Chronic dyspeptic complaints. Had EGD in 2007, which was normal and biopsies, repeated in 2009 and this demonstrated she had celiac disease. She had serologic testing done, which was supportive but was not done at [facility]. She had right upper quadrant pain and had her gallbladder out a while back. She complains of chronic constipation. Had a Sitz Marker study in 2007, which was negative. I tried her on MiraLAX after my last office visit. She said this gave her low back pain so she stopped it. She is taking a stool softener, I believe Colace. This helps her move her bowels every day. She has had right lower quadrant pain and was into the Emergency Room. Had a CT scan, which by her report she says was negative. Her laboratory tests when I last saw her showed a normal CBC but a borderline low iron. She wants further testing. She wants a capsule study. She feels her bowels have been damaged. She wants a colonoscopy. She has a family history of colon cancer. She complains of chronic right lower quadrant pain every day. On physical exam, she is a pleasant woman in no acute distress. Lungs are clear to auscultation. Heart regular rate and rhythm. Abdomen soft, nondistended. Moderate right lower quadrant tenderness. No appreciable masses. Extremities without edema, cyanosis, or clubbing. Impression: Patient with chronic dyspeptic complaints. Initial biopsies were normal, then repeated and she had evidence of celiac disease back in 2009. She has been on the diet for some time now. She has chronic constipation. I discussed with patient that I do not think she needs a capsule endoscopy. She does, however, have a family history of colon cancer. Last colonoscopy in 2006 so she is due. We can also repeat an upper endoscopy at that time to biopsy and just verify that she has healed from the celiac standpoint. Her most recent tTG was negative. Plan: 1. Repeat CBC and iron studies today per her request. 2. Continue gluten-free diet. 3. Continue vitamin supplements. She prefers drinking vitamin water. She thinks she absorbs this better. 4. We will perform colonoscopy colon cancer screening as well as EGD for biopsy. 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 She does not smoke. She drinks two times a month. She has been for three years. Two children who are healthy. Family history is notable for mother with colon cancer and some type of peritonitis. She had a colostomy at one point. Her father had heart disease and high blood pressure, and her mother had a cerebral aneurysm. documented in this encounter Miscellaneous Notes Addendum Note - Ibrahima Mae - 12/31/2012 10:42 AM EDT Addended by: IBRAHIMA MAE on: 12/31/2012 10:42 AM Modules accepted: Orders documented in this encounter Plan of Treatment Upcoming Encounters Date Type Specialty Care Team Description 06/03/2022 Office Visit Rheumatology Benny Solano MD [facility] Medical [facility] [address] [place], [place] [address] (Wo rk) documented as of this encounter Procedures Procedure Name Priority Date/Time Associated Diagnosis Comme nts DIFFERENTIAL, Routine 12/31/2012 10:45 AM Results for this AUTOMATED EDT procedure are i n the results section. IRON AND TIBC Routine 12/31/2012 10:45 AM Celiac disease Resul ts for this EDT procedure are i n the results section. CBC (WITH DIFF) Routine 12/31/2012 10:45 AM Celiac disease Res ults for this EDT procedure are i n the results section. documented in this encounter Results Differential, Automated (12/31/2012 10:45 AM EDT) P athologist Signature Neutrophils % 48.7 34.0 - CERNER 71.0 % MILLENNIUM Neutr Abs (ANC) 2.81 1.50 - CERNER 6.30 MILLENNIUM x10(3)/mcL Lymphocytes % 43.2 19.0 - CERNER 53.0 % MILLENNIUM Lymphocytes Abs 2.5 1.0 - 3.6 CERNER x10(3)/mcL MILLENNIUM Monocytes % 5.5 4.0 - 13.0 CERNER % MILLENNIUM Monocyte Abs 0.3 0.2 - 1.0 CERNER x10(3)/mcL MILLENNIUM Eosinophils % 1.9 0.0 - 7.0 CERNER % MILLENNIUM Eosinophils Abs 0.1 0.0 - 0.5 CERNER x10(3)/mcL MILLENNIUM Basophils % 0.7 0.0 - 2.0 CERNER % MILLENNIUM Basophils Abs 0.0 0.0 - 0.2 CERNER x10(3)/mcL MILLENNIUM Immature Gran % 0.00 0.00 - CERNER 0.66 % MILLENNIUM Comment: Immature granulocytes(IG's)percentage an d absolute count will include metamyelocytes, myelocytes, and promyelo cytes. Blood smears from CBCs yielding IG's will be scanned manually for concor dance. If this scan disagrees with the automated IG or if promyelocytes are not ed, a manual differential will be performed. Anisha Gran Abs 0.00 0.00 - 0.05 x10(3)/mcL CER NER MILLENNIUM Specimen Anatomical Collection Method Collection Time Receive d Time (Source) Location / / Volume Laterality Blood specimen 12/31/2012 10:45 3 (specimen) AM EDT 10:54 AM EDT Keyon Cantu MD HEMATOLOGY ORDERABLES Performing Organization Address City/State/ZIP Code Phon e Number [place] [id number] LAB[address] CERNER MILLENNIUM Iron and TIBC (12/31/2012 10:45 AM EDT) athologist Signature Iron 109 30 - 150 CERNER mcg/dL MILLENNIUM TIBC 273 250 - 450 CERNER mcg/dL MILLENNIUM Iron Saturation 40 20 - 50 % CERNER MILLENNIUM Specimen Anatomical Collection Method Collection Time Receive d Time (Source) Location / / Volume Laterality Blood specimen 12/31/2012 10:45 3 (specimen) AM EDT 10:54 AM EDT Resulting Agency Comment Spec In Lab Keyon Cantu MD CHEMISTRY ORDERABLES Performing Organization Address City/State/[place] [address] CERNER MILLENNIUM (ABNORMAL) CBC (with Diff) (12/31/2012 10:45 AM EDT) athologist Signature WBC 5.8 4.0 - 10.0 CERNER x10(3)/mcL MILLENNIUM RBC 4.11 3.93 - CERNER 5.22 MILLENNIUM x10(6)/mcL Hemoglobin 13.6 11.2 - CERNER 15.7 gm/dL MILLENNIUM Hematocrit 40.5 34.0 - CERNER 45.0 % MILLENNIUM MCV 98.5 (H) 79.0 - CERNER 94.0 fL MILLENNIUM MCH 33.1 (H) 26.6 - CERNER 32.2 pg MILLENNIUM MCHC 33.6 32.0 - CERNER 36.5 gm/dL MILLENNIUM Platelets 258 145 - 370 CERNER x10(3)/mcL MILLENNIUM RDWSD 47.6 (H) 35.0 - CERNER 46.0 fL MILLENNIUM RDWCV 13.3 10.9 - CERNER 14.4 % MILLENNIUM MPV 10.7 9.0 - 12.0 CERNER fL MILLENNIUM Specimen Anatomical Collection Method Collection Time Receive d Time (Source) Location / / Volume Laterality Blood specimen 12/31/2012 10:45 3 (specimen) AM EDT 10:54 AM EDT Resulting Agency Comment Spec In Lab Keyon Cantu MD HEMATOLOGY ORDERABLES Performing Organization Address City/[facility]/ZIP [place] [address] [facility] Drive [facility] documented in this encounter Visit Diagnoses Diagnosis Celiac disease - Primary documented in this encounter Care Teams Professor Of Religious Studies Relationship Specialty Start Date End Date Vasyl Whittaker DO PCP - General 08/17/10 07/15/[address] [place] [address] documented as of this encounter
--- OUTSIDE RECORDS SUMMARY | 2022-05-13 01:47 | XMS_ITS | Encounter Summary ---
:1960 Author Organization [facility] [place] [address] Care Team Providers Name Role Phone PanfiloVasyl roe Primary Care Provider Encounter Details Date Type Department Care Team Description 02/06/2013 Hospital Encounter Gastroenterology at [facility] Keyon Tellez, [facility] [place] [address] [facility] [phone] [facility] [place], [place] [address] Social History Tobacco Use Types Packs/Day Years Used Date Never Smoker Smokeless Tobacco: Never Used Alcohol Use Standard Drinks/Week Comments Yes 1 (1 standard drink = 0.6 oz pure alcoho l) Sex Assigned at Date Recorded Not on file documented as of this encounter Last Filed Vital Signs Vital Sign Reading Time Taken Comments Blood Pressure 111/69 02/06/2013 11:56 AM EDT Pulse 67 02/06/2013 11:56 AM EDT Temperature 36.6 ??C (97.9 ??F) 02/06/2013 9:55 AM EDT Respiratory Rate 12 02/06/2013 11:56 AM EDT Oxygen Saturation 100% 02/06/2013 11:56 AM EDT Inhaled Oxygen Concentration - - Weight 86.2 kg (190 lb) 02/06/2013 9:55 AM EDT Height - - Body Mass Index 34.2 12/31/2012 9:35 AM EDT documented in this encounter Discharge Instructions Discharge Uriel Piper RN - 02/06/2013 12:01 PM EDT Upper GI Endoscopy with Biopsies and Colonoscopy What to expect after the procedure You may feel a little more gassy or bloated than usual, this is normal. You should expect the return of normal bowel function in the next 2 to 3 days. Because some biopsies were taken, you may see a little blood with the next few bowel movements, this should be a small amount ( less than a few tablespoons) and will resolve on it's own. ACTIVITY Because of the sedation that you received Your judgement and reaction time are effected ?? Go home and rest for the remainder for the day. You may resume your normal activities tomorrow ?? Change from one position to the next slowly because you may lose your balance unexpectedly. ?? Be careful on stairs, as you may be unsteady. FOR THE NEXT 24 HRS ?? DO NOT DRIVE OR OPERATE MACHINERY ?? DO NOT DRINK ALCOHOLIC BEVERAGES ?? DO NOT SIGN LEGAL DOCUMENTS ?? If you are a smoker: DO NOT SMOKE WHILE YOU ARE ALONE Diet ?? Start by eating small portions of foods that ordinarily will not upset your stomach, avoid gas producing foods for the next few days. ?? Be gentle with what you choose to start with ?? A soft diet may be helpful for the next 3 days as this may help to keep your stools soft. ?? Drink plenty of fluids ( unless your doctor has told you not to). Medicines Avoid medicines that influence the way your blood clots for the next week. These would include anti-inflammatory medicine, such as ibuprofen( Advil, Motrin) and naproxen ( Aleve). If you need something for discomfort, Tylenol (Acetaminophen) is safe if used as directed. Your Doctor will tell you whento restart your prescribed blood thinners You may have a mild sore throat. Ice chips, popsicles, over the counter throat lozenges or spray may help numb your throat. This procedure should not cause a fever. The IV site-- slight tenderness, or redness is normal, you can use warm compresses if you get concerned. If the tenderness +/or redness increases or foul drainage and a red streak occurs, please contact your PCP immediately. When should you call for help? Call 911 anytime you think you may need emergency care. For example If you pass out (loss of consciousness) If you pass maroon or bloody stools If you have severe belly pain If you cough up blood. If you vomit blood or what looks like coffee grounds. Call your healthcare provider or seek immediate medical care if: Your stools are black or tar like Your stools have streaks of blood that is more pronounced with each BM You have belly pain, or your belly is swollen and firm You vomit You have a fever You are very dizzy You have trouble swallowing. You are sick to your stomach or cannot keep fluids down. Watch closely for changes in your health, and be sure to contact your doctor if you have any problems, such as Your throat still hurts after a day or two You do not get better as expected. Your Doctor will let you know when you will need your next colonoscopy. The results of your test andyour risk for colorectal cancer will help your doctor decide how often you need to be checked. Monday-Monday Clinic [phone] 8a-5p Same Day Endo [phone] 7a-8p Otherwise contact [phone] and ask to speak to the museum guide client support professional Follow up care is a castellano part of your treatment and safety. Be sure to make and go to all appointments, and call your doctor if you are having problems. Discharge instructions reviewed with patient who expresses understanding documented in this encounter Medications at Time of Discharge Medication Sig Dispensed Refills Start Date End Date DOCUSATE CALCIUM (STOOL Take by mouth as 0 SOFTENER ORAL) needed. ibuprofen (ADVIL;MOTRIN) Take 800 mg by mouth 0 11/26/2021 800 mg tablet every 6 hours as needed. citalopram (CELEXA) 40 mg Take 40 mg by mouth 0 10/24/2018 tablet daily. documented as of this encounter H&P Notes Keyon Tellez MD - 02/06/2013 11:04 AM EDT Gastroenterology and Hepatology Pre-Procedure History and Physical Exam Procedure: Colonoscopy: EGD Indication: FHX, sprue There is no problem list on file for this patient. EXAM: HEENT: Airway examined, oropharynx clear LUNGS: Clear to auscultation HEART: Regular rate and rhythm, normal S1, S2 ABDOMEN: Normal bowel sounds, soft, non tender, non distended, A/P Proceed with the planned endoscopic procedure. Risks and benefits of the procedure explained to the patient. Consent signed. documented in this encounter Miscellaneous Notes Miscellaneous - Provider, Scanning - 02/06/2013 9:26 PM EDT Miscellaneous - Provider, Scanning - 02/06/2013 1:33 PM EDT documented in this encounter Plan of Treatment Upcoming Encounters Date Type Specialty Care Team Description 06/03/2022 Office Visit Rheumatology Benny Solano MD [facility] [address] [place], [place] [address] (Wo rk) documented as of this encounter Procedures Procedure Name Priority Date/Time Associated Comments Diagnosis SURGICAL PATHOLOGY Routine 02/06/2013 1:44 PM Res ults for this REPORT EDT procedure are i n the results section. SPECIMEN TO PATHOLOGY Routine 02/06/2013 11:52 Re sults for this AM EDT procedure are i n the results section. EGD, UPPER GI 02/06/2013 11:12 FHX CRC,F/U CELIAC ENDOSCOPY AM EDT SPRUE (LOCAL) COLONOSCOPY, 02/06/2013 11:12 FHX CRC,F/U CELIAC DIAGNOSTIC AM EDT SPRUE (LOCAL) COLONOSCOPY Routine 02/06/2013 7:50 AM Results f or this EDT procedure are i n the results section. UPPER GI ENDOSCOPY Routine 02/06/2013 7:48 AM Res ults for this EDT procedure are i n the results section. documented in this encounter Results Surgical Pathology Report (02/06/2013 1:44 PM EDT) [facility] Method Time Signature Surgical CERNER Pathology ? [facility] Report ? Provider: ?? KEYON TELLEZ ?Pt. Name: ?? KENNY FORD, AI Zhang ? Acc #: ?[id number] ?Pt. MRN: ?[id number] ? Col Date: ?? 3 ? /Sex: ?1960,(53 years),Female ? Rec Date: ?? 02/06/2013 ? LOC: ?4T ? SURGICAL PATHOLOGY ? ---Pathologic Diagnosis--- ? Duodenum, biopsy: ?Duodenal mucosa, negative for diagnostic abnorma lity. ? CR-0 ? 02/07/13 ? AJE ? 02/07/13 Verified by: ? Nigel Cueto MD ? Pathologist ? (Electronic Si gnature) ? The attending pathologist whose signature appears o n this report has ? reviewed all diagnostic slides and has edited the mohamud ss and/or ? microscopic portion of the report in rendering the fi nal pathologic ? diagnosis. ? ---Microscopic Description--- ? Slides reviewed, microscopic description not recorded . ? ---Gross Description--- ? A - Labeled/Fixative: Biopsy of duodenum, formalin. ? Quantity/Size: Five, averaging 0.3 cm. ? Tissue Description: Soft, pink-márquez tissues. ? Sections/Processing: (T1) ??ejr ? ---Clinical Information--- ? Specimen Submitted: ? A - Bx of duodenum ? Clinical History: ? Patient with sprue, assess for response to therapy ? Clinical Diagnosis: ? Same Specimen (Source) Anatomical Collection Method Collection Time Re ceived Time Location / / Volume Laterality 02/06/2013 1:44 PM EDT Keyon Tellez MD PATHOLOGY/CYTOLOGY ORDERABLE S Performing Organization Address City/[facility]/[place]IP [place] [address] CERNER MILLENNIUM Specimen to Pathology (surgical or derm) (02/06/2013 11:52 AM EDT) Specimen Anatomical Collection Method Collection Time Receive d Time (Source) Location / / Volume Laterality AP Specimen 02/06/2013 11:52 02/06/2013 AM EDT 11:52 AM EDT Narrative CERNER MILLENNIUM - 02/06/2013 11:52 AM EDT Specimen requisition ordered. ??Separate Pathology report to follow Keyon Tellez MD PATHOLOGY/CYTOLOGY ORDERABLE S Performing Organization Address City/[facility]/ZIP Code Phon e Number [address] CERNER MILLENNIUM COLONOSCOPY (02/06/2013 7:50 AM EDT) [facility] gist Method Time Signature COLONOSCOPY [facility] PROVATION Endoscopy Patient Name: Ai Morrison ? Procedure Date: 02/06/2013 7:50 AM ? N: [id number] ? Date of : 1960 ? Age: 53 ? Order #: [id number] ? Procedure: ? Colonoscopy Indications: ? FH of Colon Cancer - 1st degree ? relative, constipation Providers: ? Keyon Tellez MD, Soraya Richards ? Ashlee, RN, Gio Stuart MD: ?Vasyl Whittaker, DO Medicines: ? Midazolam 4 mg IV, Fentanyl 200 ? micrograms IV Complications: ? No immediate complications. Procedure: ? Pre-Anesthesia Assessment: ? - ASA Grade Assessment: I - A normal, ? healthy patient. ? The procedure, indications, b enefits, ? risks and alternatives were e xplained [...] Th e ? colonoscopy was performed wit cookie ? difficulty. The patient tho ated the ? procedure well. The quality o f the ? bowel preparation was excelle nt. ? Scope withdrawal time was 24 minutes. ? Findings: ? Multiple small-mouthed diverticula were found in the ? sigmoid colon and in the descending colon. The ? terminal ileum appeared normal. Internal hemorrhoids ? were found during retroflexion and were small. ? Impression: ?- Diverticulosis in the sigmoid co latoya ? and in the descending colon. ? - The examined portion of the ileum ? was normal. ? - Internal hemorrhoids. Recommendation: ?- Repeat colonoscopy in 5 years for ? surveillance. ? Keyon Tellez MD 02/06/2013 11:41 AM This report has been signed electronically. Number of Addenda: 0 Note Initiated On: 02/06/2013 7:50 AM Specimen (Source) Anatomical Collection Method Collection Time Re ceived Time Location / / Volume Laterality 02/06/2013 7:50 AM EDT Vasyl Whittaker DO GENERAL SURGICAL ORDERABLES Performing Organization Address City/State/ZIP Code Phon e Number PROVATION UPPER GI ENDOSCOPY (02/06/2013 7:48 AM EDT) [facility] gist Method Time Signature UPPER GI [facility] PROVATION ENDOSCOPY Endoscopy Patient Name: Ai Morrison ? Procedure Date: 02/06/2013 7:48 AM ? N: [id number] ? Date of : 1960 ? Age: 53 ? Order #: [id number] ? Procedure: ? Upper GI endoscopy Indications: ? h/o sprue assess for response to di et Providers: ? Keyon Tellez MD, Soraya Richards ? Ashlee, RN, Yesi Regan, Gio Post MD: ?Vasyl Whittaker, DO Medicines: ? Midazolam 1 mg IV, Fentanyl 25 ? micrograms IV Complications: ? No immediate complications. Procedure: ? Pre-Anesthesia Assessment: ? - After reviewing the risks a nd ? benefits, the patient was suzanne med in ? satisfactory condition to und ergo the ? procedure. ? - ASA Grade Assessment: I - A normal, ? healthy patient. ? The procedure, indications, b enefits, ? risks and alternatives were e xplained ? to the patient. Specifically ? discussed were potential ? complications including, but not ? limited to, bleeding, perfora tion, ? infection, missing a cancer, and ? adverse medication reactions. The ? Endoscope was introduced thro h the ? mouth, and advanced to the [facility] part ? of duodenum. The patient tole rated ? the procedure well. The upper GI ? endoscopy was accomplished wi [facility] ? difficulty. The patient tho ated the ? procedure well. ? Findings: ? A small hiatus hernia was present from 38-35 cm. The ? Zline was normalThe entire examined stomach was ? normal. The examined duodenum was normal. Biopsies ? were taken with a cold forceps for evaluation of ? celiac disease. ? Impression: ?- Hiatus hernia. ? - Normal stomach. ? - Normal examined duodenum. B iopsy ? was performed. Recommendation: ?- Await pathology results. ? Continue with Gluten free t ? Keyon Tellez MD 02/06/2013 11:59 AM This report has been signed electronically. Number of Addenda: 0 Note Initiated On: 02/06/2013 7:48 AM Specimen (Source) Anatomical Collection Method Collection Time Re ceived Time Location / / Volume Laterality 02/06/2013 7:48 AM EDT Vasyl Whittaker DO GENERAL SURGICAL ORDERABLES Performing Organization Address City/State/ZIP Code Phon e Number PROVATION documented in this encounter Visit Diagnoses Not on filedocumented in this encounter Active and Recently Administered Medications Times are shown in EDT. PRN Medication Order 02/04/2013 02/05/2013 02/06/2013 diphenhydrAMINE (BENADRYL) injection (CANCELED) 1115 (Given - Provider: Soraya Rosado RN) ONCE PRN, Starting 02/06/13 at 1115, Until Mon02/06/13 at 1857, Itching, Intra-Operative (Intra-Procedure), Routine fentaNYL 50mcg/mL injection (CANCELED) 1115 (Given - Provider: Soraya Rosado RN)1117 (Given - Provider: Soraya Rosado RN)1119 (Given - Provider: Soraya Rosado RN)1140 (Given - Provider: Soraya Rosado RN)1143 (Given - Provider: Soraya Rosado RN) ONCE PRN, Starting Mon02/06/13 at 1115, Until Mon02/06/13 at 1857, Pain, Intra- Operative (Intra-Procedure), Routine midazolam (VERSED) injection (CANCELED) 1115 (Given - Provider: Soraya Rosado RN)1117 (Given - Provider: Soraya Rosado RN)1119 (Given - Provider: Soraya Rosado RN)1140 (Given - Provider: Soraya Rosado RN)1144 (Given - Provider: Soraya Rosado RN) ONCE PRN, Starting Mon02/06/13 at 1115, Until Mon02/06/13 at 1857, Sleep, Intra- Operative (Intra-Procedure), Routine documented in this encounter Care Teams Program Services Assistant Relationship Specialty Start Date End Date Vasyl Whittaker DO PCP - General 08/17/10 07/15/[address] [place] [address] documented as of this encounter
--- OUTSIDE RECORDS SUMMARY | 2022-05-13 01:47 | XMS_ITS | Encounter Summary ---
:1960 Author Organization [facility] [place] [address] Care Team Providers Name Role Phone PanfiloVasyl roe Primary Care Provider Encounter Details Date Type Department Care Team Description 02/06/2013 Surgery Gastroenterology at [facility] [place] Keyon Tellez, COLONOSCOPY, [facility] Joshua [place] [address] [facility] [phone] GASTROENTEROLOGY [place] [id number] Social History Tobacco Use Types Packs/Day Years [...] you need to be checked. Monday-Monday Clinic [phone] 8a-5p Same Day Endo [phone] 7a-8p Otherwise contact [phone] and ask to speak to the stretcher drier operator continuous miner operator Follow up care is a castellano part [...] Benny Solano MD [facility] [address], [place] [address] (Wo rk) documented [...] Surgical Pathology Report (02/06/2013 1:44 PM EDT) [facility] Method Time Signature Surgical CERNER Pathology ? [facility] Report ? Provider: ?? KEYON TELLEZ ?Pt. Name: ?? KENNY FORD, AI Zhang ? Acc #: [id number] ?Pt. MRN: ?[id number] ? Col Date: ?? 3 ? /Sex: [...] MD PATHOLOGY/CYTOLOGY ORDERABLE S Performing Organization Address City/[facility]/ZIP Code Phon e Number [address] [facility] Specimen to Pathology (surgical or derm) (02/06/2013 11:52 AM EDT) Specimen Anatomical Collection Method Collection Time Receive d Time (Source) Location / / Volume Laterality AP Specimen 02/06/2013 11:52 02/06/2013 AM EDT 11:52 AM EDT Narrative CERNER MILLENNIUM - 02/06/2013 11:52 AM EDT Specimen requisition ordered. ??Separate Pathology report to follow Keyon Tellez MD PATHOLOGY/CYTOLOGY ORDERABLE S Performing Organization Address City/[facility]/ZIP Code Phon e Number [address] CERNER MILLENNIUM COLONOSCOPY (02/06/2013 7:50 AM EDT) [facility] gist Method Time Signature COLONOSCOPY [facility] PROVATION Endoscopy Patient Name: Ai Morrison ? Procedure Date: 02/06/2013 7:50 AM ? N: [id number] ? Date of : 1960 ? Age: 53 ? Order #: [id number] ? Procedure: ? Colonoscopy Indications: ? FH [...] Hospital gist Method Time Signature UPPER GI [facility] PROVATION ENDOSCOPY Endoscopy Patient Name: Ai Morrison ? Procedure Date: 02/06/2013 7:48 AM ? N: [id number] ? Date of : 1960 ? Age: 53 ? Order #: [id number] ? Procedure: ? Upper GI endoscopy Indications: [...] the ? mouth, and advanced to the [facility] part ? of duodenum. The patient tole rated ? the procedure well. The upper GI ? endoscopy was accomplished wi out ? difficulty. The patient tho ated the [...] MAR Action Action Date Dose Rate Site diphenhydrAMINE (BENADRYL) Given 02/06/2013 11:15 AM EDT 25 mg injection ONCE PRN, Starting on Mon02/06/13 at 1115, Until Mon02/06/13 at 1857, Itching, Intra-Operative (Intra-Procedure), Routine fentaNYL 50mcg/mL injection Given 02/06/2013 11:43 AM EDT 50 mcg ONCE PRN, Starting on Mon02/06/13 at 1115, Until Mon02/06/13 at 1857, Pain, Intra-Operative (Intra-Procedure), Routine Given 02/06/2013 11:40 AM EDT 50 mcg Given 02/06/2013 11:19 AM EDT 50 mcg midazolam (VERSED) injection Given 02/06/2013 11:44 AM EDT 1 mg ONCE PRN, Starting on Mon02/06/13 at 1115, Until Mon02/06/13 at 1857, Sleep, Intra-Operative (Intra-Procedure), Routine Given 02/06/2013 11:40 AM EDT 1 mg Given 02/06/2013 11:19 AM EDT 1 mg documented in this encounter Active and Recently Administered Medications Times are shown in EDT. PRN Medication Order 02/04/2013 02/05/2013 02/06/2013 diphenhydrAMINE (BENADRYL) injection (CANCELED) 1115 (Given - Provider: Soraya Rosado RN) ONCE PRN, Starting Mon02/06/13 at 1115, Until Mon02/06/13 at 1857, Itching, [...] Routine documented in this encounter Care Teams Parcel Carrier Relationship Specialty Start Date End Date Vasyl Whittaker DO PCP - General 08/17/10 07/15/[address] [place] [address] documented as of this encounter
--- OUTSIDE RECORDS SUMMARY | 2022-05-13 01:47 | XMS_ITS | Encounter Summary ---
:1960 Author Organization [facility] [place] [place] [address] Care Team Providers Name Role Phone Vasyl Whittaker Primary Care Provider Reason for Visit Reason Comments GI Problem Encounter Details Date Type Department Care Team Description 06/28/2012 Office Visit Gastroenterology at [facility] Keyon Cantu Celiac sprue [facility] Joshua Gómez MD (Primary Dx) [place] [address] [facility] [phone] [place] [address] Social History Tobacco Use Types Packs/Day Years Used Date Never Smoker Smokeless Tobacco: Never Used Sex Assigned at Date Recorded Not on file documented as of this encounter Last Filed Vital Signs Vital Sign Reading Time Taken Comments Blood Pressure 116/61 06/28/2012 2:29 PM EDT Pulse 70 06/28/2012 2:29 PM EDT Temperature - - Respiratory Rate - - Oxygen Saturation - - Inhaled Oxygen Concentration - - Weight 84.8 kg (187 lb) 06/28/2012 2:29 PM EDT Height 158.8 cm (5' 2.5) 06/28/2012 2:29 PM EDT Body Mass Index 33.66 06/28/2012 2:29 PM EDT documented in this encounter Progress Notes Keyon Cantu MD - 06/28/2012 3:46 PM EDT Problems: 1. Celiac disease. -Chronic dyspeptic symptoms. EGD, Dr. Figueroa, 2007 normal. Biopsies of duodenum normal. -Repeat EGD April 2010, Alondra. EGD: No scalloping but villi not well visualized. Pathology: Villous atrophy and inflammation consistent with celiac disease. -On a gluten-free diet since. 2. Chronic constipation. 3. Depression. 4. Status post C-sections in 1981 and 1984. 5. Status post cholecystectomy, 10/15/11. Cholecystitis but no stones. HPI: I am seeing Ai Morrison for the first time in the office. Formerly followed by Dr. Figueroa. She has chronic dyspeptic complaints. Had an EGD in 2007, which was normal with normal biopsies. It was repeated by me in 2009, and this demonstrated that she had celiac disease. She has had the serologic testing, but it was not done at [facility]. I do not have those records readily available. Since being on a celiac diet, her dyspeptic symptoms have resolved. She also had right upper quadrant pain and apparently had her gallbladder out this September. A lot of her right upper quadrant pain is dissipated. She tells me that she had cholecystitis but no stones. Currently her chronic complaint is of constipation and the fact that she has had abnormal liver function tests. She has been on MiraLAX in the past just for one week; it was not effective. She also has taken misoprostol in the past. No other GI complaints. I do not have her liver tests, but we can repeat them today. Rest of review of systems including cardiovascular, pulmonary, musculoskeletal, neurologic is negative. She was able to lose 48 pounds through [employer]. HEENT, , and skin are negative. Past medical history and social history are mentioned above in the problems. 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 She does not smoke. She drinks two times a month. She has been for three years. Two children who are healthy. Family history is notable for mother with colon cancer and some type of peritonitis. She had a colostomy at one point. Her father had heart disease and high blood pressure, and her mother had a cerebral aneurysm. Physical Exam: This is a pleasant woman in no acute distress. Lungs are clear to auscultation. Heart: Regular rhythm. Abdomen: Soft, nondistended, nontender. Extremities: Without edema, cyanosis, or clubbing. Impression: Patient with chronic dyspeptic complaints. Initially biopsies were normal, but then when repeated she has had evidence of celiac disease on biopsies. She is currently on a gluten-free diet. She has not seen a dietitian, but she maintains she is adamantly on it. She has chronic constipation as her only complaint. She was on MiraLAX but only for one week and at a low dose. I would suggest that she go back on this at higher dose. I gave her the following. Plan: 1. Will check laboratory tests today to look for response of celiac disease including CBC, chem profile, tTG, vitamin D, and iron levels. 2. Continue gluten-free diet. 3. Initiate vitamin D 1000 international units a day and calcium 1500 mg a day or greater. 4. Will check tTG to look for a response. 5. She requests thyroid testing. Her hair is thinning, and she realizes there is an association with thyroid and celiac disease so will check a TSH. 6. For constipation will place her on MiraLAX two glasses a day to titrate up or down depending on bowel frequency but only after several weeks of being on this dose. Will see her back in six months. documented in this encounter Plan of Treatment Upcoming Encounters Date Type Specialty Care Team Description 06/03/2022 Office Visit Rheumatology Benny Solano MD [facility] Dr Rg, [place] [id number] (Wo rk) documented as of this encounter Procedures Procedure Name Priority Date/Time Associated Comments Diagnosis DIFFERENTIAL, Routine 06/28/2012 4:04 PM Results for this AUTOMATED EDT procedure are i n the results section. IRON AND TIBC Routine 06/28/2012 4:04 PM Celiac sprue Results for this EDT procedure are i n the results section. TISSUE Routine 06/28/2012 4:04 PM Celiac sprue Results f or this TRANSGLUTAMINASE, IGA EDT proced ure are in the results section. VITAMIN D, 25-HYDROXY Routine 06/28/2012 4:04 PM Results for this EDT procedure are i n the results section. CBC (WITH DIFF) Routine 06/28/2012 4:04 PM Celiac sprue Result s for this EDT procedure are i n the results section. TSH Routine 06/28/2012 4:04 PM Celiac sprue Results f or this EDT procedure are i n the results section. COMPREHENSIVE Routine 06/28/2012 4:04 PM Celiac sprue Results for this METABOLIC PANEL EDT procedure ar e in (NON-FASTING) the results section. documented in this encounter Results VIT D TOTAL EVALUATION (06/28/2012 4:04 PM EDT) athologist Signature 25-OH Vit D 42 30 - 100 CERNER Total ng/mL MILLENNIUM Comment: Deficient <10 ng/mL Insufficient 10 to 29 ng/mL Sufficient 30 to 100 ng/mL Potential Intoxication >100 ng/mL According to the [place] National Osteoporosi s Foundation, Vitamin D concentrations >30 ng/mL are sufficient to protect bone health. ??The National Kidney Foundation has similarly stated that pat ients with Vitamin D concentrations <30ng/mL should be considered to be insu fficient or deficient. http://www.kidney.org/professionals/KDOQ I/guidelines_bone/Guide7.htm http://www.nof.org/professionals/clinica l-guidelines The IDS iSYS Vitamin D Immunoassay detec ts both 25-OH Vitamin D2 and 25-OH Vitamin D3, but only a total Vitamin D c oncentration is reported. Specimen Anatomical Collection Method Collection Time Receive d Time (Source) Location / / Volume Laterality Blood specimen 06/28/2012 4:04 PM 012 (specimen) EDT 12:09 PM EDT Resulting Agency Comment Spec In Lab Keyon Cantu MD CHEMISTRY ORDERABLES Performing Organization Address City/State/[place] [address] CERNER MILLENNIUM DIFFERENTIAL, AUTOMATED (06/28/2012 4:04 PM EDT) athologist Signature Neutrophils % 53.5 34.0 - CERNER 71.0 % MILLENNIUM Neutr Abs (ANC) 3.39 1.50 - CERNER 6.30 MILLENNIUM x10(3)/mcL Lymphocytes % 38.4 19.0 - CERNER 53.0 % MILLENNIUM Lymphocytes Abs 2.4 1.0 - 3.6 CERNER x10(3)/mcL MILLENNIUM Monocytes % 5.5 4.0 - 13.0 CERNER % MILLENNIUM Monocyte Abs 0.4 0.2 - 1.0 CERNER x10(3)/mcL MILLENNIUM Eosinophils % 1.9 0.0 - 7.0 CERNER % MILLENNIUM Eosinophils Abs 0.1 0.0 - 0.5 CERNER x10(3)/mcL MILLENNIUM Basophils % 0.5 0.0 - 2.0 CERNER % MILLENNIUM Basophils Abs 0.0 0.0 - 0.2 CERNER x10(3)/mcL MILLENNIUM Immature Gran % 0.20 0.00 - CERNER 0.66 % MILLENNIUM Comment: Immature granulocytes(IG's)percentage an d absolute count will include metamyelocytes, myelocytes, and promyelo cytes. Blood smears from CBCs yielding IG's will be scanned manually for concor dance. If this scan disagrees with the automated IG or if promyelocytes are not ed, a manual differential will be performed. Anisha Gran Abs 0.01 0.00 - 0.05 x10(3)/mcL CER NER MILLENNIUM Specimen Anatomical Collection Method Collection Time Receive d Time (Source) Location / / Volume Laterality Blood specimen 06/28/2012 4:04 PM 012 4:09 (specimen) EDT PM EDT Keyon Cantu MD HEMATOLOGY ORDERABLES Performing Organization Address City/State/[place] [address] CERNER MILLENNIUM Tissue transglutaminase, IgA (06/28/2012 4:04 PM EDT) athologist Signature TTG IgA Ab <4.0 <=3.9 u/ml CERNER MILLENNIUM Comment: Result Interpretation: Negative: ?<4 U/mL Weak Positive: ??4-10 U/mL Positive: ?>10 U/mL Specimen Anatomical Collection Method Collection Time Receive d Time (Source) Location / / Volume Laterality Blood specimen 06/28/2012 4:04 PM 012 8:28 (specimen) EDT AM EDT Resulting Agency Comment Spec In Lab Keyon Cantu MD IMMUNOLOGY ORDERABLES Performing Organization Address City/[facility]/ZIP [facility] Phon e Number [address] CERNER MILLENNIUM (ABNORMAL) Iron and TIBC (06/28/2012 4:04 PM EDT) athologist Signature Iron 43 30 - 150 CERNER mcg/dL MILLENNIUM TIBC 284 250 - 450 CERNER mcg/dL MILLENNIUM Iron Saturation 15 (L) 20 - 50 % CERNER MILLENNIUM Specimen Anatomical Collection Method Collection Time Receive d Time (Source) Location / / Volume Laterality Blood specimen 06/28/2012 4:04 PM 012 4:09 (specimen) EDT PM EDT Resulting Agency Comment Spec In Lab Keyon Cantu MD CHEMISTRY ORDERABLES Performing Organization Address City/[facility]/ZIP Code Phon e Number [address] CERNER MILLENNIUM TSH (06/28/2012 4:04 PM EDT) athologist Signature TSH 3.02 0.27 - 4.20 CERNER mcIU/mL MILLENNIUM Specimen Anatomical Collection Method Collection Time Receive d Time (Source) Location / / Volume Laterality Blood specimen 06/28/2012 4:04 PM 012 4:09 (specimen) EDT PM EDT Resulting Agency Comment Spec In Lab Keyon Cantu MD CHEMISTRY ORDERABLES Performing Organization Address City/[facility]/ZIP [facility] [place] [address] CERNER MILLENNIUM (ABNORMAL) Comprehensive metabolic panel (non-fasting) (06/28/2012 4:04 PM EDT) athologist Signature Glucose Lvl 88 60 - 199 CERNER mg/dL MILLENNIUM Comment: Diabetes: >=200 mg/dL plus symp toms BUN 14 8 - 18 mg/dL CERNER MILLENNIUM Creatinine 0.87 0.70 - 1.20 mg/dL CERNER MILL ENNIUM Comment: Please note that the pediatric reference intervals supplied above were not validated at [facility]. Results from pediatri c patients should be interpreted in conjunction to the patient's age, height and muscle mass. Sodium 139 135 - 145 mmol/L CERNER KATHY NIUM Potassium 4.0 3.5 - 5.0 mmol/L CERNER KATHY NIUM Comment: Please note: ??Patients with WBC >100,00 0 may have falsely elevated Potassium levels. ??For accurate Potassium quantif ication in these patients send serum separator tube (gold top) for subsequent determinations. ??Contact the Clinical Chemistry Laboratory if there are any qu estions. Chloride 102 98 - 107 mmol/L CERNER MILLENN IUM CO2 27 22 - 31 mmol/L CERNER MILLENNI UM Anion Gap 10 5 - 15 mmol/L CERNER MILLENNIU M Calcium 8.9 8.5 - 10.5 mg/dL CERNER KATHY NIUM Total Protein 7.4 6.4 - 8.3 gm/dL CERNER MIL LENNIUM Albumin 4.3 3.2 - 5.2 gm/dL CERNER MILLENN IUM AST 21 0 - 30 unit/L CERNER MILLENNIU M ALT 11 0 - 30 unit/L CERNER MILLENNIU M Alk Phos 105 (H) 40 - 104 unit/L CERNER MILLENN IUM Total Bilirubin 0.2 0.2 - 1.3 mg/dL CERNER M ILLENNIUM Bili, Direct 0.1 0.0 - 0.3 mg/dL CERNER MILL ENNIUM Estimated GFR >60 >=60 CERNER MILLENNIU M Comment: The National Kidney Disease Education Pr ogram (NKDEP) has recommended all laboratories report estimated GFR (eGFR) along with plasma creatinine measurements to assist you with recognit ion of early kidney disease. Caveats: ??Plasma creatinine should be a t steady-state (unchanged within the past week). For patient s multiply eGFR by 1.2. The MDRD equation was developed using patients be tween the ages of 18 and 70 years. ?? The MDRD equation has not been validated for patients < 18 years of age and should not be used to assess renal function in the pediatric population. ??The MDRD eGFR equation will also overestimate the true GFR of patients above the age of 70. ??This overestimation is variable bu t increases with age. At present, NKDEP does NOT recommend i ng the MDRD equation for drug dosing purposes and pharmacists should continue to use their current dosing methods. In addition, numerical eGFR values great er than 60 ml/min/1.73 square meters should be treated as > 60, and not an ex act number due to greater inaccuracies at these higher values. Per NKDEP, they classify normal renal function as any GFR >60ml/min/1.73 square meters; chronic kidney disease wh en GFR <60, and renal failure when GFR <15. ??This calculation may not be valid for patients with atypical muscle mass (very lean or obese), acute renal failur e, and in patients with diabetic kidney disease. References: http://nkdep.nih.gov/resources/NKDEP_Sug gestn4Labs_0606_508.pdf http://www.kidney.org/professionals/kls/ pdf/faq_gfr.pdf Darnell Calles, Gia NA, Rob AK, Jerry TS, Mary AD, Aurelio ALY. Relative performance of the MDRD and CKD-EPI equa tions for estimating glomerular filtration rate among patients with vari ed clinical presentations. Clin J Am Soc Nephrol;6:1963-72. Specimen Anatomical Collection Method Collection Time Receive d Time (Source) Location / / Volume Laterality Blood specimen 06/28/2012 4:04 PM 012 4:09 (specimen) EDT PM EDT Resulting Agency Comment Spec In Lab Keyon Cantu MD CHEMISTRY ORDERABLES Performing Organization Address City/State/ZIP Code Phon e Number [place] [phone] CERNER MILLENNIUM (ABNORMAL) CBC (with Diff) (06/28/2012 4:04 PM EDT) athologist Signature WBC 6.3 4.0 - 10.0 CERNER x10(3)/mcL MILLENNIUM RBC 3.84 (L) 3.93 - CERNER 5.22 MILLENNIUM x10(6)/mcL Hemoglobin 12.5 11.2 - CERNER 15.7 gm/dL MILLENNIUM Hematocrit 38.1 34.0 - CERNER 45.0 % MILLENNIUM MCV 99.2 (H) 79.0 - CERNER 94.0 fL MILLENNIUM MCH 32.6 (H) 26.6 - CERNER 32.2 pg MILLENNIUM MCHC 32.8 32.0 - CERNER 36.5 gm/dL MILLENNIUM Platelets 275 145 - 370 CERNER x10(3)/mcL MILLENNIUM RDWSD 50.6 (H) 35.0 - CERNER 46.0 fL MILLENNIUM RDWCV 14.2 10.9 - CERNER 14.4 % MILLENNIUM MPV 10.7 9.0 - 12.0 CERNER fL MILLENNIUM Specimen Anatomical Collection Method Collection Time Receive d Time (Source) Location / / Volume Laterality Blood specimen 06/28/2012 4:04 PM 012 4:09 (specimen) EDT PM EDT Resulting Agency Comment Spec In Lab Keyon Cantu MD HEMATOLOGY ORDERABLES Performing Organization Address City/State/[place] [address] [facility] documented in this encounter Visit Diagnoses Diagnosis Celiac sprue - Primary Celiac disease documented in this encounter Care Teams Keyboard Specialist Relationship Specialty Start Date End Date Vasyl Whittaker DO PCP - General 08/17/10 07/15/[address] [place] [address] documented as of this encounter
--- OUTSIDE RECORDS SUMMARY | 2022-05-13 01:49 | XMS_ITS | Encounter Summary ---
:1960 Demographics Home Phone Work Phone Preferred Language Unknown Marital Status Rastafarian Affiliation Unknown Race White Ethnic Group Unknown Author Organization [facility] Address [address] [place] [address] Care Team Providers Name Role Phone Vasyl Whittaker DO Primary Care Provider Encounter Details Date Type Department Care Team Description 10/31/2021 Lab Requisition [facility] Outr Resulting Lab, Pathology & Laboratory Provider General acute hospital [address], [place] [id number] Social History Tobacco Use Types Packs/Day Years Used Date Never Assessed Sex Assigned at Date Recorded Not on file documented as of this encounter Plan of Treatment Not on filedocumented as of this encounter Procedures Procedure Name Priority Date/Time Associated Comments Diagnosis QUANTIFERON MITOGEN Today 10/29/2021 13:15 (PERFORMABLE) EST QUANTIFERON TB2 Today 10/29/2021 13:15 (PERFORMABLE) EST QUANTIFERON TB1 Today 10/29/2021 13:15 (PERFORMABLE) EST QUANTIFERON NIL Today 10/29/2021 13:15 (PERFORMABLE) EST QUANTIFERON Today 10/29/2021 13:15 Results for this INTERPRETATION EST procedure are in (PERFORMABLE) the results section. QUANTIFERON TB GOLD Routine 10/29/2021 13:15 Resu lts for this PLUS EST procedure are i n the results section. documented in this encounter Results QUANTIFERON INTERPRETATION (PERFORMABLE) (10/29/2021 13:15 EST) Quantiferon NegativeComment: No Negative [facility] Interpretation interferon-gamma [facility] response to M. SERVICES tuberculosis antigens was detected. ??Infection with M. tuberculosis is unlikely. A single negative result does not exclude infection with M. tuberculosis. ??In patients at high risk for M. tuberculosis infection, a second test should be considered. TB1 Ag minus Nil 0.00 IU/ml [facility] TB2 Ag minus Nil 0.01 IU/mL [facility] Specimen Blood - Venous blood (substance) Narrative [facility] - 11/01/2021 12:28 EST Results were obtained with the Qiagen QuantiFERON-TB Gold Plus CLIA. New platform in use 06/02/2021 Performing Organization Address City/[facility]/ZIP Code Phon e Number [facility] [address] [place] [address] SERVICES QUANTIFERON MITOGEN (PERFORMABLE) (10/29/2021 13:15 EST) Specimen Blood - Venous blood (substance) Performing Organization Address City/[facility]/ZIP Code Phon e Number [facility] [address] [place] [address] SERVICES QUANTIFERON TB2 (PERFORMABLE) (10/29/2021 13:15 EST) Specimen Blood - Venous blood (substance) Performing Organization Address [facility]/ZIP Code Phon e Number [facility] [address] [place] [address] SERVICES QUANTIFERON TB1 (PERFORMABLE) (10/29/2021 13:15 EST) Specimen Blood - Venous blood (substance) Performing Organization Address City/[facility]/ZIP Code Phon e Number [facility] [address] [place] [address] SERVICES QUANTIFERON NIL (PERFORMABLE) (10/29/2021 13:15 EST) Specimen Blood - Venous blood (substance) Performing Organization Address City/[facility]/ZIP Code Phon e Number [facility] [address] [place] [address] SERVICES documented in this encounter Visit Diagnoses Not on filedocumented in this encounter Additional Health Concerns Infection Onset Date Last Indicated Resolved Time COVID-19 02/16/2022 02/16/2022 03/08/2022 22:15 EDT documented as of this encounter Care Teams Punch Press Setter Relationship Specialty Start Date End Date Vasyl Whittaker DO PCP - General 12/23/10 [address] [place] [address] documented as of this encounter
--- OUTSIDE RECORDS SUMMARY | 2022-05-13 01:49 | XMS_ITS | Encounter Summary ---
:1960 Demographics Home Phone Work Phone Preferred Language Unknown Marital Status Caodaism Affiliation Unknown Race White Ethnic Group Unknown Author Organization [facility] Address [address] [place] [address] Care Team Providers Name Role Phone Vasyl Whittaker DO Primary Care Provider Encounter Details Date Type Department Care Team Description 06/18/2018 Results Only [facility] Marychuy Gardiner, [address] [place], [place] [phone] (Wo rk) Social History Tobacco Use Types Packs/Day Years Used Date Never Assessed Sex Assigned at Date Recorded Not on file documented as of this encounter Plan of Treatment Not on filedocumented as of this encounter Procedures Procedure Name Priority Date/Time Associated Diagnosis Comme nts SURGICAL PATHOLOGY Routine 06/18/2018 17:58 Resul ts for this EDT procedure are i n the results section. documented in this encounter Results SURGICAL PATHOLOGY (06/18/2018 17:58 EDT) Pathology Report: SURGICAL PATHOLOGY REPORT [facility] Reports generated via electronic interface contain dior ginal data; LABORATORY however they are lacking the format of the original re port. SERVICES Caution should be taken when reading/interpreting unfo rmatted reports. Name: ? SHELTON CATES ? Accession #: ? [id number] ? : ? 1960 (Age: [age]) ??F ? Collect Date: ? 06/18/2018 ? Location: ? [facility] ? Receive Date: ? 06/18/20 18 ? Provider: MARYCHUY GARDINER DO Copy to: CHASITY KEITH MD ? Final Pathologic Diagnosis: SALIVARY GLAND, MINOR, LOWER LIP, BIOPSY: - Salivary gland with lympho cytic aggregates, consistent with Sjogren's syndrome (Focus score of 4). See comment. Comment: The findings are that of a serous mucino us minor salivary gland with 4 foci of lymphocytic aggregates with greater than 50 lymphocytes and each aggregate. This meets the quantification criteria for Sjogren's syndro me on salivary gland biopsy. Dr. Quigley 06/21/2018 7:02 AM Document reviewed and electronically signed by: LILIYA MCNAMARA MD Report ??Date: 06/21/2018 09:15 By the signature above, the attending physician certif ies that he/she has personally conducted a gross and/or microscopic examin ation of the described specimens and rendered or confirmed the above diagnosi s. Specimen(s) Received: Minor salivary glands lower lip Clinical History: Dry mouth, possible Sjogren's Gross Description: ? Received in formalin labelled with proper patient identification (initials G, K) and minor salivary glands lower lip are five márquez-white tissues (0.4 x 0.3 x 0.2 cm to 0.2 x 0.1 x 0.1 cm). Entirely submitte d in 1 and 2. Jaime Helton 06/19/2018 8:01 AM End of Report Specimen Performing Organization Address City/State/ZIP Code Phon e Number [facility] [address] [place] [address] SERVICES documented in this encounter Visit Diagnoses Not on filedocumented in this encounter Care Teams Design/Animation Instructor Relationship Specialty Start Date End Date Vasyl Whittaker, PCP - General 12/23/10 [address] [place] [address] documented as of this encounter
--- OUTSIDE RECORDS SUMMARY | 2022-05-13 01:49 | XMS_ITS | Encounter Summary ---
:1960 Demographics Home Phone Work Phone Preferred Language Unknown Marital Status Caodaism Affiliation Unknown Race White Ethnic Group Unknown Author Organization [facility] Address [address] [place] [address] Care Team Providers Name Role Phone Vasyl Whittaker DO Primary Care Provider Encounter Details Date Type Department Care Team Description 10/29/2021 Lab Requisition [facility] Outr Resulting Lab, Pathology & Laboratory Provider [facility] [address], [place] [id number] Social History Tobacco Use Types Packs/Day Years Used Date Never Assessed Sex Assigned at Date Recorded Not on file documented as of this encounter Plan of Treatment Not on filedocumented as of this encounter Procedures Procedure Name Priority Date/Time Associated Diagnosis Comme nts HOLD SST Today 10/29/2021 13:15 Results for this EST procedure are i n the results section. HEPATITIS C AB W Today 10/29/2021 13:15 Results for this REFLEX TO HCV RNA EST procedure are in BY PCR the results section. HEPATITIS B CORE Today 10/29/2021 13:15 Results for this ANTIBODY (TOTAL) EST procedure a re in the results section. HEPATITIS B SURFACE Today 10/29/2021 13:15 Resu lts for this ANTIBODY EST procedure are i n the results section. HEPATITIS B SURFACE Today 10/29/2021 13:15 Resu lts for this ANTIGEN EST procedure are i n the results section. documented in this encounter Results HOLD SST (10/29/2021 13:15 EST) Pathologist Sig nature Hold Hold [facility] SERVICES Specimen Blood - Venous blood (substance) Performing Organization Address City/State/ZIP Code Phon e Number [facility] [address] [place] [address] SERVICES HEPATITIS B SURFACE ANTIBODY (10/29/2021 13:15 EST) Hep B Surface Ab, <3.1 See Note [facility] Quantitative Comment: mIU/mL [facility] Reference Range for Hep B Surface Ab, Quant: SERVICES Positive: >= 10.0 mIU/mL Negative: ??< 10.0 mIU/mL Patient is presumed to not be immune to infection with Hepatitis B Virus. Hep B Surface Ab, Negative See Note [facility] Qualitative Comment: [facility] Reference Range for Hep B Surface Ab, Qual: SERVICES Unvaccinated: ??Negative Vaccinated: ??Positive Specimen Blood - Venous blood (substance) Performing Organization Address City/[facility]/ZIP Code Phon e Number [facility] [address] [place] [address] SERVICES HEPATITIS B CORE ANTIBODY (TOTAL) (10/29/2021 13:15 EST) Pathologist Sig nature Hepatitis B Core Ab, Negative Negative [facility] Total LABORATORY SERVICES Specimen Blood - Venous blood (substance) Performing Organization Address [facility]/ZIP Code Phon e Number [facility] [address] [place] [address] SERVICES HEPATITIS B SURFACE ANTIGEN (10/29/2021 13:15 EST) Pathologist Sig nature Hep B Surface Ag Negative Negative [facility] SERVICES Specimen Blood - Venous blood (substance) Performing Organization Address [facility]/ZIP Code Phon e Number [facility] [address] [place] [address] SERVICES HEPATITIS C AB W REFLEX TO HCV RNA BY PCR (10/29/2021 13:15 EST) Pathologist Sig nature Hep C Antibody Negative Negative [facility] ORY SERVICES Specimen Blood - Venous blood (substance) Performing Organization Address [facility]/ZIP [facility] Phon e Number [facility] [address] [place] [address] SERVICES documented in this encounter Visit Diagnoses Not on filedocumented in this encounter Additional Health Concerns Infection Onset Date Last Indicated Resolved Time COVID-19 02/16/2022 02/16/2022 03/08/2022 22:15 EDT documented as of this encounter Care Teams Draw Frame Operator Relationship Specialty Start Date End Date Vasyl Whittaker DO PCP - General 12/23/10 [address] [place] [id number] documented as of this encounter
--- OUTSIDE RECORDS SUMMARY | 2022-05-13 01:49 | XMS_ITS | Encounter Summary ---
:1960 Demographics Home Phone Work Phone Preferred Language Unknown Marital Status Congregation Affiliation Unknown Race White Ethnic Group Unknown Author Organization [facility] Address [address] [place] [address] Care Team Providers Name Role Phone Vasyl Whittaker DO Primary Care Provider Encounter Details Date Type Department Care Team Description 10/29/2021 Lab Requisition [facility] Outr Resulting Lab, Pathology & Laboratory Provider [facility] [address] [place] [address] Social History Tobacco Use Types Packs/Day Years Used Date Never Assessed Sex Assigned at Date Recorded Not on file documented as of this encounter Plan of Treatment Not on filedocumented as of this encounter Procedures Procedure Name Priority Date/Time Associated Comments Diagnosis HIV 1/2 ANTIGEN AND Routine 10/29/2021 13:15 Resu lts for this ANTIBODY, 4TH EST procedure are in GENERATION the results section. documented in this encounter Results HIV 1/2 ANTIGEN AND ANTIBODY, 4TH GENERATION (10/29/2021 13:15 EST) HIV 1 and 2 NegativeComment: If Negative [facility] Antibody/p24 acute HIV-1 LABORATORY Antigen, 4th infection is SERVICES Generation suspected in a high risk patient, submit plasma specimen for HIV-1 RNA quantitation test. Specimen Blood - Venous blood (substance) Narrative [facility] LABOR[facility]ORY SERVICES - 11/01/2021 11:39 EST Fourth Generation assay performed on the Siemens RF Biocidicsaur XPT. Performing Organization Address City/State/ZIP Code Phon e Number [facility] [address] [place] [address] SERVICES documented in this encounter Visit Diagnoses Not on filedocumented in this encounter Additional Health Concerns Infection Onset Date Last Indicated Resolved Time COVID-19 02/16/2022 02/16/2022 03/08/2022 22:15 EDT documented as of this encounter Care Teams Rehab Office Coordinator Relationship Specialty Start Date End Date Vasyl Whittaker, PCP - General 12/23/10 [address] [facility] [place] [address] documented as of this encounter
--- OUTSIDE RECORDS SUMMARY | 2022-05-13 01:49 | XMS_ITS | Encounter Summary ---
:1960 Demographics Home Phone Work Phone Preferred Language Unknown Marital Status Mormon Affiliation Unknown Race White Ethnic Group Unknown Author Organization [facility] Address [address] [place] [address] Care Team Providers Name Role Phone Vasyl Whittaker DO Primary Care Provider Encounter Details Date Type Department Care Team Description 06/24/2021 Lab Requisition [facility] Outr Resulting Lab, Pathology & Laboratory Provider [facility] [address] [place], [place] [id number] Social History Tobacco Use Types Packs/Day Years Used Date Never Assessed Sex Assigned at Date Recorded Not on file documented as of this encounter Plan of Treatment Not on filedocumented as of this encounter Procedures Procedure Name Priority Date/Time Associated Comments Diagnosis HOLD SST Today 06/23/2021 15:51 Results for this EDT procedure are i n the results section. HOLD SST Today 06/23/2021 15:51 Results for this EDT procedure are i n the results section. ANTI DNA (DOUBLE Today 06/23/2021 15:51 Results for this STRANDED) EDT procedure are i n the results section. RHEUMATOID FACTOR Today 06/23/2021 15:51 Result s for this EDT procedure are i n the results section. C3 COMPLEMENT Today 06/23/2021 15:51 Results fo r this EDT procedure are i n the results section. C4 COMPLEMENT Today 06/23/2021 15:51 Results fo r this EDT procedure are i n the results section. documented in this encounter Results HOLD SST (06/23/2021 15:51 EDT) Pathologist Sig nature Hold Hold [facility] LABORATOR Y SERVICES Specimen Blood - Venous blood (substance) Performing Organization Address City/State/ZIP Code Phon e Number [facility] [address] [place] [address] SERVICES HOLD SST (06/23/2021 15:51 EDT) Pathologist Sig nature Hold Hold [facility] Y SERVICES Specimen Blood - Venous blood (substance) Performing Organization Address [facility]/ZIP Code Phon e Number [facility] [address] [place] [address] SERVICES RHEUMATOID FACTOR (06/23/2021 15:51 EDT) Pathologist Sig nature Rheumatoid Factor <8.6 <12.0 IU/mL [facility] SERVICES Specimen Blood - Venous blood (substance) Performing Organization Address [facility] Phon e Number [facility] [address] [place] [address] SERVICES ANTI DNA (DOUBLE STRANDED) (06/23/2021 15:51 EDT) Anti-DNA (Double <12.3 <30.0 IU/mL [facility] Stranded) Comment: LABORATORY ? SERV ICES ? Negative: ??<30.0 IU/mL ? Borderline Positive: ??30.0 - 75.0 IU/mL ? Positive: ??>75.0 IU/mL Results were obtained with halima jenkins [employer] Lite dsDNA SC TABATHA assay on the [email or web address] DSX. Specimen Blood - Venous blood (substance) Performing Organization Address [facility]/ZIP Code Phon e Number [facility] [address] [place] [address] SERVICES C3 COMPLEMENT (06/23/2021 15:51 EDT) Pathologist Sig nature C3 Complement 117 81 - 157 mg/dL [facility] SERVICES Specimen Blood - Venous blood (substance) Performing Organization Address [facility]/ZIP [facility] Phon e Number [facility] [address] [place] [address] SERVICES C4 COMPLEMENT (06/23/2021 15:51 EDT) Pathologist Sig nature C4 Complement 24 13 - 39 mg/dL [facility] LABORAT ORY SERVICES Specimen Blood - Venous blood (substance) Performing Organization Address [facility]/ZIP [facility] Phon e Number [facility] [address] [place] [address] SERVICES documented in this encounter Visit Diagnoses Not on filedocumented in this encounter Additional Health Concerns Infection Onset Date Last Indicated Resolved Time COVID-19 02/16/2022 02/16/2022 03/08/2022 22:15 EDT documented as of this encounter Care Teams Cook Jelly Relationship Specialty Start Date End Date Vasyl Whittaker DO PCP - General 12/23/[address] [place] [address] documented as of this encounter
--- OUTSIDE RECORDS SUMMARY | 2022-05-13 01:49 | XMS_ITS | Encounter Summary ---
:1960 Demographics Home Phone Work Phone Preferred Language Unknown Marital Status Nondenominational Affiliation Unknown Race White Ethnic Group Unknown Author Organization [facility] Address [address] [place] [address] Care Team Providers Name Role Phone Vasyl Whittaker DO Primary Care Provider Encounter Details Date Type Department Care Team Description 10/29/2021 Lab Requisition [facility] Outr Resulting Lab, Pathology & Laboratory Provider [facility] [address] [place], [place] [id number] Social History Tobacco Use Types Packs/Day Years Used Date Never Assessed Sex Assigned at Date Recorded Not on file documented as of this encounter Plan of Treatment Not on filedocumented as of this encounter Procedures Procedure Name Priority Date/Time Associated Comments Diagnosis URINE MONOCLONAL Today 10/29/2021 13:15 Results for this PROTEIN STUDY (UPEP EST procedur e are in WITH IMMUNOTYPING) the [facility] PERFORMABLE section. PROTEIN, TOTAL, Today 10/29/2021 13:15 RANDOM, URINE EST URINE MONOCLONAL Routine 10/29/2021 13:15 Results for this PROTEIN STUDY (UPEP EST procedur e are in WITH IMMUNOTYPING) the [facility] section. documented in this encounter Results URINE MONOCLONAL PROTEIN STUDY (UPEP WITH IMMUNOTYPING) PERFORMABLE (10/29/2021 13:15 EST) Albumin, Urine % 16.2 N/A % [facility] CENTER LABORATORY SERVICES Globulins, Urine 83.8 N/A % [facility] MEDICAL % CENTER LABORATORY SERVICES UPEP Comment See CommentComment: [facility] Electrophoresis CENTER LABORATORY screening performed; SERVICES Immunotyping to follow. See scanned/supplementary report. Immunotyping, Current [facility] Urine Interpretation: CENTER LABORATORY Negative for free SERVICES monoclonal light chains. Reviewed by: Jaime Milan MD 11/01/2021 1347 Total Protein, <5 See Note [facility] MEDICAL Urine Comment: mg/dL CENTER LABORATORY NOTE: SERVICES Reference range has not been established for total protein concentration in random urine specimens. Specimen Urine - Urine (substance) Narrative This result has an attachment that is no t available. Performing Organization Address City/State/ZIP Code Phon e Number [facility] [address] [place] [address] SERVICES PROTEIN, TOTAL, RANDOM, URINE (10/29/2021 13:15 EST) Specimen Urine - Urine (substance) Performing Organization Address City/State/ZIP Code Phon e Number [facility] [address] [place] [address] SERVICES documented in this encounter Visit Diagnoses Not on filedocumented in this encounter Additional Health Concerns Infection Onset Date Last Indicated Resolved Time COVID-19 02/16/2022 02/16/2022 03/08/2022 22:15 EDT documented as of this encounter Care Teams Managing Member Relationship Specialty Start Date End Date Vasyl Whittaker DO PCP - General 12/23/[address] [place] [address] documented as of this encounter
--- OUTSIDE RECORDS SUMMARY | 2022-05-13 01:49 | XMS_ITS | Encounter Summary ---
:1960 Demographics Home Phone Work Phone Preferred Language Unknown Marital Status Protestant Affiliation Unknown Race White Ethnic Group Unknown Author Organization [facility] Address [address] [place] [address] Care Team Providers Name Role Phone Unavailable Primary Care Provider Unavailable Encounter Details Date Type Department Care Team Description 04/19/2006 Results Only [facility] - Marisa Conde MD conversion [address] [place] [phone] Social History Tobacco Use Types Packs/Day Years Used Date Never Assessed Sex Assigned at Date Recorded Not on file documented as of this encounter Plan of Treatment Not on filedocumented as of this encounter Procedures Procedure Name Priority Date/Time Associated Diagnosis Comme nts SURGICAL PATHOLOGY Routine 04/19/2006 0:00 EDT Re sults for this procedure are i n the results section. documented in this encounter Results SURGICAL PATHOLOGY (04/19/2006 0:00 EDT) Pathology Report: SURGICAL PATHOLOGY REPORT TRAN CHEN Reports generated via electronic interface contain dior ginal data; LAB however they are lacking the format of the original re port. Caution should be taken when reading/interpreting unfo rmatted reports. Name: ? SHELTON AMBROSE ? Accession #: ? [id number] ? : ? 1960 (Age: 46) ??F ? Collect Date: ? 04/19/2006 ? Location: ? [facility] ? Receive Date: ? 006 ? Provider: DIMITRIS DENIS MD Copy to: MARISA WEBB MD ? Final Pathologic Diagnosis: ? Colon, left transverse, polyp, biopsy: 1. ?Tubular adenoma. 2. ?No high grade dysplasia or carcinoma identified. Document reviewed and electronically signed by: ARELY العلي MD Report ??Date: 04/23/2006 23:34 By the signature above, the attending physician certif ies that he/she has personally conducted a gross and/or microscopic examin ation of the described specimens and rendered or confirmed the above diagnosi s. Specimen(s) Received: ? Bx L transverse colon polyp Clinical History: ? F/H colon Ca; constip ation; ??tiny hyperplastic polyp L transverse colon Gross Description: ? Received in Hollande' s fixative labeled Ambrose and biopsy left transverse colon polyp is a single 0.2 x 0.1 x 0.1 cm polypoid f ragment of tissue. The specimen is submitted intact in one cassette. ??(Dr. Renetta lopez)/[facility] End of Report Specimen Performing Organization Address City/State/ZIP Code Phon e Number [facility] [address] [place] [address] SERVICES TRAN [facility] [address] [place] [address] documented in this encounter Visit Diagnoses Not on filedocumented in this encounter
--- OUTSIDE RECORDS SUMMARY | 2022-05-13 01:49 | XMS_ITS | Encounter Summary ---
:1960 Demographics Home Phone Work Phone Preferred Language Unknown Marital Status Lutheran Affiliation Unknown Race White Ethnic Group Unknown Author Organization [facility] Address [address] [place] [address] Care Team Providers Name Role Phone Vasyl Whittaker DO Primary Care Provider Encounter Details Date Type Department Care Team Description 08/24/2016 Results Only [facility]- Ana Maria Abdullahi, [address] [place] [address] (Wo rk) Social History Tobacco Use Types Packs/Day Years Used Date Never Assessed Sex Assigned at Date Recorded Not on file documented as of this encounter Plan of Treatment Not on filedocumented as of this encounter Procedures Procedure Name Priority Date/Time Associated Diagnosis Comme nts PAP TEST- RESULT Routine 08/24/2016 0:00 EST Resu lts for this ONLY procedure are i n the results section. documented in this encounter Results PAP TEST- RESULT ONLY (08/24/2016 0:00 EST) Pathology Report: CYTOPATHOLOGY REPORT [facility] Reports generated via electronic interface contain dior ginal data; SERVICES however they are lacking the format of the original re port. Caution should be taken when reading/interpreting unfo rmatted reports. Name: ? SHELTON CATES ? Accession #: ? [id number] ? : ? 1960 (Age: [age]) ??F ?Collect Da te: ? 08/24/2016 ? Location: ? [facility] ? Receive Date: ? 08/25/20 16 ? Provider: ANA MARIA GRIDER MD Copy to: ? Final Report SPECIMEN ADEQUACY ? Satisfactory for Evaluation - transformation zone component absent GENERAL CATEGORIZATION ? Negative for Intraepithelial Lesion or Malignan cy ?? Menstrual/ Status: ??Post Menopausal Hormonal/Contraceptive status: None Treatment History: Yes: Oophorectomy 2013 Specimen/Source: ??Pap Test, Cervix, ThinPrep Imaging System with manual evaluation Document reviewed and electronically signed by: ? JOSE JUAN Dominguez(ASCP) ? Report ??Date: 08/30/2016 10:39 HPV with Pap Test ? Date Ordered: ? 08/30/2016 ? Status: ?? Signed Out ?Date Complete: ? 08/31/2016 ? By: ??Sy stem Interface ? Date Reported: ? 08/31/2016 ? Interpretation RESULT: Negative for HPV. No E6 or E7 mRNA is detected from HPV types 16,18,31,3 3,35, 39,45,51,52,56,58,59,66, and 68 by office nurse media tenzin amplification. Comments Document reviewed and electronically signed by: ? System Interface ? Report date: 08/31/2016 By the signature above, the attending physician certif ies that he/she has personally conducted a gross and/or microscopic examin ation of the described specimens and rendered or confirmed the above diagnosi s. End of Report Specimen Performing Organization Address City/State/ZIP Code Phon e Number [facility] [address] [place] [id number] SERVICES documented in this encounter Visit Diagnoses Not on filedocumented in this encounter Care Teams County Auditor Relationship Specialty Start Date End Date Vasyl Whittaker, PCP - General 12/23/10 [address] [facility] [place] [address] documented as of this encounter
--- OUTSIDE RECORDS SUMMARY | 2022-05-13 01:49 | XMS_ITS | Encounter Summary ---
:1960 Demographics Home Phone Work Phone Preferred Language Unknown Marital Status Baptist Affiliation Unknown Race White Ethnic Group Unknown Author Organization [facility] Address [address] [place] [address] Care Team Providers Name Role Phone Vasyl Whittaker DO Primary Care Provider Encounter Details Date Type Department Care Team Description 03/07/2013 Results Only [facility] Marisa Vega MD Laboratory Services - [address] [place] [id number] [address] [place] [address] [phone] Social History Tobacco Use Types Packs/Day Years Used Date Never Assessed Sex Assigned at Date Recorded Not on file documented as of this encounter Plan of Treatment Not on filedocumented as of this encounter Procedures Procedure Name Priority Date/Time Associated Diagnosis Comme [facility] SURGICAL PATHOLOGY Routine 03/07/2013 15:12 Resul ts for this EDT procedure are i n the results section. documented in this encounter Results SURGICAL PATHOLOGY (03/07/2013 15:12 EDT) Pathology Report: SURGICAL PATHOLOGY REPORT TRAN CHEN Reports generated via electronic interface contain dior ginal data; LAB however they are lacking the format of the original re port. Caution should be taken when reading/interpreting unfo rmatted reports. Name: ? SHELTON CATES ? Accession #: ? [id number] ? : ? 1960 (Age: 53) ??F ? Collect Date: ? 03/07/2013 ? Location: ? [facility] ? Receive Date: ? 03/08/20 13 ? Provider: MARISA VEGA MD Copy to: VASYL WHITTAKER DO ? 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 - ??Fallopian tube with no specific pathologic feature s. ? Document reviewed and electronically signed by: CLAUDIA BURNETT MD Report ??Date: 03/12/2013 16:07 By the signature above, the attending physician certif ies that he/she has personally conducted a gross and/or microscopic examin ation of the described specimens and rendered or confirmed the above diagnosi s. Specimen(s) Received: Right ovary Clinical History: RLQ pain, 1.3 cm ovarian cyst Gross Description: ? Received in formalin labelled with proper patient identification (initials G., K.) A-right ovary is a right ovary with attached previously disrupted cystic structure (1.5 x 1.5 x 1.5 cm). T he outer surface is granular. The cyst is multiloculated and contai ns no fluid. The inner lining is slightly rough with moderate adhesions. The cyst wall is 0.2 cm in thickness. The attached ovary and fallopian tube have unremarkable cut surface. Represen tative sections are submitted as [address] Matthew Garzon 03/08/2013 03:49 PM End of Report Specimen Performing Organization Address City/State/ZIP Code Phon e Number [facility] [address] [place] [address] SERVICES TRAN [facility] [address] [place] [address] documented in this encounter Visit Diagnoses Not on filedocumented in this encounter Care Teams Gravel Roofer Relationship Specialty Start Date End Date Vasyl Whittaker DO PCP - General 12/23/[address] [place] [address] (work) documented as of this encounter
--- OUTSIDE RECORDS SUMMARY | 2022-05-13 01:49 | XMS_ITS | Encounter Summary ---
:1960 Demographics Home Phone Work Phone Preferred Language Unknown Marital Status Oriental Orthodox Affiliation Unknown Race White Ethnic Group Unknown Author Organization [facility] Address [address] [place] [address] Care Team Providers Name Role Phone Unknown, Provider Primary Care Provider Encounter Details Date Type Department Care Team Description 11/17/2010 Results Only [facility] Marisa Reina MD Laboratory Services - [address] [place] [address] [address] [place] [address] [place] [address] [phone] Social History Tobacco Use Types Packs/Day Years Used Date Never Assessed Sex Assigned at Date Recorded Not on file documented as of this encounter Plan of Treatment Not on filedocumented as of this encounter Procedures Procedure Name Priority Date/Time Associated Diagnosis Comme [facility] SURGICAL PATHOLOGY Routine 11/17/2010 0:00 EST Re sults for this procedure are i n the results section. documented in this encounter Results SURGICAL PATHOLOGY (11/17/2010 0:00 EST) Pathology Report: SURGICAL PATHOLOGY REPORT ? [facility] Reports generated via [employer] interface contain original data; ? LAB however they are lacking the format of the original report. ? Caution should be taken when reading/interpreting unformatted reports. ? Name: ? GAMMELL, SHELTON ? Accession #: ? [id number] ? : ? 1960 (Age: 50) ??F ? Collec t Date: ? 11/17/2010 ? Location: ? [facility] ? Re ceive Date: ? 11/18/2010 ? Provider: MARISA P SILVIA MD ? Copy to: ZACK F ENEDINA DO ? Final Pathologic Diagnosis: ? Endometrium, biopsy: ? 1. ?Strips of i nactive endometrium with focal tubal metaplasia. ? Document reviewed and electr onically signed by: ? VIRIDIANA BARONE MD ? Report ??Date: 11/24/2010 10 :11 ? By the signature above, the attending physician certifies that he/she has ? personally conducted a gross and/or microscopic examination of the described ? specimens and rendered or co nfirmed the above diagnosis. ? Specimen(s) Received: ? Endometrial biopsy ? Clinical History: ? Thickened endometrium on U/S, LMP: 2 years; clinical diagnosis code: 621.30 ? Gross Description: ? Received in formalin labelled Shelton Morrison and EMB is a 2.0 x 2.0 x ?? 0.2 cm aggregate of red-brow n, hemorrhagic tissue fragments admixed with mucus. The specimen is filtered and entirely submitted in a single cassette. (L. ? Fernandez)/cjh ? End of Report ? Specimen Performing Organization Address City/State/ZIP Code Phon e Number [facility] [address] [place], [place] [id number] SERVICES [facility] [address] [place] [address] documented in this encounter Visit Diagnoses Not on filedocumented in this encounter Care Teams Ash Handler Relationship Specialty Start Date End Date Unknown, Provider, PCP - General 11/18/10 12/22/10 documented as of this encounter
--- OUTSIDE RECORDS SUMMARY | 2022-05-13 01:49 | XMS_ITS | Encounter Summary ---
:1960 Demographics Home Phone Work Phone Preferred Language Unknown Marital Status Sikh Affiliation Unknown Race White Ethnic Group Unknown Author Organization [facility] Address [address] [place] [address] Care Team Providers Name Role Phone Vasyl Whittaker DO Primary Care Provider Encounter Details Date Type Department Care Team Description 10/29/2021 Lab Requisition [facility] Outr Resulting Lab, Pathology & Laboratory Provider [facility] [address] [place], [place] [id number] Social History Tobacco Use Types Packs/Day Years Used Date Never Assessed Sex Assigned at Date Recorded Not on file documented as of this encounter Plan of Treatment Not on filedocumented as of this encounter Procedures Procedure Name Priority Date/Time Associated Comments Diagnosis SPEP, INCLUDES Today 10/29/2021 13:15 Results f or this QUANTITATION OF EST procedure ar e in MONOCLONAL SPIKE the results PERFORMABLE section. HOLD SST Today 10/29/2021 13:15 Results for this EST procedure are i n the results section. HOLD SST Today 10/29/2021 13:15 Results for this EST procedure are i n the results section. SERUM FREE LIGHT Today 10/29/2021 13:15 Results for this CHAINS EST procedure are i n the results section. RHEUMATOID FACTOR Today 10/29/2021 13:15 Result s for this EST procedure are i n the results section. C3 COMPLEMENT Today 10/29/2021 13:15 Results fo r this EST procedure are i n the results section. C4 COMPLEMENT Today 10/29/2021 13:15 Results fo r this EST procedure are i n the results section. SPEP, INCLUDES Today 10/29/2021 13:15 Results f or this QUANTITATION OF EST procedure ar e in MONOCLONAL SPIKE the results section. PROTEIN, TOTAL Today 10/29/2021 13:15 EST documented in this encounter Results HOLD SST (10/29/2021 13:15 EST) Pathologist Sig nature Hold Hold [facility]ATOR Y SERVICES Specimen Blood - Venous blood (substance) Performing Organization Address [facility]/ZIP Code Phon e Number [facility] [address] [place] [address] SERVICES HOLD SST (10/29/2021 13:15 EST) Pathologist Sig nature Hold Hold [facility] Specimen Blood - Venous blood (substance) Performing Organization Address [facility]/ZIP Code Phon e Number [facility] [address] [place] [address] SERVICES SPEP, INCLUDES QUANTITATION OF MONOCLONAL SPIKE PERFORMABLE (10/29/2021 13:15 EST) Albumin % 62.3 55.8 - 66.1 % [facility] SERVICES Alpha-1 % 3.4 2.9 - 4.9 % [facility] SERVICES Alpha-2 % 9.1 7.1 - 11.8 % [facility] SERVICES Beta % 10.8 8.4 - 13.1 % [facility] SERVICES Gamma % 14.4 11.1 - 18.8 % [facility] SERVICES SPEP Comment No apparent [facility] monoclonal protein LABORATORY SERVICES seen on serum electrophoresisComm ent: See scanned/supplementa ry report. Total Protein 6.8 6.3 - 8.2 g/dL [facility] SERVICES Specimen Blood - Venous blood (substance) Narrative This result has an attachment that is no t available. Performing Organization Address [facility]/ZIP Code Phon e Number [facility] [address] [place] [address] SERVICES PROTEIN, TOTAL (10/29/2021 13:15 EST) Specimen Blood - Venous blood (substance) Performing Organization Address City/[facility]/ZIP Code Phon e Number [facility] [address] [place] [address] SERVICES SERUM FREE LIGHT CHAINS (10/29/2021 13:15 EST) Pathologist Sig nature [place] Free Lt Chain 1.53 0.33 - 1.94 [facility] mg/dL LABORATORY SERVICES Lambda Free Lt Chain 1.58 0.57 - 2.63 [facility] mg/dL LABORATORY SERVICES [place]/Lambda Ratio 0.97 0.26 - 1.65 [facility] SERVICES Specimen Blood - Venous blood (substance) Performing Organization Address [facility]/ZIP Code Phon e Number [facility] [address] [place] [address] SERVICES RHEUMATOID FACTOR (10/29/2021 13:15 EST) Pathologist Sig nature Rheumatoid Factor <8.6 <12.0 IU/mL [facility] SERVICES Specimen Blood - Venous blood (substance) Performing Organization Address [facility]/ZIP Code Phon e Number [facility] [address] [place] [address] SERVICES C3 COMPLEMENT (10/29/2021 13:15 EST) Pathologist Sig nature C3 Complement 116 81 - 157 mg/dL [facility] SERVICES Specimen Blood - Venous blood (substance) Performing Organization Address [facility] Code Phon e Number [facility] [address] [place] [address] SERVICES C4 COMPLEMENT (10/29/2021 13:15 EST) Pathologist Sig nature C4 Complement 26 13 - 39 mg/dL [facility] LABORAT ORY SERVICES Specimen Blood - Venous blood (substance) Performing Organization Address [facility] Phon e Number [facility] [address] [place] [address] SERVICES documented in this encounter Visit Diagnoses Not on filedocumented in this encounter Additional Health Concerns Infection Onset Date Last Indicated Resolved Time COVID-19 02/16/2022 02/16/2022 03/08/2022 22:15 EDT documented as of this encounter Care Teams Tug Boat Engineer Relationship Specialty Start Date End Date Vasyl Whittaker, PCP - General 12/23/10 [address] [address] documented as of this encounter
--- OUTSIDE RECORDS SUMMARY | 2022-05-13 01:49 | XMS_ITS | Encounter Summary ---
:1960 Demographics Home Phone Work Phone Preferred Language Unknown Marital Status Confucianism Affiliation Unknown Race White Ethnic Group Unknown Author Organization [facility] Address [address] [place] [address] Care Team Providers Name Role Phone Vasyl Whittaker DO Primary Care Provider Encounter Details Date Type Department Care Team Description 02/16/2022 Lab Requisition [facility] Outr Resulting Lab, Pathology & Laboratory Provider [facility] [address] [place], [place] [id number] Social History Tobacco Use Types Packs/Day Years Used Date Never Assessed Sex Assigned at Date Recorded Not on file documented as of this encounter Plan of Treatment Not on filedocumented as of this encounter Procedures Procedure Name Priority Date/Time Associated Diagnosis Comme nts COVID-19 TEST [facility] Today 02/16/2022 9:45 LAB PCR EDT COVID-19 TESTING Routine 02/16/2022 9:45 EDT Resu lts for this procedure are i n the results section. documented in this encounter Results COVID-19 TEST [facility] LAB PCR (02/16/2022 9:45 EDT) Specimen Swab Performing Organization Address City/State/ZIP Code Phon e Number [facility] [address] [place] [address] SERVICES (ABNORMAL) COVID-19 TESTING (02/16/2022 9:45 EDT) COVID-19 rt-PCR Positive (AA) Negative [facility] Result Comment: LABORATORY This test has not been FDA c leared or approved. This test has been authorized by FDA under an EUA for use by authorized laboratories. This test has been authorized only for detection of nucleic acid fro SERVICES m 2018-nCoV, not for any oth er viruses or pathogens. This test is only authorized for the duration of the declaration that circumstances exist justifying the authorization of emergency use of in vitro d iagnostic tests for detectio n and/or diagnosis of 2019-nCoV under section 564(b)(1) of Act, 21 U.S.C ?? 360bbb-3(b) (1), unless the authorization is terminated or revoked sooner. Testing was performed using the sanya SARS-CoV-2 assay ([employer] on the Sanya 6800 System Performing Lab Sanya [address] [facility] Lab [facility]ORY SERVICES Specimen Swab Performing Organization Address City/State/[facility] Code Phon e Number [facility] [address] [place] [address] SERVICES documented in this encounter Visit Diagnoses Not on filedocumented in this encounter Additional Health Concerns Infection Onset Date Last Indicated Resolved Time COVID-19 02/16/2022 02/16/2022 03/08/2022 22:15 EDT documented as of this encounter Care Teams Chief Medical Technologist Relationship Specialty Start Date End Date Vasyl Whittaker, PCP - General 12/23/10 [facility] [address] [id number] documented as of this encounter
--- OUTSIDE RECORDS SUMMARY | 2022-05-13 01:49 | XMS_ITS | Encounter Summary ---
:1960 Demographics Home Phone Work Phone Preferred Language Unknown Marital Status Christianity Affiliation Unknown Race White Ethnic Group Unknown Author Organization [facility] Address [address] [place] [address] Care Team Providers Name Role Phone Vasyl Whittaker DO Primary Care Provider Encounter Details Date Type Department Care Team Description 07/10/2013 Results Only [facility] Roxann Mackay MD Laboratory Services - [address] [place] [address] [place] [address] [address] [facility] [place] [address] [phone] Social History Tobacco Use Types Packs/Day Years Used Date Never Assessed Sex Assigned at Date Recorded Not on file documented as of this encounter Plan of Treatment Not on filedocumented as of this encounter Procedures Procedure Name Priority Date/Time Associated Diagnosis Comme nts CYTOPATHOLOGY Routine 07/10/2013 0:00 EDT Results for this procedure are i n the results section . documented in this encounter Results CYTOPATHOLOGY (07/10/2013 0:00 EDT) Pathology Report: CYTOPATHOLOGY REPORT [facility] Reports generated via electronic interface contain dior ginal data; however they are lacking the format of the original re port. Caution should be taken when reading/interpreting unfo rmatted reports. Name: ? SHELTON CATES ? Accession #: ? [id number] : ? 1960 (Age: 53) ??F ?Collect Date: ? 10/1 02/2013 Location: ? [facility] ? Receive Date: ? 07/11/2013 Provider: ? SUSANNA MACKAY MD Copy to: ? CYTOLOGIC DIAGNOSIS: URINE, BARBOTAGE, CYTOLOGIC EVALUATION: - ??Negative for malignant cells. - ??Scanty cellular evidence. Document reviewed and electronically signed by: ? YA CLIFFORD MD Report Date: ??07/11/2013 16:45 By the signature above, the attending physician certif ies that he/she has personally conducted a gross and/or microscopic examin ation of the described specimens and rendered or confirmed the above diagnosi s. Specimen Type: ? Urine, Barbotage Clinical History: ? Vesicle tenesmus. ??clinical diagnosis code: ??788.99 ? Gross Description: ? 80ccs of clear yellow fluid (etoh added) were received and processed by selective cellular enhancement technique. ? End of Report Specimen Performing Organization Address City/State/ZIP Code Phon e Number [facility] [address] [place] [address] SERVICES [facility] [address] [place] [address] documented in this encounter Visit Diagnoses Not on filedocumented in this encounter Care Teams Health Center Assistant Relationship Specialty Start Date End Date Vasyl Whittaker DO PCP - General 12/23/10 [address] [place] [address] documented as of this encounter
--- OUTSIDE RECORDS SUMMARY | 2022-05-13 01:49 | XMS_ITS | Encounter Summary ---
:1960 Demographics Home Phone Work Phone Preferred Language Unknown Marital Status Shinto Affiliation Unknown Race White Ethnic Group Unknown Author Organization [facility] Address [address] [place] [address] Care Team Providers Name Role Phone Unavailable Primary Care Provider Unavailable Encounter Details Date Type Department Care Team Description 01/16/2008 Results Only [facility] MD Maple conversion [address] [place] [address] [place], [place] [id number] [phone] Social History Tobacco Use Types Packs/Day Years Used Date Never Assessed Sex Assigned at Date Recorded Not on file documented as of this encounter Plan of Treatment Not on filedocumented as of this encounter Procedures Procedure Name Priority Date/Time Associated Diagnosis Comme nts CYTOPATHOLOGY Routine 01/16/2008 0:00 EDT Results for this procedure are i n the results section . documented in this encounter Results CYTOPATHOLOGY (01/16/2008 0:00 EDT) Pathology Report: CYTOPATHOLOGY REPORT [facility] Reports generated via electronic interface contain dior ginal data; however they are lacking the format of the original re port. Caution should be taken when reading/interpreting unfo rmatted reports. Name: ? SHELTON AMBROSE ? Accession #: ? [id number] : ? 1960 (Age: 48) ??F ?Collect Date: ? 12/25 Location: ? [facility] ? Receive Date : ? 01/18/2008 Provider: ?MARISA VEGA MD Copy to: ?FRAN FLORES MD ? Specimen/Source: ? ThinPrep Pap Test, Vagina/Cervix/Endocervix, processed on [employer] ThinPrep Imaging System, with manual evaluati on Last Menstrual Period: ? 2 wks Other: ? Additional clinical information: benign pap hx ? SPECIMEN ADEQUACY ? Satisfactory for Evaluation - transformation zone component absent GENERAL CATEGORIZATION ? Negative for Intraepithelial Lesion or Malignan cy ? Document reviewed and electronically signed by: ? JARON Saucedo(ASCP) ? Report Date: ??01/22/2008 14:45 End of Report Specimen Performing Organization Address City/State/ZIP Code Phon e Number [facility] [address] [place] [address] SERVICES [facility] [address] [place] [address] documented in this encounter Visit Diagnoses Not on filedocumented in this encounter
--- OUTSIDE RECORDS SUMMARY | 2022-05-13 01:49 | XMS_ITS | Encounter Summary ---
:1960 Demographics Home Phone Work Phone Preferred Language Unknown Marital Status Confucianism Affiliation Unknown Race White Ethnic Group Unknown Author Organization [facility] Address [address] [place] [address] Care Team Providers Name Role Phone Vasyl Whittaker DO Primary Care Provider Encounter Details Date Type Department Care Team Description 12/22/2020 Lab Requisition [facility] Outr Resulting Lab, Pathology & Laboratory Provider [facility] [address] [place] [address] Social History Tobacco Use Types Packs/Day Years Used Date Never Assessed Sex Assigned at Date Recorded Not on file documented as of this encounter Plan of Treatment Not on filedocumented as of this encounter Procedures Procedure Name Priority Date/Time Associated Comments Diagnosis SPEP, INCLUDES Today 12/22/2020 10:24 Results f or this QUANTITATION OF EDT procedure ar e in MONOCLONAL SPIKE the results PERFORMABLE section. ANTI DNA (DOUBLE Routine 12/22/2020 10:24 Results for this STRANDED) EDT procedure are i n the results section. C3 COMPLEMENT Routine 12/22/2020 10:24 Results fo r this EDT procedure are i n the results section. C4 COMPLEMENT Routine 12/22/2020 10:24 Results fo r this EDT procedure are i n the results section. SPEP, INCLUDES Routine 12/22/2020 10:24 Results f or this QUANTITATION OF EDT procedure ar e in MONOCLONAL SPIKE the results section. PROTEIN, TOTAL Today 12/22/2020 10:24 EDT documented in this encounter Results SPEP, INCLUDES QUANTITATION OF MONOCLONAL SPIKE PERFORMABLE (12/22/2020 10:24 EDT) Albumin % 61.6 55.8 - 66.1 % [facility] Alpha-1 % 3.4 2.9 - 4.9 % [facility] Alpha-2 % 9.5 7.1 - 11.8 % [facility] Beta % 10.6 8.4 - 13.1 % [facility] Gamma % 14.9 11.1 - 18.8 % [facility] SPEP Comment No apparent [facility] monoclonal protein LABORATORY SERVICES seen on serum electrophoresisComm ent: See scanned/supplementa ry report. Total Protein 6.4 6.3 - 8.2 g/dL [facility] SERVICES Specimen Blood - Venous blood (substance) Narrative This result has an attachment that is no t available. Performing Organization Address [facility]/ZIP Code Phon e Number [facility] [address] [place] [address] SERVICES PROTEIN, TOTAL (12/22/2020 10:24 EDT) Specimen Blood - Venous blood (substance) Performing Organization Address [facility] Phon e Number [facility] [address] [place] [address] SERVICES ANTI DNA (DOUBLE STRANDED) (12/22/2020 10:24 EDT) Anti-DNA (Double <12.3 <30.0 IU/mL [facility] Stranded) Comment: LABORATORY ? SERV ICES ? Negative: ??<30.0 IU/mL ? Borderline Positive: ??30.0 - 75.0 IU/mL ? Positive: ??>75.0 IU/mL Results were obtained with halima jenkins [employer] dsDNA SC TABATHA assay on the [employer] DSX. Specimen Blood - Venous blood (substance) Performing Organization Address [facility]/ZIP Code Phon e Number [facility] [address] [place] [address] SERVICES C3 COMPLEMENT (12/22/2020 10:24 EDT) Pathologist Sig nature C3 Complement 110 81 - 157 mg/dL [facility] SERVICES Specimen Blood - Venous blood (substance) Performing Organization Address [facility]/ZIP [facility] Phon e Number [facility] [address] [place] [address] SERVICES C4 COMPLEMENT (12/22/2020 10:24 EDT) Pathologist Sig nature C4 Complement 23 13 - 39 mg/dL [facility] LABORAT ORY SERVICES Specimen Blood - Venous blood (substance) Performing Organization Address City/State/ZIP Code Phon e Number [facility] [address] [place] [address] SERVICES documented in this encounter Visit Diagnoses Not on filedocumented in this encounter Additional Health Concerns Infection Onset Date Last Indicated Resolved Time COVID-19 02/16/2022 02/16/2022 03/08/2022 22:15 EDT documented as of this encounter Care Teams Tellers Supervisor Relationship Specialty Start Date End Date Vasyl Whittaker, PCP - General 12/23/10 [address] [address] documented as of this encounter
--- OUTSIDE RECORDS SUMMARY | 2022-05-13 01:49 | XMS_ITS | Encounter Summary ---
:1960 Demographics Home Phone Work Phone Preferred Language Unknown Marital Status Mormon Affiliation Unknown Race White Ethnic Group Unknown Author Organization [facility] Address [address] [place] [id number] Care Team Providers Name Role Phone Unknown, Provider Primary Care Provider Encounter Details Date Type Department Care Team Description 11/17/2010 Results Only [facility] Marisa Reina MD Laboratory Services - [address] [place] [id number] [place] [address] [place] [address] [phone] Social History Tobacco Use Types Packs/Day Years Used Date Never Assessed Sex Assigned at Date Recorded Not on file documented as of this encounter Plan of Treatment Not on filedocumented as of this encounter Procedures Procedure Name Priority Date/Time Associated Diagnosis Comme nts CYTOPATHOLOGY Routine 11/17/2010 0:00 EST Results for this procedure are i n the results section . documented in this encounter Results CYTOPATHOLOGY (11/17/2010 0:00 EST) Pathology Report: CYTOPATHOLOGY REPORT ? [facility] ? LAB Reports generated via [employer] interface contain original data; ? however they are lacking the format of the original report. ? Caution should be taken when reading/interpreting unformatted reports. ? Name: ? SHELTON CATES ? Accession #: ? [id number] ? : ? 1960 (Age: 50) ??F ?Collect Date: ? 11/17/2010 ? Location: ? [facility] ? Receive Date: ? 11/19/2010 ? Provider: ?MARISA WEISS TER MD ? Copy to: ?ZACK F BR ODERICK DO ? Specimen/Source: ? Pap Test, Vagina/Cervix/Endocervix, ThinPrep Imaging ? System with manual evaluatio n ? Last Menstrual Period: ? 2 years ? SPECIMEN ADEQUACY ? Satisfactory for Eval uation ? - transformation zone compon ent absent ? GENERAL CATEGORIZATION ? Negative for Intraepi thelial Lesion or Malignancy ? Document reviewed and electr onically signed by: ? Yesi Luu, CT( CP)(IAC) ? Report Date: ??2010 11:33 ? End of Report ? Specimen Performing Organization Address City/State/ZIP Code Phon e Number [facility] [address] [place] [address] SERVICES [facility] [address] [place] [address] documented in this encounter Visit Diagnoses Not on filedocumented in this encounter Care Teams Cereal Miller Relationship Specialty Start Date End Date Unknown, Provider, PCP - General 11/18/10 12/22/10 documented as of this encounter
--- OUTSIDE RECORDS SUMMARY | 2022-05-13 01:49 | XMS_ITS | Encounter Summary ---
:1960 Demographics Home Phone Work Phone Preferred Language Unknown Marital Status Mormonism Affiliation Unknown Race White Ethnic Group Unknown Author Organization [facility] Address [address] [place] [address] Care Team Providers Name Role Phone Vasyl Whittaker DO Primary Care Provider Encounter Details Date Type Department Care Team Description 06/17/2021 Lab Requisition [facility] Outr Resulting Lab, Pathology & Laboratory Provider [facility] [address] [place], [place] [id number] Social History Tobacco Use Types Packs/Day Years Used Date Never Assessed Sex Assigned at Date Recorded Not on file documented as of this encounter Plan of Treatment Not on filedocumented as of this encounter Procedures Procedure Name Priority Date/Time Associated Diagnosis Comme nts COVID[facility]19 TEST [facility] Today 06/16/2021 14:00 LAB PCR EDT COVID-19 TESTING Routine 06/16/2021 14:00 Results for this EDT procedure are i n the results section. documented in this encounter Results COVID-19 TEST [facility] PCR (06/16/2021 14:00 EDT) Specimen Swab - Entire nasopharynx (body structur e) Performing Organization Address City/State/ZIP Code Phon e Number [facility] [address] [place] [address] SERVICES COVID-19 TESTING (06/16/2021 14:00 EDT) COVID-19 rt-PCR Negative Negative [facility] Result Comment: [facility] This test has not been FDA c leared or approved. This test has been authorized by FDA under an EUA for use by authorized laboratories. This test has been authorized only for detection of nucleic acid fro SERVICES m 2019-nCoV, not for any oth er viruses or pathogens. This test is only authorized for the duration of the declaration that circumstances exist justifying the authorization of emergency use of in vitro d iagnostic tests for detectio n and/or diagnosis of 2019-nCoV under section 564(b)(1) of Act, 21 U.S.C ?? 360bbb-3(b) (1), unless the authorization is terminated or revoked sooner. Negative results do not prec lude 2019-nCoV infection and should not be used as the sole basis for treatment or other patient management decisions. Negative results must be combined with clinical observa tions, patient history, and epidemiological informatio n. Testing was performed using the sanya SARS-CoV-2 assay ([employer] on the Sanya 6800 System Performing Lab Sanya 6800 [facility] SERVICES Specimen Swab Performing Organization Address City/State/ZIP Code Phon e Number [facility] [address] [place] [address] SERVICES documented in this encounter Visit Diagnoses Not on filedocumented in this encounter Additional Health Concerns Infection Onset Date Last Indicated Resolved Time COVID-19 02/16/2022 02/16/2022 03/08/2022 22:15 EDT documented as of this encounter Care Teams Solution Strategist Relationship Specialty Start Date End Date Vasyl Whittaker, PCP - General 12/23/10 [address] [address] documented as of this encounter
[2022-05-13 08:22] LABS: Abs Immature Grans 0.02 10^3/uL (0.0-0.06); Absolute Basophil Count 0.04 10^3/uL (0.0-0.2); Absolute Eosinophil Count 0.14 10^3/uL (0.0-0.7); Absolute Lymphocyte Count 1.45 10^3/uL (1.2-3.4); Absolute Monocyte Count 0.53 10^3/uL (0.1-0.8); Absolute Neutrophil Count 4.29 10^3/uL (1.2-6.7); Basophils % 0.6; Eosinophils % 2.2; HGB 12.5 g/dL (11.2-15.7); Immature Grans % 0.3; Lymphocytes % 22.4; MCH 33.2 pg (27.0-33.0); MCHC 33.8 % (32.0-36.0); MCV 98 fL (80-95); MPV 10.4 fL (8.0-11.0); Monocytes % 8.2; Neutrophils % 66.3; Platelet Count 240 10^3/uL (130-400); RBC 3.77 10^6/uL (3.93-5.22); RDW 13.5 % (11.7-14.6); RDW-SD 48.9 fL; WBC 6.47 10^3/uL (4.4-10.8)
[2022-05-13 08:27] LABS: ESR 2 mm/hr (0-30)
[2022-05-13 08:57] LABS: ALT 20 U/L (14-59); AST 17 U/L (15-37); Albumin 3.8 g/dL (3.4-5.0); Alkaline Phosphatase 83 U/L (46-116); Bilirubin, Direct 0.1 mg/dL (0.0-0.2); Bilirubin, Total 0.4 mg/dL (0.2-1.0); CREATININE 1.1 mg/dL (0.55-1.02); Estimated GFR 50.33 (mL/min/1.73m2); Total Protein 7.2 g/dL (6.4-8.2)
[2022-05-13 08:58] LABS: C-Reactive Protein < 0.05 mg/dL (0.0-0.3)
== END 2022-05-13 01:40 | disposition home or self-care (01) ==
LOC: LBO 01:39
PROVIDERS: PCP Family Medicine; Visit Provider Internal Medicine
DX: M25.511 Pain in right shoulder (principal); M25.512 Pain in left shoulder; G89.29 Other chronic pain; H04.123 Dry eye syndrome of bilateral lacrimal glands; M35.00 Sjogren syndrome, unspecified; R68.2 Dry mouth, unspecified; Z51.81 Encounter for therapeutic drug level monitoring; Z79.899 Other long term (current) drug therapy; M19.071 Primary osteoarthritis, right ankle and foot
CPT/HCPCS: 36415; 80076; 85652; 82565; 85025; 86140

== ENCOUNTER 2022-10-05 01:45 | Outpatient (CLI) | payer BC, SELFPAY ==
--- NOTE | 2022-10-05 07:48 | DI.MAMMO_ITS ---
Exam(s) MAMMO SCREENING EXAM: MAMMO SCREENING CLINICAL HISTORY: SCREENING MAMMO FOR BREAST CANCER Z12.31 TECHNIQUE: Mammograms were interpreted according to the usual protocol including computer analysis w [facility] CAD system, tomosynthesis and C-view imaging. COMPARISON: 2013 through 2021 FINDINGS: The breasts are composed of mainly fatty density , Breast Density category A. No suspicious masses or suspicious microcalcifications are seen. No skin thickening or abnormal axillary lymph nodes are seen. There has been no significant change from prior exams. IMPRESSION: BI-RADS Category 1, Negative mammogram Yearly screening mammography is recommended. Breast Density - Category A, fatty density. A negative radiographic report should not delay biopsy if a dominant or clinically suspicious mass is present. Up to ten percent of cancers are not identified on mammography. A negative report may reinforce clinical impression. Adenosis and dense breasts may obscure an underlying neoplasm. False positive reports average 6 to 10%. Patient will receive a letter notifying them of these results.
== END 2022-10-05 02:05 ==
LOC: DI 01:45
PROVIDERS: PCP Family Medicine; Visit Provider Obstetrics & Gynecology
DX: Z12.31 Encounter for screening mammogram for malignant neoplasm of breast (principal)
CPT/HCPCS: 77063; 77067

== ENCOUNTER 2022-10-05 03:17 | Outpatient (CLI) | payer BC, SELFPAY ==
[2022-10-05 08:03] LABS: Abs Immature Grans 0.01 10^3/uL (0.0-0.06); Absolute Basophil Count 0.04 10^3/uL (0.0-0.2); Absolute Eosinophil Count 0.11 10^3/uL (0.0-0.7); Absolute Lymphocyte Count 1.54 10^3/uL (1.2-3.4); Absolute Monocyte Count 0.28 10^3/uL (0.1-0.8); Absolute Neutrophil Count 1.97 10^3/uL (1.2-6.7); Eosinophils % 2.8; HGB 12.3 g/dL (11.2-15.7); Immature Grans % 0.3; MCH 32.4 pg (27.0-33.0); MCHC 33.2 % (32.0-36.0); MCV 97 fL (80-95); MPV 10.3 fL (8.0-11.0); Monocytes % 7.1; Neutrophils % 49.8; Platelet Count 269 10^3/uL (130-400); RDW-SD 46.3 fL; WBC 3.95 10^3/uL (4.4-10.8)
[2022-10-05 08:06] LABS: ESR 1 mm/hr (0-30)
[2022-10-05 09:00] LABS: ALT 16 U/L (14-59); AST 18 U/L (15-37); Albumin 3.9 g/dL (3.4-5.0); Alkaline Phosphatase 70 U/L (46-116); Bilirubin, Direct 0.1 mg/dL (0.0-0.2); Bilirubin, Total 0.3 mg/dL (0.2-1.0); Total Protein 7.3 g/dL (6.4-8.2)
[2022-10-05 09:03] LABS: C-Reactive Protein < 0.05 mg/dL (0.0-0.3)
== END 2022-10-05 03:18 | disposition home or self-care (01) ==
PROVIDERS: Referring Provider Internal Medicine; Visit Provider Internal Medicine
DX: E55.9 Vitamin D deficiency, unspecified (principal); R68.2 Dry mouth, unspecified; Z51.81 Encounter for therapeutic drug level monitoring; Z79.899 Other long term (current) drug therapy; M35.00 Sjogren syndrome, unspecified
CPT/HCPCS: 36415; 80076; 85652; 82565; 85025; 86140

== ENCOUNTER 2022-11-16 02:47 | Outpatient (CLI) | payer BC, SELFPAY ==
[2022-11-16 12:45] LABS: Abs Immature Grans 0.01 10^3/uL (0.0-0.06); Absolute Basophil Count 0.05 10^3/uL (0.0-0.2); Absolute Eosinophil Count 0.12 10^3/uL (0.0-0.7); Absolute Lymphocyte Count 1.75 10^3/uL (1.2-3.4); Absolute Monocyte Count 0.38 10^3/uL (0.1-0.8); Absolute Neutrophil Count 2.69 10^3/uL (1.2-6.7); Eosinophils % 2.4; HCT 36.2 % (36.0-46.0); Immature Grans % 0.2; MCH 32.7 pg (27.0-33.0); MCHC 33.1 % (32.0-36.0); MCV 99 fL (80-95); MPV 10.4 fL (8.0-11.0); Monocytes % 7.6; Neutrophils % 53.8; Platelet Count 230 10^3/uL (130-400); RBC 3.67 10^6/uL (3.93-5.22); RDW 13.2 % (11.7-14.6); RDW-SD 47.9 fL
== END 2022-11-16 02:48 | disposition home or self-care (01) ==
PROVIDERS: PCP Family Medicine; Visit Provider Internal Medicine
DX: D72.819 Decreased white blood cell count, unspecified (principal)
CPT/HCPCS: 36415; 85025

== ENCOUNTER 2022-12-28 03:13 | Outpatient (CLI) | payer BC, SELFPAY ==
[2022-12-28 11:18] LABS: Abs Immature Grans 0.02 10^3/uL (0.0-0.06); Absolute Basophil Count 0.03 10^3/uL (0.0-0.2); Absolute Eosinophil Count 0.11 10^3/uL (0.0-0.7); Absolute Monocyte Count 0.47 10^3/uL (0.1-0.8); Absolute Neutrophil Count 4.86 10^3/uL (1.2-6.7); Basophils % 0.4; ESR 3 mm/hr (0-30); Eosinophils % 1.5; HGB 11.9 g/dL (11.2-15.7); Immature Grans % 0.3; Lymphocytes % 23.6; MCH 32.2 pg (27.0-33.0); MCHC 33.1 % (32.0-36.0); MCV 98 fL (80-95); MPV 10.4 fL (8.0-11.0); Monocytes % 6.5; Neutrophils % 67.7; Platelet Count 240 10^3/uL (130-400); RBC 3.69 10^6/uL (3.93-5.22); RDW 12.6 % (11.7-14.6); RDW-SD 45.6 fL; WBC 7.19 10^3/uL (4.4-10.8)
[2022-12-28 11:57] LABS: ALT 20 U/L (14-59); AST 19 U/L (15-37); Alkaline Phosphatase 73 U/L (46-116); Bilirubin, Direct 0.1 mg/dL (0.0-0.2); Bilirubin, Total 0.3 mg/dL (0.2-1.0); Total Protein 7.4 g/dL (6.4-8.2)
[2022-12-28 12:00] LABS: C-Reactive Protein < 0.05 mg/dL (0.0-0.3)
[2022-12-28 12:01] LABS: Calculated LDL 85 mg/dL (<100); Cholesterol 177 mg/dL (<200); HDL Cholesterol 86 mg/dL (40-60); Triglyceride 33 mg/dL (<150)
[2022-12-28 20:04] LABS: Rheumatoid Factor <8.6 IU/mL (<12.0)
[2022-12-29 09:49] LABS: C3 Complement 105 mg/dL (81-157); C4 Complement 22 mg/dL (13-39)
[2022-12-29 12:46] LABS: Albumin g/dL 4.4 g/dL (3.6-5.2); Total Protein 7.1 g/dL (6.3-8.2)
[2022-12-29 14:39] LABS: Albumin, Urine % 18.6 %; Albumin, Urine mg/dL 2 mg/dL; Globulins, Urine % 81.4 %; Globulins, Urine mg/dL 8 mg/dL; Immunotyping, Urine (See Note); Total Protein Urine 10 mg/dL (See Note)
[2022-12-30 20:01] LABS: Complement, Total 65 U/mL (30-75)
[2023-01-02 12:20] LABS: Cryoglobulin, S Negative %ppt (Negative)
== END 2022-12-28 03:14 | disposition home or self-care (01) ==
PROVIDERS: PCP Family Medicine; Visit Provider Internal Medicine
DX: H04.123 Dry eye syndrome of bilateral lacrimal glands (principal); M35.00 Sjogren syndrome, unspecified; G89.29 Other chronic pain; M25.511 Pain in right shoulder; M25.512 Pain in left shoulder; Z79.899 Other long term (current) drug therapy
CPT/HCPCS: 36415; 80061; 80076; 84156; 84166; 85652; 86335; 82565; 82595; 84165; 85025; 86140; 86160; 86162; 86431

== ENCOUNTER 2023-07-12 03:52 | Outpatient (CLI) | payer BC, SELFPAY ==
--- OUTSIDE RECORDS SUMMARY | 2023-07-12 03:55 | XMS_ITS | Continuity of Care Document ---
Author Name Unknown Organization [facility] Address [address] [place] [address] Care Team Providers Care Atomizer Assembler Name Role Phone INNA AJ, CHASITY Primary Care Physician Encounter [facility] NBR [id number] Date(s): 10/28/22 - 10/28/22 [facility] [address] [place] [address]- Encounter Diagnosis ASCUS of cervix with negative high risk HPV(Discharge Diagnosis) - 10/28/22 Women's annual routine gynecological examination(Discharge Diagnosis) - 10/28/22 Skin lesion of left arm(Discharge Diagnosis) - 10/28/22 Abdominal bloating(Discharge Diagnosis) - 10/28/22 Discharge Disposition: Home or Self Care Attending Physician: Richie Reina MD, FACOG Allergies, Adverse Reactions, Alerts Substance Reaction Severity Status Glutens Bloating symptom Moderate Active levoFLOXacin Sleep problem Moderate Active Assessment and Plan Future Appointments Future Scheduled Tests Radiology* MG Mammo Screening Bilateral 07/27/22 Functional Status 10/28/22 Recent Travel History No recent travel Other exposure to Infectious Disease Non e Medications cevimeline 30 mg oral capsule 30 mg = 1 cap, Oral, TID, # 270 cap, 0 Refill(s) Start Date: 07/26/22 Status: Ordered gabapentin 300 mg oral capsule 300 mg = 1 cap, Oral, TID, # 90 cap, 0 Refill(s) Start Date: 07/26/22 Status: Ordered aye oral capsule See Instructions, with Tumeric, one daily by mouth, 0 Refill(s) Start Date: 07/26/22 Status: Ordered hydroxychloroquine 200 mg oral tablet 200 mg = 1 tab, Oral, BID, 0 Refill(s) Start Date: 07/26/22 Status: Ordered ibuprofen 800 mg oral tablet 800 mg = 1 tab, Oral, TID, not to exceed 3200 mg/day, as needed for pain, # 90 tab, 0 Refill(s) Start Date: 07/26/22 Status: Ordered Vitamin D3 50,000 intl units oral capsule 1,250 mcg = 1 cap, Oral, 0 Refill(s) Start Date: 07/26/22 Status: Ordered Problem List Condition Confirmation Course Effective Dates Status H ealth Status Informant Abdominal bloating Confirmed Active Back pain Confirmed Active Celiac sprue Confirmed Active Depression Confirmed Active Diverticulitis Confirmed Active Fibromyalgia Confirmed Active Hernia Confirmed Active Obesity Confirmed Active Encounter for screening mammogram for malignant neoplasm of breast Confirmed Active Sjogrens syndrome Confirmed Active Procedures Procedure Date Related Diagnosis Body Site Status Excision 2017 Completed Colonoscopy 2016 Completed Ovarian cystectomy 2 2012 Comp leted section 3 Comple tenzin EGD (esophagogastroduodenosc opy) gastric outlet reduction Completed Laparoscopy 4 Completed Lumpectomy of breast Comp leted 1minor salivary glands 2with cystoscopy 3X2 4X2 Vital Signs Most recent to oldest [Reference Range]: 1 Blood Pressure [90-140/60-90 mmHg] 132/7 6mmHg (10/28/22 10:48 AM) Weight 84.4 kg (10/28/22 10:48 AM) Weight Measured (lbs) 186.07 lb (10/28/22 10:48 AM) [place] Body Weight Calculated 48.95 kg (10/28/22 10:48 AM) Height 156.21 cm (10/28/22 10:48 AM) Height/Length Measured (inches) 61.5 inc h (10/28/22 10:48 AM) BSA Measured 1.91 m2 (10/28/22 10:48 AM) Body Mass Index 34.59 kg/m2 (10/28/22 10:48 AM) Social History Social History Type Response Tobacco Never tobacco user T obacco Use:. Sex Male Physician Outpatient Note * Richie Reina MD, FACOG: PERFORM Event Display: Office Clinic Note Physician Authored Date: [id number] DARRYN SHELTON M :1960 Age:62 years Sex:Female Visit Date:10/28/2022 Primary Care Physician: CHASITY KEITH MD Chief Complaint Well Woman Exam. Still having a lot of bloating. Doesn't eat gluten. Abdominal US done on 09/23/22 at [facility] was normal. Bowel movements daily, gassy, hx of constipation. Goes to gym 5 days a week. Treadmill, abs/arms, working on core. No PMB or discharge. Additional Information RLQ pain, sharp, intermittent. WBC lab was 3.95 on 10/05/2022.. Being rechecked in a couple weeks. Review of Systems NS- negative and still working 3.5 days a week.?? CV neg. Resp nonsmoker. GI h/o celiac sprue on diet. Colonoscopy due again for FH of colon cancer.??MS exercising.?? H/O back ache but better.?? Endocrine- keeping weight low. Physical Exam Vitals & Measurements BP:??132/76?? HT:??156.21??cm?? WT:??84.4??kg?? BMI:??34.59?? BSA:??1.91?? General: [Alert and oriented, well nourished, well groomed, no acute distress] Eye: [Pupils equal]. HEENT: [Normocephalic, masked.].?? Neck: [Supple, no thyroid enlargement, no lymphadenopathy]. Lungs: [Clear to auscultation, non-labored respiration].?? Heart: [Normal rate, regular rhythm, no murmurs].?? Breasts: [symmetrical, no masses, no skin discoloration, no abnormal nipple discharge, no palpable lymphadenopathy] Abdomen: [Soft, non-tender, slight tympany, normal BS, no fluid wave. no masses]. Musculoskeletal: [Grossly normal range of motion and strength, no tenderness or swelling, back withslight scoliosis but no kyphosis]. Skin: [Skin is warm, dry, pretibial red/purple patch of skin, benign nevus upper thigh on left but left arm 9 mm irregular multicolor nevus]. Neurologic: [Awake, alert] Psychiatric: [Cooperative, appropriate mood and affect] Vulva:[normal external female genitalia, no masses, no atrophy, Bartholin???s and [place]???s glands normal] Bladder:[urethra normal, no bladder prolapse] Vagina:[normal pink rugated mucosa,??minimal vaginal discharge, adequate pelvic support] Cervix: [high, atrophic, bleeds with pap, no lesions. normal appearance, no lesions or lacerations] Uterus:[small size, normal??shape, non tender, mobile, no prolapse] Adnexa:[no masses or tenderness] Perineum/Anus/Rectum:[no skin changes or hemorrhoids, no polyps] Assessment/Plan 1.??Women's annual routine gynecological examination??Z01.419 Mammogram already done. Pap done because of atypia last year but neg for HR HPV. ?? 2.??ASCUS of cervix with negative high risk HPV??R87.610 Probably related to atrophic changes- suggested Replens 2x a week that may also help vaginal dryness. Ordered: Outside Lab Request, 10/28/22 11:16:00 EST, Stop date 10/28/22 11:16:00 EST, [facility]-Pap + Pap Dependent HPV, ASCUS of cervix with negative high risk HPV ?? 3.??Skin lesion of left arm??L98.9 She thinks it may be new and with irregular borders, suggest removal ?? 4.??Abdominal bloating??R14.0 Normal BS and negative US recently. No masses.?? Abdominal wall folds persist s/p weight loss but no significant pathology seen. She follows a gluten free diet.? Referral Orders Referral Management, Medical Service: ENT, Reason: 9 mm irregular border pigmented lesion left arm., Type: Evaluate and Treat, Start: 10/28/22 Problem List/Past Medical History Ongoing Abdominal bloating Back pain Celiac sprue Depression Diverticulitis Encounter for screening mammogram for malignant neoplasm of breast Fibromyalgia Hernia Obesity Sjogrens syndrome Historical Procedure/Surgical History ???Excision (2018)???Colonoscopy (2017)???Ovarian cystectomy (2013)??? section???EGD (esophagogastroduodenoscopy) gastric outlet reduction???Laparoscopy???Lumpectomy of breast Medications cevimeline 30 mg oral capsule, 30 mg= 1 cap, Oral, TID gabapentin 300 mg oral capsule, 300 mg= 1 cap, Oral, TID aye oral capsule, See Instructions hydroxychloroquine 200 mg oral tablet, 200 mg= 1 tab, Oral, BID ibuprofen 800 mg oral tablet, 800 mg= 1 tab, Oral, TID Vitamin D3 50,000 intl units oral capsule, 1250 mcg= 1 cap, Oral Allergies Glutens??(Bloating symptom) levoFLOXacin??(Sleep problem) Social History Alcohol Current- Comments: rarely Electronic Cigarette/Vaping Electronic Cigarette Use: Never. 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 Exercise Exercise frequency: 5-6 times/week. Home/Environment Lives with Spouse. Living situation: Home/Independent. Sexual Sexually active: Yes. Substance Use Never Tobacco Never tobacco user Tobacco Use:. Family History Alive: Sister. Alive and well: Daughter and Son. Cancer: Mother. Emphysema: Mother. Heart disease: Father. Family Member(s): ?? FATHER, at age: Unknown. Cause of : Family Member(s): ?? MOTHER, at age: Unknown. Cause of : Electronically Signed on 10/28/22 12:00 PM Richie Reina MD, FACOG Patient Care team information Personnel Name: CHASITY KEITH MD Address: Address: [address] [place] [id number] [facility]
--- OUTSIDE RECORDS SUMMARY | 2023-07-12 03:55 | XMS_ITS | Continuity of Care Document ---
Author Name Unknown Organization [facility] Address [address] [place] [address] Care Team Providers Care Cleat Feeder Name Role Phone INNA AJ, CHASITY Primary Care Physician Encounter [facility] NBR [id number] Date(s): 02/10/23 - 02/10/23 [facility] [address] [place] [address]- Encounter Diagnosis Malignant melanoma(Discharge Diagnosis) - 02/08/23 Discharge Disposition: Home or Self Care Attending Physician: VICKEY Queen Allergies, Adverse Reactions, Alerts Substance Reaction Severity Status Glutens Bloating symptom Moderate Active levoFLOXacin Sleep problem Moderate Active Assessment and Plan Future Appointments Future Scheduled Tests Radiology* MG Mammo Screening Bilateral 07/27/22 Functional Status 02/10/23 Other exposure to Infectious Disease Non e [...] breast Confirmed Active Sjogrens syndrome Confirmed Active Skin lesion Confirmed Active Procedures Procedure Date Related Diagnosis Body Site Status Excision 1 2017 Completed Colonoscopy 2017 Completed Ovarian cystectomy 2 2012 Comp leted section 3 Comple tenzin EGD (esophagogastroduodenosc opy) gastric outlet reduction Completed Laparoscopy 4 Completed Lumpectomy of breast Comp leted 1minor salivary glands 2with cystoscopy 3X2 4X2 Social History Social History Type Response Tobacco Never tobacco user T obacco Use:. Sex Female Physician Outpatient Note * VICKEY Queen: MODIFY, PERFORM, MODIFY, MODIFY Nirmala Hernandez: MODIFY Event Display: Office Clinic Note Physician Authored Date: [id number] DARRYNSHELTON Leatha :1960 Age:63 years Sex:Female Visit Date:02/10/2023 Primary Care Physician: CHASTIY KEITH MD Chief Complaint suture removal History of Present Illness Established patient last seen in our office on 01/31/23 for wide excision of pT1a Melanoma. She is here today for recheck/suture removal. Final pathology did show residual invasive melanoma.?? Negativemargins with closest margin at 3:00 with a distance of 8 mm.?? Distance to depth/base of 5.8 mm.?? Distance from melanoma in situ of 7 mm.?? Overall maximal tumor thickness was found to be 0.4 mm noting Kale level II and continued pT1a classification without any evidence of expansion into the papillary dermis.?? Superficial spreading melanoma type. She notes the right shoulder shave biopsy is still??a little sore. Review of Systems Fatigue?? Negative.?? Fever?? Negative.?? Weight Loss?? Negative.?? Snoring?? Negative.?? Hoarseness?? Negative.? Cough?? Negative.??Rashes?? Negative.?? Eczema?? Negative.?? Headaches?? Negative.?? Thyroid Problems?? Negative.? Environmental allergies?? Negative.?? Hay Fever?? Negative.?? Reflux?? Negative.?? Sleep apnea?? Negative.?? Physical Exam GENERAL APPEARANCE:??The patient is awake, alert, and oriented and in no acute distress, Appears nutritionally sound, Healthy in appearance, Voice is strong, with no stridor or stertor, Handling secretions without difficulty.?PSYCH:??affect normal, good eye contact, oriented to person, oriented to place, oriented to time.?NEURO:??CN's II-XII grossly intact, Gait is normal,?HEENT:??The patient is normocephalic with a normal facies?NECK:??There is no palpable lymphadenopathy.?HEART:??regular rate and rhythm.?LUNGS:??clear to auscultation bilaterally, no wheezes/rhonchi/rales.?SKIN:??Well-healing surgical??site??left arm and shave biopsy site right shoulder. ?MUSCULOSKELETAL:??normal gait and station.?? Procedure The patient has been seen today postoperatively for evaluation and suture removal. The incision site is healing well, there is no evidence of excessive scar contracture, dehiscence or purulence. I have recommended postoperative scar massage with either a cocoa butter lotion or [id number] scarmassage lotions. Sutures were removed without complication. The patient tolerated the procedure well Assessment/Plan 1.??Malignant melanoma??C43.9 Sutures removed without complication. ??Pathology reviewed and given. Dermatofibroma right shoulder.?? Tumor remained??pT1a classification??and following NCCN guidelines does not??recommend??lymph node biopsy.?? Recommend full body gowned skin exam??in 3 months??and sooner as needed. Problem List/Past Medical History Ongoing Abdominal bloating Back pain Celiac sprue Depression Diverticulitis Encounter for screening mammogram for malignant neoplasm of breast Fibromyalgia Hernia Obesity Sjogrens syndrome Skin lesion Historical Procedure/Surgical History ???Excision (2018)???Colonoscopy (2017)???Ovarian cystectomy (2012)??? section???EGD (esophagogastroduodenoscopy) gastric outlet reduction???Laparoscopy???Lumpectomy of breast [...] Cigarette Use: Never. 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 Exercise Exercise frequency: 5-6 times/week. Home/Environment Lives [...] Unknown. Cause of : Electronically Signed on 02/10/23 08:40 AM VICKEY Queen Patient Care team information Care Team Personnel Name: CHASITY KEITH MD Position: No Access Member Role: Primary Care Physician Address: Address: [address] [place], [place] [address], [place] [address] [facility] Care Team Related Persons Name: NA CATES Address: [address] [place], [place] [id number] [facility] Name: NA CATES Address: [address] [place], [place] [id number] [facility]
--- OUTSIDE RECORDS SUMMARY | 2023-07-12 03:55 | XMS_ITS | Continuity of Care Document ---
Author Name Unknown Organization [facility] Ambulatory Clinics Address [address] [place] [address] Care Team Providers Care Nailhead Operator Name Role Phone INNA AJ, CHASITY Primary Care Physician [phone] Encounter [facility] NBR [id number] Date(s): 01/11/23 - 01/11/23 [facility] Ambulatory Clinics [address] [place], [place] [address] Encounter Diagnosis Skin lesion(Discharge Diagnosis) - 01/10/23 Atypical nevus(Discharge Diagnosis) - 01/11/23 Discharge Disposition: Home or Self Care Attending Physician: VICKEY Queen Allergies, Adverse Reactions, Alerts Substance Reaction Severity Status Glutens Bloating symptom Moderate Active levoFLOXacin Sleep problem Moderate Active Assessment and Plan Future Scheduled Tests Radiology* MG Mammo Screening Bilateral 07/27/22 Medications cevimeline 30 mg oral capsule 30 [...] Female Physician Outpatient Note * VICKEY Queen: PERFORM Margarito Moore PA: PERFORM, MODIFY Margarito Moore PA: MODIFY, MODIFY Margarito Moore PA: MODIFY Event Display: Office Clinic Note Physician Authored Date: [id number] SHELTON CATES :1960 Age:63 years Sex:Female Visit Date:01/11/2023 Primary Care Physician: CHASITY KEITH MD History of Present Illness New patient referred to the office for evaluation of skin lesion of the left arm. Referral notes left arm 9 mm irregular multicolor nevus present. ??This is a new lesion and it developed quite rapidly over the last month or 2??she believes.?Patient noticed the lesion in the past year. Patients'solder brother did have skin cancer removed.?? She is unsure if this was??melanotic or nonmelanotic.??She has no personal history of skin cancer. ??Patient notes that it has not changed at all since she noticed it. Review of Systems Fatigue?? Negative.?? Fever?? Negative.?? Weight Loss?? Negative.?? Snoring?? Negative.?? Hoarseness?? Negative.?? Glaucoma?? Negative.?? Double Vision?? Negative.?? Other eye problems?? Negative.?? Loss of taste?? Negative.?? Loss of smell?? Negative.?? Sinus trouble?? Negative.?? Difficulty swallowing?? Negative.?? High blood pressure?? Negative.?? Heart failure?? Negative.?? Chest pain/Angina?? Negative.?? Heart Attack?? Negative.?? Ankle/Foot swelling?? Negative.?? Shortness of breath?? Negative.?? High cholesterol?? Negative.?? Cough?? Negative.?? Diabetes?? Negative.?? Ulcer?? Negative.?? Blood in Stool ?? Negative.?? Colitis?? Negative.?? Prostate Problems?? Negative.?? Kidney Stones? ? Negative.?? Hepatitis?? Negative.?? Liver trouble?? Negative.?? Gall bladder problems?? Negative.?? Kidney infection?? Negative.?? Blood in urine?? Negative.?? Bladder infection?? Negative.?? Arthritis?? Negative.?? Fibromyalgia?? Negative.?? Bone disease?? Negative.?? Joint disease?? Negative.??Back problems?? Negative.?? Breast (lump/tumor)?? Negative.?? Rashes?? Negative.?? Eczema?? Negative.?? Headaches?? Negative.?? Meningitis?? Negative.?? Thyroid Problems?? Negative.?? Pituitary Problems?? Negative.?? Bleeding Disorder?? Negative.?? Anemia?? Negative.?? Lymphoma?? Negative.?? Venereal Disease?? Negative.?? AIDS/HIV?? Negative.?? Cancer?? Negative.?? Blood transfusion?? Negative.??Seizures?? Negative.?? Loss of consciousness?? Negative.?? Head Injury/concussion?? Negative.?? Multiple Sclerosis?? Negative.?? Nervous disorder?? Negative.?? Anxiety?? Negative.?? Depression?? Negative.?? Frequent infection?? Negative.?? Environmental allergies?? Negative.?? Hay Fever?? Negative.?? Reflux?? Negative.?? Sleep apnea?? Negative.?? Physical Exam Vitals & Measurements 5'2, 177LBS GENERAL APPEARANCE:??The patient is awake, alert, and oriented and in no acute distress, Appears nutritionally sound, Healthy in appearance, Voice is strong, with no stridor or stertor, Handling secretions without difficulty.?PSYCH:??affect normal, good eye contact, oriented to person, oriented to place, oriented to time.?NEURO:??CN's II-XII grossly intact, Gait is normal,?HEENT:??The patient is normocephalic with a normal facies with cranial nerves 2 through 12 bilaterally equal and intact. Pupils are equal and reactive to light with extraocular movements bilaterally equal and intact. There is no proptosis or enophthalmos ? NECK:??There is no palpable lymphadenopathy including no lymphadenopathy of the left??axilla. ?FACE:??There is no frontal or nasal bossing. The patient is not retrognathic or micrognathic. TMJ palpation normal..? SKIN:??asymmetric 1.2cm multi pigmented melanotic lesion of the left triceps skin asphotodocumented. ?MUSCULOSKELETAL:??normal gait and station.?EXTREMITIES:??grossly equal with full range of motion x 4.?? Procedure Surgery Consent??There was a full discussion of all treatment options including conservative management, second opinion and surgical intervention. The patient and or family has opted to proceed with surgical intervention. We have discussed risks and complications as it relates to the procedure and postoperative period, including but not limited to those listed on the consent. All of their questions were answered, consent was reviewed and signed. There is no history of any bleeding disorders or anesthesia complications. We will proceed..?PFP??punch biopsy??with Dermablade ? Location: (left triceps skin) ? Size: (1.2cm with 3mm punch biopsy) ?Prep:??Betadine used to prep site.?Consent:??The procedure was discussed, risks and complications explained and consent obtained.?Procedure:??Punch biopsy 3 mm was performed, hemostasis was achieved and no complications.? Discharge Instructions:??Keep area moist with ointment and clean, follow up in seven days for pathology.?? Images 2023-01-11 08:15:06 Assessment/Plan 1.??Skin lesion??L98.9 2.??Atypical nevus??D22.9 Concerning atypical nevi of the left tricep skin is photodocumented.?? Concerning for possible??melanoma. ??Punch biopsy was performed centrally. ??Single??stitch of??4-0 Monocryl was applied.?? We reviewed??differential diagnosis??and if??positive we will get patient back??for recheck and??eventual ly suture removal.?? If negative/benign??counseled on ongoing wound care??and to return if sutures does not dissolve within 3 weeks.?? Today was a focused skin exam??and pending results she may require??full body gowned exam??with follow- up??which regardless given family history should be done on an annual??basis??even if lesion is benign.?? Counseled on ongoing sun protection. Follow Up Instructions prn, calling with pathology results Problem List/Past Medical History Ongoing Abdominal bloating [...] Cigarette Use: Never. 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 Exercise Exercise frequency: 5-6 times/week. Home/Environment Lives [...] Unknown. Cause of : Electronically Signed on 01/11/23 08:56 AM VICKEY Queen Patient Care team information Care Team Personnel Name: CHASITY KEITH MD Position: No Access Member Role: Primary Care Physician Address: Address: [address] [place] [id number] [facility] Care Team Related Persons Name: NA CATES Address: Home [address] [place], [place] [id number] [facility] Name: NA CATES Address: Home [address] [place], [place] [id number] [place]
[2023-07-12 08:51] LABS: Abs Immature Grans 0.01 10^3/uL (0.0-0.06); Absolute Basophil Count 0.04 10^3/uL (0.0-0.2); Absolute Eosinophil Count 0.11 10^3/uL (0.0-0.7); Absolute Lymphocyte Count 1.41 10^3/uL (1.2-3.4); Absolute Monocyte Count 0.36 10^3/uL (0.1-0.8); Absolute Neutrophil Count 1.86 10^3/uL (1.2-6.7); Basophils % 1.1; Eosinophils % 2.9; HCT 34.5 % (36.0-46.0); HGB 11.4 g/dL (11.2-15.7); Immature Grans % 0.3; Lymphocytes % 37.2; MCH 32.3 pg (27.0-33.0); MCV 98 fL (80-95); MPV 9.9 fL (8.0-11.0); Monocytes % 9.5; Platelet Count 224 10^3/uL (130-400); RBC 3.53 10^6/uL (3.93-5.22); RDW 13.7 % (11.7-14.6); RDW-SD 49.2 fL; WBC 3.79 10^3/uL (4.4-10.8)
[2023-07-12 09:27] LABS: ALT 16 U/L (14-59); AST 18 U/L (15-37); Albumin 3.5 g/dL (3.4-5.0); Alkaline Phosphatase 77 U/L (46-116); Bilirubin, Direct 0.1 mg/dL (0.0-0.2); Bilirubin, Total 0.3 mg/dL (0.2-1.0); CREATININE 0.9 mg/dL (0.55-1.02); Estimated GFR 71.83 (mL/min/1.73m2); Total Protein 6.8 g/dL (6.4-8.2)
[2023-07-12 14:32] LABS: ESR (LRH) 5 mm/hr
[2023-07-12 18:57] LABS: Rheumatoid Factor <8.6 IU/mL (<12.0)
[2023-07-13 09:48] LABS: C4 Complement 28 mg/dL (13-39)
[2023-07-13 13:51] LABS: Albumin 60.7 % (55.8-66.1); Albumin g/dL 3.9 g/dL (3.6-5.2); Total Protein 6.5 g/dL (6.3-8.2)
[2023-07-13 15:19] LABS: Albumin, Urine % 23.4 %; Albumin, Urine mg/dL 2 mg/dL; Globulins, Urine % 76.6 %; Globulins, Urine mg/dL 8 mg/dL; Immunotyping, Urine (See Note); Total Protein Urine 10 mg/dL (See Note)
[2023-07-14 13:30] LABS: Complement, Total 66 U/mL (30-75)
== END 2023-07-12 03:53 | disposition home or self-care (01) ==
PROVIDERS: PCP Family Medicine; Visit Provider Internal Medicine
DX: M35.00 Sjogren syndrome, unspecified (principal); H04.123 Dry eye syndrome of bilateral lacrimal glands; M25.511 Pain in right shoulder; G89.29 Other chronic pain; Z79.899 Other long term (current) drug therapy
CPT/HCPCS: 36415; 80076; 84156; 84166; 85652; 86335; 82565; 82595; 84165; 85025; 86140; 86160; 86162; 86431

== ENCOUNTER → 2023-11-29 02:00 | Outpatient (CLI) | payer BC, SELFPAY ==
--- NOTE | 2023-11-29 | DI.MAMMO_ITS ---
Exam(s) MAMMO SCREENING EXAM: MAMMO SCREENING CLINICAL HISTORY: SCREENING,Z12.31 TECHNIQUE: Mammograms were interpreted according to the usual protocol including computer analysis w [employer] CAD system, tomosynthesis and C-view imaging. COMPARISON: 2014 through 2022 FINDINGS: The breasts are composed of mainly fatty density , Breast Density category A. No suspicious masses or suspicious microcalcifications are seen. No skin thickening or abnormal axillary lymph nodes are seen. There has been no significant change from prior exams. IMPRESSION: BI-RADS Category 1, Negative mammogram Yearly screening mammography is recommended. Breast Density - Category A, fatty density. A negative radiographic report should not delay biopsy if a dominant or clinically suspicious mass is present. Up to ten percent of cancers are not identified on mammography. A negative report may reinforce clinical impression. Adenosis and dense breasts may obscure an underlying neoplasm. False positive reports average 6 to 10%. Patient will receive a letter notifying them of these results.
== END ==
PROVIDERS: PCP Family Medicine; Visit Provider Obstetrics & Gynecology
DX: Z12.31 Encounter for screening mammogram for malignant neoplasm of breast (principal)
CPT/HCPCS: 77063; 77067

== ENCOUNTER 2023-12-13 09:46 | Outpatient (REF) | payer BC, SELFPAY ==
[2023-12-13 12:32] LABS: Abs Immature Grans 0.02 10^3/uL (0.0-0.06); Absolute Basophil Count 0.06 10^3/uL (0.0-0.2); Absolute Lymphocyte Count 1.55 10^3/uL (1.2-3.4); Absolute Monocyte Count 0.41 10^3/uL (0.1-0.8); Basophils % 1.1; Eosinophils % 1.9; HCT 36.3 % (36.0-46.0); HGB 11.8 g/dL (11.2-15.7); Immature Grans % 0.4; Lymphocytes % 29.6; MCH 32.2 pg (27.0-33.0); MCHC 32.5 % (32.0-36.0); MCV 99 fL (80-95); MPV 10.7 fL (8.0-11.0); Monocytes % 7.8; Neutrophils % 59.2; Platelet Count 249 10^3/uL (130-400); RBC 3.67 10^6/uL (3.93-5.22); RDW 13.2 % (11.7-14.6); RDW-SD 48.2 fL; WBC 5.24 10^3/uL (4.4-10.8)
[2023-12-13 12:37] LABS: ESR 6 mm/hr (0-30)
[2023-12-13 17:22] LABS: Anion Gap 11.9 mmol/L (3-11); BUN 16 mg/dL (7-18); CO2 26.1 mmol/L (21.0-32.0); CREATININE 0.9 mg/dL (0.55-1.02); Calcium 8.9 mg/dL (8.5-10.1); Chloride 106 mmol/L (98-107); Estimated GFR 71.83 (mL/min/1.73m2); Glucose 101 mg/dL (74-106); Sodium 144 mmol/L (136-145)
[2023-12-13 18:54] LABS: HIV-1/2 Ag & Ab Screen Negative (Negative)
== END 2023-12-13 09:47 | disposition home or self-care (01) ==
LOC: NCHCN 09:46
PROVIDERS: PCP Family Medicine; Visit Provider Nurse Practitioner Family
DX: R59.0 Localized enlarged lymph nodes (principal)
CPT/HCPCS: 80048; 85652; 87389; 85025

== ENCOUNTER 2024-01-26 04:56 | Outpatient (CLI) | payer BC, SELFPAY ==
[2024-01-26 08:00] LABS: Abs Immature Grans 0.01 10^3/uL (0.0-0.06); Absolute Basophil Count 0.04 10^3/uL (0.0-0.2); Absolute Eosinophil Count 0.11 10^3/uL (0.0-0.7); Absolute Monocyte Count 0.32 10^3/uL (0.1-0.8); Absolute Neutrophil Count 2.39 10^3/uL (1.2-6.7); Eosinophils % 2.7 %; HCT 36.4 % (36.0-46.0); HGB 12.2 g/dL (11.2-15.7); Immature Grans % 0.2 %; Lymphocytes % 29.5 %; MCH 33.4 pg (27.0-33.0); MCHC 33.5 % (32.0-36.0); MCV 100 fL (80-95); MPV 10.7 fL (8.0-11.0); Monocytes % 7.9 %; Neutrophils % 58.7 %; Platelet Count 236 10^3/uL (130-400); RBC 3.65 10^6/uL (3.93-5.22); RDW 13.7 % (11.7-14.6); RDW-SD 50.1 fL; WBC 4.07 10^3/uL (4.4-10.8)
[2024-01-26 08:02] LABS: Bilirubin Negative (Negative); Blood Negative (Negative); Clarity Clear (Clear); Glucose Negative (Negative); Ketones Negative (Negative); Leukocyte Esterase Negative (Negative); Nitrite Negative (Negative); Specific Gravity 1.015 (1.005-1.025); Urobilinogen 0.2 mg/dL (Up to 0.2); pH 5.5 (5-8)
[2024-01-26 08:06] LABS: ESR 3 mm/hr (0-30)
[2024-01-26 08:28] LABS: ALT 22 U/L (14-59); AST 18 U/L (15-37); Albumin 3.7 g/dL (3.4-5.0); Alkaline Phosphatase 82 U/L (46-116); Anion Gap 8.1 mmol/L (3-11); BUN 20 mg/dL (7-18); Bilirubin, Total 0.3 mg/dL (0.2-1.0); CO2 28.9 mmol/L (21.0-32.0); Calcium 8.9 mg/dL (8.5-10.1); Chloride 108 mmol/L (98-107); Estimated GFR 62.91 (mL/min/1.73m2); Glucose 80 mg/dL (74-106); Potassium 3.8 mmol/L (3.5-5.1); Sodium 145 mmol/L (136-145)
[2024-01-26 08:29] LABS: C-Reactive Protein < 0.50 mg/dL (<or=0.5)
[2024-01-26 17:47] LABS: Rheumatoid Factor <8.6 IU/mL (<12.0)
[2024-01-27 10:12] LABS: C3 Complement 111 mg/dL (81-157); C4 Complement 23 mg/dL (13-39)
[2024-01-29 12:52] LABS: Complement, Total 67 U/mL (30-75)
[2024-01-29 13:04] LABS: Albumin 61.4 % (55.8-66.1); Albumin g/dL 4.1 g/dL (3.6-5.2); Total Protein 6.6 g/dL (6.3-8.2)
== END 2024-01-26 04:57 | disposition home or self-care (01) ==
LOC: LBO 04:56
PROVIDERS: PCP Family Medicine; Visit Provider Internal Medicine
DX: H04.123 Dry eye syndrome of bilateral lacrimal glands (principal); M35.00 Sjogren syndrome, unspecified; G89.29 Other chronic pain; Z79.899 Other long term (current) drug therapy
CPT/HCPCS: 36415; 80053; 85652; 81003; 82595; 84165; 85025; 86140; 86160; 86162; 86431

== ENCOUNTER 2024-03-08 02:36 | Outpatient (CLI) | payer BC, SELFPAY ==
[2024-03-08 09:04] LABS: TSH 2.84 uIU/Ml (0.36-3.74); Vitamin B12 432 pg/mL (193-986)
[2024-03-08 09:07] LABS: Folate > 20.0 ng/mL (8.6-20.0)
== END 2024-03-08 02:37 | disposition home or self-care (01) ==
PROVIDERS: PCP Family Medicine; Visit Provider Internal Medicine
DX: M35.00 Sjogren syndrome, unspecified (principal); R01.1 Cardiac murmur, unspecified; R71.8 Other abnormality of red blood cells
CPT/HCPCS: 36415; 82607; 82746; 84443

== ENCOUNTER 2024-05-17 08:36 | Emergency (ER) | payer BC, SELFPAY ==
--- OUTSIDE RECORDS SUMMARY | 2024-05-17 08:42 | XMS_ITS | Encounter Summary ---
[place] [address] Care Team Providers Care Floor Covering Layer Name Role Phone Anthony Samaniego MD Primary Care Provider [phone] Reason for Visit * Reason Onset Date Comments Medication Refill 05/09/2024 Encounter Details Date Type Department Care Team (Late Contact Info) Description 05/09/2024 Refill [place] [address] Benny Solano MD [facility] [place] [address] Sjogren's syndrome, with unspecified organ involvement; Dry eyes; Sicca syndrome Social History Tobacco Use Types Packs/Day Years Used Date Smoking Tobacco: Never Smokeless Tobacco: Never Alcohol Use Standard Drinks/Week Comments Yes 1 (1 standard drink = 0.6 oz pure alcohol) once or twice a week MAYBE, not every week Sex and Gender Information Value Date Recorded Sex Assigned at Not on file Gender Identity Female 08/06/2018 4:55 AM EST Sexual Orientation Not on file documented as of this encounter Plan of Treatment Upcoming Encounters Date Type Department Care Team (Late Contact Info) Description 08/02/2024 10:30 AM EST Office Visit [place] [address] Benny Solano MD [facility] [place] [address] documented as of this encounter Visit Diagnoses Diagnosis Sjogren's syndrome, with unspecified organ involvement Dry eyes Tear film insufficiency, unspecified Sicca syndrome documented in this encounter Care Teams Floor Covering Layer Relationship Specialty Start Date End Date Anthony Samaniego MD [address] [place] [address] PCP - General 07/16/14 documented as of this encounter
--- OUTSIDE RECORDS SUMMARY | 2024-05-17 08:42 | XMS_ITS | Continuity of Care Document ---
Author Organization [facility] Address [address] [place] [address] Care Team Providers Care Assistant Professor Of Life Sciences Name Role Phone INNA AJ, CHASITY Primary Care Physician Encounter [facility] NBR [id number] Date(s): 11/22/23 - 11/22/[address] [address]- Discharge Disposition: Home Allergies, Adverse Reactions, Alerts Substance Reaction Severity Status Glutens Bloating symptom Moderate Active levoFLOXacin Sleep problem Moderate Active Assessment and Plan Future Appointments Future Scheduled Tests Radiology* MG Mammo Screening Bilateral 11/22/23 Medications cevimeline 30 mg oral capsule 30 [...] Related Diagnosis Body Site Status Excision 1 2018 Completed Colonoscopy 2017 Completed Ovarian cystectomy 2 2012 Comp leted section 3 Comple tenzin EGD (esophagogastroduodenosc opy) gastric outlet reduction Completed Laparoscopy 4 Completed Lumpectomy of breast Comp leted 1minor salivary glands 2with cystoscopy 3X2 4X2 Social History Social History Type Response Tobacco Never tobacco user T obacco Use:. Sex Female Patient Care team information Care Team Personnel Name: CHASITY KEITH MD Position: No Access Member Role: Primary Care Physician Address: Address: [address] [place] [address] [facility] Care Team Related Persons Name: NA CATES Address: Home [address] [place], [place] [id number] [place] Name: NA CATES Address: Home [address] [place], [place] [id number] [place]
--- OUTSIDE RECORDS SUMMARY | 2024-05-17 08:42 | XMS_ITS | Encounter Summary ---
Author [place] [address] Care Team Providers Care Capacitor Assembler Name Role Phone Anthony Samaniego MD Primary Care Provider [phone] Reason for Visit * Reason Onset Date Comments Medication Refill 04/10/2024 Encounter Details Date Type Department Care Team (Late st Contact Info) Description 04/10/2024 Refill [place] [address] Ashlee Garcia, [facility] [place] [address] Chronic pain of both shoulders; Rotator cuff tendinitis, unspecified laterality; Chronic bilateral low back pain without sciatica Social History [...] Encounters Date Type Department Care Team (Late st Contact Info) Description 08/02/2024 10:30 AM EST Office Visit [place] [address] Benny Solano MD [facility] [place] [address] documented as of this encounter Visit Diagnoses Diagnosis Chronic pain of both shoulders Pain in joint, shoulder region Rotator cuff tendinitis, unspecified laterality Chronic bilateral low back pain without sciatica documented in this encounter Care Teams Capacitor Assembler Relationship Specialty Start Date End Date Anthony Samaniego MD [address] [place] [address] PCP - General 07/16/14 documented as of this encounter
--- OUTSIDE RECORDS SUMMARY | 2024-05-17 08:42 | XMS_ITS | Encounter Summary ---
Author Organization [facility] [place] [address] Care Team Providers Care Ring Conductor Name Role Phone Anthony Samaniego MD Primary Care Provider [phone] Encounter Details Date Type Department Care Team (Latest Contact Info) Description 01/29/2024 Travel Social History Tobacco Use Types Packs/Day Years [...] 10:30 AM EST Office [place] [address] Benny Solano MD [facility] [place] [address] documented as of this encounter Visit Diagnoses Not on filedocumented in this encounter Care Teams Ring Conductor Relationship Specialty Start Date End Date Anthony Samaniego MD [address] [place] [address] PCP - General 07/16/14 documented as of this encounter
--- OUTSIDE RECORDS SUMMARY | 2024-05-17 08:42 | XMS_ITS | Encounter Summary ---
[place] [address] Care Team Providers Care Insurance Agency Sales Manager Name Role Phone Anthony Samaniego MD Primary Care Provider [phone] Reason for Visit * Reason Comments Medication Refill Encounter Details Date Type Department Care Team (Late Contact Info) Description 07/12/2023 [place] [address] Benny Solano MD [facility] [place] [address] Sjogren's syndrome, with unspecified organ involvement; Dry [...] 10:30 AM EST Office [place] [address] Benny Solano MD [facility] [place] [address] documented as of this encounter Visit Diagnoses Diagnosis Sjogren's syndrome, with unspecified organ involvement Dry eyes Tear film insufficiency, unspecified Sicca syndrome documented in this encounter Care Teams Insurance Agency Sales Manager Relationship Specialty Start Date End Date Anthony Samaniego MD [address] [place] [address] PCP - General 07/16/14 documented as of this encounter
--- OUTSIDE RECORDS SUMMARY | 2024-05-17 08:42 | XMS_ITS | Encounter Summary ---
[place] [address] Care Team Providers Care Field Sales Executive Name Role Phone Anthony Samaniego MD Primary Care Provider [phone] Reason for Visit * Reason Comments Medication Refill Encounter Details Date Type Department Care Team (Late Contact Info) Description 12/10/2023 Ref[place] [address] Benny Solano MD [facility] [address] Sjogren's syndrome, with unspecified organ involvement; Dry [...] 10:30 AM EST Office [place] [address] Benny Solano MD [facility] [place] [address] documented as of this encounter Visit Diagnoses Diagnosis Sjogren's syndrome, with unspecified organ involvement Dry eyes Tear film insufficiency, unspecified Sicca syndrome documented in this encounter Care Teams Field Sales Executive Relationship Specialty Start Date End Date Anthony Samaniego MD [address] [place] [address] PCP - General 07/16/14 documented as of this encounter
--- OUTSIDE RECORDS SUMMARY | 2024-05-17 08:42 | XMS_ITS | Encounter Summary ---
[place] [address] Care Team Providers Care Director Perioperative Name Role Phone Anthony Samaniego MD Primary Care Provider [phone] Reason for Visit * Reason Onset Date Comments Medication Refill 01/23/2024 Encounter Details Date Type Department Care Team (Late Contact Info) Description 01/23/2024 Refill [place] [address] Benny Solano MD [facility] [place] [address] Sjogren's syndrome, with unspecified organ involvement; Dry [...] 10:30 AM EST Office [place] [address] Benny Solano MD [facility] [place] [place] [address] documented as of this encounter Visit Diagnoses Diagnosis Sjogren's syndrome, with unspecified organ involvement Dry eyes Tear film insufficiency, unspecified Sicca syndrome documented in this encounter Care Teams Director Perioperative Relationship Specialty Start Date End Date Anthony Samaniego MD [address] [place] [address] PCP - General 07/16/14 documented as of this encounter
--- OUTSIDE RECORDS SUMMARY | 2024-05-17 08:42 | XMS_ITS | Encounter Summary ---
Author Organization [facility] [place] [address] Care Team Providers Care Paper Control Clerk Name Role Phone Anthony Samaniego MD Primary Care Provider [phone] Encounter Details Date Type Department Care Team (Latest Contact Info) Description 07/17/2023 Travel Social History Tobacco Use Types Packs/Day [...] 10:30 AM EST [place] [address] Benny Solano MD [facility] [place] [address] documented as of this encounter Visit Diagnoses Not on filedocumented in this encounter Care Teams Paper Control Clerk Relationship Specialty Start Date End Date Anthony Samaniego MD [address] [place] [address] PCP - General 07/16/14 documented as of this encounter
--- OUTSIDE RECORDS SUMMARY | 2024-05-17 08:42 | XMS_ITS | Continuity of Care Document ---
Author Organization [facility] Ambulatory Clinics Address [address] [place] [address] Care Team Providers Care Manager Cosmetic Name Role Phone CHASITY KEITH MD Primary Care Physician Encounter [facility] NBR [id number] Date(s): 02/02/24 - 02/02/24 [facility] Ambulatory Clinics [address] [place] [address]- Discharge Disposition: Home or Self Care Attending Physician: Uday Sauer MD Allergies, Adverse Reactions, Alerts Substance Reaction Severity Status Glutens Bloating symptom Moderate Active levoFLOXacin Sleep problem Moderate Active Assessment and Plan Future Appointments Future Scheduled Tests Radiology* MG Mammo Screening Bilateral 11/22/23 Medications cevimeline 30 mg oral capsule 30 mg = 1 cap, Oral, TID, # 270 cap, 0 Refill(s) Start Date: 07/26/22 Status: Ordered estradiol 0.1 mg/g vaginal cream See Instructions, 1 g Vaginally three times weekly at bedtime ., # 42.5 g, 3 Refill(s), Pharmacy: [id number], 156.21, cm, 10/28/22 10:48:00 EST, Height, 84.7, kg, 02/02/24 10:36:00 EDT, Weight Dosing Start Date: 02/02/24 Status: Ordered Flexeril as needed for muscle spams per patient., 0 Refill(s) Start Date: 02/02/24 Status: Ordered gabapentin 300 mg oral capsule [...] Active Fibromyalgia Confirmed Active Hernia Confirmed Active History of skin cancer 1 Confirmed Active Obesity Confirmed Active Encounter for screening mammogram for malignant neoplasm of breast Confirmed Active Sjogrens syndrome Confirmed Active Skin lesion Confirmed Active 1Dr. Dr. Marquis Nagel. Procedures Procedure Date Related Diagnosis Body Site Status Excision 1 2017 Completed Colonoscopy 2017 Completed Ovarian cystectomy 2 2012 Comp leted section 3 Comple tenzin EGD (esophagogastroduodenosc opy) gastric outlet reduction Completed Excision of lesion of skin 4 Completed Laparoscopy 5 Completed Lumpectomy of breast Comp leted 1minor salivary glands 2with cystoscopy 3X2 4Left arm 5X2 Vital Signs Most recent to oldest [Reference Range]: 1 Blood Pressure [90-140/60-90 mmHg] 130/8 2mmHg (02/02/24 10:20 AM) Mean Arterial Pressure, Cuff [65-140 mmH g] 98 mmHg (02/02/24 10:20 AM) Weight 84.7 kg (02/02/24 10:20 AM) Weight Measured (lbs) 186.731 lb (02/02/24 10:20 AM) Weight Dosing 84.700 kg (02/02/24 10:20 AM) Social History Social History Type Response Smoking Status Smoking tobacco use: Never tobacco user;Never entered on: 02/02/24 Sex Female Patient Care team information Care Team Personnel Name: CHASITY KEITH MD Position: No Access Member Role: Primary Care Physician Address: Address: [address] [place] [phone] [facility] Care Team Related Persons Name: NA CATES Address: [address] [place], [place] [id number] [facility] Name: NA CATES Address: [address] [place], [place] [id number] [facility]
--- OUTSIDE RECORDS SUMMARY | 2024-05-17 08:42 | XMS_ITS | Encounter Summary ---
Author Organization [place] [address] Care Team Providers Care Police Patrol Officer Name Role Phone Anthony Samaniego MD Primary Care Provider [phone] Encounter Details Date Type Department Care Team (Late st Contact Info) Description 07/18/2023 9:00 AM EDT Office [place] [address] Benny Solano MD [facility] [place] [address] Medication monitoring encounter; High risk medication use; Sjogren's syndrome, with unspecified organ involvement; Dry eyes; Sicca syndrome; Chronic pain of both shoulders; Rotator cuff tendinitis, unspecified laterality; Chronic bilateral low back pain without sciatica; Skin rash; Rash; Vitamin D deficiency; Inflammatory arthropathy; Dry mouth; Chronic back pain, unspecified back location, unspecified back pain laterality Social History Tobacco Use Types Packs/Day Years [...] Sign Reading Time Taken Comments Blood Pressure 118/64 07/18/2023 8:44 AM EDT Pulse 61 07/18/2023 8:44 AM EDT Temperature 36.5 ??C (97.7 ??F) 07/18/2023 8:44 AM ED T Respiratory Rate 15 07/18/2023 8:44 AM EDT Oxygen Saturation 99% 07/18/2023 8:44 AM EDT Inhaled Oxygen Concentration - - Weight 85.6 kg (188 lb 12.8 oz) 07/18/2023 8:44 AM EDT Height - - Body Mass Index 34.53 10/11/2022 8:49 AM EST documented in this encounter Progress Notes * Benny Solano MD - 07/18/2023 9:00 AM EDT Rheumatology Follow-up Note Rheum hx Celiac Dz Sj??gren???s Syndrome + lip BX SS - on HCQ Trialed turmeric Interval History: Ai Morrison 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 Gabapentin 2, 2 and 3 most days. HCQ up to date on exams Ibuprofen twice a day does not want to switch Cevemilinee she feels when she needs to take it Flexeril rarely Resent skin cancer removal melonoma for which she has follow up. No parotid enlargem or other glands Her sicca symptoms are well controlled She has cream foir her peñaloza patch itchy disclored and dark. 4 cm x 3 cm dark and raised with erythema underneath unchanged She denies any swollen glands, parotitis, Raynaud's, pruritus, myalgia, depression, eye pain, eye redness, joint swelling, weight loss or night sweats She recently hrut her back x 3days from the gym. She is not interested in PT. Denies red flag symptoms Review of Systems Rheumatic history (x) means positive Iritis Dactylitis Pleuritis Pericarditis Oral / Nasal Ulcers PE/DVT Spontaneous Discoid SLE STD Raynaud???s Psoriasis Seizures Anemia Leucopenia Thrombocytopenia Psychosis from a medical condition Review of Systems: X = positive response. Comments are only made for responses that are changed from previous, not discussed in HPI, or otherwise require clarification. Systemic Comments Generalized pain Fatigue/tiredness Fevers Chills Night sweats Recent weight loss Recent Weight gain Head and neck Headaches Neck pain/stiffness Lymphadenopathy Ocular erythema Xerophthalmia Gritty eyes Eye pain Photophobia Oral sores Xerostomia Jaw claudication Cardiopulmonary Chest discomfort Dyspnea Cough Hemoptysis Gastrointestinal Dysphagia Heartburn Nausea Emesis Abdominal pain Hematochezia Diarrhea Constipation + Genitourinary Hematuria Dysuria Musculoskeletal Muscle weakness Myalgia Shoulder pain Raynaud's Neuropsychiatric Paresthesia Dysesthesia Dizziness/vertigo Anxiety Depression Cognitive problems Initial insomnia Night awakenings Nonrestorative sleep Dermatologic Xerosis cutis Photosensitivity Rash as above PMH: Celiac disease biopsy-proven, follows with GI [...] smoker. 1 drink per week. 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 Family Hx: PGM had RA. Mother had brain aneurysms, from COPD. Also had colon cancer. Sister has vasculitis. Physical exam Patient Vitals for the past 24 hrs: Temp Pulse Resp BP SpO2 07/18/23 0844 36.5 ??C (97.7 ??F) 61 15 118/64 99 % General: , NAD HEENT: Mucous membranes are moist good pooling , no oral mucosal ulcerations, temporal artery non-palpable, No LAD Cardiovascular: RR, MRG Lungs: Clear to auscultation bilaterally Abdomen: Soft, non tender, non distended, + bowel sounds, Neuro: Alert and oriented x3. Cranial nerves III through XII grossly intact. - Strength 5/5 Skin: (-)ulcers, 3 x 5 raised erythematous and darkened lesion over the left peñaloza Vascular: Pulses are equal in all extremities. MSK Back: Non tender over the spine and costovertebral angles bilaterally. (-)[place]-normal SLR, TTP over the left si joint area Neck: full range of motion. Extremities Shoulders: [...] knees and ankles; no active swelling, tenderness or synovitis at any joint. No soft tissue nodules. . FM tender points. Sensitive to gentle [...] (40-104) Folic acid vitamin B12 AME (ESTRELLA) LABEL SEWER 0.9 dsDNA CCP Rx C3-C4 SPEP TSH [...] pelvis with oral and IV contrast at [facility] Oral contrast seen in the stomach through distal small bowel. The terminal ileum and colon are not opacified with oral contrast and are suboptimally evaluated. There is increased stool seen throughout the colon. Diverticula are again noted in the lower descending and sigmoid regions. No small boweldilatation or fold thickening. Lung bases are clear [...] level 30 Impression/recommendations: Ai Morrison 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 She is here for follow up fatigue, arthralgias. Sjogren Syndrome - SS- - Serologies negative. Positive minor salivary gland biopsy for Sjogren's inSeptember 2018 -reviewed no concerning signs lymphoma - negativer - specific labs and monitoring - reviewed over phone will request full appear to be within normal limits - sicca sx: management dry eyes and mouth with cevemline - wellcontrolled sees 3-4 x per year eye docotr 2+ x per year Continue conservative measures including preservative-free artificial tears, flaxseed oil, Frequent sips of water, Biotene mouthwash/spray, prescription toothpaste. Cont cevimeline 30 mg tid (patient can start with once or twice and see how she does) discussed about the side effects. Left peñaloza plaque darkened some scaling - request derm notes - unclear topical they prescribed Shoulder pain - irmproved with PT Lower back pain -doing well- exacerbation no red flag - deferred PT - wld like refill in her flexeril Leukopenia -resolved Chronic pain fibromyalgia - continue gabapentin to 900 mg 3 times daily -Recommend over the counter Lidoderm patch for the back pain Highly recommend PT ABd fullness bloating - SIBO and Celiacs followed by GI is scheduling appt agree and follow up withGyn high risk medication HCQ - No SE/AE- u2d - eye exam Monitoring Plaquenil, hydroxychloroquine (HCQ)-adverse effects/side effects (AE/SE) Patient is aware of the the side effects of hydroxychloroquine to include mild increased risk for infection, cytopenias, ocular toxicity, cardiomyopathy, and myopathy. The patient will make me aware of any planned surgeries so hold parameters can be identified. The patient is aware to complete labsand eye examinations as requested. Orders Placed This Encounter Procedures CBC (with Diff) CRP, acute inflammation Sedimentation rate Rheumatoid factor, quant C4 Complement C3 Complement Complement, Total Comprehensive metabolic panel (non-fasting) Protein Electrophoresis, serum Urinalysis without microscopic Cryoglobulin Return in about 6 months (around 01/17/2024) for In Person. >41 minutes spent in total today documented in this encounter Plan of Treatment Upcoming Encounters Date Type Department Care Team (Late st Contact Info) Description 08/02/2024 10:30 AM EST Office [place] [address] Benny Solano MD [facility] [place] [address] Scheduled Orders Name Type Priority Associated Diagnoses Orde r Schedule CBC (with Diff) Lab Routine Medication monitoring encounter High risk medication use Sjogren's syndrome, with unspecified organ involvement Dry eyes Sicca syndrome Chronic pain of both shoulders Rotator cuff tendinitis, unspecified laterality Chronic bilateral low back pain without sciatica Skin rash Rash Vitamin D deficiency Inflammatory arthropathy Dry mouth Chronic back pain, unspecified back location, unspecified back pain laterality Every 6 months for 2 Occurrences starting 07/18/2023 until 07/18/2024 CRP, acute inflammation Lab Routine Medication monitoring encounter High risk medication use Sjogren's syndrome, with unspecified organ involvement Dry eyes Sicca syndrome Chronic pain of both shoulders Rotator cuff tendinitis, unspecified laterality Chronic bilateral low back pain without sciatica Skin rash Rash Vitamin D deficiency Inflammatory arthropathy Dry mouth Chronic back pain, unspecified back location, unspecified back pain laterality Every 6 months for 2 Occurrences starting 07/18/2023 until 07/18/2024 Sedimentation rate Lab Routine Medication monitoring encounter High risk medication use Sjogren's syndrome, with unspecified organ involvement Dry eyes Sicca syndrome Chronic pain of both shoulders Rotator cuff tendinitis, unspecified laterality Chronic bilateral low back pain without sciatica Skin rash Rash Vitamin D deficiency Inflammatory arthropathy Dry mouth Chronic back pain, unspecified back location, unspecified back pain laterality Every 6 months for 2 Occurrences starting 07/18/2023 until 07/18/2024 Rheumatoid factor, quant Lab Routine Medication monitoring encounter High risk medication use Sjogren's syndrome, with unspecified organ involvement Dry eyes Sicca syndrome Chronic pain of both shoulders Rotator cuff tendinitis, unspecified laterality Chronic bilateral low back pain without sciatica Skin rash Rash Vitamin D deficiency Inflammatory arthropathy Dry mouth Chronic back pain, unspecified back location, unspecified back pain laterality Every 6 months for 2 Occurrences starting 07/18/2023 until 07/18/2024 C4 Complement Lab Routine Medication monitoring encounter High risk medication use Sjogren's syndrome, with unspecified organ involvement Dry eyes Sicca syndrome Chronic pain of both shoulders Rotator cuff tendinitis, unspecified laterality Chronic bilateral low back pain without sciatica Skin rash Rash Vitamin D deficiency Inflammatory arthropathy Dry mouth Chronic back pain, unspecified back location, unspecified back pain laterality Every 6 months for 2 Occurrences starting 07/18/2023 until 07/18/2024 C3 Complement Lab Routine Medication monitoring encounter High risk medication use Sjogren's syndrome, with unspecified organ involvement Dry eyes Sicca syndrome Chronic pain of both shoulders Rotator cuff tendinitis, unspecified laterality Chronic bilateral low back pain without sciatica Skin rash Rash Vitamin D deficiency Inflammatory arthropathy Dry mouth Chronic back pain, unspecified back location, unspecified back pain laterality Every 6 months for 2 Occurrences starting 07/18/2023 until 07/18/2024 Complement, Total Lab Routine Medication monitoring encounter High risk medication use Sjogren's syndrome, with unspecified organ involvement Dry eyes Sicca syndrome Chronic pain of both shoulders Rotator cuff tendinitis, unspecified laterality Chronic bilateral low back pain without sciatica Skin rash Rash Vitamin D deficiency Inflammatory arthropathy Dry mouth Chronic back pain, unspecified back location, unspecified back pain laterality Every 6 months for 2 Occurrences starting 07/18/2023 until 07/18/2024 Comprehensive metabolic panel (non-fasting) Lab Routine Medication monitoring encounter High risk medication use Sjogren's syndrome, with unspecified organ involvement Dry eyes Sicca syndrome Chronic pain of both shoulders Rotator cuff tendinitis, unspecified laterality Chronic bilateral low back pain without sciatica Skin rash Rash Vitamin D deficiency Inflammatory arthropathy Dry mouth Chronic back pain, unspecified back location, unspecified back pain laterality Every 6 months for 2 Occurrences starting 07/18/2023 until 07/18/2024 Protein Electrophoresis, serum Lab Routine Medication monitoring encounter High risk medication use Sjogren's syndrome, with unspecified organ involvement Dry eyes Sicca syndrome Chronic pain of both shoulders Rotator cuff tendinitis, unspecified laterality Chronic bilateral low back pain without sciatica Skin rash Rash Vitamin D deficiency Inflammatory arthropathy Dry mouth Chronic back pain, unspecified back location, unspecified back pain laterality Every 6 months for 2 Occurrences starting 07/18/2023 until 07/18/2024 Urinalysis without microscopic Lab Routine Medication monitoring encounter High risk medication use Sjogren's syndrome, with unspecified organ involvement Dry eyes Sicca syndrome Chronic pain of both shoulders Rotator cuff tendinitis, unspecified laterality Chronic bilateral low back pain without sciatica Skin rash Rash Vitamin D deficiency Inflammatory arthropathy Dry mouth Chronic back pain, unspecified back location, unspecified back pain laterality Every 6 months for 2 Occurrences starting 07/18/2023 until 07/18/2024 Cryoglobulin Lab Routine Medication monitoring encounter High risk medication use Sjogren's syndrome, with unspecified organ involvement Dry eyes Sicca syndrome Chronic pain of both shoulders Rotator cuff tendinitis, unspecified laterality Chronic bilateral low back pain without sciatica Skin rash Rash Vitamin D deficiency Inflammatory arthropathy Dry mouth Chronic back pain, unspecified back location, unspecified back pain laterality Every 6 months for 2 Occurrences starting 07/18/2023 until 07/18/2024 documented as of this encounter Visit Diagnoses Diagnosis Medication monitoring encounter Encounter for therapeutic drug monitoring High risk medication use Encounter for long-term (current) use of other medications Sjogren's syndrome, with unspecified organ involvement Dry eyes Tear film insufficiency, unspecified Sicca syndrome Chronic pain of both shoulders Pain in joint, shoulder region Rotator cuff tendinitis, unspecified laterality Chronic bilateral low back pain without sciatica Skin rash Rash and other nonspecific skin eruption Rash Rash and other nonspecific skin eruption Vitamin D deficiency Unspecified vitamin D deficiency Inflammatory arthropathy Arthropathy, unspecified, site unspecified Dry mouth Disturbance of salivary secretion Chronic back pain, unspecified back location, unspecified back pain laterality documented in this encounter Care Teams Police Patrol Officer Relationship Specialty Start Date End Date Anthony Samaniego MD [address] [place] [address] PCP - General 07/16/14 documented as of this encounter
--- OUTSIDE RECORDS SUMMARY | 2024-05-17 08:42 | XMS_ITS | Encounter Summary ---
[place] [address] Care Team Providers Care Lithograph Press Feeder Name Role Phone Anthony Samaniego MD Primary Care Provider [phone] Reason for Visit * Reason Onset Date Comments Medication Refill 08/12/2023 Encounter Details Date Type Department Care Team (Late st Contact Info) Description 08/12/2023 Refill [place] [address] Benny Solano MD [facility] [place] [address] High risk medication use; Inflammatory arthropathy; Dry eyes; Dry mouth Social History Tobacco [...] 10:30 AM EST Office [place] [address] Benny Solano MD [facility] [place] [address] documented as of this encounter Visit Diagnoses Diagnosis High risk medication use Encounter for long-term (current) use of other medications Inflammatory arthropathy Arthropathy, unspecified, site unspecified Dry eyes Tear film insufficiency, unspecified Dry mouth Disturbance of salivary secretion documented in this encounter Care Teams Lithograph Press Feeder Relationship Specialty Start Date End Date Anthony Samaniego MD [address] [place] [address] PCP - General 07/16/14 documented as of this encounter
--- OUTSIDE RECORDS SUMMARY | 2024-05-17 08:42 | XMS_ITS | Encounter Summary ---
[place] [address] Care Team Providers Care Personnel Research Scientist Name Role Phone Anthony Samaniego MD Primary Care Provider [phone] Reason for Visit * Reason Comments Medication Refill Encounter Details Date Type Department Care Team (Late Contact Info) Description 08/23/2023 Ref[place] [address] Ashlee Garcia, [facility] [place] [address] Chronic pain of both shoulders; Rotator cuff [...] 10:30 AM EST [place] [address] Benny Solano MD [facility] [place] [address] documented as of this encounter Visit Diagnoses Diagnosis Chronic pain of both shoulders Pain in joint, shoulder region Rotator cuff tendinitis, unspecified laterality Chronic bilateral low back pain without sciatica documented in this encounter Care Teams Personnel Research Scientist Relationship Specialty Start Date End Date Anthony Samaniego MD [address] [place] [address] PCP - General 07/16/14 documented as of this encounter
--- OUTSIDE RECORDS SUMMARY | 2024-05-17 08:42 | XMS_ITS | Clinical Summary ---
Author Organization [place] [address] Care Team Providers Care Hot Mix Operator Name Role Phone Anthony Samaniego MD Primary Care Provider [phone] [phone] Allergies Active Allergy Reactions Criticality Noted Date Comments Gluten Other (See Comments) 06/28/2012 constipation Levofloxacin 10/26/2016 Medications Medication Sig Dispensed Refills Start Date End Date Status DOCUSATE CALCIUM (STOOL SOFTENER ORAL) Take by mouth as needed. Active PREVIDENT 5000 DRY MOUTH 1.1 % Gel nightly. 11/15/2018 Active cholecalciferol, Vitamin D3, 1,250 mcg (50,000 unit) CapsuleIndications:H igh risk medication use,Inflammatory arthropathy,Dry eyes,Dry mouth Take 1 capsule by mouth once monthly 12 capsule 12/21/2020 Active TURMERIC ORAL Take 2,000 mg by mouth daily. Active cyclobenzaprine (Flexeril) 5 mg tabletIndications:Ch ronic back pain, unspecified back location, unspecified back pain laterality Take 1 tablet by mouth 3 times daily as needed for Muscle spasms. 30 tablet 07/18/2023 Active hydroxychloroquine (Plaquenil) 200 mg tabletIndications:Hi gh risk medication use,Dry eyes,Vitamin D deficiency,Inflammat ory arthropathy,Dry mouth TAKE 2 TABLETS DAILY 180 tablet 3 12/22/2023 Active cevimeline (Evoxac) 30 mg capsule TAKE 1 CAPSULE THREE TIMES A DAY 90 capsule 11 12/22/2023 Active ibuprofen (Advil) 800 mg tabletIndications:Ch ronic pain of both shoulders,Rotator cuff tendinitis, unspecified laterality,Chronic bilateral low back pain without sciatica Take 1 tablet by mouth 2 times daily. 180 tablet 04/23/2024 Active gabapentin (Neurontin) 300 mg capsuleIndications:S jogren's syndrome, with unspecified organ involvement,Dry eyes,Sicca syndrome Take 3 capsules by mouth 3 times daily. 270 capsule 3 05/10/2024 Active Active Problems Problem Noted Date Diagnosed Date Excessive skin and subcutaneous tissue Sjogren's syndrome 08/22/2018 Celiac disease/sprue 08/26/2015 Chronic constipation 08/26/2015 Encounters Date Type Department Care Team Description 05/09/2024 Refill Rheumatology at [place] [id number] Benny Solano MD Sjogren's syndrome, with unspecified organ involvement; Dry eyes; Sicca syndrome 04/28/2024 Refill Rheumatology at [place] [phone] Benny Solano MD Sjogren's syndrome, with unspecified organ involvement; Dry eyes; Sicca syndrome 04/21/2024 [place] [phone] Benny Solano MD Chronic pain of both shoulders; Rotator cuff tendinitis, unspecified laterality; Chronic bilateral low back pain without sciatica 04/10/2024 [place] [address] Ashlee Garcia DO Chronic pain of both shoulders; Rotator cuff tendinitis, unspecified laterality; Chronic bilateral low back pain without sciatica from Last 3 Months Immunizations Name Administration Dates Next Due TD Adult 01/02/2006 Family History Medical History Relation Comments Colorectal Cancer Maternal Aunt Colorectal Cancer Mother Rheumatoid Arthritis Paternal Grandmother Relation Status Comments Maternal Aunt Mother Paternal Grandmother Social History Tobacco Use Types Packs/Day Years Used Date Smoking Tobacco: Never Smokeless Tobacco: Never Tobacco Cessation:Counseling Given: Not Answered Alcohol Use Standard Drinks/Week Comments Yes 1 (1 standard drink = 0.6 oz pure alcohol) once or twice a week MAYBE, not every week Sex and Gender Information Value Date Recorded Sex Assigned at Not on file Gender Identity Female 08/06/2018 4:55 AM EST Sexual Orientation Not on file Last Filed Vital Signs Vital Sign Reading Time Taken Comments Blood Pressure 139/73 02/05/2024 7:50 AM EDT Pulse 61 02/05/2024 7:50 AM EDT Temperature 36.6 ??C (97.9 ??F) 02/05/2024 7:50 AM ED T Respiratory Rate 15 07/18/2023 8:44 AM EDT Oxygen Saturation 100% 02/05/2024 7:50 AM EDT Inhaled Oxygen Concentration - - Weight 84.9 kg (187 lb 3.2 oz) 02/05/2024 7:50 A M EDT Height 157.5 cm (5' 2) 10/11/2022 8:49 AM EST Body Mass Index 34.24 10/11/2022 8:49 AM EST Plan of Treatment Upcoming Encounters Date Type Department Care Team (Late st Contact Info) Description 08/02/2024 10:30 AM EST Office [place] [address] Benny Solano MD [facility] [address] Health Maintenance Due Date Last Done Comments CT Colonography 1960 FIT DNA 1960 FIT 1960 Sigmoidoscopy 1960 HIV screen 01/08/1978 Hepatitis C Screening 01/08/1978 Lipid Screening 01/08/1978 Tdap adult 01/08/1979 HPV test 01/08/1990 PAP Smear 01/08/1990 Breast Cancer Share Decision Needed 2000 Breast Cancer screening 2000 Zoster vaccine (1 of 2) 01/08/2010 Advance Directive 01/08/2015 Tetanus vaccine 01/03/2016 01/02/2006 Diabetes Screening (HgbA1C o r Glucose) 01/23/2022 01/23/2019, 10/24/2018, 08/06/2018, Additional history exists Covid-19 Vaccine ( - 2022-2 4 season) 2023 Influenza (Flu) vaccine (1 o f 1 - Influenza standard series) 05/26/2024 Colonoscopy 10/26/2026 10/26/2016, 02/09/2016, 02/06/2013, Additional history exists Colorectal Cancer Screening 10/26/2026 Sigmoidoscopy (10 year) with FIT yearly 10/26/2026 10/26/2016, 10/26/2016, 02/06/2013, Additional history exists Procedures Procedure Name Priority Date/Time Associated Diagnosis Comments COMPREHENSIVE METABOLIC PANEL Routine 01/23/2019 10:43 AM EDT Fatigue, unspecified type Sjogren's syndrome, with unspecified organ involvement COLONOSCOPY Routine 10/26/2016 11:38 AM EST from Last 3 Months or Most Recently Relevant to Health Maintenance Results * Comprehensive metabolic panel (non-fasting) (01/23/2019 10:43 AM EDT) Glucose 84 65 - 199 mg/dL [facility] Comment:Diabetes: >=200 mg/d L plus symptoms Blood Urea Nitrogen 17 8 - 18 mg/dL [facility] Creatinine 0.86 0.70 - 1.20 mg/dL [facility] Sodium 142 135 - 145 mmol/L [facility] Potassium 4.2 3.5 - 5.0 mmol/L [facility] Comment: Please note: ??Patients with WBC >100,000 may have falsely elevated Potassium levels. ??For accurate Potassium quantification in these patients send serum separator tube (gold top) for subsequent determinations. ??Contact the Clinical Chemistry Laboratory if there are any questions. Chloride 105 98 - 107 mmol/L [facility] Carbon Dioxide 28 22 - 31 mmol/L [facility] Anion Gap 9 5 - 15 mmol/L [facility] Calcium 9.5 8.5 - 10.5 mg/dL [facility] Protein, Total 7.5 6.1 - 8.0 gm/dL [facility] Albumin 4.3 3.2 - 5.2 gm/dL [facility] Aspartate Aminotransferase 17 0 - 30 unit/L [facility] Alanine Aminotransferase 17 0 - 30 unit/L [facility] Alkaline Phosphatase 104 40 - 104 unit/L [facility] Bilirubin, Total 0.3 0.2 - 1.3 mg/dL [facility] Est Glomerular Filtration Rate 74 >=60 mL/min/1. 73 m?? [facility] Comment: The eGFR was calculated using the CKD-EPI equation. As with all creatinine based estimates of kidney function, eGFR values calculated with the CKD-EPI equation are not accurate in patients with acute kidney failure, extremes of body mass or the acutely ill. [email or web address]/[email or web address] eGFR 86 >=60 mL/min/1. 73 m?? [facility] Comment: The eGFR was calculated using the CKD-EPI equation. As with all creatinine based estimates of kidney function, eGFR values calculated with the CKD-EPI equation are not accurate in patients with acute kidney failure, extremes of body mass or the acutely ill. [email or web address] Blood specimen (specimen) 01/23/2019 10:43 AM EDT 01/23/2019 10:53 AM EDT Narrative Resulting Agency Comment Spec In Lab Patty Hebert MD CHEMISTRY ORDERABLES [facility] [place] [address] * COLONOSCOPY (10/26/2016 11:38 AM EST) COLONOSCOPY [facility] Endoscopy Procedure Date: 10/26/2016 11:38 AM ? Patient Name: Ai Morrison ? Date of : 1960 ? Age: 56 ? Order #: [id number] ? Instrument Name: [id number] ? Procedure: ? Colonoscopy Indications: ? S/p diverticulitis Providers: ? Keyon Cantu MD, Leeanna Richards ? DANIEL Villanueva, Severo Post MD: ?Anthony Samaniego MD Medicines: ? Midazolam 4 mg IV, Fentanyl 200 ? micrograms IV Complications: ? No immediate complications. Procedure: ? The procedure, indications, benefits, ? risks and alternatives were explained ? to the patient. Specifically ? discussed were potential ? complications including, but not ? limited to, bleeding, perforation, ? infection, missing a cancer, and ? adverse medication reactions. The ? patient was placed in the left ? lateral decubitus position, and a ? digital rectal exam was performed. ? The Colonoscope was inserted in the ? anus and under direct visualization, ? advanced to the terminal ileum. ? Careful inspection was made as the ? colonoscope was withdrawn. The ? colonoscopy was performed without ? difficulty. The patient tolerated the ? procedure well. The quality of the ? bowel preparation was evaluated using ? the BBPS ([place] Bowel Preparation ? Scale) with scores of: Right Colon = ? 3, Transverse Colon = 3 and Left ? Colon = 3 (entire mucosa seen well ? with no residual staining, small ? fragments of stool or opaque liquid). ? The total BBPS score equals 9. Scope ? withdrawal time was 11 minutes. ? Findings: ? Multiple small and large-mouthed diverticula were ? found in the sigmoid colon and descending colon. ? The terminal ileum appeared normal. ? Internal hemorrhoids were found during retroflexion. ? The hemorrhoids were medium-sized. ? The perianal and digital rectal examinations were ? normal. ? Impression: ?- Diverticulosis in the sigmoid colon ? and in the descending colon. ? - The examined portion of the ileum ? was normal. ? - Internal hemorrhoids. ? - No specimens collected. Recommendation: ?- Repeat colonoscopy in 10 months for ? surveillance ? Attending Participation: ? I personally performed the entire procedure. I was ? present during the intraservice time as documented by ? the sedation RN. ? _ Keyon Cantu MD 10/26/2016 12:29:56 PM This report has been signed electronically. Number of Addenda: 0 Note Initiated On: 10/26/2016 11:38 AM PROVATION 10/26/2016 11:3 8 AM EST Anthony Samaniego MD GENERAL SURGICAL ORDERABLES [employer] from Last 3 Months or Most Recently Relevant to Health Maintenance Care Teams Hot Mix Operator Relationship Specialty Start Date End Date Anthony Samaniego MD [address] [place] [address] PCP - General 07/16/14
--- OUTSIDE RECORDS SUMMARY | 2024-05-17 08:42 | XMS_ITS | Encounter Summary ---
[place] [address] Care Team Providers Care Collar Setter Overlock Name Role Phone Anthony Samaniego MD Primary Care Provider [phone] [phone] Reason for Visit * Reason Onset Date Comments Medication Refill 07/31/2023 Encounter Details Date Type Department Care Team (Late st Contact Info) Description 07/31/2023 [place] [address] Benny Solano MD [facility] [place] [address] Social History Tobacco Use Types Packs/Day Years [...] 10:30 AM EST Office [place] [address] Benny Solano MD [facility] [place] [address] documented as of this encounter Visit Diagnoses Not on filedocumented in this encounter Care Teams Collar Setter Overlock Relationship Specialty Start Date End Date Anthony Samaniego MD [address] [place] [address] [address] [place] [address] PCP - General 07/16/14 documented as of this encounter
--- OUTSIDE RECORDS SUMMARY | 2024-05-17 08:42 | XMS_ITS | Encounter Summary ---
[place] [address] Care Team Providers Care Iphone Developer Name Role Phone Anthony Samaniego MD Primary Care Provider [phone] [phone] Reason for Visit * Reason Comments Medication Refill Encounter Details Date Type Department Care Team (Late Contact Info) Description 08/23/2023 [place] [address] Benny Solano MD [facility] [place] [address] Chronic pain of both shoulders; Rotator cuff [...] 10:30 AM EST Office [place] [address] Benny Solano MD [facility] [place] [address] documented as of this encounter Visit Diagnoses Diagnosis Chronic pain of both shoulders Pain in joint, shoulder region Rotator cuff tendinitis, unspecified laterality Chronic bilateral low back pain without sciatica documented in this encounter Care Teams Iphone Developer Relationship Specialty Start Date End Date Anthony Samaniego MD [address] [place] [address] PCP - General 07/16/14 documented as of this encounter
--- OUTSIDE RECORDS SUMMARY | 2024-05-17 08:42 | XMS_ITS | Encounter Summary ---
[place] [address] Care Team Providers Care Director Rehabilitation Program Name Role Phone Anthony Samaniego MD Primary Care Provider [phone] [phone] Reason for Visit * Reason Onset Date Comments Medication Refill 04/24/2023 Encounter Details Date Type Department Care Team (Late st Contact Info) Description 04/24/2023 Ref[place] [address] Benny Solano MD [facility] [place] [address] Social History Tobacco Use Types Packs/Day Years [...] documented as of this encounter Miscellaneous Notes * Telephone Encounter - Tanvi Reese RN - 04/24/2023 4:03 PM EDT Refill request received for cevimeline, last ordered 12/07/22, 30mg, 1 PO tid, disp 90, 6 RF's Last labs 12/28/22 GONZALEZ 01/17/23, next scheduled for 07/18/23 Sjogren (SS) - Serologies negative. Positive minor salivary gland biopsy for Sjogren's in May 2018 specific labs and monitoring -reviewed no concerning signs - reviewed prope dry and dry mouth management Continue conservative measures including preservative-free artificial tears, flaxseed oil, Frequent sips of water, Biotene mouthwash/spray, prescription toothpaste. Cont cevimeline 30 mg tid (patient can start with once or twice and see how she does) discussed about the side effects. documented in this encounter Plan of Treatment Upcoming Encounters Date Type Department Care Team (Late st Contact Info) Description 08/02/2024 10:30 AM EST Office [place] [address] Benny Solano MD [facility] [place] [address] documented as of this encounter Visit Diagnoses Not on filedocumented in this encounter Care Teams Director Rehabilitation Program Relationship Specialty Start Date End Date Anthony Samaniego MD [address] [place] [address] PCP - General 07/16/14 documented as of this encounter
--- OUTSIDE RECORDS SUMMARY | 2024-05-17 08:42 | XMS_ITS | Encounter Summary ---
[place] [address] Care Team Providers Care Gallery Assistant Name Role Phone Anthony Samaniego MD Primary Care Provider [phone] [phone] Reason for Visit * Reason Comments Medication Refill Encounter Details Date Type Department Care Team (Late Contact Info) Description 09/30/2023 Ref[place] [address] Benny Solano MD [facility] [place] [address] Sjogren's syndrome, with unspecified organ involvement; Dry [...] 10:30 AM EST Office [place] [address] Benny Solano MD [facility] [place] [address] documented as of this encounter Visit Diagnoses Diagnosis Sjogren's syndrome, with unspecified organ involvement Dry eyes Tear film insufficiency, unspecified Sicca syndrome documented in this encounter Care Teams Gallery Assistant Relationship Specialty Start Date End Date Anthony Samaniego MD [address] [place] [address] PCP - General 07/16/14 documented as of this encounter
--- OUTSIDE RECORDS SUMMARY | 2024-05-17 08:42 | XMS_ITS | Encounter Summary ---
[place] [address] Care Team Providers Care Cement Side Laster Name Role Phone Anthony Samaniego MD Primary Care Provider [phone] Reason for Visit * Reason Comments Medication Refill Encounter Details Date Type Department Care Team (Late Contact Info) Description 12/22/2023 [place] [address] Benny Solano MD [facility] [place] [address] High risk medication use; Dry eyes; Vitamin D deficiency; Inflammatory arthropathy; Dry mouth Social History Tobacco [...] 10:30 AM EST [place] [address] Benny Solano MD [facility] [place] [address] documented as of this encounter Visit Diagnoses Diagnosis High risk medication use Encounter for long-term (current) use of other medications Dry eyes Tear film insufficiency, unspecified Vitamin D deficiency Unspecified vitamin D deficiency Inflammatory arthropathy Arthropathy, unspecified, site unspecified Dry mouth Disturbance of salivary secretion documented in this encounter Care Teams Cement Side Laster Relationship Specialty Start Date End Date Anthony Samaniego MD [address] [place] [address] PCP - General 07/16/14 documented as of this encounter
--- OUTSIDE RECORDS SUMMARY | 2024-05-17 08:42 | XMS_ITS | Encounter Summary ---
[place] [address] Care Team Providers Care Garbage Collection Supervisor Name Role Phone Anthony Samaniego MD Primary Care Provider [phone] Reason for Visit * Reason Comments Medication Refill Encounter Details Date Type Department Care Team (Late Contact Info) Description 04/28/2024 Ref[place] [address] Benny Solano MD [facility] [place] [address] Sjogren's syndrome, with unspecified organ involvement; Dry [...] 10:30 AM EST Office [place] [address] Benny Solano MD [facility] [place] [address] documented as of this encounter Visit Diagnoses Diagnosis Sjogren's syndrome, with unspecified organ involvement Dry eyes Tear film insufficiency, unspecified Sicca syndrome documented in this encounter Care Teams Garbage Collection Supervisor Relationship Specialty Start Date End Date Anthony Samaniego MD [address] [place] [address] PCP - General 07/16/14 documented as of this encounter
--- OUTSIDE RECORDS SUMMARY | 2024-05-17 08:42 | XMS_ITS | Encounter Summary ---
[place] [address] Care Team Providers Care Medical Records Field Technician Name Role Phone Anthony Samaniego MD Primary Care Provider [phone] [phone] Reason for Visit * Reason Onset Date Comments Medication Refill 11/01/2023 Encounter Details Date Type Department Care Team (Late Contact Info) Description 11/01/2023 [place] [address] Benny Solano MD [facility] [place] [address] Sjogren's syndrome, with unspecified organ involvement; Dry [...] 10:30 AM EST Office [place] [address] Benny Solano MD [facility] [place] [address] documented as of this encounter Visit Diagnoses Diagnosis Sjogren's syndrome, with unspecified organ involvement Dry eyes Tear film insufficiency, unspecified Sicca syndrome documented in this encounter Care Teams Medical Records Field Technician Relationship Specialty Start Date End Date Anthony Samaniego MD [address] [place] [address] PCP - General 07/16/14 documented as of this encounter
--- OUTSIDE RECORDS SUMMARY | 2024-05-17 08:42 | XMS_ITS | Encounter Summary ---
Author Organization [facility] [place] [address] Care Team Providers Care Materials Handling Coordinator Name Role Phone Anthony Samaniego MD Primary Care Provider [phone] [phone] Encounter Details Date Type Department Care Team (Latest Contact Info) Description 02/05/2024 Travel Social History Tobacco Use Types Packs/Day [...] 10:30 AM EST Office [place] [address] Benny Solano MD [facility] [place] [address] documented as of this encounter Visit Diagnoses Not on filedocumented in this encounter Care Teams Materials Handling Coordinator Relationship Specialty Start Date End Date Anthony Samaniego MD [address] [place] [address] PCP - General 07/16/14 documented as of this encounter
--- OUTSIDE RECORDS SUMMARY | 2024-05-17 08:42 | XMS_ITS | Encounter Summary ---
[place] [address] Care Team Providers Care Wind Turbine Electrical Engineer Name Role Phone Anthony Samaniego MD Primary Care Provider [phone] [phone] Encounter Details Date Type Department Care Team (Late st Contact Info) Description 01/19/2024 [place] [address] Tammy Burks RN Social History Tobacco Use Types Packs/Day Years [...] encounter Miscellaneous Notes * Telephone Encounter - Tammy Burks RN - 01/19/2024 2:59 PM EDT Copied from [facility] #[id number]. Topic: Specialty Dept CRMs - Orders >> Jan 19, 2024 2:55 PM Windy Storey wrote: Orders Request Specialist: Benny Solano Relationship (if other than patient-full name): self Type of Request: [x] Send orders Type/Name of Order: Labs If Labs and Imaging list name of specific test(s): 07/18/23 standing lab orders Date of Lab/Imaging/Testing Appt: 01/26/24 Date of Provider Appt: 02/05/24 Appt Type with Provider: FUV Patient Requesting to Have Orders Sent to Facility Outside of [facility]: Yes If Yes, Name of Facility: [facility] Address: [facility] Phone #: [phone] Fax #: documented in this encounter Plan of Treatment Upcoming Encounters Date Type Department Care Team (Late st Contact Info) Description 08/02/2024 10:30 AM EST [place] [address] Benny Solano MD [facility] [place] [address] documented as of this encounter Visit Diagnoses Not on filedocumented in this encounter Care Teams Wind Turbine Electrical Engineer Relationship Specialty Start Date End Date Anthony Samaniego MD [address] [facility] [place] [address] PCP - General 07/16/14 documented as of this encounter
--- OUTSIDE RECORDS SUMMARY | 2024-05-17 08:42 | XMS_ITS | Encounter Summary ---
[place] [address] Care Team Providers Care Night Worker Name Role Phone Anthony Samaniego MD Primary Care Provider [phone] [phone] Reason for Visit * Reason Comments New Med Request Encounter Details Date Type Department Care Team (Late Contact Info) Description 04/21/2024 [place] [address] Benny Solano MD [facility] [place] [address] Chronic pain of both shoulders; Rotator cuff [...] 10:30 AM EST Office [place] [address] Benny Solano MD [facility] [place] [address] documented as of this encounter Visit Diagnoses Diagnosis Chronic pain of both shoulders Pain in joint, shoulder region Rotator cuff tendinitis, unspecified laterality Chronic bilateral low back pain without sciatica documented in this encounter Care Teams Night Worker Relationship Specialty Start Date End Date Anthony Samaniego MD [address] [place] [address] PCP - General 07/16/14 documented as of this encounter
--- OUTSIDE RECORDS SUMMARY | 2024-05-17 08:42 | XMS_ITS | Encounter Summary ---
[place] [address] Care Team Providers Care Veterinary Microbiologist Name Role Phone Anthony Samaniego MD Primary Care Provider [phone] [phone] Reason for Visit * Reason Comments Medication Refill Encounter Details Date Type Department Care Team (Late Contact Info) Description 11/21/2023 [place] [address] Benny Solano MD [facility] [place] [address] Sjogren's syndrome, with unspecified organ involvement; Dry [...] 10:30 AM EST [place] [address] Benny Solano MD [facility] [place] [address] documented as of this encounter Visit Diagnoses Diagnosis Sjogren's syndrome, with unspecified organ involvement Dry eyes Tear film insufficiency, unspecified Sicca syndrome documented in this encounter Care Teams Veterinary Microbiologist Relationship Specialty Start Date End Date Anthony Samaniego MD [address] [place] [address] PCP - General 07/16/14 documented as of this encounter
--- OUTSIDE RECORDS SUMMARY | 2024-05-17 08:42 | XMS_ITS | Encounter Summary ---
[place] [address] Care Team Providers Care Cra Name Role Phone Anthony Samaniego MD Primary Care Provider [phone] Reason for Visit * Reason Comments New Med Request Encounter Details Date Type Department Care Team (Late Contact Info) Description 02/14/2024 [place] [address] Benny Solano MD [facility] [place] [address] Sjogren's syndrome, with unspecified organ involvement; Dry [...] 10:30 AM EST Office [place] [address] Benny Solano MD [facility] [place] [address] documented as of this encounter Visit Diagnoses Diagnosis Sjogren's syndrome, with unspecified organ involvement Dry eyes Tear film insufficiency, unspecified Sicca syndrome documented in this encounter Care Teams Cra Relationship Specialty Start Date End Date Anthony Samaniego MD [address] [place] [address] PCP - General 07/16/14 documented as of this encounter
--- OUTSIDE RECORDS SUMMARY | 2024-05-17 08:42 | XMS_ITS | Encounter Summary ---
[place] [address] Care Team Providers Care Asbestos Removal Worker Name Role Phone Anthony Samaniego MD Primary Care Provider [phone] Reason for Referral * Diagnostic Test (Routine) - New Request Specialty Diagnoses / Procedures Referred By Lindsey varghese Referred To Contact Cardiology Diagnoses Sjogren's syndrome, with unspecified organ involvement Newly recognized heart murmur Procedures Echocardiogram Transthoracic Benny Solano MD [facility] [place] [address] Referral ID Status Reason Start Date Expiration Date Visits Requested Visits Authorized [id number] New Request Specialty Service Requested 02/05/2024 08/03/2024 1 1 Encounter Details Date Type Department Care Team (Late st Contact Info) Description 02/05/2024 8:00 AM EDT Office [place] [address] Benny Solano MD [facility] [place] [address] Sjogren's syndrome, with unspecified organ involvement; Newly recognized heart murmur; Elevated MCV Social History Tobacco Use Types Packs/Day Years [...] 02/05/2024 7:50 AM ED T Respiratory Rate - - Oxygen Saturation 100% 02/05/2024 7:50 AM EDT Inhaled Oxygen Concentration - - Weight 84.9 kg (187 lb 3.2 oz) 02/05/2024 7:50 A M EDT Height - - Body Mass Index 34.24 10/11/2022 8:49 AM EST documented in this encounter Progress Notes * Benny Solano MD - 02/05/2024 8:00 AM EDT Rheumatology Follow-up Note Rheum hx Celiac Dz Sj??gren???s Syndrome + lip BX SS - on HCQ Trialed turmeric Interval History: Ai Morrison 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 She is scheduled to see a surgeon for a lymph node under the axilla on the lft. The left side recent mammogram within normal limits. She denies night sweats or unexplained weight loss. She still battling with shoulder hip and ankle pains without synovitis current with activity. Tried meloxicam 7 such did not find it very helpful does best with ibuprofen. Does not take any Tylenol but with consider adding it at a low dose. 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 She is taking gabapentin 2 in the morning 2 in the afternoon and 3 at night and we will try to taper. Is up-to-date on eye exams. Takes about volume when she needs it. She rarely uses Flexeril. She has history of melanoma and is followed by dermatology. It she denies any swollen glands parotids, Raynaud's, pleuritis, depression, chronic pain, eye redness, joint swelling, unexplained weight loss or night sweats Positive weight gain Review of Systems Rheumatic history (x) means [...] smoker. 1 drink per week. 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 Family Hx: PGM had RA. Mother had brain aneurysms, from COPD. Also had colon cancer. Sister has vasculitis. Physical exam Patient Vitals for the past 24 hrs: Temp Pulse BP SpO2 02/05/24 0750 36.6 ??C (97.9 ??F) 61 139/73 100 % General: , NAD HEENT: Mucous membranes are moist good pooling , no oral mucosal ulcerations, temporal artery non-palpable, No LAD Cardiovascular: RR, soft murmur in the aortic also possibly Lungs: Clear to auscultation bilaterally Abdomen: Soft, [...] (40-104) Folic acid vitamin B12 AME (ESTRELLA) COTTON GINNER HELPER 0.9 dsDNA CCP Rx C3-C4 SPEP TSH [...] pelvis with oral and IV contrast at [facility] Oral contrast seen in the stomach [...] level 30 Impression/recommendations: Ai Morrison 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 She is here for follow up fatigue, arthralgias. Sjogren Syndrome - SS- - Serologies negative. Positive minor salivary gland biopsy for Sjogren's inSeptember 2018 -Monitoring labs done no overtly concerning signs - sicca sx: management dry eyes and mouth with cevemline - wellcontrolled sees 3-4 x per year eye docotr 2+ x per year Continue conservative measures including preservative-free artificial tears, flaxseed oil, Frequent sips of water, Biotene mouthwash/spray, prescription toothpaste. Cont cevimeline 30 mg tid (patient can start with once or twice and see how she does) discussed about the side effects. New murmur-will get echo Leukopenia chronic stable without lineage reduction Microcytic without anemia-will check B12 folate thyroid Chronic pain fibromyalgia - continue gabapentin to 900 mg 3 times daily -Recommend over the counter Lidoderm patch for the back pain Patient on ibuprofen reminded to take a PPI and always take on full stomach and had- -500 mg p.o. Tylenol 2 to 3 times a day Highly recommend PT high risk medication HCQ - No SE/AE- [...] as requested. Orders Placed This Encounter Procedures TSH Vitamin B12 Folate, serum Echocardiogram Transthoracic Return in about 6 months (around 08/07/2024). >41 minutes spent in total today documented in this encounter Plan of Treatment Upcoming Encounters Date Type Department Care Team (Late st Contact Info) Description 08/02/2024 10:30 AM EST Office [place] [address] Benny Solano MD [facility] [place] [address] Scheduled Orders Name Type Priority Associated Diagnoses Orde r Schedule TSH Lab Routine Sjogren's syndrome, with unspecified organ involvement Newly recognized heart murmur Elevated MCV Expected: 02/05/2024 (Approximate), Expires: 08/06/2024 Vitamin B12 Lab Routine Sjogren's syndrome, with unspecified organ involvement Newly recognized heart murmur Elevated MCV Expected: 02/05/2024, Expires: 08/06/2024 Folate, serum Lab Routine Sjogren's syndrome, with unspecified organ involvement Newly recognized heart murmur Elevated MCV Expected: 02/05/2024 (Approximate), Expires: 08/06/2024 Echocardiogram Transthoracic Echocardiography Routine Sjogren's syndrome, with unspecified organ involvement Newly recognized heart murmur Expected: 02/05/2024, Expires: 08/06/2024 documented as of this encounter Visit Diagnoses Diagnosis Sjogren's syndrome, with unspecified organ involvement Newly recognized heart murmur Undiagnosed cardiac murmurs Elevated MCV Other abnormality of red blood cells documented in this encounter Care Teams Asbestos Removal Worker Relationship Specialty Start Date End Date Anthony Samaniego MD [address] [place] [address] PCP - General 07/16/14 documented as of this encounter
--- OUTSIDE RECORDS SUMMARY | 2024-05-17 08:42 | XMS_ITS | Encounter Summary ---
[place] [address] Care Team Providers Care Cdl Service Technician Name Role Phone Anthony Samaniego MD Primary Care Provider [phone] Reason for Visit * Reason Onset Date Comments Medication Refill 04/24/2023 Encounter Details Date Type Department Care Team (Late st Contact Info) Description 04/24/2023 [place] [address] Benny Solano MD [facility] [place] [address] Chronic pain of both shoulders; Rotator cuff [...] Miscellaneous Notes * Telephone Encounter - Tanvi Reese, RN - 04/24/2023 3:54 PM EDT Refill request received for advil, last ordered 01/19/23, 800mg, 1 PO bid, disp 60, 3 RF's Last labs 12/28/22 GONZALEZ 01/17/23 Chronic pain fibromyalgia we will increase her gabapentin to 900 mg 3 times daily over the next 3 weeks patient given recommendations -Recommend over the counter Lidoderm patch for the back pain documented in this encounter Plan of Treatment Upcoming Encounters Date Type Department Care Team (Late st Contact Info) Description 08/02/2024 10:30 AM EST Office [place] [address] Benny Solano MD [facility] [place] [address] documented as of this encounter Visit Diagnoses Diagnosis Chronic pain of both shoulders Pain in joint, shoulder region Rotator cuff tendinitis, unspecified laterality Chronic bilateral low back pain without sciatica documented in this encounter Care Teams Cdl Service Technician Relationship Specialty Start Date End Date Anthony Samaniego MD [address] [place] [address] PCP - General 07/16/14 documented as of this encounter
--- OUTSIDE RECORDS SUMMARY | 2024-05-17 08:42 | XMS_ITS | Encounter Summary ---
[place] [address] Care Team Providers Care Banjo Repair Person Name Role Phone Anthony Samaniego MD Primary Care Provider [phone] Reason for Visit * Reason Onset Date Comments Medication Refill 08/23/2023 Encounter Details Date Type Department Care Team ([facility] Contact Info) Description 08/23/2023 [place] [address] Benny Solano MD [facility] [place] [address] Chronic pain of both shoulders; Rotator cuff [...] Upcoming Encounters Date Type Department Care Team ([facility] Contact Info) Description 08/02/2024 10:30 AM EST Office [place] [address] Benny Solano MD [facility] [place] [address] documented as of this encounter Visit Diagnoses Diagnosis Chronic pain of both shoulders Pain in joint, shoulder region Rotator cuff tendinitis, unspecified laterality Chronic bilateral low back pain without sciatica documented in this encounter Care Teams Banjo Repair Person Relationship Specialty Start Date End Date Anthony Samaniego MD [address] [place] [address] PCP - General 07/16/14 documented as of this encounter
--- OUTSIDE RECORDS SUMMARY | 2024-05-17 08:42 | XMS_ITS | Encounter Summary ---
[place] [address] Care Team Providers Care Promotions Manager Name Role Phone Anthony Samaniego MD Primary Care Provider [phone] [phone] Reason for Visit * Reason Onset Date Comments Medication Refill 01/18/2024 Encounter Details Date Type Department Care Team (Late Contact Info) Description 01/18/2024 Refill [place] [address] Benny Solano MD [facility] [place] [address] Sjogren's syndrome, with unspecified organ involvement; Dry [...] 10:30 AM EST Office [place] [address] Benny Solano MD [facility] [place] [address] documented as of this encounter Visit Diagnoses Diagnosis Sjogren's syndrome, with unspecified organ involvement Dry eyes Tear film insufficiency, unspecified Sicca syndrome documented in this encounter Care Teams Promotions Manager Relationship Specialty Start Date End Date Anthony Samaniego MD [address] [place] [address] PCP - General 07/16/14 documented as of this encounter
[2024-05-17 08:43] VITALS: BP 158/96; PULSE 61; RESP 15; TEMP 36.7; O2SAT 98
--- OUTSIDE RECORDS SUMMARY | 2024-05-17 08:43 | XMS_ITS | Encounter Summary ---
[place] [address] Care Team Providers Care Pst Manager Name Role Phone Anthony Samaniego MD Primary Care Provider [phone] [phone] Reason for Visit * Reason Onset Date Comments Medication Refill 02/14/2021 Encounter Details Date Type Department Care Team (Late st Contact Info) Description 02/14/2021 [place] [address] Benny Solano MD [facility] [place] [address] High risk medication use; Inflammatory arthropathy; Vitamin D deficiency; Dry eyes; Dry mouth; Sjogren's syndrome, with unspecified organ involvement; Sicca syndrome Social History Tobacco Use Types [...] 10:30 AM EST Office [place] [address] Benny Solano MD [facility] [place] [address] documented as of this encounter Visit Diagnoses Diagnosis High risk medication use Encounter for long-term (current) use of other medications Inflammatory arthropathy Arthropathy, unspecified, site unspecified Vitamin D deficiency Unspecified vitamin D deficiency Dry eyes Tear film insufficiency, unspecified Dry mouth Disturbance of salivary secretion Sjogren's syndrome, with unspecified organ involvement Sicca syndrome documented in this encounter Care Teams Pst Manager Relationship Specialty Start Date End Date Anthony Samaniego MD [address] [place] [address] PCP - General 07/16/14 documented as of this encounter
--- OUTSIDE RECORDS SUMMARY | 2024-05-17 08:43 | XMS_ITS | Encounter Summary ---
[place] [address] Care Team Providers Care Stereotype Finisher Name Role Phone Anthony Samaniego MD Primary Care Provider [phone] [phone] Reason for Referral * Consultation (Routine) - Specialty Diagnoses / Procedures Referred By Lindsey varghese Referred To Contact Diagnoses Sjogren's syndrome, with unspecified organ involvement Rash Benny Solano MD [facility] [address] Referral ID Status Reason Start Date Expiration Date V isits Requested Visits Authorized [id number] Consult, Test & Treat Non PCP 01/19/2021 07/18/2021 1 1 Encounter Details Date Type Department Care Team (Late st Contact Info) Description 01/19/2021 2:00 PM EDT Office [place] [address] Benny Solano MD [facility] [place] [address] High risk medication use; Inflammatory arthropathy; Sjogren's syndrome, with unspecified organ involvement; Rash Social History Tobacco Use Types Packs/Day Years [...] 36.4 ??C (97.5 ??F) 01/19/2021 1:35 PM ED T Respiratory Rate - - Oxygen Saturation 100% 01/19/2021 1:35 PM EDT Inhaled Oxygen Concentration - - Weight 88.5 kg (195 lb) 01/19/2021 1:35 PM EDT Height 157.5 cm (5' 2.01) 01/19/2021 1:35 PM ED T Body Mass Index 35.66 01/19/2021 1:35 PM EDT documented in this encounter Progress Notes * Benny Solano MD - 01/19/2021 2:00 PM EDT Rheumatology Follow-up Note Rheum hx Celiac Dz Sj??gren???s Syndrome + lip BX SS - on HCQ Trialed turmeric CC peñaloza and knee pain Interval Hx: 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 1 drink per week. 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 Family [...] (40-104) Folic acid vitamin B12 AME (ESTRELLA) AUTOMOTIVE SALES MANAGER 0.9 dsDNA CCP Rx C3-C4 SPEP TSH [...] pelvis with oral and IV contrast at [facility] Oral contrast seen in the stomach through [...] a 61 y.o. 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 Given vaginal dryness she would like to take 3 times daily. Reportedly patient [...] 10:30 AM EST [place] [address] Benny Solano MD [facility] [address] Scheduled Referrals Name Type Priority Associated Diagnoses Orde r Schedule Referral to Dermatology Outpatient Referral Routine Sjogren's syndrome, with unspecified organ involvement Rash Ordered: 01/19/2021 documented as of this encounter Visit Diagnoses Diagnosis High risk medication use Encounter for long-term (current) use of other medications Inflammatory arthropathy Arthropathy, unspecified, site unspecified Sjogren's syndrome, with unspecified organ involvement Rash Rash and other nonspecific skin eruption documented in this encounter Care Teams Stereotype Finisher Relationship Specialty Start Date End Date Anthony Samaniego MD [address] [place] [address] PCP - General 07/16/14 documented as of this encounter
--- OUTSIDE RECORDS SUMMARY | 2024-05-17 08:43 | XMS_ITS | Encounter Summary ---
[place] [address] Care Team Providers Care Optical Engineering Technician Name Role Phone Anthony Samaniego MD Primary Care Provider [phone] Reason for Referral * Physical Therapy (Routine) - Closed Specialty Diagnoses / Procedures Referred By Lindsey varghese Referred To Contact Diagnoses Chronic pain of both shoulders Rotator cuff tendinitis, unspecified laterality Chronic bilateral low back pain without sciatica Benny Solano MD [facility] [place] [address] Referral ID Status Reason Start Date Expiration Date V isits Requested Visits Authorized [id number] Closed Evaluate and Treat Non PCP 11/26/2021 05/25/2022 12 12 Encounter Details Date Type Department Care Team (Late st Contact Info) Description 11/26/2021 10:30 AM EST [place] [address] Benny Solano MD [facility] [place] [address] High risk medication use; Inflammatory arthropathy; Sjogren's syndrome, with unspecified organ involvement; Dry eyes; Vitamin D deficiency; Dry mouth; Medication monitoring encounter; Sicca syndrome; Chronic pain of both shoulders; [...] 36.6 ??C (97.8 ??F) 11/26/2021 10:[address] Respiratory Rate - - Oxygen Saturation 100% 11/26/2021 10:02 AM EST Inhaled Oxygen Concentration - - Weight 82.6 kg (182 lb) 11/26/2021 10:02 AM EST Height 157.5 cm (5' 2) 11/26/2021 10:02 AM EST Body Mass Index 33.29 11/26/2021 10:02 AM EST documented in this encounter Progress Notes * Benny Solano MD - 11/26/2021 10:30 AM EST Rheumatology Follow-up Note Rheum hx Celiac Dz Sj??gren???s Syndrome + lip BX SS - on HCQ Trialed turmeric Interval Hx: 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 Family Hx: PGM [...] (40-104) Folic acid vitamin B12 AME (ESTRELLA) SUBSTATION OPERATOR CONVERSION 0.9 dsDNA CCP Rx C3-C4 SPEP TSH [...] pelvis with oral and IV contrast at [facility] Oral contrast seen in the stomach [...] a 61 y.o. 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 She is here for follow up fatigue, arthralgias. Shoulder pain treated for right Dx bursitis by PCP- s/p oinjection over the summer not imporving chairman emeritus- occupational issues- Xr shows AC and GH arthritis and apparent on exam today most consistent with rotator cuff tendinopathy referral to physical therapy discussed potentially getting inject ion in the future r-she would prefer to [...] to complete labsand eye examinations as requested. Dicussed high risk medication Benefits, risks and potential side effects of Methotrexate were discussed including fatigue, mouth sores, nausea, hair thinning, liver and bone marrow effects requiring periodic blood work. A rare allergic pulmonary reaction can also take place. If appropriate, avoidance of was discussed as methotrexate can cause anomalies or loss. The patient was advised to use effective methods of contraception while taking methotrexate, limit alcohol intake and hold medication for antibiotic therapy for an infection. The patient is aware [...] 10:30 AM EST Office [place] [address] Benny Solano MD [facility] [place] [address] Scheduled Referrals Name Type Priority Associated Diagnoses Orde r Schedule Referral to Physical Therapy Outpatient Referral Routine Chronic pain of both shoulders Rotator cuff tendinitis, unspecified laterality Chronic bilateral low back pain without sciatica Ordered: 11/26/2021 documented as of this encounter Visit Diagnoses Diagnosis High risk medication use Encounter for long-term (current) use of other medications Inflammatory arthropathy Arthropathy, unspecified, site unspecified Sjogren's syndrome, with unspecified organ involvement Dry eyes Tear film insufficiency, unspecified Vitamin D deficiency Unspecified vitamin D deficiency Dry mouth Disturbance of salivary secretion Medication monitoring encounter Encounter for therapeutic drug monitoring Sicca syndrome Chronic pain of both shoulders Pain in joint, shoulder region Rotator cuff tendinitis, unspecified laterality Chronic bilateral low back pain without sciatica documented in this encounter Care Teams Optical Engineering Technician Relationship Specialty Start Date End Date Anthony Samaniego MD [address] [facility] [place] [address] PCP - General 07/16/14 documented as of this encounter
--- OUTSIDE RECORDS SUMMARY | 2024-05-17 08:43 | XMS_ITS | Encounter Summary ---
[place] [address] Care Team Providers Care Grocery Clerk Marking Name Role Phone Anthony Samaniego MD Primary Care Provider [phone] Encounter Details Date Type Department Care Team (Latest Contact Info) Description 10/25/2021 7:30 AM EST TH Visit (TeleHealth) [place] [address] Benny Solano MD [facility] [place] [address] Dry eyes; Sjogren's syndrome, with unspecified organ involvement; Sicca syndrome; High risk medication use; Inflammatory arthropathy; Medication monitoring encounter; Osteoarthritis of right ankle, unspecified osteoarthritis type; Chronic pain of both shoulders; Pain in both hands; Low serum vitamin D Social History Tobacco Use Types Packs/Day [...] documented as of this encounter Progress Notes * Benny Solano MD - 10/25/2021 7:30 AM EST Rheumatology Follow-up Note Rheum hx Celiac Dz Sj??gren???s Syndrome + lip BX SS - on HCQ Trialed turmeric CC peñaloza and knee pain Interval Hx: 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 Patient described mild degree of bilateral shoulder pain over the past 2 months worse in the AM. The pain is worse when she lies on her shoulder which is across. 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 She is taking ibuprofen 2-3 times a day. She cannot tolerate gabapentin more than twice aday. She has never tried Lyrica. She denies [...] chills no lymphadenopathy no nausea, no vomiting, nodiarrhea., Heartburn, holding onto fluid, pelvic hip or lower back pain, no rashes, no blood in thestool, no blood in the urine. She is never discussed methotrexate. She discussed that she does have a wood-burning stove in her house is dry but dry eyes dry mouth has not been a problem she does not have [...] smoker. 1 drink per week. 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 Family Hx: [...] (40-104) Folic acid vitamin B12 AME (ESTRELLA) PST MANAGER 0.9 dsDNA CCP Rx C3-C4 SPEP [...] pelvis with oral and IV contrast at [facility] Oral contrast seen in the stomach [...] a 61 y.o. 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 She is here for follow up fatigue, arthralgias. 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 [...] QuantiFERON-TB Gold ??? HIV Screen, 4th Generation ([facility]/CGP/APD/NLH) ??? Urinalysis without microscopic ??? Comprehensive metabolic [...] 10:30 AM EST Office Visit Rheumatology at [facility] [place] [address] Benny Solano MD [facility] [place] [address] documented as of this encounter Visit Diagnoses Diagnosis Dry eyes Tear film insufficiency, unspecified Sjogren's syndrome, with unspecified organ involvement Sicca syndrome High risk medication use Encounter for long-term (current) use of other medications Inflammatory arthropathy Arthropathy, unspecified, site unspecified Medication monitoring encounter Encounter for therapeutic drug monitoring Osteoarthritis of right ankle, unspecified osteoarthritis type Chronic pain of both shoulders Pain in joint, shoulder region Pain in both hands Low serum vitamin D documented in this encounter Care Teams Grocery Clerk Marking Relationship Specialty Start Date End Date Anthony Samaniego MD [address] [place] [address] PCP - General 07/16/14 documented as of this encounter
--- OUTSIDE RECORDS SUMMARY | 2024-05-17 08:43 | XMS_ITS | Encounter Summary ---
[place] [address] Care Team Providers Care Lead Caregiver Name Role Phone Anthony Samaniego MD Primary Care Provider [phone] Encounter Details Date Type Department Care Team (Late st Contact Info) Description 06/02/2022 Telephone [place] [id number] Allie Turner MA Social History Tobacco Use Types Packs/Day Years [...] encounter Miscellaneous Notes * Telephone Encounter - Allie Turner RMA - 06/02/2022 10:45 AM EDT Called patient for pre-charting, no answer. MICHELLE CALDWELL documented in this encounter Plan of Treatment Upcoming Encounters Date Type Department Care Team (Late st Contact Info) Description 08/02/2024 10:30 AM EST Office Visit [place] [address] Benny Solano MD [facility] [place] [address] documented as of this encounter Visit Diagnoses Not on filedocumented in this encounter Care Teams Lead Caregiver Relationship Specialty Start Date End Date Anthony Samaniego MD [address] [place] [address] PCP - General 07/16/14 documented as of this encounter
--- OUTSIDE RECORDS SUMMARY | 2024-05-17 08:43 | XMS_ITS | Encounter Summary ---
[place] [address] Care Team Providers Care Automotive Production Worker Name Role Phone Anthony Samaniego MD Primary Care Provider [phone] Encounter Details Date Type Department Care Team (Late st Contact Info) Description 11/01/2021 12:05 AM EST Ancillary Procedure [place] [id number] Anthony Samaniego MD [address] [facility] 1 [place], [place] [id number] Social History Tobacco Use Types Packs/Day Years [...] 10:30 AM EST Office [place] [address] Benny Solano MD [facility] [place] [address] documented as of this encounter Procedures Procedure Name Priority Date/Time Associated Diagnosis Comments FILM LIBRARY STORAGE ONLY CT SPINE Routine 11/01/2021 12:05 AM EST documented in this encounter Results * Film Library- Storage Only CT Spine (11/01/2021 12:05 AM EST) Narrative [facility] - 11/09/2021 8:47 AM EST This exam is auto-finalizing. It's purpose is for storage only. Anthony Samaniego MD IMG FILM LIBRARY ORDERABLES Performing Organization Address City/State/[facility] Co de Phone Number [place], [place] documented in this encounter Visit Diagnoses Not on filedocumented in this encounter Care Teams Automotive Production Worker Relationship Specialty Start Date End Date Anthony Samaniego MD [address] [place] [address] PCP - General 07/16/14 documented as of this encounter
--- OUTSIDE RECORDS SUMMARY | 2024-05-17 08:43 | XMS_ITS | Encounter Summary ---
[place] [address] Care Team Providers Care Dean Of Students Name Role Phone Anthony Samaniego MD Primary Care Provider [phone] Reason for Visit * Reason Comments Medication Refill Encounter Details Date Type Department Care Team (Late Contact Info) Description 08/01/2021 Refill [place] [address] Benny Solano MD [facility] [place] [address] High risk medication use; Inflammatory arthropathy; Vitamin D deficiency; Dry eyes; Dry mouth Social History Tobacco [...] 10:30 AM EST Office [place] [address] Benny Solano MD [facility] [place] [address] documented as of this encounter Visit Diagnoses Diagnosis High risk medication use Encounter for long-term (current) use of other medications Inflammatory arthropathy Arthropathy, unspecified, site unspecified Vitamin D deficiency Unspecified vitamin D deficiency Dry eyes Tear film insufficiency, unspecified Dry mouth Disturbance of salivary secretion documented in this encounter Care Teams Dean Of Students Relationship Specialty Start Date End Date Anthony Samaniego MD [address] [place] [address] PCP - General 07/16/14 documented as of this encounter
--- OUTSIDE RECORDS SUMMARY | 2024-05-17 08:43 | XMS_ITS | Encounter Summary ---
[place] [address] Care Team Providers Care Electric Motor And Generator Assembler Name Role Phone Anthony Samaniego MD Primary Care Provider [phone] Reason for Visit * Reason Comments Medication Refill Encounter Details Date Type Department Care Team (Late Contact Info) Description 06/03/2021 Ref[place] [address] Benny Solano MD [facility] [place] [address] High risk medication use; Inflammatory arthropathy; Vitamin [...] 10:30 AM EST Office [place] [address] Benny Solano MD [facility] [place] [address] documented as of this encounter Visit Diagnoses Diagnosis High risk medication use Encounter for long-term (current) use of other medications Inflammatory arthropathy Arthropathy, unspecified, site unspecified Vitamin D deficiency Unspecified vitamin D deficiency Dry eyes Tear film insufficiency, unspecified Dry mouth Disturbance of salivary secretion documented in this encounter Care Teams Electric Motor And Generator Assembler Relationship Specialty Start Date End Date Anthony Samaniego MD [address] [place] [address] PCP - General 07/16/14 documented as of this encounter
--- OUTSIDE RECORDS SUMMARY | 2024-05-17 08:43 | XMS_ITS | Encounter Summary ---
Author Organization [facility] [place] [address] Care Team Providers Care District Resource Officer Name Role Phone Anthony Samaniego MD Primary Care Provider [phone] Encounter Details Date Type Department Care Team (Late st Contact Info) Description 09/29/2021 Orders [place] [address] Benny Solano MD [facility] [place] [address] Chronic pain of both shoulders; Dry eyes; Sjogren's syndrome, with unspecified organ involvement Social History Tobacco Use Types Packs/Day Years [...] 10:30 AM EST Office [place] [address] Benny Solano MD [facility] [place] [address] documented as of this encounter Visit Diagnoses Diagnosis Chronic pain of both shoulders Pain in joint, shoulder region Dry eyes Tear film insufficiency, unspecified Sjogren's syndrome, with unspecified organ involvement documented in this encounter Care Teams District Resource Officer Relationship Specialty Start Date End Date Anthony Samaniego MD [address] [place] [address] PCP - General 07/16/14 documented as of this encounter
--- OUTSIDE RECORDS SUMMARY | 2024-05-17 08:43 | XMS_ITS | Encounter Summary ---
Author Organization [facility] [place] [address] Care Team Providers Care Supervisor Pipeline Name Role Phone Anthony Samaniego MD Primary Care Provider [phone] [phone] Encounter Details Date Type Department Care Team (Late st Contact Info) Description 01/17/2023 9:00 AM EDT Office [place] [address] Benny Solano MD [facility] [place] [address] Skin rash; Medication monitoring encounter; High risk medication use; Rash; Dry eyes; Sjogren's syndrome, with unspecified organ [...] Sign Reading Time Taken Comments Blood Pressure 130/70 01/17/2023 8:46 AM EDT Pulse 64 01/17/2023 8:46 AM EDT Temperature 35.8 ??C (96.4 ??F) 01/17/2023 8:46 AM ED T Respiratory Rate 15 01/17/2023 8:46 AM EDT Oxygen Saturation 100% 01/17/2023 8:46 AM EDT Inhaled Oxygen Concentration - - Weight 83.2 kg (183 lb 6.4 oz) 01/17/2023 8:46 A M EDT Height - - Body Mass Index 33.54 10/11/2022 8:49 AM EST documented in this encounter Progress Notes * Benny Solano MD - 01/17/2023 9:00 AM EDT Rheumatology Follow-up Note Rheum hx Celiac Dz Sj??gren???s Syndrome + lip BX SS - on HCQ Trialed turmeric Interval History: Ai Morrison 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 Has been doing well from her dryness standpoint some dry mouth.. she has no joint complaints today recently had a biopsy of her skin Per. dermatology does not have the results to last week.. She denies any swollen glands parotitis Raynaud's, pruritus, myalgia, issues with depression, eye pain, eye redness, joint swelling, weight loss, Her only complaint is she has a plaque-like lesion on her left peñaloza that high about 4 cm x 3 cm dark and raised with erythema underneath she forgot to bring up to her clothing trades workers when she saw them last week. . She scratches a lot describes as pruritic. .. ss Review of Systems Rheumatic history (x) means positive Iritis Dactylitis Pleuritis Pericarditis Oral / Nasal Ulcers PE/DVT Spontaneous Discoid SLE STD Raynaud???s Psoriasis Seizures Anemia Leucopenia Thrombocytopenia Psychosis from a medical condition Review of Systems: X = positive response. Comments are only made for responses that are changed from previous, not discussed in HPI, or otherwise require clarification. Systemic Comments 1. Generalized pain 2. Fatigue/tiredness 3. Fevers 4. Chills 5. Night sweats 6. Recent weight loss 7. Recent Weight gain Head and neck 8. Headaches 9. Neck pain/stiffness 10. Lymphadenopathy 11. Ocular erythema 12. Xerophthalmia 13. Gritty eyes 14. Eye pain 15. Photophobia 16. Oral sores 17. Xerostomia 18. Jaw claudication Cardiopulmonary 19. Chest discomfort 20. Dyspnea 21. Cough 22. Hemoptysis Gastrointestinal 23. Dysphagia 24. Heartburn 25. Nausea 26. Emesis 27. Abdominal pain 28. Hematochezia 29. Diarrhea 30. Constipation Genitourinary 31. Hematuria 32. Dysuria Musculoskeletal 33. Muscle weakness 34. Myalgia 35. Shoulder pain 36. Raynaud's Neuropsychiatric 37. Paresthesia 38. Dysesthesia 39. Dizziness/vertigo 40. Anxiety 41. Depression 42. Cognitive problems 43. Initial insomnia 44. Night awakenings 45. Nonrestorative sleep Dermatologic 46. Xerosis cutis 47. Photosensitivity 48. Rash as above PMH: Celiac disease biopsy-proven, [...] smoker. 1 drink per week. 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 Family Hx: PGM had RA. Mother had brain aneurysms, from COPD. Also had colon cancer. Sister has vasculitis. Physical exam Patient Vitals for the past 24 hrs: Temp Pulse Resp BP SpO2 01/17/23 0846 35.8 ??C (96.4 ??F) 64 15 130/70 100 % General: , NAD HEENT: Mucous [...] (40-104) Folic acid vitamin B12 AME (ESTRELLA) EMERGENCY SERVICES DISPATCHER 0.9 dsDNA CCP Rx C3-C4 SPEP TSH [...] pelvis with oral and IV contrast at [facility] Oral contrast seen in the stomach [...] a 63 y.o. 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 She is here for follow up fatigue, arthralgias. Left peñaloza plaque darkened some scalingwith erythema-unclear if this is a consequence of her Sjogren's or celiac's and possibly darkening secondary to hydroxychloroquine-could this be psoriasis is somewhat scaly but did not find darkening elsewhere is pruritic and the patient scratches quite frequently advised not to do so recommend covering lotions-erythema no evidence of cellulitis or that is spreading so we will try topical mupirocin for about 2 weeks and see benefit advised to follow-up withher clothing trades workers soon as possible- - Shoulder pain - irmproved with PT Lower back pain -doing well Leukopenia -resolved Sjogren (SS) - Serologies negative. Positive minor salivary gland biopsy for Sjogren's in May2018 specific labs and monitoring -reviewed no concerning signs - reviewed prope dry and dry mouth management Continue conservative measures including preservative-free artificial tears, flaxseed oil, Frequent sips of water, Biotene mouthwash/spray, prescription toothpaste. Cont cevimeline 30 mg tid (patient can start with once or twice and see how she does) discussed about the side effects. Chronic pain fibromyalgia we will increase her gabapentin to 900 mg 3 times daily over the next 3 weeks patient given recommendations -Recommend over the counter Lidoderm patch for the back pain Highly recommend PT ABd fullness bloating - SIBO followed by GI is scheduling appt agree and follow up with Twisting Frame Operator high risk medication HCQ - No SE/AE- [...] to complete labsand eye examinations as requested. No orders of the defined types were placed in this encounter. Return in about 6 months (around 07/19/2023) for In Person. >44 minutes spent in total today documented in this encounter Plan of Treatment Upcoming Encounters Date Type Department Care Team (Late st Contact Info) Description 08/02/2024 10:30 AM EST Office [place] [address] Benny Solano MD [facility] [place] [address] documented as of this encounter Visit Diagnoses Diagnosis Skin rash Rash and other nonspecific skin eruption Medication monitoring encounter Encounter for therapeutic drug monitoring High risk medication use Encounter for long-term (current) use of other medications Rash Rash and other nonspecific skin eruption Dry eyes Tear film insufficiency, unspecified Sjogren's syndrome, with unspecified organ involvement Sicca syndrome documented in this encounter Care Teams Supervisor Pipeline Relationship Specialty Start Date End Date Anthony Samaniego MD [address] [facility] 1 [place] [address] PCP - General 07/16/14 documented as of this encounter
--- OUTSIDE RECORDS SUMMARY | 2024-05-17 08:43 | XMS_ITS | Encounter Summary ---
[place] [address] Care Team Providers Care Ui Designer Name Role Phone Anthony Samaniego MD Primary Care Provider [phone] Reason for Visit * Reason Onset Date Comments Medication Refill 10/06/2021 Encounter Details Date Type Department Care Team (Late st Contact Info) Description 10/06/2021 Ref[place] [address] Julio Cesar Muñoz PA [address] [place] [address] Social History Tobacco Use Types Packs/Day Years [...] 10:30 AM EST Office [place] [address] Benny Solano MD [facility] [place] [address] documented as of this encounter Visit Diagnoses Not on filedocumented in this encounter Care Teams Ui Designer Relationship Specialty Start Date End Date Anthony Samaniego MD [address] [place] [address] PCP - General 07/16/14 documented as of this encounter
--- OUTSIDE RECORDS SUMMARY | 2024-05-17 08:43 | XMS_ITS | Encounter Summary ---
[place] [address] Care Team Providers Care Deputy Chief Sheriff Name Role Phone Anthony Samaniego MD Primary Care Provider [phone] [phone] Reason for Visit * Reason Comments Medication Refill Encounter Details Date Type Department Care Team (Late Contact Info) Description 01/25/2021 [place] [address] Benny Solano MD [facility] [place] [address] Dry eyes; Sjogren's syndrome, with unspecified organ [...] 10:30 AM EST [place] [address] Benny Solano MD [facility] [place] [address] documented as of this encounter Visit Diagnoses Diagnosis Dry eyes Tear film insufficiency, unspecified Sjogren's syndrome, with unspecified organ involvement Sicca syndrome documented in this encounter Care Teams Deputy Chief Sheriff Relationship Specialty Start Date End Date Anthony Samaniego MD [address] [place] [address] PCP - General 07/16/14 documented as of this encounter
--- OUTSIDE RECORDS SUMMARY | 2024-05-17 08:43 | XMS_ITS | Encounter Summary ---
[place] [address] Care Team Providers Care Internal Combustion Engineer Name Role Phone Anthony Samaniego MD Primary Care Provider [phone] Encounter Details Date Type Department Care Team (Late st Contact Info) Description 11/23/2021 Orders Only [place] [address] Iva Duran, RN Social History Tobacco Use Types Packs/Day [...] 10:30 AM EST Office Visit [place] [address] Benny Solano MD [facility] [place] [address] documented as of this encounter Visit Diagnoses Not on filedocumented in this encounter Care Teams Internal Combustion Engineer Relationship Specialty Start Date End Date Anthony Samaniego MD [address] [place] [address] PCP - General 07/16/14 documented as of this encounter
--- OUTSIDE RECORDS SUMMARY | 2024-05-17 08:43 | XMS_ITS | Encounter Summary ---
[place] [address] Care Team Providers Care Clerical Administrator Name Role Phone Anthony Samaniego MD Primary Care Provider [phone] Reason for Visit * Reason Onset Date Comments Medication Refill 12/18/2020 Encounter Details Date Type Department Care Team (Late st Contact Info) Description 12/18/2020 Refill [place] [address] Benny Solano MD [facility] [place] [address] Social History Tobacco Use Types Packs/Day Years [...] 10:30 AM EST Office [place] [address] Benny Solano MD [facility] [address] documented as of this encounter Visit Diagnoses Not on filedocumented in this encounter Care Teams Clerical Administrator Relationship Specialty Start Date End Date Anthony Samaniego MD [address] [place] [address] [address] [place] [address] PCP - General 07/16/14 documented as of this encounter
--- OUTSIDE RECORDS SUMMARY | 2024-05-17 08:43 | XMS_ITS | Encounter Summary ---
[place] [address] Care Team Providers Care Mica Builder Name Role Phone Anthony Samaniego MD Primary Care Provider [phone] [phone] Encounter Details Date Type Department Care Team (Late st Contact Info) Description 08/03/2021 Orders Only [place] [address] Benny Solano MD [facility] [place] [address] High risk medication use; Inflammatory arthropathy; Vitamin [...] 10:30 AM EST Office Visit [place] [address] Benny Solano MD [facility] [place] [address] documented as of this encounter Visit Diagnoses Diagnosis High risk medication use Encounter for long-term (current) use of other medications Inflammatory arthropathy Arthropathy, unspecified, site unspecified Vitamin D deficiency Unspecified vitamin D deficiency Dry eyes Tear film insufficiency, unspecified Dry mouth Disturbance of salivary secretion documented in this encounter Care Teams Mica Builder Relationship Specialty Start Date End Date Anthony Samaniego MD [address] [place] [address] PCP - General 07/16/14 documented as of this encounter
--- OUTSIDE RECORDS SUMMARY | 2024-05-17 08:43 | XMS_ITS | Encounter Summary ---
Author Organization [place] [address] Care Team Providers Care Retanned Leather Roller Name Role Phone Anthony Samaniego MD Primary Care Provider +1 [phone] Encounter Details Date Type Department Care Team (Late st Contact Info) Description 09/09/2021 Orders [place] [address] Benny Solano MD [facility] [place] [address] Chronic pain of both shoulders Social History Tobacco Use Types Packs/Day Years [...] 10:30 AM EST Office [place] [address] Benny Solano MD [facility] [place] [address] documented as of this encounter Visit Diagnoses Diagnosis Chronic pain of both shoulders Pain in joint, shoulder region documented in this encounter Care Teams Retanned Leather Roller Relationship Specialty Start Date End Date Anthony Samaniego MD [address] [place] [address] PCP - General 07/16/14 documented as of this encounter
--- OUTSIDE RECORDS SUMMARY | 2024-05-17 08:43 | XMS_ITS | Encounter Summary ---
[place] [address] Care Team Providers Care Student Assistant Name Role Phone Anthony Samaniego MD Primary Care Provider +1 -[phone] Encounter Details Date Type Department Care Team (Late st Contact Info) Description 11/18/2022 Telephone [place] [address] Samantha Frias Social History Tobacco Use Types Packs/Day Years [...] 10:30 AM EST Office [place] [address] Benny Solano MD [facility] [address] [place], [place] [address] documented as of this encounter Visit Diagnoses Not on filedocumented in this encounter Care Teams Student Assistant Relationship Specialty Start Date End Date Anthony Samaniego MD [address] [place] [address] PCP - General 07/16/14 documented as of this encounter
--- OUTSIDE RECORDS SUMMARY | 2024-05-17 08:43 | XMS_ITS | Encounter Summary ---
[place] [address] Care Team Providers Care Pouako Kura Kaupapa Maori Name Role Phone Anthony Samaniego MD Primary Care Provider +1 [phone] Reason for Visit * Reason Onset Date Comments Medication Refill 12/19/2020 Encounter Details Date Type Department Care Team (Late st Contact Info) Description 12/19/2020 [place] [address] Benny Solano MD [facility] [place] [address] High risk medication use; Inflammatory arthropathy; Dry [...] 10:30 AM EST [place] [address] Benny Solano MD [facility] [place] [address] documented as of this encounter Visit Diagnoses Diagnosis High risk medication use Encounter for long-term (current) use of other medications Inflammatory arthropathy Arthropathy, unspecified, site unspecified Dry eyes Tear film insufficiency, unspecified Dry mouth Disturbance of salivary secretion documented in this encounter Care Teams Pouako Kura [place] Maori Relationship Specialty Start Date End Date Anthony Samaniego MD [address] [place] [address] PCP - General 07/16/14 documented as of this encounter
--- OUTSIDE RECORDS SUMMARY | 2024-05-17 08:43 | XMS_ITS | Encounter Summary ---
[place] [address] Care Team Providers Care Fine Chemicals Operator Name Role Phone Anthony Samaniego MD Primary Care Provider +1 [phone] Encounter Details Date Type Department Care Team (Late st Contact Info) Description 11/01/2021 Ancillary Procedure [place] [phone] Anthony Samaniego MD [address] [place], [place] [id number] Social History Tobacco Use Types Packs/Day Years [...] 10:30 AM EST Office [place] [address] Benny Solano MD [facility] [place] [address] documented as of this encounter Procedures Procedure Name Priority Date/Time Associated Diagnosis Comments FILM LIBRARY STORAGE ONLY CT ABDOMEN AND PELVIS Routine 11/01/2021 12:00 AM EST documented in this encounter Results * Film Library- Storage Only CT Abdomen & Pelvis (11/01/2021 12:00 AM EST) Narrative [facility] - 11/09/2021 8:46 AM EST This exam is auto-finalizing. It's purpose is for storage only. Anthony Samaniego MD IMG FILM LIBRARY ORDERABLES Performing Organization Address City/State/[facility] Co de Phone Number [place], [place] documented in this encounter Visit Diagnoses Not on filedocumented in this encounter Care Teams Fine Chemicals Operator Relationship Specialty Start Date End Date Anthony Samaniego MD [address] [place] [address] PCP - General 07/16/14 documented as of this encounter
--- OUTSIDE RECORDS SUMMARY | 2024-05-17 08:43 | XMS_ITS | Encounter Summary ---
Author Organization [facility] [place] [address] Care Team Providers Care Flying Teacher Name Role Phone Anthony Samaniego MD Primary Care Provider +1 [phone] Encounter Details Date Type Department Care Team (Latest Contact Info) Description 01/15/2023 Travel Social History Tobacco Use Types Packs/Day [...] 10:30 AM EST Office [place] [phone] Benny Solano MD [facility] [place] [address] documented as of this encounter Visit Diagnoses Not on filedocumented in this encounter Care Teams Flying Teacher Relationship Specialty Start Date End Date Anthony Samaniego MD [address] [place] [address] PCP - General 07/16/14 documented as of this encounter
--- OUTSIDE RECORDS SUMMARY | 2024-05-17 08:43 | XMS_ITS | Encounter Summary ---
Author Organization [facility] [place] [address] Care Team Providers Care Chromium Plater Name Role Phone Anthony Samaniego MD Primary Care Provider +1 [phone] Encounter Details Date Type Department Care Team (Late st Contact Info) Description 11/19/2020 Orders [place] [address] Benny Solano MD [facility] [place] [address] High risk medication use; Inflammatory arthropathy; Vitamin D deficiency; Sjogren's syndrome, with unspecified organ involvement Social [...] 10:30 AM EST Office [place] [address] Benny Solano MD [facility] [place] [address] documented as of this encounter Visit Diagnoses Diagnosis High risk medication use Encounter for long-term (current) use of other medications Inflammatory arthropathy Arthropathy, unspecified, site unspecified Vitamin D deficiency Unspecified vitamin D deficiency Sjogren's syndrome, with unspecified organ involvement documented in this encounter Care Teams Chromium Plater Relationship Specialty Start Date End Date Anthony Samaniego MD [address] [place] [address] PCP - General 07/16/14 documented as of this encounter
--- OUTSIDE RECORDS SUMMARY | 2024-05-17 08:43 | XMS_ITS | Encounter Summary ---
[place] [address] Care Team Providers Care Customer Care Agent Name Role Phone Anthony Samaniego MD Primary Care Provider +1 [phone] Reason for Visit * Reason Comments Medication Refill Encounter Details Date Type Department Care Team (Late Contact Info) Description 08/09/2022 Ref[place] [address] Benny Solano MD [facility] [place] [address] Chronic pain of both shoulders; Rotator cuff [...] 10:30 AM EST Office [place] [address] Benny Solano MD [facility] [place] [address] documented as of this encounter Visit Diagnoses Diagnosis Chronic pain of both shoulders Pain in joint, shoulder region Rotator cuff tendinitis, unspecified laterality Chronic bilateral low back pain without sciatica documented in this encounter Care Teams Customer Care Agent Relationship Specialty Start Date End Date Anthony Samaniego MD [address] [place] [address] PCP - General 07/16/14 documented as of this encounter
--- OUTSIDE RECORDS SUMMARY | 2024-05-17 08:43 | XMS_ITS | Encounter Summary ---
[place] [address] Care Team Providers Care Sr Technical Sales Consultant Name Role Phone Anthony Samaniego MD Primary Care Provider [phone] [phone] Reason for Visit * Reason Onset Date Comments Medication Refill 08/28/2021 Encounter Details Date Type Department Care Team (Late Contact Info) Description 08/28/2021 [place] [address] Benny Solano MD [facility] [place] [address] Dry eyes; Sjogren's syndrome, with unspecified organ [...] 10:30 AM EST [place] [address] Benny Solano MD [facility] [place] [address] documented as of this encounter Visit Diagnoses Diagnosis Dry eyes Tear film insufficiency, unspecified Sjogren's syndrome, with unspecified organ involvement Sicca syndrome documented in this encounter Care Teams Sr Technical Sales Consultant Relationship Specialty Start Date End Date Anthony Samaniego MD [address] [place] [address] PCP - General 07/16/14 documented as of this encounter
--- OUTSIDE RECORDS SUMMARY | 2024-05-17 08:43 | XMS_ITS | Encounter Summary ---
[place] [address] Care Team Providers Care Auger Supervisor Name Role Phone Anthony Samaniego MD Primary Care Provider [phone] [phone] Reason for Visit * Reason Onset Date Comments Medication Refill 08/01/2021 Encounter Details Date Type Department Care Team (Late st Contact Info) Description 08/01/2021 [place] [address] Benny Solano MD [facility] [place] [address] High risk medication use; Inflammatory arthropathy; Vitamin [...] encounter Miscellaneous Notes * Telephone Encounter - Anamaria Henley - 08/17/2021 1:37 PM EST Spoke with pt, she will call back to schedule F/U * Telephone Encounter - Precious Holder LPN - [...] 10:30 AM EST Office [place] [address] Benny Solano MD [facility] [place] [address] documented as of this encounter Visit Diagnoses Diagnosis High risk medication use Encounter for long-term (current) use of other medications Inflammatory arthropathy Arthropathy, unspecified, site unspecified Vitamin D deficiency Unspecified vitamin D deficiency Dry eyes Tear film insufficiency, unspecified Dry mouth Disturbance of salivary secretion documented in this encounter Care Teams Auger Supervisor Relationship Specialty Start Date End Date Anthony Samaniego MD [address] [place] [address] [address] [facility] [place] [address] PCP - General 07/16/14 documented as of this encounter
--- OUTSIDE RECORDS SUMMARY | 2024-05-17 08:43 | XMS_ITS | Encounter Summary ---
[place] [address] Care Team Providers Care Extension Worker Name Role Phone Anthony Samaniego MD Primary Care Provider [phone] [phone] Encounter Details Date Type Department Care Team (Late st Contact Info) Description 10/10/2022 Telephone [place] [address] Allie Turner MA Social History Tobacco Use [...] Telephone Encounter - Allie Turner RMA - 10/10/2022 12:33 PM EST Called patient for pre-charting, no answer. MICHELLE CALDWELL documented in this encounter Plan of Treatment Upcoming Encounters Date Type Department Care Team (Late st Contact Info) Description 08/02/2024 10:30 AM EST Office Visit [place] [address] Benny Solano MD [facility] [place] [address] documented as of this encounter Visit Diagnoses Not on filedocumented in this encounter Care Teams Extension Worker Relationship Specialty Start Date End Date Anthony Samaniego MD [address] [place] [address] PCP - General 07/16/14 documented as of this encounter
--- OUTSIDE RECORDS SUMMARY | 2024-05-17 08:43 | XMS_ITS | Encounter Summary ---
[place] [address] Care Team Providers Care Tooth Cutter Pinion Name Role Phone Anthony Samaniego MD Primary Care Provider +1 -[phone] Reason for Visit * Reason Comments Medication Refill Encounter Details Date Type Department Care Team (Late Contact Info) Description 11/15/2022 Refill [place] [address] Benny Solano MD [facility] [place] [address] Chronic pain of both shoulders; Rotator cuff [...] 10:30 AM EST Office Visit [place] [address] Benny Solano MD [facility] [place] [address] documented as of this encounter Visit Diagnoses Diagnosis Chronic pain of both shoulders Pain in joint, shoulder region Rotator cuff tendinitis, unspecified laterality Chronic bilateral low back pain without sciatica documented in this encounter Care Teams Tooth Cutter Pinion Relationship Specialty Start Date End Date Anthony Samaniego MD [address] [place] [address] PCP - General 07/16/14 documented as of this encounter
--- OUTSIDE RECORDS SUMMARY | 2024-05-17 08:43 | XMS_ITS | Encounter Summary ---
[place] [address] Care Team Providers Care Instrument Specialist Name Role Phone Anthony Samaniego MD Primary Care Provider +1 -[phone] Encounter Details Date Type Department Care Team (Late st Contact Info) Description 12/29/2020 Telephone [place] [address] Graciela Torres RN Social History Tobacco Use Types Packs/Day [...] encounter Miscellaneous Notes * Telephone Encounter - Graciela Torres RN - 12/29/2020 2:59 PM EDT Rambo Mccarthy MD sent to P [facility] Rheumatology Nurse Covering for Dr. Solano. ??Laboratory tests from [facility] reviewed. ??Very reassuring results. ??No significant abnormalities. ??To be discussed at next appointment with Dr. Solano I sent Ai lopez Peerlyst message. documented in this encounter Plan of Treatment Upcoming Encounters Date Type Department Care Team (Late st Contact Info) Description 08/02/2024 10:30 AM EST Office [place] [address] Benny Solano MD [facility] [address] documented as of this encounter Visit Diagnoses Not on filedocumented in this encounter Care Teams Instrument Specialist Relationship Specialty Start Date End Date Anthony Samaniego MD [address] [place] [address] PCP - General 07/16/14 documented as of this encounter
--- OUTSIDE RECORDS SUMMARY | 2024-05-17 08:43 | XMS_ITS | Encounter Summary ---
Author Organization [facility] [place] [address] Care Team Providers Care Production Control Technologist Name Role Phone Anthony Samaniego MD Primary Care Provider +1 -[phone] Encounter Details Date Type Department Care Team (Latest Contact Info) Description 01/17/2023 Travel Social History Tobacco Use Types Packs/Day [...] 10:30 AM EST Office [place] [address] Benny Solano MD [facility] [place] [address] documented as of this encounter Visit Diagnoses Not on filedocumented in this encounter Care Teams Production Control Technologist Relationship Specialty Start Date End Date Anthony Samainego MD [address] [place] [address] PCP - General 07/16/14 documented as of this encounter
--- OUTSIDE RECORDS SUMMARY | 2024-05-17 08:43 | XMS_ITS | Encounter Summary ---
Author Organization [facility] [place] [address] Care Team Providers Care Surgical Lead Name Role Phone Anthony Samaniego MD Primary Care Provider [phone] [phone] Encounter Details Date Type Department Care Team (Latest Contact Info) Description 06/28/2021 7:30 AM EDT TH Visit (TeleHealth) [place] [address] Benny Solano MD [facility] [place] [address] Medication monitoring encounter; High risk medication use; Dry mouth; Dry eyes; Sicca syndrome; Sjogren's syndrome, with unspecified organ involvement; Osteoarthritis of right ankle, unspecified osteoarthritis type; Chronic pain in right shoulder Social History [...] Progress Notes * Benny Solano MD - 06/28/2021 7:30 AM EDT Rheumatology Follow-up Note Rheum hx Celiac Dz Sj??gren???s Syndrome + lip BX SS - on HCQ Trialed turmeric CC peñaloza and knee pain Interval Hx: 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 1 drink per week. 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 Family [...] (40-104) Folic acid vitamin B12 AME (ESTRELLA) GENETIC PHYSICIAN 0.9 dsDNA CCP Rx C3-C4 SPEP TSH [...] pelvis with oral and IV contrast at [facility] Oral contrast seen in the stomach through [...] a 61 y.o. 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 She is here for follow up fatigue, arthralgias. She had labs at [facility] which she read off to me Macrocytosis w/o anemia and low RBC- unclear etiology but no anemia advised to ofollow up with PCP-Thyroid, ETOH, [id number], MDS and emds Shoulder pain right Dx [...] 10:30 AM EST Office [place] [address] Benny Solano MD [facility] [place] [place] [address] documented as of this encounter Visit Diagnoses Diagnosis Medication monitoring encounter Encounter for therapeutic drug monitoring High risk medication use Encounter for long-term (current) use of other medications Dry mouth Disturbance of salivary secretion Dry eyes Tear film insufficiency, unspecified Sicca syndrome Sjogren's syndrome, with unspecified organ involvement Osteoarthritis of right ankle, unspecified osteoarthritis type Chronic pain in right shoulder Pain in joint, shoulder region documented in this encounter Care Teams Surgical Lead Relationship Specialty Start Date End Date Anthony Samaniego MD [address] [place] [address] PCP - General 07/16/14 documented as of this encounter
--- OUTSIDE RECORDS SUMMARY | 2024-05-17 08:43 | XMS_ITS | Encounter Summary ---
[place] [address] Care Team Providers Care Malariologist Name Role Phone Anthony Samaniego MD Primary Care Provider +1 -[phone] Reason for Visit * Reason Comments Medication Refill Encounter Details Date Type Department Care Team (Late st Contact Info) Description 03/31/2021 [place] [address] Benny Solano MD [facility] [place] [address] Dry eyes; Sjogren's syndrome, with unspecified organ [...] encounter Miscellaneous Notes * Telephone Encounter - Beena Verduzco RN - 04/01/2021 9:49 AM EDT Med requested: Gabapentin GONZALEZ: 01.13.21 NOV: needs 3 month f/u scheduled Last Refill: 02.16.21 documented in this encounter Plan of Treatment Upcoming Encounters Date Type Department Care Team (Late st Contact Info) Description 08/02/2024 10:30 AM EST Office [place] [address] Benny Solano MD [facility] [place] [address] documented as of this encounter Visit Diagnoses Diagnosis Dry eyes Tear film insufficiency, unspecified Sjogren's syndrome, with unspecified organ involvement Sicca syndrome documented in this encounter Care Teams Malariologist Relationship Specialty Start Date End Date Anthony Samaniego MD [address] [place] [address] PCP - General 07/16/14 documented as of this encounter
--- OUTSIDE RECORDS SUMMARY | 2024-05-17 08:43 | XMS_ITS | Encounter Summary ---
[place] [address] Care Team Providers Care Director Of Federal Sales Name Role Phone Anthony Samaniego MD Primary Care Provider [phone] -[phone] Reason for Visit * Reason Comments Medication Refill Encounter Details Date Type Department Care Team (Late Contact Info) Description 07/18/2022 [place] [address] Benny Solano MD [facility] [place] [address] High risk medication use; Inflammatory arthropathy; Vitamin [...] 10:30 AM EST [place] [address] Benny Solano MD [facility] [place] [address] documented as of this encounter Visit Diagnoses Diagnosis High risk medication use Encounter for long-term (current) use of other medications Inflammatory arthropathy Arthropathy, unspecified, site unspecified Vitamin D deficiency Unspecified vitamin D deficiency Dry eyes Tear film insufficiency, unspecified Dry mouth Disturbance of salivary secretion documented in this encounter Care Teams Director Of Federal Sales Relationship Specialty Start Date End Date Anthony Samaniego MD [address] [place] [address] PCP - General 07/16/14 documented as of this encounter
--- OUTSIDE RECORDS SUMMARY | 2024-05-17 08:43 | XMS_ITS | Encounter Summary ---
[place] [address] Care Team Providers Care Apartment Leasing Agent Name Role Phone Anthony Samaniego MD Primary Care Provider +1 -[phone] Encounter Details Date Type Department Care Team (Late st Contact Info) Description 11/19/2020 Telephone [place] [address] Fabiola He Social History Tobacco Use Types Packs/Day Years [...] encounter Miscellaneous Notes * Telephone Encounter - Fabiola He - 11/19/2020 8:30 AM EST Spoke with patient to try and sched a FUV with Dr. Solano - pt interested to do in person appt but needs to review work sched as Dr. Solano only sees in person on - pt stated she'll call back later today documented in this encounter Plan of Treatment Upcoming Encounters Date Type Department Care Team (Late st Contact Info) Description 08/02/2024 10:30 AM EST Office [place] [address] Benny Solano MD [facility] [place] [address] documented as of this encounter Visit Diagnoses Not on filedocumented in this encounter Care Teams Apartment Leasing Agent Relationship Specialty Start Date End Date Anthony Samaniego MD [address] [place] [address] PCP - General 07/16/14 documented as of this encounter
--- OUTSIDE RECORDS SUMMARY | 2024-05-17 08:43 | XMS_ITS | Encounter Summary ---
Author Organization [facility] [place] [address] Care Team Providers Care Photonics Engineer Name Role Phone Anthony Samaniego MD Primary Care Provider +1 [phone] Encounter Details Date Type Department Care Team (Latest Contact Info) Description 10/10/2022 Travel Social History Tobacco Use Types Packs/Day [...] 10:30 AM EST Office [place] [address] Benny Solano MD [facility] [place] [address] documented as of this encounter Visit Diagnoses Not on filedocumented in this encounter Care Teams Photonics Engineer Relationship Specialty Start Date End Date Anthony Samaniego MD [address] [place] [address] PCP - General 07/16/14 documented as of this encounter
--- OUTSIDE RECORDS SUMMARY | 2024-05-17 08:43 | XMS_ITS | Encounter Summary ---
[place] [address] Care Team Providers Care Manufacturing Coordinator Name Role Phone Anthony Samaniego MD Primary Care Provider +1 [phone] Reason for Visit * Reason Onset Date Comments Labs Only 09/29/2021 Encounter Details Date Type Department Care Team (Late st Contact Info) Description 09/29/2021 [place] [phone] Graciela Torres, RN Labs Only Social History Tobacco Use Types Packs/Day Years [...] Miscellaneous Notes * Telephone Encounter - Graciela Torres, RN - 09/29/2021 9:30 AM EST Ai calls about labs at [facility]. RTC and to RTC to nurse or send message via [facility]. Ai calls back and asks for labs to be sent to [facility] and for Q3 months so she does not have to request every time. Lab orders good until . Fabiola He sent to Graciela Torres RN Caller: Unspecified (Yesterday, 12:17 PM) Orders sent to [facility] - Rayna ?? documented in this encounter Plan of Treatment Upcoming Encounters Date Type Department Care Team (Late st Contact Info) Description 08/02/2024 10:30 AM EST Office [place] [address] Benny Solano MD [facility] [place] [address] documented as of this encounter Visit Diagnoses Not on filedocumented in this encounter Care Teams Manufacturing Coordinator Relationship Specialty Start Date End Date Anthony Samaniego MD [address] [place] [address] PCP - General 07/16/14 documented as of this encounter
--- OUTSIDE RECORDS SUMMARY | 2024-05-17 08:43 | XMS_ITS | Encounter Summary ---
[place] [address] Care Team Providers Care Fuse Coiler Name Role Phone Anthony Samaniego MD Primary Care Provider +1 [phone] Reason for Visit * Reason Comments Medication Refill Encounter Details Date Type Department Care Team (Late Contact Info) Description 08/28/2022 Refill [place] [address] Benny Solano MD [facility] [place] [address] Sjogren's syndrome, with unspecified organ involvement; Dry [...] 10:30 AM EST Office [place] [address] Benny Solano MD [facility] [place] [address] documented as of this encounter Visit Diagnoses Diagnosis Sjogren's syndrome, with unspecified organ involvement Dry eyes Tear film insufficiency, unspecified Sicca syndrome documented in this encounter Care Teams Fuse Coiler Relationship Specialty Start Date End Date Anthony Samaniego MD [address] [place] [address] PCP - General 07/16/14 documented as of this encounter
--- OUTSIDE RECORDS SUMMARY | 2024-05-17 08:43 | XMS_ITS | Encounter Summary ---
[place] [address] Care Team Providers Care Card Assembler Name Role Phone Anthony Samaniego MD Primary Care Provider [phone] [phone] Reason for Visit * Reason Onset Date Comments Medication Refill Medication Refill 08/17/2021 Encounter Details Date Type Department Care Team (Late st Contact Info) Description 08/17/2021 [place] [address] Benny Solano MD [facility] [place] [address] Social History Tobacco Use Types Packs/Day Years [...] 10:30 AM EST Office [place] [address] Benny Solano MD [facility] [place] [address] documented as of this encounter Visit Diagnoses Not on filedocumented in this encounter Care Teams Card Assembler Relationship Specialty Start Date End Date Anthony Samaniego MD [address] [place] [address] [address] [place] [address] PCP - General 07/16/14 documented as of this encounter
--- OUTSIDE RECORDS SUMMARY | 2024-05-17 08:43 | XMS_ITS | Encounter Summary ---
[place] [address] Care Team Providers Care Surgical Appliances Salesperson Name Role Phone Anthony Samaniego MD Primary Care Provider +1 [phone] Reason for Visit * Reason Comments Medication Refill Encounter Details Date Type Department Care Team (Late Contact Info) Description 01/13/2022 [place] [address] Benny Solano MD [facility] [place] [address] Social History Tobacco Use Types Packs/Day Years [...] 10:30 AM EST Office [place] [address] Benny Solano MD [facility] [place] [address] documented as of this encounter Visit Diagnoses Not on filedocumented in this encounter Care Teams Surgical Appliances Salesperson Relationship Specialty Start Date End Date Anthony Samaniego MD [address] [place] [address] PCP - General 07/16/14 documented as of this encounter
--- OUTSIDE RECORDS SUMMARY | 2024-05-17 08:43 | XMS_ITS | Encounter Summary ---
[place] [address] Care Team Providers Care Motor Vehicle Licence Examiner Name Role Phone Anthony Samaniego MD Primary Care Provider [phone] [phone] Reason for Visit * Reason Onset Date Comments Medication Refill 08/17/2021 Encounter Details Date Type Department Care Team (Late st Contact Info) Description 08/17/2021 Refill [place] [address] Benny Solano MD [facility] [place] [address] Social History Tobacco Use Types Packs/Day Years [...] 10:30 AM EST Office Visit [place] [address] Benny Solano MD [facility] [place] [address] documented as of this encounter Visit Diagnoses Not on filedocumented in this encounter Care Teams Motor Vehicle Licence Examiner Relationship Specialty Start Date End Date Anthony Samaniego MD [address] [place] [address] [address] [place] [address] PCP - General 07/16/14 documented as of this encounter
--- OUTSIDE RECORDS SUMMARY | 2024-05-17 08:43 | XMS_ITS | Encounter Summary ---
[place] [address] Care Team Providers Care Glass Wool Blanket Machine Feeder Name Role Phone Anthony Samaniego MD Primary Care Provider [phone] [phone] Encounter Details Date Type Department Care Team (Late st Contact Info) Description 06/08/2021 Telephone [place] [address] Fabiola He Social History Tobacco Use Types [...] * Telephone Encounter - Fabiola He - 06/08/2021 3:23 PM EDT VM left with pt to notify them that labs need to be completed per provider documented in this encounter Plan of Treatment Upcoming Encounters Date Type Department Care Team (Late st Contact Info) Description 08/02/2024 10:30 AM EST Office [place] [address] Benny Solano MD [facility] [place] [address] documented as of this encounter Visit Diagnoses Not on filedocumented in this encounter Care Teams Glass Wool Blanket Machine Feeder Relationship Specialty Start Date End Date Anthony Samaniego MD [address] [place] [address] PCP - General 07/16/14 documented as of this encounter
--- OUTSIDE RECORDS SUMMARY | 2024-05-17 08:43 | XMS_ITS | Encounter Summary ---
[place] [address] Care Team Providers Care Stenotypist Name Role Phone Anthony Samaniego MD Primary Care Provider [phone] [phone] Reason for Visit * Reason Onset Date Comments New Medication Request 11/01/2021 Encounter Details Date Type Department Care Team (Late st Contact Info) Description 11/01/2021 [place] [phone] Graciela Torres RN New Medication Request Social History Tobacco Use Types Packs/Day Years [...] states she is in the ER at [facility] and states that the provider there is starting her on a steroid taper today. She wants to change her appointment to next Monday instead of this Monday.. I advised that I will notify her provider to reach out to her. documented in this encounter Plan of Treatment Upcoming Encounters Date Type Department Care Team (Late st Contact Info) Description 08/02/2024 10:30 AM EST Office [place] [address] Benny Solano MD [facility] [place] [address] documented as of this encounter Visit Diagnoses Not on filedocumented in this encounter Care Teams Stenotypist Relationship Specialty Start Date End Date Anthony Samaniego MD [address] [place] [address] PCP - General 07/16/14 documented as of this encounter
--- OUTSIDE RECORDS SUMMARY | 2024-05-17 08:43 | XMS_ITS | Encounter Summary ---
Author Organization [facility] [place] [address] Care Team Providers Care Girls Swimming Coach Name Role Phone Anthony Samaniego MD Primary Care Provider +1 [phone] Encounter Details Date Type Department Care Team (Late st Contact Info) Description 05/28/2021 9:00 AM EDT Office [place] [address] Lesa Mcgovern MD [facility] [place] [address] Excessive skin and subcutaneous tissue Social History Tobacco Use Types Packs/Day Years [...] documented in this encounter Progress Notes * Mercedez Keys - 05/28/2021 9:00 AM EDT Plastic Surgery Consultation Note Lesa Mcgovern MD. PCP: Anthony Samaniego MD LEACH CELL OPERATOR: No primary care provider on file. CC: Excessive arm tissue HPI: Ai Morrison is a 61 y.o. 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 PRO COLONOSCOPY, DIAGNOSTIC N/A 10/26/2016 COLONOSCOPY, DIAGNOSTIC performed by Keyon Cantu MD at [facility] ??? SALPINGO-OOPHORECTOMY Social History Socioeconomic [...] Take 2 tablets by mouth daily. Indications: M35.0060 tablet 1 ??? cholecalciferol, Vitamin D3, 1,250 [...] anticipated recovery. We discussed short term complications, includingdelayed wound healing, infection, hematoma, seroma, asymmetry, numbness. We discussed halfway complications, primarily focused on scarring/scar widening. I d/w her that scar widening can be best controlled by taking adequate recovery time post-op. 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 She would very much like the surgery [...] Duration: 3h Timeframe: elective Procedure: brachioplasty CPT: 93639 Surgical site: arms Side: bilateral Anesthesia: General Follow up: 7-10 days RED PAT: H&P DOS Need to stop blood thinners pre-op? N/A documented in this encounter Plan of Treatment Upcoming Encounters Date Type Department Care Team (Late st Contact Info) Description 08/02/2024 10:30 AM EST Office [place] [address] Benny Solano MD [facility] [place] [address] documented as of this encounter Visit Diagnoses Diagnosis Excessive skin and subcutaneous tissue documented in this encounter Care Teams Girls Swimming Coach Relationship Specialty Start Date End Date Anthony Samaniego MD [address] [place] [address] [address] [facility] [address] [place] [address] PCP - General 07/16/14 documented as of this encounter
--- OUTSIDE RECORDS SUMMARY | 2024-05-17 08:43 | XMS_ITS | Encounter Summary ---
[place] [address] Care Team Providers Care Electric Meter Tester Name Role Phone Anthony Samaniego MD Primary Care Provider [phone] [phone] Reason for Visit * Reason Comments Medication Refill Encounter Details Date Type Department Care Team (Late st Contact Info) Description 03/08/2022 Ref[place] [address] Benny Solano MD [facility] [place] [address] Chronic pain of both shoulders; Rotator cuff tendinitis, unspecified laterality; Chronic bilateral low back pain without sciatica; Sjogren's syndrome, with unspecified organ involvement; Dry [...] 10:30 AM EST Office [place] [address] Benny Solano MD [facility] [place] [address] documented as of this encounter Visit Diagnoses Diagnosis Chronic pain of both shoulders Pain in joint, shoulder region Rotator cuff tendinitis, unspecified laterality Chronic bilateral low back pain without sciatica Sjogren's syndrome, with unspecified organ involvement Dry eyes Tear film insufficiency, unspecified Sicca syndrome documented in this encounter Care Teams Electric Meter Tester Relationship Specialty Start Date End Date Anthony Samaniego MD [address] [place] [address] PCP - General 07/16/14 documented as of this encounter
--- OUTSIDE RECORDS SUMMARY | 2024-05-17 08:43 | XMS_ITS | Encounter Summary ---
[place] [address] Care Team Providers Care Bullet Slugs Inspector Name Role Phone Anthony Samaniego MD Primary Care Provider [phone] [phone] Reason for Visit * Reason Onset Date Comments Medication Refill 11/19/2020 Encounter Details Date Type Department Care Team (Late st Contact Info) Description 11/19/2020 Refill [place] [address] Jerry Betancourt, RN High risk medication use; Inflammatory arthropathy; Vitamin [...] encounter Miscellaneous Notes * Telephone Encounter - Jerry Betancourt RN - 11/19/2020 10:04 AM EST RTC to Ai and she reports that her refill was not sent, I called her pharmacy and gave the verbal reading from the order that Dr. Solano had already sent on 11-17-20, and they took a verbal. I called Ai and let her know that she can pick it up in an hour, she states that she understands. documented in this encounter Plan of Treatment Upcoming Encounters Date Type Department Care Team (Late st Contact Info) Description 08/02/2024 10:30 AM EST Office [place] [address] Benny Solano MD [facility] [place] [address] documented as of this encounter Visit Diagnoses Diagnosis High risk medication use Encounter for long-term (current) use of other medications Inflammatory arthropathy Arthropathy, unspecified, site unspecified Vitamin D deficiency Unspecified vitamin D deficiency Dry eyes Tear film insufficiency, unspecified Dry mouth Disturbance of salivary secretion documented in this encounter Care Teams Bullet Slugs Inspector Relationship Specialty Start Date End Date Anthony Samaniego MD [address] [place] [address] PCP - General 07/16/14 documented as of this encounter
--- OUTSIDE RECORDS SUMMARY | 2024-05-17 08:43 | XMS_ITS | Encounter Summary ---
[place] [address] Care Team Providers Care Rubber Roller Grinder Name Role Phone Anthony Samaniego MD Primary Care Provider +1 -[phone] Reason for Visit * Reason Onset Date Comments Medication Refill 10/07/2021 Encounter Details Date Type Department Care Team (Late st Contact Info) Description 10/07/2021 [place] [address] Julio Cesar Muñoz PA [address] [place] [address] Social History Tobacco Use Types Packs/Day Years [...] 10:30 AM EST [place] [address] Benny Solano MD [facility] [address] documented as of this encounter Visit Diagnoses Not on filedocumented in this encounter Care Teams Rubber Roller Grinder Relationship Specialty Start Date End Date Anthony Samaniego MD [address] [place] [address] PCP - General 07/16/14 documented as of this encounter
--- OUTSIDE RECORDS SUMMARY | 2024-05-17 08:43 | XMS_ITS | Encounter Summary ---
[place] [address] Care Team Providers Care Strategic Insights Lead Name Role Phone Anthony Samaniego MD Primary Care Provider +1 [phone] Encounter Details Date Type Department Care Team (Late st Contact Info) Description 09/29/2021 1:40 PM EST Ancillary Procedure Radiology [place] [address] Anthony Samaniego MD [address] [place] [address] [address] [facility] 1 [place], [place] [id number] Social History Tobacco Use Types Packs/Day Years [...] 10:30 AM EST [place] [address] Benny Solano MD [facility] [place] [address] documented as of this encounter Procedures Procedure Name Priority Date/Time Associated Diagnosis Comments FILM LIBRARY STORAGE ONLY DX SHOULDER Routine 09/29/2021 1:38 PM EST documented in this encounter Results * Film Library- Storage Only DX Shoulder (09/29/2021 1:38 PM EST) Narrative [facility] - 09/29/2021 1:38 PM EST This exam is auto-finalizing. It's purpose is for storage only. Anthony Samaniego MD IMG FILM LIBRARY ORDERABLES Performing Organization Address City/State/[facility] Co de Phone Number [place], [place] documented in this encounter Visit Diagnoses Not on filedocumented in this encounter Care Teams Strategic Insights Lead Relationship Specialty Start Date End Date Anthony Samaniego MD [address] [place] [address] PCP - General 07/16/14 documented as of this encounter
--- OUTSIDE RECORDS SUMMARY | 2024-05-17 08:43 | XMS_ITS | Encounter Summary ---
[place] [address] Care Team Providers Care Passenger Flagman Name Role Phone Anthony Samaniego MD Primary Care Provider [phone] [phone] Reason for Visit * Reason Onset Date Comments Medication Refill 11/24/2021 Encounter Details Date Type Department Care Team (Late Contact Info) Description 11/24/2021 Refill [place] [address] Benny Solano MD [facility] [place] [address] Dry eyes; Sjogren's syndrome, with unspecified organ [...] 10:30 AM EST Office [place] [address] Benny Solano MD [facility] [place] [address] documented as of this encounter Visit Diagnoses Diagnosis Dry eyes Tear film insufficiency, unspecified Sjogren's syndrome, with unspecified organ involvement Sicca syndrome documented in this encounter Care Teams Passenger Flagman Relationship Specialty Start Date End Date Anthony Samaniego MD [address] [place] [address] PCP - General 07/16/14 documented as of this encounter
--- OUTSIDE RECORDS SUMMARY | 2024-05-17 08:43 | XMS_ITS | Encounter Summary ---
Author Organization [facility] [address] Care Team Providers Care Political Research Scientist Name Role Phone Anthony Samaniego MD Primary Care Provider [phone] [phone] Reason for Visit * Reason Comments Medication Refill Encounter Details Date Type Department Care Team (Late st Contact Info) Description 02/23/2022 Refill [place] [address] Benny Solano MD [facility] [place] [address] High risk medication use; Inflammatory arthropathy; Vitamin [...] encounter Miscellaneous Notes * Telephone Encounter - Precious Holder LPN - 02/24/2022 9:39 AM EDT Requested Prescriptions Pending Prescriptions Disp Refills ??? hydrOXYchloroQUINE (Plaquenil) 200 mg Tablet [Pharmacy Med Name: HYDROXYCHLOROQUINE TABS 200MG]60 tablet 11 Sig: TAKE 2 TABLETS DAILY Last office visit: 10/25/2021 follow up tomorrow Last refill: 11/26/2021 documented in this encounter Plan of Treatment Upcoming Encounters Date Type Department Care Team (Late st Contact Info) Description 08/02/2024 10:30 AM EST Office [place] [address] Benny Solano MD [facility] RHEUMATOLOGY [place] [id number] documented as of this encounter Visit Diagnoses Diagnosis High risk medication use Encounter for long-term (current) use of other medications Inflammatory arthropathy Arthropathy, unspecified, site unspecified Vitamin D deficiency Unspecified vitamin D deficiency Dry eyes Tear film insufficiency, unspecified Dry mouth Disturbance of salivary secretion documented in this encounter Care Teams Political Research Scientist Relationship Specialty Start Date End Date Anthony Samaniego MD [address] [place] [address] PCP - General 07/16/14 documented as of this encounter
--- OUTSIDE RECORDS SUMMARY | 2024-05-17 08:43 | XMS_ITS | Encounter Summary ---
[place] [address] Care Team Providers Care Data Report Analyst Name Role Phone Anthony Samaniego MD Primary Care Provider +1 [phone] Reason for Referral * Physical Therapy (Routine) - Closed Specialty Diagnoses / Procedures Referred By Lindsey varghese Referred To Contact Diagnoses Chronic back pain, unspecified back location, unspecified back pain laterality Benny Solano MD [facility] [place] [address] Referral ID Status Reason Start Date Expiration Date V isits Requested Visits Authorized [id number] Closed Evaluate and Treat Non PCP 10/11/2022 04/09/2023 12 12 Encounter Details Date Type Department Care Team (Late st Contact Info) Description 10/11/2022 9:00 AM EST Office [place] [address] Benny Solano MD [facility] [place] [address] Dry eyes; Sjogren's syndrome, with unspecified organ involvement; Sicca syndrome; Chronic pain of both shoulders; High risk medication use; Leukopenia, unspecified type; Pain in both hands; Inflammatory arthropathy; Vitamin D deficiency; Dry mouth; Chronic back pain, unspecified back [...] Sign Reading Time Taken Comments Blood Pressure 139/61 10/11/2022 8:49 AM EST Pulse 62 10/11/2022 8:49 AM EST Temperature 36.3 ??C (97.3 ??F) 10/11/2022 8:49 AM ES T Respiratory Rate 20 10/11/2022 8:49 AM EST Oxygen Saturation 100% 10/11/2022 8:49 AM EST Inhaled Oxygen Concentration - - Weight 85 kg (187 lb 6.4 oz) 10/11/2022 8:49 AM EST Height 157.5 cm (5' 2) 10/11/2022 8:49 AM EST Body Mass Index 34.28 10/11/2022 8:49 AM EST documented in this encounter Progress Notes * Benny Solano MD - 10/11/2022 9:00 AM EST Rheumatology Follow-up Note Rheum hx Celiac Dz Sj??gren???s Syndrome + lip BX SS - on HCQ Trialed turmeric Interval Hx: Ai Morrison 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 Some stomach issue with bloating Fullness is clinically seeing her OB next week we will follow-up with GI history of SIBO secondary to abnormal bacterial growth previously given erythromycin. She reports that she is up-to-date with colonoscopies though she thinks she may be due for one since her mother in her 60s from colonoscopy but has had them before. She just had a mammogram so this was within normal limits. She does not get her flu, shingles, pneumonia but did get the 2 COVID vaccines. She understands the pros and cons of vaccinations anyway and she understands why they recommended. She has chronic lower back pain which has not done PT before but uses Flexeril and would like a refill. She describes sciatica down the leg she denies any saddle anesthesia, foot drop, neuropathy or weakness in the lower extremities. She takes ibuprofen twice a day for fibromyalgia pain. She recently had labs done which showed a mild leukopenia this is via her cell phone. She denies any fevers night sweats weight loss or swollenglands. She notes her dryness is worse over the winter but is relatively stable. She takes this deve lopmentally and as needed. She is up-to-date on eye exams Denies parotitis, Raynaud's phenomenon, swollen glands, prurtitis, myalgias, depression, weakness, joint swelling and weight loss Review of Systems Rheumatic history (x) means [...] 46. Xerosis cutis 47. Photosensitivity 48. Rash PMH: Celiac disease biopsy-proven, follows with GI [...] week. 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 Family Hx: PGM had RA. Mother had brain aneurysms, from COPD. Also had colon cancer. Sister has vasculitis. Physical exam Patient Vitals for the past 24 hrs: Temp Pulse Resp BP SpO2 10/11/22 0849 36.3 ??C (97.3 ??F) 62 20 139/61 100 % General: , NAD HEENT: Mucous [...] (40-104) Folic acid vitamin B12 AME (ESTRELLA) COMMUNITY SERVICE REPRESENTATIVE 0.9 dsDNA CCP Rx C3-C4 SPEP TSH [...] pelvis with oral and IV contrast at [facility] Oral contrast seen in the stomach [...] level 30 Impression/recommendations: Ai Morrison is a 62 y.o. 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 She is here for follow up fatigue, arthralgias. Shoulder pain - irmproved with PT Lower back pain discussed MRI if symptoms refer to PT-recommend treat your own back by Aman Chand - refill flexeril - dsicussed referral to [facility] pain Leukopenia Repeat CBc in 4 weeks Sjogren (SS) - Serologies negative. Positive minor salivary gland biopsy for Sjogren's in May2018 specific labs and monitoring - ordered - reviewed prope dry and dry mouth [...] scheduling appt agree and follow up with [facility] Dicussed high risk medication HCQ - No SE/AE- [...] to complete labsand eye examinations as requested. Previous discission MTX and RTX (Discussed rituxan and risk of infection long half life and risk with covid) Orders Placed This Encounter Procedures ??? CBC (with Diff) ??? Creatinine ??? Hepatic Function Panel ??? CRP, acute inflammation ??? Sedimentation rate ??? Cryoglobulin ??? C4 Complement ??? C3 Complement ??? Rheumatoid factor, quant ??? Protein Electrophoresis, serum ??? Complement, Total ??? Protein Electrophoresis, urine, random ??? CBC (with Diff) ??? Referral to Physical Therapy Return in about 3 months (around 2023). >44 minutes spent in total today documented in this encounter Plan of Treatment Upcoming Encounters Date Type Department Care Team (Late st Contact Info) Description 08/02/2024 10:30 AM EST Office [place] [address] Benny Solano MD [facility] [place] [address] Scheduled Referrals Name Type Priority Associated Diagnoses Orde r Schedule Referral to Physical Therapy Outpatient Referral Routine Chronic back pain, unspecified back location, unspecified back pain laterality Ordered: 10/11/2022 documented as of this encounter Visit Diagnoses Diagnosis Dry eyes Tear film insufficiency, unspecified Sjogren's syndrome, with unspecified organ involvement Sicca syndrome Chronic pain of both shoulders Pain in joint, shoulder region High risk medication use Encounter for long-term (current) use of other medications Leukopenia, unspecified type Pain in both hands Inflammatory arthropathy Arthropathy, unspecified, site unspecified Vitamin D deficiency Unspecified vitamin D deficiency Dry mouth Disturbance of salivary secretion Chronic back pain, unspecified back location, unspecified back pain laterality documented in this encounter Care Teams Data Report Analyst Relationship Specialty Start Date End Date Anthony Samaniego MD [address] [facility] [address] [place] [address] PCP - General 07/16/14 documented as of this encounter
--- OUTSIDE RECORDS SUMMARY | 2024-05-17 08:43 | XMS_ITS | Encounter Summary ---
[place] [address] Care Team Providers Care Aviation Tactical Readiness Officer Name Role Phone Anthony Samaniego MD Primary Care Provider [phone] [phone] Reason for Visit * Reason Comments Medication Refill Encounter Details Date Type Department Care Team (Late Contact Info) Description 10/06/2021 [place] [address] Julio Cesar Muñoz PA [address] [place] [address] Social History Tobacco Use Types Packs/Day Years [...] 10:30 AM EST Office [place] [address] [facility] [place] [address] documented as of this encounter Visit Diagnoses Not on filedocumented in this encounter Care Teams Aviation Tactical Readiness Officer Relationship Specialty Start Date End Date Anthony Samaniego MD [address] [place] [address] PCP - General 07/16/14 documented as of this encounter
--- OUTSIDE RECORDS SUMMARY | 2024-05-17 08:43 | XMS_ITS | Encounter Summary ---
[place] [address] Care Team Providers Care Box Strapper Name Role Phone Anthony Samaniego MD Primary Care Provider [phone] [phone] Reason for Visit * Reason Comments Medication Refill Encounter Details Date Type Department Care Team (Late Contact Info) Description 12/06/2022 Ref[place] [address] Benny Solano MD [facility] [place] [address] Social History Tobacco Use Types Packs/Day Years [...] 10:30 AM EST Office [place] [address] Benny Solano MD [facility] [place] [address] documented as of this encounter Visit Diagnoses Not on filedocumented in this encounter Care Teams Box Strapper Relationship Specialty Start Date End Date Anthony Samaniego MD [address] [place] [address] PCP - General 07/16/14 documented as of this encounter
--- OUTSIDE RECORDS SUMMARY | 2024-05-17 08:43 | XMS_ITS | Encounter Summary ---
[place] [address] Care Team Providers Care Paraeducator Name Role Phone Anthony Samaniego MD Primary Care Provider [phone] [phone] Reason for Visit * Reason Onset Date Comments Medication Refill 11/25/2021 Encounter Details Date Type Department Care Team (Late Contact Info) Description 11/25/2021 [place] [address] Graciela Torres, RN High risk medication use; Inflammatory arthropathy; [...] 10:30 AM [place] [address] Benny Solano MD [facility] [place] [address] documented as of this encounter Visit Diagnoses Diagnosis High risk medication use Encounter for long-term (current) use of other medications Inflammatory arthropathy Arthropathy, unspecified, site unspecified Vitamin D deficiency Unspecified vitamin D deficiency Dry eyes Tear film insufficiency, unspecified Dry mouth Disturbance of salivary secretion documented in this encounter Care Teams Paraeducator Relationship Specialty Start Date End Date Anthony Samaniego MD [address] [place] [address] PCP - General 07/16/14 documented as of this encounter
--- OUTSIDE RECORDS SUMMARY | 2024-05-17 08:43 | XMS_ITS | Encounter Summary ---
[place] [address] Care Team Providers Care Ophthalmology Surgical Technician Name Role Phone Anthony Samaniego MD Primary Care Provider [phone] [phone] Reason for Visit * Reason Onset Date Comments Medication Refill 04/07/2021 Encounter Details Date Type Department Care Team (Late Contact Info) Description 04/07/2021 Refill [place] [address] Benny Solano MD [facility] [place] [address] Dry eyes; Sjogren's syndrome, with unspecified organ [...] 10:30 AM EST Office [place] [address] Benny Solano MD [facility] [place] [address] documented as of this encounter Visit Diagnoses Diagnosis Dry eyes Tear film insufficiency, unspecified Sjogren's syndrome, with unspecified organ involvement Sicca syndrome documented in this encounter Care Teams Ophthalmology Surgical Technician Relationship Specialty Start Date End Date Anthony Samaniego MD [address] [place] [address] PCP - General 07/16/14 documented as of this encounter
--- OUTSIDE RECORDS SUMMARY | 2024-05-17 08:43 | XMS_ITS | Encounter Summary ---
[place] [address] Care Team Providers Care Mortar Man Name Role Phone Anthony Samaniego MD Primary Care Provider +1 -[phone] Encounter Details Date Type Department Care Team (Late st Contact Info) Description 04/02/2021 Telephone [place] [phone] Megan Sheffield Social History Tobacco Use Types Packs/Day Years [...] encounter Miscellaneous Notes * Telephone Encounter - Megan Sheffield - 04/02/2021 3:05 PM EDT LM to schedule follow up with dr borjas documented in this encounter Plan of Treatment Upcoming Encounters Date Type Department Care Team (Late st Contact Info) Description 08/02/2024 10:30 AM EST Office [place] [address] Benny Borjas MD [facility] [place] [place] [address] documented as of this encounter Visit Diagnoses Not on filedocumented in this encounter Care Teams Mortar Man Relationship Specialty Start Date End Date Anthony Samaniego MD [address] [place] [address] [address] [place] [address] PCP - General 07/16/14 documented as of this encounter
--- OUTSIDE RECORDS SUMMARY | 2024-05-17 08:43 | XMS_ITS | Encounter Summary ---
[place] [address] Care Team Providers Care Loan Review Analyst Name Role Phone Anthony Samaniego MD Primary Care Provider +1 -[phone] Reason for Visit * Reason Onset Date Comments Medication Refill 01/19/2022 Encounter Details Date Type Department Care Team (Late st Contact Info) Description 01/19/2022 Ref[place] [address] Benny Solano MD [facility] [place] [address] Social History Tobacco Use Types Packs/Day Years [...] AM EST Office [place] [address] Benny Solano MD [facility] [place] [address] documented as of this encounter Visit Diagnoses Not on filedocumented in this encounter Care Teams Loan Review Analyst Relationship Specialty Start Date End Date Anthony Samaniego MD [address] [place] [address] [address] [place] [address] PCP - General 07/16/14 documented as of this encounter
--- OUTSIDE RECORDS SUMMARY | 2024-05-17 08:43 | XMS_ITS | Encounter Summary ---
[place] [address] Care Team Providers Care Head Holder Name Role Phone Anthony Samaniego MD Primary Care Provider +1 -[phone] Reason for Visit * Reason Comments Medication Refill Encounter Details Date Type Department Care Team (Late Contact Info) Description 01/18/2023 [place] [address] Benny Solano MD [facility] [place] [address] Chronic pain of both shoulders; Rotator cuff [...] 10:30 AM EST Office [place] [address] Benny Solano MD [facility] [place] [address] documented as of this encounter Visit Diagnoses Diagnosis Chronic pain of both shoulders Pain in joint, shoulder region Rotator cuff tendinitis, unspecified laterality Chronic bilateral low back pain without sciatica documented in this encounter Care Teams Head Holder Relationship Specialty Start Date End Date Anthony Samaniego MD [address] [place] [address] PCP - General 07/16/14 documented as of this encounter
--- OUTSIDE RECORDS SUMMARY | 2024-05-17 08:43 | XMS_ITS | Encounter Summary ---
Author Organization [facility] [place] [address] Care Team Providers Care Hoop Coiling Machine Operator Name Role Phone Anthony Samaniego MD Primary Care Provider +1 -[phone] Encounter Details Date Type Department Care Team (Late st Contact Info) Description 11/19/2020 Orders [place] [address] Benny Solano MD [facility] [place] [address] Social History Tobacco Use Types Packs/Day Years [...] 10:30 AM EST Office [place] [address] Benny Solano MD [facility] [place] [address] documented as of this encounter Visit Diagnoses Not on filedocumented in this encounter Care Teams Hoop Coiling Machine Operator Relationship Specialty Start Date End Date Anthony Samaniego MD [address] [place] [address] PCP - General 07/16/14 documented as of this encounter
--- OUTSIDE RECORDS SUMMARY | 2024-05-17 08:44 | XMS_ITS | Encounter Summary ---
Author Organization [facility] [place] [address] Care Team Providers Care Fabric Cutter Name Role Phone nAthony Samaniego MD Primary Care Provider +1 -[phone] Encounter Details Date Type Department Care Team (Late st Contact Info) Description 06/13/2019 Orders [place] [address] Benny Solano MD [facility] [place] [address] Macrocytosis Social History Tobacco Use Types Packs/Day Years [...] 10:30 AM EST [place] [address] Benny Solano MD [facility] [place] [address] documented as of this encounter Results * Vitamin B12 (10/09/2019 11:01 AM EST) Vitamin B12 592 232 - 1,245 pg/mL [facility] Blood specimen (specimen) 10/09/2019 11:01 AM EST 10/09/2019 11:24 AM EST Narrative Resulting Agency Comment Spec In Lab Benny Solano MD CHEMISTRY ORDERABLES [facility] [place] [address] documented in this encounter Visit Diagnoses Diagnosis Macrocytosis Other specified diseases of blood and blood-forming organs documented in this encounter Care Teams Fabric Cutter Relationship Specialty Start Date End Date Anthony Samaniego MD [address] [place] [address] [address] [place] [address] PCP - General 07/16/14 documented as of this encounter
--- OUTSIDE RECORDS SUMMARY | 2024-05-17 08:44 | XMS_ITS | Encounter Summary ---
[place] [address] Care Team Providers Care Curb Hop Name Role Phone Anthony Samaniego MD Primary Care Provider +1 -[phone] Reason for Visit * Reason Comments Medication Refill Encounter Details Date Type Department Care Team (Late Contact Info) Description 12/05/2019 [place] [address] Benny Solano MD [facility] [place] [address] Social History Tobacco Use Types Packs/Day Years [...] 10:30 AM EST [place] [address] Benny Solano MD [facility] [place] [address] documented as of this encounter Visit Diagnoses Not on filedocumented in this encounter Care Teams Curb Hop Relationship Specialty Start Date End Date Anthony Samaniego MD [address] [place] [address] PCP - General 07/16/14 documented as of this encounter
--- OUTSIDE RECORDS SUMMARY | 2024-05-17 08:44 | XMS_ITS | Encounter Summary ---
[place] [address] Care Team Providers Care Stroke Program Coordinator Name Role Phone Anthony Samaniego MD Primary Care Provider +1 -[phone] Reason for Visit * Reason Onset Date Comments Medication Refill 03/24/2019 Encounter Details Date Type Department Care Team (Late st Contact Info) Description 03/24/2019 Refill [place] [address] Patty Hebert MD [facility] [place] [address] Social History Tobacco Use Types Packs/Day Years [...] 10:30 AM EST Office [place] [address] Benny Solano MD [facility] [place] [address] documented as of this encounter Visit Diagnoses Not on filedocumented in this encounter Care Teams Stroke Program Coordinator Relationship Specialty Start Date End Date Anthony Samaniego MD [address] [place] [address] [address] [place] [address] PCP - General 07/16/14 documented as of this encounter
--- OUTSIDE RECORDS SUMMARY | 2024-05-17 08:44 | XMS_ITS | Encounter Summary ---
[place] [address] Care Team Providers Care Supercharge Repair Supervisor Name Role Phone Anthony Samaniego MD Primary Care Provider +1 -[phone] Encounter Details Date Type Department Care Team (Late st Contact Info) Description 10/26/2018 Telephone [place] [address] Bjorn Bhakta RN Social History Tobacco Use Types Packs/Day [...] encounter Miscellaneous Notes * Telephone Encounter - Bjorn Bhakta RN - [...] 10:30 AM EST Office [place] [address] [facility] [place] [address] documented as of this encounter Visit Diagnoses Not on filedocumented in this encounter Care Teams Supercharge Repair Supervisor Relationship Specialty Start Date End Date Anthony Samaniego MD [address] [place] [address] PCP - General 07/16/14 documented as of this encounter
--- OUTSIDE RECORDS SUMMARY | 2024-05-17 08:44 | XMS_ITS | Encounter Summary ---
[place] [address] Care Team Providers Care Manager Environmental Services Name Role Phone Anthony Samaniego MD Primary Care Provider +1 -[phone] Reason for Visit * Reason Comments Medication Refill Encounter Details Date Type Department Care Team (Late Contact Info) Description 10/13/2019 [place] [address] [facility] [place] [place] [address] Dry eyes; Sjogren's syndrome, with unspecified organ [...] 10:30 AM EST [place] [address] [facility] [place] [address] documented as of this encounter Visit Diagnoses Diagnosis Dry eyes Tear film insufficiency, unspecified Sjogren's syndrome, with unspecified organ involvement documented in this encounter Care Teams Manager Environmental Services Relationship Specialty Start Date End Date Anthony Samaniego MD [address] [place] [address] PCP - General 07/16/14 documented as of this encounter
--- OUTSIDE RECORDS SUMMARY | 2024-05-17 08:44 | XMS_ITS | Encounter Summary ---
Author Organization [facility] [place] [address] Care Team Providers Care Package Pick Up Name Role Phone Anthony Samaniego MD Primary Care Provider [phone] Reason for Referral * Physical Therapy (Routine) - Closed Specialty Diagnoses / Procedures Referred By Contvincenzo t Referred To Contact Diagnoses Myofascial pain dysfunction syndrome Benny Solano MD [facility] [place] [address] Referral ID Status Reason Start Date Expiration Date V isits Requested Visits Authorized [id number] Closed Evaluate and Treat 10/09/2019 04/06/2020 12 12 * Physical Therapy (Routine) - Closed Specialty Diagnoses / Procedures Referred By Contac t Referred To Contact Physical Therapy Diagnoses Chronic pain of both knees Benny Solano MD [facility] [place] [address] [facility] [address] [place] [address] Referral ID Status Reason Start Date Expiration Date V isits Requested Visits Authorized [id number] Closed Evaluate and Treat 10/09/2019 04/06/2020 12 12 Encounter Details Date Type Department Care Team (Latest Contact Info) Description 10/09/2019 10:00 AM EST Office Visit Rheumatology at [facility] [place] [address] Benny Solano MD [facility] [place] [address] Sjogren's syndrome, with unspecified organ involvement; Celiac disease/sprue; Medication monitoring encounter; Pain in peñaloza, unspecified laterality; High risk medication use; Osteoarthritis, unspecified osteoarthritis type, unspecified site; Chronic pain of both knees; Myofascial pain dysfunction syndrome; Macrocytosis; Inflammatory arthropathy; Vitamin D deficiency; Dry eyes; [...] 36.5 ??C (97.7 ??F) 10/09/2019 9:54 AM ES T Respiratory Rate - - Oxygen Saturation 100% 10/09/2019 9:54 AM EST Inhaled Oxygen Concentration - - Weight 107 kg (236 lb) 10/09/2019 9:54 AM EST Height 157.5 cm (5' 2) 10/09/2019 9:54 AM EST Body Mass Index 43.16 10/09/2019 9:54 AM EST documented in this encounter Progress Notes * Benny Solano MD - 10/09/2019 10:00 AM EST Rheumatology Follow-up Note Rheum hx Celiac Dz Sj??gren???s Syndrome + lip BX SS - on HCQ Trialed turmeric CC peñaloza and knee pain Interval Hx: Ai Morrison 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 Reportedly, here for evaluation of fatigue, arthralgias. The fatigue continues but complain about bilaterla peñaloza pain or bone pains. No swelling, rendessor wamrth of the joints. Dry eyes not [...] DIAGNOSTIC performed by Keyon Cantu MD at [facility] ??? PRO COLONOSCOPY, DIAGNOSTIC N/A 10/26/2016 COLONOSCOPY, DIAGNOSTIC performed by Keyon Cantu MD at [facility] ??? SALPINGO-OOPHORECTOMY Family History Problem [...] file Gets together: Not on file Attends mandaeism service: Not on file Active member of [...] 3 times daily. Start with 1 tab at night every 2 weeks will add a dose [...] 3 times daily. 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 Positive minor salivary gland biopsy for Sjogren's in May 2018 Sj??gren???s Syndrome- Cont symptomatic control - Cont HCQ- neil RTX if no logan Dry eyes - seeing ophthomlogy Continue conservative [...] 10:30 AM EST Office Visit Rheumatology at [facility] [place] [address] Benny Solano MD [facility] [place] [address] Scheduled Referrals Name Type Priority Associated Diagnoses Orde r Schedule Referral to Physical Therapy Outpatient Referral Routine Chronic pain of both knees Ordered: 10/09/2019 Referral to Physical Therapy Outpatient Referral Routine Myofascial pain dysfunction syndrome Ordered: 10/09/2019 documented as of this encounter Procedures Procedure Name Priority Date/Time Associated Diagnosis Comments HC C-REACTIVE PROTEIN Routine 10/09/2019 11:01 AM EST Sjogren's syndrome, with unspecified organ involvement Celiac disease/sprue Medication monitoring encounter Pain in peñaloza, unspecified laterality High risk medication use HEMOGRAM Routine 10/09/2019 11:01 AM EST Sjogren's syndrome, with unspecified organ involvement Celiac disease/sprue Medication monitoring encounter Pain in peñaloza, unspecified laterality High risk medication use DIFFERENTIAL, AUTOMATED Routine 10/09/2019 11:01 AM EST Sjogren's syndrome, with unspecified organ involvement Celiac disease/sprue Medication monitoring encounter Pain in peñaloza, unspecified laterality High risk medication use HC CREATININE Routine 10/09/2019 11:01 AM EST Sjogren's syndrome, with unspecified organ involvement Celiac disease/sprue Medication monitoring encounter Pain in peñaloza, unspecified laterality High risk medication use HC VENIPUNCTURE Routine 10/09/2019 11:01 AM EST Sjogren's syndrome, with unspecified organ involvement Celiac disease/sprue Medication monitoring encounter Pain in peñaloza, unspecified laterality High risk medication use HC ESR-SEDIMENTATION RATE, BLOOD Routine 10/09/2019 11:01 AM EST Sjogren's syndrome, with unspecified organ involvement Celiac disease/sprue Medication monitoring encounter Pain in peñaloza, unspecified laterality High risk medication use HC CBC,PLT & AUTO DIFF Routine 10/09/2019 11:01 AM EST Sjogren's syndrome, with unspecified organ involvement Celiac disease/sprue Medication monitoring encounter Pain in peñaloza, unspecified laterality High risk medication use HC URIC ACID, SERUM Routine 10/09/2019 1 1:01 AM EST High risk medication use Inflammatory arthropathy Vitamin D deficiency Dry eyes Dry mouth HC VITAMIN B12 SERUM Routine 10/09/2019 11:01 AM EST Macrocytosis HEPATIC FUNCTION PANEL Routine 10/09/2019 11:01 AM EST Sjogren's syndrome, with unspecified organ involvement Celiac disease/sprue Medication monitoring encounter Pain in peñaloza, unspecified laterality High risk medication use documented in this encounter Results * XR Tibia Fibula Bilat (Generic) (10/09/2019 11:19 AM EST) Anatomical Region Laterality Modality Leg Bilateral Digital Radiogra phy Impressions 10/09/2019 11:53 AM EST Unremarkable tibia/fibular radiographs Thank you for letting us participate in the care of this patient. For questions regarding this report, please contact the number below. ? Electronically signed by: Charlie Machado [facility] ([phone]), at 10/09/2019 11:53 AM Narrative 10/09/2019 11:53 AM EST EXAMINATION: XR TIBIA FIBULA BILAT (GENERIC) CLINICAL HISTORY: bilateral peñaloza pain TECHNIQUE: 2 views BILATERAL tibia and fibula COMPARISON: None FINDINGS: No fracture or abnormal sclerosis/lucency in the bilateral tibias and fibulas. Alignment is unremarkable. Unremarkable soft tissues. Procedure Note Charlie Machado MD - 10/09/2019 EXAMINATION: XR TIBIA FIBULA BILAT (GENERIC) CLINICAL HISTORY: bilateral peñaloza pain TECHNIQUE: 2 views BILATERAL tibia and fibula COMPARISON: None FINDINGS: No fracture or abnormal sclerosis/lucency in the bilateral tibias andfibulas. Alignment is unremarkable. Unremarkable soft tissues. IMPRESSION Unremarkable tibia/fibular radiographs Thank you for letting us participate in the care of this patient. Forquestions regarding this report, please contact the number below. Electronically signed by: Charlie Machado [facility]([phone]), at 10/09/2019 11:53 AM Benny Solano MD IMG DX ORDERABLES * Differential, Automated (10/09/2019 11:01 AM EST) Neutrophil % 56.6 % [facility] Neutrophil Absolute 2.81 1.70 - 6.10 x10(3)/[facility] Lymph % 31.7 % [facility] Lymphocytes Abs 1.6 0.9 - 3.2 x10(3)/[facility] Monocyte % 7.9 % [facility] Monocyte Abs 0.4 0.3 - 0.9 x10(3)/[facility] Eos % 2.6 % [facility] Eosinophils Abs 0.1 0.0 - 0.4 x10(3)/[facility] Basophil % 1.0 % [facility] Baso Absolute 0.0 0.0 - 0.1 x10(3)/[facility] Immature Gran % 0.20 % [facility] Comment: Immature granulocytes(IG's)percentage and absolute count will include metamyelocytes, myelocytes, and promyelocytes. Blood smears from CBCs yielding IG's will be scanned manually for concordance. If this scan disagrees with the automated IG or if promyelocytes are noted, a manual differential will be performed. Immature Gran Absolute 0.01 0.00 - 0.04 x10(3)/[facility] Blood specimen (specimen) 10/09/2019 11:01 AM EST 10/09/2019 11:10 AM EST Narrative Resulting Agency Comment Spec In Lab Benny Solano MD HEMATOLOGY ORDERABLE S [facility] [place] [address] * (ABNORMAL) Hemogram (10/09/2019 11:01 AM EST) White Blood Cell 5.0 4.0 - 9.5 x10(3)/ L [facility] Red Blood Cell 3.98(L) 4.00 - 5.21 x10(6)/[facility] Hemoglobin 12.7 11.7 - 15.5 gm/dL [facility] Hematocrit 38.3 35.7 - 45.8 % [facility] Mean Cell Volume 96.2(H) 82.6 - 94.4 fL [facility] Mean Cell Hemoglobin 31.9 27.1 - 32.0 pg [facility] Mean Cell Hemoglobin Concentration 33.2 31.7 - 35.0 gm/dL [facility] Platelet 257 145 - 357 x10(3)/[facility]OR[facility] RDW Standard Deviation 45.3 37.0 - 46.0 [facility] RDW coefficient of variation 12.6 11.5 - 14.1 % [facility] Mean Platelet Volume 10.8 7.6 - 12.9 fL [facility] NRBC% auto 0.0 % [facility] NRBC Absolute 0.000 0.000 - 0.000 x10(3)/[facility] Blood specimen (specimen) 10/09/2019 11:01 AM EST 10/09/2019 11:10 AM EST Narrative Resulting Agency Comment Spec In Lab Benny Solano MD HEMATOLOGY ORDERABLE S [facility] [place] [address] * (ABNORMAL) Sedimentation rate (10/09/2019 11:01 AM EST) Sedimentation Rate Automated 40(H) 0 - 20 mm/hr [facility] Blood specimen (specimen) 10/09/2019 11:01 AM EST 10/09/2019 11:10 AM EST Narrative Resulting Agency Comment Spec In Lab Benny Solano MD HEMATOLOGY ORDERABLE S Performing Organization Address City/[facility]/ZIP Co de Phone Number [facility] [place] [address] * CRP, acute inflammation (10/09/2019 11:01 AM EST) C-Reactive Protein 1.4 <=4.9 mg/L [facility] Blood specimen (specimen) 10/09/2019 11:01 AM EST 10/09/2019 11:10 AM EST Narrative Resulting Agency Comment Spec In Lab Benny Solano MD CHEMISTRY ORDERABLES Performing Organization Address [facility] Co de Phone Number [facility] [place] [address] * Hepatic Function Panel (10/09/2019 11:01 AM EST) Protein, Total 7.5 6.1 - 8.0 gm/dL [facility] Albumin 4.3 3.2 - 5.2 gm/dL [facility] Aspartate Aminotransferase 16 0 - 30 unit/L [facility] Alanine Aminotransferase 12 0 - 30 unit/L [facility] Alkaline Phosphatase 82 35 - 105 unit/L [facility] Bilirubin, Total 0.3 0.2 - 1.3 mg/dL [facility] Bilirubin, Direct 0.1 0.0 - 0.3 mg/dL [facility] Blood specimen (specimen) 10/09/2019 11:01 AM EST 10/09/2019 11:10 AM EST Narrative Resulting Agency Comment Spec In Lab Benny Solano MD CHEMISTRY ORDERABLES Performing Organization Address City/[facility] Co de Phone Number [facility] [place] [address] * Creatinine (10/09/2019 11:01 AM EST) Creatinine 0.95 0.70 - 1.20 mg/dL [facility] Est Glomerular Filtration Rate 66 >=60 mL/min/1.7 3 m?? [facility] Comment: The eGFR was calculated using the CKD-EPI equation. As with all creatinine based estimates of kidney function, eGFR values calculated with the CKD-EPI equation are not accurate in patients with acute kidney failure, extremes of body mass or the acutely ill. http://[employer]/[facility]kf eGFR 76 >=60 mL/min/1.7 3 m?? [facility] Comment: The eGFR was calculated using the CKD-EPI equation. As with all creatinine based estimates of kidney function, eGFR values calculated with the CKD-EPI equation are not accurate in patients with acute kidney failure, extremes of body mass or the acutely ill. http://[employer]/[facility] Blood specimen (specimen) 10/09/2019 11:01 AM EST 10/09/2019 11:10 AM EST Narrative Resulting Agency Comment Spec In Lab Benny Solano MD CHEMISTRY ORDERABLES Performing Organization Address [facility] Co de Phone Number [facility] [place] [address] * Uric acid (10/09/2019 11:01 AM EST) Uric Acid 4.0 2.5 - 6.5 mg/dL [facility] Blood specimen (specimen) 10/09/2019 11:01 AM EST 10/09/2019 11:10 AM EST Narrative Resulting Agency Comment Spec In Lab Benny Solano MD CHEMISTRY ORDERABLES Performing Organization Address [facility] Co de Phone Number [facility] [place] [address] * Vitamin B12 (10/09/2019 11:01 AM EST) Vitamin B12 592 232 - 1,245 pg/mL [facility] Blood specimen (specimen) 10/09/2019 11:01 AM EST 10/09/2019 11:24 AM EST Narrative Resulting Agency Comment Spec In Lab Benny Solano MD CHEMISTRY ORDERABLES Performing Organization Address [facility]/ZIP Co de Phone Number [facility] [place] [address] * Vitamin D, 25-Hydroxy (10/09/2019 11:01 AM EST) Vitamin D Total 25 OH 46 30 - 100 ng/mL [facility] Comment: As of 2019, 25-hydroxyvitamin D testing has moved from the [employer] to the [facility]. No substantial change in measured values is expected. Blood specimen (specimen) 10/09/2019 11:01 AM EST 10/09/2019 11:24 AM EST Narrative Resulting Agency Comment Spec In Lab Benny Solano MD CHEMISTRY ORDERABLES Performing Organization Address City/[facility]/ZIP Co de Phone Number [facility] [place] [address] documented in this encounter Visit Diagnoses Diagnosis Sjogren's syndrome, with unspecified organ involvement Celiac disease/sprue Celiac disease Medication monitoring encounter Encounter for therapeutic drug monitoring Pain in peñaloza, unspecified laterality High risk medication use Encounter for long-term (current) use of other medications Osteoarthritis, unspecified osteoarthritis type, unspecified site Chronic pain of both knees Myofascial pain dysfunction syndrome Mylagia and myositis, unspecified Macrocytosis Other specified diseases of blood and blood-forming organs Inflammatory arthropathy Arthropathy, unspecified, site unspecified Vitamin D deficiency Unspecified vitamin D deficiency Dry eyes Tear film insufficiency, unspecified Dry mouth Disturbance of salivary secretion Sjogren's syndrome, with unspecified organ involvement Celiac disease/sprue Celiac disease Medication monitoring encounter Encounter for therapeutic drug monitoring Pain in peñaloza, unspecified laterality High risk medication use Encounter for long-term (current) use of other medications documented in this encounter Care Teams Package Pick Up Relationship Specialty Start Date End Date Anthony Samaniego MD [address] [place] [address] PCP - General 07/16/14 documented as of this encounter
--- OUTSIDE RECORDS SUMMARY | 2024-05-17 08:44 | XMS_ITS | Encounter Summary ---
[place] [address] Care Team Providers Care Student Dean Name Role Phone Anthony Samaniego MD Primary Care Provider [phone] Reason for Visit * Diagnostic Test (Routine) - Closed Specialty Diagnoses / Procedures Referred By Lindsey varghese Referred To Contact Radiology Diagnoses Celiac disease/sprue Chronic constipation Sjogren's syndrome, with unspecified organ involvement Procedures NM Gastric Emptying Scan Luca Cain MD [facility] [place] [address] [place] [address] Referral ID Status Reason Start Date Expiration Date V isits Requested Visits Authorized [id number] Closed Specialty Service Requested 08/06/2018 08/06/2019 1 1 Encounter Details Date Type Department Care Team (Late st Contact Info) Description 01/23/2019 8:44 AM EDT Hospital Encounter [place] [address] Luca Cain MD [facility] [place] [address] Discharge Disposition: Home Social History Tobacco Use Types Packs/Day Years [...] End Date PREVIDENT 5000 DRY MOUTH 1.1 % Gel nightly. 11/15/2018 DOCUSATE CALCIUM (STOOL SOFTENER ORAL) Take by mouth as needed. cevimeline (EVOXAC) 30 mg Capsule Take 1 capsule by mouth 3 times daily. 90 capsule 3 10/24/2018 03/24/2019 ibuprofen (ADVIL;MOTRIN) 800 mg tablet Take 800 mg by mouth every 6 hours as needed. 11/26/2021 documented as of this encounter Plan of Treatment Upcoming Encounters Date Type Department Care Team (Late st Contact Info) Description 08/02/2024 10:30 AM EST Office Visit [place] [address] Benny Solano MD [facility] [place] [address] documented as of this encounter Procedures Procedure Name Priority Date/Time Associated Diagnosis Comments NM GASTRIC EMPTYING SCAN Routine 01/23/2019 12:25 PM EDT Celiac disease/sprue Chronic constipation Sjogren's syndrome, with unspecified organ involvement documented in this encounter Results * NM Gastric Emptying Scan (01/23/2019 12:25 PM EDT) Anatomical Region Laterality Modality Nuclear Medicine Impressions 01/23/2019 5:05 PM EDT Normal gastric emptying. I have personally reviewed the image(s) and the residents interpretation and agree with the findings, Richard Layton at 01/23/2019 5:05 PM Thank you for letting us participate in the care of this patient. For questions regarding this report, please contact the number below. ? Narrative 01/23/2019 5:05 PM EDT EXAMINATION: NM GASTRIC EMPTYING SCAN CLINICAL HISTORY: chronic constipation and new diagnosis of Sjrogren's TECHNIQUE: A standard meal was labeled with 0.5 mCi of Technetium-99m sulfur colloid and ingested. Images of the stomach were obtained in the anterior and posterior projections immediately thereafter and 1, 2, and 3 hours later. COMPARISON: None FINDINGS: Activity fills the stomach on the initial images obtained immediately after ingesting the meal. Small bowel is visible at one hour. There is minimal activity present in the stomach at 3 hours. Quantitative analysis: 2 hours: 6 percent remains in the stomach (normal less than 60%) 3 hours: 2 percent remains in the stomach (normal less than 10% at four hours) Procedure Note Richard Layton MD - 01/23/2019 EXAMINATION: NM GASTRIC EMPTYING SCAN CLINICAL HISTORY: chronic constipation and new diagnosis of Sjrogren's TECHNIQUE: A standard meal was labeled with 0.5 mCi of Technetium-99msulfur colloid and ingested. Images of the stomach were obtained in the anteriorand posterior projections immediately thereafter and 1, 2, and 3 hourslater. COMPARISON: None FINDINGS: Activity fills the stomach on the initial images obtained immediatelyafter ingesting the meal. Small bowel is visible at one hour. There is minimal activity present in the stomach at 3 hours. Quantitative analysis: 2 hours: 6 percent remains in the stomach (normal less than 60%) 3 hours: 2 percent remains in the stomach (normal less than 10% at fourhours) IMPRESSION Normal gastric emptying. I have personally reviewed the image(s) and the residents interpretationand agree with the findings, Richard Layton at 01/23/2019 5:05 PM Thank you for letting us participate in the care of this patient. Forquestions regarding this report, please contact the number below. Luca Cain MD IMG NM ORDERABLES documented in this encounter Visit Diagnoses Not on filedocumented in this encounter Care Teams Student Dean Relationship Specialty Start Date End Date Anthony Samaniego MD [address] [place] [address] PCP - General 07/16/14 documented as of this encounter
--- OUTSIDE RECORDS SUMMARY | 2024-05-17 08:44 | XMS_ITS | Encounter Summary ---
Author Organization [facility] [place] [address] Care Team Providers Care Shelver Name Role Phone Anthony Samaniego MD Primary Care Provider [phone] Reason for Referral * Physical Therapy (Routine) - Specialty Diagnoses / Procedures Referred By Lindsey varghese Referred To Contact Diagnoses Dry eyes Sjogren's syndrome, with unspecified organ involvement Sicca syndrome Pain in peñaloza, unspecified laterality Chronic pain of both ankles Osteoarthritis of right ankle, unspecified osteoarthritis type Benny Solano MD [facility] [place] [address] Referral ID Status Reason Start Date Expiration Date V isits Requested Visits Authorized [id number] Evaluate and Treat Non DH PCP 03/12/2020 09/08/2020 12 12 Encounter Details Date Type Department Care Team (Latest Contact Info) Description 03/12/2020 8:00 AM EDT TH Visit (TeleHealth) [place] [address] Benny Solano MD 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 PRO COLONOSCOPY, DIAGNOSTIC N/A 10/26/2016 COLONOSCOPY, DIAGNOSTIC performed by Keyon Cantu MD at [facility] ??? 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 Reportedly,here for evaluation of fatigue, arthralgias. steoarthritis of the knees Tibial ankle pain - Xr T.F wnl, Vit D wnl, possibly referred from knees with oa BMI contributor - intermittent ankle w/o descriptive synovitis makes like Oa [...] 10:30 AM EST Office [place] [address] Benny Solano MD [facility] [place] [address] Scheduled Referrals Name Type Priority Associated Diagnoses Orde r Schedule Referral to Physical Therapy Outpatient Referral Routine Dry eyes Sjogren's syndrome, with unspecified organ involvement Sicca syndrome Pain in peñaloza, unspecified laterality Chronic pain of both ankles Osteoarthritis of right ankle, unspecified osteoarthritis type Ordered: 03/12/2020 documented as of this encounter Visit Diagnoses Diagnosis Dry eyes Tear film insufficiency, unspecified Sjogren's syndrome, with unspecified organ involvement Sicca syndrome Pain in peñaloza, unspecified laterality Chronic pain of both ankles Osteoarthritis of right ankle, unspecified osteoarthritis type documented in this encounter Care Teams Shelver Relationship Specialty Start Date End Date Anthony Samaniego MD [address] [place] [address] PCP - General 07/16/14 documented as of this encounter
--- OUTSIDE RECORDS SUMMARY | 2024-05-17 08:44 | XMS_ITS | Encounter Summary ---
[place] [address] Care Team Providers Care It Auditor Name Role Phone Anthony Samaniego MD Primary Care Provider [phone] Reason for Visit * Reason Comments Medication Refill Encounter Details Date Type Department Care Team (Late Contact Info) Description 09/13/2019 [place] [address] Benny Solano MD [facility] [place] [address] High risk medication use; Inflammatory arthropathy; Vitamin [...] 10:30 AM EST [place] [address] Benny Solano MD [facility] [place] [address] documented as of this encounter Visit Diagnoses Diagnosis High risk medication use Encounter for long-term (current) use of other medications Inflammatory arthropathy Arthropathy, unspecified, site unspecified Vitamin D deficiency Unspecified vitamin D deficiency Dry eyes Tear film insufficiency, unspecified Dry mouth Disturbance of salivary secretion documented in this encounter Care Teams It Auditor Relationship Specialty Start Date End Date Anthony Samaniego MD [address] [place] [address] PCP - General 07/16/14 documented as of this encounter
--- OUTSIDE RECORDS SUMMARY | 2024-05-17 08:44 | XMS_ITS | Encounter Summary ---
[place] [address] Care Team Providers Care Supervisor Rides Name Role Phone Anthony Samaniego MD Primary Care Provider [phone] Encounter Details Date Type Department Care Team (Late st Contact Info) Description 11/02/2018 Telephone [place] [id number] Doris Soria Social History Tobacco Use Types Packs/Day Years [...] encounter Miscellaneous Notes * Telephone Encounter - Doris Soria - 11/02/2018 4:01 PM EST Called pt to schedule ARM, but she doesn't recall talking to Dr. Cain about this test and didn't want to schedule until she heard from him. I messaged Dr. Gómez to please contact pt via portal to let her know the reason for the ARM. Pt is also going to get a hepatology referral and see one of hepatology providers. -bcj documented in this encounter Plan of Treatment Upcoming Encounters Date Type Department Care Team (Late st Contact Info) Description 08/02/2024 10:30 AM EST Office [place] [address] Benny Solano MD [facility] [place] [address] documented as of this encounter Visit Diagnoses Not on filedocumented in this encounter Care Teams Supervisor Rides Relationship Specialty Start Date End Date Anthony Samaniego MD [address] [place] [address] PCP - General 07/16/14 documented as of this encounter
--- OUTSIDE RECORDS SUMMARY | 2024-05-17 08:44 | XMS_ITS | Encounter Summary ---
[place] [address] Care Team Providers Care Flower Pot Press Operator Name Role Phone Anthony Samaniego MD Primary Care Provider [phone] Encounter Details Date Type Department Care Team (Late st Contact Info) Description 11/14/2018 Telephone [place] [phone] Roberta Dempsey, RN Social History Tobacco Use Types Packs/Day [...] encounter Miscellaneous Notes * Telephone Encounter - Roberta Dempsey RN - 11/14/2018 11:56 AM EST Call placed to Ai in response to a voicemail left by pt that she would like a call. No answer, message left documented in this encounter Plan of Treatment Upcoming Encounters Date Type Department Care Team (Late st Contact Info) Description 08/02/2024 10:30 AM EST Office [place] [address] Benny Solano MD [facility] [place] [address] documented as of this encounter Visit Diagnoses Not on filedocumented in this encounter Care Teams Flower Pot Press Operator Relationship Specialty Start Date End Date Anthony Samaniego MD [address] [place] [address] PCP - General 07/16/14 documented as of this encounter
--- OUTSIDE RECORDS SUMMARY | 2024-05-17 08:44 | XMS_ITS | Encounter Summary ---
[place] [address] Care Team Providers Care Cash Register Servicer Name Role Phone Anthony Samaniego MD Primary Care Provider [phone] Reason for Visit * Reason Onset Date Comments Medication Refill 08/05/2019 Encounter Details Date Type Department Care Team (Late st Contact Info) Description 08/05/2019 [place] [phone] Racheal Jessica RN Social History Tobacco Use Types Packs/Day [...] 10:30 AM EST Office [place] [address] Benny Solano MD [facility] [place] [address] documented as of this encounter Visit Diagnoses Not on filedocumented in this encounter Care Teams Cash Register Servicer Relationship Specialty Start Date End Date Anthony Samaniego MD [address] [place] [address] PCP - General 07/16/14 documented as of this encounter
--- OUTSIDE RECORDS SUMMARY | 2024-05-17 08:44 | XMS_ITS | Encounter Summary ---
[place] [address] Care Team Providers Care Rn Midwife Name Role Phone Anthony Samaniego MD Primary Care Provider [phone] Reason for Visit * Reason Comments Medication Refill Encounter Details Date Type Department Care Team (Late Contact Info) Description 11/13/2020 [place] [address] Benny Solano MD [facility] [place] [address] Dry eyes; Sjogren's syndrome, with unspecified organ [...] 10:30 AM EST Office [place] [address] Benny Solano MD [facility] [place] [address] documented as of this encounter Visit Diagnoses Diagnosis Dry eyes Tear film insufficiency, unspecified Sjogren's syndrome, with unspecified organ involvement Sicca syndrome documented in this encounter Care Teams Rn Midwife Relationship Specialty Start Date End Date Anthony Samaniego MD [address] [place] [address] PCP - General 07/16/14 documented as of this encounter
--- OUTSIDE RECORDS SUMMARY | 2024-05-17 08:44 | XMS_ITS | Encounter Summary ---
[place] [address] Care Team Providers Care Supply Chain Tech Name Role Phone Anthony Samaniego MD Primary Care Provider [phone] Encounter Details Date Type Department Care Team (Late st Contact Info) Description 11/14/2018 Telephone [place] [phone] Blanca Meeks Social History Tobacco Use Types Packs/Day Years [...] encounter Miscellaneous Notes * Telephone Encounter - Blanca Meeks - 11/14/2018 9:16 AM EST Pt called in saying she has had elevated liver tests and would like to see someone in liver clinic.She also would like to speak to Dr Powre or have him message her about what motility testing is that he wants done and why Dr. Cain would you mind if I set her up with our liver clinic? Also would you mind reaching out to her explaining why you want the motility testing you ordered documented in this encounter Plan of Treatment Upcoming Encounters Date Type Department Care Team (Late st Contact Info) Description 08/02/2024 10:30 AM EST Office [place] [address] Benny Solano MD [facility] [place] [address] documented as of this encounter Visit Diagnoses Not on filedocumented in this encounter Care Teams Supply Chain Tech Relationship Specialty Start Date End Date Anthony Samaniego MD [address] [place] [address] PCP - General 07/16/14 documented as of this encounter
--- OUTSIDE RECORDS SUMMARY | 2024-05-17 08:44 | XMS_ITS | Encounter Summary ---
[place] [address] Care Team Providers Care Yarn Sorter Name Role Phone Anthony Samaniego MD Primary Care Provider [phone] Encounter Details Date Type Department Care Team (Late st Contact Info) Description 11/23/2018 Telephone [place] [address] Doris Soria Social History Tobacco Use Types [...] * Telephone Encounter - Doris Soria - 11/23/2018 10:39 AM EST ANORECTAL MANOMETRY REFERRAL SHEET 11/23/2018 Doris Morrison [address] [place] [address] [id number] : 1960 REFERRING PROVIDER: gee PRIMARY CARE [...] PREP INSTRUCTIONS: PATIENT AGREES TO BUY TWO [id number] SALINE ENEMAS ([employer], [employer], [employer]) ANDTO COMPLETE ENEMA #1 AT HOME 2 HOURS [...] 10:30 AM EST Office [place] [address] Benny Solano MD [facility] [place] [address] documented as of this encounter Visit Diagnoses Not on filedocumented in this encounter Care Teams Yarn Sorter Relationship Specialty Start Date End Date Anthony Samaniego MD [address] [place] [address] [address] [place] [address] PCP - General 07/16/14 documented as of this encounter
--- OUTSIDE RECORDS SUMMARY | 2024-05-17 08:44 | XMS_ITS | Encounter Summary ---
Author Organization [facility] [place] [address] Care Team Providers Care E Commerce Project Manager Name Role Phone Anthony Samaniego MD Primary Care Provider [phone] Reason for Visit * Diagnostic Test (Routine) - Closed Specialty Diagnoses / Procedures Referred By Lindsey varghese Referred To Contact Radiology Diagnoses Celiac disease/sprue Chronic constipation Sjogren's syndrome, with unspecified organ involvement Procedures NM Gastric Emptying Scan Luca Cain MD [facility] [place] [address] [place] [address] Referral ID Status Reason Start Date Expiration Date V isits Requested Visits Authorized [id number] Closed Specialty Service Requested 08/06/2018 08/06/2019 1 1 Encounter Details Date Type Department Care Team (Late st Contact Info) Description 01/23/2019 8:45 AM EDT - 01/23/2019 11:59 PM EDT Hospital Encounter [place] [address] Luca Cain MD [facility] [place] [address] Discharge Disposition: Home Social History Tobacco Use [...] SOFTENER ORAL) Take by mouth as needed. hydroxychloroquine (PLAQUENIL) 200 mg Tablet Take 1 tablet by mouth 2 times daily for 90 days. 60 tablet 3 01/23/2019 04/23/2019 cholecalciferol, Vitamin D3, 50,000 unit Capsule Take 1 capsule by mouth once monthly 6 capsule 01/23/2019 06/12/2019 cevimeline (EVOXAC) 30 mg Capsule Take 1 capsule by mouth 3 times daily. 90 capsule 3 10/24/2018 03/24/2019 ibuprofen (ADVIL;MOTRIN) 800 mg tablet Take 800 mg by mouth every 6 hours as needed. 11/26/2021 documented as of this encounter Plan of Treatment Upcoming Encounters Date Type Department Care Team (Late st Contact Info) Description 08/02/2024 10:30 AM EST [place] [address] Benny Solano MD [facility] [place] [address] documented as of this encounter Procedures Procedure [...] on filedocumented in this encounter Care Teams E Commerce Project Manager Relationship Specialty Start Date End Date Anthony Samaniego MD [address] [place] [address] PCP - General 07/16/14 documented as of this encounter
--- OUTSIDE RECORDS SUMMARY | 2024-05-17 08:44 | XMS_ITS | Encounter Summary ---
Author Organization [facility] [place] [address] Care Team Providers Care Real Estate Marketing Coordinator Name Role Phone Anthony Samaniego MD Primary Care Provider [phone] Encounter Details Date Type Department Care Team (Late st Contact Info) Description 06/12/2019 9:30 AM EDT Office [place] [address] Benny Solano MD [facility] [place] [address] High risk medication use; Inflammatory arthropathy; Vitamin D deficiency; Dry eyes; Dry mouth; Sjogren's syndrome, with unspecified organ involvement Social [...] 36.6 ??C (97.9 ??F) 06/12/2019 9:22 AM ED T Respiratory Rate - - Oxygen Saturation - - Inhaled Oxygen Concentration - - Weight 106.1 kg (234 lb) 06/12/2019 9:22 AM EDT Height 157.5 cm (5' 2) 06/12/2019 9:22 AM EDT Body Mass Index 42.8 06/12/2019 9:22 AM EDT documented in this encounter Progress Notes * Benny Solano MD - 06/12/2019 9:30 AM EDT Rheumatology Follow-up Note Interval Hx Celica + lip BX SS THIS SHOULD HAVE BEEN AN hour visit but scheudling error Interval 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 PRO COLONOSCOPY, DIAGNOSTIC N/A 10/26/2016 COLONOSCOPY, DIAGNOSTIC performed by Keyon Cantu MD at [facility] ??? SALPINGO-OOPHORECTOMY Family History Problem [...] on phone: None Gets together: None Attends adventism service: None Active member of club or [...] mouth once monthly 12 capsule 0 ??? hydroxychloroquine (PLAQUENIL) 200 mg Tablet Take [...] 1 drink per week. 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 Reportedly, here for evaluation of fatigue, arthralgias. steoarthritis of the knees Fibromyalgia Delayed gastric emptying Peripheral neuropathy Vitamin D deficiency Pain in the legs - OA - possibly some anserine brusitis check vtamin D. OA noted on xr, PT add tylenol, tumeric and [place] 3 fatty acid continue Ibuprofen Sjogren's syndrome(SS) [...] months documented in this encounter Miscellaneous Notes * Addendum Note - Ellen Mae - 06/12/2019 9:30 AM EDTAddended by: ELLEN MAE on: 06/12/2019 10:23 AM Modules accepted: Orders documented in this encounter Plan of Treatment Upcoming Encounters Date Type Department Care Team (Late st Contact Info) Description 08/02/2024 10:30 AM EST Office Visit Rheumatology at [facility] [place] [address] Benny Solano MD [facility] [place] [address] documented as of this encounter Procedures Procedure Name Priority Date/Time Associated Diagnosis Comments HC RANDOM URINE PEP Routine 06/12/2019 1 0:48 AM EDT High risk medication use Inflammatory arthropathy Vitamin D deficiency Dry eyes Dry mouth HC C-REACTIVE PROTEIN Routine 06/12/2019 10:46 AM EDT High risk medication use Inflammatory arthropathy Vitamin D deficiency Dry eyes Dry mouth HEMOGRAM Routine 06/12/2019 10:46 AM EDT High risk medication use Inflammatory arthropathy Vitamin D deficiency Dry eyes Dry mouth DIFFERENTIAL, AUTOMATED Routine 06/12/20 19 10:46 AM EDT High risk medication use Inflammatory arthropathy Vitamin D deficiency Dry eyes Dry mouth HC CREATININE Routine 06/12/2019 10:46 AM EDT High risk medication use Inflammatory arthropathy Vitamin D deficiency Dry eyes Dry mouth HC CRYOGLOBULIN Routine 06/12/2019 10:46 AM EDT High risk medication use Inflammatory arthropathy Vitamin D deficiency Dry eyes Dry mouth HC VENIPUNCTURE Routine 06/12/2019 10:46 AM EDT High risk medication use Inflammatory arthropathy Vitamin D deficiency Dry eyes Dry mouth HC ESR-SEDIMENTATION RATE, BLOOD Routine 06/12/2019 10:46 AM EDT High risk medication use Inflammatory arthropathy Vitamin D deficiency Dry eyes Dry mouth HC CBC,PLT & AUTO DIFF Routine 9 10:46 AM EDT High risk medication use Inflammatory arthropathy Vitamin D deficiency Dry eyes Dry mouth HC RHEUMATOID FACTOR Routine 06/12/2019 10:46 AM EDT High risk medication use Inflammatory arthropathy Vitamin D deficiency Dry eyes Dry mouth HC COMPLEMENT,C3 SERUM Routine 9 10:46 AM EDT High risk medication use Inflammatory arthropathy Vitamin D deficiency Dry eyes Dry mouth HC COMPLEMENT C4, PLASMA Routine 06/12/2019 10:46 AM EDT High risk medication use Inflammatory arthropathy Vitamin D deficiency Dry eyes Dry mouth HC URIC ACID, SERUM Routine 06/12/2019 1 0:46 AM EDT High risk medication use Inflammatory arthropathy Vitamin D deficiency Dry eyes Dry mouth HC SERUM PROT. ELECTROPHORESIS Routine 06/12/2019 10:46 AM EDT High risk medication use Inflammatory arthropathy Vitamin D deficiency Dry eyes Dry mouth HEPATIC FUNCTION PANEL Routine 9 10:46 AM EDT High risk medication use Inflammatory arthropathy Vitamin D deficiency Dry eyes Dry mouth documented in this encounter Results * Protein Electrophoresis, urine, random (06/12/2019 10:48 AM EDT) Protein, Urine <6 0 - 12 mg/dL [facility] Comment:rechecked-ds U Albumin 41 % total [facility] Globulin, Urine 59 % total [facility] M1 Band, Urine None Detected [facility] UPEP Comments See Note [facility] Comment: There is no evidence of clonal free light chains in this patient's urine sample. Urine specimen (specimen) 06/12/2019 10:48 AM EDT 06/12/2019 10:55 AM EDT Narrative Resulting Agency Comment Spec In Lab Benny Solano MD URINE ORDERABLES Performing Organization Address City/[facility]/ZIP Co de Phone Number [facility] [place] [address] * Differential, Automated (06/12/2019 10:46 AM EDT) Neutrophil % 56.1 % [facility] Neutrophil Absolute 2.62 1.70 - 6.10 x10(3)/[facility] Lymph % 31.3 % [facility] Lymphocytes Abs 1.5 0.9 - 3.2 x10(3)/[facility] Monocyte % 7.9 % [facility] Monocyte Abs 0.4 0.3 - 0.9 x10(3)/[facility] Eos % 3.6 % [facility] Eosinophils Abs 0.2 0.0 - 0.4 x10(3)/[facility] Basophil % 0.9 % [facility] Baso Absolute 0.0 0.0 - 0.1 x10(3)/[facility] Immature Gran % 0.20 % [facility] Comment: Immature granulocytes(IG's)percentage and absolute count will include metamyelocytes, myelocytes, and promyelocytes. Blood smears from CBCs yielding IG's will be scanned manually for concordance. If this scan disagrees with the automated IG or if promyelocytes are noted, a manual differential will be performed. Immature Gran Absolute 0.01 0.00 - 0.04 x10(3)/[facility] Blood specimen (specimen) 06/12/2019 10:46 AM EDT 06/12/2019 10:54 AM EDT Narrative Resulting Agency Comment Spec In Lab Benny Solano MD HEMATOLOGY ORDERABLE S Performing Organization Address City/[facility]/ZIP Co de Phone Number [facility] [place] [address] * (ABNORMAL) Hemogram (06/12/2019 10:46 AM EDT) Pathologist [facility] White Blood Cell 4.7 4.0 - 9.5 x10(3)/ L [facility] Red Blood Cell 3.71(L) 4.00 - 5.21 x10(6)/mc L [facility] Hemoglobin 12.4 11.7 - 15.5 gm/dL [facility] Hematocrit 37.8 35.7 - 45.8 % [facility] Mean Cell Volume 101.9(H) 82.6 - 94.4 fL [facility] Mean Cell Hemoglobin 33.4(H) 27.1 - 32.0 pg [facility] Mean Cell Hemoglobin Concentration 32.8 31.7 - 35.0 gm/dL [facility] Platelet 250 145 - 357 x10(3)/[facility] RDW Standard Deviation 51.1(H) 37.0 - 46.0 fL [facility] RDW coefficient of variation 13.3 11.5 - 14.1 % [facility] Mean Platelet Volume 10.4 7.6 - 12.9 fL [facility] NRBC% auto 0.0 % [facility] NRBC Absolute 0.000 0.000 - 0.000 x10(3)/[facility] Blood specimen (specimen) 06/12/2019 10:46 AM EDT 06/12/2019 10:54 AM EDT Narrative Resulting Agency Comment Spec In Lab Benny Solano MD HEMATOLOGY ORDERABLE S [facility] [place] [address] * CRP, acute inflammation (06/12/2019 10:46 AM EDT) Pathologist [facility] C-Reactive Protein 2.3 <=4.9 mg/L [facility] Blood specimen (specimen) 06/12/2019 10:46 AM EDT 06/12/2019 10:53 AM EDT Narrative Resulting Agency Comment Spec In Lab Benny Solano MD CHEMISTRY ORDERABLES Performing Organization Address [facility] Co de Phone Number [facility] [place] [address] * Hepatic Function Panel (06/12/2019 10:46 AM EDT) Protein, Total 7.7 6.1 - 8.0 gm/dL [facility] Albumin 4.3 3.2 - 5.2 gm/dL [facility] Aspartate Aminotransferase 16 0 - 30 unit/L [facility] Alanine Aminotransferase 9 0 - 30 unit/L [facility] Alkaline Phosphatase 96 35 - 105 unit/L [facility] Bilirubin, Total 0.3 0.2 - 1.3 mg/dL [facility] Bilirubin, Direct 0.1 0.0 - 0.3 mg/dL [facility] Blood specimen (specimen) 06/12/2019 10:46 AM EDT 06/12/2019 10:53 AM EDT Narrative Resulting Agency Comment Spec In Lab Benny Solano MD CHEMISTRY ORDERABLES Performing Organization Address [facility] de Phone Number [facility] [place] [address] * Creatinine (06/12/2019 10:46 AM EDT) Creatinine 0.91 0.70 - 1.20 mg/dL [facility] Est Glomerular Filtration Rate 69 >=60 mL/min/1.7 3 m?? [facility] Comment: The eGFR was calculated using the CKD-EPI equation. As with all creatinine based estimates of kidney function, eGFR values calculated with the CKD-EPI equation are not accurate in patients with acute kidney failure, extremes of body mass or the acutely ill. http://[employer]/DHnkf eGFR 80 >=60 mL/min/1.7 3 m?? [facility] Comment: The eGFR was calculated using the CKD-EPI equation. As with all creatinine based estimates of kidney function, eGFR values calculated with the CKD-EPI equation are not accurate in patients with acute kidney failure, extremes of body mass or the acutely ill. http://[employer]DHMCnkf Blood specimen (specimen) 06/12/2019 10:46 AM EDT 06/12/2019 10:53 AM EDT Narrative Resulting Agency Comment Spec In Lab Benny Solano MD CHEMISTRY ORDERABLES Performing Organization Address City/[facility] Co de Phone Number [facility] [place] [address] * Sedimentation rate (06/12/2019 10:46 AM EDT) Sedimentation Rate Automated 18 0 - 20 mm/hr [facility] Blood specimen (specimen) 06/12/2019 10:46 AM EDT 06/12/2019 10:54 AM EDT Narrative Resulting Agency Comment Spec In Lab Benny Solano MD HEMATOLOGY ORDERABLE S Performing Organization Address [facility] Co de Phone Number [facility] [place] [address] * Uric acid (06/12/2019 10:46 AM EDT) Uric Acid 4.3 2.5 - 6.5 mg/dL [facility] Blood specimen (specimen) 06/12/2019 10:46 AM EDT 06/12/2019 10:53 AM EDT Narrative Resulting Agency Comment Spec In Lab Benny Solano MD CHEMISTRY ORDERABLES Performing Organization Address [facility] Co de Phone Number [facility] [place] [address] * Vitamin D, 25-Hydroxy (06/12/2019 10:46 AM EDT) Vitamin D Total 25 OH 48 30 - 100 ng/mL [facility] Comment: As of 2019, 25-hydroxyvitamin D testing has moved from the [employer] to the Marcelle Bridget. No substantial change in measured values is expected. Blood specimen (specimen) 06/12/2019 10:46 AM EDT 06/12/2019 10:53 AM EDT Narrative Resulting Agency Comment Spec In Lab Benny Solano MD CHEMISTRY ORDERABLES Performing Organization Address [facility]/ZIP Co de Phone Number [facility] [place] [address] * Protein Electrophoresis, serum (06/12/2019 10:46 AM EDT) Total Prot Electrophoresis 7.2 6.1 - 8.0 gm/dL [facility] Albumin Electrophoresis 4.45 3.60 - 6.00 gm/dL [facility] Alpha 1 Globulin 0.17 0.10 - 0.30 gm/dL [facility] Alpha 2 Globulin 0.83 0.40 - 0.90 gm/dL [facility] Beta Globulin 0.76 0.50 - 1.00 gm/dL [facility] Gamma Globulin 0.99 0.50 - 1.30 gm/dL [facility] M1 Band None Detected None Detected [facility] Blood specimen (specimen) 06/12/2019 10:46 AM EDT 06/12/2019 10:54 AM EDT Narrative Resulting Agency Comment Spec In Lab Benny Solano MD CHEMISTRY ORDERABLES Performing Organization Address City/[facility] Co de Phone Number [facility] [place] [address] * Rheumatoid factor, quant (06/12/2019 10:46 AM EDT) Rheumatoid Factor <10 <=14 IU/mL [facility] Blood specimen (specimen) 06/12/2019 10:46 AM EDT 06/12/2019 10:53 AM EDT Narrative Resulting Agency Comment Spec In Lab Benny Solano MD CHEMISTRY ORDERABLES Performing Organization Address City/[facility]/ZIP Co de Phone Number [facility] [place] [address] * Cryoglobulin (06/12/2019 10:46 AM EDT) Cryoglobulin See Note [facility] Comment: Cryoglobulins negative at 24 and 72 hours. Identification of cryoglobulins is dependent upon appropriate sample handling. False negative results may occur if the proper sample handling steps are not followed. This test was developed and its performance characteristics determined by [facility]. It has not been cleared or approved by the FDA. The laboratory is regulated under CLIA as qualified to perform high-complexity testing. This test is used for clinical purposes. It should not be regarded as investigational or for research. Blood specimen (specimen) 06/12/2019 10:46 AM EDT 06/12/2019 10:52 AM EDT Narrative Resulting Agency Comment Spec In Lab Benny Solano MD CHEMISTRY ORDERABLES Performing Organization Address [facility] Co de Phone Number [facility] [place] [address] * C4 Complement (06/12/2019 10:46 AM EDT) Complement C4 26 10 - 40 mg/dL [facility] Blood specimen (specimen) 06/12/2019 10:46 AM EDT 06/12/2019 10:53 AM EDT Narrative Resulting Agency Comment Spec In Lab Benny Solano MD CHEMISTRY ORDERABLES Performing Organization Address City/[facility]/ZIP Co de Phone Number [facility] [place] [address] * C3 Complement (06/12/2019 10:46 AM EDT) Complement C3 134 90 - 180 mg/dL [facility] Blood specimen (specimen) 06/12/2019 10:46 AM EDT 06/12/2019 10:53 AM EDT Narrative Resulting Agency Comment Spec In Lab Benny Solano MD CHEMISTRY ORDERABLES [facility] [place] [address] documented in this encounter Visit Diagnoses Diagnosis High risk medication use Encounter for long-term (current) use of other medications Inflammatory arthropathy Arthropathy, unspecified, site unspecified Vitamin D deficiency Unspecified vitamin D deficiency Dry eyes Tear film insufficiency, unspecified Dry mouth Disturbance of salivary secretion Sjogren's syndrome, with unspecified organ involvement documented in this encounter Care Teams Real Estate Marketing Coordinator Relationship Specialty Start Date End Date Anthony Samaniego MD [address] [place] [address] PCP - General 07/16/14 documented as of this encounter
--- OUTSIDE RECORDS SUMMARY | 2024-05-17 08:44 | XMS_ITS | Encounter Summary ---
Author Organization [place] [address] Care Team Providers Care Mine Engineer Name Role Phone Anthony Samaniego MD Primary Care Provider [phone] Reason for Referral * Diagnostic Test (Routine) - Closed Specialty Diagnoses / Procedures Referred By Contac t Referred To Contact Radiology Diagnoses Celiac disease/sprue Chronic constipation Sjogren's syndrome, with unspecified organ involvement Procedures NM Gastric Emptying Scan Luca Cain MD [facility] [place] [place] [address] [place] [address] Referral ID Status Reason Start Date Expiration Date V isits Requested Visits Authorized [id number] Closed Specialty Service Requested 08/06/2018 08/06/2019 1 1 Reason for Visit * Diagnostic Test (Routine) - Closed Specialty Diagnoses / Procedures Referred By Contac t Referred To Contact Radiology Diagnoses Celiac disease/sprue Chronic constipation Sjogren's syndrome, with unspecified organ involvement Procedures NM Gastric Emptying Scan Luca Cain MD [facility] [place] [place] [address] [place] [address] Referral ID Status Reason Start Date Expiration Date V isits Requested Visits Authorized [id number] Closed Specialty Service Requested 08/06/2018 08/06/2019 1 1 Encounter Details Date Type Department Care Team (Late st Contact Info) Description 01/23/2019 8:43 AM EDT Hospital Encounter [place] [address] Luca Cain MD [facility] [place] [address] Celiac disease/sprue; Chronic constipation; Sjogren's syndrome, with unspecified organ involvement Discharge Disposition: Home Social History Tobacco Use [...] 10:30 AM EST [place] [address] Benny Solano MD [facility] [place] [address] documented as of this encounter Procedures Procedure [...] the number below. ? Electronically signed by: Richard Layton [facility] ([phone]), at 01/23/2019 5:05 PM Narrative 01/23/2019 5:05 [...] contact the number below. Electronically signed by: Richard Layton [facility]([phone]), at 01/23/2019 5:05 PM Luca Cain MD [facility] ORDER[place]LES documented in this encounter Visit Diagnoses Diagnosis Celiac disease/sprue Celiac disease Chronic constipation Unspecified constipation Sjogren's syndrome, with unspecified organ involvement documented in this encounter Administered Medications Inactive Administered Medications - up to 3 most recent administrations Medication Order MAR Action Action Date Dose Rate Site technetium (Tc-99m) sulfur colloid injection 0.6 mCi 0.6 mCi, Oral, ONCE PRN, 1 dose, Starting on Mon01/23/19 at 0915, Until Mon01/23/19 at 0915, Per Protocol, Routine Given 01/23/2019 9:15 AM EDT 0.6 mCi documented in this encounter Care Teams Mine Engineer Relationship Specialty Start Date End Date Anthony Samaniego MD [address] [place] [address] [address] [facility] [address] [place] [address] PCP - General 07/16/14 documented as of this encounter
--- OUTSIDE RECORDS SUMMARY | 2024-05-17 08:44 | XMS_ITS | Encounter Summary ---
[place] [address] Care Team Providers Care Collection Development Librarian Name Role Phone Anthony Samaniego MD Primary Care Provider [phone] Encounter Details Date Type Department Care Team (Late st Contact Info) Description 11/18/2020 Telephone [place] [id number] Graciela Torres, RN Social History Tobacco Use Types Packs/Day [...] TID. Ai states she has been having increased discomfort and feels as though she would like to increase the Gabapentin. Reviewed notes and Dr. Solano advised 900 mg TID max dose. I have advised Ai to try an [id number] mg at [facility] and see if this [...] finished what she had. Last Vitamin D resultwas 46. No recheck done in over a year. Ai advises she can have labs done at [facility]. Will check with provider to see if he would like Ai to have any labs done. documented in this encounter Plan of Treatment Upcoming Encounters Date Type Department Care Team (Late st Contact Info) Description 08/02/2024 10:30 AM EST Office [place] [address] Benny Solano MD [facility] [place] [address] documented as of this encounter Visit Diagnoses Not on filedocumented in this encounter Care Teams Collection Development Librarian Relationship Specialty Start Date End Date Anthony Samaniego MD [address] [place] [address] PCP - General 07/16/14 documented as of this encounter
--- OUTSIDE RECORDS SUMMARY | 2024-05-17 08:44 | XMS_ITS | Encounter Summary ---
[place] [address] Care Team Providers Care Cage/Vault Supervisor Name Role Phone Anthony Samaniego MD Primary Care Provider [phone] Reason for Visit * Reason Onset Date Comments Medication Refill 11/16/2020 Encounter Details Date Type Department Care Team (Late st Contact Info) Description 11/16/2020 [place] [address] Benny Solano MD [facility] [place] [address] Dry eyes; Sjogren's syndrome, with unspecified organ involvement; Sicca syndrome; High risk medication use; Inflammatory arthropathy; Vitamin D deficiency; Dry mouth [...] 10:30 AM EST Office [place] [address] Benny Solano MD [facility] [place] [address] documented as of this encounter Visit Diagnoses Diagnosis Dry eyes Tear film insufficiency, unspecified Sjogren's syndrome, with unspecified organ involvement Sicca syndrome High risk medication use Encounter for long-term (current) use of other medications Inflammatory arthropathy Arthropathy, unspecified, site unspecified Vitamin D deficiency Unspecified vitamin D deficiency Dry mouth Disturbance of salivary secretion documented in this encounter Care Teams Cage/Vault Supervisor Relationship Specialty Start Date End Date Anthony Samaniego MD [address] [place] [address] PCP - General 07/16/14 documented as of this encounter
--- OUTSIDE RECORDS SUMMARY | 2024-05-17 08:44 | XMS_ITS | Encounter Summary ---
[place] [address] Care Team Providers Care Document Review Attorney Name Role Phone Anthony Samaniego MD Primary Care Provider [phone] Reason for Visit * Reason Onset Date Comments Medication Refill 06/03/2019 Encounter Details Date Type Department Care Team (Late st Contact Info) Description 06/03/2019 [place] [address] Graciela Torres, RN Social History Tobacco Use [...] I advised to continue until her visit withDr. Solano. Ai wants Rx for 2 weeks [...] 10:30 AM EST Office [place] [address] Benny Solano MD [facility] [place] [address] documented as of this encounter Visit Diagnoses Not on filedocumented in this encounter Care Teams Document Review Attorney Relationship Specialty Start Date End Date Anthony Samaniego MD [address] [place] [address] PCP - General 07/16/14 documented as of this encounter
--- OUTSIDE RECORDS SUMMARY | 2024-05-17 08:44 | XMS_ITS | Encounter Summary ---
[place] [address] Care Team Providers Care Mold Yard Supervisor Name Role Phone Anthony Samaniego MD Primary Care Provider [phone] Reason for Visit * Reason Comments Medication Refill Encounter Details Date Type Department Care Team (Late Contact Info) Description 04/05/2020 [place] [phone] Benny Solano MD [facility] [place] [address] Social History Tobacco Use Types Packs/Day Years [...] 10:30 AM EST Office [place] [address] Benny Solano MD [facility] [place] [address] documented as of this encounter Visit Diagnoses Not on filedocumented in this encounter Care Teams Mold Yard Supervisor Relationship Specialty Start Date End Date Anthony Samaniego MD [address] [place] [address] PCP - General 07/16/14 documented as of this encounter
--- OUTSIDE RECORDS SUMMARY | 2024-05-17 08:44 | XMS_ITS | Encounter Summary ---
Author Organization [facility] [place] [address] Care Team Providers Care Human Resources Hr Generalist Name Role Phone Anthony Samaniego MD Primary Care Provider [phone] [phone] Reason for Referral * Physical Therapy (Routine) - Closed Specialty Diagnoses / Procedures Referred By Lindsey varhgese Referred To Contact Diagnoses Fatigue, unspecified type Myalgia, other site Patty Hebert MD [facility] [place] [address] Physical Therapy, [address] [address] Referral ID Status Reason Start Date Expiration Date V isits Requested Visits Authorized [id number] Closed Evaluate and Treat 01/23/2019 07/22/2019 12 12 Encounter Details Date Type Department Care Team (Latest Contact Info) Description 01/23/2019 8:00 AM EDT Office [place] [address] Patty Hebert MD [facility] [place] [address] Fatigue, unspecified type; Sjogren's syndrome, with unspecified organ involvement; Delayed gastric emptying; Myalgia, other site; Osteoarthritis, unspecified osteoarthritis type, unspecified site; Sicca, unspecified type Social History Tobacco Use Types Packs/Day [...] 36.5 ??C (97.7 ??F) 01/23/2019 7:57 AM ED T Respiratory Rate - - Oxygen Saturation 98% 01/23/2019 7:57 AM EDT Inhaled Oxygen Concentration - - Weight 107 kg (236 lb) 01/23/2019 7:57 AM EDT Height 157.5 cm (5' 2) 01/23/2019 7:57 AM EDT Body Mass Index 43.16 01/23/2019 7:57 AM EDT documented in this encounter Progress Notes * Patty Hebert MD - 01/23/2019 8:00 AM EDT Rheumatology Follow-up Note HPI: Ms. 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 Reportedly, here for evaluation of fatigue, arthralgias. Endorses reading about Sjogren's disease. Dry eyes and dry mouth and wonders if she has Sjogren's disease, onset of symptoms years ago ([id number]) gradually worsening since July 2018. Started prescription [...] pain she has celiac disease with predominantly constipation. Morbid obesity Joint pain is the most bothering [...] may be coincidental however as it might not be effective, discontinued. Cevimeline helps with dry mouth. [...] long duration standing because of profession) is fromosteoarthritis. No evidence of swelling. More of bone [...] smoker. 1 drink per week. Works as global creative chairman for about 40 years. Family Hx: [...] No active synovitis. 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 B/L MCP compression tenderness. B/L knee crepitus R>L FROM in all joints. No lymphadenopathy / FM tender points. 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 Reportedly, here for evaluation of fatigue, arthralgias.Referred by PCP for evaluation of dry eyes and dry mouth. During dental appointment, she was noticed to have dry mouth and a question of Sjogren's syndrome was was brought up. RUQ pain, chronic since surgery for cholecystectomy about 5 years ago ROS otherwise negative for CTD, Mouth sores (uncomfortable) lasting for 2 days intermittently sinceNovember. No evidence of inflammatory arthritis. Fatigue for [...] vitamin D level start cholecalciferol 50,000 units once weekly for 8 weeks then once monthly. GI manifestations in SS include dysphagia, nausea, dyspepsia and gastritis, celiac disease hepatic abnormalities (and usually) subclinical pancreatic disease. SS is associated with hepatic abnormalities including abnormal tests and histological changes of primary biliary cholangitis(PBC) or autoimmune hepatitis(AIH) LFT abnormalities can be hepatocellular or predominantly cholestatic in pattern. However, clinically overt PBC is found in less than 2% of SS patients Antimitochondrial and anti-smooth muscle antibodies were present, respectively 8 and 62% of patients, raising the possibility that subclinical autoimmune liver disease is more common in SS, however not all patients with SS with antimitochondrial antibodies have clinical evidence of liver disease. AMA antibodies are also associated with Raynaud's phenomenon, hypogammaglobulinemia [...] non-Hodgkin's lymphoma compared with the general population up to 5% Fibromyalgia Discussed in detail about fibromyalgia. [...] 10:30 AM EST Office [place] [address] Benny Solano MD [facility] [place] [address] Scheduled Referrals Name Type Priority Associated Diagnoses Orde r Schedule Referral to Physical Therapy Outpatient Referral Routine Fatigue, unspecified type Myalgia, other site Ordered: 01/23/2019 documented as of this encounter Procedures Procedure Name Priority Date/Time Associated Diagnosis Comments CRP, ACUTE INFLAMMATION Routine 01/23/2019 10:43 AM EDT Fatigue, unspecified type Sjogren's syndrome, with unspecified organ involvement CENTROMERE ANTIBODY Routine 01/23/2019 1 0:43 AM EDT Fatigue, unspecified type Sjogren's syndrome, with unspecified organ involvement Delayed gastric emptying HEMOGRAM Routine 01/23/2019 10:43 AM EDT Fatigue, unspecified type Sjogren's syndrome, with unspecified organ involvement DIFFERENTIAL, AUTOMATED Routine 01/23/2019 10:43 AM EDT Fatigue, unspecified type Sjogren's syndrome, with unspecified organ involvement VITAMIN D, 25-HYDROXY Routine 01/23/2019 10:43 AM EDT Fatigue, unspecified type Sjogren's syndrome, with unspecified organ involvement SEDIMENTATION RATE Routine 01/23/2019 10 :43 AM EDT Fatigue, unspecified type Sjogren's syndrome, with unspecified organ involvement CBC (WITH DIFF) Routine 01/23/2019 10:43 AM EDT Fatigue, unspecified type Sjogren's syndrome, with unspecified organ involvement TSH Routine 01/23/2019 10:43 AM EDT Fatigue, unspecified type Sjogren's syndrome, with unspecified organ involvement VITAMIN B12 Routine 01/23/2019 10:43 AM EDT Fatigue, unspecified type Sjogren's syndrome, with unspecified organ involvement COMPREHENSIVE METABOLIC PANEL Routine 01/23/2019 10:43 AM EDT Fatigue, unspecified type Sjogren's syndrome, with unspecified organ involvement documented in this encounter Results * Differential, Automated (01/23/2019 10:43 AM EDT) Neutrophil % 56.5 % [facility] Neutrophil Absolute 3.25 1.70 - 6.10 x10(3)/[facility] Lymph % 33.5 % [facility] Lymphocytes Abs 1.9 0.9 - 3.2 x10(3)/[facility] Monocyte % 6.9 % [facility] Monocyte Abs 0.4 0.3 - 0.9 x10(3)/[facility] Eos % 2.1 % [facility] Eosinophils Abs 0.1 0.0 - 0.4 x10(3)/[facility] Basophil % 0.7 % [facility] Baso Absolute 0.0 0.0 - 0.1 x10(3)/[facility] Immature Gran % 0.30 % [facility] Comment: Immature granulocytes(IG's)percentage and absolute count will include metamyelocytes, myelocytes, and promyelocytes. Blood smears from CBCs yielding IG's will be scanned manually for concordance. If this scan disagrees with the automated IG or if promyelocytes are noted, a manual differential will be performed. Immature Gran Absolute 0.02 0.00 - 0.04 x10(3)/[facility] Blood specimen (specimen) 01/23/2019 10:43 AM EDT 01/23/2019 10:53 AM EDT Narrative Resulting Agency Comment Spec In Lab Patty Hebert MD HEMATOLOGY ORDERABLE S [facility] [place] [address] * (ABNORMAL) Hemogram (01/23/2019 10:43 AM EDT) White Blood Cell 5.8 4.0 - 9.5 x10(3)/mc L [facility] Red Blood Cell 3.87(L) 4.00 - 5.21 x10(6)/mc L [facility] Hemoglobin 12.4 11.7 - 15.5 gm/dL [facility] Hematocrit 38.5 35.7 - 45.8 % [facility] Mean Cell Volume 99.5(H) 82.6 - 94.4 fL [facility] Mean Cell Hemoglobin 32.0 27.1 - 32.0 pg [facility] Mean Cell Hemoglobin Concentration 32.2 31.7 - 35.0 gm/dL [facility] Platelet 283 145 - 357 x10(3)/mc L [facility] RDW Standard Deviation 47.8(H) 37.0 - 46.0 [facility] RDW coefficient of variation 13.1 11.5 - 14.1 % [facility] Mean Platelet Volume 10.7 7.6 - 12.9 [facility] NRBC% auto 0.0 % [facility] NRBC Absolute 0.000 0.000 - 0.000 x10(3)/mc L [facility] Blood specimen (specimen) 01/23/2019 10:43 AM EDT 01/23/2019 10:53 AM EDT Narrative Resulting Agency Comment Spec In Lab Patty Hebert MD HEMATOLOGY ORDERABLE S Performing Organization Address City/[facility]/ZIP Co de Phone Number [facility] [place] [address] * Centromere Antibody (01/23/2019 10:43 AM EDT) Pathologist [facility] Centromere Ab <0.2 <1.0 (Negative) U [facility] Comment: Test Performed by: [facility] [address] [place] [address] Blood specimen (specimen) 01/23/2019 10:43 AM EDT 01/23/2019 1:58 PM EDT Narrative Resulting Agency Comment Spec In Lab Patty Hebert MD LAB SEND OUT ORDERAB LES [facility] [place] [address] * Vitamin B12 (01/23/2019 10:43 AM EDT) [facility] Vitamin B12 600 232 - 1,245 pg/mL [facility] Blood specimen (specimen) 01/23/2019 10:43 AM EDT 01/23/2019 10:53 AM EDT Narrative Resulting Agency Comment Spec In Lab Patty Hebert MD CHEMISTRY ORDERABLES Performing Organization Address City/[facility]/ZIP Co de Phone Number [facility] [place] [address] * Vitamin D, 25-Hydroxy (01/23/2019 10:43 AM EDT) Vitamin D Total 25 OH 35 30 - 100 ng/mL [facility] Comment: Deficient <10 ng/mL Insufficient 10 to 29 ng/mL Sufficient 30 to 100 ng/mL Potential Intoxication >100 ng/mL According to the [place] National Osteoporosis Foundation, Vitamin D concentrations >30 ng/mL are sufficient to protect bone health. ??The National Kidney Foundation has similarly stated that patients with Vitamin D concentrations <30ng/mL should be considered to be insufficient or deficient. http://[employer]/nkf-guidelines http://[employer]/nejm-VitD The [employer] iSYS Vitamin D Immunoassay detects both 25-OH Vitamin D2 and 25-OH Vitamin D3, but only a total Vitamin D concentration is reported. Blood specimen (specimen) 01/23/2019 10:43 AM EDT 01/23/2019 1:36 PM EDT Narrative Resulting Agency Comment Spec In Lab Patty Hebert MD CHEMISTRY ORDERABLES Performing Organization Address [facility]/ZIP Co de Phone Number [facility] [place] [address] * TSH (01/23/2019 10:43 AM EDT) Thyroid Stimulating Hormone 2.09 0.27 - 4.20 mcIU/mL [facility] Blood specimen (specimen) 01/23/2019 10:43 AM EDT 01/23/2019 10:53 AM EDT Narrative Resulting Agency Comment Spec In Lab Patty Hebert MD CHEMISTRY ORDERABLES Performing Organization Address City/[facility]/ZIP Co de Phone Number [facility] [place] [address] * CRP, acute inflammation (01/23/2019 10:43 AM EDT) C-Reactive Protein 3.0 <=4.9 mg/L [facility] Blood specimen (specimen) 01/23/2019 10:43 AM EDT 01/23/2019 10:53 AM EDT Narrative Resulting Agency Comment Spec In Lab Patty Hebert MD CHEMISTRY ORDERABLES Performing Organization Address City/[facility]/ZIP Co de Phone Number [facility] [place] [address] * (ABNORMAL) Sedimentation rate (01/23/2019 10:43 AM EDT) Pathologist [facility] Sedimentation Rate Automated 23(H) 0 - 20 mm/hr [facility] Blood specimen (specimen) 01/23/2019 10:43 AM EDT 01/23/2019 10:53 AM EDT Narrative Resulting Agency Comment Spec In Lab Patty Hebert MD HEMATOLOGY ORDERABLE S Performing Organization Address City/[facility]/ZIP Co de Phone Number [facility] [place] [address] * Comprehensive metabolic panel (non-fasting) (01/23/2019 10:43 AM EDT) Glucose 84 65 - 199 mg/dL [facility] Comment:Diabetes: >=200 mg/d L plus symptoms Blood Urea Nitrogen 17 8 - 18 mg/dL [facility] Creatinine 0.86 0.70 - 1.20 mg/dL [facility] Sodium 142 135 - 145 mmol/L [facility] Potassium 4.2 3.5 - 5.0 mmol/L [facility] Comment: Please note: ??Patients with WBC >100,000 may have falsely elevated Potassium levels. ??For accurate Potassium quantification in these patients send serum separator tube (gold top) for subsequent determinations. ??Contact the Clinical Chemistry Laboratory if there are any questions. Chloride 105 98 - 107 mmol/L [facility] Carbon Dioxide 28 22 - 31 mmol/L [facility] Anion Gap 9 5 - 15 mmol/L [facility] Calcium 9.5 8.5 - 10.5 mg/dL [facility] Protein, Total 7.5 6.1 - 8.0 gm/dL [facility] Albumin 4.3 3.2 - 5.2 gm/dL [facility] Aspartate Aminotransferase 17 0 - 30 unit/L [facility] Alanine Aminotransferase 17 0 - 30 unit/L [facility] Alkaline Phosphatase 104 40 - 104 unit/L [facility] Bilirubin, Total 0.3 0.2 - 1.3 mg/dL [facility] Est Glomerular Filtration Rate 74 >=60 mL/min/1. 73 m?? [facility] Comment: The eGFR was calculated using the CKD-EPI equation. As with all creatinine based estimates of kidney function, eGFR values calculated with the CKD-EPI equation are not accurate in patients with acute kidney failure, extremes of body mass or the acutely ill. http://[employer]/DHMCnkf eGFR 86 >=60 mL/min/1. 73 m?? [facility] Comment: The eGFR was calculated using the CKD-EPI equation. As with all creatinine based estimates of kidney function, eGFR values calculated with the CKD-EPI equation are not accurate in patients with acute kidney failure, extremes of body mass or the acutely ill. http://[employer]/DHMCnkf Blood specimen (specimen) 01/23/2019 10:43 AM EDT 01/23/2019 10:53 AM EDT Narrative Resulting Agency Comment Spec In Lab Patty Hebetr MD CHEMISTRY ORDERABLES [facility] [place] [address] documented in this encounter Visit Diagnoses Diagnosis Fatigue, unspecified type Sjogren's syndrome, with unspecified organ involvement Delayed gastric emptying Dyspepsia and other specified disorders of function of stomach Myalgia, other site Osteoarthritis, unspecified osteoarthritis type, unspecified site Sicca, unspecified type documented in this encounter Care Teams Human Resources Hr Generalist Relationship Specialty Start Date End Date Anthony Samaniego MD [address] [facility] [address] [place] [address] PCP - General 07/16/14 documented as of this encounter
--- OUTSIDE RECORDS SUMMARY | 2024-05-17 08:44 | XMS_ITS | Encounter Summary ---
[place] [address] Care Team Providers Care Pbx Operator Name Role Phone Anthony Samaniego MD Primary Care Provider [phone] Encounter Details Date Type Department Care Team (Late st Contact Info) Description 03/11/2020 Telephone [place] [phone] Wendy Martinez, [facility] Social History Tobacco Use Types Packs/Day Years [...] encounter Miscellaneous Notes * Telephone Encounter - Wendy Martinez, [facility] - 03/11/2020 10:16 AM EDT [facility] Pl[facility] Surgery Specialist Pre-Telemedicine Phone Note [x] Patient not reached [] Patient reached and the following information was reviewed/obtained per protocol: [] Confirmed patient name and date of [] Confirmed telemedicine shaggy (Vidyo and Virtual Visit) is downloaded and functioning [] Confirmed location of patient - TeleVisit is taking place in [] [place] [] [place] [] If not on myD, working on signing up for [facility] [] Confirmed has completed any pre-visit questionnaires [...] 10:30 AM EST Office [place] [address] Benny Solano MD [facility] [place] [address] documented as of this encounter Visit Diagnoses Not on filedocumented in this encounter Care Teams Pbx Operator Relationship Specialty Start Date End Date Anthony Samaniego MD [address] [place] [address] PCP - General 07/16/14 documented as of this encounter
--- OUTSIDE RECORDS SUMMARY | 2024-05-17 08:44 | XMS_ITS | Encounter Summary ---
[place] [address] Care Team Providers Care Solar Site Assessment Specialist Name Role Phone Anthony Samaniego MD Primary Care Provider [phone] Encounter Details Date Type Department Care Team (Late st Contact Info) Description 01/15/2019 Telephone [place] [phone] Roberta Dempsey RN Social History Tobacco Use Types Packs/Day [...] 10:30 AM EST Office [place] [address] Benny Solano MD [facility] [place] [address] documented as of this encounter Visit Diagnoses Not on filedocumented in this encounter Care Teams Solar Site Assessment Specialist Relationship Specialty Start Date End Date Anthony Samaniego MD [address] [place] [address] PCP - General 07/16/14 documented as of this encounter
--- OUTSIDE RECORDS SUMMARY | 2024-05-17 08:44 | XMS_ITS | Encounter Summary ---
[place] [address] Care Team Providers Care Plaster Foreman Name Role Phone Anthony Samaniego MD Primary Care Provider [phone] Encounter Details Date Type Department Care Team (Late st Contact Info) Description 11/18/2020 Telephone [place] [phone] Jerry Betancourt, RN Social History Tobacco Use Types Packs/Day [...] Miscellaneous Notes * Telephone Encounter - Jerry Betancourt, RN - 11/18/2020 4:33 PM EST RTC [...] AM EST Office [place] [address] Benny Solano MD [facility] [place] [place] [address] documented as of this encounter Visit Diagnoses Not on filedocumented in this encounter Care Teams Plaster Foreman Relationship Specialty Start Date End Date Anthony Samaniego MD [address] [place] [address] PCP - General 07/16/14 documented as of this encounter
--- OUTSIDE RECORDS SUMMARY | 2024-05-17 08:44 | XMS_ITS | Encounter Summary ---
[place] [address] Care Team Providers Care Insurance Policy Clerk Name Role Phone Anthony Samaniego MD Primary Care Provider [phone] Encounter Details Date Type Department Care Team (Late st Contact Info) Description 03/11/2020 Telephone [place] [phone] Carla Beltran, [employer] PROJECT ENGINEER Social History Tobacco Use Types Packs/Day Years [...] encounter Miscellaneous Notes * Telephone Encounter - Carla Beltran - 03/11/2020 3:29 PM EDT [employer] Lighting Specialist Pre-Telemedicine Phone Note [] Patient not reached [x] Patient reached and the following information was reviewed/obtained per protocol: [x] Confirmed patient name and date of [x] Confirmed telemedicine shaggy (DotAlignjerichoNine Star Virtual Visit) is downloaded and functioning [x] Confirmed location of patient - TeleVisit is taking place in [x] [place] [] [place] [] If not on myD, working on signing up for [facility] [] Confirmed has completed any pre-visit questionnaires [] If has not received required pre-visit questionnaires, send via [facility] [x] Reviewed patient medications ??? cevimeline (EVOXAC) [...] 10:30 AM EST Office [place] [address] Benny Solano MD [facility] [place] [address] documented as of this encounter Visit Diagnoses Not on filedocumented in this encounter Care Teams Insurance Policy Clerk Relationship Specialty Start Date End Date Anthony Samaniego MD [address] [place] [address] PCP - General 07/16/14 documented as of this encounter
--- OUTSIDE RECORDS SUMMARY | 2024-05-17 08:44 | XMS_ITS | Encounter Summary ---
[place] [address] Care Team Providers Care Network Contractor Name Role Phone Anthony Samaniego MD Primary Care Provider [phone] [phone] Reason for Referral * Consultation (Routine) - Closed Specialty Diagnoses / Procedures Referred By Lindsey varghese Referred To Contact Dermatology Diagnoses Screening for skin cancer Alison Tejeda APRN [facility] [place] [address] [facility] Dermatology [address] [place] [address] Referral ID Status Reason Start Date Expiration Date V isits Requested Visits Authorized [id number] Closed Consult, Test & Treat 12/12/2018 12/12/2019 1 1 Encounter Details Date Type Department Care Team (Late st Contact Info) Description 12/12/2018 10:00 AM EDT Office [place] [address] Alison Tejeda APRN [facility] [place] [address] Screening for skin cancer Social History Tobacco Use Types Packs/Day Years [...] documented in this encounter Progress Notes * Alison Tejeda APRN - 12/12/2018 10:00 AM EDT Images from the original note were not included. HEPATOLOGY NEW PATIENT CONSULTATION Shelton Cates 1960 SIGNALMAN: ALISON TEJEDA APRN PCP: Anthony Samaniego MD [...] upper quadrant, has been present for months, but more evident recently. She has also been vomitting recently, mostly associated with receiving oralcontrast prior to her CT abdomen. She was [...] trying to lose weight, but is having a hard time. She got discouraged when she didn't [...] react to light. Pharynx unremarkable. Neck is supple, no adenopathy, no thyromegaly. Abdomen: Normal bowel sounds; [...] The fact that her Alk Phos has becomemore elevated since 2011, which corresponds with weight gain also helps support a diagnosis of MAURO. Celiac disease can also cause a slight elevation in her liver enzymes, although this is normally in a hepatocellular pattern rather than a cholestatic pattern. Her AMA was negative, thus my suspicion for PBC is very low, and her AME and ASMA are also negative, making my suspicion for autoimmune hepatitis also very low. Reassuringly, her fibroscan does not show any fibrosis. We discussed that her elevated alk phos wasmostly likely due to fatty liver and that weight loss and diet can cause fat to come out of the liver. We set realistic weight loss goals; goal is to focus on loosing 10-15% of total body weight overa year with a target (2-3 lbs/month) by incorporating regular exercise, lifestyle modifications, hea lthy food choices including portion control. In addition I would recommend avoid high fructose cornsyrup and artifical sweeteners. Recommendations: - Discussed dietary recommendations as above - Consider repeat fibroscan in 2-3 years if liver enzymes remain elevated to assess for progressionof fibrosis. Alison Tejeda APRN Section of Gastroenterology [place] [address] Copy: Anthony Samaniego MD [address] / [facility] [address] documented in this encounter Plan of Treatment Upcoming Encounters Date Type Department Care Team (Late st Contact Info) Description 08/02/2024 10:30 AM EST Office [place] [address] Benny Solnao MD [facility] [place] [place] [address] Scheduled Referrals Name Type Priority Associated Diagnoses Order Schedule Referral to Dermatology Outpatient Referral Routine Screening for skin cancer Ordered: 12/12/2018 documented as of this encounter Visit Diagnoses Diagnosis Screening for skin cancer Screening for malignant neoplasm of the skin documented in this encounter Care Teams Network Contractor Relationship Specialty Start Date End Date Anthony Samaniego MD [address] [facility] [address] [place] [address] PCP - General 07/16/14 documented as of this encounter
--- OUTSIDE RECORDS SUMMARY | 2024-05-17 08:44 | XMS_ITS | Encounter Summary ---
Author [place] [address] Care Team Providers Care Tester Sound Name Role Phone Anthony Samaniego MD Primary Care Provider [phone] [phone] Reason for Visit * Reason Onset Date Comments Medication Refill 11/17/2020 Encounter Details Date Type Department Care Team (Late st Contact Info) Description 11/17/2020 [place] [address] Benny Solano MD [facility] [place] [address] Dry eyes; Sjogren's syndrome, with unspecified organ involvement; Sicca syndrome; High risk medication use; Inflammatory arthropathy; Dry mouth Social History Tobacco [...] - 11/17/2020 4:28 PM EST LM for Ai to RTC to nurse as Rx for Gabapentin is confusing due to a 300 mg cap and 600 mg cap being requested. documented in this encounter Plan of Treatment Upcoming Encounters Date Type Department Care Team (Late st Contact Info) Description 08/02/2024 10:30 AM EST [place] [address] Benny Solano MD [facility] [place] [address] documented as of this encounter Visit Diagnoses Diagnosis Dry eyes Tear film insufficiency, unspecified Sjogren's syndrome, with unspecified organ involvement Sicca syndrome High risk medication use Encounter for long-term (current) use of other medications Inflammatory arthropathy Arthropathy, unspecified, site unspecified Dry mouth Disturbance of salivary secretion documented in this encounter Care Teams Tester Sound Relationship Specialty Start Date End Date Anthony Samaniego MD [address] [facility] 1 [place] [address] PCP - General 07/16/14 documented as of this encounter
--- OUTSIDE RECORDS SUMMARY | 2024-05-17 08:44 | XMS_ITS | Encounter Summary ---
[place] [address] Care Team Providers Care Instrument And Electrical Technician Name Role Phone Anthony Samaniego MD Primary Care Provider [phone] Reason for Visit * Diagnostic Test (Routine) - Closed Specialty Diagnoses / Procedures Referred By Lindsey varghese Referred To Contact Radiology Diagnoses Celiac disease/sprue Chronic constipation Sjogren's syndrome, with unspecified organ involvement Procedures NM Gastric Emptying Scan Luca Cain MD [facility] [place] [address] [place] [address] Referral ID Status Reason Start Date Expiration Date V isits Requested Visits Authorized [id number] Closed Specialty Service Requested 08/06/2018 08/06/2019 1 1 Encounter Details Date Type Department Care Team (Late st Contact Info) Description 01/23/2019 8:44 AM EDT Hospital Encounter [place] [address] Luca Cain MD [facility] [place] [address] Discharge Disposition: Home Social History Tobacco Use [...] 10:30 AM EST Office Visit [place] [address] Benny Solano MD [facility] [place] [address] documented as of this encounter Procedures Procedure [...] the number below. ? Electronically signed by: Rcihard Layton [facility] ([phone]), at 01/23/2019 5:05 PM Narrative 01/23/2019 5:05 [...] number below. Electronically signed by: Richard Layton [facility]([phone]), at 01/23/2019 5:05 PM Luca Cain MD IMG NM ORDERABLES documented in this encounter Visit Diagnoses Not on filedocumented in this encounter Care Teams Instrument And Electrical Technician Relationship Specialty Start Date End Date Anthony Samaniego MD [address] [place] [address] PCP - General 07/16/14 documented as of this encounter
--- OUTSIDE RECORDS SUMMARY | 2024-05-17 08:44 | XMS_ITS | Encounter Summary ---
[place] [address] Care Team Providers Care Rotary Lithographic Press Operator Name Role Phone Anthony Samaniego MD Primary Care Provider [phone] [phone] Reason for Visit * Reason Comments Medication Refill Encounter Details Date Type Department Care Team (Late Contact Info) Description 11/16/2020 [place] [address] Benny Solano MD [facility] [address] High risk medication use; Inflammatory arthropathy; Dry [...] 10:30 AM EST [place] [address] Benny Solano MD [facility] [place] [address] documented as of this encounter Visit Diagnoses Diagnosis High risk medication use Encounter for long-term (current) use of other medications Inflammatory arthropathy Arthropathy, unspecified, site unspecified Dry eyes Tear film insufficiency, unspecified Dry mouth Disturbance of salivary secretion documented in this encounter Care Teams Rotary Lithographic Press Operator Relationship Specialty Start Date End Date Anthony Samaniego MD [address] [place] [address] PCP - General 07/16/14 documented as of this encounter
--- OUTSIDE RECORDS SUMMARY | 2024-05-17 08:44 | XMS_ITS | Encounter Summary ---
[place] [address] Care Team Providers Care Tile Edger Name Role Phone Anthony Samaniego MD Primary Care Provider [phone] [phone] Encounter Details Date Type Department Care Team (Late st Contact Info) Description 09/01/2020 Telephone [place] [address] Megan Sheffield Social History Tobacco Use Types [...] * Telephone Encounter - Megan Sheffield - 09/01/2020 12:53 PM EST LM to schedule follow up visit per [facility] request documented in this encounter Plan of Treatment Upcoming Encounters Date Type Department Care Team (Late st Contact Info) Description 08/02/2024 10:30 AM EST Office [place] [address] Benny Solano MD [facility] [place] [address] documented as of this encounter Visit Diagnoses Not on filedocumented in this encounter Care Teams Tile Edger Relationship Specialty Start Date End Date Anthony Samaniego MD [address] [place] [address] PCP - General 07/16/14 documented as of this encounter
--- OUTSIDE RECORDS SUMMARY | 2024-05-17 08:44 | XMS_ITS | Encounter Summary ---
Author Organization [facility] Address [facility] [place] [address] Care Team Providers Care Financial Cost Analyst Name Role Phone Anthony Samaniego MD Primary Care Provider [phone] Encounter Details Date Type Department Care Team (Latest Contact Info) Description 10/09/2019 11:07 AM EST - 10/09/2019 11:59 PM EST Hospital Encounter XRay at [address] [place] [address] Benny Solano MD [facility] [place] [address] Sjogren's syndrome, with unspecified organ involvement; Celiac disease/sprue; Medication monitoring encounter; Pain in peñaloza, unspecified laterality; High risk medication use Discharge Disposition: Home Social History Tobacco Use [...] mouth as needed. hydroxychloroquine (PLAQUENIL) 200 mg TabletIndications:High risk medication use,Inflammatory arthropathy,Vitamin D deficiency,Dry eyes,Dry mouth Take 2 tablets by mouth daily. 180 tablet 3 09/13/2019 09/01/2020 cevimeline (EVOXAC) 30 mg Capsule Take 1 capsule by mouth 3 times daily. 90 capsule 3 08/05/2019 12/06/2019 gabapentin (NEURONTIN) 300 mg CapsuleIndications:Dry eyes,Sjogren's syndrome, with unspecified organ involvement Take 1 capsule by mouth 3 times daily. Start with 1 tab at night every 2 weeks will add a dose to breakfast and lunch until 3x a day 90 capsule 1 07/26/2019 10/14/2019 cholecalciferol, Vitamin D3, 50,000 unit CapsuleIndications:Hig h risk medication use,Inflammatory arthropathy,Dry eyes,Dry mouth Take 1 capsule by mouth once monthly 12 capsule 06/12/2019 12/19/2020 ibuprofen (ADVIL;MOTRIN) 800 mg tablet Take 800 mg by mouth every 6 hours as needed. 11/26/2021 documented as of this encounter Plan of Treatment Upcoming Encounters Date Type Department Care Team (Late st Contact Info) Description 08/02/2024 10:30 AM EST [place] [address] Benny Solano MD [facility] [place] [address] documented as of this encounter Procedures Procedure Name Priority Date/Time Associated Diagnosis Comments XR TIBIA FIBULA BILAT Routine 10/09/2019 11:19 AM EST Sjogren's syndrome, with unspecified organ [...] please contact the number below. ? Narrative 10/09/2019 11:53 AM [...] this report, please contact the number below. Benny Solano MD IMG DX ORDERABLES documented in this encounter Visit Diagnoses Diagnosis Sjogren's syndrome, with unspecified organ involvement Celiac disease/sprue Celiac disease Medication monitoring encounter Encounter for therapeutic drug monitoring Pain in peñaloza, unspecified laterality High risk medication use Encounter for long-term (current) use of other medications documented in this encounter Care Teams Financial Cost Analyst Relationship Specialty Start Date End Date Anthony Samaniego MD [address] [place] [address] PCP - General 07/16/14 documented as of this encounter
--- OUTSIDE RECORDS SUMMARY | 2024-05-17 08:44 | XMS_ITS | Encounter Summary ---
[place] [address] Care Team Providers Care Clay Artisan Name Role Phone Anthony Samaniego MD Primary Care Provider [phone] [phone] Reason for Visit * Reason Comments Medication Refill Encounter Details Date Type Department Care Team (Late Contact Info) Description 09/01/2020 [place] [address] Benny Solano MD [facility] [place] [address] High risk medication use; Inflammatory arthropathy; Vitamin [...] 10:30 AM EST Office [place] [address] Benny Solano MD [facility] [place] [address] documented as of this encounter Visit Diagnoses Diagnosis High risk medication use Encounter for long-term (current) use of other medications Inflammatory arthropathy Arthropathy, unspecified, site unspecified Vitamin D deficiency Unspecified vitamin D deficiency Dry eyes Tear film insufficiency, unspecified Dry mouth Disturbance of salivary secretion documented in this encounter Care Teams Clay Artisan Relationship Specialty Start Date End Date Anthony Samaniego MD [address] [place] [address] PCP - General 07/16/14 documented as of this encounter
--- OUTSIDE RECORDS SUMMARY | 2024-05-17 08:44 | XMS_ITS | Encounter Summary ---
[place] [address] Care Team Providers Care Documentation Liaison Name Role Phone Anthony Samaniego MD Primary Care Provider [phone] Reason for Visit * Reason Comments Medication Refill Encounter Details Date Type Department Care Team (Late Contact Info) Description 08/14/2020 [place] [address] Benny Solano MD [facility] [place] [address] Social History Tobacco Use Types Packs/Day Years [...] 10:30 AM EST Office [place] [address] Benny Solano MD [facility] [place] [address] documented as of this encounter Visit Diagnoses Not on filedocumented in this encounter Care Teams Documentation Liaison Relationship Specialty Start Date End Date Anthony Samaniego MD [address] [place] [address] PCP - General 07/16/14 documented as of this encounter
--- OUTSIDE RECORDS SUMMARY | 2024-05-17 08:44 | XMS_ITS | Encounter Summary ---
[place] [address] Care Team Providers Care Upholstery Cutter Name Role Phone Anthony Samaniego MD Primary Care Provider [phone] -[phone] Reason for Visit * Reason Onset Date Comments Medication Refill 09/01/2020 Encounter Details Date Type Department Care Team (Late st Contact Info) Description 09/01/2020 Ref[place] [address] Benny Solano MD [facility] [place] [address] High risk medication use; Inflammatory arthropathy; Vitamin [...] 10:30 AM EST Office [place] [address] Benny Solano MD [facility] [place] [address] documented as of this encounter Visit Diagnoses Diagnosis High risk medication use Encounter for long-term (current) use of other medications Inflammatory arthropathy Arthropathy, unspecified, site unspecified Vitamin D deficiency Unspecified vitamin D deficiency Dry eyes Tear film insufficiency, unspecified Dry mouth Disturbance of salivary secretion documented in this encounter Care Teams Upholstery Cutter Relationship Specialty Start Date End Date Anthony Samaniego MD [address] [place] [address] [address] [place] [address] PCP - General 07/16/14 documented as of this encounter
--- OUTSIDE RECORDS SUMMARY | 2024-05-17 08:44 | XMS_ITS | Encounter Summary ---
[place] [address] Care Team Providers Care Food Safety Technician Name Role Phone Anthony Samaniego MD Primary Care Provider [phone] [phone] Reason for Visit * Diagnostic Test (Routine) - Closed Specialty Diagnoses / Procedures Referred By Lindsey varghese Referred To Contact Radiology Diagnoses Celiac disease/sprue Chronic constipation Sjogren's syndrome, with unspecified organ involvement Procedures NM Gastric Emptying Scan Luca Cain MD [facility] [place] [address] [place] [address] Referral ID Status Reason Start Date Expiration Date V isits Requested Visits Authorized [id number] Closed Specialty Service Requested 08/06/2018 08/06/2019 1 1 Encounter Details Date Type Department Care Team (Late st Contact Info) Description 01/23/2019 8:44 AM EDT Hospital Encounter [place] [address] Luca Cain MD [facility] [place] [address] Discharge Disposition: Home Social History Tobacco Use [...] 10:30 AM EST Office [place] [address] Benny Solano MD [facility] [place] [address] documented as of this encounter Procedures Procedure [...] on filedocumented in this encounter Care Teams Food Safety Technician Relationship Specialty Start Date End Date Anthony Samaniego MD [address] [place] [address] PCP - General 07/16/14 documented as of this encounter
--- OUTSIDE RECORDS SUMMARY | 2024-05-17 08:44 | XMS_ITS | Encounter Summary ---
[place] [address] Care Team Providers Care Rehabilitation Worker Name Role Phone Anthony Samaniego MD Primary Care Provider [phone] Reason for Visit * Reason Comments Medication Refill Encounter Details Date Type Department Care Team (Late Contact Info) Description 11/17/2020 [place] [address] Benny Solano MD [facility] [place] [address] Dry eyes; Sjogren's syndrome, with unspecified organ [...] 10:30 AM EST [place] [address] Benny Solano MD [facility] [place] [address] documented as of this encounter Visit Diagnoses Diagnosis Dry eyes Tear film insufficiency, unspecified Sjogren's syndrome, with unspecified organ involvement Sicca syndrome documented in this encounter Care Teams Rehabilitation Worker Relationship Specialty Start Date End Date Anthony Samaniego MD [address] [place] [address] PCP - General 07/16/14 documented as of this encounter
--- OUTSIDE RECORDS SUMMARY | 2024-05-17 08:45 | XMS_ITS | Encounter Summary ---
[place] [address] Care Team Providers Care Houseperson Name Role Phone Anthony Samaniego MD Primary Care Provider [phone] [phone] Encounter Details Date Type Department Care Team (Late st Contact Info) Description 08/28/2018 Telephone [place] [address] Roberta Dempsey, RN Social History Tobacco Use [...] Miscellaneous Notes * Telephone Encounter - Roberta Dempsey, RN - 08/29/2018 12:05 PM EST Ai [...] her CT scan. They are scanned in * Telephone Encounter - Roberta Dempsey RN - 08/28/2018 1:35 PM EST Call placed to Ai in response to a voice mail left by her. No answer, message left for return call documented in this encounter Plan of Treatment Upcoming Encounters Date Type Department Care Team (Late st Contact Info) Description 08/02/2024 10:30 AM EST Office [place] [address] Benny Solano MD [facility] [place] [address] documented as of this encounter Visit Diagnoses Not on filedocumented in this encounter Care Teams Houseperson Relationship Specialty Start Date End Date Anthony Samaniego MD [address] [place] [address] PCP - General 07/16/14 documented as of this encounter
--- OUTSIDE RECORDS SUMMARY | 2024-05-17 08:45 | XMS_ITS | Encounter Summary ---
[place] [address] Care Team Providers Care Forest Economist Name Role Phone Anthony Samaniego MD Primary Care Provider [phone] [phone] Encounter Details Date Type Department Care Team (Late st Contact Info) Description 08/24/2016 Telephone [place] [address] Mayito Elizalde Social History Tobacco Use Types Packs/Day Years Used Date Smoking Tobacco: Never Smokeless Tobacco: Never Alcohol Use Standard Drinks/Week Comments Yes 1 (1 standard drink = 0.6 oz pur e alcohol) Sex and Gender Information Value Date Recorded Sex Assigned at Not on file Gender Identity Female 08/06/2018 4:55 AM EST Sexual Orientation Not on file documented as of this encounter Miscellaneous Notes * Telephone Encounter - Mayito Elizalde - 08/24/2016 12:23 PM EST MD Ana Maria Oconnor called in regards to this Pt. Pt has had recent ED visit(s) and provider thinks she needs a GIF here with Dr. Cantu. Lots of GI issues. She is going to get the recent records faxed over to blurb writer. documented in this encounter Plan of Treatment Upcoming Encounters Date Type Department Care Team (Late st Contact Info) Description 08/02/2024 10:30 AM EST Office [place] [address] Benny Solano MD [facility] [place] [address] documented as of this encounter Visit Diagnoses Not on filedocumented in this encounter Care Teams Forest Economist Relationship Specialty Start Date End Date Anthony Samaniego MD [address] [place] [address] PCP - General 07/16/14 documented as of this encounter
--- OUTSIDE RECORDS SUMMARY | 2024-05-17 08:45 | XMS_ITS | Encounter Summary ---
[place] [address] Care Team Providers Care Loan Administrator Name Role Phone PanfiloVasyl roe Primary Care Provider Encounter Details Date Type Department Care Team (Late st Contact Info) Description 06/29/2010 [place] [phone] Bay Rodriguez MD [facility] [address] Social History Tobacco Use Types Packs/Day Years Used Date Smoking Tobacco: Never Assessed Sex and Gender Information Value Date Recorded Sex Assigned at Not on file Gender Identity Female 08/06/2018 4:55 AM EST Sexual Orientation Not on file documented as of this encounter Plan of Treatment Upcoming Encounters Date Type Department Care Team (Late st Contact Info) Description 08/02/2024 10:30 AM EST [place] [phone] Benny Solano MD [facility] [address] documented as of this encounter Procedures Procedure Name Priority Date/Time Associated Diagnosis Comments CORTISOL, SALIVA Routine 06/29/2010 12:0 2 AM EDT documented in this encounter Results * CORTISOL, SALIVA (06/29/2010 12:02 AM EDT) [place] Saliva (JANUARY) <50 ng/dL CERNER MILLENNIUM Comment: -- REFERENCE VALUE -- 7:00-9:00 am: 100-750 3:00-5:00 pm: <401 11:00 pm-Midnight: <100 Test Performed by: [facility] [place] [address] Jewel Waxer: Natalia Berrios, Ph.D. [place] Saliva Am (JANUARY) NOT APPLICABLE CERNER MILLENNIUM [place] Saliva Pm (JANUARY) NOT APPLICABLE CERNER MILLENNIUM [place] Saliva Midnight (JANUARY) NOT APPLICABLE CERNER MILLENNIUM Specimen of unknown material (specimen) 06/29/2010 12:02 AM EDT 07/01/2010 12:22 PM EDT Bay Rodriguez MD LAB SEND OUT ORDERAB LES GERARDO MORILLO documented in this encounter Visit Diagnoses Not on filedocumented in this encounter Care Teams Loan Administrator Relationship Specialty Start Date End Date Vasyl Whittaker DO [address] [place] [address] PCP - General 08/17/10 07/15/14 documented as of this encounter
--- OUTSIDE RECORDS SUMMARY | 2024-05-17 08:45 | XMS_ITS | Encounter Summary ---
[place] [address] Care Team Providers Care Restaurant Area Manager Name Role Phone Panfilo, Vasyl DAVIES Primary Care Provider Encounter Details Date Type Department Care Team (Late st Contact Info) Description 02/06/2013 11:00 AM EDT - 02/06/2013 12:00 PM EDT Surgery [place] [address] Keyon Tellez MD [facility] [place] [address] COLONOSCOPY, DIAGNOSTIC (WRVU 3.26) Social History Tobacco Use Types Packs/Day Years [...] 36.6 ??C (97.9 ??F) 02/06/2013 9:55 AM ED T Respiratory Rate 12 02/06/2013 11:56 AM EDT Oxygen Saturation 100% 02/06/2013 11:56 AM EDT Inhaled Oxygen Concentration - - Weight 86.2 kg (190 lb) 02/06/2013 9:55 AM EDT Height - - Body Mass Index 34.2 12/31/2012 9:35 AM EDT documented in this encounter Discharge Instructions * Discharge Instructions* Uriel Servin RN - 02/06/2013 12:01 PM EDT Upper [...] as directed. Your Doctor will tell you when to restart your prescribed blood thinners You may [...] next colonoscopy. The results of your test and your risk for colorectal cancer will help your doctor decide how often you need to be checked. Monday-Monday Clinic [phone] 8a-5p Same Day Endo [phone] 7a-8p Otherwise contact [phone] and ask to speak to the kitchen work supervisor securities consultant Follow up care is a castellano part of your treatment and safety. Be sure to make and go to all appointments, and call your doctor if you are having problems. Discharge instructions reviewed with patient who expresses understanding documented in this encounter Medications at Time of Discharge Medication Sig Dispensed Refills Start Date End Date DOCUSATE CALCIUM (STOOL SOFTENER ORAL) Take by mouth as needed. citalopram (CELEXA) 40 mg tablet Take 40 mg by mouth daily. 10/24/2018 ibuprofen (ADVIL;MOTRIN) 800 mg tablet Take 800 mg by mouth every 6 hours as needed. 11/26/2021 documented as of this encounter H&P Notes * Keyon Tellez MD - 02/06/2013 11:04 AM [...] signed. documented in this encounter Miscellaneous Notes * Miscellaneous - Provider, Scanning - 02/06/2013 9:26 PM EDT * Miscellaneous - Provider, Scanning - 02/06/2013 1:33 PM EDT documented in this encounter Plan of Treatment Upcoming Encounters Date Type Department Care Team (Late st Contact Info) Description 08/02/2024 10:30 AM EST Office Visit [place] [address] Benny Solano MD [facility] [place] [address] documented as of this encounter Procedures Procedure Name Priority Date/Time Associated Diagnosis Comments SURGICAL PATHOLOGY REPORT Routine 02/06/2013 1:44 PM EDT SPECIMEN TO PATHOLOGY Routine 02/06/2013 11:52 AM EDT EGD, UPPER GI ENDOSCOPY (WRVU 2.09) 02/06/2013 11:12 AM EDT FHX CRC,F/U CELIAC SPRUE (LOCAL) COLONOSCOPY, DIAGNOSTIC (WRVU 3.26) 02/06/2013 11:12 AM EDT FHX CRC,F/U CELIAC SPRUE (LOCAL) COLONOSCOPY Routine 02/06/2013 7:50 AM EDT UPPER GI ENDOSCOPY Routine 02/06/2013 7: 48 AM EDT documented in this encounter Results * Surgical Pathology Report (02/06/2013 1:44 PM EDT) Surgical Pathology Report ? [facility] ? Provider: ?? KEYON TELLEZ ?Pt. Name: ?? AI MORRISON ? Acc #: ?[id number] ?Pt. ? Col Date: ?? 02/06/2013 ? /Sex: ?1960,(53 years),Female ? Rec Date: ?? 02/06/2013 ? LOC: ?4T ? SURGICAL PATHOLOGY ? ---Pathologic Diagnosis--- ? Duodenum, biopsy: ?Duodenal mucosa, negative for diagnostic abnormality. ? CR-0 ? 02/07/13 ? AJE ? 02/07/13 Verified by: ? Nigel Cueto MD ? Pathologist ? (Electronic Signature) ? The attending pathologist whose signature appears on this report has ? reviewed all diagnostic slides and has edited the gross and/or ? microscopic portion of the report in rendering the final pathologic ? diagnosis. ? ---Microscopic Description--- ? Slides reviewed, microscopic description not recorded. ? ---Gross Description--- ? A - Labeled/Fixativ e: Biopsy of duodenum, formalin. ? Quantity/Size: Five, averaging 0.3 cm. ? Tissue Description: Soft, pink-márquez tissues. ? Sections/Proces sing: (T1) ??ejr ? ---Clinical Information--- ? Specimen Submitted: ? A - Bx of duodenum ? Clinical History: ? Patient with sprue, assess for response to therapy ? Clinical Diagnosis: ? Same GERARDO MORILLO 02/06/2013 1:44 PM EDT Keyon Tellez MD PATHOLOGY/CYTOLOGY O [place] Performing Organization Address [facility]/ZIP Co de Phone Number [facility] * Specimen to Pathology (surgical or derm) (02/06/2013 11:52 AM EDT) AP Specimen 02/06/2013 11:5 2 AM EDT 02/06/2013 11:52 AM EDT Narrative [facility] - 02/06/2013 11:52 AM EDT Specimen requisition ordered. ??Separate Pathology report to follow Keyon Tellez MD PATHOLOGY/CYTOLOGY O [place] Performing Organization Address [facility]/State/ZIP Co de Phone Number [facility] * COLONOSCOPY (02/06/2013 7:50 AM EDT) COLONOSCOPY [facility] Endoscopy Patient Name: Ai Morrison ? Procedure Date: 02/06/2013 7:50 AM ? Date of : 1960 ? Age: 53 ? Order #: [id number] ? Procedure: ? Colonoscopy Indications: ? FH of Colon Cancer - 1st degree ? relative, constipation Providers: ? Keyon Tellez MD, Soraya Richards ? Ashlee, DANIEL, Yesi Regan, Executive Staff Assistant Referring : ?Vasyl Whittaker, DO Medicines: ? Midazolam 4 mg IV, Fentanyl 200 ? micrograms IV Complications: ? No immediate complications. Procedure: ? Pre-Anesthesia Assessment: ? - ASA Grade Assessment: I - A normal, ? healthy patient. ? The procedure, indications, benefits, ? risks [...] quality of the ? bowel preparation was excellent. ? Scope withdrawal time was 24 minutes. [...] in 5 years for ? surveillance. ? _ Keyon Tellez MD 02/06/2013 11:41 AM This report has been signed electronically. Number of Addenda: 0 Note Initiated On: 02/06/2013 7:50 AM PROVATION 02/06/2013 7:50 AM EDT Vasyl Whittaker DO GENERAL SURGICAL ORD ERABLES PROVATION * UPPER GI ENDOSCOPY (02/06/2013 7:48 AM EDT) UPPER GI ENDOSCOPY [facility] Endoscopy Patient Name: Ai Morrison ? Procedure Date: 02/06/2013 7:48 AM ? N: [id number] ? Date of : 1960 ? Age: 53 ? Order #: [id number] ? Procedure: ? Upper GI endoscopy Indications: ? h/o sprue assess for response to diet Providers: ? Keyon Tellez MD, Soraya Meza. ? DANIEL Rosado, Yesi Rgean, Executive Staff Assistant Referring MD: ?Vasyl Whittaker, DO Medicines: ? Midazolam 1 mg IV, Fentanyl 25 ? micrograms IV Complications: ? No immediate complications. Procedure: ? Pre-Anesthesia Assessment: ? - After reviewing the risks and ? benefits, the patient was deemed in ? satisfactory condition to undergo the ? procedure. ? - ASA Grade Assessment: I - A normal, ? healthy patient. ? The procedure, indications, benefits, ? risks and alternatives were explained ? to the patient. Specifically ? discussed were potential ? complications including, but not ? limited to, bleeding, perforation, ? infection, missing a cancer, and ? adverse medication reactions. The ? Endoscope was introduced through the ? mouth, and advanced to the third part ? of duodenum. The patient tolerated ? the procedure well. The upper GI ? endoscopy was accomplished without ? difficulty. The patient tolerated the ? procedure well. ? Findings: ? A small hiatus hernia was present from 38-35 cm. The ? Zline was normalThe entire examined stomach was ? normal. The examined duodenum was normal. Biopsies ? were taken with a cold forceps for evaluation of ? celiac disease. ? Impression: ?- Hiatus hernia. ? - Normal stomach. ? - Normal examined duodenum. Biopsy ? was performed. Recommendation: ?- Await pathology results. ? Continue with Gluten free diet ? __ Keyon Tellez MD 02/06/2013 11:59 AM This report has been signed electronically. Number of Addenda: 0 Note Initiated On: 02/06/2013 7:48 AM PROVATION 02/06/2013 7:48 AM EDT Vasyl Whittaker DO GENERAL SURGICAL ORD ERABLES PROVATION documented in this encounter Visit Diagnoses Not on filedocumented in this encounter Administered Medications Inactive Administered Medications - up to 3 most recent administrations Medication Order MAR Action Action Date Dose Rate Site diphenhydrAMINE (BENADRYL) injection ONCE PRN, Starting on Mon02/06/13 at 1115, Until Mon02/06/13 at 1857, Itching, Intra-Operative (Intra-Procedure), Routine Given 02/06/2013 11:15 AM EDT 25 mg fentaNYL 50mcg/mL injection ONCE PRN, Starting on Mon02/06/13 at 1115, Until Mon02/06/13 at 1857, Pain, Intra-Operative (Intra-Procedure), Routine Given 02/06/2013 11:43 AM EDT 50 mcg Given 02/06/2013 11:40 AM EDT 50 mcg Given 02/06/2013 11:19 AM EDT 50 mcg midazolam (VERSED) injection ONCE PRN, Starting on Mon02/06/13 at 1115, Until Mon02/06/13 at 1857, Sleep, Intra-Operative (Intra-Procedure), Routine Given 02/06/2013 11:44 AM EDT 1 mg Given 02/06/2013 11:40 AM EDT 1 mg Given 02/06/2013 11:19 AM EDT 1 mg documented in this encounter Active and Recently Administered Medications Times are shown in EDT. PRN Medication Order 02/04/2013 02/05/2013 02/06/2013 diphenhydrAMINE (BENADRYL) injection (CANCELED) ONCE PRN, Starting on Mon02/06/13 at 1115, Until Mon02/06/13 at 1857, Itching, Intra-Operative (Intra-Procedure), Routine 111 (Given - Provid er: Soraya Rosado RN) fentaNYL 50mcg/mL injection (CANCELED) ONCE PRN, Starting on Mon02/06/13 at 1115, Until Mon02/06/13 at 1857, Pain, Intra-Operative (Intra-Procedure), Routine 1115 (Given - Provid er: Soraya Rosado RN)1117 (Given - Provider: Soraya Rosado RN)1119 (Given - Provider: Soraya Rosado RN)1140 (Given - Provider: Soraya Rosado RN)1143 (Given - Provider: Soraya Rosado RN) midazolam (VERSED) injection (CANCELED) ONCE PRN, Starting on Mon02/06/13 at 1115, Until Mon02/06/13 at 1857, Sleep, Intra-Operative (Intra-Procedure), Routine 1115 (Given - Provid er: Soraya E Ashlee, RN)1117 (Given - Provider: Soraya Rosado RN)1119 (Given - Provider: Soraya Rosado, RN)1140 (Given - Provider: Soraya Rosado, RN)1144 (Given - Provider: Soraya Rosado, RN) documented in this encounter Care Teams Restaurant Area Manager Relationship Specialty Start Date End Date Vasyl Whittaker DO [address] [place] [address] PCP - General 08/17/10 07/15/14 documented as of this encounter
--- OUTSIDE RECORDS SUMMARY | 2024-05-17 08:45 | XMS_ITS | Encounter Summary ---
[place] [address] Care Team Providers Care Dynamometer Tester Engine Name Role Phone Anthony Samaniego MD Primary Care Provider [phone] Reason for Visit * Reason Comments Bloated Constipation Encounter Details Date Type Department Care Team (Late st Contact Info) Description 09/02/2015 1:00 PM EST Tech [place] [address] Luca Cain MD [facility] [place] [address] Chronic constipation; Small intestinal bacterial overgrowth Social History Tobacco Use Types Packs/Day Years Used Date Smoking Tobacco: Never Smokeless Tobacco: Never Alcohol Use Standard Drinks/Week Comments Yes 1 (1 standard drink = 0.6 oz pur e alcohol) Sex and Gender Information Value Date Recorded Sex Assigned at Not on file Gender Identity Female 08/06/2018 4:55 AM EST Sexual Orientation Not on file documented as of this encounter Patient Instructions * Patient Instructions* Luca Cain MD - 09/07/2015 6:06 PM EST Increase fiber in diet, goal 20- 30 grams daily Increase hydration, goal 2-3 liters daily Increase exercise and work on weight loss. Miralax 1-2 capfuls daily to prevent constipation. documented in this encounter Progress Notes * Luca Cain MD - 09/02/2015 1:32 PM [...] consistent with small intestinal bacterial overgrowth. There is a significantly elevated methane level at baseline with [...] constipation Luca Cain MD Gastroenterology [place] [address] P: [phone] F: [phone] Copy: ANTHONY SAMANIEGO MD documented in this encounter Plan of Treatment Upcoming Encounters Date Type Department Care Team (Late st Contact Info) Description 08/02/2024 10:30 AM EST [place] [address] Benny Solano MD [facility] [place] [address] documented as of this encounter Visit Diagnoses Diagnosis Chronic constipation Unspecified constipation Small intestinal bacterial overgrowth documented in this encounter Care Teams Dynamometer Tester Engine Relationship Specialty Start Date End Date Anthony Samaniego MD [address] [place] [address] PCP - General 07/16/14 documented as of this encounter
--- OUTSIDE RECORDS SUMMARY | 2024-05-17 08:45 | XMS_ITS | Encounter Summary ---
Author Organization Formerly [facility] [place] [address] Care Team Providers Care Patent Examiner Name Role Phone Anthony Samaniego MD Primary Care Provider [phone] Encounter Details Date Type Department Care Team (Late st Contact Info) Description 10/24/2018 9:00 AM EST [place] [address] Patty Hebert MD [facility] [place] [address] Abnormal blood chemistry; Sjogren's syndrome, with unspecified organ involvement; Arthralgia, unspecified joint; Sicca syndrome; Vitamin D deficiency; Fatigue, unspecified type; Delayed gastric emptying Social History Tobacco Use Types Packs/Day Years [...] 36.5 ??C (97.7 ??F) 10/24/2018 8:40 AM ES T Respiratory Rate - - Oxygen Saturation 100% 10/24/2018 8:40 AM EST Inhaled Oxygen Concentration - - Weight 108.1 kg (238 lb 6.4 oz) 10/24/2018 8:40 AM EST Height 157.5 cm (5' 2) 10/24/2018 8:40 AM EST Body Mass Index 43.6 10/24/2018 8:40 AM EST documented in this encounter Progress Notes * Patty Hebert MD - 10/24/2018 9:00 AM EST Outpatient Rheumatology Follow-up Note HPI: Ms. 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 Reportedly, here for evaluation of fatigue, arthralgias. Endorses reading about Sjogren's disease. Dry eyes and dry mouth and wonders if she has Sjogren's disease, onset of symptoms years ago ([id number]) gradually worsening since July 2018. Started prescription [...] 1 drink per week. Works as chair pad maker for about 40 years. Family Hx: PGM [...] No active synovitis. 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 Gastric emptying scan not yet done. RTC in 2 months. Planning vacation in December to [facility] 10/24/18 ESR 26, CRP 2.1 Normal bicarbonate, creatinine(no evidence of RTA) Urine analysis negative for protein, blood, trace leukocytes Antimitochondrial antibody, anti-smooth muscle antibody pending Alkaline phosphatase 120, normal LFTs otherwise Add vitamin D level documented in this encounter Plan of Treatment Upcoming Encounters Date Type Department Care Team (Late st Contact Info) Description 08/02/2024 10:30 AM EST [place] [address] Benny Solano MD [facility] [place] [address] documented as of this encounter Procedures Procedure Name Priority Date/Time Associated Diagnosis Comments URINALYSIS MICROSCOPIC EXAM Routine 10/24/2018 10:10 AM EST URINALYSIS WITH REFLEX CULTURE Routine 10/24/2018 10:10 AM EST Sjogren's syndrome, with unspecified organ involvement CRP, ACUTE INFLAMMATION Routine 10/24/2018 10:01 AM EST Abnormal blood chemistry Sjogren's syndrome, with unspecified organ involvement Arthralgia, unspecified joint Sicca syndrome HEMOGRAM Routine 10/24/2018 10:01 AM EST Abnormal blood chemistry Sjogren's syndrome, with unspecified organ involvement Arthralgia, unspecified joint Sicca syndrome DIFFERENTIAL, AUTOMATED Routine 10/24/2018 10:01 AM EST Abnormal blood chemistry Sjogren's syndrome, with unspecified organ involvement Arthralgia, unspecified joint Sicca syndrome MITOCHONDRIAL ANTIBODY, M2 Routine 10/24/2018 10:01 AM EST VITAMIN D, 25-HYDROXY Routine 10/24/2018 10:01 AM EST SMOOTH MUSCLE ANTIBODY Routine 9 10:01 AM EST SEDIMENTATION RATE Routine 10/24/2018 10 :01 AM EST Abnormal blood chemistry Sjogren's syndrome, with unspecified organ involvement Arthralgia, unspecified joint Sicca syndrome CBC (WITH DIFF) Routine 10/24/2018 10:01 AM EST Abnormal blood chemistry Sjogren's syndrome, with unspecified organ involvement Arthralgia, unspecified joint Sicca syndrome COMPREHENSIVE METABOLIC PANEL Routine 10/24/2018 10:01 AM EST Abnormal blood chemistry Sjogren's syndrome, with unspecified organ involvement Arthralgia, unspecified joint Sicca syndrome documented in this encounter Results * Urinalysis Microscopic Exam (10/24/2018 10:10 AM EST) RBC, Urine <1 0 - 4 /HPF [facility] WBC, Urine 1 0 - 5 /HPF [facility] Squamous Epithelial Cells Raw Data, Urine <1 <=4 /HPF [facility] Urine specimen (specimen) 10/24/2018 10:10 AM EST 10/24/2018 10:19 AM EST Narrative Resulting Agency Comment Spec In Lab Patty Hebert MD URINE ORDERABLES [facility] [place] [address] * (ABNORMAL) Urinalysis with reflex Culture (10/24/2018 10:10 AM EST) Glucose, Urine Dipstick Negative Negative mg/dL [facility] Protein, Urine Dipstick Negative Negative mg/dL [facility] Bilirubin, Urine Dipstick Negative Negative mg/dL [facility] Comment: Clinical correlation required for positive Urine Bilirubin results as false positive may occur with some drugs and drug related products. If a false positive is suspected a serum total bilirubin should be considered if clinically indicated. Urobilinogen, Urine Dipstick Normal Normal mg/dL [facility] pH, Urn (dipstick) 7.0 5.0 - 8.0 [facility] Blood, Urine Dipstick Negative Negative mg/dL [facility] Ketone, Urine Dipstick Negative Negative mg/dL [facility] Nitrite, Urine Dipstick Negative Negative [facility] Leukocytes, Urine Dipstick Trace(A) Negative [facility] Appearance, Urine Dipstick Clear Clear [facility] Specific [place] Urine Automated 1.015 1.002 - 1.030 [facility] Color, Urine Dipstick Yellow Yellow [facility] Reflex to Culture No [facility] Urine specimen (specimen) 10/24/2018 10:10 AM EST 10/24/2018 10:19 AM EST Narrative Resulting Agency Comment Spec In Lab Patty Hebert MD URINE ORDERABLES [facility] [place] [address] * Vitamin D, 25-Hydroxy (10/24/2018 10:01 AM EST) Vitamin D Total 25 OH 30 30 - 100 ng/mL [facility] Comment: Deficient <10 ng/mL Insufficient 10 to 29 ng/mL Sufficient 30 to 100 ng/mL Potential Intoxication >100 ng/mL According to the [place] National Osteoporosis Foundation, Vitamin D concentrations >30 ng/mL are sufficient to protect bone health. ??The National Kidney Foundation has similarly stated that patients with Vitamin D concentrations <30ng/mL should be considered to be insufficient or deficient. http://Zmanda.com/nkf-guidelines http://[employer]/nejm-VitD The [employer] i[employer] Vitamin D Immunoassay detects both 25-OH Vitamin D2 and 25-OH Vitamin D3, but only a total Vitamin D concentration is reported. Blood specimen (specimen) Venous Draw / Unknown 10/24/2018 10:01 AM EST 10/25/2018 7:18 AM EST Narrative Resulting Agency Comment Spec In Lab Patty Hebert MD CHEMISTRY ORDERABLES Performing Organization Address [facility] Co de Phone Number [facility] [place] [address] * Mitochondrial Antibody, M2 (10/24/2018 10:01 AM EST) Mitochon Ab (JANUARY) <0.1 <0.1 (Negative) U [facility] Comment: Test Performed by: [facility] - [address] [address] Blood specimen (specimen) Venous Draw / Unknown 10/24/2018 10:01 AM EST 10/24/2018 2:25 PM EST Narrative Resulting Agency Comment Spec In Lab Patty Hebert MD LAB SEND OUT ORDERAB LES Performing Organization Address [facility] Co de Phone Number [facility] [place] [address] * Smooth Muscle Antibody (10/24/2018 10:01 AM EST) Sm Muscle Ab (JANUARY) Negative Negative [facility] Comment: ADDITIONAL INFORMATION This test was developed and its performance characteristics determined by [facility] in a manner consistent with CLIA requirements. This test has not been cleared or approved by the U.S. Food and Drug Administration. Test Performed by: [facility] [employer] - [address] [address] Blood specimen (specimen) Venous Draw / Unknown 10/24/2018 10:01 AM EST 10/24/2018 2:25 PM EST Narrative Resulting Agency Comment Spec In Lab Patty Hebert MD LAB SEND OUT ORDERAB LES Performing Organization Address City/[facility]/ZIP Co de Phone Number [facility] [place] [address] * Differential, Automated (10/24/2018 10:01 AM EST) Neutrophil % 56.4 % [facility] Neutrophil Absolute 2.96 1.70 - 6.10 x10(3)/[facility] Lymph % 33.3 % [facility] Lymphocytes Abs 1.8 0.9 - 3.2 x10(3)/[facility] Monocyte % 7.8 % [facility] Monocyte Abs 0.4 0.3 - 0.9 x10(3)/[facility] Eos % 1.7 % [facility] Eosinophils Abs 0.1 0.0 - 0.4 x10(3)/[facility] Basophil % 0.6 % [facility] Baso Absolute 0.0 0.0 - 0.1 x10(3)/[facility] Immature Gran % 0.20 % [facility] Comment: Immature granulocytes(IG's)percentage and absolute count will include metamyelocytes, myelocytes, and promyelocytes. Blood smears from CBCs yielding IG's will be scanned manually for concordance. If this scan disagrees with the automated IG or if promyelocytes are noted, a manual differential will be performed. Immature Gran Absolute 0.01 0.00 - 0.04 x10(3)/[facility] Blood specimen (specimen) 10/24/2018 10:01 AM EST 10/24/2018 10:24 AM EST Narrative Resulting Agency Comment Spec In Lab Patty Hebert MD HEMATOLOGY ORDERABLE S Performing Organization Address City/[facility]/ZIP Co de Phone Number [facility] [place] [address] * (ABNORMAL) Hemogram (10/24/2018 10:01 AM EST) White Blood Cell 5.2 4.0 - 9.5 x10(3)/mc L [facility] Red Blood Cell 3.92(L) 4.00 - 5.21 x10(6)/mc L [facility] Hemoglobin 12.8 11.7 - 15.5 gm/dL [facility] Hematocrit 37.8 35.7 - 45.8 % [facility] Mean Cell Volume 96.4(H) 82.6 - 94.4 fL [facility] Mean Cell Hemoglobin 32.7(H) 27.1 - 32.0 pg [facility] Mean Cell Hemoglobin Concentration 33.9 31.7 - 35.0 gm/dL [facility] Platelet 265 145 - 357 x10(3)/ L [facility] RDW Standard Deviation 48.9(H) 37.0 - 46.0 [facility] RDW coefficient of variation 13.6 11.5 - 14.1 % [facility] Mean Platelet Volume 10.7 7.6 - 12.9 fL [facility] NRBC% auto 0.0 % [facility] NRBC Absolute 0.000 0.000 - 0.000 x10(3)/ L [facility] Blood specimen (specimen) 10/24/2018 10:01 AM EST 10/24/2018 10:24 AM EST Narrative Resulting Agency Comment Spec In Lab Patty Hebert MD HEMATOLOGY ORDERABLE S [facility] [place] [address] * CRP, acute inflammation (10/24/2018 10:01 AM EST) C-Reactive Protein 2.1 <=4.9 mg/L [facility] Blood specimen (specimen) 10/24/2018 10:01 AM EST 10/24/2018 10:24 AM EST Narrative Resulting Agency Comment Spec In Lab Patty Hebert MD CHEMISTRY ORDERABLES Performing Organization Address City/[facility]/ZIP Co de Phone Number [facility] [place] [address] * (ABNORMAL) Sedimentation rate (10/24/2018 10:01 AM EST) Sedimentation Rate Automated 26(H) 0 - 20 mm/hr [facility] Blood specimen (specimen) 10/24/2018 10:01 AM EST 10/24/2018 10:24 AM EST Narrative Resulting Agency Comment Spec In Lab Patty Hebert MD HEMATOLOGY ORDERABLE S Performing Organization Address City/[facility] Co de Phone Number [facility] [place] [address] * (ABNORMAL) Comprehensive metabolic panel (non-fasting) (10/24/2018 10:01 AM EST) Glucose 93 65 - 199 mg/dL [facility] Comment:Diabetes: >=200 mg/d L plus symptoms Blood Urea Nitrogen 17 8 - 18 mg/dL [facility] Creatinine 0.88 0.70 - 1.20 mg/dL [facility] Sodium 141 135 - 145 mmol/L [facility] Potassium 4.4 3.5 - 5.0 mmol/L [facility] Comment: Please note: ??Patients with WBC >100,000 may have falsely elevated Potassium levels. ??For accurate Potassium quantification in these patients send serum separator tube (gold top) for subsequent determinations. ??Contact the Clinical Chemistry Laboratory if there are any questions. Chloride 104 98 - 107 mmol/L [facility] Carbon Dioxide 26 22 - 31 mmol/L [facility] Anion Gap 11 5 - 15 mmol/L [facility] Calcium 9.1 8.5 - 10.5 mg/dL [facility] Protein, Total 7.3 6.1 - 8.0 gm/dL [facility] Albumin 4.0 3.2 - 5.2 gm/dL [facility] Aspartate Aminotransferase 18 0 - 30 unit/L [facility] Alanine Aminotransferase 15 0 - 30 unit/L [facility] Alkaline Phosphatase 120(H) 40 - 104 unit/L [facility] Bilirubin, Total 0.3 0.2 - 1.3 mg/dL [facility] Est Glomerular Filtration Rate 72 >=60 mL/min/1. 73 m?? [facility] Comment: The eGFR was calculated using the CKD-EPI equation. As with all creatinine based estimates of kidney function, eGFR values calculated with the CKD-EPI equation are not accurate in patients with acute kidney failure, extremes of body mass or the acutely ill. http://[employer]/[facility] – MIAMInkf eGFR 84 >=60 mL/min/1. 73 m?? [facility] Comment: The eGFR was calculated using the CKD-EPI equation. As with all creatinine based estimates of kidney function, eGFR values calculated with the CKD-EPI equation are not accurate in patients with acute kidney failure, extremes of body mass or the acutely ill. http://[employer]/DHnkf Blood specimen (specimen) 10/24/2018 10:01 AM EST 10/24/2018 10:24 AM EST Narrative Resulting Agency Comment Spec In Lab Patty Hebert MD CHEMISTRY ORDERABLES [facility] [place] [address] documented in this encounter Visit Diagnoses Diagnosis Abnormal blood chemistry Other abnormal blood chemistry Sjogren's syndrome, with unspecified organ involvement Arthralgia, unspecified joint Sicca syndrome Vitamin D deficiency Unspecified vitamin D deficiency Fatigue, unspecified type Delayed gastric emptying Dyspepsia and other specified disorders of function of stomach documented in this encounter Care Teams Patent Examiner Relationship Specialty Start Date End Date Anthony Samaniego MD [address] [place] [address] [address] [place] [address] PCP - General 07/16/14 documented as of this encounter
--- OUTSIDE RECORDS SUMMARY | 2024-05-17 08:45 | XMS_ITS | Encounter Summary ---
Author Organization [facility] [place] [address] Care Team Providers Care Ux Design Manager Name Role Phone Anthony Samaniego MD Primary Care Provider [phone] Reason for Referral * Diagnostic Test (Routine) - Closed Specialty Diagnoses / Procedures Referred By Lindsey varghese Referred To Contact Radiology Diagnoses Celiac disease/sprue Chronic constipation Sjogren's syndrome, with unspecified organ involvement Procedures NM Gastric Emptying Scan Luca Cain MD [facility] [place] [address] [place] [address] Referral ID Status Reason Start Date Expiration Date V isits Requested Visits Authorized [id number] Closed Specialty Service Requested 08/06/2018 08/06/2019 1 1 Encounter Details Date Type Department Care Team (Late st Contact Info) Description 08/06/2018 3:00 PM EST Office Visit [place] [address] Luca Cain MD [facility] [place] [address] Celiac disease/sprue; Chronic constipation; Sjogren's syndrome, with unspecified organ involvement Social [...] EST documented in this encounter Patient Instructions * Patient Instructions* Luca Cain MD - 08/06/2018 3:00 PM EST Labs today. CT Scan to assess lymph nodes Gastric emptying study, if positive see Motility team. If negative the treatment for small intestinal bacterial overgrowth (SIBO) and EGD. documented in this encounter Progress Notes * Luca Cain MD - 08/06/2018 3:00 PM EST Gastroenterology Outpatient Progress Note Patient ID: Ai Morrison is a 58 y.o. female with history of celiac disease and chronic constipation who returns to clinic for ongoing symptoms, she has not been seen since August 2015.Treated for small intestinal bacterial overgrowth (SIBO). Patient Active Problem List Diagnosis ??? Sjogren's syndrome ??? Celiac disease/sprue ??? Chronic constipation Interim History: She continues to follow a strict gluten-free diet, continues to have significant constipation. She feels as if food does not move through her as she would expect and feels distended and bloated aftereating. She continues to have abdominal oa She has been working with Rheumatology. She has recently been diagnosed with Sjogren's syndrome andis worried about ongoing fatigue and joint pain. [...] EDH. Last TTG 0.7 (2014) Last EGD: 2012, normal duodenal biopsies MRE 2013: No evidence [...] the fact that Sjogren's syndrome may overlap withconnective tissue disorder and have some associated gastrointestinal motility dysmotility. There iscertainly an overlap of Sjogren's syndrome with celiac disease as well. We discussed the fact that the diagnosis of celiac disease also does put her at risk of small bowellymphoma. In the past there was some concern of small bowel thickening the time of laparoscopy however subsequent imaging has not shown any enlarged lymph nodes. She does not have any other alarm symptoms of significant weight loss night sweats or fevers. We discussed re-evaluation with imaging to ensure that she has not developed any bowel process. This will include evaluating for evidence of lymphoma. We [...] the issues outlined above. Luca Cain MD [facility] [place] documented in this encounter Plan of Treatment Upcoming Encounters Date Type Department Care Team (Late st Contact Info) Description 08/02/2024 10:30 AM EST Office Visit Rheumatology [place] [address] Benny Solano MD [facility] [address] documented as of this encounter Procedures Procedure Name Priority Date/Time Associated Diagnosis Comments CRP, ACUTE INFLAMMATION Routine 08/06/2018 5:23 PM EST Celiac disease/sprue Chronic constipation Sjogren's syndrome, with unspecified organ involvement HEMOGRAM Routine 08/06/2018 5:23 PM EST Celiac disease/sprue Chronic constipation Sjogren's syndrome, with unspecified organ involvement DIFFERENTIAL, AUTOMATED Routine 08/06/2018 5:23 PM EST Celiac disease/sprue Chronic constipation Sjogren's syndrome, with unspecified organ involvement TISSUE TRANSGLUTAMINASE, IGA Routine 08/06/2018 5:23 PM EST Celiac disease/sprue Chronic constipation Sjogren's syndrome, with unspecified organ involvement CBC (WITH DIFF) Routine 08/06/2018 5:23 PM EST Celiac disease/sprue Chronic constipation Sjogren's syndrome, with unspecified organ involvement COMPREHENSIVE METABOLIC PANEL Routine 08/06/2018 5:23 PM EST Celiac disease/sprue Chronic constipation Sjogren's syndrome, with [...] contact the number below. Luca Cain MD [facility] [place] * Differential, Automated (08/06/2018 5:23 PM EST) Neutrophil % 49.0 % [facility] Neutrophil Absolute 3.37 1.70 - 6.10 x10(3)/[facility] Lymph % 40.9 % [facility] Lymphocytes Abs 2.8 0.9 - 3.2 x10(3)/[facility] Monocyte % 7.1 % [facility] Monocyte Abs 0.5 0.3 - 0.9 x10(3)/[facility] Eos % 2.2 % [facility] Eosinophils Abs 0.2 0.0 - 0.4 x10(3)/[facility] Basophil % 0.7 % [facility] Baso Absolute 0.0 0.0 - 0.1 x10(3)/[facility] Immature Gran % 0.10 % [facility] Comment: Immature granulocytes(IG's)percentage and absolute count will include metamyelocytes, myelocytes, and promyelocytes. Blood smears from CBCs yielding IG's will be scanned manually for concordance. If this scan disagrees with the automated IG or if promyelocytes are noted, a manual differential will be performed. Immature Gran Absolute 0.01 0.00 - 0.04 x10(3)/[facility] Blood specimen (specimen) 08/06/2018 5:23 PM EST 08/06/2018 5:30 PM EST Narrative Resulting Agency Comment Spec In Lab Luca Cain MD HEMATOLOGY ORDERA BLES [facility] [place] [address] * (ABNORMAL) Hemogram (08/06/2018 5:23 PM EST) White Blood Cell 6.9 4.0 - 9.5 x10(3)/[facility] Red Blood Cell 4.00 4.00 - 5.21 x10(6)/[facility] Hemoglobin 12.8 11.7 - 15.5 gm/dL [facility] Hematocrit 38.7 35.7 - 45.8 % [facility] Mean Cell Volume 96.8(H) 82.6 - 94.4 fL [facility] Mean Cell Hemoglobin 32.0 27.1 - 32.0 pg [facility] Mean Cell Hemoglobin Concentration 33.1 31.7 - 35.0 gm/dL [facility] Platelet 261 145 - 357 x10(3)/[facility] RDW Standard Deviation 46.5(H) 37.0 - 46.0 [facility] RDW coefficient of variation 12.9 11.5 - 14.1 % [facility] Mean Platelet Volume 10.6 7.6 - 12.9 fL [facility] NRBC% auto 0.0 % [facility] NRBC Absolute 0.000 0.000 - 0.000 x10(3)/[facility] Blood specimen (specimen) 08/06/2018 5:23 PM EST 08/06/2018 5:30 PM EST Narrative Resulting Agency Comment Spec In Lab Luca Cain MD HEMATOLOGY ORDERA BLES [facility] [place] [address] * CRP, acute inflammation (08/06/2018 5:23 PM EST) C-Reactive Protein 0.9 <=4.9 mg/L [facility] Blood specimen (specimen) 08/06/2018 5:23 PM EST 08/06/2018 5:30 PM EST Narrative Resulting Agency Comment Spec In Lab Luca Cain MD CHEMISTRY ORDERAB LES [facility] [place] [address] * (ABNORMAL) Comprehensive metabolic panel (non-fasting) (08/06/2018 5:23 PM EST) Glucose 89 65 - 199 mg/dL [facility] Comment:Diabetes: >=200 mg/d L plus symptoms Blood Urea Nitrogen 16 8 - 18 mg/dL [facility] Creatinine 0.94 0.70 - 1.20 mg/dL [facility] Sodium 140 135 - 145 mmol/L [facility] Potassium 4.3 3.5 - 5.0 mmol/L [facility] Comment: Please note: ??Patients with WBC >100,000 may have falsely elevated Potassium levels. ??For accurate Potassium quantification in these patients send serum separator tube (gold top) for subsequent determinations. ??Contact the Clinical Chemistry Laboratory if there are any questions. Chloride 102 98 - 107 mmol/L [facility] Carbon Dioxide 25 22 - 31 mmol/L [facility] Anion Gap 13 5 - 15 mmol/L [facility] Calcium 9.2 8.5 - 10.5 mg/dL [facility] Protein, Total 7.6 6.1 - 8.0 gm/dL [facility] Albumin 4.3 3.2 - 5.2 gm/dL [facility] Aspartate Aminotransferase 16 0 - 30 unit/L [facility] Alanine Aminotransferase 11 0 - 30 unit/L [facility] Alkaline Phosphatase 109(H) 40 - 104 unit/L [facility] Bilirubin, Total 0.2 0.2 - 1.3 mg/dL [facility] Est Glomerular Filtration Rate 67 >=60 mL/min/1. 73 m?? [facility] Comment: The eGFR was calculated using the CKD-EPI equation. As with all creatinine based estimates of kidney function, eGFR values calculated with the CKD-EPI equation are not accurate in patients with acute kidney failure, extremes of body mass or the acutely ill. http://[email or web address] eGFR 78 >=60 mL/min/1. 73 m?? [facility] Comment: The eGFR was calculated using the CKD-EPI equation. As with all creatinine based estimates of kidney function, eGFR values calculated with the CKD-EPI equation are not accurate in patients with acute kidney failure, extremes of body mass or the acutely ill. http://[email or web address] Blood specimen (specimen) 08/06/2018 5:23 PM EST 08/06/2018 5:30 PM EST Narrative Resulting Agency Comment Spec In Lab Luca Cain MD CHEMISTRY ORDERAB LES Performing Organization Address [facility] Co de Phone Number [facility] [place] [address] * Tissue transglutaminase, IgA (08/06/2018 5:23 PM EST) TTG IgA Ab <1.2 <4.0 (Negative) unit/mL [facility] Comment: Test Performed by: [facility] - [address] [address] Blood specimen (specimen) 08/06/2018 5:23 PM EST 08/07/2018 9:04 AM EST Narrative Resulting Agency Comment Spec In Lab Luca Cain MD IMMUNOLOGY ORDERA BLES Performing Organization Address [facility] Co de Phone Number [facility] [place] [address] documented in this encounter Visit Diagnoses Diagnosis Celiac disease/sprue Celiac disease Chronic constipation Unspecified constipation Sjogren's syndrome, with unspecified organ involvement Celiac disease/sprue Celiac disease Chronic constipation Unspecified constipation Sjogren's syndrome, with unspecified organ involvement documented in this encounter Care Teams Ux Design Manager Relationship Specialty Start Date End Date Anthony Samaniego MD [address] [place] [address] PCP - General 07/16/14 documented as of this encounter
--- OUTSIDE RECORDS SUMMARY | 2024-05-17 08:45 | XMS_ITS | Encounter Summary ---
Author Organization [facility] Address [facility] [place] [address] Care Team Providers Care Digital Media Buyer Name Role Phone Anthony Samaniego MD Primary Care Provider [phone] Reason for Visit * Auth/Cert Specialty Diagnoses / Procedures Referred By Lindsey varghese Referred To Contact Diagnoses diverticulitis Procedures PRO COLONOSCOPY, DIAGNOSTIC COLONOSCOPY, DIAGNOSTIC Referral ID Status Reason Start Date Expiration Date Visits Re quested Visits Authorized [id number] 1 1 Encounter Details Date Type Department Care Team (Latest Contact Info) Description 10/26/2016 10:19 AM EST - 10/26/2016 12:56 PM [facility] Hospital Encounter [place] [address] Keyon Cantu MD [facility] [place] [address] Discharge Disposition: Home Social History Tobacco Use [...] - documented in this encounter Discharge Instructions * Discharge Instructions* Francine Chandler RN - 10/26/2016 12:38 PM EST [...] to be checked. Monday-Monday Same Day Endo [phone] Otherwise contact [phone] and ask to speak to the superintendent drilling reconnaissance man Follow up care is a castellano part of your treatment and safety. Be sure to make and go to all appointments, and call your doctor if you are having problems. Discharge instructions reviewed with patient who expresses understanding * Attachments The following attachments cannot be sent through Care Everywhere. * COLONOSCOPY: POST-OP (NEPALI) documented in this encounter Medications at Time of Discharge Medication Sig Dispensed Refills Start Date End Date DOCUSATE CALCIUM (STOOL SOFTENER ORAL) Take by mouth as needed. RIFAXIMIN 550 mg Tablet TAKE 1 TABLET BY MOUTH 3 TIMES A DAY FOR 14 DAYS 42 tablet 0 09/22/2015 05/17/2017 phenazopyridine (PYRIDIUM) 100 mg tablet Take 200 mg by mouth daily as needed. 10/24/2018 citalopram (CELEXA) 40 mg tablet Take 40 mg by mouth daily. 10/24/2018 ibuprofen (ADVIL;MOTRIN) 800 mg tablet Take 800 mg by mouth every 6 hours as needed. 11/26/2021 documented as of this encounter H&P Notes * Keyon Cantu MD - 10/26/2016 11:49 AM [...] 10:30 AM EST Office [place] [address] Benny Solano MD [facility] [place] [address] documented as of this encounter Procedures Procedure Name Priority Date/Time Associated Diagnosis Comments COLONOSCOPY, DIAGNOSTIC (WRVU 3.26) 10/26/2016 11:46 AM EST diverticulitis/william ac disease COLONOSCOPY Routine 10/26/2016 11:38 AM EST documented in this encounter Results * COLONOSCOPY (10/26/2016 11:38 AM EST) COLONOSCOPY [facility] Endoscopy Procedure Date: 10/26/2016 11:38 AM ? Patient Name: Ai Morrison ? Date of : 1960 ? Age: 56 ? Order #: [id number] ? Instrument Name: [id number] ? Procedure: ? Colonoscopy Indications: ? S/p diverticulitis Providers: ? Keyon Cantu MD, Leeanna Richards ? Rich, DANIEL, Severo Post MD: ?Anthony Samaniego MD Medicines: [...] preparation was evaluated using ? the BBPS ([place] Bowel Preparation ? Scale) with scores of: [...] Anthony Samaniego MD GENERAL SURGICAL ORDERABLES [employer] documented in this encounter Visit Diagnoses Not on filedocumented in this encounter Administered Medications Inactive Administered Medications - up to 3 most recent administrations Medication Order MAR Action Action Date Dose Rate Site lactated ringers infusion 50 mL/hr, Intravenous, CONTINUOUS, Starting on Mon10/26/16 at 1115, Until Mon10/26/16 at 1250, Endoscopy (Day of Procedure) New Bag 10/26/2016 11:15 AM EST 50 mL/hr 50 mL/hr documented in this encounter Active and Recently Administered Medications Times are shown in EST. Continuous Medication Order 10/24/2016 10/25/2016 10/26/2016 lactated ringers infusion (CANCELED) 50 mL/hr, Intravenous, CONTINUOUS, Starting on Mon10/26/16 at 1115, Until Mon10/26/16 at 1250, Endoscopy (Day of Procedure) 1115 (New Bag - Prov ider: Zandra Prado RN) PRN Medication Order 10/24/2016 10/25/2016 10/26/2016 fentaNYL 50 mcg/mL multi-dose injection (CANCELED) ONCE PRN, Starting on Mon10/26/16 at 1150, Until Mon10/26/16 at 1457, Intra-Operative (Intra-Procedure), Routine 1150 (Given - Provid er: Leeanna Villanueva RN)1153 (Given - Provider: Leeanna Villanueva RN)1156 (Given - Provider: Leeanna Villanueva RN)1159 (Given - Provider: Leeanna Villanueva RN) midazolam (PF) (VERSED) 1 mg/mL multi-dose injection (CANCELED) ONCE PRN, Starting on Mon10/26/16 at 1150, Until Mon10/26/16 at 1457, Intra-Operative (Intra-Procedure), Routine 1150 (Given - Provid er: Leeanna Villanueva RN)1153 (Given - Provider: Leeanna Villanueva RN)1156 (Given - Provider: Leeanna Villanueva RN)1159 (Given - Provider: Leeanna Villanueva RN) documented in this encounter Care Teams Digital Media Buyer Relationship Specialty Start Date End Date Anthony Samaniego MD [address] [facility] [address] [place] [address] PCP - General 07/16/14 documented as of this encounter
--- OUTSIDE RECORDS SUMMARY | 2024-05-17 08:45 | XMS_ITS | Encounter Summary ---
[place] [address] Care Team Providers Care Fleet Service Clerk Name Role Phone Panfilo, Vasyl DAVIES Primary Care Provider Reason for Visit * Reason Comments GI Problem Encounter Details Date Type Department Care Team ([facility] st Contact Info) Description 06/28/2012 3:00 PM EDT [place] [address] Keyon Cantu MD [facility] [place] [address] Celiac sprue (Primary Dx) Discharge Disposition: Home Social History Tobacco Use Types Packs/Day Years Used Date Smoking Tobacco: Never Smokeless Tobacco: Never Sex and Gender Information Value Date Recorded [...] documented in this encounter Progress Notes * Keyon Cantu MD - 06/28/2012 3:46 PM [...] testing, but it was not done at [facility]. I do not have those records [...] in the problems. 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 She does not smoke. She drinks two [...] Office Visit Rheumatology at [facility] [place] [address] Benny Solano MD [facility] [place] [address] documented as of this encounter Procedures Procedure Name Priority Date/Time Associated Diagnosis Comments DIFFERENTIAL, AUTOMATED Routine 06/28/2012 4:04 PM EDT IRON AND TIBC Routine 06/28/2012 4:04 PM EDT Celiac sprue TISSUE TRANSGLUTAMINASE, IGA Routine 06/28/2012 4:04 PM EDT Celiac sprue VITAMIN D, 25-HYDROXY Routine 06/28/2012 4:04 PM EDT CBC (WITH DIFF) Routine 06/28/2012 4:04 PM EDT Celiac sprue TSH Routine 06/28/2012 4:04 PM EDT Celiac sprue COMPREHENSIVE METABOLIC PANEL Routine 06/28/2012 4:04 PM EDT Celiac sprue documented in this encounter Results * VIT D TOTAL EVALUATION (06/28/2012 4:04 PM EDT) Vitamin D Total 25 OH 42 30 - 100 ng/mL [facility] Comment: Deficient <10 ng/mL Insufficient 10 to 29 ng/mL Sufficient 30 to 100 ng/mL Potential Intoxication >100 ng/mL According to the US National Osteoporosis Foundation, Vitamin D concentrations >30 ng/mL are sufficient to protect bone health. ??The National Kidney Foundation has similarly stated that patients with Vitamin D concentrations <30ng/mL should be considered to be insufficient or deficient. http://www.kidney.org/professionals/KDOQI/guidelines_bone/Guide7.htm http://www.nof.org/professionals/clinical-guidelines The IDS iSYS Vitamin D Immunoassay detects both 25-OH Vitamin D2 and 25-OH Vitamin D3, but only a total Vitamin D concentration is reported. Blood specimen (specimen) 06/28/2012 4:04 PM EDT 06/29/2012 12:09 PM EDT Narrative Resulting Agency Comment Spec In Lab Keyon Cantu MD CHEMISTRY ORDERABLES [facility] KunerangoENNIUM * DIFFERENTIAL, AUTOMATED (06/28/2012 4:04 PM EDT) Neutrophil % 53.5 34.0 - 71.0 % [facility] MILLENNIUM Neutrophil Absolute 3.39 1.50 - 6.30 x10(3)/mcL [facility] MILLENNIUM Lymph % 38.4 19.0 - 53.0 % [facility] MILLENNIUM Lymphocytes Abs 2.4 1.0 - 3.6 x10(3)/mcL [facility] MILLENNIUM Monocyte % 5.5 4.0 - 13.0 % [facility] MILLENNIUM Monocyte Abs 0.4 0.2 - 1.0 x10(3)/mcL [facility] MILLENNIUM Eos % 1.9 0.0 - 7.0 % [facility] MILLENNIUM Eosinophils Abs 0.1 0.0 - 0.5 x10(3)/mcL [facility] MILLENNIUM Basophil % 0.5 0.0 - 2.0 % [facility] MILLENNIUM Baso Absolute 0.0 0.0 - 0.2 x10(3)/mcL [facility] MILLENNIUM Immature Gran % 0.20 0.00 - 0.66 % [facility] MILLENNIUM Comment: Immature granulocytes(IG's)percentage and absolute count will include metamyelocytes, myelocytes, and promyelocytes. Blood smears from CBCs yielding IG's will be scanned manually for concordance. If this scan disagrees with the automated IG or if promyelocytes are noted, a manual differential will be performed. Immature Gran Absolute 0.01 0.00 - 0.05 x10(3)/mcL [facility] FRANCISCOENNIUM Blood specimen (specimen) 06/28/2012 4:04 PM EDT 06/28/2012 4:09 PM EDT Keyon Cantu MD HEMATOLOGY ORDERABLE S [facility] * Tissue transglutaminase, IgA (06/28/2012 4:04 PM EDT) TTG IgA Ab <4.0 <=3.9 u/ml [facility] Comment: Result Interpretation: Negative: ?<4 U/mL Weak Positive: ??4-10 U/mL Positive: ?>10 U/mL Blood specimen (specimen) 06/28/2012 4:04 PM EDT 06/29/2012 8:28 AM EDT Narrative Resulting Agency Comment Spec In Lab Keyon Cantu MD IMMUNOLOGY ORDERABLE S Performing Organization Address [facility]/ZIP Co de Phone Number [facility] MILLENNIUM * (ABNORMAL) Iron and TIBC (06/28/2012 4:04 PM EDT) Iron 43 30 - 150 mcg/dL [facility] MILLENNIUM TIBC 284 250 - 450 mcg/dL [facility] MILLENNIUM Iron Saturation 15(L) 20 - 50 % [facility] MILLENNIUM Blood specimen (specimen) 06/28/2012 4:04 PM EDT 06/28/2012 4:09 PM EDT Narrative Resulting Agency Comment Spec In Lab Keyon Cantu MD CHEMISTRY ORDERABLES Performing Organization Address [facility] Co de Phone Number [facility] MILLENNIUM * TSH (06/28/2012 4:04 PM EDT) Thyroid Stimulating Hormone 3.02 0.27 - 4.20 mcIU/mL [facility] MILLENNIUM Blood specimen (specimen) 06/28/2012 4:04 PM EDT 06/28/2012 4:09 PM EDT Narrative Resulting Agency Comment Spec In Lab Keyon Cantu MD CHEMISTRY ORDERABLES Performing Organization Address [facility] Co de Phone Number [facility] MILLENNIUM * (ABNORMAL) Comprehensive metabolic panel (non-fasting) (06/28/2012 4:04 PM EDT) Glucose 88 60 - 199 mg/dL [facility] MILLENNIUM Comment:Diabetes: >=200 mg/d L plus symptoms Blood Urea Nitrogen 14 8 - 18 mg/dL [facility] MILLENNIUM Creatinine 0.87 0.70 - 1.20 mg/dL [facility] MILLENNIUM Comment: Please note that the pediatric reference intervals supplied above were not validated at [facility]. Results from pediatric patients should be interpreted in conjunction to the patient's age, height and muscle mass. Sodium 139 135 - 145 mmol/L [facility] MILLENNIUM Potassium 4.0 3.5 - 5.0 mmol/L [facility] MILLENNIUM Comment: Please note: ??Patients with WBC >100,000 may have falsely elevated Potassium levels. ??For accurate Potassium quantification in these patients send serum separator tube (gold top) for subsequent determinations. ??Contact the Clinical Chemistry Laboratory if there are any questions. Chloride 102 98 - 107 mmol/L [facility] MILLENNIUM Carbon Dioxide 27 22 - 31 mmol/L [facility] MILLENNIUM Anion Gap 10 5 - 15 mmol/L [facility] MILLENNIUM Calcium 8.9 8.5 - 10.5 mg/dL [facility] MILLENNIUM Protein, Total 7.4 6.4 - 8.3 gm/dL [facility] MILL[facility]NI[facility] Albumin 4.3 3.2 - 5.2 gm/dL [facility] MILLENNIUM Aspartate Aminotransferase 21 0 - 30 unit/L [facility] MILLENNIUM Alanine Aminotransferase 11 0 - 30 unit/L [facility] MILLENNIUM Alkaline Phosphatase 105(H) 40 - 104 unit/L [facility] MILLENNIUM Bilirubin, Total 0.2 0.2 - 1.3 mg/dL [facility] MILLENNIUM Bilirubin, Direct 0.1 0.0 - 0.3 mg/dL [facility] MILLENNIUM Est Glomerular Filtration Rate >60 >=60 [facility] MILLENNIUM Comment: The National Kidney Disease Education Program (NKDEP) has recommended all laboratories report estimated GFR (eGFR) along with plasma creatinine measurements to assist you with recognition of early kidney disease. Caveats: ??Plasma creatinine should be at steady-state (unchanged within the past week). For patients multiply eGFR by 1.2. The MDRD equation was developed using patients between the ages of 18 and 70 years. ?? The MDRD equation has not been validated for patients < 18 years of age and should not be used to assess renal function in the pediatric population. ??The MDRD eGFR equation will also overestimate the true GFR of patients above the age of 70. ??This overestimation is variable but increases with age. At present, NKDEP does NOT recommend using the MDRD equation for drug dosing purposes and pharmacists should continue to use their current dosing methods. In addition, numerical eGFR values greater than 60 ml/min/1.73 square meters should be treated as > 60, and not an exact number due to greater inaccuracies at these higher values. Per NKDEP, they classify normal renal function as any GFR >60ml/min/1.73 square meters; chronic kidney disease when GFR <60, and renal failure when GFR <15. ??This calculation may not be valid for patients with atypical muscle mass (very lean or obese), acute renal failure, and in patients with diabetic kidney disease. References: http://nkdep.nih.gov/resources/NKDEP_Suggestn4Labs_0606_508.pdf http://www.kidney.org/professionals/kls/pdf/faq_gfr.pdf Darnell K, Gia NA, Rob AK, Jerry TS, Mary AD, Aurelio ALY. Relative performance of the MDRD and CKD-EPI equations for estimating glomerular filtration rate among patients with varied clinical presentations. Clin J Am Soc Nephrol;6:1963-72. Blood specimen (specimen) 06/28/2012 4:04 PM EDT 06/28/2012 4:09 PM EDT Narrative Resulting Agency Comment Spec In Lab Keyon Cantu MD CHEMISTRY ORDERABLES [facility] FRANCISCOENNIUM * (ABNORMAL) CBC (with Diff) (06/28/2012 4:04 PM EDT) White Blood Cell 6.3 4.0 - 10.0 x10(3)/mc L [facility] MILLENNIUM Red Blood Cell 3.84(L) 3.93 - 5.22 x10(6)/mc L [facility] MILLENNIUM Hemoglobin 12.5 11.2 - 15.7 gm/dL [facility] MILLENNIUM Hematocrit 38.1 34.0 - 45.0 % [facility] MILLENNIUM Mean Cell Volume 99.2(H) 79.0 - 94.0 fL [facility] MILLENNIUM Mean Cell Hemoglobin 32.6(H) 26.6 - 32.2 pg [facility] MILLENNIUM Mean Cell Hemoglobin Concentration 32.8 32.0 - 36.5 gm/dL [facility] MILLENNIUM Platelet 275 145 - 370 x10(3)/mc L [facility] MILLENNIUM RDW Standard Deviation 50.6(H) 35.0 - 46.0 fL [facility] MILLENNIUM RDW coefficient of variation 14.2 10.9 - 14.4 % [facility] MILLENNIUM Mean Platelet Volume 10.7 9.0 - 12.0 fL [facility] SINGHENNIUM Blood specimen (specimen) 06/28/2012 4:04 PM EDT 06/28/2012 4:09 PM EDT Narrative Resulting Agency Comment Spec In Lab Keyon Cantu MD HEMATOLOGY ORDERABLE S [facility] documented in this encounter Visit Diagnoses Diagnosis Celiac sprue- Primary Celiac disease documented in this encounter Care Teams Fleet Service Clerk Relationship Specialty Start Date End Date Vasyl Whittaker DO [address] [place] [address] PCP - General 08/17/10 07/15/14 documented as of this encounter
--- OUTSIDE RECORDS SUMMARY | 2024-05-17 08:45 | XMS_ITS | Encounter Summary ---
[place] [address] Care Team Providers Care Call Center Rn Name Role Phone Panfilo, Vasyl DAVIES Primary Care Provider Reason for Visit * Reason Comments Follow-up Encounter Details Date Type Department Care Team ([facility] st Contact Info) Description 12/31/2012 9:30 AM EDT [place] [address] Keyon Cantu MD [facility] [place] [address] Celiac disease (Primary Dx) Discharge Disposition: Home Social History [...] Progress Notes * Keyon Cantu MD - 12/31/2012 9:38 AM [...] so stopped. Controlled with stool softeners -Sitz marrosina study 2007 no markers after 5 days [...] was supportive but was not done at [facility]. She had right upper quadrant pain [...] EGD for biopsy. 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 She does not smoke. She drinks two [...] aneurysm. documented in this encounter Miscellaneous Notes * Addendum Note - Ellen Mae - 12/31/2012 10:42 AM EDTAddended by: ELLEN MAE on: 12/31/2012 10:42 AM Modules accepted: Orders documented in this encounter Plan of Treatment Upcoming Encounters Date Type Department Care Team (Late st Contact Info) Description 08/02/2024 10:30 AM EST Office [place] [facility] [place] [address] Benny Solano MD [facility] [place] [address] documented as of this encounter Procedures Procedure Name Priority Date/Time Associated Diagnosis Comments DIFFERENTIAL, AUTOMATED Routine 12/31/2012 10:45 AM EDT IRON AND TIBC Routine 12/31/2012 10:45 AM EDT Celiac disease CBC (WITH DIFF) Routine 12/31/2012 10:45 AM EDT Celiac disease documented in this encounter Results * Differential, Automated (12/31/2012 10:45 AM EDT) Neutrophil % 48.7 34.0 - 71.0 % [facility] MILLENNIUM Neutrophil Absolute 2.81 1.50 - 6.30 x10(3)/mcL [facility] MILLENNIUM Lymph % 43.2 19.0 - 53.0 % [facility] MILLENNIUM Lymphocytes Abs 2.5 1.0 - 3.6 x10(3)/mcL [facility] MILLENNIUM Monocyte % 5.5 4.0 - 13.0 % [facility] MILLENNIUM Monocyte Abs 0.3 0.2 - 1.0 x10(3)/mcL [facility] MILLENNIUM Eos % 1.9 0.0 - 7.0 % [facility] MILLENNIUM Eosinophils Abs 0.1 0.0 - 0.5 x10(3)/mcL [facility] MILLENNIUM Basophil % 0.7 0.0 - 2.0 % [facility] MILLENNIUM Baso Absolute 0.0 0.0 - 0.2 x10(3)/mcL [facility] MILLENNIUM Immature Gran % 0.00 0.00 - 0.66 % [facility] MILLENNIUM Comment: Immature granulocytes(IG's)percentage and absolute count will include metamyelocytes, myelocytes, and promyelocytes. Blood smears from CBCs yielding IG's will be scanned manually for concordance. If this scan disagrees with the automated IG or if promyelocytes are noted, a manual differential will be performed. Immature Gran Absolute 0.00 0.00 - 0.05 x10(3)/mcL [facility] MILLENNIUM Blood specimen (specimen) 12/31/2012 10:45 AM EDT 12/31/2012 10:54 AM EDT Keyon Cantu MD HEMATOLOGY ORDERABLE S [facility] * Iron and TIBC (12/31/2012 10:45 AM EDT) Iron 109 30 - 150 mcg/dL [facility] MILLENNIUM TIBC 273 250 - 450 mcg/dL [facility] MILLENNIUM Iron Saturation 40 20 - 50 % [facility] MILLENNIUM Blood specimen (specimen) 12/31/2012 10:45 AM EDT 12/31/2012 10:54 AM EDT Narrative Resulting Agency Comment Spec In Lab Keyon Cantu MD CHEMISTRY ORDERABLES [facility] MILLENNIUM * (ABNORMAL) CBC (with Diff) (12/31/2012 10:45 AM EDT) White Blood Cell 5.8 4.0 - 10.0 x10(3)/mc L [facility] MILLENNIUM Red Blood Cell 4.11 3.93 - 5.22 x10(6)/mc L [facility] MILLENNIUM Hemoglobin 13.6 11.2 - 15.7 gm/dL [facility] MILLENNIUM Hematocrit 40.5 34.0 - 45.0 % [facility] MILLENNIUM Mean Cell Volume 98.5(H) 79.0 - 94.0 fL [facility] MILLENNIUM Mean Cell Hemoglobin 33.1(H) 26.6 - 32.2 pg [facility] MILLENNIUM Mean Cell Hemoglobin Concentration 33.6 32.0 - 36.5 gm/dL [facility] MILLENNIUM Platelet 258 145 - 370 x10(3)/mc L [facility] MILLENNIUM RDW Standard Deviation 47.6(H) 35.0 - 46.0 fL [facility] MILLENNIUM RDW coefficient of variation 13.3 10.9 - 14.4 % [facility] MILLENNIUM Mean Platelet Volume 10.7 9.0 - 12.0 fL GERARDO MORILLO Blood specimen (specimen) 12/31/2012 10:45 AM EDT 12/31/2012 10:54 AM EDT Narrative Resulting Agency Comment Spec In Lab Keyon Cantu MD HEMATOLOGY ORDERABLE S GERARDO MORILLO documented in this encounter Visit Diagnoses Diagnosis Celiac disease- Primary documented in this encounter Care Teams Call Center Rn Relationship Specialty Start Date End Date Vasyl Whittaker DO [address] [place] [address] PCP - General 08/17/10 07/15/14 documented as of this encounter
--- OUTSIDE RECORDS SUMMARY | 2024-05-17 08:45 | XMS_ITS | Encounter Summary ---
Author Organization [facility] [place] [address] Care Team Providers Care Electrician Aircraft Name Role Phone Anthony Samaniego MD Primary Care Provider [phone] Reason for Visit * Auth/Cert Specialty Diagnoses / Procedures Referred By Lindsey varghese Referred To Contact Diagnoses diverticulitis Procedures PRO COLONOSCOPY, DIAGNOSTIC COLONOSCOPY, DIAGNOSTIC Referral ID Status Reason Start Date Expiration Date Visits Re quested Visits Authorized [id number] 1 1 Encounter Details Date Type Department Care Team (Late st Contact Info) Description 10/26/2016 11:30 AM EST - 10/26/2016 12:00 PM EST [place] [address] Keyon Cantu MD [facility] [place] [address] COLONOSCOPY, DIAGNOSTIC (WRVU 3.26) Social History Tobacco [...] to be checked. Monday-Monday Same Day Endo [phone] Otherwise contact [phone] and ask to speak to the senior biostatistician/group leader national investigative producer Follow up care is a castellano part of your treatment and safety. Be sure to make and go to all appointments, and call your doctor if you are having problems. Discharge instructions reviewed with patient who expresses understanding * Attachments The following attachments cannot be sent through Care Everywhere. * COLONOSCOPY: POST-OP (WOLOF) documented in this encounter Medications at Time [...] 10:30 AM EST Office [place] [address] Benny Solano MD [facility] [place] [address] documented as of this encounter Procedures Procedure Name Priority Date/Time Associated Diagnosis Comments COLONOSCOPY, DIAGNOSTIC (WRVU 3.26) 10/26/2016 11:46 AM EST diverticulitis/william ac disease COLONOSCOPY Routine 10/26/2016 11:38 AM EST documented in this encounter Results * COLONOSCOPY (10/26/2016 11:38 AM EST) COLONOSCOPY [facility] Endoscopy Procedure Date: 10/26/2016 11:38 AM ? Patient Name: Ai Morrison ? Date of : 1960 ? Age: 56 ? Order #: [id number] ? Instrument Name: [id number] ? Procedure: ? Colonoscopy Indications: ? S/p [...] preparation was evaluated using ? the BBPS ([place]burn Bowel Preparation ? Scale) with scores of: [...] Dose Rate Site fentaNYL 50 mcg/mL multi-dose injection ONCE PRN, Starting on Mon10/26/16 at 1150, Until Mon10/26/16 at 1457, Intra-Operative (Intra-Procedure), Routine Given 10/26/2016 11:59 AM EST 50 mcg Given 10/26/2016 11:56 AM EST 50 mcg Given 10/26/2016 11:53 AM EST 50 mcg lactated ringers infusion 50 mL/hr, Intravenous, CONTINUOUS, Starting on Mon10/26/16 at 1115, Until Mon10/26/16 at 1250, Endoscopy (Day of Procedure) New Bag 10/26/2016 11:15 AM EST 50 mL/hr 50 mL/hr midazolam (PF) (VERSED) 1 mg/mL multi-dose injection ONCE PRN, Starting on Mon10/26/16 at 1150, Until Mon10/26/16 at 1457, Intra-Operative (Intra-Procedure), Routine Given 10/26/2016 11:59 AM EST 1 mg Given 10/26/2016 11:56 AM EST 1 mg [...] Leeanna Villanueva RN)[id number] (Given - Provider: Leeanna E Santaniello, RN) documented in this encounter Care Teams Electrician Aircraft Relationship Specialty Start Date End Date Anthony Samaniego MD [address] [place] [address] PCP - General 07/16/14 documented as of this encounter
--- OUTSIDE RECORDS SUMMARY | 2024-05-17 08:45 | XMS_ITS | Encounter Summary ---
Author Organization [facility] [place] [address] Care Team Providers Care Preparatory Technician Name Role Phone Panfilo Vasyl DAVIES Primary Care Provider Encounter Details Date Type Department Care Team (Latest Contact Info) Description 07/24/2013 2:58 PM EDT - 07/24/2013 11:59 PM EDT Hospital [place] [address] Keyon Cantu MD [facility] [place] [address] Celiac disease Discharge Disposition: Home Social History Tobacco Use [...] SOFTENER ORAL) Take by mouth as needed. phenazopyridine (PYRIDIUM) 100 mg tablet Take 200 mg by mouth daily as needed. 10/24/2018 citalopram (CELEXA) 40 mg tablet Take 40 mg by mouth daily. 10/24/2018 ibuprofen (ADVIL;MOTRIN) 800 mg tablet Take 800 mg by mouth every 6 hours as needed. 11/26/2021 documented as of this encounter Miscellaneous Notes * Miscellaneous - Provider, Scanning - 08/19/2013 1:21 PM EST documented in this encounter Plan of Treatment Upcoming Encounters Date Type Department Care Team (Late st Contact Info) Description 08/02/2024 10:30 AM EST Office [place] [address] Benny Solano MD [facility] [place] [address] documented as of this encounter Procedures Procedure Name Priority Date/Time Associated Diagnosis Comments MRI ENTEROGRAPHY WITH/WO CONTRAST Routine 07/24/2013 5:53 PM EDT Celiac disease documented in this encounter Results * MRI enterography with/WO contrast (07/24/2013 5:53 PM EDT) Anatomical Region Laterality Modality Abdomen Magnetic Resonan ce 07/24/2013 5:53 PM EDT Narrative 07/25/2013 9:38 AM EDT Examination MR Enterography With and Without Contrast Clinical History RLQ pain ?? r/o inflammation in small intestine Comparison CT of the abdomen and pelvis 05/10/2010. Technique Routine multiplanar MR enterography was performed before and after administration of 19 mL Magnevist IV contrast without complication. Findings The small bowel and colon are unremarkable. ??There is normal peristalsis and no evidence of transmural inflammation, mesenteric inflammatory stranding, or bowel wall thickening. A single borderline enlarged lymph node is present in the deep pelvis measuring 11 mm (series 6, image 10). No other enlarged lymph nodes are identified. A left adrenal adenoma is slightly decreased in size compared with the prior CT, now measuring 29 x 21 mm. Adrenal glands are otherwise unremarkable. The visualized portion of the liver is unremarkable with no intra or extrahepatic biliary ductal dilatation. The patient is post cholecystostomy since the prior study. The spleen, kidneys, and pancreas are unremarkable. No pleural effusions in the visualized portion the lungs. Mild degenerative bone marrow signal changes are seen in the visualized thoracolumbar spine and pelvis with no aggressive osseous lesions identified. ?? Impression ? 1. No evidence of inflammatory bowel disease or acute finding to explain the patient's symptoms. ? 2. Stable benign left adrenal adenoma. ? 3. Incidental single borderline enlarged deep pelvic lymph node. Film and interpretation reviewed by the attending Procedure Note Severo Colmenares MD - 07/25/2013 Examination MR Enterography With and Without Contrast Clinical History RLQ pain r/o inflammation in small intestine Comparison CT of the abdomen and pelvis 05/10/2010. Technique Routine multiplanar MR enterography was performed before and after administration of 19 mL Magnevist IV contrast without complication. Findings The small bowel and colon are unremarkable. There is normal peristalsisand no evidence of transmural inflammation, mesenteric inflammatory stranding, or bowel wall thickening. A single borderline enlarged lymph node is presentin the deep pelvis measuring 11 mm (series 6, image 10). No other enlargedlymph nodes are identified. A left adrenal adenoma is slightly decreased in size compared with the prior CT, now measuring 29 x 21 mm. Adrenal glands are otherwise unremarkable. The visualized portion of the liver isunremarkable with no intra or extrahepatic biliary ductal dilatation. The patient ispost cholecystostomy since the prior study. The spleen, kidneys, and pancreasare unremarkable. No pleural effusions in the visualized portion the lungs.Mild degenerative bone marrow signal changes are seen in the visualized thoracolumbar spine and pelvis with no aggressive osseous lesionsidentified. Impression 1. No evidence of inflammatory bowel disease or acute finding toexplain the patient's symptoms. 2. Stable benign left adrenal adenoma. 3. Incidental single borderline enlarged deep pelvic lymph node. Film and interpretation reviewed by the attending Keyon Cantu MD IMG MRI ORDERABLES documented in this encounter Visit Diagnoses Diagnosis Celiac disease documented in this encounter Care Teams Preparatory Technician Relationship Specialty Start Date End Date Vasyl Whittaker DO [address] [place], [place] [address] [address] [place] [address] PCP - General 08/17/10 07/15/14 documented as of this encounter
--- OUTSIDE RECORDS SUMMARY | 2024-05-17 08:45 | XMS_ITS | Encounter Summary ---
[place] [address] Care Team Providers Care Hot Box Checker Name Role Phone Anthony Samaniego MD Primary Care Provider +1 [phone] Encounter Details Date Type Department Care Team (Late st Contact Info) Description 12/05/2007 Orders [place] [phone] Melvin Figueroa MD [facility] [place] [address] Social History Tobacco Use Types Packs/Day Years [...] 10:30 AM EST Office [place] [address] Benny Solano MD [facility] RHEUMATOLOGY [place], [place] [id number] documented as of this encounter Procedures Procedure Name Priority Date/Time Associated Diagnosis Comments SURGICAL PATHOLOGY REPORT Routine 12/05/2007 1:24 PM EDT documented in this encounter Results * Surgical Pathology Report (12/05/2007 1:24 PM EDT) Surgical Pathology Report [id number] ? Location: 4T The signing pathologist has (i) examined the relevant preparation(s) for the specimen(s) and (ii) rendered or confirmed the diagnosis(es). . ?Pathology Surgical Pathology Final Report Clinical Information Specimen Submitted: A - Tissue: duodenum Clinical Diagnosis: Celiac sprue Gross Description Labeled/Fixativ e: ? Tissue duodenum, formalin. Qty/Size/Weight : ?Six, averaging 0.2 cm in greatest dimension. Tissue Description: ?? Friable, soft, márquez tissues. Sections/Proces sing: ??(T2) ??aje/PPS Microscopic Description Slides reviewed, microscopic description not recorded. Diagnosis Endoscopic biopsy - ??Duodenal mucosa within normal limits, including preserved villous architecture. CR-0 12/06/07 AAS 12/06/07 Verified by: ? Jose Mccormick MD ?Pathologist ?(Electronic Signature) The attending pathologist whose signature appears on this report has reviewed all diagnostic slides and has edited the gross and/or microscopic portion of the report in rendering the final pathologic diagnosis. GERARDO MORILLO 12/05/2007 1:24 PM EDT Melvin Figueroa MD PATHOLOGY/CYTOLOGY O RDERABLES GERARDO SINGHENNIUM documented in this encounter Visit Diagnoses Not on filedocumented in this encounter Care Teams Hot Box Checker Relationship Specialty Start Date End Date Anthony Samaniego MD [address] [facility] [place] [address] PCP - General 07/16/14 documented as of this encounter
--- OUTSIDE RECORDS SUMMARY | 2024-05-17 08:45 | XMS_ITS | Encounter Summary ---
Author Organization [facility] [place] [address] Care Team Providers Care Mail Processing Machine Operator Name Role Phone Anthony Samaniego MD Primary Care Provider [phone] [phone] Encounter Details Date Type Department Care Team (Late st Contact Info) Description 07/27/2015 - 07/27/2015 11:59 PM EST Hospital Encounter [place] [phone] Dr Matheus Temporary Pain Discharge Disposition: Home Social History Tobacco Use [...] 10:30 AM EST Office [place] [address] Benny Solano MD [facility] [place] [address] documented as of this encounter Procedures Procedure Name Priority Date/Time Associated Diagnosis Comments FILM LIBRARY STORAGE ONLY CT ABDOMEN AND PELVIS Routine 07/27/2015 12:00 AM EST Pain documented in this encounter Results * Film Library- Storage Only CT Abdomen & Pelvis (07/27/2015 12:00 AM EST) Narrative [facility] - 09/02/2015 2:26 PM EST See PACS for result report. Dr [facility]D ERAB[facility] [place], [place] documented in this encounter Visit Diagnoses Diagnosis Pain Generalized pain documented in this encounter Care Teams Mail Processing Machine Operator Relationship Specialty Start Date End Date Anthony Samaniego MD [address] [place] [address] PCP - General 07/16/14 documented as of this encounter
--- OUTSIDE RECORDS SUMMARY | 2024-05-17 08:45 | XMS_ITS | Clinical Summary ---
Author Organization [facility] Address [address] [place] [address] Care Team Providers Care Direct Entry Midwife Name Role Phone Vasyl Whittaker Primary Care Provider [phone]- [phone] Social History Tobacco Use Types Packs/Day Years Used Date Smoking Tobacco: Never Assessed Interpersonal Safety Answer Date Record ed Physically Hurt Never 04/26/2020 Verbally Threaten Not on file 04/26/2020 Sex and Gender Information Value Date Recorded Sex Assigned at Not on file Gender Identity Not on file Sexual Orientation Not on file Plan of Treatment Health Maintenance Due Date Last Done Comments RSV Immunization ( o r 60+ Years) (1 - 1-dose 60+ series) 2020 COVID-19 Vaccine ( season) 2023 Hepatitis C Screen Completed 10/29/2021 Procedures Procedure Name Priority Date/Time Associated Diagnosis Comments HEPATITIS C AB W REFLEX TO HCV RNA BY PCR Today 10/29/2021 13:15 EST from Last 3 Months or Most Recently Relevant to Health Maintenance Results * HEPATITIS C AB W REFLEX TO HCV RNA BY PCR (10/29/2021 13:15 EST) Hep C Antibody Negative Negative 11/01/2021 10:27 EST [facility] Blood VENOUS BLOOD / Unknown 10/29/2021 13:15 EST 10/29/2021 22:05 EST Provider Outr Resulting Lab CHEMISTRY & BLOOD GAS ORDERABLES [facility] [address] [place] [address] from Last 3 Months or Most Recently Relevant to Health Maintenance Care Teams Direct Entry Midwife Relationship Specialty Start Date End Date Vasyl Whittaker, [address] [place], [place] [address]ALEJANRDO LEONG [address] PCP - General 12/23/10
--- OUTSIDE RECORDS SUMMARY | 2024-05-17 08:45 | XMS_ITS | Encounter Summary ---
[place] [address] Care Team Providers Care Deicer Kit Assembler Name Role Phone Anthony Samaniego MD Primary Care Provider +1 [phone] Encounter Details Date Type Department Care Team (Late st Contact Info) Description 08/22/2018 Telephone [place] [phone] Roberta Dempsey, RN Social History Tobacco Use [...] Telephone Encounter - Roberta Dempsey, RN - 08/22/2018 1:48 PM EST Ai calls becuase she had her CT scan this am at her local hospital and started to have nausea and vomiting while still in radiology. She was going [...] 10:30 AM EST Office [place] [address] Benny Solano MD [facility] [place] [address] documented as of this encounter Visit Diagnoses Not on filedocumented in this encounter Care Teams Deicer Kit Assembler Relationship Specialty Start Date End Date Anthony Samaniego MD [address] [facility] 1 [place] [address] PCP - General 07/16/14 documented as of this encounter
--- OUTSIDE RECORDS SUMMARY | 2024-05-17 08:45 | XMS_ITS | Encounter Summary ---
Author Organization [facility] [place] [address] Care Team Providers Care Business Liaison Manager Name Role Phone Anthony Samaniego MD Primary Care Provider [phone] [phone] Encounter Details Date Type Department Care Team (Late st Contact Info) Description 12/31/2014 - 12/31/2014 11:59 PM EDT Hospital Encounter [place] [phone] Dr Matheus Temporary Pain Discharge Disposition: Home [...] 10:30 AM EST Office Visit [place] [address] Benny Solano MD [facility] [place] [address] documented as of this encounter Procedures Procedure Name Priority Date/Time Associated Diagnosis Comments FILM LIBRARY STORAGE ONLY DX GI STUDY Routine 12/31/2014 12:00 AM EDT Pain documented in this encounter Results * Film Library- Storage only DX GI Study (12/31/2014 12:00 AM EDT) Narrative [facility] - 09/02/2015 2:25 PM EST See PACS for result report. Dr [facility]erre[facility] ORD ERABLES [place], [place] documented in this encounter Visit Diagnoses Diagnosis Pain Generalized pain documented in this encounter Care Teams Business Liaison Manager Relationship Specialty Start Date End Date Anthony Samaniego MD [address] [place] [address] PCP - General 07/16/14 documented as of this encounter
--- OUTSIDE RECORDS SUMMARY | 2024-05-17 08:45 | XMS_ITS | Encounter Summary ---
[place] [address] Care Team Providers Care Area Development Manager Name Role Phone Anthony Samaniego MD Primary Care Provider +1 [phone] Encounter Details Date Type Department Care Team (Late st Contact Info) Description 05/10/2010 Orders Only [place] [address] Keyon Cantu MD [facility] [place] [address] Social History Tobacco Use Types Packs/Day Years [...] 10:30 AM EST Office Visit [place] [address] Benny Solano MD [facility] [place] [address] documented as of this encounter Procedures Procedure Name Priority Date/Time Associated Diagnosis Comments SURGICAL PATHOLOGY REPORT Routine 05/10/2010 2:46 PM EDT documented in this encounter Results * Surgical Pathology Report (05/10/2010 2:46 PM EDT) Surgical Pathology Report [id number] ? Location: 4T The signing pathologist has (i) examined the relevant preparation(s) for the specimen(s) and (ii) rendered or confirmed the diagnosis(es). . ?Pathology Surgical Pathology Final Report Clinical Information Specimen Submitted: A - R/o celiac disease, duodenum Clinical History: Pt with ? H/O celiac disease Clinical Diagnosis: Re-eval adrenal mass active vs latent Crohn's Gross Description Labeled/Fixativ e: ? R/O celiac disease duodenum, formalin. Qty/Size/Weight : ?Multiple, averaging 0.2 cm in diameter. Tissue Description: ?? Soft, márquez tissues. Sections/Proces sing: ??(T1) ??vms/PPS Microscopic Description Slides reviewed, microscopic description not recorded. Diagnosis A - Duodenum, biopsy: ?Duodenal mucosa with severe villous blunting and increased ?intraepitheli al lymphocytes consistent with the history of celiac ?disease. CR-0 05/12/10 JLK 05/12/10 Verified by: ? Nigel Cueto MD ?Pathologist ?(Electronic Signature) The attending pathologist whose signature appears on this report has reviewed all diagnostic slides and has edited the gross and/or microscopic portion of the report in rendering the final pathologic diagnosis. [facility] 05/10/2010 2:46 PM EDT Keyon Cantu MD PATHOLOGY/CYTOLOGY O RDERABLES Performing Organization Address City/State/[facility] Co nd Phone Number [facility] documented in this encounter Visit Diagnoses Not on filedocumented in this encounter Care Teams Area Development Manager Relationship Specialty Start Date End Date Anthony Samaniego MD [address] [place] [address] PCP - General 07/16/14 documented as of this encounter
--- OUTSIDE RECORDS SUMMARY | 2024-05-17 08:45 | XMS_ITS | Encounter Summary ---
Author Organization [facility] [place] [address] Care Team Providers Care Builder Operator Name Role Phone Anthony Samaniego MD Primary Care Provider +1 -[phone] Encounter Details Date Type Department Care Team (Latest Contact Info) Description 11/15/2017 3:24 PM EST - 11/15/2017 11:59 PM EST Hospital Encounter XRay at [address] [place] [address] Patty Hebert MD [facility] [place] [address] Polyarthralgia; Fatigue, unspecified type Discharge Disposition: Home Social History Tobacco Use [...] SOFTENER ORAL) Take by mouth as needed. naproxen (NAPROSYN) 500 mg Tablet Take 1 tablet by mouth 2 times daily (with meals). 60 tablet 1 11/15/2017 10/24/2018 rifAXIMin (RIFAXIMIN) 550 mg Tablet Take 1 tablet by mouth 3 times daily. 42 tablet 05/17/2017 10/24/2018 phenazopyridine (PYRIDIUM) 100 mg tablet Take 200 [...] 10:30 AM EST Office [place] [address] Benny Solano MD [facility] [place] [address] documented as of this encounter Procedures Procedure Name Priority Date/Time Associated Diagnosis Comments XR KNEE AP AND LAT BILAT Routine 11/15/2017 3:38 PM EST Polyarthralgia Fatigue, unspecified type documented in this encounter Results * XR Knee 1-2 Views Bilat (Generic) (11/15/2017 3:38 PM EST) Anatomical Region Laterality Modality Knee Bilateral Digital Radiogra phy Impressions 11/15/2017 5:06 PM EST Bilateral knee joint osteoarthropathy. I have personally reviewed the image(s) and the residents interpretation and agree with the findings, Yenifer Ferguson at 11/15/2017 5:06 PM Narrative 11/15/2017 5:06 PM EST EXAMINATION: XR KNEE 1-2 VIEWS BILAT (GENERIC) CLINICAL HISTORY: b/l knee pain R>L TECHNIQUE: AP and lateral radiographs of the bilateral knees. COMPARISON: None FINDINGS: Bilateral medial joint space narrowing and marginal osteophyte formation consistent with osteoarthropathy. No acute osseous injury. No joint effusion. No radiographically evident soft tissue swelling. Procedure Note Yenifer Ferguson MD - 11/15/2017 EXAMINATION: XR KNEE 1-2 VIEWS BILAT (GENERIC) CLINICAL HISTORY: b/l knee pain R>L TECHNIQUE: AP and lateral radiographs of the bilateral knees. COMPARISON: None FINDINGS: Bilateral medial joint space narrowing and marginal osteophyte formation consistent with osteoarthropathy. No acute osseous injury. No jointeffusion. No radiographically evident soft tissue swelling. IMPRESSION Bilateral knee joint osteoarthropathy. I have personally reviewed the image(s) and the residents interpretationand agree with the findings, Yenifer Ferguson at 11/15/2017 5:06 PM Patty Hebert MD IMG DX ORDERABLES documented in this encounter Visit Diagnoses Diagnosis Polyarthralgia Pain in joint, multiple sites Fatigue, unspecified type documented in this encounter Care Teams Builder Operator Relationship Specialty Start Date End Date Anthony Samaniego MD [address] [place] [address] PCP - General 07/16/14 documented as of this encounter
--- OUTSIDE RECORDS SUMMARY | 2024-05-17 08:45 | XMS_ITS | Encounter Summary ---
Author Organization [facility] [place] [address] Care Team Providers Care Telecommunications Analyst Name Role Phone Anthony Samaniego MD Primary Care Provider [phone] [phone] Encounter Details Date Type Department Care Team (Latest Contact Info) Description 08/13/2016 - 08/13/2016 11:59 PM EST Hospital Encounter [place] [address] John Perez MD [facility] [place] [address] Pain Discharge Disposition: Home Social History Tobacco [...] 10:30 AM EST Office [place] [address] Benny Solano MD [facility] [place] [address] documented as of this encounter Procedures Procedure Name Priority Date/Time Associated Diagnosis Comments FILM LIBRARY STORAGE ONLY DX ABDOMEN Routine 08/13/2016 12:00 AM EST Pain documented in this encounter Results * Film Library- Storage Only DX Abdomen (08/13/2016 12:00 AM EST) Narrative [facility] - 08/22/2016 12:27 PM EST This exam is for storage only and is auto-finalizing. John Perez MD IM FILM LIBRARY ORD ERABLES [place], [place] documented in this encounter Visit Diagnoses Diagnosis Pain Generalized pain documented in this encounter Care Teams Telecommunications Analyst Relationship Specialty Start Date End Date Anthony Samaniego MD [address] [place] [address] PCP - General 07/16/14 documented as of this encounter
--- OUTSIDE RECORDS SUMMARY | 2024-05-17 08:45 | XMS_ITS | Encounter Summary ---
[place] [address] Care Team Providers Care Production Artist Name Role Phone Anthony Samaniego MD Primary Care Provider +1 -[phone] Reason for Visit * Reason Onset Date Comments Medication Refill 05/17/2017 Encounter Details Date Type Department Care Team (Late st Contact Info) Description 05/17/2017 Refill [place] [address] Roberta Dempsey RN Social History Tobacco Use [...] Notes * Telephone Encounter - Roberta Dempsey, DANIEL - 05/17/2017 11:32 AM EDTFrom: Ai [place] To: Elba Cain MD Sent: 05/17/2017 11:14 AM EDT Subject: Medication Renewal Request Original authorizing provider: MD Ai ROWE Odilon Tamiko would like a refill of the following medications: RIFAXIMIN 550 mg Tablet [ELBA CAIN MD] [facility]erred pharmacy: [id number] [place], [place] - [address] [place] [address] Comment: I'm requesting a renewal since I'm having recurring symptoms and was hoping to not have to have another hydrogen breath test... thank you [phone] Ai [place] documented in this encounter Plan of Treatment Upcoming Encounters Date Type Department Care Team (Late st Contact Info) Description 08/02/2024 10:30 AM EST Office [place] [address] Benny Solano MD [facility] [place] [address] documented as of this encounter Visit Diagnoses Not on filedocumented in this encounter Care Teams Production Artist Relationship Specialty Start Date End Date Anthony Samaniego MD [address] [place] [address] PCP - General 07/16/14 documented as of this encounter
--- OUTSIDE RECORDS SUMMARY | 2024-05-17 08:45 | XMS_ITS | Encounter Summary ---
[place] [address] Care Team Providers Care Claims Clerk Name Role Phone Anthony Samaniego MD Primary Care Provider +1 -[phone] Encounter Details Date Type Department Care Team (Late st Contact Info) Description 09/27/2018 Tele[place] [address] Doris Soria Social History Tobacco Use Types [...] * Telephone Encounter - Doris Soria - 09/27/2018 12:45 PM EST Called pt to schedule ARM; no answer, left voicemail. -bcj documented in this encounter Plan of Treatment Upcoming Encounters Date Type Department Care Team (Late st Contact Info) Description 08/02/2024 10:30 AM EST [place] [address] Benny Solano MD [facility] [address] [place] [address] documented as of this encounter Visit Diagnoses Not on filedocumented in this encounter Care Teams Claims Clerk Relationship Specialty Start Date End Date Anthony Samaniego MD [address] [place] [address] PCP - General 07/16/14 documented as of this encounter
--- OUTSIDE RECORDS SUMMARY | 2024-05-17 08:45 | XMS_ITS | Encounter Summary ---
[place] [address] Care Team Providers Care Guidance Services Coordinator Name Role Phone Anthony Samaniego MD Primary Care Provider +1 -[phone] Encounter Details Date Type Department Care Team (Late st Contact Info) Description 08/26/2016 Telephone [place] [address] Aman Grant Social History Tobacco Use Types Packs/Day Years [...] encounter Miscellaneous Notes * Telephone Encounter - Aman Grant - 08/26/2016 [...] 10:30 AM EST Office [place] [address] Benny Solano MD [facility] [place] [address] documented as of this encounter Visit Diagnoses Not on filedocumented in this encounter Care Teams Guidance Services Coordinator Relationship Specialty Start Date End Date Anthony Samaniego MD [address] [place] [address] PCP - General 07/16/14 documented as of this encounter
--- OUTSIDE RECORDS SUMMARY | 2024-05-17 08:45 | XMS_ITS | Encounter Summary ---
Author Organization [facility] [address] Care Team Providers Care Travel Consultant Name Role Phone Panfilo Vasyl DAVIES Primary Care Provider Encounter Details Date Type Department Care Team (Late st Contact Info) Description 04/05/2013 9:39 PM EDT - 04/05/2013 11:59 PM EDT [place] [address] Susanna Mackay MD [address] [place] [address] Discharge Disposition: Home Social History Tobacco Use [...] 10:30 AM EST Office Visit Rheumatology at [facility] [place] [address] Benny Solano MD [facility] [place] [address] documented as of this encounter Procedures Procedure Name Priority Date/Time Associated Diagnosis Comments NON-CONTRACTING ENGINEER FINAL REPORT Routine 04/05/2013 9:08 PM EDT documented in this encounter Results * Non-Fabrication Machine Operator Final Report (04/05/2013 9:08 PM EDT) Non-Fabrication Machine Operator Final Report ? [facility] ? Provider: ?? SUSANNA MACKAY ?? Pt. Name: ?? AI CATES ? Acc #: ?[id number] ?Pt. ? Col Date: ?? 04/05/2013 ? /Sex: ?1960,(53 years),Female ? Rec Date: ?? 04/08/2013 ? LOC: ?[facility] ? CYTOPATHOLOGY: ??NGYN ? ---Adequacy--- ? Specimen submitted is satisfactory. ? ---Cytopathologic Diagnosis--- ? Negative for Malignancy ? 04/10/13 ?Screened by: ? REP ? Rescreened by: ?? SATNAM ? 07/17/13 ?Verified by: ? Iban AJ, Mainor Lewis ?Pathologist ?(Electronic Signature) ? ---Comment--- ? Urine, Voided: ? [...] fluid. ?Total Preparation: Liquid Based Prep 1. GERARDO MORILLO 04/05/2013 9:08 PM EDT Susanna Mackay MD PATHOLOGY/CYTOLOGY O RDERABLES Performing Organization Address City/State/[facility] Co de Phone Number GERARDO MORILLO documented in this encounter Visit Diagnoses Not on filedocumented in this encounter Care Teams Travel Consultant Relationship Specialty Start Date End Date Vasyl Whittaker DO [address] [place] [address] PCP - General 08/17/10 07/15/14 documented as of this encounter
--- OUTSIDE RECORDS SUMMARY | 2024-05-17 08:45 | XMS_ITS | Encounter Summary ---
[place] [address] Care Team Providers Care Service Transformer Repair Supervisor Name Role Phone Panfilo, Vasyl DAVIES Primary Care Provider Reason for Visit * Reason Comments Follow-up Encounter Details Date Type Department Care Team ([facility] st Contact Info) Description 07/18/2013 4:05 PM EDT Follow-[place] [address] Keyon Cantu MD [facility] [place] [place] [address] Celiac disease (Primary Dx) Discharge Disposition: Home [...] Progress Notes * Keyon Cantu MD - 07/18/2013 4:26 PM [...] no Stones. 6. RLQ pain CT scan [facility], normal Ultrasound, ovarian cyst stable 7. CRC mother, last colo 2006 8. Diamond 02/06/13 Normal, EGD Normal, duodenal bx normal [...] extrinsically. She had a CT scan in [facility] this report. She relates that it [...] 10:30 AM EST Office [place] [address] Benny Solano MD [facility] [place] [address] documented as of this encounter Visit Diagnoses Diagnosis Celiac disease- Primary documented in this encounter Care Teams Service Transformer Repair Supervisor Relationship Specialty Start Date End Date Vasyl Whittaker DO [address] [place] [address] PCP - General 08/17/10 07/15/14 documented as of this encounter
--- OUTSIDE RECORDS SUMMARY | 2024-05-17 08:45 | XMS_ITS | Encounter Summary ---
[place] [address] Care Team Providers Care Rn Medical Surgical Name Role Phone Anthony Samaniego MD Primary Care Provider [phone] Reason for Visit * Reason Comments GI Problem Encounter Details Date Type Department Care Team ([facility] st Contact Info) Description 08/26/2015 9:00 AM EST Office [place] [address] Luca Cain MD [facility] [place] [address] Celiac disease/sprue (Primary Dx); Chronic constipation Social History Tobacco Use Types Packs/Day Years [...] * Patient Instructions* Luca Cain MD - 08/26/2015 10:05 AM EST Blood [...] diet. documented in this encounter Progress Notes * Luca Cain MD - 08/26/2015 4:26 PM [...] for a second opinion regarding her chronic constipation,abdominal pain and concern about prior findings on [...] does feel sensation of fullness and bloating daily.She reports eating a full box and a [...] and Colonoscopy in 2013 was normal. More recentlyCT in ED one month (report and images not available) also noted a few prominent mesenteric lymph nodes or unclear significance. She continues to deny fever, chills, weight loss or other constitutional symptoms concerning for lymphoma. As CT did not show small bowel abnormality and MRE was normal [id number] I do not see a role for Capsule at this time. Most common reason fore ongoing symptoms in celiac patients is gluten exposure so I think we shouldrepeat Gliadin antibodies IgA and IgG and tTG. [...] for small intestinal bacterial overgrowth (SIBO) and if positive then treat with antibiotics. For chronic constipation we discussed goal of 20-30grams of fiber daily, with additional Miralax asneeded as well as adequate hydration and exercise. OK to use a probiotic and/or probiotics foods such as yogurt. Recommendations # Blood work today for [...] 10:30 AM EST Office [place] [address] Benny Solano MD [facility] [place] [address] documented as of this encounter Procedures Procedure Name Priority Date/Time Associated Diagnosis Comments GLIADIN ANTIBODIES Routine 08/26/2015 11 :09 AM EST Celiac disease/sprue Chronic constipation TISSUE TRANSGLUTAMINASE, IGA Routine 08/26/2015 11:09 AM EST Celiac disease/sprue Chronic constipation SEDIMENTATION RATE Routine 08/26/2015 11 :09 AM EST Celiac disease/sprue Chronic constipation CRP, CARDIAC RISK (HS CRP) Routine 08/26/2015 11:09 AM EST Celiac disease/sprue Chronic constipation documented in this encounter Results * High Sensitivity CRP (08/26/2015 11:09 AM EST) C-Reactive Protein High Sensitivity 1.9 mg/L [facility] Comment: Interpretations: 1) For accurate cardiac risk assessment, the average of 2 values >2 weeks apart should be obtained (ref 1&2). A value >10 mg/L indicates an inflammatory condition, concentrations >10 mg/L should not be used for cardiac risk assessment. ?<1.0 mg/L: low risk ?1.0 - 3.0 mg/L: moderate risk ?>3.0 mg/L: high risk groups for future cardiovascular events 2) The general reference range of apparently healthy individuals using this test is <5.0 mg/L (derived from the test package insert) References: 1. Grover VASQUEZ et. al. ??AHA/CDC Scientific Statement: Markers of Inflammation and Cardiovascular Disease. ??Circulation 2003; 107:499-511 2. Raquel PM. ??Clinical applications of C-reactive protein for cardiovascular disease detection and prevention. ??Circulation 2003; 107:363-369 Blood specimen (specimen) 08/26/2015 11:09 AM EST 08/26/2015 11:19 AM EST Narrative Resulting Agency Comment Spec In Lab Luca Cain MD CHEMISTRY ORDERAB LES [facility] * (ABNORMAL) Sedimentation rate (08/26/2015 11:09 AM EST) Sedimentation Rate Automated 24(H) 0 - 20 mm/hr [facility] Blood specimen (specimen) 08/26/2015 11:09 AM EST 08/26/2015 11:19 AM EST Narrative Resulting Agency Comment Spec In Lab Luca Cain MD HEMATOLOGY ORDERA BLES Performing Organization Address City/[facility] Co de Phone Number [facility] * Tissue transglutaminase, IgA (08/26/2015 11:09 AM EST) TTG IgA Ab 0.7 0.1 - 10.0 u/ml [facility] Comment: New methodology as of 01-27-2015 Negative = <7 U/mL Equivocal = 7-10 U/mL Positive = >10 U/mL Blood specimen (specimen) 08/26/2015 11:09 AM EST 08/26/2015 2:14 PM EST Narrative Resulting Agency Comment Spec In Lab Luca Cain MD IMMUNOLOGY ORDERA WANDAS Performing Organization Address City/[facility] Co de Phone Number [facility] * Gliadin (Deamidated) Antibodies (08/26/2015 11:09 AM EST) Gliadin IgG Deamidated (JANUARY) <10.0 <20.0 (Negative) [facility] Comment: Test Performed by: [place] [address] Wood Borer: Natalia Argueta, Ph.D. Gliadin IgA Deamidated (JANUARY) 15.8 <20.0 (Negative) [facility] Comment: Test Performed by: [place] [address] Wood Borer: Natalia Argueta, Ph.D. Blood specimen (specimen) 08/26/2015 11:09 AM EST 08/26/2015 2:51 PM EST Narrative Resulting Agency Comment Spec In Lab Luca Cain MD LAB SEND OUT [facility] documented in this encounter Visit Diagnoses Diagnosis Celiac disease/sprue- Primary Celiac disease Chronic constipation Unspecified constipation documented in this encounter Care Teams Rn Medical Surgical Relationship Specialty Start Date End Date Anthony Samaniego MD [address] [place] [address] PCP - General 07/16/14 documented as of this encounter
--- OUTSIDE RECORDS SUMMARY | 2024-05-17 08:45 | XMS_ITS | Encounter Summary ---
Author Organization [facility] [place] [address] Care Team Providers Care Electric Trucker Name Role Phone Anthony Samaniego MD Primary Care Provider [phone] Encounter Details Date Type Department Care Team (Late st Contact Info) Description 08/22/2018 4:10 PM EST - 08/22/2018 11:59 PM EST Hospital Encounter Radiology [place] [address] Luca Cain MD [facility] [place] [address] Discharge Disposition: Home Social History Tobacco Use [...] 10:30 AM EST Office [place] [address] Benny Solano MD [facility] [place] [address] documented as of this encounter Procedures Procedure Name Priority Date/Time Associated Diagnosis Comments FILM LIBRARY STORAGE ONLY CT ABDOMEN AND PELVIS Routine 08/22/2018 4:10 PM EST documented in this encounter Results * Film Library- Storage Only CT Abdomen & Pelvis (08/22/2018 4:10 PM EST) Narrative [facility] - 08/22/2018 4:10 PM EST This exam is for storage only and is auto-finalizing. Luca Cain MD IMG FILM LIBRARY ORDERABLES [place], [place] documented in this encounter Visit Diagnoses Not on filedocumented in this encounter Care Teams Electric Trucker Relationship Specialty Start Date End Date Anthony Samaniego MD [address] [place] [address] PCP - General 07/16/14 documented as of this encounter
--- OUTSIDE RECORDS SUMMARY | 2024-05-17 08:45 | XMS_ITS | Encounter Summary ---
Author Organization [facility] [place] [address] Care Team Providers Care Product Marketer Name Role Phone Anthony Samaniego MD Primary Care Provider [phone] Encounter Details Date Type Department Care Team (Late st Contact Info) Description 07/23/2014 Orders [place] [phone] Keyon Cantu MD [facility] [place] [address] Social History Tobacco Use Types Packs/Day Years [...] 10:30 AM EST Office [place] [phone] Benny Solano MD [facility] [place] [address] documented as of this encounter Procedures Procedure Name Priority Date/Time Associated Diagnosis Comments FILM LIBRARY STORAGE ONLY CT ABDOMEN AND PELVIS Routine 07/23/2014 9:00 AM EDT documented in this encounter Results * Film Library- Storage only CT abdomen & pelvis (07/23/2014 9:00 AM EDT) Anatomical Region Laterality Modality Abdomen, Pelvis Other 07/23/2014 9:00 AM EDT Narrative 07/30/2014 9:05 AM EST This is a Non-reportable exam Procedure Note JOSE, UNSIGNED REPORT - 07/30/2014 This is a Non-reportable exam Keyon Cantu MD [facility] FILM LIBRARY ORD ERABLES documented in this encounter Visit Diagnoses Not on filedocumented in this encounter Care Teams Product Marketer Relationship Specialty Start Date End Date Anthony Samaniego MD [address] [place] [address] PCP - General 07/16/14 documented as of this encounter
--- OUTSIDE RECORDS SUMMARY | 2024-05-17 08:45 | XMS_ITS | Encounter Summary ---
Author Organization [facility], 1928–[address] [place] [address] Care Team Providers Care Product Introduction Manager Name Role Phone Anthony Samaniego MD Primary Care Provider [phone] Encounter Details Date Type Department Care Team (Late st Contact Info) Description 09/02/2018 Orders [place] [address] Luca Cain MD [facility] [place] [address] Chronic constipation; Pelvic floor dysfunction in female Social History Tobacco Use Types Packs/Day Years [...] 10:30 AM EST Office [place] [address] Benny Solano MD [facility] [place] [address] documented as of this encounter Visit Diagnoses Diagnosis Chronic constipation Unspecified constipation Pelvic floor dysfunction in female documented in this encounter Care Teams Product Introduction Manager Relationship Specialty Start Date End Date Anthony Samaniego MD [address] [place] [address] PCP - General 07/16/14 documented as of this encounter
--- OUTSIDE RECORDS SUMMARY | 2024-05-17 08:45 | XMS_ITS | Encounter Summary ---
[place] [address] Care Team Providers Care Horse Rider Name Role Phone Anthony Samaniego MD Primary Care Provider [phone] Encounter Details Date Type Department Care Team (Late st Contact Info) Description 07/21/2014 Orders [place] [address] Roberta Dempsey, RN Abdominal pain (Primary Dx) Social History Tobacco Use Types Packs/Day Years [...] 10:30 AM EST Office [place] [phone] Benny Solano MD [facility] [place] [address] documented as of this encounter Visit Diagnoses Diagnosis Abdominal pain- Primary Abdominal pain, unspecified site documented in this encounter Care Teams Horse Rider Relationship Specialty Start Date End Date Anthony Samaniego MD [address] [place] [address] PCP - General 07/16/14 documented as of this encounter
--- OUTSIDE RECORDS SUMMARY | 2024-05-17 08:45 | XMS_ITS | Encounter Summary ---
Author Organization [facility] [place] [address] Care Team Providers Care Victim Advocate Name Role Phone Anthony Samaniego MD Primary Care Provider [phone] Reason for Visit * Consultation (Routine) - Closed Specialty Diagnoses / Procedures Referred By Lindsey varghese Referred To Contact Rheumatology Diagnoses dry eye syndrome Anthony Samaniego MD [address] [place] [address] [facility] [address] [place] [id number] Referral ID Status Reason Start Date Expiration Date V isits Requested Visits Authorized [id number] Closed Consult, Test & Treat [facility] 11/09/2017 11/09/2018 1 1 Encounter Details Date Type Department Care Team (Late st Contact Info) Description 11/15/2017 2:00 PM EST Office [place] [address] Patty Hebert MD [facility] [place] [address] Dry eyes; Dry mouth; Polyarthralgia; Abnormal blood chemistry level; Fatigue, unspecified type Social History Tobacco Use Types [...] 36.9 ??C (98.5 ??F) 11/15/2017 1:57 PM ES T Respiratory Rate - - Oxygen Saturation 96% 11/15/2017 1:57 PM EST Inhaled Oxygen Concentration - - Weight 105.2 kg (232 lb) 11/15/2017 1:57 PM EST Height 157.5 cm (5' 2) 11/15/2017 1:57 PM EST Body Mass Index 42.43 11/15/2017 1:57 PM EST documented in this encounter Progress Notes * Patty Hebert MD - 11/15/2017 2:00 PM EST Outpatient Rheumatology Consult CC: Asked by Anthony Samaniego to evaluate this patient with dry eye syndrome. Per patient fatigue, joint pain brought her here. During dental appointment, she was noticed to have dry mouth and a question of Sjogren's syndrome was was brought up. HPI: Ms. 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 Reportedly, here for evaluation of fatigue, arthralgias. Endorses reading about Sjogren's disease. Dry eyes and dry mouth and wonders if she has Sjogren's disease, onset of symptoms years ago ([id number]) gradually worsening since July. Started prescription tooth paste, frequent sips of water,candy. She wants to start sugar free candy, [...] 1 drink per week. Works as chair frame builder for about 40 years. Family Hx: per patient history form. [...] No active synovitis. 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 B/L knee crepitus R>L FROM in all joints. NO lymphadenopathy 09/11 FM tender points. Labs: 10/25/2017 CBC WNL, Elevated MCV, around 96 ESR 31 CMP WNL alkaline phosphatase 120(H) AME screen, RF negative in December 2015 SSA antibody negative in September 2017 anti-mitochondrial antibody negative in 2010. Lyme antibody, urine dipstick negative Impression/recommendations: Ms. 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 await results Due to long duration of action, recommend naproxen 500 mg bid. Hold off on ibuprofen while taking naproxen. Discussed about SE's Recommend artificial tears and continue with conservative measures for dry mouth as above. RTC in 4 weeks. Leaving to [facility] in December for vacation. Addendum: Urine analysis with moderate leukocytes, WBC 6(0-5) CBC with differential, CMP Alkaline phosphatase 107 (40-104) Folic acid vitamin B12 AME ESTRELLA) TRACK DRESSER 0.9 dsDNA CCP Rx C3-C4 SPEP TSH negative/within normal limits Vitamin D 32 (30-100) X-ray of the knees bilateral knee joint osteoarthropathy with medial joint space narrowing and marginal osteophyte formation. Consider vitamin D supplementation Quadriceps strengthening exercises TRACK DRESSER 0.9(<1.0)?? Possible evoluation into MCTD. documented in this encounter Plan of Treatment Upcoming Encounters Date Type Department Care Team (Late st Contact Info) Description 08/02/2024 10:30 AM EST Office Visit Rheumatology at [facility] [place] [address] Benny Solano MD [facility] [place] [address] documented as of this encounter Procedures Procedure Name Priority Date/Time Associated Diagnosis Comments EXTRACTABLE NUCLEAR ANTIGEN (ESTRELLA) AB Routine 11/15/2017 3:24 PM EST Dry eyes Dry mouth Polyarthralgia Fatigue, unspecified type ANTI-CYCLIC CITRULLINATED PEPTIDE AB Routine 11/15/2017 3:24 PM EST Dry eyes Dry mouth Polyarthralgia Fatigue, unspecified type DNA ANTIBODY (DOUBLE-STRANDED) Routine 11/15/2017 3:24 PM EST Dry eyes Dry mouth Polyarthralgia Fatigue, unspecified type HEMOGRAM Routine 11/15/2017 3:24 PM EST Abnormal blood chemistry level DIFFERENTIAL, AUTOMATED Routine 11/15/2017 3:24 PM EST Abnormal blood chemistry level VITAMIN D, 25-HYDROXY Routine 11/15/2017 3:24 PM EST Abnormal blood chemistry level CBC (WITH DIFF) Routine 11/15/2017 3:24 PM EST Abnormal blood chemistry level RHEUMATOID FACTOR, QUANT Routine 11/15/2017 3:24 PM EST Dry eyes Dry mouth Polyarthralgia Fatigue, unspecified type C3 COMPLEMENT Routine 11/15/2017 3:24 PM EST Dry eyes Dry mouth Polyarthralgia Fatigue, unspecified type C4 COMPLEMENT Routine 11/15/2017 3:24 PM EST Dry eyes Dry mouth Polyarthralgia Fatigue, unspecified type AME ANTIBODY SCREEN Routine 11/15/2017 3 :24 PM EST Dry eyes Dry mouth Polyarthralgia Fatigue, unspecified type TSH Routine 11/15/2017 3:24 PM EST Fatigue, unspecified type PROTEIN ELECTROPHORESIS, SERUM Routine 11/15/2017 3:24 PM EST Dry eyes Dry mouth Polyarthralgia Fatigue, unspecified type FOLATE, SERUM Routine 11/15/2017 3:24 PM EST Abnormal blood chemistry level VITAMIN B12 Routine 11/15/2017 3:24 PM EST Abnormal blood chemistry level COMPREHENSIVE METABOLIC PANEL Routine 11/15/2017 3:24 PM EST Abnormal blood chemistry level URINALYSIS MICROSCOPIC EXAM Routine 11/15/2017 3:23 PM EST URINALYSIS WITH REFLEX CULTURE Routine 11/15/2017 3:23 PM EST Dry eyes Dry mouth Polyarthralgia Fatigue, unspecified type URINE CULTURE Routine 11/15/2017 3:23 PM EST documented in this encounter Results * XR [...] PM Patty Hebert MD IMG DX ORDERABLES * Differential, Automated (11/15/2017 3:24 PM EST) Neutrophil % 50.1 % [facility] Neutrophil Absolute 3.06 1.70 - 6.10 x10(3)/[facility] Lymph % 40.2 % [facility] Lymphocytes Abs 2.5 0.9 - 3.2 x10(3)/[facility] Monocyte % 6.5 % [facility] Monocyte Abs 0.4 0.3 - 0.9 x10(3)/[facility] Eos % 2.1 % [facility] Eosinophils Abs 0.1 0.0 - 0.4 x10(3)/[facility] Basophil % 0.8 % [facility] Baso Absolute 0.0 0.0 - 0.1 x10(3)/[facility] Immature Gran % 0.30 % [facility] Comment: Immature granulocytes(IG's)percentage and absolute count will include metamyelocytes, myelocytes, and promyelocytes. Blood smears from CBCs yielding IG's will be scanned manually for concordance. If this scan disagrees with the automated IG or if promyelocytes are noted, a manual differential will be performed. Immature Gran Absolute 0.02 0.00 - 0.04 x10(3)/[facility] Blood specimen (specimen) 11/15/2017 3:24 PM EST 11/15/2017 3:29 PM EST Narrative Resulting Agency Comment Spec In Lab Patty Hebert MD HEMATOLOGY ORDERABLE S Performing Organization Address City/State/[facility] Co de Phone Number [facility] [place] [address] * (ABNORMAL) Hemogram (11/15/2017 3:24 PM EST) White Blood Cell 6.1 4.0 - 9.5 x10(3)/mc L [facility] Red Blood Cell 3.97(L) 4.00 - 5.21 x10(6)/mc L [facility] Hemoglobin 12.7 11.7 - 15.5 gm/dL [facility] Hematocrit 37.5 35.7 - 45.8 % [facility] Mean Cell Volume 94.5(H) 82.6 - 94.4 fL [facility] Mean Cell Hemoglobin 32.0 27.1 - 32.0 pg [facility] Mean Cell Hemoglobin Concentration 33.9 31.7 - 35.0 gm/dL [facility] Platelet 270 145 - 357 x10(3)/mc L [facility] RDW Standard Deviation 46.8(H) 37.0 - 46.0 fL [facility] RDW coefficient of variation 13.4 11.5 - 14.1 % [facility] Mean Platelet Volume 10.5 7.6 - 12.9 fL [facility] NRBC% auto 0.0 % [facility] NRBC Absolute 0.000 0.000 - 0.000 x10(3)/mc L [facility] Blood specimen (specimen) 11/15/2017 3:24 PM EST 11/15/2017 3:29 PM EST Narrative Resulting Agency Comment Spec In Lab Patty Hebert MD HEMATOLOGY ORDERABLE S [facility] [place] [address] * TSH (11/15/2017 3:24 PM EST) Thyroid Stimulating Hormone 3.33 0.27 - 4.20 mlU/ML [facility] Blood specimen (specimen) 11/15/2017 3:24 PM EST 11/15/2017 3:29 PM EST Narrative Resulting Agency Comment Spec In Lab Patty Hebert MD CHEMISTRY ORDERABLES Performing Organization Address City/[facility]/ZIP Co de Phone Number [facility] [place] [address] * Protein Electrophoresis, serum (11/15/2017 3:24 PM EST) Pathologist [facility] Total Prot Electrophoresis 7.2 6.1 - 8.0 gm/dL [facility] Albumin Electrophoresis 4.61 3.60 - 6.00 gm/dL [facility] Alpha 1 Globulin 0.16 0.10 - 0.30 gm/dL [facility] Alpha 2 Globulin 0.76 0.40 - 0.90 gm/dL [facility] Beta Globulin 0.67 0.50 - 1.00 gm/dL [facility] Gamma Globulin 1.00 0.50 - 1.30 gm/dL [facility] M1 Band None Detected [facility] Blood specimen (specimen) 11/15/2017 3:24 PM EST 11/15/2017 3:29 PM EST Narrative Resulting Agency Comment Spec In Lab Patty Hebert MD CHEMISTRY ORDERABLES [facility] [place] [address] * C4 Complement (11/15/2017 3:24 PM EST) Pathologist [facility] Complement C4 23 10 - 40 mg/dL [facility] Blood specimen (specimen) 11/15/2017 3:24 PM EST 11/15/2017 3:29 PM EST Narrative Resulting Agency Comment Spec In Lab Patty Hebert MD CHEMISTRY ORDERABLES Performing Organization Address [facility] Co de Phone Number [facility] [place] [address] * C3 Complement (11/15/2017 3:24 PM EST) Complement C3 125 90 - 180 mg/dL [facility] Blood specimen (specimen) 11/15/2017 3:24 PM EST 11/15/2017 3:29 PM EST Narrative Resulting Agency Comment Spec In Lab Patty Hebert MD CHEMISTRY ORDERABLES Performing Organization Address [facility] Co de Phone Number [facility] [place] [address] * Rheumatoid factor, quant (11/15/2017 3:24 PM EST) Rheumatoid Factor <10 <=14 IU/mL [facility] Blood specimen (specimen) 11/15/2017 3:24 PM EST 11/15/2017 3:29 PM EST Narrative Resulting Agency Comment Spec In Lab Patty Hebert MD CHEMISTRY ORDERABLES Performing Organization Address [facility] Co de Phone Number [facility] [place] [address] * Cyclic Citrullinated Peptide (11/15/2017 3:24 PM EST) Cyclic Citrulline Peptide <0.5 <=4.9 unit/mL [facility] Comment: An updated CCP assay reagent was implemented 01/05/17. Please note the modified reference interval. Blood specimen (specimen) 11/15/2017 3:24 PM EST 11/15/2017 3:29 PM EST Narrative Resulting Agency Comment Spec In Lab Patty Hebert MD CHEMISTRY ORDERABLES Performing Organization Address City/[facility]/ZIP Co de Phone Number [facility] [place] [address] * DNA Antibody (Double-Stranded) (11/15/2017 3:24 PM EST) DNA Ab (DS) Neg Neg [facility] Blood specimen (specimen) 11/15/2017 3:24 PM EST 11/16/2017 7:54 AM EST Narrative Resulting Agency Comment Spec In Lab Patty Hebert MD LAB SEND OUT ORDERAB LES Performing Organization Address [facility] Co de Phone Number [facility] [place] [address] * Extractable Nuclear Antigen (ESTRELLA) Ab (11/15/2017 3:24 PM EST) ESTRELLA Ab Test ?Result ?Flag ??Unit ??RefValue Ab to Extractable Nuclear Ag Eval,S ??SS-A/Ro Ab, IgG, S ?<0.2 ?U ? <1.0 (Negative) ??SS-B/La Ab, IgG, S ?<0.2 ?U ? <1.0 (Negative) ??Sm Ab, IgG, S ? <0.2 ?U ? <1.0 (Negative) ??TRACK DRESSER Ab, IgG, S ?0.9 ? U ? <1.0 (Negative) ??Scl 70 Ab, IgG, S ? <0.2 ?U ? <1.0 (Negative) ??Gale 1 Ab, IgG, S ? <0.2 ?U ? <1.0 (Negative) ?Test Performed by: ?[facility] ?[id number] [place] [address] LABORATORY Blood specimen (specimen) 11/15/2017 3:24 PM EST 11/16/2017 8:47 AM EST Narrative Resulting Agency Comment Spec In Lab Patty Hebert MD LAB SEND OUT ORDERAB LES Performing Organization Address [facility] Co de Phone Number [facility] [place] [address] * AME (11/15/2017 3:24 PM EST) AME Neg Neg [facility] Blood specimen (specimen) 11/15/2017 3:24 PM EST 11/16/2017 8:07 AM EST Narrative Resulting Agency Comment Spec In Lab Patty Hebert MD LAB SEND OUT ORDERAB LES Performing Organization Address [facility] Co de Phone Number [facility] [place] [address] * Vitamin B12 (11/15/2017 3:24 PM EST) Vitamin B12 513 232 - 1,245 pg/mL [facility] Comment: Please note: Effective 08/23/2017, the reference interval and the lower limit of detection for Vitamin B12 have been updated due to a new reagent formulation. Blood specimen (specimen) 11/15/2017 3:24 PM EST 11/15/2017 3:29 PM EST Narrative Resulting Agency Comment Spec In Lab Patty Hebert MD CHEMISTRY ORDERABLES Performing Organization Address City/[facility]/ZIP Co de Phone Number [facility] [place] [address] * Folate, serum (11/15/2017 3:24 PM EST) Folate 16.0 4.8 - 24.2 ng/mL [facility] Blood specimen (specimen) 11/15/2017 3:24 PM EST 11/15/2017 3:29 PM EST Narrative Resulting Agency Comment Spec In Lab Patty Hebert MD CHEMISTRY ORDERABLES Performing Organization Address City/[facility]/ZIP Co de Phone Number [facility] [place] [address] * Vitamin D, 25-Hydroxy (11/15/2017 3:24 PM EST) Vitamin D Total 25 OH 32 30 - 100 ng/mL [facility] Comment: Deficient <10 ng/mL Insufficient 10 to 29 ng/mL Sufficient 30 to 100 ng/mL Potential Intoxication >100 ng/mL According to the [place] National Osteoporosis Foundation, Vitamin D concentrations >30 ng/mL are sufficient to protect bone health. ??The National Kidney Foundation has similarly stated that patients with Vitamin D concentrations <30ng/mL should be considered to be insufficient or deficient. http://InEdge.PaperV/nkf-guidelines http://InEdge.PaperV/nejm-VitD The [employer] iSYS Vitamin D Immunoassay detects both 25-OH Vitamin D2 and 25-OH Vitamin D3, but only a total Vitamin D concentration is reported. Blood specimen (specimen) 11/15/2017 3:24 PM EST 11/16/2017 7:54 AM EST Narrative Resulting Agency Comment Spec In Lab Patty Hebert MD CHEMISTRY ORDERABLES [facility] [place] [address] * (ABNORMAL) Comprehensive metabolic panel (non-fasting) (11/15/2017 3:24 PM EST) Glucose 94 65 - 199 mg/dL [facility] Comment:Diabetes: >=200 mg/d L plus symptoms Blood Urea Nitrogen 14 8 - 18 mg/dL [facility] Creatinine 0.92 0.70 - 1.20 mg/dL [facility] Sodium 142 135 - 145 mmol/L [facility] Potassium 4.0 3.5 - 5.0 mmol/L [facility] Comment: Please note: ??Patients with WBC >100,000 may have falsely elevated Potassium levels. ??For accurate Potassium quantification in these patients send serum separator tube (gold top) for subsequent determinations. ??Contact the Clinical Chemistry Laboratory if there are any questions. Chloride 106 98 - 107 mmol/L [facility] Carbon Dioxide 24 22 - 31 mmol/L [facility] Anion Gap 12 5 - 15 mmol/L [facility] Calcium 9.0 8.5 - 10.5 mg/dL [facility] Protein, Total 7.5 6.1 - 8.0 gm/dL [facility] Albumin 4.0 3.2 - 5.2 gm/dL [facility] Aspartate Aminotransferase 18 0 - 30 unit/L [facility] Alanine Aminotransferase 16 0 - 30 unit/L [facility] Alkaline Phosphatase 107(H) 40 - 104 unit/L [facility] Bilirubin, Total 0.2 0.2 - 1.3 mg/dL [facility] Est Glomerular Filtration Rate >60 >=60 [facility] Comment: The reported eGFR should be multiplied by 1.2 for patients. The MDRD is not an appropriate measure of renal function for patients with body mass extremes or in patients with acute kidney failure. http://InEdge.PaperV/DHnkdep http://OpinionLab/DHMCnkf Blood specimen (specimen) 11/15/2017 3:24 PM EST 11/15/2017 3:29 PM EST Narrative Resulting Agency Comment Spec In Lab Patty Hebert MD CHEMISTRY ORDERABLES Performing Organization Address [facility] de Phone Number [facility] [place] [address] * (ABNORMAL) Urine culture (11/15/2017 3:23 PM EST) Urine Culture 10,000-49,000 cfu/ml mixed mucosal stephan Note: Culture shows multiple bacterial species suggesting mucosal contamination. If symptoms continue to indicate urinary tract infection, submit a new specimen. (A) [facility] Urine specimen (specimen) 11/15/2017 3:23 PM EST 11/15/2017 4:08 PM EST Narrative Resulting Agency Comment Spec In Lab Patty Hebert MD MICROBIOLOGY - GENER AL ORDERABLES Performing Organization Address [facility] de Phone Number [facility] [place] [address] * (ABNORMAL) Urinalysis Microscopic Exam (11/15/2017 3:23 PM EST) RBC, Urine 3 0 - 4 /HPF [facility] WBC, Urine 6(H) 0 - 5 /HPF [facility] Squamous Epithelial Cells Raw Data, Urine 1 <=4 /HPF [facility] Urine specimen (specimen) 11/15/2017 3:23 PM EST 11/15/2017 3:28 PM EST Narrative Resulting Agency Comment Spec In Lab Patty Hebert MD URINE ORDERABLES Performing Organization Address [facility]/ZIP Co de Phone Number [facility] [place] [address] * (ABNORMAL) Urinalysis with reflex Culture (11/15/2017 3:23 PM EST) Glucose, Urine Dipstick Negative Negative mg/dL [facility] Protein, Urine Dipstick Negative Negative mg/dL [facility] Bilirubin, Urine Dipstick Negative Negative mg/dL [facility] Comment: Clinical correlation required for positive Urine Bilirubin results as false positive may occur with some drugs and drug related products. If a false positive is suspected a serum total bilirubin should be considered if clinically indicated. Urobilinogen, Urine Dipstick Normal Normal mg/dL [facility] pH, Urn (dipstick) 6.0 5.0 - 8.0 [facility] Blood, Urine Dipstick Negative Negative mg/dL [facility] Ketone, Urine Dipstick Negative Negative mg/dL [facility] Nitrite, Urine Dipstick Negative Negative [facility] Leukocytes, Urine Dipstick Moderate(A) Negative [facility] Appearance, Urine Dipstick Clear Clear [facility] Specific [place] Urine Automated 1.019 1.002 - 1.030 [facility] Color, Urine Dipstick Yellow Yellow [facility] Reflex to Culture Yes [facility] Urine specimen (specimen) 11/15/2017 3:23 PM EST 11/15/2017 3:28 PM EST Narrative Resulting Agency Comment Spec In Lab Patty Hebert MD URINE ORDERABLES Performing Organization Address [facility]/ZIP Co de Phone Number [facility] [place] [address] documented in this encounter Visit Diagnoses Diagnosis Dry eyes Tear film insufficiency, unspecified Dry mouth Disturbance of salivary secretion Polyarthralgia Pain in joint, multiple sites Abnormal blood chemistry level Other abnormal blood chemistry Fatigue, unspecified type Polyarthralgia Pain in joint, multiple sites Fatigue, unspecified type documented in this encounter Care Teams Victim Advocate Relationship Specialty Start Date End Date Anthony Samaniego MD [address] [place] [address] PCP - General 07/16/14 documented as of this encounter
--- OUTSIDE RECORDS SUMMARY | 2024-05-17 08:45 | XMS_ITS | Encounter Summary ---
[place] [address] Care Team Providers Care Dowel Inspector Name Role Phone Panfilo, Vasyl DAVIES Primary Care Provider [phone] Encounter Details Date Type Department Care Team (Latest Contact Info) Description 02/06/2013 9:29 AM EDT - 02/06/2013 12:50 PM EDT Hospital Encounter [place] [address] [facility] [place] [address] Discharge Disposition: Home Social History Tobacco Use [...] you need to be checked. Monday-Monday Clinic [phone] 8a-5p Same Day Endo [phone] 7a-8p Otherwise contact [phone] and ask to speak to the hand candle molder java solutions architect Follow up care is a castellano part [...] 10:30 AM EST Office [place] [address] [facility] [place] [address] documented as of this encounter Procedures Procedure [...] 1:44 PM EDT) Surgical Pathology Report ? [facility] ? Provider: ?? KEYON TELLEZ ?Pt. Name: ?? AI MORRISON ? Acc #: ?[id number] ?Pt. ? Col Date: ?? 02/06/2013 ? [...] 1:44 PM EDT Keyon Tellez MD PATHOLOGY/CYTOLOGY Joy MALIK Performing Organization Address [facility]/ZIP Co de Phone Number GERARDO MORILLO * Specimen to Pathology (surgical or derm) (02/06/2013 11:52 AM EDT) AP Specimen 02/06/2013 11:5 2 AM EDT 02/06/2013 11:52 AM EDT Narrative [facility] - 02/06/2013 11:52 AM EDT Specimen requisition ordered. ??Separate Pathology report to follow Keyon Tellez MD PATHOLOGY/CYTOLOGY Joy MALIK Performing Organization Address [facility]/State/ZIP Co de Phone Number [facility] * COLONOSCOPY (02/06/2013 7:50 AM EDT) COLONOSCOPY [facility] Endoscopy Patient Name: Ai Morrison ? Procedure Date: 02/06/2013 7:50 AM ? Date of : 1960 ? Age: 53 ? Order #: [id number] ? Procedure: ? Colonoscopy Indications: ? FH of Colon Cancer - 1st degree ? relative, constipation Providers: ? Keyon Tellez MD, Soraya Richards ? Ashlee, RN, Yesi Regan, Beverage Sales Consultant Referring : ?Vasyl Whittaker, DO Medicines: ? [...] (02/06/2013 7:48 AM EDT) UPPER GI ENDOSCOPY [facility] Endoscopy Patient Name: Ai Morrison ? Procedure Date: 02/06/2013 7:48 AM ? N: [id number] ? Date of : 1960 ? Age: 53 ? Order #: [id number] ? Procedure: ? Upper GI endoscopy Indications: ? h/o sprue assess for response to diet Providers: ? Keyon Tellez MD, Soraya Richards ? Ashlee, DANIEL, Yesi Regan, Beverage Sales Consultant Referring MD: ?Vasyl Whittaker, DO Medicines: ? [...] (BENADRYL) injection (CANCELED) ONCE PRN, Starting on 02/06/13 at 1115, Until Mon02/06/13 at 1857, Itching, Intra-Operative (Intra-Procedure), Routine 1115 (Given - Provid er: Soraya Rosado RN) [...] RN)1144 (Given - Provider: Soraya Rosado RN) documented in this encounter Care Teams Dowel Inspector Relationship Specialty Start Date End Date Vasyl Whittaker DO [address] [place] [address] PCP - General 08/17/10 07/15/14 documented as of this encounter
--- OUTSIDE RECORDS SUMMARY | 2024-05-17 08:45 | XMS_ITS | Encounter Summary ---
[place] [address] Care Team Providers Care Punch Press Setter Name Role Phone Anthony Samaniego MD Primary Care Provider [phone] Reason for Visit * Reason Comments Medication Refill Encounter Details Date Type Department Care Team (Late Contact Info) Description 09/22/2015 [place] [phone] Luca Cain MD [facility] [place] [address] Social History Tobacco Use Types Packs/Day Years [...] 10:30 AM EST [place] [phone] Benny Solano MD [facility] [place] [address] documented as of this encounter Visit Diagnoses Not on filedocumented in this encounter Care Teams Punch Press Setter Relationship Specialty Start Date End Date Anthony Samaniego MD [address] [place] [address] PCP - General 07/16/14 documented as of this encounter
--- OUTSIDE RECORDS SUMMARY | 2024-05-17 08:45 | XMS_ITS | Encounter Summary ---
[place] [address] Care Team Providers Care Final Inspector And Tester Name Role Phone PanfiloVasyl roe Primary Care Provider Encounter Details Date Type Department Care Team (Late st Contact Info) Description 06/21/2010 [place] [phone] Bay Rodriguez MD [facility] [place] [address] Social History Tobacco Use Types Packs/Day Years [...] 10:30 AM EST Office [place] [phone] Benny Solano MD [facility] [place] [address] documented as of this encounter Procedures Procedure Name Priority Date/Time Associated Diagnosis Comments CORTISOL, SALIVA Routine 06/21/2010 12:0 5 AM EDT documented in this encounter Results * CORTISOL, SALIVA (06/21/2010 12:05 AM EDT) [place] Saliva (JANUARY) <50 ng/dL CERNER MILLENNIUM Comment: -- REFERENCE VALUE -- 7:00-9:00 am: 100-750 3:00-5:00 pm: <401 11:00 pm-Midnight: <100 Test Performed by: [facility] [employer] [place] [address] Block Saw Operator: Natalia Berrios, Ph.D. [place] Saliva Am (JANUARY) NOT APPLICABLE CERNER MILLENNIUM [place] Saliva Pm (JANUARY) NOT APPLICABLE CERNER MILLENNIUM [place] Saliva Midnight (JANUARY) NOT APPLICABLE CERNER MILLENNIUM Specimen of unknown material (specimen) 06/21/2010 12:05 AM EDT 07/01/2010 12:22 PM EDT Bay Rodriguez MD LAB SEND OUT ORDERAB LES GERARDO MORILLO documented in this encounter Visit Diagnoses Not on filedocumented in this encounter Care Teams Final Inspector And Tester Relationship Specialty Start Date End Date Vasyl Whittaker DO [address] [place] [address] PCP - General 08/17/10 07/15/14 documented as of this encounter
--- OUTSIDE RECORDS SUMMARY | 2024-05-17 08:45 | XMS_ITS | Encounter Summary ---
[place] [address] Care Team Providers Care Culvert Installer Name Role Phone Anthony Samaniego MD Primary Care Provider [phone] Reason for Visit * Reason Comments Follow-up Encounter Details Date Type Department Care Team (Late st Contact Info) Description 07/16/2014 1:00 PM EDT [place] [address] Keyon Cantu MD [facility] [place] [address] Abdominal pain (Primary Dx) Discharge Disposition: Home Social History [...] Progress Notes * Keyon Cantu MD - 07/16/2014 12:57 PM [...] no Stones. 6. RLQ pain CT scan [facility], normal Ultrasound, ovarian cyst stable MRE 06/2013 Normal 7. CRC mother, last colo 2006 8. [place] 02/06/13 Normal, EGD Normal, duodenal bx normal [...] 10:30 AM EST Office [place] [address] Benny Solano MD [facility] [place] [address] documented as of this encounter Visit Diagnoses Diagnosis Abdominal pain- Primary Abdominal pain, unspecified site documented in this encounter Care Teams Culvert Installer Relationship Specialty Start Date End Date Anthony Samaniego MD [address] [place] [address] PCP - General 07/16/14 documented as of this encounter
--- OUTSIDE RECORDS SUMMARY | 2024-05-17 08:45 | XMS_ITS | Encounter Summary ---
[place] [address] Care Team Providers Care Receivables Specialist Name Role Phone Anthony Samaniego MD Primary Care Provider [phone] Encounter Details Date Type Department Care Team (Late st Contact Info) Description 07/17/2014 Telephone [place] [phone] Christina Negro Social History Tobacco Use Types Packs/Day Years [...] encounter Miscellaneous Notes * Telephone Encounter - Christina Ryan - 07/17/2014 3:[address] A/P order by Keyon Cantu faxed to [facility]: [phone] with pre-cert: [id number], expires -. Pt connected to [facility] radiology scheduling. documented in this encounter Plan of Treatment Upcoming Encounters Date Type Department Care Team (Late st Contact Info) Description 08/02/2024 10:30 AM EST Office Visit [place] [address] Benny Solano MD [facility] [place] [address] documented as of this encounter Visit Diagnoses Not on filedocumented in this encounter Care Teams Receivables Specialist Relationship Specialty Start Date End Date Anthony Samaniego MD [address] [place] [address] PCP - General 07/16/14 documented as of this encounter
--- OUTSIDE RECORDS SUMMARY | 2024-05-17 08:46 | XMS_ITS | Encounter Summary ---
Author Organization [facility] Address [address] [place] [address] Care Team Providers Care Documentation Improvement Specialist Name Role Phone Vasyl Whittaker DO Primary Care Provider [phone]- [phone] Encounter Details Date Type Department Care Team (Late st Contact Info) Description 08/24/2016 Results Only [facility] [phone] Ana Maria Grider MD [address] [place] [phone] Social History Tobacco Use Types Packs/Day Years Used Date Smoking Tobacco: Never Assessed Sex and Gender Information Value Date Recorded Sex Assigned at Not on file Gender Identity Not on file Sexual Orientation Not on file documented as of this encounter Plan of Treatment Not on file documented as of this encounter Procedures Procedure Name Priority Date/Time Associated Diagnosis Comments PAP TEST- RESULT ONLY Routine 08/24/2016 0:00 EST documented in this encounter Results * PAP TEST- RESULT ONLY (08/24/2016 0:00 EST) Pathology Report: CYTOPATHOLOGY REPORT Reports generated via electronic interface contain original data; however they are lacking the format of the original report. Caution should be taken when reading/interpreti ng unformatted reports. Name: ? SHELTON CATES ? Accession #: ? [id number] ? : ? 1960 (Age: 56) ??F ?Collect Date: ? 08/24/2016 ? Location: ? [facility] ? Receive Date: ? 08/25/2016 ? Provider: ANA MARIA GRIDER MD Copy to: ? Final Report SPECIMEN ADEQUACY ? Satisfactory for Evaluation - transformation zone component absent GENERAL CATEGORIZATION ? Negative for Intraepithelial Lesion or Malignancy ?? Menstrual/Pregnanc y Status: ??Post Menopausal Hormonal/Contracep tive status: None Treatment History: Yes: Oophorectomy 2013 Specimen/Source: ??Pap Test, Cervix, ThinPrep Imaging System with manual evaluation Document reviewed and electronically signed by: ? JOSE JUAN Dominguez(ASCP) ? Report ??Date: 08/30/2016 10:39 HPV with Pap Test ? Date Ordered: ? 08/30/2016 ? Status: ?? Signed Out ?Date Complete: ? 08/31/2016 ? By: ??System Interface ? Date Reported: ? 08/31/2016 ? Interpretation RESULT: Negative for HPV. No E6 or E7 mRNA is detected from HPV types 16,18,31,33,35, 39,45,51,52,56,58, 59,66, and 68 by fly worker mediated amplification. Comments Document reviewed and electronically signed by: ? System Interface ? Report date: 08/31/2016 By the signature above, the attending physician certifies that he/she has personally conducted a gross and/or microscopic examination of the described specimens and rendered or confirmed the above diagnosis. End of Report [facility] 08/24/2016 08/25/2016 Ana Maria Grider MD PATHOLOGY ORDER CELESTE [facility] [address] [place] [address] documented in this encounter Visit Diagnoses Not on filedocumented in this encounter Care Teams Documentation Improvement Specialist Relationship Specialty Start Date End Date Vasyl Whittaker DO [address] [place] [address] PCP - General 12/23/10 documented as of this encounter
--- OUTSIDE RECORDS SUMMARY | 2024-05-17 08:46 | XMS_ITS | Encounter Summary ---
Author Organization [facility] Address [address] [place] [address] Care Team Providers Care Environmental Emergencies Assistant Name Role Phone Vasyl Wihttaker DO Primary Care Provider [phone]- [phone] Encounter Details Date Type Department Care Team (Late st Contact Info) Description 01/12/2023 Lab Requisition [facility] Pathology & Laboratory Medicine - [facility] [address] [place] [address] Margarito Moore, [address] [place] [phone] Neoplasm of unspecified behavior of bone, soft tissue, and skin Social History Tobacco Use Types Packs/Day Years [...] Priority Date/Time Associated Diagnosis Comments SURGICAL PATHOLOGY Today 01/11/2023 8: 20 EDT Neoplasm of unspecified behavior of bone, soft tissue, and skin documented in this encounter Results * SURGICAL PATHOLOGY (01/11/2023 8:20 EDT) Note to Patient The following pathology results have been interpreted by your pathologist and may be available to you before your health provider has had the opportunity to review them. Please allow time for your provider to receive these results and explore management options, if applicable. 01/16/2023 15:29 [facility] Final Diagnosis A. SKIN OF TRICEPS, LEFT, PUNCH BIOPSY: - Malignant melanoma, superficially invasive (superficial spreading type). See comment. - Melanoma thickness: 0.2 mm. - Ulceration: Not identified. - Melanoma present at peripheral tissue edges. 01/16/2023 15:29 [facility] Diagnosis Comment The biopsy shows features of malignant melanoma with a focal area of superficial dermal invasion. Melanoma extends to the peripheral edges of the punch biopsy specimen. Results called and faxed to the office of VICKEY Queen, on 01/16/2023. 01/16/2023 15:29 [facility] Attestation By the signature below, the attending physician certifies that they have 1) personally conducted a gross and/or microscopic examination of the described specimen(s), and/or personally interpreted the results of laboratory testing of the described specimen(s), and 2) personally rendered or confirmed the above diagnosis. 01/16/2023 15:29 [facility] at 1529 Synoptic MELANOMA OF THE SKIN: Biopsy MELANOMA OF THE SKIN: BIOPSY - A 8th Edition - Protocol posted: 12/15/2021 SPECIMEN ?? Procedure: ?Biopsy, punch ?? Specimen Laterality: ?Left TUMOR ?? Tumor Site: ?Skin of upper limb and shoulder: Triceps ?? Histologic Type: ?Superficial spreading melanoma (low-cumulative sun damage (CSD) melanoma) ?? Maximum Tumor (Breslow) Thickness (Millimeters): ?0.2 mm ?? Ulceration: ?Not identified ?? Anatomic (Kale) Level: ?II (melanoma present in but does not fill and expand papillary dermis) ?? Mitotic Rate: ?None identified ?? Microsatellite(s): ?Not identified ?? Lymphovascular Invasion: ?Not identified ?? Neurotropism: ?Not identified ?? Tumor-Infiltrating Lymphocytes: ?Not identified ?? Tumor Regression: ?Not identified ?? MARGINS: ? Margin Status for Invasive Melanoma: ?Invasive melanoma present at margin ? Margin(s) Involved by Invasive Melanoma: ?Peripheral ? Margin Status for Melanoma in situ: ?Melanoma in situ present at margin ? Margin(s) Involved by Melanoma in Situ: ?Peripheral ?? PATHOLOGIC STAGE CLASSIFICATION (pTNM, AJCC 8th Edition): ? pT Category: ?pT1a 01/16/2023 15:29 [facility] Microscopic Description Sections consist of a punch biopsy of skin to the deep reticular dermis. Within the epidermis, there is a melanocytic proliferation. The proliferation consists primarily of individual melanocytes with a few small 2-3 cell clusters. The individual melanocytes are crowded along the junction and show prominent upward migration throughout the epidermis. Melanocytes are enlarged and have irregular, dark nuclei. Near the edge of the biopsy, there rare nests of similar melanocytes within the dermis. No dermal mitotic figures are noted. There is mild fibroplasia and clusters of melanophages. Sections prepared for SOX-10 ALK PHOS (SP267, [employer]) better illustrate the proliferation and show the aforementioned features. NOTE: One or more of the reagents used in immunoperoxidase testing in this case may not have been cleared or approved by the U.S. Food and Drug Administration (FDA). The FDA has determined that such clearance or approval is not necessary. These tests are used for clinical purposes. They should not be regarded as investigational or for research. These reagents' performance characteristics have been determined by [facility] and/or by the referring laboratory. The positive and negative controls worked appropriately. If immunoperoxidase staining has been performed on alcohol fixed cytology specimens, which has not been fully validated, the assays should be interpreted with caution and correlated with clinical data. This laboratory is certified under the Clinical Laboratory Improvement Amendments of 1988 (CLIA-88) as qualified to perform high complexity clinical laboratory testing.? 01/16/2023 15:29 [facility] Clinical History Atypical nevus; clinical diagnosis code: D49.2 01/16/2023 15:29 [facility] Gross Description A. Received in formalin labelled with proper patient identification (initials G, K) and left triceps skin is a dark brown skin punch biopsy measuring 0.3 cm in diameter and excised to a depth of 0.1 cm. Submitted intact in A1. VICKEY UPLLIAM(ASCP) 01/12/2023 19:05 01/16/2023 15:[address] [facility] Performing Lab [facility] 15:[address] [facility] Scanned Images 01/16/2023 15:[address] [facility] Tissue TISSUE SPECIMEN FROM SKIN / Unknown 01/11/2023 8:20 EDT 01/12/2023 17:34 EDT Margarito HURD PATHOLOGY ORDERABL ES [facility] [address] [place] [address] documented in this encounter Visit Diagnoses Diagnosis Neoplasm of unspecified behavior of bone, soft tissue, and skin documented in this encounter Care Teams Environmental Emergencies Assistant Relationship Specialty Start Date End Date Vasyl Whittaker DO [address] [place] [address] PCP - General 12/23/10 documented as of this encounter
--- OUTSIDE RECORDS SUMMARY | 2024-05-17 08:46 | XMS_ITS | Encounter Summary ---
Author Organization [facility] Address [address] [place] [address] Care Team Providers Care Bereavement Counselor Name Role Phone Vasyl Whittaker DO Primary Care Provider [phone]- [phone] Encounter Details Date Type Department Care Team (Latest Contact Info) Description 06/18/2018 15:54 EDT - 06/18/2018 23:59 EDT Hospital Encounter [address] [address] Unknown, Provider, Discharge Disposition: Home or Self Care Social History Tobacco Use Types Packs/Day Years Used Date Smoking Tobacco: Never Assessed Sex and Gender Information Value Date Recorded Sex Assigned at Not on file Gender Identity Not on file Sexual Orientation Not on file documented as of this encounter Discharge Disposition Disposition Code Departure Means Destination Home or Self Half-Way documented in this encounter Plan of Treatment Not on file documented as of this encounter Visit Diagnoses Not on filedocumented in this encounter Care Teams Bereavement Counselor Relationship Specialty Start Date End Date Vasyl Whittaker DO [address] [place] [address] PCP - General 12/23/10 documented as of this encounter
--- OUTSIDE RECORDS SUMMARY | 2024-05-17 08:46 | XMS_ITS | Encounter Summary ---
Author Organization [facility] Address [address] [place] [address] Care Team Providers Care Senior Planner Name Role Phone Unavailable Primary Care Provider Unavailabl e Encounter Details Date Type Department Care Team (Late st Contact Info) Description 01/16/2008 Results Only [facility] [address] [place] [address] Marisa Vega MD [address] [place] [address] Social History Tobacco Use Types Packs/Day Years Used Date Smoking Tobacco: Never Assessed Sex and Gender Information Value Date Recorded Sex Assigned at Not on file Gender Identity Not on file Sexual Orientation Not on file documented as of this encounter Plan of Treatment Not on file documented as of this encounter Procedures Procedure Name Priority Date/Time Associated Diagnosis Comments CYTOPATHOLOGY Routine 01/16/2008 0:00 EDT documented in this encounter Results * CYTOPATHOLOGY (01/16/2008 0:00 EDT) Pathology Report: CYTOPATHOLOGY REPORT Reports generated via electronic interface contain original data; however they are lacking the format of the original report. Caution should be taken when reading/interpreti ng unformatted reports. Name: ? HALIE SHELTON ? Accession #: ? [id number] : ? 1960 (Age: 48) ??F ?Collect Date: ? 01/16/2008 Location: ? [facility] ? Receive Date: ? 01/18/2008 Provider: ?MARISA VEGA MD Copy to: ?FRAN FLORES MD ? Specimen/Source: ?ThinPrep Pap Test, Vagina/Cervix/Endo cervix, processed on [employer] ThinPrep Imaging System, with manual evaluation Last Menstrual Period: ? 2 wks Other: ? Additional clinical information: benign pap hx ? SPECIMEN ADEQUACY ? Satisfactory for Evaluation - transformation zone component absent GENERAL CATEGORIZATION ? Negative for Intraepithelial Lesion or Malignancy ? Document reviewed and electronically signed by: ? JARON Saucedo(ASCP) ? Report Date: ??01/22/2008 14:45 End of Report TRAN INIGUEZ 01/16/2008 01/18/2008 Marisa Vega MD PATHOLOGY ORDERABLES [facility] [address] [place] [address] documented in this encounter Visit Diagnoses Not on filedocumented in this encounter
--- OUTSIDE RECORDS SUMMARY | 2024-05-17 08:46 | XMS_ITS | Encounter Summary ---
Author Organization [facility] Address [address] [place] [address] Care Team Providers Care Laboratory Asst Name Role Phone PanfiloVasyl roe Primary Care Provider +1- [phone] Encounter Details Date Type Department Care Team (Late st Contact Info) Description 10/31/2021 Lab Requisition [facility] Pathology & Laboratory Medicine - [facility] [address] [place], [place] [id number] Outr Resulting Lab, Provider Social History Tobacco Use Types Packs/Day Years [...] Procedure Name Priority Date/Time Associated Diagnosis Comments QUANTIFERON MITOGEN (PERFORMABLE) Today 10/29/2021 13:15 EST QUANTIFERON TB2 (PERFORMABLE) Today 10/29/2021 13:15 EST QUANTIFERON TB1 (PERFORMABLE) Today 10/29/2021 13:15 EST QUANTIFERON NIL (PERFORMABLE) Today 10/29/2021 13:15 EST QUANTIFERON INTERPRETATION (PERFORMABLE) Today 10/29/2021 13:15 EST QUANTIFERON TB GOLD PLUS Routine 10/29/2021 13:15 EST documented in this encounter Results * QUANTIFERON INTERPRETATION (PERFORMABLE) (10/29/2021 13:15 EST) [facility] Signature Quantiferon Interpretation Negative Negative 11/01/2021 12:28 EST [facility] Comment:No interferon-gamma response to M. tuberculosis antigens was detected. ??Infection with M. tuberculosis is unlikely. A single negative result does not exclude infection with M. tuberculosis. ??In patients at high risk for M. tuberculosis infection, a second test should be considered. TB1 Ag minus Nil 0.00 IU/ml 11/01/19 12:28 EST [facility] TB2 Ag minus Nil 0.01 IU/mL 11/01/19 12:28 EST [facility] Blood VENOUS BLOOD / Unknown 10/29/2021 13:15 EST 11/01/2021 12:00 EST Narrative [facility] - 11/01/2021 12:28 EST Results were obtained with the [employer] QuantiFERON-TB Gold Plus CLIA. New platform in use 06/02/2021 Provider Outr Resulting Lab IMMUNOLOGY A ND SEROLOGY ORDERABLES Performing Organization Address City/[facility] Co de Phone Number [facility] [address] [place] [address] * QUANTIFERON MITOGEN (PERFORMABLE) (10/29/2021 13:15 EST) Blood VENOUS BLOOD / Unknown 10/29/2021 13:15 EST 10/31/2021 16:59 EST Provider Outr Resulting Lab IMMUNOLOGY A ND SEROLOGY ORDERABLES Performing Organization Address City/[facility]/ZIP Co de Phone Number [facility] [address] [place] [address] * QUANTIFERON TB2 (PERFORMABLE) (10/29/2021 13:15 EST) Blood VENOUS BLOOD / Unknown 10/29/2021 13:15 EST 10/31/2021 16:59 EST Provider Outr Resulting Lab IMMUNOLOGY A ND SEROLOGY ORDERABLES Performing Organization Address [facility] Co de Phone Number [facility] [address] [place] [address] * QUANTIFERON TB1 (PERFORMABLE) (10/29/2021 13:15 EST) Blood VENOUS BLOOD / Unknown 10/29/2021 13:15 EST 10/31/2021 16:59 EST Provider Outr Resulting Lab IMMUNOLOGY A ND SEROLOGY ORDERABLES Performing Organization Address [facility] de Phone Number [facility] [address] [place] [address] * QUANTIFERON NIL (PERFORMABLE) (10/29/2021 13:15 EST) Blood VENOUS BLOOD / Unknown 10/29/2021 13:15 EST 10/31/2021 16:59 EST Provider Outr Resulting Lab IMMUNOLOGY A ND SEROLOGY ORDERABLES Performing Organization Address [facility] Co de Phone Number [facility] [address] [place] [address] documented in this encounter Visit Diagnoses Not on filedocumented in this encounter Additional Health Concerns Infection Onset Date Last Indicated Resolved Time COVID-19 02/16/2022 02/16/2022 03/08/2022 22:1 5 EDT documented as of this encounter Care Teams Laboratory Asst Relationship Specialty Start Date End Date Vasyl Whittaker DO [address] [place] [address] [place] [address] PCP - General 12/23/10 documented as of this encounter
--- OUTSIDE RECORDS SUMMARY | 2024-05-17 08:46 | XMS_ITS | Encounter Summary ---
Author Organization [facility] Address [address] [place] [address] Care Team Providers Care Traveling Repair Accountant Name Role Phone Unknown, Provider Primary Care Provider Encounter Details Date Type Department Care Team (Late st Contact Info) Description 11/17/2010 Results Only [facility] Laboratory Services - [facility] ([facility]) [address] [place], [place] [phone] Marisa Vega MD [address] [place] [address] Social History Tobacco Use Types Packs/Day Years Used Date Smoking Tobacco: Never Assessed Sex and Gender Information Value Date Recorded Sex Assigned at Not on file Gender Identity Not on file Sexual Orientation Not on file documented as of this encounter Plan of Treatment Not on file documented as of this encounter Procedures Procedure Name Priority Date/Time Associated Diagnosis Comments CYTOPATHOLOGY Routine 11/17/2010 0:00 EST documented in this encounter Results * CYTOPATHOLOGY (11/17/2010 0:00 EST) Pathology Report: CYTOPATHOLOGY REPORT ? Reports generated via electronic interface contain original data; ? however they are lacking the format of the original report. ? Caution should be taken when reading/interpreti ng unformatted reports. ? Name: ? SHELTON CATES ? Accession #: ? [id number] ? : ? 1960 (Age: 50) ??F ?Collect Date: ? 11/17/2010 ? Location: ? [facility] ? Receive Date: ? 11/19/2010 ? Provider: ?MARISA VEGA MD ? Copy to: ?ZACK F ENEDINA DO ? Specimen/Source: ?Pap Test, Vagina/Cervix/Endo cervix, ThinPrep Imaging ? System with manual evaluation ? Last Menstrual Period: ? 2 years ? SPECIMEN ADEQUACY ? Satisfactory for Evaluation ? - transformation zone component absent ? GENERAL CATEGORIZATION ? Negative for Intraepithelial Lesion or Malignancy ? Document reviewed and electronically signed by: ? Yesi Luu, CT(ASCP)(IAC) ? Report Date: ??11/24/2010 11:33 ? End of Report ? [facility] 11/17/2010 11/19/2010 Marisa Vega MD PATHOLOGY ORDERABLES [facility] [address] [place] [address] documented in this encounter Visit Diagnoses Not on filedocumented in this encounter Care Teams Traveling Repair Accountant Relationship Specialty Start Date End Date Unknown, Provider, PCP - General 11/18/10 12/22/10 documented as of this encounter
--- OUTSIDE RECORDS SUMMARY | 2024-05-17 08:46 | XMS_ITS | Encounter Summary ---
Author Organization [facility] Address [address] [place] [address] Care Team Providers Care Radiagraph Operator Name Role Phone Vasyl Whittaker Primary Care Provider +1- [phone] Encounter Details Date Type Department Care Team (Late st Contact Info) Description 06/17/2021 Lab Requisition [facility] Pathology & Laboratory Medicine - [facility] [address] [place], [place] [id number] Outr Resulting Lab, Provider Social History Tobacco [...] Procedure Name Priority Date/Time Associated Diagnosis Comments ZZCOVID-19 TEST [facility] PCR Today 06/16/2021 14:00 EDT COVID-19 TESTING Routine 06/16/2021 14:0 0 EDT documented in this encounter Results * COVID-19 TEST [facility] PCR (06/16/2021 14:00 EDT) Swab ENTIRE NASOPHARYNX / Unknown 06/16/2021 14:00 EDT 06/17/2021 15:53 EDT Provider Outr Resulting Lab MICROBIOLOGY - GENERAL ORDERABLES [facility] [address] [place] [address] * COVID-19 TESTING (06/16/2021 14:00 EDT) COVID-19 rt-PCR Result Negative Negative 06/18/2021 10:47 EDT [facility] Comment: This test has not been FDA cleared or approved. This test has been authorized by FDA under an EUA for use by authorized laboratories. This test has been authorized only for detection of nucleic acid from 2019-nCoV, not for any other viruses or pathogens. This test is only authorized for the duration of the declaration that circumstances exist justifying the authorization of emergency use of in vitro diagnostic tests for detection and/or diagnosis of 2019-nCoV under section 564(b)(1) of Act, 21 U.S.C ?? 360bbb-3(b) (1), unless the authorization is terminated or revoked sooner. Negative results do not preclude 2019-nCoV infection and should not be used as the sole basis for treatment or other patient management decisions. Negative results must be combined with clinical observations, patient history, and epidemiological information. Testing was performed using the sanya SARS-CoV-2 assay ([employer] on the Sanya 6800 System Performing Lab Sanya 6800 [facility] 06/18/2021 10:47 EDT [facility] Swab 06/16/2021 14:0 0 EDT 06/17/2021 15:53 EDT Provider Outr Resulting Lab MICROBIOLOGY - GENERAL ORDERABLES [facility] [address] [place] [address] documented in this encounter Visit Diagnoses Not on filedocumented in this encounter Additional Health Concerns Infection Onset Date Last Indicated Resolved Time COVID-19 02/16/2022 02/16/2022 03/08/2022 22:1 5 EDT documented as of this encounter Care Teams Radiagraph Operator Relationship Specialty Start Date End Date Vasyl Whittaker DO [address] [place] [address] PCP - General 12/23/10 documented as of this encounter
--- OUTSIDE RECORDS SUMMARY | 2024-05-17 08:46 | XMS_ITS | Encounter Summary ---
Author Organization [facility] Address [address] [place] [address] Care Team Providers Care Emergency Room Specialist Name Role Phone PanfiloVasyl roe Primary Care Provider +1- [phone] Encounter Details Date Type Department Care Team (Late st Contact Info) Description 10/29/2021 Lab Requisition [facility] Pathology & Laboratory Medicine - [facility] [address] [place], [place] [address] Outr Resulting Lab, Provider Social History Tobacco [...] Procedure Name Priority Date/Time Associated Diagnosis Comments SPEP, INCLUDES QUANTITATION OF MONOCLONAL SPIKE PERFORMABLE Today 10/29/2021 13:15 EST HOLD SST Today 10/29/2021 13:15 EST HOLD SST Today 10/29/2021 13:15 EST SERUM FREE LIGHT CHAINS Today 10/29/2021 13:15 EST RHEUMATOID FACTOR Today 10/29/2021 13: 15 EST C3 COMPLEMENT Today 10/29/2021 13:15 EST C4 COMPLEMENT Today 10/29/2021 13:15 EST SPEP, INCLUDES QUANTITATION OF MONOCLONAL SPIKE Today 10/29/2021 13:15 EST PROTEIN, TOTAL Today 10/29/2021 13:15 EST documented in this encounter Results * HOLD SST (10/29/2021 13:15 EST) Hold Hold 10/29/2021 23:15 EST [facility] Blood VENOUS BLOOD / Unknown 10/29/2021 13:15 EST 10/29/2021 22:02 EST Provider Outr Resulting Lab LAB INFO SER VICE AND SUPPORT & PHONE RESULT Performing Organization Address [facility]/ZIP Co de Phone Number [facility] [address] [place] [address] * HOLD SST (10/29/2021 13:15 EST) Hold Hold 10/29/2021 23:15 EST [facility] Blood VENOUS BLOOD / Unknown 10/29/2021 13:15 EST 10/29/2021 22:02 EST Provider Outr Resulting Lab LAB INFO SER VICE AND SUPPORT & PHONE RESULT Performing Organization Address [facility] Co de Phone Number [facility] [address] [place] [address] * SPEP, INCLUDES QUANTITATION OF MONOCLONAL SPIKE PERFORMABLE (10/29/2021 13:15 EST) Albumin % 62.3 55.8 - 66.1 % 11/01/2021 13:19 EST [facility] Alpha-1 % 3.4 2.9 - 4.9 % 11/01/2021 13:19 [facility] Alpha-2 % 9.1 7.1 - 11.8 % 11/01/2021 13:19 [facility] Beta % 10.8 8.4 - 13.1 % 11/01/2021 13:19 [facility] Gamma % 14.4 11.1 - 18.8 % 11/01/2021 13:19 EST [facility] SPEP Comment No apparent monoclonal protein seen on serum electrophoresis 11/01/2021 13:19 EST [facility] Comment:See scanned/suppleme ntary report. Total Protein 6.8 6.3 - 8.2 g/dL 11/01/2021 13:19 EST [facility] Blood VENOUS BLOOD / Unknown 10/29/2021 13:15 EST 10/29/2021 22:02 EST Provider Outr Resulting Lab CHEMISTRY & BLOOD GAS ORDERABLES Performing Organization Address [facility] Co de Phone Number [facility] [address] [place] [address] * PROTEIN, TOTAL (10/29/2021 13:15 EST) Blood VENOUS BLOOD / Unknown 10/29/2021 13:15 EST 10/29/2021 22:02 EST Provider Outr Resulting Lab CHEMISTRY & BLOOD GAS ORDERABLES Performing Organization Address [facility] Co de Phone Number [facility] [address] [place] [address] * SERUM FREE LIGHT CHAINS (10/29/2021 13:15 EST) Weiser Free Lt Chain 1.53 0.33 - 1.94 mg/dL 11/01/2021 10:42 EST [facility] Lambda Free Lt Chain 1.58 0.57 - 2.63 mg/dL 11/01/2021 10:42 EST [facility] Weiser/Lambda Ratio 0.97 0.26 - 1.65 11/01/2021 10:42 EST [facility] Blood VENOUS BLOOD / Unknown 10/29/2021 13:15 EST 10/29/2021 22:02 EST Provider Outr Resulting Lab CHEMISTRY & BLOOD GAS ORDERABLES Performing Organization Address [facility]/ZIP Co de Phone Number [facility] [address] [place] [address] * RHEUMATOID FACTOR (10/29/2021 13:15 EST) Rheumatoid Factor <8.6 <12.0 IU/mL 10/29/2021 22:35 EST [facility] Blood VENOUS BLOOD / Unknown 10/29/2021 13:15 EST 10/29/2021 22:02 EST Provider Outr Resulting Lab CHEMISTRY & BLOOD GAS ORDERABLES [facility] [address] [place] [address] * C3 COMPLEMENT (10/29/2021 13:15 EST) C3 Complement 116 81 - 157 mg/dL 11/01/2021 10:42 EST [facility] Blood VENOUS BLOOD / Unknown 10/29/2021 13:15 EST 10/29/2021 22:02 EST Provider Outr Resulting Lab CHEMISTRY & BLOOD GAS ORDERABLES Performing Organization Address City/[facility]/ZIP Co de Phone Number [facility] [address] [place] [address] * C4 COMPLEMENT (10/29/2021 13:15 EST) C4 Complement 26 13 - 39 mg/dL 11/01/2021 10:42 EST [facility] Blood VENOUS BLOOD / Unknown 10/29/2021 13:15 EST 10/29/2021 22:02 EST Provider Outr Resulting Lab CHEMISTRY & BLOOD GAS ORDERABLES Performing Organization Address City/[facility]/ZIP Co de Phone Number [facility] [address] [place] [address] documented in this encounter Visit Diagnoses Not on filedocumented in this encounter Additional Health Concerns Infection Onset Date Last Indicated Resolved Time COVID-19 02/16/2022 02/16/2022 03/08/2022 22:1 5 EDT documented as of this encounter Care Teams Emergency Room Specialist Relationship Specialty Start Date End Date Vasyl Whittaker DO [address] [place] [address] PCP - General 12/23/10 documented as of this encounter
--- OUTSIDE RECORDS SUMMARY | 2024-05-17 08:46 | XMS_ITS | Encounter Summary ---
Author Organization [facility] Address [address] [place] [address] Care Team Providers Care Fuel Yard Operator Name Role Phone Unavailable Primary Care Provider Unavailabl e Encounter Details Date Type Department Care Team (Late st Contact Info) Description 04/19/2006 Results Only [facility] [place] [facility] [address] [place] [address] Marisa Cash MD [address] [place] [phone] Social History Tobacco Use Types Packs/Day Years Used Date Smoking Tobacco: Never Assessed Sex and Gender Information Value Date Recorded Sex Assigned at Not on file Gender Identity Not on file Sexual Orientation Not on file documented as of this encounter Plan of Treatment Not on file documented as of this encounter Procedures Procedure Name Priority Date/Time Associated Diagnosis Comments SURGICAL PATHOLOGY Routine 04/19/2006 0:00 EDT documented in this encounter Results * SURGICAL PATHOLOGY (04/19/2006 0:00 EDT) Pathology Report: SURGICAL PATHOLOGY REPORT Reports generated via electronic interface contain original data; however they are lacking the format of the original report. Caution should be taken when reading/interpreti ng unformatted reports. Name: ? HALIE SHELTON ? Accession #: ? [id number] ? : ? 1960 (Age: 46) ??F ? Collect Date: ? 04/19/2006 ? Location: ? [facility] ? Receive Date: ? 04/19/2006 ? Provider: DIMITRIS CASH MD Copy to: MARISA WEBB MD ? [...] and rendered or confirmed the above diagnosis. Specimen(s) Received: ? Bx L transverse colon polyp Clinical History: ? F/H colon Ca; constipation; ??tiny hyperplastic polyp L transverse colon Gross Description: ? Received in Hollande's fixative labeled Leyva and biopsy left transverse colon polyp is a single 0.2 x 0.1 x 0.1 cm polypoid fragment of tissue. The specimen is submitted intact in one cassette. ??(Dr. Soni)/[facility] End of Report [facility] 04/19/2006 04/19/2006 15: 39 EDT Marisa Cash MD PATHOLOGY ORDERABLES [facility] [address] [place] [address] documented in this encounter Visit Diagnoses Not on filedocumented in this encounter
--- OUTSIDE RECORDS SUMMARY | 2024-05-17 08:46 | XMS_ITS | Encounter Summary ---
Author Organization [facility] Address [address] [place] [address] Care Team Providers Care Editorial Assistant Name Role Phone Unknown, Provider Primary Care Provider Encounter Details Date Type Department Care Team (Late st Contact Info) Description 11/17/2010 Results Only [facility] Laboratory Services - [facility] ([facility]) [address] [place], [place] [phone] Marisa Vega MD [address] [place] [id number] Social History Tobacco Use Types Packs/Day Years Used Date Smoking Tobacco: Never Assessed Sex and Gender Information Value Date Recorded Sex Assigned at Not on file Gender Identity Not on file Sexual Orientation Not on file documented as of this encounter Plan of Treatment Not on file documented as of this encounter Procedures Procedure Name Priority Date/Time Associated Diagnosis Comments SURGICAL PATHOLOGY Routine 11/17/2010 0:00 EST documented in this encounter Results * SURGICAL PATHOLOGY (11/17/2010 0:00 EST) Pathology Report: SURGICAL PATHOLOGY REPORT ? Reports generated via electronic interface contain original data; ? however they are lacking the format of the original report. ? Caution should be taken when reading/interpreti ng unformatted reports. ? Name: ? DARRYN, SHELTON ? Accession #: ? [id number] ? : ? 1960 (Age: 50) ??F ? Collect Date: ? 11/17/2010 ? Location: ? [facility] ? Receive Date: ? 11/18/2010 ? Provider: MARISA VEGA MD ? Copy to: ZACK F ENEDINA DO ? Final Pathologic Diagnosis: ? Endometrium, biopsy: ? 1. ?Strips of inactive endometrium with focal tubal metaplasia. ? Document reviewed and electronically signed by: ? VIRIDIANA BARONE MD ? Report ??Date: 11/24/2010 10:11 ? By the signature above, the attending physician certifies that he/she has ? personally conducted a gross and/or microscopic examination of the described ? specimens and rendered or confirmed the above diagnosis. ? Specimen(s) Received: ? Endometrial biopsy ? Clinical History: ? Thickened endometrium on U/S, LMP: 2 years; clinical diagnosis code: 621.30 ? Gross Description: ? Received in formalin labelled Shelton Morrison and EMB is a 2.0 x 2.0 x ?? 0.2 cm aggregate of red-brown, hemorrhagic tissue fragments admixed with mucus. The specimen is filtered and entirely submitted in a single cassette. (L. ? Jim)/isela ? End of Report ? [facility] 11/17/2010 11/18/2010 12: 25 EST Marisa Vega MD PATHOLOGY ORDERABLES Performing Organization Address City/State/[facility] Co de Phone Number [facility] [address] [place] [address] documented in this encounter Visit Diagnoses Not on filedocumented in this encounter Care Teams Editorial Assistant Relationship Specialty Start Date End Date Unknown, Provider, PCP - General 11/18/10 12/22/10 documented as of this encounter
--- OUTSIDE RECORDS SUMMARY | 2024-05-17 08:46 | XMS_ITS | Encounter Summary ---
Author Organization [facility] Address [address] [place] [address] Care Team Providers Care Lockstitch Coat Joiner Name Role Phone Panfilo, Vasyl Deborah DO Primary Care Provider +1- [phone] Encounter Details Date Type Department Care Team (Late st Contact Info) Description 10/25/2011 Results Only [facility] Laboratory Services - [facility] ([facility]) [address] [place], [place] [id number] Ivett Lott, DO [address] [facility] [address] [place], [place] [id number] Social History Tobacco Use Types Packs/Day Years Used Date Smoking Tobacco: Never Assessed Sex and Gender Information Value Date Recorded Sex Assigned at Not on file Gender Identity Not on file Sexual Orientation Not on file documented as of this encounter Plan of Treatment Not on file documented as of this encounter Procedures Procedure Name Priority Date/Time Associated Diagnosis Comments SURGICAL PATHOLOGY Routine 10/25/2011 0:00 EST documented in this encounter Results * SURGICAL PATHOLOGY (10/25/2011 0:00 EST) Pathology Report: SURGICAL PATHOLOGY REPORT Reports generated via electronic interface contain original data; however they are lacking the format of the original report. Caution should be taken when reading/interpreti ng unformatted reports. Name: ? SHELTON CATES ? Accession #: ? [id number] ? : ? 1960 (Age: 51) ??F ? Collect Date: ? 10/25/2011 ? Location: ? [facility] ? Receive Date: ? 10/25/2011 ? Provider: IVETT LOTT DO Copy to: VASYL ALTAMIRANODERICK DO ? Final Pathologic Diagnosis: ? Gallbladder, cholecystectomy: - Gallbladder with minimally chronic cholecystitis. Document reviewed and electronically signed by: VIRIDIANA BARONE MD Report ??Date: 10/27/2011 17:57 By the signature above, the attending physician certifies that he/she has personally conducted a gross and/or microscopic examination of the described specimens and rendered or confirmed the above diagnosis. Specimen(s) Received: ? Gallbladder Clinical History: ? Right upper quadrant pain Gross Description: ? Received in formalin labelled Shelton Cates and gallbladder is an 8.0 cm in length by 2.5 cm in diameter gallbladder received closed which includes a 1.0 cm in length by 0.6 cm in diameter segment of cystic duct (proximal cystic duct margin is black inked). ??The gallbladder contains dark green bile, however, there are no choleliths. ??The gallbladder mucosa is márquez-dark green bile stained and velvety. ??The gallbladder wall measures 0.2 cm in thickness. ??The serosa is smooth, white to focally pale yellow. ??The cystic duct margin (black inked and en face) along with sections of upper and lower gallbladder are submitted in one cassette. ??(Gatito Forrester/meera ?? End of Report TRAN [facility] 10/25/2011 10/25/2011 16: 07 EST Ivett Ltot DO PATHOLOGY ORDER CELESTE [facility] [address] [place] [address] documented in this encounter Visit Diagnoses Not on filedocumented in this encounter Care Teams Lockstitch Coat Joiner Relationship Specialty Start Date End Date Vasyl Whittaker DO [address] [place] [address] PCP - General 12/23/10 documented as of this encounter
--- OUTSIDE RECORDS SUMMARY | 2024-05-17 08:46 | XMS_ITS | Encounter Summary ---
Author Organization [facility] Address [address] [place] [address] Care Team Providers Care Stock Preparation Operator Name Role Phone PanfiloVasyl roe Primary Care Provider +1- [phone] Encounter Details Date Type Department Care Team (Late st Contact Info) Description 02/01/2023 Lab Requisition [facility] Pathology & Laboratory Medicine - [facility] [address] [place] [address] Sharif Nagel, DO [address] [place] [address] [address] [place] [address] Neoplasm of unspecified behavior of bone, soft [...] Date/Time Associated Diagnosis Comments SURGICAL PATHOLOGY Today 01/31/2023 14 :15 EDT Neoplasm of unspecified behavior of bone, soft tissue, and skin documented in this encounter Results * SURGICAL PATHOLOGY (01/31/2023 14:15 EDT) Note to Patient The following pathology results have been interpreted by your pathologist and may be available to you before your health provider has had the opportunity to review them. Please allow time for your provider to receive these results and explore management options, if applicable. 02/02/2023 12:58 [facility] Final Diagnosis A. SKIN OF TRICEPS, LEFT, EXCISION: - Malignant melanoma (Superficial spreading type), residual. See comment and synoptic report. - Breslow thickness: 0.4 mm - Ulceration: No ulceration B. SKIN OF SHOULDER, RIGHT, SHAVE BIOPSY: - Dermatofibroma. 02/02/2023 12:58 [facility] Diagnosis Comment The patient's prior biopsy ([id number]) is reviewed in conjunction with this case. The excisional specimen shows residual malignant melanoma. The majority is comprised of an in-situ component of atypical individual melanocytes with upward migration extending laterally from the dermal scar. A focal invasive component is seen extending to a depth of 0.4 mm. Ulceration is not identified. 02/02/2023 12:58 [facility] Attestation By the signature below, the attending physician certifies that they have 1) personally conducted a gross and/or microscopic examination of the described specimen(s), and/or personally interpreted the results of laboratory testing of the described specimen(s), and 2) personally rendered or confirmed the above diagnosis. 02/02/2023 12:58 [facility] at 1258 Synoptic MELANOMA OF THE SKIN: Excision, Re-Excision MELANOMA OF THE SKIN: EXCISION, RE-EXCISION ??- A 8th Edition - Protocol posted: 08/04/2021 SPECIMEN ?? Procedure: ?Re-excision ?? Specimen Laterality: ?Left TUMOR ?? Tumor Site: ?Skin of upper limb and shoulder ?? Histologic Type: ?Superficial spreading melanoma (low-cumulative sun damage (CSD) melanoma) ?? Maximum Tumor (Breslow) Thickness (Millimeters): ?0.4 mm ?? Macroscopic Satellite Nodule(s): ?Not identified ?? Ulceration: ?Not identified ?? Anatomic (Kale) Level: ?II (Melanoma present in but does not fill and expand papillary dermis) ?? Mitotic Rate: ?None identified ?? Microsatellite(s) : ?Not identified ?? Lymphovascular Invasion: ?Not identified ?? Neurotropism: ?Not identified ?? Tumor-Infiltratin g Lymphocytes: ?Not identified ?? Tumor Regression: ?Not identified ?? MARGINS: ? Margin Status for Invasive Melanoma: ?All margins negative for invasive melanoma ? Closest Margin Location(s) to Invasive Melanoma: ?3 o'clock ? Distance from Invasive Melanoma to Peripheral Margin: ?8 mm ? Distance from Invasive Melanoma to Deep Margin: ?5.8 mm ? Margin Status for Melanoma in situ: ?All margins negative for melanoma in situ ? Distance from Melanoma in Situ to Peripheral Margin: ?7 mm ?? REGIONAL LYMPH NODES: ? Regional Lymph Node Status: ?Not applicable (no regional lymph nodes submitted or found) ?? PATHOLOGIC STAGE CLASSIFICATION (pTNM, AJCC 8th Edition): ? pT Category: ?pT1a ? pN Category: ?pN not assigned (no nodes submitted or found) Comment(s): ?[id number] 02/02/2023 12:58 [facility] Clinical History Clinical diagnosis code: D49.2 02/02/2023 12:58 [facility] Gross Description A. Received in formalin labelled with proper patient identification (initials G, K) and left tricep skin excision is an unoriented elliptical excision of márquez slightly wrinkled skin oriented with a white suture at 3 o'clock, a black suture at 6 o'clock, and a blue suture at 9 o'clock, per requisition. The specimen is 5.4 cm from 12-6 o'clock, 2.2 cm from 3-9 o'clock, and excised to a depth of 1.0 cm. On the central skin surface there is an irregular dark brown macule (0.9 x 0.8 cm). The 3 o'clock margin is inked blue and the 9 o'clock margin is inked black. The specimen is serially sectioned from 12 to 6 o'clock and is submitted entirely as follows: BLOCK MIN A1- 12 o'clock tip, reverse en face A2-A11- 16 central sections A12- 6 o'clock tip, reverse en face B. Received in formalin labelled with proper patient identification (initials G, K) and right shoulder skin is an ovoid shave biopsy of márquez skin (1.1 x 1.0 x 0.1 cm). On the central skin surface there is an ill-defined dark brown macule (0.7 x 0.6 cm). The specimen is inked, trisected and submitted entirely in B1. VICKEY CHA(ASCP) 02/01/2023 17:18 02/02/2023 12:58 EDT [facility] Performing Lab [facility] 02/02/2023 12:58 EDT [facility] Scanned Images 02/02/2023 12:58 EDT [facility] Tissue TISSUE SPECIMEN FROM SKIN / Unknown 01/31/2023 14:15 EDT 02/01/2023 16:36 EDT Tissue specimen (specimen) SPECIMEN FROM SKIN / Unknown 01/31/2023 14:15 EDT 02/01/2023 16:36 EDT Sharif Nagel DO PATHOLOGY ORDER CELESTE [facility] [address] [place] [address] documented in this encounter Visit Diagnoses Diagnosis Neoplasm of unspecified behavior of bone, soft tissue, and skin documented in this encounter Care Teams Stock Preparation Operator Relationship Specialty Start Date End Date Vasyl Whittaker DO [address] [place] [address] [place] [address] PCP - General 12/23/10 documented as of this encounter
--- OUTSIDE RECORDS SUMMARY | 2024-05-17 08:46 | XMS_ITS | Encounter Summary ---
Author Organization [facility] Address [address] [place] [address] Care Team Providers Care Rehabilitation Inspector Name Role Phone Vasyl Whittaker DO Primary Care Provider +1- [phone] Encounter Details Date Type Department Care Team (Late st Contact Info) Description 06/18/2018 Results Only [facility] [phone] Marychuy Gardiner, [address] [place], [place] [id number] Social History Tobacco Use Types Packs/Day Years Used Date Smoking Tobacco: Never Assessed Sex and Gender Information Value Date Recorded Sex Assigned at Not on file Gender Identity Not on file Sexual Orientation Not on file documented as of this encounter Plan of Treatment Not on file documented as of this encounter Procedures Procedure Name Priority Date/Time Associated Diagnosis Comments SURGICAL PATHOLOGY Routine 06/18/2018 17 :58 EDT documented in this encounter Results * SURGICAL PATHOLOGY (06/18/2018 17:58 EDT) Pathology Report: SURGICAL PATHOLOGY REPORT Reports generated via electronic interface contain original data; however they are lacking the format of the original report. Caution should be taken when reading/interpret ing unformatted reports. Name: ? SHELTON CATES ? Accession #: ? [id number] ? : ? 1960 (Age: 58) ??F ? Collect Date: ? 06/18/2018 ? Location: ? [facility] ? Receive Date: ? 06/18/2018 ? Provider: MARYCHUY GARDINER DO Copy to: CHASITY KEITH MD ? Final Pathologic Diagnosis: SALIVARY GLAND, MINOR, LOWER LIP, BIOPSY: - Salivary gland with lymphocytic aggregates, consistent with Sjogren's syndrome (Focus score of 4). See comment. Comment: The findings are that of a serous mucinous minor salivary gland with 4 foci of lymphocytic aggregates with greater than 50 lymphocytes and each aggregate. This meets the quantification criteria for Sjogren's syndrome on salivary gland biopsy. Dr. Quigley 06/21/2018 7:02 AM Document reviewed and electronically signed by: LILIYA MCNAMARA MD Report ??Date: 06/21/2018 09:15 By the signature above, the attending physician certifies that he/she has personally conducted a gross and/or microscopic examination of the described specimens and rendered or confirmed the above diagnosis. Specimen(s) Received: Minor salivary glands lower lip Clinical History: Dry mouth, possible Sjogren's Gross Description: ? Received in formalin labelled with proper patient identification (initials G, K) and minor salivary glands lower lip are five márquez-white tissues (0.4 x 0.3 x 0.2 cm to 0.2 x 0.1 x 0.1 cm). Entirely submitted in 1 and 2. Jaime Helton 06/19/2018 8:01 AM End of Report [facility] 06/18/2018 17:5 8 EDT 06/18/2018 17:58 EDT Marychuy Gardiner DO PATHOLOGY ORDER CELESTE [facility] [address] [place] [address] documented in this encounter Visit Diagnoses Not on filedocumented in this encounter Care Teams Rehabilitation Inspector Relationship Specialty Start Date End Date Vasyl Whittaker, [address] [place] [address] [address] [place] [address] PCP - General 12/23/10 documented as of this encounter
--- OUTSIDE RECORDS SUMMARY | 2024-05-17 08:46 | XMS_ITS | Encounter Summary ---
Author Organization [facility] Address [address] [place] [address] Care Team Providers Care Digital Data Analyst Name Role Phone Panfilo, Vasyl Deborah Primary Care Provider +1- [phone] Encounter Details Date Type Department Care Team (Late st Contact Info) Description 06/24/2021 Lab Requisition [facility] Pathology & Laboratory Medicine - [facility] [address] [place], [place] [address] Outr Resulting Lab, Provider Social History Tobacco [...] Procedure Name Priority Date/Time Associated Diagnosis Comments HOLD SST Today 06/23/2021 15:51 EDT HOLD SST Today 06/23/2021 15:51 EDT DOUBLE STRANDED DNA ANTIBODY, IGG Today 06/23/2021 15:51 EDT RHEUMATOID FACTOR Today 06/23/2021 15: 51 EDT C3 COMPLEMENT Today 06/23/2021 15:51 EDT C4 COMPLEMENT Today 06/23/2021 15:51 EDT documented in this encounter Results * HOLD SST (06/23/2021 15:51 EDT) Hold Hold 06/24/2021 17:15 EDT [facility] Blood VENOUS BLOOD / Unknown 06/23/2021 15:51 EDT 06/24/2021 16:14 EDT Provider Outr Resulting Lab LAB INFO SER VICE AND SUPPORT & PHONE RESULT [facility] [address] [place] [address] * HOLD SST (06/23/2021 15:51 EDT) Hold Hold 06/24/2021 17:15 EDT [facility] Blood VENOUS BLOOD / Unknown 06/23/2021 15:51 EDT 06/24/2021 16:14 EDT Provider Outr Resulting Lab LAB INFO SER VICE AND SUPPORT & PHONE RESULT Performing Organization Address [facility]/ZIP Co de Phone Number [facility] [address] [place] [address] * RHEUMATOID FACTOR (06/23/2021 15:51 EDT) [facility] Rheumatoid Factor <8.6 <12.0 IU/mL 06/24/2021 19:44 EDT [facility] Blood VENOUS BLOOD / Unknown 06/23/2021 15:51 EDT 06/24/2021 16:14 EDT Provider Outr Resulting Lab CHEMISTRY & BLOOD GAS ORDERABLES Performing Organization Address City/[facility]/ZIP Co de Phone Number [facility] [address] [place] [address] * ANTI DNA (DOUBLE STRANDED) (06/23/2021 15:51 EDT) [facility] Anti-DNA (Double Stranded) <12.3 <30.0 IU/mL 06/29/2021 10:36 EDT [facility] Comment: ? Negative: ??<30.0 IU/mL ? Borderline Positive: ??30.0 - 75.0 IU/mL ? Positive: ??>75.0 IU/mL Results were obtained with the JocoosA Lite dsDNA SC TABATHA assay on the CardiOx DSX. Blood VENOUS BLOOD / Unknown 06/23/2021 15:51 EDT 06/24/2021 16:14 EDT Provider Outr Resulting Lab IMMUNOLOGY A ND SEROLOGY ORDERABLES Performing Organization Address [facility] de Phone Number [facility] [address] [place] [address] * C3 COMPLEMENT (06/23/2021 15:51 EDT) C3 Complement 117 81 - 157 mg/dL 06/25/2021 9:25 EDT [facility] Blood VENOUS BLOOD / Unknown 06/23/2021 15:51 EDT 06/24/2021 16:14 EDT Provider Outr Resulting Lab CHEMISTRY & BLOOD GAS ORDERABLES Performing Organization Address [facility] de Phone Number [facility] [address] [place] [address] * C4 COMPLEMENT (06/23/2021 15:51 EDT) C4 Complement 24 13 - 39 mg/dL 06/25/2021 9:25 EDT [facility] Blood VENOUS BLOOD / Unknown 06/23/2021 15:51 EDT 06/24/2021 16:14 EDT Provider Outr Resulting Lab CHEMISTRY & BLOOD GAS ORDERABLES Performing Organization Address [facility] de Phone Number [facility] [address] [place] [address] documented in this encounter Visit Diagnoses Not on filedocumented in this encounter Additional Health Concerns Infection Onset Date Last Indicated Resolved Time COVID-19 02/16/2022 02/16/2022 03/08/2022 22:1 5 EDT documented as of this encounter Care Teams Digital Data Analyst Relationship Specialty Start Date End Date Vasyl Whittaker DO [address] [place] [address] PCP - General 12/23/10 documented as of this encounter
--- OUTSIDE RECORDS SUMMARY | 2024-05-17 08:46 | XMS_ITS | Encounter Summary ---
Author Organization [facility] Address [address] [place] [address] Care Team Providers Care Printed Circuit Board Panels Plater Name Role Phone PanfiloVasyl roe Primary Care Provider +1- [phone] Encounter Details Date Type Department Care Team (Late st Contact Info) Description 12/28/2022 Lab Requisition [facility] Pathology & Laboratory Medicine - [facility] [address] [place], [place] [address] Outr Resulting Lab, Provider Social History Tobacco [...] INCLUDES QUANTITATION OF MONOCLONAL SPIKE PERFORMABLE Today 12/28/2022 11:08 EDT RHEUMATOID FACTOR Routine 12/28/2022 11: 08 EDT C3 COMPLEMENT Routine 12/28/2022 11:08 EDT C4 COMPLEMENT Routine 12/28/2022 11:08 EDT SPEP, INCLUDES QUANTITATION OF MONOCLONAL SPIKE Routine 12/28/2022 11:08 EDT PROTEIN, TOTAL Today 12/28/2022 11:08 EDT documented in this encounter Results * SPEP, INCLUDES QUANTITATION OF MONOCLONAL SPIKE PERFORMABLE (12/28/2022 11:08 EDT) Albumin % 62.0 55.8 - 66.1 % 12/29/2022 12:41 [facility] Albumin g/dL 4.4 3.6 - 5.2 g/dL 12/29/2022 12:41 [facility] Alpha-1 % 3.4 2.9 - 4.9 % 12/29/2022 12:41 [facility] Alpha-1 g/dL 0.20 0.15 - 0.40 g/dL 12/29/2022 12:41 [facility] Alpha-2 % 8.7 7.1 - 11.8 % 12/29/2022 12:41 [facility] Alpha-2 g/dL 0.60 0.50 - 1.00 g/dL 12/29/2022 12:41 [facility] Beta % 11.3 8.4 - 13.1 % 12/29/2022 12:41 [facility] Beta g/dL 0.80 0.60 - 1.20 g/dL 12/29/2022 12:41 [facility] Gamma % 14.6 11.1 - 18.8 % 12/29/2022 12:41 [facility] Gamma g/dL 1.00 0.60 - 1.60 g/dL 12/29/2022 12:41 [facility] SPEP Comment No apparent monoclonal protein seen on serum electrophoresis 12/29/2022 12:41 [facility] Comment:See scanned/suppleme ntary report. Total Protein 7.1 6.3 - 8.2 g/dL 12/29/2022 12:41 [facility] Blood VENOUS BLOOD / Unknown 12/28/2022 11:08 EDT 12/28/2022 19:37 EDT Provider Outr Resulting Lab CHEMISTRY & BLOOD GAS ORDERABLES Performing Organization Address City/[facility]/ZIP Co de Phone Number [facility] [address] [place] [address] * PROTEIN, TOTAL (12/28/2022 11:08 EDT) Blood VENOUS BLOOD / Unknown 12/28/2022 11:08 EDT 12/28/2022 19:37 EDT Provider Outr Resulting Lab CHEMISTRY & BLOOD GAS ORDERABLES [facility] [address] [place] [address] * RHEUMATOID FACTOR (12/28/2022 11:08 EDT) Rheumatoid Factor <8.6 <12.0 IU/mL 12/28/2022 19:59 EDT [facility] Blood VENOUS BLOOD / Unknown 12/28/2022 11:08 EDT 12/28/2022 19:37 EDT Provider Outr Resulting Lab CHEMISTRY & BLOOD GAS ORDERABLES Performing Organization Address [facility]/ZIP Co de Phone Number [facility] [address] [place] [address] * C3 COMPLEMENT (12/28/2022 11:08 EDT) C3 Complement 105 81 - 157 mg/dL 12/29/2022 9:45 EDT [facility] Blood VENOUS BLOOD / Unknown 12/28/2022 11:08 EDT 12/28/2022 19:37 EDT Provider Outr Resulting Lab CHEMISTRY & BLOOD GAS ORDERABLES Performing Organization Address [facility] [[email or web address]] Co de Phone Number [facility] [address] [place] [address] * C4 COMPLEMENT (12/28/2022 11:08 EDT) C4 Complement 22 13 - 39 mg/dL 12/29/2022 9:45 EDT [facility] Blood VENOUS BLOOD / Unknown 12/28/2022 11:08 EDT 12/28/2022 19:37 EDT Provider Outr Resulting Lab CHEMISTRY & BLOOD GAS ORDERABLES [facility] [address] [place] [address] documented in this encounter Visit Diagnoses Not on filedocumented in this encounter Care Teams Printed Circuit Board Panels Plater Relationship Specialty Start Date End Date Vasyl Whittaker DO [address] [place] [id number] PCP - General 12/23/10 documented as of this encounter
--- OUTSIDE RECORDS SUMMARY | 2024-05-17 08:46 | XMS_ITS | Encounter Summary ---
Author Organization [facility] Address [address] [place] [address] Care Team Providers Care Rug Cleaner Hand Name Role Phone PanfiloVasyl roe Primary Care Provider +1- [phone] Encounter Details Date Type Department Care Team (Late st Contact Info) Description 07/12/2023 Lab Requisition [facility] Pathology & Laboratory Medicine - [facility] [address] [place], [place] [id number] Outr Resulting Lab, Provider Social History Tobacco [...] INCLUDES QUANTITATION OF MONOCLONAL SPIKE PERFORMABLE Today 07/12/2023 8:40 EDT RHEUMATOID FACTOR Routine 07/12/2023 8:4 0 EDT C4 COMPLEMENT Routine 07/12/2023 8:40 EDT SPEP, INCLUDES QUANTITATION OF MONOCLONAL SPIKE Routine 07/12/2023 8:40 EDT PROTEIN, TOTAL Today 07/12/2023 8:40 EDT documented in this encounter Results * SPEP, INCLUDES QUANTITATION OF MONOCLONAL SPIKE PERFORMABLE (07/12/2023 8:40 EDT) Albumin % 60.7 55.8 - 66.1 % 07/13/2023 13:47 [facility] Albumin g/dL 3.9 3.6 - 5.2 g/dL 07/13/2023 13:47 [facility] Alpha-1 % 3.7 2.9 - 4.9 % 07/13/2023 13:47 [facility] Alpha-1 g/dL 0.20 0.15 - 0.40 g/dL 07/13/2023 13:47 [facility] Alpha-2 % 9.9 7.1 - 11.8 % 07/13/2023 13:47 [facility] Alpha-2 g/dL 0.60 0.50 - 1.00 g/dL 07/13/2023 13:47 [facility] Beta % 11.5 8.4 - 13.1 % 07/13/2023 13:47 [facility] Beta g/dL 0.70 0.60 - 1.20 g/dL 07/13/2023 13:47 [facility] Gamma % 14.2 11.1 - 18.8 % 07/13/2023 13:47 [facility] Gamma g/dL 0.90 0.60 - 1.60 g/dL 07/13/2023 13:47 [facility] SPEP Comment No apparent monoclonal protein seen on serum electrophoresis 07/13/2023 13:47 [facility] Comment:See scanned/suppleme ntary report. Total Protein 6.5 6.3 - 8.2 g/dL 07/13/2023 13:47 [facility] Blood VENOUS BLOOD / Unknown 07/12/2023 8:40 EDT 07/12/2023 17:15 EDT Provider Outr Resulting Lab CHEMISTRY & BLOOD GAS ORDERABLES [facility] [address] [place] [address] * PROTEIN, TOTAL (07/12/2023 8:40 EDT) Blood VENOUS BLOOD / Unknown 07/12/2023 8:40 EDT 07/12/2023 17:15 EDT Provider Outr Resulting Lab CHEMISTRY & BLOOD GAS ORDERABLES Performing Organization Address City/[facility]/ZIP Co de Phone Number [facility] [address] [place] [address] * RHEUMATOID FACTOR (07/12/2023 8:40 EDT) Rheumatoid Factor <8.6 <12.0 IU/mL 07/12/2023 18:52 EDT [facility] Blood VENOUS BLOOD / Unknown 07/12/2023 8:40 EDT 07/12/2023 17:15 EDT Provider Outr Resulting Lab CHEMISTRY & BLOOD GAS ORDERABLES Performing Organization Address [facility] Co de Phone Number [facility] [address] [place] [address] * C4 COMPLEMENT (07/12/2023 8:40 EDT) C4 Complement 28 13 - 39 mg/dL 07/13/2023 9:42 EDT [facility] Blood VENOUS BLOOD / Unknown 07/12/2023 8:40 EDT 07/12/2023 17:15 EDT Provider Outr Resulting Lab CHEMISTRY & BLOOD GAS ORDERABLES Performing Organization Address [facility] Co de Phone Number [facility] [address] [place] [address] documented in this encounter Visit Diagnoses Not on filedocumented in this encounter Care Teams Rug Cleaner Hand Relationship Specialty Start Date End Date Vasyl Whittaker DO [address] [place] [address] PCP - General 12/23/10 documented as of this encounter
--- OUTSIDE RECORDS SUMMARY | 2024-05-17 08:46 | XMS_ITS | Encounter Summary ---
Author Organization [facility] Address [address] [place] [address] Care Team Providers Care Pipe Supervisor Name Role Phone PanfiloVasyl roe Primary Care Provider +1- [phone] Encounter Details Date Type Department Care Team (Late st Contact Info) Description 07/12/2023 Lab Requisition [facility] Pathology & Laboratory Medicine - [facility] [address] [place], [place] [address] Outr Resulting Lab, Provider Social History Tobacco [...] Procedure Name Priority Date/Time Associated Diagnosis Comments URINE MONOCLONAL PROTEIN STUDY (UPEP WITH IMMUNOTYPING) PERFORMABLE Today 07/12/2023 8:10 EDT PROTEIN, TOTAL, RANDOM, URINE Today 07/12/2023 8:10 EDT URINE MONOCLONAL PROTEIN STUDY (UPEP WITH IMMUNOTYPING) Routine 07/12/2023 8:10 EDT documented in this encounter Results * URINE MONOCLONAL PROTEIN STUDY (UPEP WITH IMMUNOTYPING) PERFORMABLE (07/12/2023 8:10 EDT) Albumin, Urine % 23.4 N/A % 07/13/20 23 15:14 [facility] Albumin, Urine mg/dL 2 mg/dL 07/13/2023 15:14 [facility] Globulins, Urine % 76.6 N/A % 07/13/2023 15:14 [facility] Globulins, Urine mg/dL 8 mg/dL 07/13/2023 15:14 [facility] UPEP Comment See Comment 07/13/2023 15:14 [facility] Comment:Electrophoresis scre ening performed; Immunotyping to follow. ??See scanned/supplementary report. Immunotyping, Urine Current Interpretatio n: Negative for free monoclonal light chains. Reviewed by: Jaime Milan MD 07/13/2023 1346 07/13/2023 15:14 [facility] Total Protein, Urine 10 See Note mg/dL 07/13/2023 15:14 [facility] Comment: NOTE: Reference range has not been established for total protein concentration in random urine specimens. Urine URINE / Unknown 07/12/2023 8 :10 EDT 07/12/2023 17:15 EDT Provider Outr Resulting Lab URINALYSIS O RDERABLES Performing Organization Address [facility] Co de Phone Number [facility] [address] [place] [address] * PROTEIN, TOTAL, RANDOM, URINE (07/12/2023 8:10 EDT) Urine URINE / Unknown 07/12/2023 8 :10 EDT 07/12/2023 17:15 EDT Provider Outr Resulting Lab URINALYSIS O RDERABLES Performing Organization Address City/[facility] Co de Phone Number [facility] [address] [place] [address] documented in this encounter Visit Diagnoses Not on filedocumented in this encounter Care Teams Pipe Supervisor Relationship Specialty Start Date End Date Vasyl Whittaker DO [facility] [address] [place] [address] PCP - General 12/23/10 documented as of this encounter
--- OUTSIDE RECORDS SUMMARY | 2024-05-17 08:46 | XMS_ITS | Encounter Summary ---
Author Organization [facility] Address [address] [place] [address] Care Team Providers Care Energy Efficient Site Manager Name Role Phone PanfiloVasyl roe Primary Care Provider +1- [phone] Encounter Details Date Type Department Care Team (Late st Contact Info) Description 12/13/2023 Lab Requisition [facility] Pathology & Laboratory Medicine - [facility] [address] [place], [place] [address] Outr Resulting Lab, Provider Social History Tobacco [...] Procedure Name Priority Date/Time Associated Diagnosis Comments HIV 1/2 ANTIGEN AND ANTIBODY, 4TH GENERATION Routine 12/13/2023 8:50 EDT documented in this encounter Results * HIV 1/2 ANTIGEN AND ANTIBODY, 4TH GENERATION (12/13/2023 8:50 EDT) HIV 1 and 2 Antibody/p24 Antigen, 4th Generation Negative Negative 12/13/2023 18:[address] [facility] Comment:If acute HIV-1 infec tion is suspected in a high risk patient, submit plasma specimen for HIV-1 RNA quantitation test. Blood VENOUS BLOOD / Unknown 12/13/2023 8:50 EDT 12/13/2023 16:[address] [facility] - 12/13/2023 18:50 EDT Fourth Generation assay performed on the Siemens [employer] XPT. Provider Outr Resulting Lab IMMUNOLOGY A ND SEROLOGY ORDERABLES [facility] [address] [place], [place] [id number] documented in this encounter Visit Diagnoses Not on filedocumented in this encounter Care Teams Energy Efficient Site Manager Relationship Specialty Start Date End Date Vasyl Whittaker DO [address] [place] [address] [place] [address] PCP - General 12/23/10 documented as of this encounter
--- OUTSIDE RECORDS SUMMARY | 2024-05-17 08:46 | XMS_ITS | Encounter Summary ---
Author Organization [facility] Address [address] [place] [address] Care Team Providers Care Lamination Builder Name Role Phone PanfiloVasyl roe Primary Care Provider +1- [phone] Encounter Details Date Type Department Care Team (Late st Contact Info) Description 01/26/2024 Lab Requisition [facility] Pathology & Laboratory Medicine - [facility] [address] [place], [place] [address] Outr Resulting Lab, Provider Social History Tobacco [...] INCLUDES QUANTITATION OF MONOCLONAL SPIKE PERFORMABLE Today 01/26/2024 7:40 EDT RHEUMATOID FACTOR Routine 01/26/2024 7:4 0 EDT C3 COMPLEMENT Routine 01/26/2024 7:40 EDT C4 COMPLEMENT Routine 01/26/2024 7:40 EDT SPEP, INCLUDES QUANTITATION OF MONOCLONAL SPIKE Routine 01/26/2024 7:40 EDT PROTEIN, TOTAL Today 01/26/2024 7:40 EDT documented in this encounter Results * SPEP, INCLUDES QUANTITATION OF MONOCLONAL SPIKE PERFORMABLE (01/26/2024 7:40 EDT) Albumin % 61.4 55.8 - 66.1 % 01/29/2024 13:00 [facility] Albumin g/dL 4.1 3.6 - 5.2 g/dL 01/29/2024 13:00 [facility] Alpha-1 % 3.5 2.9 - 4.9 % 01/29/2024 13:00 [facility] Alpha-1 g/dL 0.20 0.15 - 0.40 g/dL 01/29/2024 13:00 [facility] Alpha-2 % 9.4 7.1 - 11.8 % 01/29/2024 13:00 [facility] Alpha-2 g/dL 0.60 0.50 - 1.00 g/dL 01/29/2024 13:00 [facility] Beta % 11.9 8.4 - 13.1 % 01/29/2024 13:00 [facility] Beta g/dL 0.80 0.60 - 1.20 g/dL 01/29/2024 13:00 [facility] Gamma % 13.8 11.1 - 18.8 % 01/29/2024 13:00 [facility] Gamma g/dL 0.90 0.60 - 1.60 g/dL 01/29/2024 13:00 [facility] SPEP Comment No apparent monoclonal protein seen on serum electrophoresis 01/29/2024 13:00 [facility] Comment:See scanned/suppleme ntary report. Total Protein 6.6 6.3 - 8.2 g/dL 01/29/2024 13:00 [facility] Blood VENOUS BLOOD / Unknown 01/26/2024 7:40 EDT 01/26/2024 17:17 EDT Provider Outr Resulting Lab CHEMISTRY & BLOOD GAS ORDERABLES Performing Organization Address [facility]/ZIP Co de Phone Number [facility] [address] [place] [address] * PROTEIN, TOTAL (01/26/2024 7:40 EDT) Blood VENOUS BLOOD / Unknown 01/26/2024 7:40 EDT 01/26/2024 17:17 EDT Provider Outr Resulting Lab CHEMISTRY & BLOOD GAS ORDERABLES Performing Organization Address City/[facility]/ZIP Co de Phone Number [facility] [address] [place] [address] * RHEUMATOID FACTOR (01/26/2024 7:40 EDT) Pathologist [facility] Rheumatoid Factor <8.6 <12.0 IU/mL 01/26/2024 17:42 EDT [facility] Blood VENOUS BLOOD / Unknown 01/26/2024 7:40 EDT 01/26/2024 17:17 EDT Provider Outr Resulting Lab CHEMISTRY & BLOOD GAS ORDERABLES Performing Organization Address [facility] Co de Phone Number [facility] [address] [place], [place] [id number] * C3 COMPLEMENT (01/26/2024 7:40 EDT) C3 Complement 111 81 - 157 mg/dL 01/27/2024 10:06 EDT [facility] Blood VENOUS BLOOD / Unknown 01/26/2024 7:40 EDT 01/26/2024 17:17 EDT Provider Outr Resulting Lab CHEMISTRY & BLOOD GAS ORDERABLES Performing Organization Address [facility]/ZIP Co de Phone Number [facility] [address], [place] [id number] * C4 COMPLEMENT (01/26/2024 7:40 EDT) Pathologist [facility] C4 Complement 23 13 - 39 mg/dL 01/27/2024 10:06 EDT [facility] Blood VENOUS BLOOD / Unknown 01/26/2024 7:40 EDT 01/26/2024 17:17 EDT Provider Outr Resulting Lab CHEMISTRY & BLOOD GAS ORDERABLES [facility] [address], [place] [address] documented in this encounter Visit Diagnoses Not on filedocumented in this encounter Care Teams Lamination Builder Relationship Specialty Start Date End Date Vasyl Whittaker DO [address] [place] [address] PCP - General 12/23/10 documented as of this encounter
--- OUTSIDE RECORDS SUMMARY | 2024-05-17 08:46 | XMS_ITS | Encounter Summary ---
Author Organization [facility] Address [address] [place] [address] Care Team Providers Care Information Security Systems Instructor Name Role Phone PanfiloVasyl roe Primary Care Provider +1- [phone] Encounter Details Date Type Department Care Team (Late st Contact Info) Description 10/29/2021 Lab Requisition [facility] Pathology & Laboratory Medicine - [facility] [address] [place], [place] [address] Outr Resulting Lab, Provider Social History Tobacco [...] 1/2 ANTIGEN AND ANTIBODY, 4TH GENERATION Routine 10/29/2021 13:15 EST documented in this encounter Results * HIV 1/2 ANTIGEN AND ANTIBODY, 4TH GENERATION (10/29/2021 13:15 EST) HIV 1 and 2 Antibody/p24 Antigen, 4th Generation Negative Negative 11/01/2021 11:39 EST [facility] Comment:If acute HIV-1 infec tion is suspected in a high risk patient, submit plasma specimen for HIV-1 RNA quantitation test. Blood VENOUS BLOOD / Unknown 10/29/2021 13:15 EST 10/29/2021 22:15 EST Narrative [facility] - 11/01/2021 11:39 EST Fourth Generation assay performed on the Siemens [employer]aur XPT. Provider Outr Resulting Lab IMMUNOLOGY A ND SEROLOGY ORDERABLES [facility] [address] [place] [address] documented in this encounter Visit Diagnoses Not on filedocumented in this encounter Additional Health Concerns Infection Onset Date Last Indicated Resolved Time COVID-19 02/16/2022 02/16/2022 03/08/2022 22:1 5 EDT documented as of this encounter Care Teams Information Security Systems Instructor Relationship Specialty Start Date End Date Vasyl Whittaker, [address] [place] [address] [place] [address] PCP - General 12/23/10 documented as of this encounter
--- OUTSIDE RECORDS SUMMARY | 2024-05-17 08:46 | XMS_ITS | Encounter Summary ---
Author Organization [facility] Address [address] [place] [address] Care Team Providers Care Websphere Commerce Consultant Name Role Phone PanfiloVasyl roe Primary Care Provider +1- [phone] Encounter Details Date Type Department Care Team (Late st Contact Info) Description 12/28/2022 Lab Requisition [facility] Pathology & Laboratory Medicine - [facility] [address] [place], [place] [address] Outr Resulting Lab, Provider Social History Tobacco [...] PROTEIN STUDY (UPEP WITH IMMUNOTYPING) PERFORMABLE Today 12/28/2022 10:52 EDT PROTEIN, TOTAL, RANDOM, URINE Today 12/28/2022 10:52 EDT URINE MONOCLONAL PROTEIN STUDY (UPEP WITH IMMUNOTYPING) Routine 12/28/2022 10:52 EDT documented in this encounter Results * URINE MONOCLONAL PROTEIN STUDY (UPEP WITH IMMUNOTYPING) PERFORMABLE (12/28/2022 10:52 EDT) Albumin, Urine % 18.6 N/A % 12/30/19 23 14:34 EDT [facility] Albumin, Urine mg/dL 2 mg/dL 12/29/2022 14:34 [facility] Globulins, Urine % 81.4 N/A % 12/29/2022 14:34 [facility] Globulins, Urine mg/dL 8 mg/dL 12/29/2022 14:34 [facility] UPEP Comment See Comment 12/29/2022 14:34 [facility] Comment:Electrophoresis scre ening performed; Immunotyping to follow. ??See scanned/supplementary report. Immunotyping, Urine Current Interpretatio n: Negative for free monoclonal light chains. Reviewed by: Toni Morel MD, PhD 12/29/2022 14:19. 12/29/2022 14:34 [facility] Total Protein, Urine 10 See Note mg/dL 12/29/2022 14:34 [facility] Comment: NOTE: Reference range has not been established for total protein concentration in random urine specimens. Urine URINE / Unknown 12/28/2022 1 0:52 EDT 12/28/2022 19:37 EDT Provider Outr Resulting Lab URINALYSIS O RDERABLES Performing Organization Address [facility] Co de Phone Number [facility] [address] [place] [address] * PROTEIN, TOTAL, RANDOM, URINE (12/28/2022 10:52 EDT) Urine URINE / Unknown 12/28/2022 1 0:52 EDT 12/28/2022 19:37 EDT Provider Outr Resulting Lab URINALYSIS O RDERABLES Performing Organization Address City/[facility]/ZIP Co de Phone Number [facility] [address] [place] [address] documented in this encounter Visit Diagnoses Not on filedocumented in this encounter Care Teams Websphere Commerce Consultant Relationship Specialty Start Date End Date Vasyl Whittaker DO [address] [place] [address] [place] [address] PCP - General 12/23/10 documented as of this encounter
--- OUTSIDE RECORDS SUMMARY | 2024-05-17 08:46 | XMS_ITS | Encounter Summary ---
Author Organization [facility] Address [address] [place] [address] Care Team Providers Care Skydiving Instructor Name Role Phone Vasyl Whittaker DO Primary Care Provider +1- [phone] Encounter Details Date Type Department Care Team (Late st Contact Info) Description 07/10/2013 Results Only [facility] Laboratory Services - [facility] ([facility] [address] [place], [place] [id number] Susanna Mackay MD [address] [place] [id number] Social History Tobacco Use Types Packs/Day Years Used Date Smoking Tobacco: Never Assessed Sex and Gender Information Value Date Recorded Sex Assigned at Not on file Gender Identity Not on file Sexual Orientation Not on file documented as of this encounter Plan of Treatment Not on file documented as of this encounter Procedures Procedure Name Priority Date/Time Associated Diagnosis Comments CYTOPATHOLOGY Routine 07/10/2013 0:00 EDT documented in this encounter Results * CYTOPATHOLOGY (07/10/2013 0:00 EDT) Pathology Report: CYTOPATHOLOGY REPORT Reports generated via electronic interface contain original data; however they are lacking the format of the original report. Caution should be taken when reading/interpreti ng unformatted reports. Name: ? SHELTON CATES ? Accession #: ? [id number] : ? 1960 (Age: 53) ??F ?Collect Date: ? 07/10/2013 Location: ? [facility] ? Receive Date: ? [...] and rendered or confirmed the above diagnosis. Specimen Type: ? Urine, [place] Clinical History: ? Vesicle tenesmus. ??clinical diagnosis code: ??788.99 ? Gross Description: ? 80ccs of clear yellow fluid (etoh added) were received and processed by selective cellular enhancement technique. ? End of Report [facility] 07/10/2013 07/11/2013 8:5 9 EDT Susanna Mackay MD PATHOLOGY ORDERABLES Performing Organization Address City/State/[facility] Co de Phone Number [facility] [address] [place] [address] documented in this encounter Visit Diagnoses Not on filedocumented in this encounter Care Teams Skydiving Instructor Relationship Specialty Start Date End Date Vasyl Whittaker DO [address] [place] [address] PCP - General 12/23/10 documented as of this encounter
--- OUTSIDE RECORDS SUMMARY | 2024-05-17 08:46 | XMS_ITS | Encounter Summary ---
Author Organization [facility] Address [address] [place] [address] Care Team Providers Care Scraper Operator Name Role Phone Panfilo, Vasyl Deborah Primary Care Provider +1- [phone] Encounter Details Date Type Department Care Team (Late st Contact Info) Description 10/29/2021 Lab Requisition [facility] Pathology & Laboratory Medicine - [facility] [address], [place] [address] Outr Resulting Lab, Provider Social History Tobacco [...] Date/Time Associated Diagnosis Comments HOLD SST Today 10/29/2021 13:15 EST HEPATITIS C AB W REFLEX TO HCV RNA BY PCR Today 10/29/2021 13:15 EST HEPATITIS B CORE ANTIBODY (TOTAL) Today 10/29/2021 13:15 EST HEPATITIS B SURFACE ANTIBODY Today 10/29/2021 13:15 EST HEPATITIS B SURFACE ANTIGEN Today 10/29/2021 13:15 EST documented in this encounter Results * HOLD SST (10/29/2021 13:15 EST) Hold Hold 10/29/2021 23:15 EST [facility] Blood VENOUS BLOOD / Unknown 10/29/2021 13:15 EST 10/29/2021 22:05 EST Provider Outr Resulting Lab LAB INFO SER VICE AND SUPPORT & PHONE RESULT Performing Organization Address [facility]/ZIP Co de Phone Number [facility] [address] [place] [address] * HEPATITIS B SURFACE ANTIBODY (10/29/2021 13:15 EST) Hep B Surface Ab, Quantitative <3.1 See Note mIU/mL 11/01/2021 10:34 [facility] Comment: Reference Range for Hep B Surface Ab, Quant: Positive: >= 10.0 mIU/mL Negative: ??< 10.0 mIU/mL Patient is presumed to not be immune to infection with Hepatitis B Virus. Hep B Surface Ab, Qualitative Negative See Note 11/01/2021 10:34 [facility] Comment: Reference Range for Hep B Surface Ab, Qual: Unvaccinated: ??Negative Vaccinated: ??Positive Blood VENOUS BLOOD / Unknown 10/29/2021 13:15 EST 10/29/2021 22:05 EST Provider Outr Resulting Lab CHEMISTRY & BLOOD GAS ORDERABLES Performing Organization Address [facility]/ZIP Co de Phone Number [facility] [address] [place] [address] * HEPATITIS B CORE ANTIBODY (TOTAL) (10/29/2021 13:15 EST) Hepatitis B Core Ab, Total Negative Negative 11/01/2021 11:15 EST [facility] Blood VENOUS BLOOD / Unknown 10/29/2021 13:15 EST 10/29/2021 22:05 EST Provider Outr Resulting Lab CHEMISTRY & BLOOD GAS ORDERABLES Performing Organization Address City/[facility]/ZIP Co de Phone Number [facility] [address] [place] [address] * HEPATITIS B SURFACE ANTIGEN (10/29/2021 13:15 EST) Hep B Surface Ag Negative Negative 11/01/2021 10:41 EST [facility] Blood VENOUS BLOOD / Unknown 10/29/2021 13:15 EST 10/29/2021 22:05 EST Provider Outr Resulting Lab CHEMISTRY & BLOOD GAS ORDERABLES [facility] [address] [place] [address] * HEPATITIS C AB W REFLEX TO HCV RNA BY PCR (10/29/2021 13:15 EST) Hep C Antibody Negative Negative 11/01/2021 10:27 EST [facility] Blood VENOUS BLOOD / Unknown 10/29/2021 13:15 EST 10/29/2021 22:05 EST Provider Outr Resulting Lab CHEMISTRY & BLOOD GAS ORDERABLES Performing Organization Address City/[facility]/ZIP Co de Phone Number [facility] [address] [place] [address] documented in this encounter Visit Diagnoses Not on filedocumented in this encounter Additional Health Concerns Infection Onset Date Last Indicated Resolved Time COVID-19 02/16/2022 02/16/2022 03/08/2022 22:1 5 EDT documented as of this encounter Care Teams Scraper Operator Relationship Specialty Start Date End Date Vasyl Whittaker DO [address] [place] [address] ALEJANDRO ANN [address] PCP - General 12/23/10 documented as of this encounter
--- OUTSIDE RECORDS SUMMARY | 2024-05-17 08:46 | XMS_ITS | Encounter Summary ---
Author Organization [facility] Address [address] [place] [address] Care Team Providers Care Financial Auditor Name Role Phone PanfiloVasyl roe Primary Care Provider +1- [phone] Encounter Details Date Type Department Care Team (Late st Contact Info) Description 10/29/2021 Lab Requisition [facility] Pathology & Laboratory Medicine - [facility] [address] [place], [place] [id number] Outr Resulting Lab, Provider Social History Tobacco [...] PROTEIN STUDY (UPEP WITH IMMUNOTYPING) PERFORMABLE Today 10/29/2021 13:15 EST PROTEIN, TOTAL, RANDOM, URINE Today 10/29/2021 13:15 EST URINE MONOCLONAL PROTEIN STUDY (UPEP WITH IMMUNOTYPING) Routine 10/29/2021 13:15 EST documented in this encounter Results * URINE MONOCLONAL PROTEIN STUDY (UPEP WITH IMMUNOTYPING) PERFORMABLE (10/29/2021 13:15 EST) Albumin, Urine % 16.2 N/A % 11/01/19 22 14:06 EST [facility] Globulins, Urine % 83.8 N/A % 11/01/2021 14:06 [facility] UPEP Comment See Comment 11/01/2021 14:06 [facility] Comment:Electrophoresis scre ening performed; Immunotyping to follow. See scanned/supplementary report. Immunotyping, Urine Current Interpretatio n: Negative for free monoclonal light chains. Reviewed by: Jaime Milan MD 11/01/2021 1347 11/01/2021 14:06 [facility] Total Protein, Urine <5 See Note mg/dL 11/01/2021 14:06 [facility] Comment: NOTE: Reference range has not been established for total protein concentration in random urine specimens. Urine URINE / Unknown 10/29/2021 1 3:15 EST 10/29/2021 22:15 EST Provider Outr Resulting Lab URINALYSIS O RDERABLES Performing Organization Address [facility] de Phone Number [facility] [address] [place] [address] * PROTEIN, TOTAL, RANDOM, URINE (10/29/2021 13:15 EST) Urine URINE / Unknown 10/29/2021 1 3:15 EST 10/29/2021 22:15 EST Provider Outr Resulting Lab URINALYSIS O RDERABLES Performing Organization Address [facility] de Phone Number [facility] [address] [place] [address] documented in this encounter Visit Diagnoses Not on filedocumented in this encounter Additional Health Concerns Infection Onset Date Last Indicated Resolved Time COVID-19 02/16/2022 02/16/2022 03/08/2022 22:1 5 EDT documented as of this encounter Care Teams Financial Auditor Relationship Specialty Start Date End Date Vasyl Whittaker DO [address] [place] [address] PCP - General 12/23/10 documented as of this encounter
--- OUTSIDE RECORDS SUMMARY | 2024-05-17 08:46 | XMS_ITS | Encounter Summary ---
Author Organization [facility] Address [address] [place] [address] Care Team Providers Care Alpaca Farmer Name Role Phone Vasyl Whittaker Primary Care Provider +1- [phone] Encounter Details Date Type Department Care Team (Late st Contact Info) Description 02/16/2022 Lab Requisition [facility] Pathology & Laboratory Medicine - [facility] [address] [place], [place] [id number] Outr Resulting Lab, Provider Social History Tobacco [...] Comments ZZCOVID-19 TEST [facility] PCR Today 02/16/2022 9:45 EDT COVID-19 TESTING Routine 02/16/2022 9:45 EDT documented in this encounter Results * COVID-19 TEST [facility] PCR (02/16/2022 9:45 EDT) Swab 02/16/2022 9:45 EDT 02/16/2022 22:20 EDT Provider Outr Resulting Lab MICROBIOLOGY - GENERAL ORDERABLES [facility] [address] [place] [address] * (ABNORMAL) COVID-19 TESTING (02/16/2022 9:45 EDT) COVID-19 rt-PCR Result Positive( AA) Negative 02/17/2022 17:52 EDT [facility] Comment: This test has not [...] performed using the sanya SARS-CoV-2 assay ([employer] on the Sanya 6800 System Performing Lab Sanya 6800 [facility] 02/17/2022 17:52 EDT [facility] Swab 02/16/2022 9:45 EDT 02/16/2022 22:20 EDT Provider Outr Resulting Lab MICROBIOLOGY - GENERAL ORDERABLES [facility] [address] [place] [address] documented in this encounter Visit Diagnoses Not on filedocumented in this encounter Additional Health Concerns Infection Onset Date Last Indicated Resolved Time COVID-19 02/16/2022 02/16/2022 03/08/2022 22:1 5 EDT documented as of this encounter Care Teams Alpaca Farmer Relationship Specialty Start Date End Date Vasyl Whittaker DO [address] [place] [address] PCP - General 12/23/10 documented as of this encounter
--- OUTSIDE RECORDS SUMMARY | 2024-05-17 08:46 | XMS_ITS | Encounter Summary ---
Author Organization [facility] Address [address] [place] [address] Care Team Providers Care Bobcat Operator Name Role Phone PanfiloVasyl roe Primary Care Provider +1- [phone] Encounter Details Date Type Department Care Team (Late st Contact Info) Description 12/22/2020 Lab Requisition [facility] Pathology & Laboratory Medicine - [facility] [address] [place], [place] [address] Outr Resulting Lab, Provider Social History Tobacco [...] INCLUDES QUANTITATION OF MONOCLONAL SPIKE PERFORMABLE Today 12/22/2020 10:24 EDT DOUBLE STRANDED DNA ANTIBODY, IGG Routine 12/22/2020 10:24 EDT C3 COMPLEMENT Routine 12/22/2020 10:24 EDT C4 COMPLEMENT Routine 12/22/2020 10:24 EDT SPEP, INCLUDES QUANTITATION OF MONOCLONAL SPIKE Routine 12/22/2020 10:24 EDT PROTEIN, TOTAL Today 12/22/2020 10:24 EDT documented in this encounter Results * SPEP, INCLUDES QUANTITATION OF MONOCLONAL SPIKE PERFORMABLE (12/22/2020 10:24 EDT) Albumin % 61.6 55.8 - 66.1 % 12/23/2020 13:04 EDT [facility] Alpha-1 % 3.4 2.9 - 4.9 % 12/23/2020 13:04 EDT [facility] Alpha-2 % 9.5 7.1 - 11.8 % 12/23/2020 13:04 EDT [facility] Beta % 10.6 8.4 - 13.1 % 12/23/2020 13:04 EDT [facility] Gamma % 14.9 11.1 - 18.8 % 12/23/2020 13:04 EDT [facility] SPEP Comment No apparent monoclonal protein seen on serum electrophoresis 12/23/2020 13:04 T [facility] Comment:See scanned/suppleme ntary report. Total Protein 6.4 6.3 - 8.2 g/dL 12/23/2020 13:04 EDT [facility] Blood VENOUS BLOOD / Unknown 12/22/2020 10:24 EDT 12/22/2020 15:43 EDT Provider Outr Resulting Lab CHEMISTRY & BLOOD GAS ORDERABLES Performing Organization Address [facility]/ZIP Co de Phone Number [facility] [address] [place] [address] * PROTEIN, TOTAL (12/22/2020 10:24 EDT) Blood VENOUS BLOOD / Unknown 12/22/2020 10:24 EDT 12/22/2020 15:43 EDT Provider Outr Resulting Lab CHEMISTRY & BLOOD GAS ORDERABLES Performing Organization Address City/[facility]/ZIP Co de Phone Number [facility] [address] [place] [address] * ANTI DNA (DOUBLE STRANDED) (12/22/2020 10:24 EDT) Anti-DNA (Double Stranded) <12.3 <30.0 IU/mL 12/24/2020 13:36 EDT [facility] Comment: ? Negative: ??<30.0 IU/mL ? Borderline Positive: ??30.0 - 75.0 IU/mL ? Positive: ??>75.0 IU/mL Results were obtained with the [employer] dsDNA SC TABATHA assay on the [employer] DSX. Blood VENOUS BLOOD / Unknown 12/22/2020 10:24 EDT 12/22/2020 15:43 EDT Provider Outr Resulting Lab IMMUNOLOGY A ND SEROLOGY ORDERABLES Performing Organization Address [facility] de Phone Number [facility] [address] [place] [address] * C3 COMPLEMENT (12/22/2020 10:24 EDT) C3 Complement 110 81 - 157 mg/dL 12/23/2020 9:11 EDT [facility] Blood VENOUS BLOOD / Unknown 12/22/2020 10:24 EDT 12/22/2020 15:43 EDT Provider Outr Resulting Lab CHEMISTRY & BLOOD GAS ORDERABLES Performing Organization Address [facility] de Phone Number [facility] [address] [place] [address] * C4 COMPLEMENT (12/22/2020 10:24 EDT) C4 Complement 23 13 - 39 mg/dL 12/23/2020 9:11 EDT [facility] Blood VENOUS BLOOD / Unknown 12/22/2020 10:24 EDT 12/22/2020 15:43 EDT Provider Outr Resulting Lab CHEMISTRY & BLOOD GAS ORDERABLES Performing Organization Address [facility] Phone Number [facility] [address] [place] [address] documented in this encounter Visit Diagnoses Not on filedocumented in this encounter Additional Health Concerns Infection Onset Date Last Indicated Resolved Time COVID-19 02/16/2022 02/16/2022 03/08/2022 22:1 5 EDT documented as of this encounter Care Teams Bobcat Operator Relationship Specialty Start Date End Date Vasyl Whittaker, [address] [place] [address] ALEJANDRO [place] [address] PCP - General 12/23/10 documented as of this encounter
--- OUTSIDE RECORDS SUMMARY | 2024-05-17 08:46 | XMS_ITS | Referral Summary ---
Author Organization [facility] Address [address] [place] [address] Care Team Providers Care Cms Expert Name Role Phone Vasyl Whittaker Primary Care Provider +1- [phone] Social History Tobacco Use Types Packs/Day Years Used Date Smoking Tobacco: Never Assessed Interpersonal Safety Answer Date Record ed Physically Hurt Never 04/26/2020 Verbally Threaten Not on file 04/26/2020 Sex and Gender Information Value Date Recorded Sex Assigned at Not on file Gender Identity Not on file Sexual Orientation Not on file Plan of Treatment Not on file Procedures Procedure Name Priority Date/Time Associated Diagnosis Comments HEPATITIS C AB W REFLEX TO HCV RNA BY PCR Today 10/29/2021 13:15 EST from Last 3 Months or Most Recently Relevant to Health Maintenance Results * HEPATITIS C AB W REFLEX TO HCV RNA BY PCR (10/29/2021 13:15 EST) Hep C Antibody Negative Negative 11/01/2021 10:27 EST [facility] Blood VENOUS BLOOD / Unknown 10/29/2021 13:15 EST 10/29/2021 22:05 EST Provider Outr Resulting Lab CHEMISTRY & BLOOD GAS ORDERABLES [facility] [address] [place] [address] from Last 3 Months or Most Recently Relevant to Health Maintenance Care Teams Cms Expert Relationship Specialty Start Date End Date Vasyl Whittaker DO [address] [place] [address] [address] [place], [place] [address] [facility] - General 12/23/10
--- OUTSIDE RECORDS SUMMARY | 2024-05-17 08:46 | XMS_ITS | Encounter Summary ---
Author Organization [facility] Address [address] [place] [address] Care Team Providers Care Pond Scaler Name Role Phone Vasyl Whittaker DO Primary Care Provider +1- [phone] Encounter Details Date Type Department Care Team (Late st Contact Info) Description 03/07/[address] [facility] Laboratory Services - [facility] ([facility] [address] [place], [place] [id number] Marisa Vega MD [address] [place] [id number] Social History Tobacco Use Types Packs/Day Years Used Date Smoking Tobacco: Never Assessed Sex and Gender Information Value Date Recorded Sex Assigned at Not on file Gender Identity Not on file Sexual Orientation Not on file documented as of this encounter Plan of Treatment Not on file documented as of this encounter Procedures Procedure Name Priority Date/Time Associated Diagnosis Comments SURGICAL PATHOLOGY Routine 03/07/2013 15 :12 EDT documented in this encounter Results * SURGICAL PATHOLOGY (03/07/2013 15:12 EDT) Pathology Report: SURGICAL PATHOLOGY REPORT Reports generated via electronic interface contain original data; however they are lacking the format of the original report. Caution should be taken when reading/interpreti ng unformatted reports. Name: ? SHELTON CATES ? Accession #: ? [id number] ? : ? 1960 (Age: 53) ??F ? Collect Date: ? 03/07/2013 ? Location: ? [facility] ? Receive Date: ? 03/08/2013 ? Provider: MARISA VEGA MD Copy to: VASYL WHITTAKER DO ? 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 - ??Fallopian tube with no specific pathologic features. ? Document reviewed and electronically signed by: CLAUDIA BURNETT MD Report ??Date: 03/12/2013 16:07 By the signature above, the attending physician certifies that he/she has personally conducted a gross and/or microscopic examination of the described specimens and rendered or confirmed the above diagnosis. Specimen(s) Received: Right ovary Clinical History: RLQ pain, 1.3 cm ovarian cyst Gross Description: ? Received in formalin labelled with proper patient identification (initials Frank MarliPreston) A-right ovary is a right ovary with attached previously disrupted cystic structure (1.5 x 1.5 x 1.5 cm). The outer surface is granular. The cyst is multiloculated and contains no fluid. The inner lining is slightly rough with moderate adhesions. The cyst wall is 0.2 cm in thickness. The attached ovary and fallopian tube have unremarkable cut surface. Quiller Operator sections are submitted as [address] Matthew Garzon 03/08/2013 03:49 PM End of Report [facility] 03/07/2013 15:1 2 EDT 03/08/2013 15:12 EDT Marisa Vega MD PATHOLOGY ORDERABLES [facility] [address] [place] [address] documented in this encounter Visit Diagnoses Not on filedocumented in this encounter Care Teams Pond Scaler Relationship Specialty Start Date End Date Vasyl Whittaker DO [address] [place] [address] PCP - General 12/23/10 documented as of this encounter
[2024-05-17 08:48] VITALS: BP 158/96; PULSE 61; RESP 15; TEMP 36.7; O2SAT 98
--- NOTE | 2024-05-17 08:53 | ED.GENADUL_ITS ---
Discharge Plan Disposition Patient Disposition: Home Condition: Stable Discharge Details Clinical Impression: Osteoarthritis of left shoulder Primary Care Provider: Anthony Samaniego ED Provider: Steve Isidro Home Meds and New Rx's Prescriptions: Continued triamcinolone acetonide 0.1 % cream 1 applic topical BID PRN (Reason: leg rash) Qty: 80 0RF lactulose 10 GM/15 ML solution 30 g PO BID PRNQty: 500 Rx Instructions: maximum dose is 60 gm (no more than twice/day) gabapentin 300 mg capsule 300 mg PO TID hydroxychloroquine 200 mg tablet 400 mg PO DAILY cevimeline 30 mg capsule 1 cap PO TID cyclobenzaprine 5 mg tablet 5 mg PO TID PRN (Reason: muscle spasm) Qty: 6 0RF ibuprofen 800 mg tablet 800 mg PO TID Discharge Instructions Instructions: Osteoarthritis Additional Instructions: You were seen in the emergency department for your left shoulder pain, is a possibility of a rotator cuff tendon injury your x-ray does show some osteoarthritis. You have tenderness at the trapezius muscle consistent with musculoskeletal pain. Please take consistent dosing of Tylenol and ibuprofen, I am sending you a referral to follow-up with orthopedics, they may want to perform joint injections or further advanced imaging to evaluate your rotator cuff. Please ice the area, continue range of motion exercises, I am sending you with a referral to physical therapy. Please return to the emergency department for any signs of neurovascular compromise of the right upper extremity, rapidly increasing nodular swelling, fever. Stand Alone Forms: Physical Therapy Referral Referrals: [facility] [Provider Group] Anthony Samaniego MD [Primary Care Provider] - Discharge Data Discharge Date/Time-TO BE ENTERED AT DEPARTURE: 05/17/24 10:49 HPI General Date/Time Provider Initiated Documentation: 05/17/24 08:53 . HPI Narrative: 64 year-old female presents to ED today by POV/ambulating with a chief complaint of left shoulder pain worsening over 1 month, feels a prominence to her distal clavicle, concerned with melanoma removed from the area and has not followed up with scheduled axillary lymph node ultrasound from her medical history with onset 1 month. Quality described as soreness with movement, no radiation to numbness/tingling, inability to move arm, skin changes, neck pain endorsed to a mild degree laterally. Severity is described as moderate. Palliating factors include nothing specific attempted. Provoking factors include nothing specific. Patient not anticoagulated. Related Data Home Medications ?Medication ?Instructions ?Recorded ?Confirmed lactulose 10 gram/15 mL oral 30 g PO BID PRN #500 mL 04/01/15 05/17/24 solution cevimeline 30 mg capsule 1 cap PO TID 10/15/19 05/17/24 gabapentin 300 mg capsule 300 mg PO TID 10/15/19 05/17/24 hydroxychloroquine 200 mg tablet 400 mg PO DAILY 10/15/19 05/17/24 cyclobenzaprine 5 mg tablet 5 mg PO TID PRN muscle spasm #6 11/01/21 05/17/24 tabs triamcinolone acetonide 0.1 % 1 applic topical BID PRN leg rash 09/06/23 05/17/24 topical cream #80 grams ibuprofen 800 mg tablet 800 mg PO TID 05/17/24 05/17/24 Previous Rx's ?Medication ?Instructions ?Recorded cyclobenzaprine 5 mg tablet 5 mg PO TID PRN muscle spasm #6 11/01/21 tabs triamcinolone acetonide 0.1 % 1 applic topical BID PRN leg rash 09/06/23 topical cream #80 grams Allergies Allergy/AdvReac Type Severity Reaction Status Date / Time gluten AdvReac Severe Severe Verified 05/17/24 08:50 constipation levofloxacin (From Levaquin) AdvReac Severe Contraindic Verified 05/17/24 08:50 ated General Stated Complaint: GenMedical DIANA: 3 Review of Systems All systems reviewed & are unremarkable except as noted in HPI and below Exam Narrative Exam Narrative: GENERAL APPEARANCE: Well-nourished, non-toxic, awake and alert, atraumatic, no acute distress. SKIN: Warm, pink, dry, intact, without rashes/lesions/ulcerations. HEAD: Normocephalic, atraumatic, normal hair distribution for gender/age. EYES: Normal conjunctiva, no exudates on lids/lashes. ENT: Nares patent, no circumoral cyanosis, no facial swelling NECK: Supple, trachea midline, painless cervical ROM. LUNGS/CHEST: Non-labored respirations, normal A/P diameter, symmetrical expansion, no chest wall deformity HEART (CV/PV): Regular rate, no peripheral edema, no JVD. ABDOMEN: Soft, non-distended, no guarding. MSK: Normal ROM, no swelling/deformity to bilateral UEs or LEs, moving all extremities without weakness, no cyanosis, spine midline without tenderness, normal curvature. L UE: speeds and empty can positive at the left shoulder, there is a mild prominence over the distal clavicle questionable for very mild AC separation, left radial pulse 2+, no swelling or skin changes, tenderness in the left trapezius muscle. NEURO: Mental Status AAOx4 - alert to person, place, time, events No facial droop, no forehead involvement. Motor: No focal weakness - strength 5/5 in bilateral UEs and LEs, proximal and distal, symmetric. Sensory: sensation intact to light touch globally. Gait normal: patient ambulated without ataxia into ED room. PSYCH: euthymic, cooperative, pleasant, appropriate speech Course Vital Signs Vital signs: Vital Signs Temperature 36.7 C 05/17/24 08:43 Pulse 61 05/17/24 08:43 Respiratory Rate 15 05/17/24 08:43 Blood Pressure 158/96 H 05/17/24 08:43 Pulse Oximetry 98 05/17/24 08:43 Temperature 36.7 C 05/17/24 08:48 Temperature Source Oral 05/17/24 08:48 Pulse 61 05/17/24 08:48 Respiratory Rate 15 05/17/24 08:48 Respiratory Effort Normal 05/17/24 08:49 Blood Pressure 158/96 H 05/17/24 08:48 Blood Pressure Position Sitting 05/17/24 08:48 Pulse Oximetry 98 05/17/24 08:48 Oxygen Delivery Method Room Air 05/17/24 08:48 Oxygen Flow Rate 0 05/17/24 08:48 Pain Level 8 05/17/24 08:48 Medical Decision Making This dictation utilizes [id number] dictation software and may contain unedited grammatical errors. 64 year-old female presents to ED today by POV/ambulating with a chief complaint of left shoulder pain worsening over 1 month, feels a prominence to her distal clavicle, concerned with melanoma removed from the area and has not followed up with scheduled axillary lymph node ultrasound from her medical history with onset 1 month. Quality described as soreness with movement, no radiation to numbness/tingling, inability to move arm, skin changes, neck pain endorsed to a mild degree laterally. Severity is described as moderate. Palliating factors include nothing specific attempted. Provoking factors include nothing specific. Patients' medical history: Malignant melanoma, fibromyalgia, anxiety. Family and social history: Nothing specific. Pertinent exam findings / vital signs include speeds and empty can positive at the left shoulder, there is a mild prominence over the distal clavicle questionable for very mild AC separation, left radial pulse 2+, no swelling or skin changes, tenderness in the left trapezius muscle. Differential / pathologies of concern include fracture, AC separation, arthritis, rotator cuff arthropathy, less likely bone mets- has follow-up planned for lymph biopsy. Diagnostic studies of: -XR L shoulder, shows mild degenerative changes consistent with osteoarthritis. Interventions of: -Counseled on physical therapy and adequate dosing Tylenol and ibuprofen, provided Ortho referral for possible evaluation of rotator cuff arthropathy. ED Course/Assessment/Plan: 64-year-old female presents with left shoulder pain ongoing for 1 month, has high anxiety over the condition as she had a malignant melanoma in the area removed quite sometime ago and remote history, has a lymph node biopsy scheduled for the left axilla, feeling a bony prominence and having anxiety ever bony mets, this appears more to be like a mild AC separation as there is also the similar bone morphology on the other side, speeds and empty can are positive suspicious for rotator cuff arthropathy but the patient does have osteoarthritis on x-ray, counseled on need for possible MRI in the future, strict return criteria for constitutional symptoms or neurovascular compromise. Findings not consistent with bony lesion, neurovascular compromise, fracture. Disposition of osteoarthritis of left shoulder. Patient verbalized understanding of the plan and return to ED criteria and engaged in shared decision making. Medical Records Medical records reviewed: Yes I reviewed the patient's medical records. Imaging Data Radiologic Study: Attestation: I personally reviewed and interpreted this imaging study as follows: Imaging: X-Ray Radiologist's impression: EXAM: XR SHOULDER LT COMPLETE 2+V CLINICAL HISTORY: L shoulder pain. TECHNIQUE: 2D digital imaging was performed. Three views. COMPARISON: CR XR SHOULDER RT COMPLETE 2+V from 09/29/2021 FINDINGS: BONES: No acute fracture is present. No bony destructive lesion is seen. JOINTS: No dislocation present. Mild spurring at AC joint. Minimal spurring at glenoid. Glenohumeral joint space is maintained. SOFT TISSUE: Normal. IMPRESSION: Mild degenerative changes. Quality:[facility] Health Related Social Needs: No Data to Display PFSH All Active Problems (Updated 05/17/24 @ 10:26 by VICKEY Vargas) Osteoarthritis of left shoulder (Acute) Neoplasm of axillary lymph nodes (Acute) History of skin cancer (Acute) left upper arm Axillary lymphadenopathy (Acute) Inguinal lymphadenopathy (Acute) Abdominal bloating (Acute) Impacted cerumen, right ear (Acute) Bursitis of shoulder, right (Acute) Fibromyalgia (Acute) Morbid obesity (Acute) Sjoegren syndrome (Acute ~06/28/18) Surgical History section X 2 [place] [facility] [place] [facility] [place] History Father , 66 Heart disease Hypertension Stroke Mother , 66 Colon cancer Sister No problems noted. Sister Asthma Hypertension Brother No problems noted. Brother No problems noted. Son No problems noted. Daughter No problems noted. 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 Pets and animals: No Sexually active: Yes Do you think of yourself as: straight/heterosexual Current gender identity: female What is your relationship status?: How often do you talk on the phone with friends or family?: three or more times per week How often do you get together with friends or relatives?: three or more times per week How often do you attend gnosticism or orthodoxy services?: 4 or more times per year Do you belong to any clubs or organized social groups?: no Panel score (0-1 are the most socially isolated patients): 3 What type of physical activity do you participate in: other Details: treadmill/gym Duration: 30-45 minutes/day Frequency: 5-6 times per week Emily/Mormonism: Jainism Agree to transfusion: Yes Seatbelt use: always Helmet use: Yes Helmet use: always Drive intox or ride w/intox tower 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
--- NOTE | 2024-05-17 09:00 | DI.RAD_ITS ---
Exam(s) XR SHOULDER LT COMPLETE 2+V EXAM: XR SHOULDER LT COMPLETE 2+V CLINICAL HISTORY: L shoulder pain. TECHNIQUE: 2D digital imaging was performed. Three views. COMPARISON: CR XR SHOULDER RT COMPLETE 2+V from 09/29/2021 FINDINGS: BONES: No acute fracture is present. No bony destructive lesion is seen. JOINTS: No dislocation present. Mild spurring at AC joint. Minimal spurring at glenoid. Glenohumer al joint space is maintained. SOFT TISSUE: Normal. IMPRESSION: Mild degenerative changes. DATA REPOSITORY: RADIATION DOSE DELIVERED:
[2024-05-17] MEDS: Ibuprofen 400 MG TAB PO (10:46)
[2024-05-17] MEDS: Acetaminophen 325 MG TAB 650 MG PO (10:46)
[2024-05-17 10:47] VITALS: RESP 15
== END 2024-05-17 10:49 | disposition home or self-care (01) ==
PROVIDERS: Emergency Provider Physician Assistant; PCP Family Medicine
DX: M19.012 Primary osteoarthritis, left shoulder (principal)
CPT/HCPCS: 99283; 73030

== ENCOUNTER 2024-07-24 01:34 | Outpatient (CLI) | payer BC, SELFPAY ==
[2024-07-24 08:40] LABS: Folate > 20.0 ng/mL (8.6-20.0); TSH 2.45 uIU/mL (0.36-3.74); Vitamin B12 449 pg/mL (193-986)
== END 2024-07-24 01:35 | disposition home or self-care (01) ==
PROVIDERS: PCP Family Medicine; Visit Provider Internal Medicine
DX: M35.00 Sjogren syndrome, unspecified (principal); R01.1 Cardiac murmur, unspecified; R71.8 Other abnormality of red blood cells
CPT/HCPCS: 36415; 82607; 82746; 84443

== ENCOUNTER 2024-08-07 00:46 | Outpatient (CLI) | payer BC, SELFPAY ==
[2024-08-07] MEDS: Gadoterate meglumine 20 ML SYRINGE 15 ML IVP (08:59)
--- NOTE | 2024-08-07 09:15 | DI.MRI_ITS ---
Exam(s) MR UPPER EXTREMITY LT WO/W EXAM: MR UPPER EXTREMITY LT WO/W CLINICAL HISTORY: F/u increasing axillary pain,axillary lymphadenopathy,r59.0. TECHNIQUE: Multiplanar multisequence MRI was performed. Large field of view employed to evaluate th e axilla. Postcontrast imaging with 15 mL Dotarem IV. COMPARISON: Plain films of the left shoulder 17 May 2024 Ultrasound of the axilla [address] 27 December 2023 FINDINGS: BONES: There is no fracture or contusion pattern. JOINTS:The acromioclavicular joint shows minimal degenerative changes.. The glenohumeral joint shows a small amount of fluid. TENDONS: Supraspinatus: Some high signal present which could indicate tendinitis or partial tear. Infraspinatus: High signal which could indicate tendinitis versus partial tear. Some fluid seen exte nding along infraspinatus muscle and tendon. Subscapularis: Tear with retraction. Teres Minor: Unremarkable. Biceps and Garber: Biceps tendon subluxed medially. MUSCLES: Unremarkable. GLENOID LABRUM: Shows high signal in the superior labrum which could represent tear versus degenerati on SOFT TISSUES: No evidence of axillary mass. Few small lymph nodes are noted. No pathologically enla rged lymph nodes with fatty bronwyn are maintained. OTHER: Subacromial and subdeltoid bursae knee shows small amount of fluid.. Fluid in subcoracoid bu rsa extending along subscapularis muscle and tendon. The new coronal irregular coronal Fabiola IMPRESSION: No evidence of axillary adenopathy. Normal bone marrow signal. Exam was performed to evaluate the axilla abnormalities in the shoulder are noted. Findings suspicio us for partial tear of the supraspinatus tendon. Full-thickness tear with retraction of the infraspi natus tendon. Biceps tendon is subluxed medially and not well visualized proximally. Infraspinatus tendinitis versus partial tear. DATA REPOSITORY:
== END 2024-08-07 01:06 ==
LOC: DI 00:46
PROVIDERS: PCP Family Medicine; Visit Provider Surgery
DX: R59.0 Localized enlarged lymph nodes (principal)
CPT/HCPCS: 73220

== ENCOUNTER 2024-08-28 02:30 | Outpatient (CLI) | payer BC, SELFPAY ==
[2024-08-28 12:56] LABS: Abs Immature Grans 0.01 10^3/uL (0.0-0.06); Absolute Basophil Count 0.05 10^3/uL (0.0-0.2); Absolute Lymphocyte Count 1.68 10^3/uL (1.2-3.4); Absolute Monocyte Count 0.38 10^3/uL (0.1-0.8); Absolute Neutrophil Count 3.07 10^3/uL (1.2-6.7); Basophils % 0.9 %; Eosinophils % 1.9 %; HCT 38.5 % (36.0-46.0); HGB 12.8 g/dL (11.2-15.7); Immature Grans % 0.2 %; Lymphocytes % 31.8 %; MCH 33.2 pg (27.0-33.0); MCHC 33.2 % (32.0-36.0); MCV 100 fL (80-95); MPV 10.6 fL (8.0-11.0); Monocytes % 7.2 %; Platelet Count 236 10^3/uL (130-400); RBC 3.86 10^6/uL (3.93-5.22); RDW 12.6 % (11.7-14.6); RDW-SD 46.5 fL; WBC 5.29 10^3/uL (4.4-10.8)
[2024-08-28 17:57] LABS: ALT 23 U/L (14-59); AST 22 U/L (15-37); CREATININE 1.1 mg/dL (0.55-1.02); Estimated GFR 56.11 (mL/min/1.73m2); Folate > 20.0 ng/mL (8.6-20.0); Vitamin B12 548 pg/mL (193-986)
[2024-08-28 22:41] LABS: Rheumatoid Factor <8.6 IU/mL (<12.0)
[2024-08-29 11:21] LABS: C3 Complement 113 mg/dL (81-157); C4 Complement 21 mg/dL (13-39)
[2024-08-29 13:41] LABS: Albumin g/dL 4.5 g/dL (3.6-5.2); Total Protein 7.1 g/dL (6.3-8.2)
== END 2024-08-28 02:31 | disposition home or self-care (01) ==
PROVIDERS: PCP Family Medicine; Visit Provider Internal Medicine
DX: M25.511 Pain in right shoulder (principal); G89.29 Other chronic pain; M25.512 Pain in left shoulder; M54.50 Low back pain, unspecified; Z79.1 Long term (current) use of non-steroidal anti-inflammatories (NSAID); M35.00 Sjogren syndrome, unspecified; M75.80 Other shoulder lesions, unspecified shoulder; R71.8 Other abnormality of red blood cells; R01.1 Cardiac murmur, unspecified
CPT/HCPCS: 36415; 82565; 82595; 82607; 82746; 84165; 84443; 84450; 84460; 85025; 86160; 86431

== ENCOUNTER 2024-11-06 04:45 | Outpatient (CLI) | payer BC, SELFPAY ==
[2024-11-06 09:03] LABS: Abs Immature Grans 0.01 10^3/uL (0.0-0.06); Absolute Basophil Count 0.02 10^3/uL (0.0-0.2); Absolute Lymphocyte Count 1.33 10^3/uL (1.2-3.4); Absolute Neutrophil Count 2.01 10^3/uL (1.2-6.7); Basophils % 0.5 %; Eosinophils % 2.6 %; HCT 36.8 % (36.0-46.0); Immature Grans % 0.3 %; Lymphocytes % 34.4 %; MCH 32.7 pg (27.0-33.0); MCHC 32.6 % (32.0-36.0); MCV 100 fL (80-95); MPV 10.3 fL (8.0-11.0); Monocytes % 10.3 %; Neutrophils % 51.9 %; Platelet Count 224 10^3/uL (130-400); RBC 3.67 10^6/uL (3.93-5.22); RDW 12.7 % (11.7-14.6); RDW-SD 47.2 fL; WBC 3.87 10^3/uL (4.4-10.8)
[2024-11-06 09:24] LABS: ALT 20 U/L (14-59); AST 19 U/L (15-37); Albumin 3.7 g/dL (3.4-5.0); Alkaline Phosphatase 70 U/L (46-116); Anion Gap 3.9 mmol/L (3-11); BUN 18 mg/dL (7-18); Bilirubin, Total 0.38 mg/dL (0.2-1.0); CO2 31.1 mmol/L (21.0-32.0); Calcium 8.9 mg/dL (8.5-10.1); Chloride 108 mmol/L (98-107); Estimated GFR 62.91 (mL/min/1.73m2); Glucose 91 mg/dL (74-106); Potassium 4.2 mmol/L (3.5-5.1); Sodium 143 mmol/L (136-145)
== END 2024-11-06 04:46 | disposition home or self-care (01) ==
PROVIDERS: PCP Family Medicine; Visit Provider Internal Medicine
DX: D64.9 Anemia, unspecified (principal); D75.89 Other specified diseases of blood and blood-forming organs; D53.9 Nutritional anemia, unspecified; K63.8219 Small intestinal bacterial overgrowth, unspecified; D72.819 Decreased white blood cell count, unspecified; R60.0 Localized edema; R01.1 Cardiac murmur, unspecified
CPT/HCPCS: 36415; 80053; 85025

== ENCOUNTER 2024-11-22 07:43 | Outpatient (RCR) | payer BC, SELFPAY | END 2024-11-22 23:59 | disposition home or self-care (01) | LOC: CARDOPNVT 07:43 | PROVIDERS: PCP Family Medicine; Visit Provider Internal Medicine Cardiovascular Disease | DX: R00.2 Palpitations (principal) | CPT/HCPCS: 93225 ==

== ENCOUNTER 2024-11-23 10:03 | Outpatient (RCR) | payer BC, SELFPAY ==
--- NOTE | 2024-11-28 08:50 | W.HOLTRPT ---
Date of service: 11/28/24 Time of Service: 08:51 Holter Monitor Report Referring Provider:: Anthony Samaniego Indications:: Palpitations Holter Monitor Note: This is a 48-hour Holter monitor. Rhythm throughout was sinus with an average heart of 62. Minimum was 45, maximum 130. There were occasional atrial and ventricular ectopic beats. There was no atrial fibrillation, no high-grade AV block, no pauses greater than 3 seconds, no SVT. Symptoms were reported which had no correlation to any dysrhythmia
== END 2024-12-23 23:59 | disposition home or self-care (01) ==
LOC: CARDOPNVT 10:03
PROVIDERS: PCP Family Medicine; Visit Provider Internal Medicine Cardiovascular Disease
DX: R00.2 Palpitations (principal)
CPT/HCPCS: 93227; 93226

== ENCOUNTER 2024-12-04 03:34 | Outpatient (CLI) | payer BC, SELFPAY ==
--- NOTE | 2024-12-04 | DI.MAMMO_ITS ---
Exam(s) MAMMO SCREENING EXAM: MAMMO SCREENING CLINICAL HISTORY: Screening, Z12.31 TECHNIQUE: Bilateral full field digital CC and MLO mammographic images were obtained with 3D tomosyn thesis and utilizing computer aided detection (CAD). COMPARISON: Available for comparison. FINDINGS: Masses/Architectural Distortion: There are no suspicious masses or areas of architectural distortion. Microcalcifications: No suspicious pleomorphic-type are seen. Skin Thickening/Nipple Retraction: None. IMPRESSION: 1. No significant interval change with no specific features of malignancy noted. 2. Unless there is more urgent need, screening mammography is recommended, as per [place] [employer] guidelines. BI-RADS Category 1 - Negative Breast Density - Category A - Almost entirely fatty Breast density category C or D implies that the patient has dense breast tissue. Dense breast tissue is very common and is not abnormal but dense breast tissue can make it harder to find cancer on a ma mmogram. Also, dense breast tissue may increase their breast cancer risk. This information about the result of the mammogram report was provided to the patient to raise their awareness. Use this report when you speak with the patient about their risks for breast cancer, which includes their family hist ory. At that time, you may recommend for more screening tests (Ultrasound or MRI) as they might be us eful based on their risk. A negative radiographic report should not delay biopsy if a dominant or clinically suspicious mass is present. Up to ten percent of cancers are not identified on mammography. A negative report may reinforce clinical impression. Adenosis and dense breasts may obscure an underlying neoplasm. False positive reports average 6 to 10%. Patient will receive a letter notifying them of these results.
== END 2024-12-04 03:54 ==
LOC: DI 03:34
PROVIDERS: PCP Family Medicine; Visit Provider Obstetrics & Gynecology
DX: Z12.31 Encounter for screening mammogram for malignant neoplasm of breast (principal); R92.313 Mammographic fatty tissue density, bilateral breasts
CPT/HCPCS: 77063; 77067

== ENCOUNTER 2024-12-25 02:51 | Outpatient (CLI) | payer MEDICARE, BC, SELFPAY ==
[2024-12-25 08:11] LABS: Abs Immature Grans 0.01 10^3/uL (0.0-0.06); Absolute Basophil Count 0.04 10^3/uL (0.0-0.2); Absolute Lymphocyte Count 1.42 10^3/uL (1.2-3.4); Absolute Monocyte Count 0.41 10^3/uL (0.1-0.8); Absolute Neutrophil Count 1.88 10^3/uL (1.2-6.7); Eosinophils % 2.6 %; HCT 37.1 % (36.0-46.0); Immature Grans % 0.3 %; Lymphocytes % 36.8 %; MCH 32.6 pg (27.0-33.0); MCHC 32.3 % (32.0-36.0); MCV 101 fL (80-95); MPV 10.5 fL (8.0-11.0); Monocytes % 10.6 %; Neutrophils % 48.7 %; Platelet Count 223 10^3/uL (130-400); RBC 3.68 10^6/uL (3.93-5.22); RDW 12.9 % (11.7-14.6); RDW-SD 47.9 fL; WBC 3.86 10^3/uL (4.4-10.8)
[2024-12-25 08:50] LABS: ALT 22 U/L (14-59); AST 19 U/L (15-37); Albumin 3.6 g/dL (3.4-5.0); Alkaline Phosphatase 75 U/L (46-116); Anion Gap 8.1 mmol/L (3-11); BUN 19 mg/dL (7-18); Bilirubin, Total 0.4 mg/dL (0.2-1.0); CO2 31.9 mmol/L (21.0-32.0); Calcium 9.1 mg/dL (8.5-10.1); Chloride 106 mmol/L (98-107); Estimated GFR 62.91 (mL/min/1.73m2); Glucose 77 mg/dL (74-106); Potassium 3.9 mmol/L (3.5-5.1); Sodium 146 mmol/L (136-145); Total Protein 6.9 g/dL (6.4-8.2)
== END 2024-12-25 02:52 | disposition home or self-care (01) ==
PROVIDERS: PCP Family Medicine; Visit Provider Internal Medicine
DX: R60.0 Localized edema (principal); R01.1 Cardiac murmur, unspecified; D75.89 Other specified diseases of blood and blood-forming organs; D53.9 Nutritional anemia, unspecified; K63.8219 Small intestinal bacterial overgrowth, unspecified; D72.819 Decreased white blood cell count, unspecified
CPT/HCPCS: 36415; 80053; 85025

== ENCOUNTER 2025-01-31 06:53 | Day surgery (SDC) | payer MEDICARE, BC, SELFPAY ==
--- NOTE | 2025-01-30 16:35 | W.PREOPHP ---
Assessment and Plan Assessment and plan (1) Encounter for screening colonoscopy: Status: Acute Assessment and plan: We reviewed the plan for another screening colonoscopy and EGD today. Ai had the chance to ask any new questions. We can proceed with the EGD and colonoscopy as scheduled. History of Present Illness Narrative: Ai is 64 years old, and she is overdue for screening colonoscopy. Her last one was in 2017, this was performed at [facility], and demonstrates some diverticulosis. She reports a mother with a history of colon cancer, and therefore she is beyond the 5-year screening interval at this point. She denies any melena or hematochezia. She does complain of a constant bloating sensation, and new onset of what she describes as her heart beating in her chest after eating. She carries a diagnosis of celiac disease in addition to Sjogren syndrome. She tells me that she is also been treated for small intestinal bacterial overgrowth without any improvement of her symptoms. She did undergo an EGD in 2012 that demonstrated a hiatal hernia. Since her last office encounter, there have been no major changes with regards to the interval history. PENDING SALE TO [facility] All Active Problems (Updated 01/30/25 @ 16:36 by John Jefferson MD) Encounter for screening colonoscopy (Acute) Celiac disease (Acute) predominantly constipation Worried well (Acute) Epigastric pain (Acute) Left rotator cuff tear (Acute) Bursitis of left shoulder (Acute) Neoplasm of axillary lymph nodes (Acute) History of skin cancer (Acute) left upper arm Axillary lymphadenopathy (Acute) Inguinal lymphadenopathy (Acute) Abdominal bloating (Acute) Impacted cerumen, right ear (Acute) Bursitis of shoulder, right (Acute) Fibromyalgia (Acute) Morbid obesity (Acute) Sjoegren syndrome (Acute ~06/28/18) Surgical History (Updated 01/28/25 @ 15:59 by Nitin Bauman) Hx of cholecystectomy section X 2 [place]GD - [place]02[place]06[place]13[place] [facility] [place] [facility] [place] History Father , 66 Heart disease Hypertension Stroke Mother , 66 Colon cancer Sister No problems noted. Sister Asthma Hypertension Brother No problems noted. Brother No problems noted. Son No problems noted. Daughter No problems noted. 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 Pets and animals: No Sexually active: Yes Do you think of yourself as: straight/heterosexual Current gender identity: female What is your relationship status?: How often do you talk on the phone with friends or family?: three or more times per week How often do you get together with friends or relatives?: three or more times per week How often do you attend worship or church services?: 4 or more times per year Do you belong to any clubs or organized social groups?: no Panel score (0-1 are the most socially isolated patients): 3 What type of physical activity do you participate in: other Details: treadmill/gym Duration: 30-45 minutes/day Frequency: 5-6 times per week Emily/Sikhism: Anglican Agree to transfusion: Yes Seatbelt use: always Helmet use: Yes Helmet use: always Drive intox or ride w/intox show 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 Working smoke detector in home: Yes Carbon monox detector in home: Yes Firearms in home: Yes Firearms unloaded and locked: Yes Do you feel safe at home: Yes Do you feel safe in your relationship?: Yes Victim of physical abuse: No Victim of emotional abuse: No Victim of sexual abuse: No Meds Allergies and Home Medications Allergies Allergy/AdvReac Type Severity Reaction Status Date / Time gluten AdvReac Severe Severe Verified 01/31/25 07:31 constipation levofloxacin (From Levaquin) AdvReac Severe Contraindic Verified 01/31/25 07:31 ated Home Medications ?Medication ?Instructions ?Recorded ?Confirmed ?Type lactulose 10 gram/15 mL oral 30 g PO BID PRN #500 mL 04/01/15 01/28/25 History solution cevimeline 30 mg capsule 1 cap PO TID 10/15/19 01/31/25 History gabapentin 300 mg capsule 300 mg PO TID 10/15/19 01/31/25 History hydroxychloroquine 200 mg tablet 400 mg PO DAILY 10/15/19 01/31/25 History cyclobenzaprine 5 mg tablet 5 mg PO TID PRN muscle spasm #6 11/01/21 01/28/25 Rx tabs triamcinolone acetonide 0.1 % 1 applic topical BID PRN leg rash 09/06/23 01/28/25 Rx topical cream #80 grams estradiol 0.01% (0.1 mg/gram) vaginal 11/07/24 12/18/24 History vaginal cream fluoride (sodium) 1.1 % dental 1 applic PO DAILY PRN 11/07/24 01/28/25 History paste (PreviDent 5000 Booster Plus) ibuprofen 800 mg tablet 800 mg PO TID PRN pain #90 tabs 11/07/24 01/28/25 Rx Exam Const General: cooperative, healthy appearing and not in acute distress Neck Neck: normal visual inspection, no lymphadenopathy and supple Thyroid: thyroid normal Resp Effort & Inspection: normal respiratory effort Auscultation: clear to auscultation bilaterally Cardio Jugular venous pressure: no JVD Rate: regular rate Rhythm: regular rhythm Heart Sounds: S1 normal and S2 normal GI Inspection: normal to inspection Palpation: soft, no guarding, no hernias and nontender Percussion: normal to percussion Auscultation: normal bowel sounds Neuro General: patient alert, patient awake and patient oriented x3 Psych Appearance: grossly normal
--- NOTE | 2025-01-30 16:36 | PDOC.DSDIS_ITS ---
Date of service: 01/31/25 Discharge Plan Disposition Patient Disposition: Home Condition: Good Discharge Details Reason For Visit: EGD and colonoscopy Attending Provider: John Jefferson Primary Care Provider: Anthony Samaniego Home Meds and New Rx's Prescriptions: New sucralfate 1 gram tablet 1 g PO BID Qty: 60 3RF Continued fluoride (sodium) [PreviDent 5000 Booster Plus] 1.1 % paste 1 applic PO DAILY PRN estradiol 0.01 % (0.1 mg/gram) cream vaginal Patient Comments: APPLY 1 GRAM INTRAVAGINALLY THREE TIMES WEEKLY AT BEDTIME ibuprofen 800 mg tablet 800 mg PO TID PRN (Reason: pain) Qty: 90 3RF triamcinolone acetonide 0.1 % cream 1 applic topical BID PRN (Reason: leg rash) Qty: 80 0RF lactulose 10 GM/15 ML solution 30 g PO BID PRNQty: 500 Rx Instructions: maximum dose is 60 gm (no more than twice/day) gabapentin 300 mg capsule 300 mg PO TID hydroxychloroquine 200 mg tablet 400 mg PO DAILY cevimeline 30 mg capsule 1 cap PO TID cyclobenzaprine 5 mg tablet 5 mg PO TID PRN (Reason: muscle spasm) Qty: 6 0RF Discontinued polyethylene glycol 3350 17 gram/dose powder 238 g PO ONCE Qty: 238 0RF Rx Instructions: take per colonoscopy instructions bisacodyl [Dulcolax (bisacodyl)] 5 mg tablet,delayed release (DR/EC) 5 mg PO ONCE Qty: 4 0RF Rx Instructions: take per colonoscopy instructions Discharge Instructions Instructions: Diverticulosis, Acid reflux and GERD in adults Additional Instructions: Ai, it was good seeing you today, and I hope you feel well after the procedure. Things went very smoothly. With regards to the upper endoscopy. There is a little bit of irregularity at the connection between your esophagus and your stomach. I suspect this is most consistent with gastroesophageal reflux disease. I did do some biopsies of this area. With regards to the question of a hiatal hernia, it appears that there is probably a grade 1 sliding-type hiatal hernia. I am a little skeptical that this is contributing to any symptomatology, and at least based on its appearance, it is hard for me to imagine that a surgeon would recommend repair of this. However, more than happy to refer you for a second opinion if you are interested in that. You have a little bit of bile in your stomach as well, that could be consistent with bile reflux gastritis. This occurs when bile that normally drains down from the l iver into the small intestine spills back up into the stomach a bit. Based on your history, I suspect this may be the most significant contributing factor. I did put a prescription in for a medication called sucralfate, that you are welcome to try. I did do some biopsies of your stomach as well as your GE junction. Those results will take about a week or 2 to get back, but once my office has those, we will be in touch with any other recommendations. With regards to the colonoscopy, you have some diverticulosis, but I did not see any signs of tumors or polyps, or anything else particularly worrisome. Based on your family history, would recommend another colonoscopy in 5 years. If you need anything or have any questions at all, please do not hesitate to ask at any time. 1. If tolerated, consume a soft, low fiber diet for 1-2 days. 2[address] Do not drive, drink alcohol, operate machinery, make critical decisions, or do activities that require coordination or balance for 24 hours. 3. Because air was put into your colon during the procedure, expelling air from your rectum (passing gas or farting) is normal. 4. You may not have a bowel movement for 1-3 days because of the colonoscopy prep. This is normal. 5. You may experience a sore throat for 24 to 48 hours. You may use throat lozenges or gargle with warm salt water to relieve the discomfort. 6. Because air was put into your stomach during the procedure, you may experience some belching. 7. Go directly to the emergency room if you notice any of the following: Develop chills (warm to touch), or if you have a thermometer and your temperature is above 101 Difficulty breathing or difficultly swallowing Persistent vomiting Severe abdominal pain, other than gas cramps Severe chest pain Black, tarry stools Any bleeding ? exceeding one tablespoon 8. Call your physician if the site where your intravenous was started becomes red, swollen, painful, and warm to touch. 9. Your physician has reviewed your pre-procedure medications. Please continue to take those medications as previously ordered. You will be given specific information/education regarding any changes to your medications before leaving. Activity:: Activity as Tolerated Diet:: As Tolerated Discharge Orders Discharge Orders: Discharge Order (Routine); Ordered 01/30/25 Ordered By: John Jefferson DS: Diagnosis Discharge Diagnosis (1) Encounter for screening colonoscopy: Status: Acute Asessment and Plan: Diverticulosis; otherwise negative screening colonoscopy. Follow-up in 5 years based on family history Mild bile reflux, with gastroesophageal reflux disease
--- NOTE | 2025-01-30 16:37 | W.PM.ENDDOP ---
Date of service: 01/31/25 Time of Service: 08:57 Endoscopy Report DATE OF PROCEDURE: 01/31/25 PRE-OP DIAGNOSIS: Screening EGD and colonoscopy POST-OP DIAGNOSIS: other (Bile reflux gastritis, sliding hiatal hernia; sigmoid diverticulosis) PROCEDURE: EGD with biopsies and colonoscopy SURGEON: John Jefferson ANESTHESIA TYPE: General:No Airway ESTIMATED BLOOD LOSS: 10 PATHOLOGY: other (Nondirected biopsies of gastric antrum and body to rule out Helicobacter pylori, four-quadrant biopsies of GE junction) COMPLICATIONS: None DISPOSITION: same day INDICATIONS: Ai is a 65-year-old woman with a known hiatal hernia, and new onset nonspecific upper abdominal symptoms concerning for gastroesophageal reflux disease. She also has a first-degree family history of colon cancer, and needs a follow-up screening colonoscopy PREP: Miralax/Dulcolax PROCEDURE START TIME: 08:17 PROCEDURE END TIME: 08:41 COLONOSCOPY RETRACTION TIME: 10 FINDINGS: Grade 1 sliding hiatal hernia, bile reflux; sigmoid diverticulosis PROCEDURE DESCRIPTION: After the initiation of monitored anesthetic care, and with the assistance of a bite block, I advanced a standard gastroscope through the mouth past the hypopharynx and into the esophagus.? Under the direct vision of the scope, I advanced down the esophagus into the stomach.? Once I entered the stomach, I performed a brief inspection, followed by retroflexion towards the gastric cardia.? This appeared normal.? After that, I gently advanced the scope around the incisura angularis and examined the pylorus.? There was some evidence of bile reflux within the gastric antrum and body.? Next, I advanced the scope through the pylorus into the duodenum.? The mucosa was pink and healthy appearing.? There were no abnormalities.? I was able to visualize bile draining into the duodenum through the ampulla Vater. ?Next, I began retracting the endoscope.? I brought the camera back up into the stomach and perform some nondirected cold forceps biopsies of the gastric antrum and body to rule out Helicobacter pylori. I then brought the camera back up to the GE junction. There was less than 2 cm of irregularity of the Z-line extending from about 35 to 36 cm at the GE junction. Narrowband imaging was used. Features seem more consistent with simple reflux as opposed to Newell's esophagus, however, to be safe, I did do some cold forceps biopsies of all 4 quadrants here. There was minimal bleeding. I brought the camera out along the length of the esophagus 1 last time. No other abnormalities were appreciated We then rolled Ai into the left lateral decubitus position. I began by performing an external anorectal exam.? Perineum and skin were normal, as was the anal verge.? There are external hemorrhoids.? Next, I performed a digital rectal exam.? I did not appreciate any abnormal findings.? Next, I advanced a colonoscope into the rectal vault.? I performed retroflexion.? This appeared normal.? Using irrigation, I then advanced the colonoscope beyond the rectal folds and into the sigmoid colon before advancing towards the cecum.? The scope was noted to be in the cecum by identification of the ileocecal valve and appendiceal orifice.? I then began withdrawing the colonoscope using repeated irrigation as necessary for full evaluation of the colonic mucosa. ?There is sigmoid diverticulosis. Once the scope was withdrawn to the level of the rectum, great care was taken to examine portions of the rectal folds.? Finally, the scope was withdrawn and the patient was brought to the same-day surgery recovery unit as the anesthetic wore off. ?The findings and instructions were shared with the patient prior to discharge. [place] bowel prep score from right to left was 2, 2, 2
[2025-01-31 07:17] VITALS: BP 127/73; PULSE 70; RESP 16; TEMP 36.4; O2SAT 99
--- NOTE | 2025-01-31 07:29 | NUR.NOTE ---
jewlery removed by pt including necklace , bracelets and rings Nursing Note:
[2025-01-31] MEDS: Lactated Ringers 1,000 ML 80 ML IV (07:35)
--- NOTE | 2025-01-31 07:59 | ANES.PREOP_ITS ---
General Info Date of Service Date Performed: 01/31/25 Height: 5 ft 2 in Weight: 85.8 kg Body Mass Index (BMI): 34.6 Surgical Procedure: Operation Date: 01/31/25 08:05 Proposed Procedure Side Surgeon p Colonoscopy/Gastroscopy John Jefferson MD Meds Allergies and Home Medications Allergies Allergy/AdvReac Type Severity Reaction Status Date / Time gluten AdvReac Severe Severe Verified 01/31/25 07:31 constipation levofloxacin (From Levaquin) AdvReac Severe Contraindic Verified 01/31/25 07:31 ated Home Medication ?Medication ?Instructions ?Recorded lactulose 10 gram/15 mL oral 30 g PO BID PRN #500 mL 04/01/15 solution cevimeline 30 mg capsule 1 cap PO TID 10/15/19 gabapentin 300 mg capsule 300 mg PO TID 10/15/19 hydroxychloroquine 200 mg tablet 400 mg PO DAILY 10/15/19 cyclobenzaprine 5 mg tablet 5 mg PO TID PRN muscle spasm #6 11/01/21 tabs triamcinolone acetonide 0.1 % 1 applic topical BID PRN leg rash 09/06/23 topical cream #80 grams estradiol 0.01% (0.1 mg/gram) vaginal 11/07/24 vaginal cream fluoride (sodium) 1.1 % dental 1 applic PO DAILY PRN 11/07/24 paste (PreviDent 5000 Booster Plus) ibuprofen 800 mg tablet 800 mg PO TID PRN pain #90 tabs 11/07/24 Current Visit Medications: Current Medications Generic Name Dose Route Start Last Admin Trade Name Freq PRN Reason Stop Dose Admin Ringer's Solution 1,000 mls @ 80 mls/hr 01/31/25 06:00 01/31/25 07:35 IV 01/31/25 23:59 80 mls/hr INFUSION SERENITY Administration IV Miscellaneous Supplies 1 each 01/31/25 06:00 Iv Access IV 01/31/25 23:59 DIRECTED SERENITY Ondansetron HCl 4 mg 01/30/25 16:38 Ondansetron 4 Mg/2 Ml Vial IVP 03/01/25 16:37 Q4H PRN PRN Nausea / Vomiting Sodium Chloride 0 ml 01/31/25 06:00 Normal Saline Flush 10 Ml Syr IV 01/31/25 23:59 PRN PRN Sodium Chloride 0 ml 01/31/25 06:00 Normal Saline 10 Ml Vial IJ 01/31/25 23:59 DIRECTED PRN Sterile Water 0 ml 01/31/25 06:00 Water,Injection,Sterile 10 Ml Vial IJ 01/31/25 23:59 DIRECTED PRN PFSH Active Problems Active Problems: Problem Status Onset Code Encounter for screening colonoscopy Acute Z12.11 Celiac disease Acute K90.0 Worried well Acute Z71.1 Epigastric pain Acute R10.13 Left rotator cuff tear Acute M75.102 Bursitis of left shoulder Acute 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 History of skin cancer Acute Z85.828 Axillary lymphadenopathy Acute R59.0 Inguinal lymphadenopathy Acute R59.0 Abdominal bloating Acute R14.0 Impacted cerumen, right ear Acute H61.21 Bursitis of shoulder, right Acute M75.51 Fibromyalgia Acute M79.7 Morbid obesity Acute E66.01 Sjoegren syndrome Acute ~06/28/18 M35.00 Surgical History Surgical History (Updated 01/28/25 @ 15:59 by Nitin Bauman) Hx of cholecystectomy section X 2 EGD - IV Sedation (02/06/13) [facility] [place] Colonoscopy - IV Sedation (02/06/13) [facility] [place] Tobacco Smoking/Tobacco Use Status: Never Passive smoking exposure: Yes Alcohol Alcohol Intake: current Alcohol intake frequency: a few times a month Alcohol type: beer, wine and hard liquor Substance Use Substance use: Never Substance use type: does not use Vital Signs and Lab Results Vital Signs Most Recent Vital Signs in EMR: Most Recent Vital Signs Temp Pulse Resp BP Pulse Ox 36.4 C L 70 16 127/73 99 01/31/25 07:17 01/31/25 07:17 01/31/25 07:17 01/31/25 07:17 01/31/25 07:17 Lab Results Blood Type / Crossmatch: No Data to Display Complete Blood Count: No Data to Display Complete Metabolic Panel: No Data to Display Liver Function Panel: No Data to Display Coagulation Panel: No Data to Display Cardiac Panel: No Data to Display Arterial Blood Gas: No Data to Display Venous Blood Gas: No Data to Display Pancreas Panel: No Data to Display Thyroid Panel: No Data to Display Infectious Disease: 2 No Data to Display Blood Cultures: No Data to Display Toxicology Panel: No Data to Display Imaging and Studies Imaging and Studies Study information below may be from another EMR and interpreted by another provider. Please see original notes in EMR for more complete details. EKG Summary: 11/01/21: Exam: Resting ECG Reason for Exam: QT eval Patient Location: E HR:61 bpm ECG Measurements Heart Rate 61 AXIS MO 182 P -23 QRSd 114 QRS -22 QT 420 T-12 QTc 423 Conclusion Sinus rhythm...normal P axis, V-rate 60- 99 Low voltage, extremity leads...all extremity leads <0.5mV sinus rhythm at 61, normal axis, low voltage extremity leads, QTC 423, no STEMI I have reviewed and I agree with the emergency room physician's ECG interpretation. Echocardiogram Summary: 10/02/24: Conclusion Normal left ventricular wall thickness and chamber size. Ejection fraction is 60%. Wall motion is normal Normal right ventricular size and function Both atria are normal in size Aortic valve is trileaflet and mildly thickened without stenosis or regurgitation There is no additional significant valvular disease Ascending aorta measures 3.41 cm Estimated right ventricular systolic pressure is 24 mmHg Anesthesia Assessment and Plan Anesthesia History Personal History: No History of Anesthesia Complications Family History: No Family History of Anesthesia Complications Exercise Tolerance Exercise Tolerance: Metabolic Equivalents>4 Pertinent Negatives Pertinent Negatives: No Major Cardiovascular Symptoms or Complaints and No Major Pulmonary Symptoms or Complaints Cardiac & Pulmonary Exam Cardiac Exam: Normal S1/S2 Heart Sounds Pulmonary Exam: Clear Bilateral Breath Sounds Implantable Cardiac Device Does patient have a Pacemaker or an ICD?: No Airway Exam Known Difficult Airway: No Mallampati Class: 2 Mouth Opening: Normal (> 3cm) Thyromental Distance: Greater than 3 cm Neck Range of Motion: Full ROM Neck Circumference: Normal Teeth Condition: Normal Dentition ASA Classification ASA Score: ASA 2 Emergency Case?: No NPO Status NPO Status: NPO Clears >2 hours, Solids >8 hours Anesthesia Plan Resuscitation Status: Full Code Anesthesia Technique: General Anesthesia Airway Planned: Natural Airway Monitors Used: Standard Monitors
[2025-01-31 08:00] VITALS: BMI 34.6
--- NOTE | 2025-01-31 08:19 | STOM_PTH ---
PATIENT: Ai Morrison LOC: [facility] U#:[id number] AGE/SX: 65/F ROOM: RE01/31/[address]: John Jefferson MD : 1960 BED: DIS: 01/31/2025 SPEC #: [id number] RECD: 01/31/25 12:19 STATUS: TANYA RE #: [id number] CAMILA: 01/31/25 08:[address]: John Jefferson DEPT: Surgical Specimen RECD BY: Natalia Galan ENTERED: 01/31/25 12:20 SP TYPE: STOMACH OTHR DR: Anthony Samaniego MD Tissues: 1 - STOMACH BIOPSY 2 - STOMACH BIOPSY 3 - ESOPHAGUS BIOPSY Procedures: GROSS AND MICRO LEVEL 4 Comments: [id number]
[2025-01-31 08:59] VITALS: BP 122/79; PULSE 61; RESP 17; TEMP 36.5; O2SAT 97
--- NOTE | 2025-01-31 09:02 | W.ANESPOSTOP ---
Postoperative Evaluation Date, Time and Location Date Performed: 01/31/25 Time Performed: 08:55 Patient Location: Day Surgery Unit Vital Signs Most Recent Imported Vital Signs: Most Recent Vital Signs Temp Pulse Resp BP Pulse Ox 36.5 C 61 17 122/79 97 01/31/25 08:59 01/31/25 08:59 01/31/25 08:59 01/31/25 08:59 01/31/25 08:59 Pain Score Most Recent Pain Score: Most Recent Pain Score Pain Level 3 01/31/25 07:17 Assessment Mental Status: Awake (Alert & Oriented to Patient Baseline) Airway and Respiratory Function: Patent airway with normal (patient baseline) respiratory exam Cardiovascular Function: Hemodynamically Stable Hydration Status: Adequately Hydrated Nausea & Vomiting: No Nausea or Vomiting Pain: Pain is tolerable per patient Peripheral Nerve Block: Patient did not receive a nerve block
[2025-01-31 09:23] VITALS: BP 157/91; PULSE 60; RESP 20; TEMP 36.5; O2SAT 97
== END 2025-01-31 09:49 | disposition home or self-care (01) ==
PROVIDERS: PCP Family Medicine; Visit Provider Surgery
PROC: (CPT 43239; principal; 2025-01-31 08:00)
DX: Z12.11 Encounter for screening for malignant neoplasm of colon (principal); K29.70 Gastritis, unspecified, without bleeding; K44.9 Diaphragmatic hernia without obstruction or gangrene; K57.30 Diverticulosis of large intestine without perforation or abscess without bleeding; K31.89 Other diseases of stomach and duodenum; K22.89 Other specified disease of esophagus
CPT/HCPCS: 43239; 45378; 88305; J2003; J2704

== ENCOUNTER 2025-03-14 01:02 | Outpatient (CLI) | payer MEDICARE, BC, SELFPAY ==
[2025-03-14 07:38] LABS: Absolute Basophil Count 0.03 10^3/uL (0.0-0.2); Absolute Eosinophil Count 0.09 10^3/uL (0.0-0.7); Absolute Lymphocyte Count 1.37 10^3/uL (1.2-3.4); Absolute Neutrophil Count 1.67 10^3/uL (1.2-6.7); Basophils % 0.9 %; Eosinophils % 2.6 %; HCT 35.4 % (36.0-46.0); HGB 11.7 g/dL (11.2-15.7); Lymphocytes % 39.6 %; MCH 32.3 pg (27.0-33.0); MCHC 33.1 % (32.0-36.0); MCV 98 fL (80-95); MPV 10.6 fL (8.0-11.0); Monocytes % 8.7 %; Neutrophils % 48.2 %; Platelet Count 223 10^3/uL (130-400); RBC 3.62 10^6/uL (3.93-5.22); RDW 13.3 % (11.7-14.6); RDW-SD 47.9 fL; WBC 3.46 10^3/uL (4.4-10.8)
[2025-03-14 07:56] LABS: ALT 27 U/L (14-59); AST 22 U/L (15-37); Estimated GFR 62.52 (mL/min/1.73m2)
[2025-03-14 18:12] LABS: Rheumatoid Factor <8.6 IU/mL (<12.0)
[2025-03-17 10:17] LABS: C3 Complement 114 mg/dL (81-157); C4 Complement 21 mg/dL (13-39)
[2025-03-17 13:10] LABS: Albumin 62.4 % (55.8-66.1); Albumin g/dL 3.9 g/dL (3.6-5.2); Total Protein 6.3 g/dL (6.3-8.2)
== END 2025-03-14 01:03 | disposition home or self-care (01) ==
LOC: LBO 01:02
PROVIDERS: PCP Family Medicine; Visit Provider Internal Medicine
DX: Z79.1 Long term (current) use of non-steroidal anti-inflammatories (NSAID) (principal)
CPT/HCPCS: 36415; 82565; 82595; 84165; 84450; 84460; 85025; 86160; 86431

== ENCOUNTER 2025-09-19 09:43 | Outpatient (CLI) | payer MEDICARE, BC, SELFPAY ==
[2025-09-19 08:45] LABS: ESR 3 mm/hr (0-30)
[2025-09-19 08:48] LABS: Abs Immature Grans 0.01 10^3/uL (0.0-0.06); HCT 36.7 % (36.0-46.0); HGB 12.0 g/dL (11.2-15.7); Immature Grans % 0.3 %; MCH 31.8 pg (27.0-33.0); MCHC 32.7 % (32.0-36.0); MCV 97 fL (80-95); MPV 10.8 fL (8.0-11.0); Platelet Count 222 10^3/uL (130-400); RBC 3.77 10^6/uL (3.93-5.22); RDW 12.6 % (11.7-14.6); RDW-SD 44.8 fL; WBC 3.92 10^3/uL (4.4-10.8)
[2025-09-19 08:58] LABS: Glucose Negative (Negative)
[2025-09-19 09:39] LABS: C-Reactive Protein < 0.50 mg/dL (<=0.50)
[2025-09-19 09:40] LABS: Prot/Crea Ur Ratio 0.30 mg/mg Cr
[2025-09-19 12:47] LABS: Vitamin D 25 Total 41 ng/mL (30-100)
[2025-09-22 12:36] LABS: Albumin 60.9 % (55.8-66.1); Albumin g/dL 4.0 g/dL (3.6-5.2); Alpha 1 g/dL 0.20 g/dL (0.15-0.40); Alpha 2 g/dL 0.60 g/dL (0.50-1.00); Beta g/dL 0.70 g/dL (0.60-1.20); Gamma g/dL 1.00 g/dL (0.60-1.60); Total Protein 6.6 g/dL (6.3-8.2)
[2025-09-23 19:01] LABS: Cryoglobulin, S Negative %ppt (Negative)
== END 2025-09-19 09:44 | disposition home or self-care (01) ==
LOC: LBO 09:44
PROVIDERS: Internal Medicine Gastroenterology; PCP Family Medicine; Visit Provider Internal Medicine
DX: D53.9 Nutritional anemia, unspecified (principal); K90.0 Celiac disease; R79.89 Other specified abnormal findings of blood chemistry; K75.81 Nonalcoholic steatohepatitis (NASH)
CPT/HCPCS: 36415; 80076; 82306; 85652; 81003; 82565; 82595; 84156; 84165; 85025; 86140; 86160; 86431